=== PATIENT | male | born 1945 | race Caucasian/White ===

== ENCOUNTER → 2017-04-13 | Outpatient (CLI) | payer MEDICARE, OTHER ==
[~2017-04-13] MED LIST: ADVANCED IRON; ALBU17AE23 INH; ALBU8.5H2 IH; ASPI-875 PO; BECL8.7A5 IH; CARV12.53 PO; CEFU800T34 PO; CEPH500C PO; CLOP75TA28 PO; CLPD75T PO; CRV6.25T PO; DICL75TA2 PO; FOLI0.4T2 PO; FOLI1TAB24 PO; FOLIC ACID PO; FRS325T; FURO40TA4 PO; HYDR-3583 PO; HYDR-3812 PO; HYDR1TAB66 PO; INSASP10V SQ; INSU100I10 SQ; INSU100I14 SC; INSU100I14 SQ; INSU100I29 SC; INSU100V5 SQ; INSU100V6 SQ; KCL10CCR PO; KCL20TCR PO; METF-380 PO; METF1000 PO; METR500T PO; MTF500T; MTF500T PO; NORT50CA PO; NRT25C PO; OMEG-109 PO; OMG1KC PO; PANT40TA3 PO; PNT40TEC PO; POTA10TA14 PO; QVAR 40 MCG PO; RAMI5CAP PO; REGADENOSON 0.4 MG/5 ML SYR (LEXISCAN) IV ONE; RMP5C PO; SIMV40TA4 PO; SMV20T PO; VITAMIN B; VITAMIN C; WRF2T PO
[2017-04-13] MEDS: CATHETER FLUSH 10 ML SYR IV PRN ×2 (07:38→08:58)
[2017-04-13 08:56] VITALS: BP 181/76
--- NOTE | 2017-04-13 18:38 | STRESS TEST ---
DATE OF SERVICE: 04/13/2017 RESTING AND POST REGADENOSON TECHNETIUM 99M TETROFOSMIN SPECT CT IMAGING PRIMARY PHYSICIAN: Dr. Reddy CLINICAL DIAGNOSIS: Coronary artery disease, dilated cardiomyopathy, diabetes mellitus. Baseline images were carried out after injection of 10.64 mCi of technetium 9 Tetrofosmin. This was followed by 0.4 mg regadenoson and 30.2 mCi of technetium 9 Tetrofosmin for stress imaging. The electrocardiogram showed sinus rhythm at baseline and it did not change significantly with the regadenoson infusion. The electrocardiogram showed nonspecific ST abnormality throughout the study. The patient tolerated the procedure well and did not report symptoms. Review of images at rest and following stress does not indicate any distinct perfusion defects consistent with significant myocardial ischemia or infarction. Gated images show mild to moderate global hypokinesis with left ventricular ejection fraction of 42%. Left ventricular end diastolic volume is 135 mL. TID is absent (1.13). CONCLUSIONS: 1. Dilated cardiomyopathy with moderate cardiomegaly, global hypokinesis of the left ventricle, and left ventricular ejection fraction of 42%. 2. No evidence of significant myocardial ischemia or infarction on this study. Job ID: [id number] DocumentID: [id number] Dictated Date: 04/13/2017 11:38:59 Manager Publishing Date: 04/13/2017 13:33:18 Dictated By: KAMILLA QUESADA MD, MA, FACP, FACC,
== END ==
LOC: CARD 07:00
PROVIDERS: ATTEND Internal Medicine Cardiovascular Disease
DX: I25.10 Atherosclerotic heart disease of native coronary artery without angina pectoris (principal); I42.0 Dilated cardiomyopathy; N18.3 Chronic kidney disease, stage 3 (moderate); E88.1 Lipodystrophy, not elsewhere classified
CPT/HCPCS: 78452; 93017

== ENCOUNTER → 2017-04-19 | Outpatient (CLI) | payer MEDICARE, OTHER ==
[~2017-04-19] MED LIST changes: -REGADENOSON 0.4 MG/5 ML SYR (LEXISCAN) IV ONE
== END ==
LOC: CARD 12:51
PROVIDERS: ATTEND Internal Medicine Cardiovascular Disease
DX: I25.10 Atherosclerotic heart disease of native coronary artery without angina pectoris (principal); I42.0 Dilated cardiomyopathy; N18.3 Chronic kidney disease, stage 3 (moderate); E11.22 Type 2 diabetes mellitus with diabetic chronic kidney disease

== ENCOUNTER → 2018-01-11 | Outpatient (CLI) | payer MEDICARE, OTHER ==
[~2018-01-11] MED LIST changes: +ACHD5005 PO; -HYDR-3812 PO
--- NOTE | 2018-01-11 10:14 | Diagnostic Imaging Report ---
INDICATION: Chronic kidney disease, stage III. FINDINGS: The right kidney measures 10.3 x 4.1 x 5.9 cm. The left kidney measures 10.0 x 4.2 x 5.9 cm. The cortical thickness and echogenicity appear normal. No calculi or hydronephrosis is seen. The urinary bladder is unremarkable. Bilateral ureteral jets are visualized. IMPRESSION: Unremarkable renal ultrasound. Dictated by: Dictated on workstation # [id number]
== END ==
LOC: RAD 08:39
PROVIDERS: ATTEND Internal Medicine Nephrology
DX: N18.3 Chronic kidney disease, stage 3 (moderate) (principal); I12.9 Hypertensive chronic kidney disease with stage 1 through stage 4 chronic kidney disease, or unspecified chronic kidney disease; I50.9 Heart failure, unspecified; E11.65 Type 2 diabetes mellitus with hyperglycemia
CPT/HCPCS: 76770

== ENCOUNTER → 2019-07-02 | Outpatient (CLI) | payer MEDICARE, OTHER ==
[~2019-07-02] VITALS: Ht 175.3 cm; Wt 99.8 kg
[~2019-07-02] MED LIST changes: +CATHETER FLUSH 10 ML SYR IV PRN; +METF-399 PO; -METF1000 PO; -RAMI5CAP PO; +RAMI5CAP65 PO; +REGADENOSON 0.4 MG/5 ML SYR (LEXISCAN) IV ONE
[2019-07-02 12:57] VITALS: BP 137/74
[2019-07-02 13:00] VITALS: BP 168/74
--- NOTE | 2019-07-05 12:55 | STRESS TEST ---
DATE OF SERVICE: 07/02/2019 RESTING AND POST REGADENOSON TECHNETIUM-99M TETROFOSMIN SPECT CT IMAGING ORDERING PHYSICIAN: Dr. Perez. PRIMARY PHYSICIAN: . CLINICAL DIAGNOSES: Coronary artery disease, chronic systolic congestive heart failure, dilated cardiomyopathy. Baseline images were carried out after injection of 10.89 mCi of technetium-99m Tetrofosmin. This was followed by 0.4 mg of Regadenoson and 31 mCi of technetium-99m Tetrofosmin for stress imaging. The electrocardiogram showed sinus rhythm at baseline. There is nonspecific ST abnormality in the inferolateral leads. The electrocardiogram did not change significantly with Regadenoson infusion. The patient reported some shortness of breath and headache and flushing following Regadenoson infusion, which resolved in a few minutes after the cessation of Regadenoson injection. Review of images at rest and following stress does not indicate distinct perfusion defects consistent with significant myocardial ischemia or infarction. Gated images show mild to moderate global hypokinesis. Left ventricular ejection fraction is calculated to be 41%. Left ventricular end diastolic volume is 87 mL. TID is absent (0.99). CONCLUSIONS: 1. Mild to moderate global hypokinesis of left ventricle with an ejection fraction of 41%. 2. No evidence of significant myocardial ischemia or infarction on this study. Job ID: [id number] DocumentID: [id number] Dictated Date: 07/05/2019 10:01:25 Manager Ui Date: 07/05/2019 12:54:13 Dictated By: KAMILAL PEREZ MD, MA, FACP, FACC,
== END ==
LOC: CARD 10:02
PROVIDERS: ATTEND Internal Medicine Cardiovascular Disease
DX: I34.0 Nonrheumatic mitral (valve) insufficiency (principal); I25.10 Atherosclerotic heart disease of native coronary artery without angina pectoris; I50.22 Chronic systolic (congestive) heart failure; E11.22 Type 2 diabetes mellitus with diabetic chronic kidney disease; N18.3 Chronic kidney disease, stage 3 (moderate); I42.0 Dilated cardiomyopathy; I25.5 Ischemic cardiomyopathy; E78.5 Hyperlipidemia, unspecified; I73.9 Peripheral vascular disease, unspecified
CPT/HCPCS: 78452; 93017; 93306

== ENCOUNTER 2020-04-18 16:38 | Inpatient (IN) | payer MEDICARE, OTHER ==
[~2020-04-18] VITALS: Ht 179 cm; Wt 105.0 kg
[~2020-04-18 16:38] MED LIST changes: -CATHETER FLUSH 10 ML SYR IV PRN; -REGADENOSON 0.4 MG/5 ML SYR (LEXISCAN) IV ONE; +SIMV40TA25 PO
--- NOTE | 2020-04-18 16:53 | ED Back Pain ---
General Stated Complaint: FALL - BACK PAIN Source of Information: Patient Exam Limitations: No Limitations History of Present Illness Date Seen by Provider: Apr 18, 2020 Time Seen by Provider: 16:51 Initial Comments Left-sided thoracic back pain. He was working on his lawnmower when he fell backwards. No other injury. He only has one leg which is right leg. Location: T-Spine Timing/Duration: 1-2 Days Severity: Moderate Associated Symptoms: denies symptoms Allergies and Home Medications Allergies Coded Allergies: NKANo Known Allergies (Unverified Allergy, Mild, 07/25/07) Home Medications Amoxicillin/Potassium Clav 1 Each Tablet, 1 EACH PO BID Prescribed by: MARY STREETER on 04/18/201800 Aspirin 81 Mg Tablet.dr, 81 MG PO HS, (Reported) Carvedilol 12.5 Mg Tablet, 12.5 MG PO BID, (Reported) Clopidogrel Bisulfate 75 Mg Tablet, 75 MG PO DAILY, (Reported) Furosemide 40 Mg Tablet, 40 MG PO DAILY, (Reported) Insulin Aspart 300 Units/3 Ml Solution, 10 UNITS SC AC, (Reported) Insulin Detemir 100 Unit/1 Ml Insuln.pen, 20 UNITS SC HS, (Reported) Nortriptyline HCl 50 Mg Capsule, 50 MG PO HS, (Reported) [place]-3 Fatty Acids/Fish Oil 1 Each Capsule, 1,200 MG PO BID, (Reported) Pantoprazole Sodium 40 Mg Tablet.dr, 40 MG PO DAILY, (Reported) Prednisone 20 Mg Tab, 40 MG PO DAILY Prescribed by: MARY STREETER on 04/18/201800 Ramipril 5 Mg Capsule, 5 MG PO DAILY, (Reported) Simvastatin 40 Mg Tablet, 40 MG PO HS, (Reported) Patient Home Medication List Home Medication List Reviewed: Yes Review of Systems Constitutional: see HPI EENTM: see HPI Respiratory: no symptoms reported Cardiovascular: no symptoms reported Genitourinary: no symptoms reported Musculoskeletal: no symptoms reported Psychiatric/Neurological: No Symptoms Reported Past Stxxlqn-Gnjssj-Lrydza Hx Patient Social History Recent Foreign Travel: No Contact w/Someone Who Travel: No Immunizations Up To Date Tetanus Booster (TDap): Unknown PED Vaccines UTD: No Date of Pneumonia Vaccine: Jun 10, 2011 Date of Influenza Vaccine: Aug 07, 2015 Past Medical History Gallbladder COPD Currently Using CPAP: No Currently Using BIPAP: No Heart Attack, High Cholesterol, Hypertension Reproductive Disorders: No Sexually Transmitted Disease: No HIV/AIDS: No Abdominal Hernia, Gastroesophageal Reflux Amputee Diabetes, Insulin dep Loss of Vision: Denies Hearing Impairment: Hard of Hearing Adverse Reaction/Blood Tranf: No Family Medical History Cardiovascular disease 19 FATHER, Onset:60 years & older FH: breast cancer 19 MOTHER, Onset:Unknown G8 SISTER, Onset:Unknown FHx: mental retardation G8 SISTER, Onset:Pre- Myocardial infarction G8 BROTHER, Onset:Unknown G8 BROTHER, Onset:Unknown G8 BROTHER, Onset:Unknown G8 BROTHER, Onset:Unknown G8 BROTHER, Onset:Unknown G8 SISTER, Onset:40's - 50 Physical Exam Vital Signs Vital Signs - First Documented 04/18/20 04/18/20 16:54 16:56 Temp 36.9 Pulse 84 Resp 18 B/P (MAP) 158/67 (97) Pulse Ox 93 O2 Delivery Room Air O2 Flow Rate 2.00 FiO2 92 Capillary Refill : Height, Weight, BMI Height: 5'9.00" Weight: 220lbs. 0.0oz. 99.520350dh; 32.5 BMI Method:Stated General Appearance: WD/WN, Moderate Distress, Obese Neck: Full Range of Motion, Normal Inspection Respiratory: Normal Breath Sounds, No Accessory Muscle Use, No Respiratory Distress Gastrointestinal: Normal Bowel Sounds, Non Tender, Soft Neurologic/Psychiatric: Alert, Oriented x3 Skin: Normal Color Progress/Results/Core Measures Results/Orders Lab Results Laboratory Tests Test 04/18/20 16:54 04/18/20 18:20 Range/Units White Blood Count 14.9 H 4.3-11.0 10^3/uL Red Blood Count 4.66 4.35-5.85 10^6/uL Hemoglobin 14.1 13.3-17.7 G/DL Hematocrit 42 40-54 % Mean Corpuscular Volume 91 80-99 FL Mean Corpuscular Hemoglobin 30 25-34 PG Mean Corpuscular Hemoglobin Concent 33 32-36 G/DL Red Cell Distribution Width 14.4 10.0-14.5 % Platelet Count 257 130-400 10^3/uL Mean Platelet Volume 11.5 H 7.4-10.4 FL Neutrophils (%) (Auto) 64 42-75 % Lymphocytes (%) (Auto) 20 12-44 % Monocytes (%) (Auto) 11 0-12 % Eosinophils (%) (Auto) 4 0-10 % Basophils (%) (Auto) 0 0-10 % Neutrophils # (Auto) 9.6 H 1.8-7.8 X 10^3 Lymphocytes # (Auto) 3.0 1.0-4.0 X 10^3 Monocytes # (Auto) 1.7 H 0.0-1.0 X 10^3 Eosinophils # (Auto) 0.6 H 0.0-0.3 10^3/uL Basophils # (Auto) 0.0 0.0-0.1 10^3/uL Neutrophils % (Manual) 58 % Lymphocytes % (Manual) 20 % Monocytes % (Manual) 5 % Eosinophils % (Manual) 9 % Basophils % (Manual) 0 % Band Neutrophils 0 % Reactive Lymphocytes 8 % Anisocytosis SLIGHT Sodium Level 141 135-145 MMOL/L Potassium Level 4.6 3.6-5.0 MMOL/L Chloride Level 106 98-107 MMOL/L Carbon Dioxide Level 21 21-32 MMOL/L Anion Gap 14 5-14 MMOL/L Blood Urea Nitrogen 47 H 7-18 MG/DL Creatinine 2.35 H 0.60-1.30 MG/DL Estimat Glomerular Filtration Rate 27 BUN/Creatinine Ratio 20 Glucose Level 83 70-105 MG/DL Calcium Level 9.6 8.5-10.1 MG/DL Corrected Calcium 9.4 8.5-10.1 MG/DL Total Bilirubin 0.4 0.1-1.0 MG/DL Aspartate Amino Transf (AST/SGOT) 21 5-34 U/L Alanine Aminotransferase (ALT/SGPT) 20 0-55 U/L Alkaline Phosphatase 59 40-136 U/L B-Type Natriuretic Peptide 20.3 <100.0 PG/ML Total Protein 7.8 6.4-8.2 GM/DL Albumin 4.2 3.2-4.5 GM/DL My Orders Orders - MARY STREETER [facility] Ct Chest Wo (04/18/20 16:50) Ed Iv/Invasive Line Start (04/18/20 16:50) Fentanyl Injection (Sublimaze Injection (04/18/20 17:00) Cbc With Automated Diff (04/18/20 17:34) Comprehensive Metabolic Panel (04/18/20 17:34) BNP (04/18/20 17:34) Manual Differential (04/18/20 16:54) Coronavirus Sars-Cov-2 So 2018 (04/18/20 17:47) Methylprednisolone Sod Succ (Solu-Medrol (04/18/20 18:15) Ceftriaxone For Iv Use (Rocephin For I (04/18/20 18:15) Furosemide Injection (Lasix Injection) (04/18/20 18:15) Rx-Hydrocodone/Apap 5-325 Mg (Rx-Vicodin (04/18/20 18:45) Arterial Blood Gas (04/18/20 18:58) Procalcitonin (Pct) (04/18/20 18:58) Medications Given in ED Current Medications Medications Dose Ordered Sig/Amelia Route Start Time Stop Time Status Last Admin Dose Admin Ceftriaxone Sodium 1000 mg/ Sterile Water 10 ml @ 200 mls/hr ONCE ONCE IV 04/18/20 18:15 04/18/20 18:17 DC 04/18/20 18:16 200 MLS/HR Fentanyl Citrate 50 mcg ONCE ONCE IVP 04/18/20 17:00 04/18/20 17:01 DC 04/18/20 17:20 50 MCG Furosemide 40 mg ONCE ONCE IVP 04/18/20 18:15 04/18/20 18:16 DC 04/18/20 18:16 40 MG Methylprednisolone Sodium Succinate 80 mg ONCE ONCE IV 04/18/20 18:15 04/18/20 18:16 DC 04/18/20 18:28 80 MG Vital Signs/I&O 04/18/20 04/18/20 16:54 16:56 Temp 36.9 Pulse 84 Resp 18 B/P (MAP) 158/67 (97) Pulse Ox 93 94 O2 Delivery Room Air Nasal Cannula O2 Flow Rate 2.00 FiO2 92 Departure Communication (Admissions) Time/Spoke to Admitting Phy: 19:[address] Escobedo who agrees to admit, consult Dr. Hardy due to the chest wall pain from trauma, consult Dr. Petty for thepulmonary questions. 1751-given CT findings and hypoxia (88% on room air, 95% on 2 L) I did recommend he be swabbed for Covid and admitted to the hospital for supplemental oxygen as well as potentially Lasix and cardiology consult. He states he wants to go home. I discussed with him the risks of going home including worsening hypoxia, wo rsening of heart failure, or permanent disability. He agrees to sign out AGAINST MEDICAL ADVICE and go home. He would agree to using some Lasix. He denies any previous history of lung troubles. 1901-patient has now decided to stay and be admitted as he is unable to get into the wheelchair because of severe left-sided thoracic back pain. Impression Primary Impression: Hypoxia Additional Impressions: Contusion of back CHF (congestive heart failure) Disposition: ADMITTED INPATIENT Condition: Stable Admissions Decision to Admit Reason: Admit from ER (General) Decision to Admit/Date: Apr 18, 2020 Time/Decision to Admit Time: 19:03 Departure-Patient Inst. Decision time for Depature: 17:54 Referrals: JS CUNHA MD (PCP/Family) Primary Care Physician Patient Instructions: Bruised Rib Add. Discharge Instructions: 1. Your chest CAT scan has an abnormal appearance which could indicate heart failure or infectious process or structural lung disease like COPD. Admission to the hospital for further workup was recommended as well as for supplemental oxygen. He needs to follow-up with his regular doctor this week for recheck. Your Covid19 swab will be resulted within 24-48 hours. He needs to go home and self quarantine away from family and friends until that has been returned. Take antibiotics and steroids and diuretic as directed. Scripts Prednisone (Prednisone) 20 Mg Tab 40 MG PO DAILY, #6 TAB 0 Refills Prov: MARY STREETER APRN 04/18/20 Amoxicillin/Potassium Clav (Augmentin 875-125 Tablet) 1 Each Tablet 1 EACH PO BID, #14 TAB 0 Refills Prov: MARY STREETER APRN 04/18/20 Images Torso/Trunk 1 - Tenderness Copy Copies To 1: JS CUNHA MD, PETER J APRN Apr 18, 2020 16:53
[2020-04-18] MEDS ORDERED: fentaNYL INJECTION 100 MCG/2 ML AMP IVP ONE (17:00)
[2020-04-18 17:38] LABS: BASOPHILS % (AUTO) 0 % (0-10); EOSINOPHILS # (AUTO) 0.6 10^3/uL (0.0-0.3); EOSINOPHILS % (AUTO) 4 % (0-10); HEMATOCRIT 42 % (40-54); HEMOGLOBIN 14.1 G/DL (13.3-17.7); LYMPHOCYTES % (AUTO) 20 % (12-44); MEAN CORPUSCULAR HEMOGLOBIN 30 PG (25-34); MEAN CORPUSCULAR HGB CONC 33 G/DL (32-36); MEAN CORPUSCULAR VOLUME 91 FL (80-99); MEAN PLATELET VOLUME 11.5 FL (7.4-10.4); MONOCYTES # (AUTO) 1.7 X 10^3 (0.0-1.0); MONOCYTES % (AUTO) 11 % (0-12); NEUTROPHILS # (AUTO) 9.6 X 10^3 (1.8-7.8); NEUTROPHILS % (AUTO) 64 % (42-75); PLATELET COUNT 257 10^3/uL (130-400); RED CELL DISTRIBUTION WIDTH 14.4 % (10.0-14.5); WHITE BLOOD COUNT 14.9 10^3/uL (4.3-11.0)
[2020-04-18 17:43] LABS: ALBUMIN 4.2 GM/DL (3.2-4.5)
[2020-04-18 17:44] LABS: POTASSIUM 4.6 MMOL/L (3.6-5.0)
--- NOTE | 2020-04-18 17:44 | Diagnostic Imaging Report ---
PROCEDURE: CT chest without contrast. TECHNIQUE: Multiple contiguous axial images were obtained through the chest without the use of intravenous contrast. Auto Exposure Controls were utilized during the CT exam to meet ALARA standards for radiation dose reduction. INDICATION: Fall. Back pain. COMPARISON: None. FINDINGS: Cardiac and mediastinal structures show mild cardiomegaly. Indwelling AICD is noted. There is moderate to advanced calcified aortic and coronary atherosclerosis. Right coronary arterial stent is noted. There is no large pericardial effusion. No pathologically enlarged or morphologically abnormal adenopathy is seen within the mediastinum, marisol nor axilla. Evaluation of lung cobos demonstrates background moderate emphysematous disease within the bilateral mid and upper lung cobos. Note is made of a 1.4 x 1.0 cm nodular opacity within the posterior medial right upper lobe (image 39, series 3). Note is made, however, of mild scattered ground glass densities with septal thickening. No other focal consolidation is seen. There is no large effusion or pneumothorax on either side. Osseous structures show age-related degenerative changes. No acute bony abnormalities are seen. Included portions of the upper abdomen show no acute abnormality. IMPRESSION: 1. No acute cardiopulmonary process. 2. Mild cardiomegaly with probable interstitial pulmonary edema. 3. Moderate emphysematous disease within the bilateral mid and upper lung cboos. 4. Nodular density within the posterior medial margins of the right upper lobe. Findings could be on the basis of focal inflammatory or infectious process, although true soft tissue nodule cannot be excluded. Further characterization with CT PET versus CT-guided biopsy is advised. Dictated by: Dictated on workstation # [id number]
[2020-04-18 17:45] LABS: CALCIUM 9.6 MG/DL (8.5-10.1)
[2020-04-18 17:46] LABS: TOTAL PROTEIN 7.8 GM/DL (6.4-8.2)
[2020-04-18 17:48] LABS: BILIRUBIN,TOTAL 0.4 MG/DL (0.1-1.0)
[2020-04-18 17:50] LABS: CREATININE SERUM 2.35 MG/DL (0.60-1.30)
[2020-04-18 17:54] LABS: ANISOCYTOSIS SLIGHT; BAND NEUTROPHILS 0 %; BASOPHILS % (MANUAL) 0 %; EOSINOPHILS % (MANUAL) 9 %; LYMPHOCYTES % (MANUAL) 20 %; MONOCYTES % (MANUAL) 5 %; NEUTROPHILS % (MANUAL) 58 %; REACTIVE LYMPHOCYTES 8 %
[2020-04-18] MEDS ORDERED: PRD20T PO (18:01)
[2020-04-18] MEDS ORDERED: AMOX-358 PO (18:01)
[2020-04-18] MEDS ORDERED: methylPREDNISolone 40 MG/ML (Solu-MEDROL) VIAL IV ONE (18:15)
[2020-04-18] MEDS ORDERED: cefTRIAXone FOR IV USE 1,000 MG in WATER (STERILE) FOR INJECTION 10 ML IV ONE (18:15)
[2020-04-18] MEDS ORDERED: FUROSEMIDE 40 MG/4 ML INJ (LASIX) IVP ONE (18:15)
--- NOTE | 2020-04-18 18:15 | NUR ---
OXYGEN TURNED OFF.
--- NOTE | 2020-04-18 18:30 | NUR ---
PULSE OX 91%RA.
[2020-04-18] MEDS ORDERED: RX-HYDROCODONE/APAP 5/325 MG #4 TAB PK PO PRN (18:45)
--- NOTE | 2020-04-18 18:53 | NUR ---
AFTER ATTEMPTING TO GET PT UP TO CHAIR PT STATES HE CANT BECAUSE OF PAIN. DECIDED TO BE ADMITTED AFTER IV DC AND SIGNED AMA PAPER WORK. PT REFUSES TO PUT OXYGEN BACK ON. MARY NOTIFIED.
--- OUTSIDE RECORDS SUMMARY | 2020-04-18 19:31 | XMS REPORT ---
Author Author Carroll CUNHA Organization [facility] Address [address] [place] [address] Care Team Providers Care Tile Molder Name Role Phone JS CUNHA Unavailable PROBLEMS Type Condition ICD9-CM Code DFG22-GA Code Onset Dates Condition S tatus SNOMED Code Problem Coronary disease I25.10 Active 537 41495 Problem Arthritis M19.90 Active 6200814 Problem Gastroesophageal reflux disease, esophagitis pre sence not specified K21.9 Active 662737716 Problem Chronic kidney disease, stage IV (severe) N18.4 Active 947655183 Problem Secondary hyperparathyroidism of renal origin N25. 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 391325164 Problem Chronic systolic (congestive) heart failure I50.22 Active 261877823 Problem Essential hypertension I10 Active 04506425 Problem Anxiety F41.9 Active 95017279 Problem Amputated left leg Z89.612 Active 1 [id number] Problem Phantom limb pain G54.6 Active 57 02913443489 Problem Diabetes E11.9 Active 500815283 ALLERGIES No Information ENCOUNTERS Encounter Location Date Diagnosis [facility] [address] [facility] [id number] [address] [place] [id number] 18 Jan, [id number] [place] [phone] 17 Jan, 2020 Anxiety F41.9 [facility] [address] [facility] [id number] [address] [place] [phone] Jan, Nail hypertrophy L60.2 ; 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 ; Onychomycosis B35.1 and Self-care deficit for grooming and hygiene Z74.1 [place] [address] [place] [id number] [address] [place] [id number] 25 Dec, 2019 Type 2 diabetes mellitus wit h diabetic nephropathy E11.21 ; Phantom limb pain G54.6 ; Chronic kidney disease, stage IV (severe) N18.4 ; Secondary hyperparathyroidism of renal origin N25.81 ; Chronic systolic (congestive) heart failure I50.22 and Peripheral vascular disease, unspecified I73.9 [place] [address] [place] [id number] [place] [phone] 17 Dec, 2019 [place] [address] [place] [id number] [place] [phone] Dec, [place] [address] [place] [id number] [place] [phone] Oct, Nail hypertrophy L60.2 and O nychomycosis B35.1 [place] [address] [place] [id number] [place] [phone] Sep, Diabetes E11.9 ; Anxiety F41 .9 and Phantom limb pain G54.6 [place] [address] [place] [id number] [address] [place] [phone] Sep, [place] [address] [place] [id number] [place] [phone] Sep, [place] [address] [place] [id number] [address] [place] [phone] Aug, Diarrhea, unspecified type R 19.7 [facility] [address] [place] [id number] [address] [place] [phone] Aug, [facility] [address] [place] [id number] [address] [place] [phone] Aug, [place] [address] [place] [id number] [address] [place] [phone] Jul, Anxiety F41.9 [place] [address] [place] [id number] [address] [place] [phone] May, Phantom limb pain G54.6 and Amputated left leg Z89.612 [facility] [address] [id number] [address] [place] [phone] Apr, Phantom limb pain G54.6 [facility] [address] [id number] [address] [place] [id number] Apr, [facility] [address] [facility] [id number] [address] [place] [phone] Apr, [facility] [address] [facility] [id number] [address] [place] [phone] Apr, Nail hypertrophy L60.2 and S elf-care deficit for grooming and hygiene Z74.1 [place] [address] [facility] [id number] [address] [place] [phone] March, Type 2 diabetes mellitus wit h diabetic nephropathy E11.21 ; Chronic kidney disease, stage IV (severe) N18.4 ; Anxiety F41.9 and Amputated left leg Z89.612 [facility] [address] [facility] [id number] [address] [place] [phone] March, Anxiety F41.9 and Transient weakness of right lower extremity R29.898 [place] [address] [facility] [id number] [address] [place] [phone] March, [facility] [address] [facility] [id number] [address] [place] [phone] March, [facility] [address] [facility] [id number] [address] [place] [phone] Feb, [facility] [address] [facility] [id number] [address] [place] [id number] Aug, Anxiety F41.9 [facility] [address] [facility] [id number] [address] [place] [id number] Aug, Medicare annual wellness vis it, initial Z00.00 ; Encounter for immunization Z23 ; Coronary disease I25.10 ; Type 2 diabetes mellitus with diabetic nephropathy E11.21 ; Chronic kidney disease, stage IV (severe) N18.4 ; Secondary hyperparathyroidism of renal origin N25.81 ; Anxiety F41.9 and Gastroesophageal reflux disease, esophagitis presence not specified K21.9 [facility] [address] [place] [id number] [address] [place] [id number] Jul, Friction blister of right lo wer extremity, initial encounter S80.821A [place] [address] [address] Jul, Localized edema R60.0 ; Type 2 diabetes mellitus with diabetic nephropathy E11.21 ; Coronary disease I25.10 and Anxiety F41.9 [place] [address] [id number] Jun, [place] [address] [address] March, Type 2 diabetes mellitus wit h diabetic nephropathy E11.21 ; 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 ; Chronic kidney disease, stage IV (severe) N18.4 ; Secondary hyperparathyroidism of renal origin N25.81 ; Coronary disease I25.10 and Gastroesophageal reflux disease, esophagitis presence not specified K21.9 [place] [address] [address] Nov, Type 2 diabetes mellitus wit hout complications E11.9 ; Coronary disease I25.10 and Essential hypertension I10 [place] [id number] [place] [phone] May, Diabetes E11.9 [place] [address] [place] [id number] [address] [place] [phone] Apr, Type 2 diabetes mellitus wit hout complications E11.9 and Arthritis M19.90 [place] [address] [place] [id number] [address] [place] [phone] March, Diabetes E11.9 [place] [address] [place] [id number] [address] [place] [phone] March, Diabetes E11.9 [place] [address] [place] [id number] [address] [place] [phone] March, [facility] [address] [id number] [address] [place] [phone] Feb, Diabetes E11.9 [facility] [address] [id number] [address] [place] [phone] Feb, Diabetes E11.9 [facility] [address] [id number] [address] [place] [phone] Jan, [facility] [address] [id number] [address] [place] [phone] Jan, Diabetes E11.9 [facility] [address] [id number] [address] [place] [phone] Jan, Type 2 diabetes mellitus wit hout complications E11.9 [facility] [address] [id number] [address] [place] [phone] Oct, [facility] [address] [id number] [address] [place] [phone] Oct, Gastroesophageal reflux dise ase, esophagitis presence not specified K21.9 [facility] [address] [id number] [address] [place] [phone] Sep, [facility] [address] [facility] [id number] [address] [place] [phone] Sep, [facility] [address] [id number] [address] [place] [phone] Sep, [facility] [address] [id number] [address] [place] [phone] Aug, [facility] [address] [facility] [id number] [address] [place] [phone] Aug, Diabetes E11.9 and Encounter for immunization Z23 [facility] [address] [id number] [address] [place] [id number] Aug, [facility] [address] [id number] [address] [place] [address], [place] [id number] 08 Jul, 2016 [facility] [address] [id number] [address] [place] [address], [place] [id number] Jun, [facility] [address] [id number] [address] [place] [address], [place] [id number] May, Diabetes E11.9 [facility] [address] [id number] [address] [place] [address], [place] [id number] Apr, [facility] [address] [id number] [address] [place] [address], [place] [id number] Apr, [facility] [address] [id number] [address] [place] [address], [place] [id number] March, [facility] [address] [id number] [address] [place] [address], [place] [id number] March, [facility] [address] [id number] [address] [place] [address], [place] [id number] Feb, [facility] [address] [id number] [address] [place] [address], [place] [id number] Feb, [facility] [address] [id number] [address] [place] [address], [place] [id number] 18 Feb, 2016 [facility] [address] [id number] [address] [place] [phone] 14 Feb, 2016 [facility] [address] [id number] [address] [place] [address], [place] [id number] Feb, [facility] [address] [id number] [address] [place] [address], [place] [id number] Feb, Type 2 diabetes mellitus wit hout complications E11.9 [facility] [address] [id number] [address] [place] [address], [place] [id number] 08 Feb, 2016 [facility] [address] [id number] [address] [place] [address], [place] [id number] Jan, [facility] [address] [id number] [address] [place] [id number] Dec, Eustachian tube dysfunction H69.80 and Diabetes E11.9 [facility] [address] [facility] [id number] [address] [place] [phone] Dec, [facility] [address] [facility] [id number] [address] [place] [phone] Dec, [facility] [address] [id number] Dec, Type 2 diabetes mellitus wit hout complications E11.9 ; Atherosclerotic heart disease of [place] coronary artery without angina pectoris I25.10 and Diabetes E11.9 [facility] [address] [facility] [id number] [id number] Dec, [facility] [address] [id number] Dec, CHF (congestive heart failur e) I50.9 [facility] [address] [place] [id number] [address] [place] [phone] Nov, Diabetes E11.9 and Coronary disease I25.10 [facility] [address] [place] [id number] [address] [place] [phone] Oct, [facility] [address] [place] [id number] [address] [place] [phone] Aug, [facility] [address] [place] [id number] [address] [place] [id number] Jul, [facility] [address] [place] [id number] [address] [place] [id number] 08 Jul, 2015 DM w/o complication type II 250.00 and Spontaneous bleeding of digits 459.0 [facility] [address] [place] [id number] [address] [place] [id number] Apr, [facility] [address] [place] [id number] [address] [place] [phone] Apr, [facility] [address] [place] [id number] [address] [place] [id number] March, CHF (congestive heart failur e) 428.0 and Coronary atherosclerosis of unspecified type of vessel, [place] or graft 414.00 [facility] [address] [id number] [address] [place] [phone] March, [facility] [address] [id number] [address] [place] [phone] Feb, [facility] [address] [id number] [address] [place] [phone] Feb, [facility] [address] [id number] [address] [place] [phone] Jan, [facility] [address] [id number] [address] [place] [phone] Jan, [facility] [address] [id number] [address] [place] [phone] Dec, [facility] [address] [id number] [address] [place] [phone] Dec, [facility] [address] [id number] [address] [place] [phone] Dec, [facility] [address] [id number] [address] [place] [id number] Dec, [facility] [address] [id number] [address] [place] [id number] Dec, [facility] [address] [id number] [address] [place] [id number] Dec, [facility] [address] [id number] [address] [place] [id number] Nov, [facility] [address] [id number] [address] [place] [phone] Nov, [facility] [address] [id number] [address] [place] [id number] Oct, [facility] [address] [id number] [address] [place] [address], [place] [id number] Sep, [facility] [address] [id number] [address] [place] [address], [place] [id number] Sep, [facility] [address] [id number] [address] [place] [address], [place] [id number] Sep, [facility] [address] [id number] [address] [place] [address], [place] [id number] Sep, [facility] [address] [id number] [address] [place] [address], [place] [id number] Jul, [facility] [address] [id number] [address] [place] [address], [place] [id number] Jul, [facility] [address] [id number] [address] [place] [address], [place] [id number] Jul, [facility] [address] [id number] [address] [place] [address], [place] [id number] Jul, [facility] [address] [id number] [address] [place] [address], [place] [id number] Jun, [facility] [address] [id number] [address] [place] [address], [place] [id number] Jun, [facility] [address] [id number] [address] [place] [address], [place] [id number] Jun, [facility] [address] [id number] [address] [place] [address], [place] [id number] Jun, [facility] [address] [id number] [address] [place] [address], [place] [id number] Apr, [facility] [address] [id number] [address] [place] [address], [place] [id number] Apr, [facility] [address] [id number] [address] [place] [address], [place] [id number] Apr, [facility] [address] [id number] [address] [place] [address], [place] [id number] Apr, [facility] [address] [id number] [address] [place] [address], [place] [id number] Dec, [facility] [address] [id number] [address] [place] [address], [place] [id number] Dec, [facility] [address] [id number] [address] [place] [address], [place] [id number] Dec, [facility] [address] [id number] [address] [place] [address], [place] [id number] Dec, [facility] [address] [id number] [address] [place] [address], [place] [id number] Dec, [facility] [address] [id number] [address] [place] [address], [place] [id number] Dec, [facility] [address] [id number] [address] [place] [address], [place] [id number] Nov, [facility] [address] [id number] [address] [place] [address], [place] [id number] Nov, [facility] [address] [id number] [address] [place] [address], [place] [id number] Sep, [facility] [address] [id number] [address] [place] [address], [place] [id number] Sep, [facility] [address] [id number] [address] [place] [address], [place] [id number] Sep, [facility] [address] [id number] [address] [place] [address], [place] [id number] Sep, [facility] [address] [id number] [address] [place] [address], [place] [id number] Sep, [facility] [address] [id number] [address] [place] [address], [place] [id number] Aug, [facility] [address] [id number] [address] [place] [address], [place] [id number] Aug, [facility] [address] [id number] [address] [place] [address], [place] [id number] Aug, [facility] [address] [id number] [address] [place] [address], [place] [id number] Aug, [facility] [address] [id number] [address] [place] [address], [place] [id number] Jul, [facility] [address] [id number] [address] [place] [address], [place] [id number] Jun, [facility] [address] [id number] [address] [place] [address], [place] [id number] May, [facility] [address] [id number] [address] [place] [address], [place] [id number] May, [facility] [address] [id number] [address] [place] [address], [place] [id number] May, [facility] [address] [id number] [address] [place] [address], [place] [id number] Apr, [facility] [address] [id number] [address] [place] [address], [place] [id number] Apr, [facility] [address] [id number] [address] [place] [address], [place] [id number] March, [facility] [address] [id number] [address] [place] [address], [place] [id number] March, [facility] [address] [id number] [address] [place] [address], [place] [id number] 18 Feb, 2013 [facility] [address] [id number] [address] [place] [address], [place] [id number] 15 Feb, 2013 [facility] [address] [id number] [address] [place] [address], [place] [id number] Feb, [facility] [address] [id number] [address] [place] [address], [place] [id number] Jan, [facility] [address] [id number] [address] [place] [address], [place] [id number] Jan, [facility] [address] [id number] [address] [place] [address], [place] [id number] Jan, [facility] [address] [id number] [address] [place] [address], [place] [id number] Dec, [facility] [address] [id number] [address] [place] [address], [place] [id number] Dec, [facility] [address] [id number] [address] [place] [address], [place] [id number] Dec, [facility] [address] [id number] [address] [place] [address], [place] [id number] Nov, [facility] [address] [id number] [address] [place] [address], [place] [id number] Nov, [facility] [address] [id number] [address] [place] [address], [place] [id number] Nov, [facility] [address] [id number] [address] [place] [address], [place] [id number] Nov, [facility] [address] [id number] [address] [place] [address], [place] [id number] Nov, [facility] [address] [id number] [address] [place] [address], [place] [id number] Nov, [facility] [address] [id number] [address] [place] [address], [place] [id number] Oct, [facility] [address] [id number] [address] [place] [address], [place] [id number] Oct, [facility] [address] [id number] [address] [place] [address], [place] [id number] Oct, [facility] [address] [id number] [address] [place] [address], [place] [id number] Oct, [facility] [address] [id number] [address] [place] [address], [place] [id number] Sep, [facility] [address] [id number] [address] [place] [address], [place] [id number] Sep, [facility] [address] [id number] [address] [place] [address], [place] [id number] Sep, [facility] [address] [id number] [address] [place] [address], [place] [id number] Sep, [facility] [address] [id number] [address] [place] [address], [place] [id number] Aug, [facility] [address] [id number] [address] [place] [address], [place] [id number] 24 Jul, 2012 [facility] [address] [id number] [address] [place] [address], [place] [id number] Jul, [facility] [address] [id number] [address] [place] [address], [place] [id number] Jul, [facility] [address] [id number] [address] [place] [address], [place] [id number] Jun, [facility] [address] [id number] [address] [place] [address], [place] [id number] Jun, [facility] [address] [id number] [address] [place] [address], [place] [id number] Jun, [facility] [address] [id number] [address] [place] [address], [place] [id number] May, [facility] [address] [id number] [address] [place] [address], [place] [id number] May, [facility] [address] [id number] [address] [place] [address], [place] [id number] Apr, [facility] [address] [id number] [address] [place] [address], [place] [id number] Apr, [facility] [address] [id number] [address] [place] [address], [place] [id number] Apr, [facility] [address] [id number] [address] [place] [address], [place] [id number] Apr, [facility] [address] [id number] [address] [place] [address], [place] [id number] March, [facility] [address] [id number] [address] [place] [address], [place] [id number] March, [facility] [address] [id number] [address] [place] [address], [place] [id number] March, [facility] [address] [id number] [address] [place] [address], [place] [id number] Jan, [facility] [address] [id number] [address] [place] [address], [place] [id number] Jan, [facility] [address] [id number] [address] [place] [address], [place] [id number] Jan, [facility] [address] [id number] [address] [place] [address], [place] [id number] 16 Nov, 2011 [facility] [address] [id number] [address] [place] [address], [place] [id number] Nov, [facility] [address] [id number] [address] [place] [address], [place] [id number] Nov, [facility] [address] [id number] [address] [place] [address], [place] [id number] Nov, [facility] [address] [id number] [address] [place] [address], [place] [id number] Oct, [facility] [address] [id number] [address] [place] [address], [place] [id number] Oct, [facility] [address] [id number] [address] [place] [address], [place] [id number] Oct, [facility] [address] [id number] [address] [place] [address], [place] [id number] Oct, [facility] [address] [id number] [address] [place] [address], [place] [id number] Oct, [facility] [address] [id number] [address] [place] [id number] Oct, [facility] [address] [facility] [id number] [address] [place] [id number] Oct, IMMUNIZATIONS No Known Immunizations SOCIAL HISTORY Never Assessed REASON FOR VISIT PLAN OF CARE VITAL SIGNS MEDICATIONS Unknown Medications RESULTS No Results PROCEDURES No Known procedures INSTRUCTIONS MEDICATIONS ADMINISTERED No Known Medications MEDICAL (GENERAL) HISTORY Type Description Date Medical History chronic obstructive pulmonary disease (C OPD) Medical History diabetes mellitus Medical History Hypertension Medical History Hyperlipidemia Medical History Stroke syndrome 2006 Surgical History Left leg amputation 1998 Surgical History Cardiothoracic surgery Defibrillator 200 6 Hospitalization History surgeries
--- OUTSIDE RECORDS SUMMARY | 2020-04-18 19:31 | XMS REPORT ---
Author Author [email or web address] [facility] [employer] TechnologiesM[facility] [place] Address [address] [place] [address] Care Team Providers Care Manager Intel Name Role Phone JS CUNHA Unavailable Unavailable GUERLINE, JS Unavailable LOIDA VICTORIA Unavailable Unavailable JS CUNHA Unavailable HUERTER, JS F Unavailable NO, LOCAL PHYSICIAN Unavailable Unavailable JS CUNHA Unavailable HUERTER, JS Unavailable HUERTER, JS Unavailable HUERTER, JS Unavailable HUERTER, JS Unavailable HUERTER, JS Unavailable SANGITA ALVAREZ FACC, KAMILLA FACP CCDS Unavailable Unavailfabian e JS CUNHA Unavailable HUERTER, JS Unavailable ANDRIY HUTCHINSON Unavailable HUERTER, JS Unavailable Migration, Doctor Unavailable Unavailable Migration, Doctor Unavailable Unavailable Migration, Doctor Unavailable Unavailable Migration, Doctor Unavailable Unavailable JS CUNHA Unavailable Unavailable KELLYERTLEROY, JS Unavailable HUERTER, JS Unavailable HUERTER, JS Unavailable HUBRYANER, JS Unavailable HUERTER, JS Unavailable HUERTER, JS Unavailable HUERTER, JS Unavailable HUERTER, JS Unavailable HUERTER, JS Unavailable HUERTER, JS Unavailable HUERTER, JS Unavailable JONITZEL HAAS Unavailable HUERTER, JS Unavailable SANGITA ALVAREZ [facility], KAMILLA WHITMAN CCDS Unavailable Unavailfabian CUNHA MD, JS Smith Unavailable Unavailable NINI ALVAREZ, JOANIE Garcia Unavailable Unavailable PACHECO ALVAREZ, MARINA Unavailable Unavailable GUERLINE ALVAREZ, JS Smith Unavailable Unavailable HUERTER, JS Unavailable HUERTER, JS Unavailable BC ALVAREZ, CHRISTIAN Lara Unavailable Unavailable HUERTLEROY, JS Unavailable HUERTER, JS Unavailable HUERTER, JS Unavailable HUERTER, JS Unavailable HUERTER, JS Unavailable HUERTER, JS Unavailable HUERTER, JS Unavailable HUERTER, JS Unavailable HUERTER, JS Unavailable HUERTER, JS Unavailable HUERTER, JS Unavailable HUERTER, JS Unavailable HUERTER, JS Unavailable TERRI ALVAREZ, OCTAVIO Ya Unavailable Unavailable Unavailable Unavailable Unavailable Unavailable Unavailable Unavailable Unavailable Unavailable Unavailable Unavailable Allergies Normalized Allergy Reported Date of Reaction(s) Care Provider Facility Allergy Type classification allergen Allergy Onset MA (11 Unclassified NKANo Known 07-25-2007 - no information UNIQUE [facility] Via sources.) Allergies [facility] (19568) Medications Medication Ingredient Drug Dose Dates Status Sig Sig Care Class(es) (Normalized) (Original) Provid er busPIRone busPIRone no 10 mg 07-12-20 Active no BusPIRo ne no hydrochlori Translation information 18 information HCl 10 mg name de 10 mg s: [ Orally Twice oral tablet BusPIRone a day 1 (1 source.) HCl 10 mg] tablet 12h 06 Jul, 2018 Active no Levemir no 20 07-24-20 Active inject 20 Levemir no information Flexpen 100 information [IU] 14 [IU] by Flexpen 100 name (1 source.) unit/mL (3 subcutaneous unit/mL (3 mL) injection mL) 20 Units once daily by at bedtime, Subcutaneous then inject route 1 time 100 [IU] by per day at subcutaneous bedtime 18 injection Jul, 2014 Active predniSONE predniSONE no 20 mg 03-22-20 Active take 1 Predn iSONE no 20 mg oral Translation information 13 tablet by 20 mg 1 name tablet (1 s: [ mouth twice tablet by source.) PredniSONE daily Oral route 2 20 mg] times per day for 5 day(s) p c March, Active no ProAir HFA no 2 01-30-20 Active take 2 ProAir HF A no information 90 information puff(s 15 puff(s) by 90 n brandyn (1 source.) mcg/actuati ) inhalation mcg/actuatio on every four n 2 puffs by hours as Inhalation needed route every 4 hours PRN Jan, Active no Qvar 40 no 2 01-30-20 Active take 2 Qvar 40 no information mcg/actuati information puff(s 15 puff(s) by mcg/ actuatio name (1 source.) on ) inhalation n 2 Puffs by twice daily Inhalation route 2 times per day Jan, Active no Symbicort no 2 12-31-19 Active take 2 Symbicort no information 160-4.5 information puff(s 14 puff(s) by 160-4.5 name (1 source.) mcg/actuati ) inhalation mcg/actuatio on twice daily n inhale 2 in the puffs by morning inhalation route 2 times per day in the morning and evening Dec, Active Problems Active Problems Problem Normalized Date Last Normalized Normalized Provider Fa cility Classification Problem(s) Recorded Problem Problem Sta tus Duration Jyotsna-; endo-; Cardiomyopathy Chronic Active JS CUNHA [facility] Via and , unspecified , [facility] myocarditis; Translations: Hospital - cardiomyopathy [ DILATED [place] (except that CARDIOMYOPATHY (99730) caused by , PRIM tuberculosis CARDIOMYOPATHY or sexually NEC] transmitted disease) (19 sources.) Other Degenerative [facility] and disease of Rochelle YANCEY degenerative nervous [facility] conditions (2 unspecified (25162) sources.) Other Disorder of Chronic Active JS CUNHA [facility] Vi a circulatory arteries and , [facility] disease (2 arterioles, Hospital - sources.) unspecified [place] (70868) Other Lipodystrophy, Chronic Active ALI SANGITA , [facility] Via nutritional; not elsewhere MD ABRAHAM [facility] endocrine; and classified Hospital - metabolic [place] disorders (5 (79917) sources.) Other skin Nail dystrophy Episodic Active JS CADENER Co mmunity disorders (11 Translations: [facility] sources.) [ - [place] dystrophy [place] (30773) L60.3] Substance-rela Nicotine Chronic Active JS KELLYERTER [facility] Via topher disorders dependence, , [facility] (6 sources.) cigarettes, Hospital - uncomplicated [place] Translations: (58609) [ TOBACCO USE DISORDER] Heart valve Nonrheumatic Chronic Active ALI SANGITA , [facility] Via disorders (2 mitral (valve) MD ABRAHAM [facility] sources.) insufficiency [facility] (43031) Pulmonary Other chronic Chronic Active JS KELLYERTER [facility] Via heart disease pulmonary , [facility] (2 sources.) heart diseases [facility] (88251) 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) , [facility] disorders (2 Hospital - sources.) [place] (35760) Conduction Presence of Chronic Active JS NEGRETEER [facility] V ia disorders (8 automatic , [facility] sources.) (implantable) Hospital - cardiac [place] defibrillator (79058) Translations: [ PRESENCE OF CARDIAC PACEMAKER, AUTO IMPLANTABLE CARDIAC DEFIBRILLATOR I, FITTING AND ADJUSTMENT OF CARDIAC PACEMA] Disorders of Pure Chronic Active JS MENDOZAERTER [facility] Vi a lipid hypercholester , [facility] metabolism ([facility] - sources.) Translations: [place] [ (57912) HYPERLIPIDEMIA , UNSPECIFIED, PURE HYPERCHOLESTER OLEM, HYPERLIPIDEMIA , UNSPECIFIED] Past or Other Problems Problem Normalized Date Last Normalized Normalized Provider Fa cility Classification Problem(s) Recorded Problem Problem Sta tus Duration Respiratory Acute Episodic Completed JS CUNHA [facility] Via failure; respiratory [facility] insufficiency; failure Hospital - arrest (adult) [place] (2 sources.) (05418) Deficiency and Anemia, Episodic Completed JS MENDOZAERTER [facility] Via other anemia unspecified , MD [facility] (2 sources.) [facility] (80075) External Fall from no information no information CHRISTIAN No t Available Injury - Fall non-moving BC , (45334) (1 source.) MD nathalia initial encounter External cause Fall from Episodic Completed [facility]RI[facility]IAN [facility] Via codes: Fall (1 non-moving Rochelle YANCEY source.) MD nathalia Hospital - initial [place] encounter (05298) Fluid and Hypopotassemia Episodic Completed JS MENDOZAERTER [facility] Via electrolyte , MD [facility] disorders (2 Hospital - sources.) [place] (84989) Other Hypotension, Episodic Completed JS HUERTER [facility] V ia circulatory unspecified , [facility] disease (2 Hospital - sources.) [place] (45550) Other Long-term Episodic Completed JS HUERTER [facility] Via aftercare (2 (current) use , MD [facility] sources.) of insulin Hospital - [place] (61110) External Other external no information no information CHRISTIAN Not Available Injury - cause status BC , (32669) Unspecified (1 MD source.) External cause Other external Episodic Completed [facility]IAN [facility] Via codes: cause status Rochelle YANCEY Unspecified (1 Hospital - source.) [place] (71123) Residual Personal Episodic Completed JS HUERTER [facility] Via codes; history of , MD [facility] unclassified noncompliance Hospital - (6 sources.) with medical [place] treatment, (83524) presenting hazards to health Translations: [ - Localized edema R60.0, - Localized edema R60.0] Screening or Personal Episodic Completed HALEY ODGERS Not Av ailable history of history of , (74190) mental health tobacco use and substance abuse (1 source.) Pneumonia (1 Pneumonia, Episodic Completed LITZY BLACK , DO Not Available source.) organism (81103) unspecified NEGATED Shortness of Episodic Completed HALEY ODGERS Not A vailable no breath , (38672) information (2 sources.) Other diseases Unspecified Episodic Completed JS HUERTER [facility] Via of kidney and disorder of , [facility] ureters (2 kidney and Hospital - sources.) ureter [place] (52220) External Unspecified no information no information CHRISTIAN Not Available Injury - Place place in [facility] , (04305) of occurrence unspecified (1 source.) [facility] ([facility]) residence as the place of occurrence of the external cause External cause Unspecified Episodic Completed CHRISTIAN [facility] V ia codes: Place place in [facility] of occurrence unspecified [facility] - (1 source.) [facility] (99141) residence as the place of occurrence of the external cause Procedures Procedure Normalized Procedure Procedure Result Performer Facility Date 04-18-2012 Collection venous no information no name [facility] blood venipuncture [facility] ([id number]) 04-18-2012 Comprehensive no information no name [facility] metabolic panel [facility] ([id number]) 03-25-2014 CONTINUOUS INVASIVE no information no name [facility] Via [facility] CONTINUOUS INVASIVE no information no name Not Availa ble (69325) MECHANICAL VENTILATI 08-01-2018 [facility] visit, estab pt no information no name Co [facility] (38263) 07-12-2018 [facility] visit, estab pt no information no name Co [facility] (17870) 08-27-2018 [facility] visit, IPPE or no information no name [facility] AWV [facility] (60178) 07-12-2018 Hemoglobin no information no name [facility] glycosylated a1c [facility] (36306) 12-23-2013 Hemoglobin no information no name [facility] glycosylated a1c [facility] (15348) 04-18-2012 Hemoglobin no information no name [facility] glycosylated a1c [facility] (20034) 03-25-2014 Insertion of no information no name [facility] Via ris endotracheal tube [facility] (49024) Insertion of no information no name Not Available ( 46735) endotracheal tube 04-18-2012 Lipid panel no information no [facility] (46806[facility] Immunizations Normalized Immunization Date Notes Care Provider Facili ty Immunization influenza, 08-27-2018 no information JS CUNHA 99857 [facility] injectable, [place], [place] ([address]) preservative free influenza, seasonal, 09-18-2019 no information no name [facility] injectable [facility] (17349) influenza, seasonal, 08-27-2018 - no information JS CUNHA 41385 [facility] injectable 08-27-2018 [facility] Translations: [ ADMN [place] (45458) FLU VAC NO FEE SCHED SAME DAY, SINGLE IMMUNIZATION ADMIN, IMMUNIZATION ADMIN, EACH ADD (please include units)] pneumococcal 08-27-2018 - no information JS CUNHA 86388 [facility] conjugate vaccine, 08-27-2018 [facility] 13 valent [place] (90658) Translations: [ PCV 13] Results Test Name Value Interpretation Reference Range Date Time Fa cility (Normalized) (Normalized) (Medline Reference) a1c (in house) on null A1C (IN HOUSE) 0856 (no code) [facility] (15130) A1C (IN HOUSE) 01/2020 (no code) [facility] (04890) laboratory on 2020-04-18 Albumin 4.2 g/dL (NEG) 3.4 - 5.4 g/dL 04-18-2020 PENDING LOCATION [Mass/Vol] 12:54-0400 [facility] (72718) ALP [Catalytic 59 U/L (NEG) 44 - 147 U/L 04-18-2020 PEND ING LOCATION activity/Vol] 12:54-0400 [facility] (51758) ALT [Catalytic 20 U/L (NEG) 4 - 40 U/L 04-18-2020 PENDIN G LOCATION activity/Vol] 12:54-0400 [facility] (07986) Anion gap 14 mmol/L (NEG) 3 - 11 mmol/L 04-18-2020 PENDING LOCATION [Moles/Vol] 12:54-0400 [facility] (02061) Anisocytosis Ql SLIGHT (no code) 04-18-2020 PENDING LO CATION (Bld) 12:54-0400 [facility] (87570) AST [Catalytic 21 U/L (NEG) 10 - 34 U/L 04-18-2020 PENDI NG LOCATION activity/Vol] 12:54-0400 [facility] (58633) Band form 0 % (no code) 0 - 3 % 04-18-2020 PENDING LOCA TION neutrophils/100 12:54-0400 [facility] (87673) WBC (Bld) Basophils (Bld) 0.0 10*3/uL (NEG) 0 - 0.3 10*3/uL 04-18-2020 PENDING LOCATION [#/Vol] 12:54-0400 [facility] (12681) Basophils/100 0 % (no code) 0.5 - 1 % 04-18-2020 PENDING LOCATION WBC (Bld) 12:54-0400 [facility] (06724) Bilirubin 0.4 mg/dL (NEG) 0.1 - 1.2 mg/dL [facility]-18-2020 [facility]Vol[facility] 12:54-0400 [facility] (92737) Calcium 9.6 mg/dL (NEG) 8.5 - 10.2 mg/dL 04-18-2020 PENDI NG LOCATION [Mass/Vol] 12:54-0400 [facility] (83736) Calcium 9.4 mg/dL (NEG) 8.5 - 10.2 mg/dL 04-18-2020 PENDI NG LOCATION [Mass/Vol] 12:54-0400 [facility] (46644) Chloride 106 mmol/L (NEG) 95 - 106 mmol/L 04-18-2020 PENDI LOCATION [Moles/Vol] 12:54-0400 [facility] (69269) CO2 [Moles/Vol] 21 mmol/L (NEG) 23 - 29 mmol/L 04-18-2020 P ENDING LOCATION 12:54-0400 [facility] (39299) Creatinine 2.35 mg/dL (H) 04-18-2020 PENDING LOCATI ON [Mass/Vol] 12:54-0400 [facility] (61322) Creatinine and 27 (no code) 04-18-2020 PENDING LOC ATION Glomerular 12:54-0400 [facility] (22804) filtration rate.predicted panel - Serum, Plasma or Blood Eosinophils 0.6 10*3/uL (H) 0.05 - 0.5 04-18-2020 PENDING LOCATION (Bld) [#/Vol] 10*3/uL 12:54-0400 [facility] (25209) Eosinophils/100 4 % (NEG) 1 - 4 % 04-18-2020 [facility] LOCATION WBC (Bld) 12:54-0400 [facility] (94309) Eosinophils/100 9 % (no code) 04-18-2020 PENDING LO CATION WBC (Nose) 12:54-0400 [facility] (11278) Erythrocyte 14.4 % (NEG) 11.6 - 14.6 % 04-18-2020 PENDIN G LOCATION distribution 12:54-0400 [facility] (27482) width (RBC) [Ratio] Glucose 83 mg/dL (NEG) 60 - 125 mg/dL 04-18-2020 PENDING LOCATION [Mass/Vol] 12:54-0400 [facility] (46911) Hematocrit (Bld) 42 % (NEG) 36.1 - 50.3 % 04-18-2020 P ENDING LOCATION [Volume 12:54-0400 [facility] (79329) fraction] Hemoglobin (Bld) 14.1 g/dL (NEG) 12.1 - 17.2 g/dL 04-18-2020 PENDING LOCATION [Mass/Vol] 12:54-0400 [facility] (73665) Lymphocytes 3.0 10*3/uL (NEG) 0.9 - 2.9 04-18-2020 PENDING LOCATION (Bld) [#/Vol] 10*3/uL 12:54-0400 [facility] (74079) Lymphocytes/100 20 % (no code) 20 - 40 % 04-18-2020 PENDIN G LOCATION WBC (Bld) 12:54-0400 [facility] (85076) MCH (RBC) 30 pg (NEG) 27 - 31 pg 04-18-2020 PENDING LOC ATION [Entitic mass] 12:54-0400 [facility] (84761) MCHC (RBC) 33 g/dL (NEG) 32 - 36 g/dL 04-18-2020 PENDING LOCATION [Mass/Vol] 12:54-0400 [facility] (54903) MCV (RBC) 91 (NEG) 04-18-2020 PENDING LOCATI ON [Entitic vol] 12:54-0400 [facility] (68695) Monocytes (Bld) 1.7 10*3/uL (H) 0.3 - 0.9 04-18-2020 PEND ING LOCATION [#/Vol] 10*3/uL 12:54-0400 [facility] (31376) Monocytes/100 11 % (NEG) 2 - 8 % 04-18-2020 PENDING LOCATION WBC (Bld) 12:54-0400 [facility] (92255) Monocytes/100 5 % (no code) 2 - 8 % 04-18-2020 PENDING LOCATION WBC (Bld) 12:54-0400 [facility] (57909) Natriuretic 20.3 pg/mL (no code) 0 - 100 pg/mL 04-18-2020 PENDI NG LOCATION peptide B (Bld) 12:54-0400 [facility] (24612) [Mass/Vol] Neutrophils 9.6 10*3/uL (H) 1.7 - 7 10*3/uL 04-18-2020 [facility] LOCATION (Bld) [#/Vol] 12:54-0400 [facility] (75083) Neutrophils/100 64 % (NEG) 40 - 60 % 04-18-2020 PENDIN G LOCATION WBC (Bld) 12:54-0400 [facility] (30433) Platelet mean 11.5 (H) 04-18-2020 PENDING LOCA TION volume (Bld) 12:54-0400 [facility] (62736) [Entitic vol] Platelets (Bld) 257 10*3/uL (NEG) 150 - 450 04-18-2020 PEND ING LOCATION [#/Vol] 10*3/uL 12:54-0400 [facility] (69486) Potassium 4.6 mmol/L (NEG) 3.7 - 5.2 mmol/L 04-18-2020 PEND ING LOCATION [Moles/Vol] 12:54-0400 [facility] (52208) Protein 7.8 g/dL (NEG) 6.4 - 8.3 g/dL 04-18-2020 PENDING LOCATION [Mass/Vol] 12:54-0400 [facility] (60251) RBC (Bld) 4.66 10*6/uL (NEG) 4.2 - 6.1 04-18-2020 PENDING L OCATION [#/Vol] 10*6/uL 12:54-0400 [facility] (66238) Segmented 58 % (no code) 35 - 80 % 04-18-2020 PENDING LOCA TION neutrophils/100 12:54-0400 [facility] (85652) WBC (Bld) Sodium 141 mmol/L (NEG) 135 - 145 mmol/L 04-18-2020 PEND ING LOCATION [Moles/Vol] 12:54-0400 [facility] (61627) Urea nitrogen 47 mg/dL (H) 7 - 20 mg/dL 04-18-2020 PENDI NG LOCATION [Mass/Vol] 12:54-0400 [facility] (68440) Urea 20 mg/mg (no code) 6 - 22 mg/mg 06-13-2020 PENDING L OCATION nitrogen/Creatin 12:54-0400 [facility] (57521) ine [Mass ratio] Variant 8 % (no code) 0 - 1 % 04-18-2020 PENDING LOCA TION lymphocytes/100 12:54-0400 [facility] (27336) WBC (Bld) WBC (Bld) 14.9 10*3/uL (H) 3.5 - 10.5 04-18-2020 PENDING LOCATION [#/Vol] 10*3/uL 12:54-0400 [facility] (89758) not yet categorized on 2019 Exp date 06/2021 (no code) [facility] (10328) Lot 8.0~7.4~0552 (no code) [facility] (64505) other on 2019-03-21 Exp date 08/2020 (no code) [facility] (12525) Lot 7.4~7.6~0941 (no code) [facility] (53005) other on 2018-07-12 Exp date 01/2020 (no code) [facility] (34068) Lot 7.6~7.5~0856 (no code) [facility] (36752) other on 2017-11-30 Exp date 08/2019 (no code) [facility] (10689) Lot 7.4~7.6~0796 (no code) [facility] (91586) Vital Signs Vital Sign Value Interpretation Reference Date Time Care Prov ider Facility (Normalized) (Normalized) Range BMI (Body Mass 34.55 kg/m2 (no code) 15 - 25 kg/m2 08-27-2018 [facility]) 11:20-0400 15945 [facility] (67232) BMI (Body Mass 34.43 kg/m2 (no code) 15 - 25 kg/m2 08-01-2018 Tee HUTCHINSON [facility]) 14:40-0400 30559 [facility] (85798) BMI (Body Mass 34.42 kg/m2 (no code) 15 - 25 kg/m2 07-12-2018 Felton HILLIARD [facility] Index) 10:200400 36648 [facility] (61171) Body height 175.26 cm (no code) cm 12-23-2013 JS ZUNILDA [facility] 16:100500 36198 [facility] (51873) Body height 175.26 cm (no code) cm 03-22-2013 [facility] 15:070400 75085 [facility] (30102) Body 97.7 [degF] (no code) 97.8 - 99.0 08-27-2018 [facility] Temperature [degF] 11:20-0400 56905 [facility] (75850) Body 98.1 [degF] (no code) 97.8 - 99.0 08-01-2018 ANDRIY MOORE Replaced By [facility] Temperature [degF] 14:40-0400 10204 [facility] (40013) Body 98.4 [degF] (no code) 97.8 - 99.0 07-12-2018 [facility] Temperature [degF] 10:20-0400 97796 [facility] (15262) Body 97.3 [degF] (no code) 97.8 - 99.0 06-17-2014 JS [facility] Temperature [degF] 11:58-0400 77464 [facility] (21655) Body 98 [degF] (no code) 97.8 - 99.0 12-23-2013 [facility] [[facility] 16:100500 24826 [facility] (64073) Body 98.4 [degF] (no code) 97.8 - 99.0 03-22-2013 [facility] temperature [degF] 15:070400 89480 [facility] (42355) Body weight 90.22 kg (no code) kg 06-17-2014 [facility] 11:58-[address] [place] [address] (08735) Body weight 93.9 kg (no code) kg 12-23-2013 [facility] 16:100500 [address] [place] [address] (60599) Body weight 99.54 kg (no code) kg 03-22-2013 [facility] 15:070400 [address] [place] [address] (88376) Height 175.26 cm (no code) cm 08-27-2018 [facility] 11:200400 [address] [place] [address] (76711) Height 175.26 cm (no code) cm 08-01-2018 [facility] 14:400400 [address] [place] [address] (44920) Height 175.26 cm (no code) cm 07-12-2018 [facility] 10:200400 [address] [place] [address] (68572) Height 175.26 cm (no code) cm 06-17-2014 [facility] 11:580400 [address] [place] [address] (32710) Pulse Oximetry 0 % (no code) 95 - 100 % 08-01-2018 [facility] 14:400400 [address] [place] [address] (18869) Weight 106.14 kg (no code) kg 08-27-2018 [facility] 11:200400 [address] [place] [address] (43664) Weight 105.78 kg (no code) kg 08-01-2018 [facility] 14:400400 [address] [place] [address] (18490) Weight 105.73 kg (no code) kg 07-12-2018 [facility] 10:200400 [address] [place] [address] (53378) Interventions No Information Plan of Treatment The data below is from unstructured sources Discharge Date 03/30/16 6:35pm Disposition 01 HOME, SELF-CARE Condition at Discharge Improved Instructions/Education Provided Cont usions in Adults (ED) Prescriptions See Medication Section Referrals JS CUNHA MD - [facility] Physician Additional Instructions/Education Yo u may take Tylenol and/or ibuprofen for pain. Return to care if symptoms worsen. All discharge instructions reviewed with patient and/or family. Voiced understanding. Discharge Date 12/07/15 3:50pm Disposition 01 HOME, SELF-CARE Instructions/Education Provided CHF Basic Carbohydrate Counting (DC) Prescriptions See Medication Section Referrals KAMILLA PEREZ MD [facility] CC DS (Unspecified) - 12/16/15 Address: [address] [place] [address] & [place] [phone] Reason(s) for Referral: You are scheduled for a follow up appointment with Dr. Perez on Dec 16 at 220 pm (Unspecified) - Reason(s) for Referral: Acute hypoxemic respiratory failure JS CUNHA MD (Unspecified) - 12/11/15 Address: [address] [place] [id number] Reason(s) for Referral: You are scheduled for a follow up appointment with Dr. Cunha on Dec 11 at 330 pm Additional Instructions/Education Pl ease follow up with Tiffany Paul at [facility], there is a diabetes class on Dec 30 from 0 please attend. Care Plan and Goals See Discharge In structions Section Discharge Date 12/07/15 3:50pm Disposition 09 ADMITTED INPATIENT Instructions/Education Provided CHF Basic Carbohydrate Counting (DC) Prescriptions See Medication Section Referrals KAMILLA PEREZ MD [facility] CC DS (Unspecified) - 12/16/15 Address: [address] [place] [address] & [place] [address] Reason(s) for Referral: You are scheduled for a follow up appointment with Dr. Perez on Dec 16 at 220 pm (Unspecified) - Reason(s) for Referral: Acute hypoxemic respiratory failure JS CUNHA MD (Unspecified) - 12/11/15 Address: [address] [place] [id number] Reason(s) for Referral: You are scheduled for a follow up appointment with Dr. Cunha on Dec 11 at 330 pm Additional Instructions/Education Pl ease follow up with Tiffany Paul at [facility], there is a diabetes class on Dec 24 from 1230 please attend. Care Plan and Goals See Discharge In structions Section Activity Details Follow Up 3 Months Reason: Activity Details Follow Up 4 Months Reason: Activity Details Follow Up 4 Weeks Reason: Activity Details Follow Up prn Reason:redness, worsen ing pain, fever Activity Details Follow Up 1 Year Reason:Medicare AWV Subsequent Goals No Information Social History The data below is from unstructured sources History Response Recorde d Date/Time Hx Family Cancer N 10/25 11:43pm History Response Recorde d Date/Time Alcohol Use Past History 03/13/13 2:30am Recreational Drug Use N 03/13/13 2:30am History Response Recorde d Date/Time Hx Family Cancer N 10/25 11:43pm Hx Family Cardiac Disorders Y 10/25/11 11:43pm Hx Family Stroke Y 10/25 11:43pm Hx Family Hypertension N 10/25/11 11:43pm Hx Family Myocardial Infarction Y 10/25/11 11:43pm History Response Recorde d Date/Time Alcohol Use Past History 06/21/13 5:49am Recreational Drug Use N 06/21/13 5:49am Functional Status The data below is from unstructured sources Query Response Date Rodolfo rded Patient Orientation Person Place Time Situation Normal For Age December 07, 2015 4:25pm Comprehension Ability Understands Co ncepts December 05, 2015 8:00pm Query Response Date Rodolfo rded Comprehension Ability Understands Co ncepts February 17, 2015 4:00pm Mental Status No Information Encounters Encounter Normalized Encounter Encounter Diagnosis Care Provi ita Organization Date Type 08-27-2018 Annual wellness visit Encounter for general JS LOPES (no [facility] [place] adult medical phone) (no phone) examination without abnormal findings 01-14-2020 [facility] [place] Onychogryphosis FLORY YATES (no [facility] [place] phone) (no phone) 04-18-2020 Emergency department no information OCTAVIO ERAZO MD [facility] patient visit (no phone) [facility] (no phone) 03-30-2016 Emergency department no information no name no organization name - patient visit 03-30-2016 03-25-2014 Evaluation and no information no name no organ ization name - management of 03-29-2014 inpatient 03-25-2014 Evaluation and no information no name no organ ization name - management of 03-29-2014 inpatient 07-12-2018 Patient encounter no information no name no or ganization name 03-12-2018 Patient encounter no information no name no or ganization name 01-11-2018 Patient encounter no information no name no or ganization name 11-30-2017 Patient encounter no information no name no or ganization name 04-19-2017 Patient encounter no information no name no or ganization name 04-13-2017 Patient encounter no information no name no or ganization name 02-17-2015 Patient encounter no information no name no or ganization name - 02-17-2015 03-11-2013 Patient encounter no information no name no or ganization name Patient encounter no information no name no organizat ion name 11-05-2019 Patient encounter no information no name no or ganization name procedure 2019 Patient encounter no information no name no or ganization name procedure 07-02-2019 Patient encounter no information no name no or ganization name procedure 07-02-2019 Patient encounter no information no name no or ganization name procedure 05-27-2019 Patient encounter no information no name no or ganization name procedure 04-30-2019 Patient encounter no information no name no or ganization name procedure 04-09-2019 Patient encounter no information no name no or ganization name procedure 03-21-2019 Patient encounter no information no name no or ganization name procedure 03-19-2019 Patient encounter no information no name no or ganization name procedure 01-11-2018 Patient encounter no information no name no or ganization name procedure 08-27-2018 [facility], initial visit no information no name no organization name 01-22-2020 Telephone encounter no information JS CUNHA (n o [facility] [place] phone) (no phone) 01-21-2020 Telephone encounter Anxiety disorder, JS CUNHA (no [facility] unspecified phone) (no phone) no information Other specified no name no organizatio n name pre-operative examination no information Pre-procedural no name no organization name laboratory examination Medical Equipment Equipment Code (if Equipment Original Equipment Identifier P rocedure Code (if Dates provided) Text (if provided) (if provided) provided) no information 1 pen needle no information (no no information 02-27-2017 named assigning authority) no information 1 pen needle no information (no no information 02-27-2017 named assigning authority) Payers The data below is from unstructured sources Payer Name Policy Number Subscriber Name Relationship Enter Insurance Name [id number] Scales,Carroll 01 Self / Same As Patient Wps Medicare [id number] Scales,Carroll D 01 Self / Same As Patient Payer Name Policy Number Subscriber Name Relationship Enter Insurance Name [id number] Scales,Carroll D 01 Self / Same As Patient Wps Medicare [id number] Scales,Carroll D 01 Self / Same As Patient Summary Purpose eClinicalWorks SubmissioneClinicalWorks SubmissioneClinicalWorks SubmissioneClinicalWorks SubmissioneClinicalWorks SubmissioneClinicalWorks SubmissioneClinicalWorks SubmissioneClinicalWorks SubmissioneClinicalWorks SubmissioneClinicalWorks SubmissioneClinicalWorks SubmissioneClinicalWorks SubmissioneClinicalWorks SubmissioneClinicalWorks Submission Advance Directives Directive Response Recor ded Date/Time Advance Directives No 4:36pm Health Care [employer] Field Service Technician No 03/30/16 4:36pm Organ Donor No 03/30/16 4:36pm Resuscitation Status Full Code 03/30/16 4:36pm Directive Response Recor ded Date/Time Advance Directives No 1:11am Health Care [employer] Field Service Technician No 12/05/15 1:11am Organ Donor No 12/05/15 1:11am Resuscitation Status Full Code 12/05/15 1:11am Directive Response Recor ded Date/Time Advance Directives No 6:58am Health Care [employer] of [employer] Field Service Technician No 02/17/15 6:58am Organ Donor No 02/17/15 6:58am Resuscitation Status Full Code 02/17/15 6:58am Directive Response Recor ded Date Advance Directives N 06/18 12:31am Health Care [employer] Field Service Technician N 03/13/13 12:31am Organ Donor N 03/13/13 1 2:31am Directive Response Recor ded Date Advance Directives N 5:49am Health Care [employer] Field Service Technician N 06/21/13 5:49am Organ Donor N 06/21/13 5 :49am Discharge Instructions No hospital discharge instructions. Patient Instructions Physician Instructions Patient Instructions Stop Taking Metformin, potassium and Diclofenac. Goal/Follow Up Appt: Follow up with Dr. Cunha in 1 week. Follow up with Dr. Perez as directed Make appointment with Tiffany Paul with diabetic education about diabetic diet at [facility]. Patient Instructions: Weigh yourself daily in the morning. If you gain 2-3 pounds overnight you will most likely need to cut back on the fluid you drink that day. Discharge Diet: ADA Diet, Low Fat/Low Cholesterol, Other Diet (Fluid restriction to 1800ml of fluid daily) Activity as Tolerated: Yes Care Plan Patient Instructions:: Weigh yourself daily in the morning. If you gain 2-3 pounds overnight youwill most likely need to cut back on the fluid you drink that day. Goal:: Follow up with Dr. Cunha in 1 week. Follow up with Dr. Perez as directedMake appointment with Tiffany Paul with diabetic education about diabetic diet at [facility]. Patient Instructions Physician Instructions Patient Instructions Stop Taking Metformin, potassium and Diclofenac. Goal/Follow Up Appt: Follow up with Dr. Cunha in 1 week. Follow up with Dr. Perez as directed Make appointment with Tiffany Paul with diabetic education about diabetic diet at [facility]. Patient Instructions: Weigh yourself daily in the morning. If you gain 2-3 pounds overnight you will most likely need to cut back on the fluid you drink that day. Discharge Diet: ADA Diet, Low Fat/Low Cholesterol, Other Diet (Fluid restriction to 1800ml of fluid daily) Activity as Tolerated: Yes Care Plan Patient Instructions:: Weigh yourself daily in the morning. If you gain 2-3 pounds overnight youwill most likely need to cut back on the fluid you drink that day. Goal:: Follow up with Dr. Cunha in 1 week. Follow up with Dr. Perez as directedMake appointment with Tiffany Paul with diabetic education about diabetic diet at [facility]. No hospital discharge instructions. Additional Source Comments This clinical document has been generated using [employer] software that has been certified by the Office of the National Coordinator for Health Information Technology (ONC 15.99.04.3023.[id number].[id number]) and the National Committee for [employer] (NCQA, as an eMeasure certified technology). FOR RECORDS PERTAINING TO PATIENTS WHO ARE OR HAVE BEEN ENROLLED IN A CHEMICAL D EPENDENCY/SUBSTANCE ABUSE PROGRAM, SOME INFORMATION MAY BE OMITTED. This clinica l summary was aggregated from multiple sources. Caution should be exercised in using it in the provision of clinical care. This summary normalizes information from multiple sources, and as a consequence, information in this document may ma terially change the coding, format and clinical context of patient data. In ashly tion, data may be omitted in some cases. CLINICAL DECISIONS SHOULD BE BASED ON T HE PRIMARY CLINICAL RECORDS. [employer] provides no warranty or guara ntee of the accuracy or completeness of information in this document.The followi ng information is based on time limited clinical information UNRECOGNIZED CONTENT PROVIDED BELOW FOR UNRECOGNIZED SECTION MEDICAL (GENERAL) HISTORY Type Description Date Medical History chronic obstructive pulmonary disease (COPD) Medical History diabetes mellitus Medical History Hypertension Medical History Hyperlipidemia Medical History Stroke syndrome 2006 Surgical History Left leg amputation 1998 Surgical History Cardiothoracic surg km Defibrillator 2006 Hospitalization History surgeries UNRECOGNIZED CONTENT PROVIDED BELOW FOR UNRECOGNIZED SECTION REASON FOR VISIT Swelling to right foot, +1 pitting edema. CAROLINE Cheung, C/O anxiety in the afterno on until bedtime. Requests return callPain (acute) Leg-PATTI velasquez, patient comp lains of a spot on his right legMedicare [id number]
--- OUTSIDE RECORDS SUMMARY | 2020-04-18 19:32 | XMS REPORT ---
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 603619316 Problem Chronic systolic (congestive) heart failure I50.22 Active 987306441 Problem Essential hypertension I10 Active 45458865 Problem Anxiety F41.9 Active 38884880 Problem Amputated left leg Z89.612 Active 1 [id number] Problem Phantom limb pain G54.6 Active 57 [id number] Problem Diabetes E11.9 Active 585568012 ALLERGIES No Information ENCOUNTERS Encounter Location Date Diagnosis [facility] [address] [facility] [id number] [address] [place] [address] 18 Jan, [id number] [place] [address] 17 Jan, 2020 Anxiety F41.9 [facility] [address] [facility] [id number] [address] [place] [address] 10 Jan, 2020 Nail hypertrophy L60.2 ; 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 ; Onychomycosis B35.1 and Self-care deficit for grooming and hygiene Z74.1 [place] [address] [place] [id number] [address] [place] [address] 25 Dec, 2019 Type 2 diabetes mellitus wit h diabetic nephropathy E11.21 ; Phantom limb pain G54.6 ; Chronic kidney disease, stage IV (severe) N18.4 ; Secondary hyperparathyroidism of renal origin N25.81 ; Chronic systolic (congestive) heart failure I50.22 and Peripheral vascular disease, unspecified I73.9 [place] [address] [place] [id number] [place] [address] 17 Dec, 2019 [place] [address] [place] [id number] [place] [address] Dec, [place] [address] [place] [id number] [place] [address] Oct, Nail hypertrophy L60.2 and O nychomycosis B35.1 [place] [address] [place] [id number] [place] [address] Sep, Diabetes E11.9 ; Anxiety F41 .9 and Phantom limb pain G54.6 [place] [address] [place] [id number] [address] [place] [address] Sep, [place] [address] [place] [id number] [place] [address] Sep, [place] [address] [place] [id number] [address] [place] [address] Aug, Diarrhea, unspecified type R 19.7 [facility] [address] [place] [id number] [address] [place] [address] Aug, [facility] [address] [place] [id number] [address] [place] [address] Aug, [place] [address] [place] [id number] [address] [place] [address] Jul, Anxiety F41.9 [place] [address] [place] [id number] [address] [place] [address] May, Phantom limb pain G54.6 and Amputated left leg Z89.612 [facility] [address] [id number] [address] [place] [address] Apr, Phantom limb pain G54.6 [facility] [address] [id number] [address] [place] [address] Apr, [facility] [address] [facility] [id number] [address] [place] [address] Apr, [facility] [address] [facility] [id number] [address] [place] [address] Apr, Nail hypertrophy L60.2 and S elf-care deficit for grooming and hygiene Z74.1 [place] [address] [facility] [id number] [address] [place] [address] March, Type 2 diabetes mellitus wit h diabetic nephropathy E11.21 ; Chronic kidney disease, stage IV (severe) N18.4 ; Anxiety F41.9 and Amputated left leg Z89.612 [facility] [address] [facility] [id number] [address] [place] [address] March, Anxiety F41.9 and Transient weakness of right lower extremity R29.898 [place] [id number] [facility] [id number] [address] [place] [address] March, [facility] [address] [facility] [id number] [address] [place] [address] March, [facility] [address] [facility] [id number] [address] [place] [address] Feb, [facility] [address] [facility] [id number] [address] [place] [address] Aug, Anxiety F41.9 [facility] [address] [facility] [id number] [address] [place] [address] Aug, Medicare annual wellness vis it, initial Z00.00 ; Encounter for immunization Z23 ; Coronary disease I25.10 ; Type 2 diabetes mellitus with diabetic nephropathy E11.21 ; Chronic kidney disease, stage IV (severe) N18.4 ; Secondary hyperparathyroidism of renal origin N25.81 ; Anxiety F41.9 and Gastroesophageal reflux disease, esophagitis presence not specified K21.9 [facility] [address] [place] [id number] [address] [place] [address] Jul, Friction blister of right lo wer extremity, initial encounter S80.821A [place] [address] [address] Jul, Localized edema R60.0 ; Type 2 diabetes mellitus with diabetic nephropathy E11.21 ; Coronary disease I25.10 and Anxiety F41.9 [place] [address] [address] Jun, [place] [address] [address] March, Type 2 diabetes mellitus wit h diabetic nephropathy E11.21 ; 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 ; Chronic kidney disease, stage IV (severe) N18.4 ; Secondary hyperparathyroidism of renal origin N25.81 ; Coronary disease I25.10 and Gastroesophageal reflux disease, esophagitis presence not specified K21.9 [place] [address] [address] Nov, Type 2 diabetes mellitus wit hout complications E11.9 ; Coronary disease I25.10 and Essential hypertension I10 [place] [id number] [place] [address] May, Diabetes E11.9 [place] [address] [place] [id number] [address] [place] [address] Apr, Type 2 diabetes mellitus wit hout complications E11.9 and Arthritis M19.90 [place] [address] [place] [id number] [address] [place] [address] March, Diabetes E11.9 [place] [address] [place] [id number] [address] [place] [address] March, Diabetes E11.9 [place] [address] [place] [id number] [address] [place] [address] March, [facility] [address] [id number] [address] [place] [address] Feb, Diabetes E11.9 [facility] [address] [id number] [address] [place] [address] Feb, Diabetes E11.9 [facility] [address] [id number] [address] [place] [address] Jan, [facility] [address] [id number] [address] [place] [address] Jan, Diabetes E11.9 [facility] [address] [id number] [address] [place] [address] Jan, Type 2 diabetes mellitus wit hout complications E11.9 [facility] [address] [id number] [address] [place] [address] Oct, [facility] [address] [id number] [address] [place] [address] Oct, Gastroesophageal reflux dise ase, esophagitis presence not specified K21.9 [facility] [address] [id number] [address] [place] [address] Sep, [facility] [address] [facility] [id number] [address] [place] [address] Sep, [facility] [address] [id number] [address] [place] [address] Sep, [facility] [address] [id number] [address] [place] [address] Aug, [facility] [address] [facility] [id number] [address] [place] [address] Aug, Diabetes E11.9 and Encounter for immunization Z23 [facility] [address] [id number] [address] [place] [address] Aug, [facility] [address] [id number] [address] [place] [address], [place] [address] 08 Jul, 2016 [facility] [address] [id number] [address] [place] [address], [place] [address] Jun, [facility] [address] [id number] [address] [place] [address], [place] [address] May, Diabetes E11.9 [facility] [address] [id number] [address] [place] [address], [place] [address] Apr, [facility] [address] [id number] [address] [place] [address], [place] [address] Apr, [facility] [address] [id number] [address] [place] [address], [place] [address] March, [facility] [address] [id number] [address] [place] [address], [place] [address] March, [facility] [address] [id number] [address] [place] [address], [place] [address] Feb, [facility] [address] [id number] [address] [place] [address], [place] [address] Feb, [facility] [address] [id number] [address] [place] [address], [place] [address] 18 Feb, 2016 [facility] [address] [id number] [address] [place] [address] 14 Feb, 2016 [facility] [address] [id number] [address] [place] [address], [place] [address] Feb, [facility] [address] [id number] [address] [place] [address], [place] [address] Feb, Type 2 diabetes mellitus wit hout complications E11.9 [facility] [address] [id number] [address] [place] [address], [place] [address] 08 Feb, 2016 [facility] [address] [id number] [address] [place] [address], [place] [address] Jan, [facility] [address] [id number] [address] [place] [address] Dec, Eustachian tube dysfunction H69.80 and Diabetes E11.9 [facility] [address] [facility] [id number] [address] [place] [address] Dec, [facility] [address] [facility] [id number] [address] [place] [address] Dec, [facility] [address] [address] Dec, Type 2 diabetes mellitus wit hout complications E11.9 ; Atherosclerotic heart disease of [place] coronary artery without angina pectoris I25.10 and Diabetes E11.9 [facility] [address] [facility] [id number] [address] Dec, [facility] [address] [address] Dec, CHF (congestive heart failur e) I50.9 [facility] [address] [place] [id number] [address] [place] [address] Nov, Diabetes E11.9 and Coronary disease I25.10 [facility] [address] [place] [id number] [address] [place] [address] Oct, [facility] [address] [place] [id number] [address] [place] [address] Aug, [facility] [address] [place] [id number] [address] [place] [address] Jul, [facility] [address] [place] [id number] [address] [place] [address] 08 Jul, 2015 DM w/o complication type II 250.00 and Spontaneous bleeding of digits 459.0 [facility] [address] [place] [id number] [address] [place] [address] Apr, [facility] [address] [place] [id number] [address] [place] [address] Apr, [facility] [address] [place] [id number] [address] [place] [address] March, CHF (congestive heart failur e) 428.0 and Coronary atherosclerosis of unspecified type of vessel, [place] or graft 414.00 [facility] [address] [id number] [address] [place] [address] March, [facility] [address] [id number] [address] [place] [address] Feb, [facility] [address] [id number] [address] [place] [address] Feb, [facility] [address] [id number] [address] [place] [address] Jan, [facility] [address] [id number] [address] [place] [address] Jan, [facility] [address] [id number] [address] [place] [address] Dec, [facility] [address] [id number] [address] [place] [address] Dec, [facility] [address] [id number] [address] [place] [address] Dec, [facility] [address] [id number] [address] [place] [address] Dec, [facility] [address] [id number] [address] [place] [address] Dec, [facility] [address] [id number] [address] [place] [address] Dec, [facility] [address] [id number] [address] [place] [address] Nov, [facility] [address] [id number] [address] [place] [address] Nov, [facility] [address] [id number] [address] [place] [address] Oct, [facility] [place] [facility] [address] [id number] [address] [place] [address], [place] [address] Sep, [facility] [place] [address] [id number] [address] [place] [address], [place] [address] Sep, [facility] [place] [facility] [address] [id number] [address] [place] [address], [place] [address] Sep, [facility] [place] [facility] [address] [id number] [address] [place] [address], [place] [address] Sep, [facility] [place] [facility] [address] [id number] [address] [place] [address], [place] [address] Jul, [facility] [place] [facility] [address] [id number] [address] [place] [address], [place] [address] Jul, [facility] [place] [address] [id number] [address] [place] [address], [place] [address] Jul, [facility] [address] [id number] [address] [place] [address], [place] [address] Jul, [facility] [place] [address] [id number] [address] [place] [address], [place] [address] Jun, [facility] [address] [id number] [address] [place] [address], [place] [address] Jun, [facility] [place] [address] [id number] [address] [place] [address], [place] [address] Jun, [facility] [place] [address] [id number] [address] [place] [address], [place] [address] Jun, [facility] [address] [id number] [address] [place] [address], [place] [address] Apr, [facility] [address] [id number] [address] [place] [address], [place] [address] Apr, [facility] [address] [id number] [address] [place] [address], [place] [address] Apr, [facility] [address] [id number] [address] [place] [address], [place] [address] Apr, [facility] [address] [id number] [address] [place] [address], [place] [address] Dec, [facility] [address] [id number] [address] [place] [address], [place] [address] Dec, [facility] [address] [id number] [address] [place] [address], [place] [address] Dec, [facility] [address] [id number] [address] [place] [address], [place] [address] Dec, [facility] [address] [id number] [address] [place] [address], [place] [address] Dec, [facility] [address] [id number] [address] [place] [address], [place] [address] Dec, [facility] [address] [id number] [address] [place] [address], [place] [address] Nov, [facility] [address] [id number] [address] [place] [address], [place] [address] Nov, [facility] [address] [id number] [address] [place] [address], [place] [address] Sep, [facility] [address] [id number] [address] [place] [address], [place] [address] Sep, [facility] [address] [id number] [address] [place] [address], [place] [address] Sep, [facility] [address] [id number] [address] [place] [address], [place] [address] Sep, [facility] [address] [id number] [address] [place] [address], [place] [address] Sep, [facility] [address] [id number] [address] [place] [address], [place] [address] Aug, [facility] [address] [id number] [address] [place] [address], [place] [address] Aug, [facility] [address] [id number] [address] [place] [address], [place] [address] Aug, [facility] [address] [id number] [address] [place] [address], [place] [address] Aug, [facility] [address] [id number] [address] [place] [address], [place] [address] Jul, [facility] [address] [id number] [address] [place] [address], [place] [address] Jun, [facility] [address] [id number] [address] [place] [address], [place] [address] May, [facility] [address] [id number] [address] [place] [address], [place] [address] May, [facility] [address] [id number] [address] [place] [address], [place] [address] May, [facility] [address] [id number] [address] [place] [address], [place] [address] Apr, [facility] [address] [id number] [address] [place] [address], [place] [address] Apr, [facility] [address] [id number] [address] [place] [address], [place] [address] March, [facility] [address] [id number] [address] [place] [address], [place] [address] March, [facility] [address] [id number] [address] [place] [address], [place] [address] 18 Feb, 2013 [facility] [address] [id number] [address] [place] [address], [place] [address] 15 Feb, 2013 [facility] [address] [id number] [address] [place] [address], [place] [address] Feb, [facility] [address] [id number] [address] [place] [address], [place] [address] Jan, [facility] [address] [id number] [address] [place] [address], [place] [address] Jan, [facility] [address] [id number] [address] [place] [address], [place] [address] Jan, [facility] [address] [id number] [address] [place] [address], [place] [address] Dec, [facility] [address] [id number] [address] [place] [address], [place] [address] Dec, [facility] [address] [id number] [address] [place] [address], [place] [address] Dec, [facility] [address] [id number] [address] [place] [address], [place] [address] Nov, [facility] [address] [id number] [address] [place] [address], [place] [address] Nov, [facility] [address] [id number] [address] [place] [address], [place] [address] Nov, [facility] [address] [id number] [address] [place] [address], [place] [address] Nov, [facility] [address] [id number] [address] [place] [address], [place] [address] Nov, [facility] [address] [id number] [address] [place] [address], [place] [address] Nov, [facility] [address] [id number] [address] [place] [address], [place] [address] Oct, [facility] [address] [id number] [address] [place] [address], [place] [address] Oct, [facility] [address] [id number] [address] [place] [address], [place] [address] Oct, [facility] [address] [id number] [address] [place] [address], [place] [address] Oct, [facility] [address] [id number] [address] [place] [address], [place] [address] Sep, [facility] [address] [id number] [address] [place] [address], [place] [address] Sep, [facility] [address] [id number] [address] [place] [address], [place] [address] Sep, [facility] [address] [id number] [address] [place] [address], [place] [address] Sep, [facility] [address] [id number] [address] [place] [address], [place] [address] Aug, [facility] [address] [id number] [address] [place] [address], [place] [address] 24 Jul, 2012 [facility] [address] [id number] [address] [place] [address], [place] [address] Jul, [facility] [address] [id number] [address] [place] [address], [place] [address] Jul, [facility] [address] [id number] [address] [place] [address], [place] [address] Jun, [facility] [address] [id number] [address] [place] [address], [place] [address] Jun, [facility] [address] [id number] [address] [place] [address], [place] [address] Jun, [facility] [address] [id number] [address] [place] [address], [place] [address] May, [facility] [address] [id number] [address] [place] [address], [place] [address] May, [facility] [address] [id number] [address] [place] [address], [place] [address] Apr, [facility] [address] [id number] [address] [place] [address], [place] [address] Apr, [facility] [address] [id number] [address] [place] [address], [place] [address] Apr, [facility] [address] [id number] [address] [place] [address], [place] [address] Apr, [facility] [address] [id number] [address] [place] [address], [place] [address] March, [facility] [address] [id number] [address] [place] [address], [place] [address] March, [facility] [address] [id number] [address] [place] [address], [place] [address] March, [facility] [address] [id number] [address] [place] [address], [place] [address] Jan, [facility] [address] [id number] [address] [place] [address], [place] [address] Jan, [facility] [address] [id number] [address] [place] [address], [place] [address] Jan, [facility] [address] [id number] [address] [place] [address], [place] [address] 16 Nov, 2011 [facility] [address] [id number] [address] [place] [address], [place] [address] Nov, [facility] [address] [id number] [address] [place] [address], [place] [address] Nov, [facility] [address] [id number] [address] [place] [address], [place] [address] Nov, [facility] [address] [id number] [address] [place] [address], [place] [address] Oct, [facility] [address] [id number] [address] [place] [address], [place] [address] Oct, [facility] [address] [id number] [address] [place] [address], [place] [address] Oct, [facility] [facility] [address] [id number] [address] [place] [address], [place] [id number] Oct, [facility] [address] [id number] [address] [place] [address], [place] [id number] Oct, [facility] [address] [id number] [address] [place] [id number] Oct, [facility] [address] [facility] [id number] [address] [place] [id number] Oct, IMMUNIZATIONS No Known Immunizations SOCIAL HISTORY Never Assessed REASON FOR VISIT PLAN OF CARE VITAL SIGNS MEDICATIONS Unknown Medications RESULTS No Results PROCEDURES Procedure Date Ordered Result Body Site GLYCATED HEMOGLOBIN TEST April 18, 2012 LIPID PANEL April 18, 2012 COMPREHEN METABOLIC PANEL April 18, 2012 VENIPUNCT, ROUTINE* April 18, 2012 INSTRUCTIONS MEDICATIONS ADMINISTERED No Known Medications MEDICAL (GENERAL) HISTORY Type Description Date Medical History chronic obstructive pulmonary disease (C OPD) Medical History diabetes mellitus Medical History Hypertension Medical History Hyperlipidemia Medical History Stroke syndrome 2006 Surgical History Left leg amputation 1998 Surgical History Cardiothoracic surgery Defibrillator 200 6 Hospitalization History surgeries
--- OUTSIDE RECORDS SUMMARY | 2020-04-18 19:32 | XMS REPORT ---
Author Author Carroll CUNHA Organization [facility] Address [address] [place] [address] Care Team Providers Care Helicopter Specialist Name Role Phone JS CUNHA Unavailable PROBLEMS Type Condition ICD9-CM Code AIN44-RW Code Onset Dates Condition S tatus SNOMED Code Problem Coronary disease I25.10 Active 537 47051 Problem Arthritis M19.90 Active 8678358 Problem Gastroesophageal reflux disease, esophagitis pre sence not specified K21.9 Active 198215953 Problem Chronic kidney disease, stage IV (severe) N18.4 Active 778779641 Problem Secondary hyperparathyroidism of renal origin N25. 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 [id number] [address] [place] [address] 18 Jan, [id number] [place] [id number] 17 Jan, 2020 Anxiety F41.9 [facility] [address] 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 ; Onychomycosis B35.1 and Self-care deficit for grooming and hygiene Z74.1 [place] [address] [place] [id number] [address] [place] [address] 25 Dec, 2019 Type 2 diabetes mellitus wit h diabetic nephropathy E11.21 ; Phantom limb pain G54.6 ; Chronic kidney disease, stage IV (severe) N18.4 ; Secondary hyperparathyroidism of renal origin N25.81 ; Chronic systolic (congestive) heart failure I50.22 and Peripheral vascular disease, unspecified I73.9 [place] [address] [place] [id number] [place] [address] 17 Dec, 2019 [place] [address] [place] [id number] [place] [address] Dec, [place] [address] [place] [id number] [place] [address] Oct, Nail hypertrophy L60.2 and O nychomycosis B35.1 [place] [address] [place] [id number] [place] [address] Sep, Diabetes E11.9 ; Anxiety F41 .9 and Phantom limb pain G54.6 [place] [address] [place] [id number] [address] [place] [address] Sep, [place] [address] [place] [id number] [place] [address] Sep, [place] [address] [place] [id number] [address] [place] [address] Aug, Diarrhea, unspecified type R 19.7 [facility] [address] [place] [id number] [address] [place] [address] Aug, [facility] [address] [place] [id number] [address] [place] [address] Aug, [place] [address] [place] [id number] [address] [place] [address] Jul, Anxiety F41.9 [place] [address] [place] [id number] [address] [place] [address] May, Phantom limb pain G54.6 and Amputated left leg Z89.612 [facility] [address] [id number] [address] [place] [address] Apr, Phantom limb pain G54.6 [facility] [address] [id number] [address] [place] [address] Apr, [facility] [address] [facility] [id number] [address] [place] [address] Apr, [facility] [address] [facility] [id number] [address] [place] [address] Apr, Nail hypertrophy L60.2 and S elf-care deficit for grooming and hygiene Z74.1 [place] [address] [facility] [id number] [address] [place] [address] March, Type 2 diabetes mellitus wit h diabetic nephropathy E11.21 ; Chronic kidney disease, stage IV (severe) N18.4 ; Anxiety F41.9 and Amputated left leg Z89.612 [facility] [address] [facility] [id number] [address] [place] [address] March, Anxiety F41.9 and Transient weakness of right lower extremity R29.898 [place] [address] [facility] [id number] [address] [place] [address] March, [facility] [address] [facility] [id number] [address] [place] [address] March, [facility] [address] [facility] [id number] [address] [place] [address] Feb, [facility] [address] [facility] [id number] [address] [place] [address] Aug, Anxiety F41.9 [facility] [address] [facility] [id number] [address] [place] [address] Aug, Medicare annual wellness vis it, initial Z00.00 ; Encounter for immunization Z23 ; Coronary disease I25.10 ; Type 2 diabetes mellitus with diabetic nephropathy E11.21 ; Chronic kidney disease, stage IV (severe) N18.4 ; Secondary hyperparathyroidism of renal origin N25.81 ; Anxiety F41.9 and Gastroesophageal reflux disease, esophagitis presence not specified K21.9 [facility] [address] [place] [id number] [address] [place] [address] Jul, Friction blister of right lo wer extremity, initial encounter S80.821A [place] [address] [address] Jul, Localized edema R60.0 ; Type 2 diabetes mellitus with diabetic nephropathy E11.21 ; Coronary disease I25.10 and Anxiety F41.9 [place] [address] [address] Jun, [place] [address] [address] March, Type 2 diabetes mellitus wit h diabetic nephropathy E11.21 ; 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 insulin Z79.4 ; Chronic kidney disease, stage IV (severe) N18.4 ; Secondary hyperparathyroidism of renal origin N25.81 ; Coronary disease I25.10 and Gastroesophageal reflux disease, esophagitis presence not specified K21.9 [place] [address] [address] Nov, Type 2 diabetes mellitus wit hout complications E11.9 ; Coronary disease I25.10 and Essential hypertension I10 [place] [id number] [place] [address] May, Diabetes E11.9 [place] [address] [place] [id number] [address] [place] [address] Apr, Type 2 diabetes mellitus wit hout complications E11.9 and Arthritis M19.90 [place] [address] [place] [id number] [address] [place] [address] March, Diabetes E11.9 [place] [address] [place] [id number] [address] [place] [address] March, Diabetes E11.9 [place] [address] [place] [id number] [address] [place] [address] March, [facility] [address] [id number] [address] [place] [address] Feb, Diabetes E11.9 [facility] [address] [id number] [address] [place] [address] Feb, Diabetes E11.9 [facility] [address] [id number] [address] [place] [address] Jan, [facility] [address] [id number] [address] [place] [address] Jan, Diabetes E11.9 [facility] [address] [id number] [address] [place] [address] Jan, Type 2 diabetes mellitus wit hout complications E11.9 [facility] [address] [id number] [address] [place] [address] Oct, [facility] [address] [id number] [address] [place] [address] Oct, Gastroesophageal reflux dise ase, esophagitis presence not specified K21.9 [facility] [address] [id number] [address] [place] [address] Sep, [facility] [address] [facility] [id number] [address] [place] [address] Sep, [facility] [address] [id number] [address] [place] [address] Sep, [facility] [address] [id number] [address] [place] [address] Aug, [facility] [address] [facility] [id number] [address] [place] [address] Aug, Diabetes E11.9 and Encounter for immunization Z23 [facility] [address] [id number] [address] [place] [address] Aug, [facility] [address] [id number] [address] [place] [address], [place] [address] 08 Jul, 2016 [facility] [address] [id number] [address] [place] [address], [place] [address] Jun, [facility] [address] [id number] [address] [place] [address], [place] [address] May, Diabetes E11.9 [facility] [address] [id number] [address] [place] [address], [place] [address] Apr, [facility] [address] [id number] [address] [place] [address], [place] [address] Apr, [facility] [address] [id number] [address] [place] [address], [place] [address] March, [facility] [address] [id number] [address] [place] [address], [place] [address] March, [facility] [address] [id number] [address] [place] [address], [place] [address] Feb, [facility] [address] [id number] [address] [place] [address], [place] [address] Feb, [facility] [address] [id number] [address] [place] [address], [place] [address] 18 Feb, 2016 [facility] [address] [id number] [address] [place] [address] 14 Feb, 2016 [facility] [address] [id number] [address] [place] [address], [place] [address] Feb, [facility] [address] [id number] [address] [place] [address], [place] [address] Feb, Type 2 diabetes mellitus wit hout complications E11.9 [facility] [address] [id number] [address] [place] [address], [place] [address] 08 Feb, 2016 [facility] [address] [id number] [address] [place] [address], [place] [address] Jan, [facility] [address] [id number] [address] [place] [address] Dec, Eustachian tube dysfunction H69.80 and Diabetes E11.9 [facility] [address] [facility] [id number] [address] [place] [address] Dec, [facility] [address] [facility] [id number] [address] [place] [address] Dec, [facility] [address] [address] Dec, Type 2 diabetes mellitus wit hout complications E11.9 ; Atherosclerotic heart disease of [place] coronary artery without angina pectoris I25.10 and Diabetes E11.9 [facility] [address] [facility] [id number] [address] Dec, [facility] [address] [address] Dec, CHF (congestive heart failur e) I50.9 [facility] [address] [place] [id number] [address] [place] [address] Nov, Diabetes E11.9 and Coronary disease I25.10 [facility] [address] [place] [id number] [address] [place] [address] Oct, [facility] [address] [place] [id number] [address] [place] [address] Aug, [facility] [address] [place] [id number] [address] [place] [address] Jul, [facility] [address] [place] [id number] [address] [place] [address] 08 Jul, 2015 DM w/o complication type II 250.00 and Spontaneous bleeding of digits 459.0 [facility] [address] [place] [id number] [address] [place] [address] Apr, [facility] [address] [place] [id number] [address] [place] [address] Apr, [facility] [address] [place] [id number] [address] [place] [address] March, CHF (congestive heart failur e) 428.0 and Coronary atherosclerosis of unspecified type of vessel, [place] or graft 414.00 [facility] [address] [id number] [address] [place] [address] March, [facility] [address] [id number] [address] [place] [address] Feb, [facility] [address] [id number] [address] [place] [address] Feb, [facility] [address] [id number] [address] [place] [address] Jan, [facility] [address] [id number] [address] [place] [address] Jan, [facility] [address] [id number] [address] [place] [address] Dec, [facility] [address] [id number] [address] [place] [address] Dec, [facility] [address] [id number] [address] [place] [address] Dec, [facility] [address] [id number] [address] [place] [address] Dec, [facility] [address] [id number] [address] [place] [address] Dec, [facility] [address] [id number] [address] [place] [address] Dec, [facility] [address] [id number] [address] [place] [address] Nov, [facility] [address] [id number] [address] [place] [address] Nov, [facility] [address] [id number] [address] [place] [address] Oct, [facility] [address] [id number] [address] [place] [address], [place] [address] Sep, [facility] [address] [id number] [address] [place] [address], [place] [address] Sep, [facility] [address] [id number] [address] [place] [address], [place] [address] Sep, [facility] [address] [id number] [address] [place] [address], [place] [address] Sep, [facility] [address] [id number] [address] [place] [address], [place] [address] Jul, [facility] [address] [id number] [address] [place] [address], [place] [address] Jul, [facility] [address] [id number] [address] [place] [address], [place] [address] Jul, [facility] [address] [id number] [address] [place] [address], [place] [address] Jul, [facility] [address] [id number] [address] [place] [address], [place] [address] Jun, [facility] [address] [id number] [address] [place] [address], [place] [address] Jun, [facility] [address] [id number] [address] [place] [address], [place] [address] Jun, [facility] [address] [id number] [address] [place] [address], [place] [address] Jun, [facility] [address] [id number] [address] [place] [address], [place] [address] Apr, [facility] [address] [id number] [address] [place] [address], [place] [address] Apr, [facility] [address] [id number] [address] [place] [address], [place] [address] Apr, [facility] [address] [id number] [address] [place] [address], [place] [address] Apr, [facility] [address] [id number] [address] [place] [address], [place] [address] Dec, [facility] [address] [id number] [address] [place] [address], [place] [address] Dec, [facility] [address] [id number] [address] [place] [address], [place] [address] Dec, [facility] [address] [id number] [address] [place] [address], [place] [address] Dec, [facility] [address] [id number] [address] [place] [address], [place] [address] Dec, [facility] [address] [id number] [address] [place] [address], [place] [address] Dec, [facility] [address] [id number] [address] [place] [address], [place] [address] Nov, [facility] [address] [id number] [address] [place] [address], [place] [address] Nov, [facility] [address] [id number] [address] [place] [address], [place] [address] Sep, [facility] [address] [id number] [address] [place] [address], [place] [address] Sep, [facility] [address] [id number] [address] [place] [address], [place] [address] Sep, [facility] [address] [id number] [address] [place] [address], [place] [address] Sep, [facility] [address] [id number] [address] [place] [address], [place] [address] Sep, [facility] [address] [id number] [address] [place] [address], [place] [address] Aug, [facility] [address] [id number] [address] [place] [address], [place] [address] Aug, [facility] [address] [id number] [address] [place] [address], [place] [address] Aug, [facility] [address] [id number] [address] [place] [address], [place] [address] Aug, [facility] [address] [id number] [address] [place] [address], [place] [address] Jul, [facility] [address] [id number] [address] [place] [address], [place] [address] Jun, [facility] [address] [id number] [address] [place] [address], [place] [address] May, [facility] [address] [id number] [address] [place] [address], [place] [address] May, [facility] [address] [id number] [address] [place] [address], [place] [address] May, [facility] [address] [id number] [address] [place] [address], [place] [address] Apr, [facility] [address] [id number] [address] [place] [address], [place] [address] Apr, [facility] [address] [id number] [address] [place] [address], [place] [address] March, [facility] [address] [id number] [address] [place] [address], [place] [address] March, [facility] [address] [id number] [address] [place] [address], [place] [address] 18 Feb, 2013 [facility] [address] [id number] [address] [place] [address], [place] [address] 15 Feb, 2013 [facility] [address] [id number] [address] [place] [address], [place] [address] Feb, [facility] [address] [id number] [address] [place] [address], [place] [address] Jan, [facility] [address] [id number] [address] [place] [address], [place] [address] Jan, [facility] [address] [id number] [address] [place] [address], [place] [address] Jan, [facility] [address] [id number] [address] [place] [address], [place] [address] Dec, [facility] [address] [id number] [address] [place] [address], [place] [address] Dec, [facility] [address] [id number] [address] [place] [address], [place] [address] Dec, [facility] [address] [id number] [address] [place] [address], [place] [address] Nov, [facility] [address] [id number] [address] [place] [address], [place] [address] Nov, [facility] [address] [id number] [address] [place] [address], [place] [address] Nov, [facility] [address] [id number] [address] [place] [address], [place] [address] Nov, [facility] [address] [id number] [address] [place] [address], [place] [address] Nov, [facility] [address] [id number] [address] [place] [address], [place] [address] Nov, [facility] [address] [id number] [address] [place] [address], [place] [address] Oct, [facility] [address] [id number] [address] [place] [address], [place] [address] Oct, [facility] [address] [id number] [address] [place] [address], [place] [address] Oct, [facility] [address] [id number] [address] [place] [address], [place] [address] Oct, [facility] [address] [id number] [address] [place] [address], [place] [address] Sep, [facility] [address] [id number] [address] [place] [address], [place] [address] Sep, [facility] [address] [id number] [address] [place] [address], [place] [address] Sep, [facility] [address] [id number] [address] [place] [address], [place] [address] Sep, [facility] [address] [id number] [address] [place] [address], [place] [address] Aug, [facility] [address] [id number] [address] [place] [address], [place] [address] 24 Jul, 2012 [facility] [address] [id number] [address] [place] [address], [place] [address] Jul, [facility] [address] [id number] [address] [place] [address], [place] [address] Jul, [facility] [address] [id number] [address] [place] [address], [place] [address] Jun, [facility] [address] [id number] [address] [place] [address], [place] [address] Jun, [facility] [address] [id number] [address] [place] [address], [place] [address] Jun, [facility] [address] [id number] [address] [place] [address], [place] [address] May, [facility] [address] [id number] [address] [place] [address], [place] [address] May, [facility] [address] [id number] [address] [place] [address], [place] [address] Apr, [facility] [address] [id number] [address] [place] [address], [place] [address] Apr, [facility] [address] [id number] [address] [place] [address], [place] [address] Apr, [facility] [address] [id number] [address] [place] [address], [place] [address] Apr, [facility] [address] [id number] [address] [place] [address], [place] [address] March, [facility] [address] [id number] [address] [place] [address], [place] [address] March, [facility] [address] [id number] [address] [place] [address], [place] [address] March, [facility] [address] [id number] [address] [place] [address], [place] [address] Jan, [facility] [address] [id number] [address] [place] [address], [place] [address] Jan, [facility] [address] [id number] [address] [place] [address], [place] [address] Jan, [facility] [address] [id number] [address] [place] [address], [place] [address] 16 Nov, 2011 [facility] [address] [id number] [address] [place] [address], [place] [address] Nov, [facility] [facility] [address] [id number] [address] [place] [address], [place] [address] Nov, [facility] [address] [id number] [address] [place] [address], [place] [address] Nov, [facility] [address] [id number] [address] [place] [address], [place] [id number] Oct, [facility] [address] [id number] [address] [place] [address], [place] [id number] Oct, [facility] [address] [id number] [address] [place] [address], [place] [address] Oct, [facility] [address] [id number] [address] [place] [address], [place] [address] Oct, [facility] [address] [id number] [address] [place] [address], [place] [address] Oct, [facility] [address] [id number] [address] [place] [id number] Oct, [facility] [address] [facility] [id number] [address] [place] [id number] Oct, IMMUNIZATIONS No Known Immunizations SOCIAL HISTORY [...]
--- OUTSIDE RECORDS SUMMARY | 2020-04-18 19:32 | XMS REPORT ---
Author Author Carroll CUNHA Organization [facility] Address [address] [place] [address] Care Team Providers Care Guardian Ad Litem Name Role Phone JS CUNHA Unavailable PROBLEMS Type Condition ICD9-CM Code STZ00-EU Code Onset Dates Condition S tatus SNOMED Code Problem Coronary disease I25.10 Active 537 72037 Problem Arthritis M19.90 Active 9327062 Problem Gastroesophageal reflux disease, esophagitis pre sence not specified K21.9 Active 006957957 Problem Chronic kidney disease, stage IV (severe) N18.4 Active 546976332 Problem Secondary hyperparathyroidism of renal origin N25. 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 840406296 Problem Chronic systolic (congestive) heart failure I50.22 Active 889232681 Problem Essential hypertension I10 Active 35781215 Problem Anxiety F41.9 Active 41333547 Problem Amputated left leg Z89.612 Active 1 [id number] Problem Phantom limb pain G54.6 Active 57 17748836378 Problem Diabetes E11.9 Active 261234298 ALLERGIES No Information ENCOUNTERS Encounter Location Date Diagnosis [facility] [address] [facility] [id number] [address] [place] [address] 18 Jan, [id number] [place] [phone] 17 Jan, 2020 Anxiety F41.9 [facility] [address] [facility] [id number] [address] [place] [phone] 10 Jan, 2020 Nail hypertrophy L60.2 ; 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 ; Onychomycosis B35.1 and Self-care deficit for grooming and hygiene Z74.1 [place] [address] [place] [id number] [address] [place] [address] 25 Dec, 2019 Type 2 diabetes mellitus wit h diabetic nephropathy E11.21 ; Phantom limb pain G54.6 ; Chronic kidney disease, stage IV (severe) N18.4 ; Secondary hyperparathyroidism of renal origin N25.81 ; Chronic systolic (congestive) heart failure I50.22 and Peripheral vascular disease, unspecified I73.9 [place] [address] [place] [id number] [place] [address] 17 Dec, 2019 [place] [address] [place] [id number] [place] [address] Dec, [place] [address] [place] [id number] [place] [address] Oct, Nail hypertrophy L60.2 and O nychomycosis B35.1 [place] [address] [place] [id number] [place] [address] Sep, Diabetes E11.9 ; Anxiety F41 .9 and Phantom limb pain G54.6 [place] [address] [place] [id number] [address] [place] [address] Sep, [place] [address] [place] [id number] [place] [address] Sep, [place] [address] [place] [id number] [address] [place] [address] Aug, Diarrhea, unspecified type R 19.7 [facility] [address] [place] [id number] [address] [place] [address] Aug, [facility] [address] [place] [id number] [address] [place] [address] Aug, [place] [address] [place] [id number] [address] [place] [address] Jul, Anxiety F41.9 [place] [address] [place] [id number] [address] [place] [address] May, Phantom limb pain G54.6 and Amputated left leg Z89.612 [facility] [address] [id number] [address] [place] [address] Apr, Phantom limb pain G54.6 [facility] [address] [id number] [address] [place] [address] Apr, [facility] [address] [facility] [id number] [address] [place] [address] Apr, [facility] [address] [facility] [id number] [address] [place] [address] Apr, Nail hypertrophy L60.2 and S elf-care deficit for grooming and hygiene Z74.1 [place] [address] [facility] [id number] [address] [place] [address] March, Type 2 diabetes mellitus wit h diabetic nephropathy E11.21 ; Chronic kidney disease, stage IV (severe) N18.4 ; Anxiety F41.9 and Amputated left leg Z89.612 [facility] [address] [facility] [id number] [address] [place] [address] March, Anxiety F41.9 and Transient weakness of right lower extremity R29.898 [place] [id number] [facility] [id number] [address] [place] [address] March, [facility] [address] [facility] [id number] [address] [place] [address] March, [facility] [address] [facility] [id number] [address] [place] [phone] Feb, [facility] [address] [facility] [id number] [address] [place] [address] Aug, Anxiety F41.9 [facility] [address] [facility] [id number] [address] [place] [address] Aug, Medicare annual wellness vis it, initial Z00.00 ; Encounter for immunization Z23 ; Coronary disease I25.10 ; Type 2 diabetes mellitus with diabetic nephropathy E11.21 ; Chronic kidney disease, stage IV (severe) N18.4 ; Secondary hyperparathyroidism of renal origin N25.81 ; Anxiety F41.9 and Gastroesophageal reflux disease, esophagitis presence not specified K21.9 [facility] [address] [place] [id number] [address] [place] [address] Jul, Friction blister of right lo wer extremity, initial encounter S80.821A [place] [address] [address] Jul, Localized edema R60.0 ; Type 2 diabetes mellitus with diabetic nephropathy E11.21 ; Coronary disease I25.10 and Anxiety F41.9 [place] [address] [address] Jun, [place] [address] [address] March, Type 2 diabetes mellitus wit h diabetic nephropathy E11.21 ; 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.4 ; Chronic kidney disease, stage IV (severe) N18.4 ; Secondary hyperparathyroidism of renal origin N25.81 ; Coronary disease I25.10 and Gastroesophageal reflux disease, esophagitis presence not specified K21.9 [place] [address] [address] Nov, Type 2 diabetes mellitus wit hout complications E11.9 ; Coronary disease I25.10 and Essential hypertension I10 [place] [id number] [place] [address] May, Diabetes E11.9 [place] [address] [place] [id number] [address] [place] [address] Apr, Type 2 diabetes mellitus wit hout complications E11.9 and Arthritis M19.90 [place] [address] [place] [id number] [address] [place] [address] March, Diabetes E11.9 [place] [address] [place] [id number] [address] [place] [address] March, Diabetes E11.9 [place] [address] [place] [id number] [address] [place] [address] March, [facility] [address] [id number] [address] [place] [address] Feb, Diabetes E11.9 [facility] [address] [id number] [address] [place] [address] Feb, Diabetes E11.9 [facility] [address] [id number] [address] [place] [address] Jan, [facility] [address] [id number] [address] [place] [address] Jan, Diabetes E11.9 [facility] [address] [id number] [address] [place] [address] Jan, Type 2 diabetes mellitus wit hout complications E11.9 [facility] [address] [id number] [address] [place] [address] Oct, [facility] [address] [id number] [address] [place] [address] Oct, Gastroesophageal reflux dise ase, esophagitis presence not specified K21.9 [facility] [address] [id number] [address] [place] [address] Sep, [facility] [address] [facility] [id number] [address] [place] [address] Sep, [facility] [address] [id number] [address] [place] [address] Sep, [facility] [address] [id number] [address] [place] [address] Aug, [facility] [address] [facility] [id number] [address] [place] [address] Aug, Diabetes E11.9 and Encounter for immunization Z23 [facility] [address] [id number] [address] [place] [address] Aug, [facility] [address] [id number] [address] [place] [address], [place] [address] 08 Jul, 2016 [facility] [address] [id number] [address] [place] [address], [place] [address] Jun, [facility] [address] [id number] [address] [place] [address], [place] [address] May, Diabetes E11.9 [facility] [address] [id number] [address] [place] [address], [place] [address] Apr, [facility] [address] [id number] [address] [place] [address], [place] [address] Apr, [facility] [address] [id number] [address] [place] [address], [place] [address] March, [facility] [address] [id number] [address] [place] [address], [place] [address] March, [facility] [address] [id number] [address] [place] [address], [place] [address] Feb, [facility] [address] [id number] [address] [place] [address], [place] [address] Feb, [facility] [address] [id number] [address] [place] [address], [place] [address] 18 Feb, 2016 [facility] [address] [id number] [address] [place] [address] 14 Feb, 2016 [facility] [address] [id number] [address] [place] [address], [place] [address] Feb, [facility] [address] [id number] [address] [place] [address], [place] [address] Feb, Type 2 diabetes mellitus wit hout complications E11.9 [facility] [address] [id number] [address] [place] [address], [place] [address] 08 Feb, 2016 [facility] [address] [id number] [address] [place] [address], [place] [address] Jan, [facility] [address] [id number] [address] [place] [address] Dec, Eustachian tube dysfunction H69.80 and Diabetes E11.9 [facility] [address] [facility] [id number] [address] [place] [phone] Dec, [facility] [address] [facility] [id number] [address] [place] [address] Dec, [facility] [address] [address] Dec, Type 2 diabetes mellitus wit hout complications E11.9 ; 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 and Diabetes E11.9 [facility] [address] [facility] [id number] [address] Dec, [facility] [address] [address] Dec, CHF (congestive heart failur e) I50.9 [facility] [address] [place] [id number] [address] [place] [address] Nov, Diabetes E11.9 and Coronary disease I25.10 [facility] [address] [place] [id number] [address] [place] [address] Oct, [facility] [address] [place] [id number] [address] [place] [address] Aug, [facility] [address] [place] [id number] [address] [place] [address] Jul, [facility] [address] [place] [id number] [address] [place] [address] 08 Jul, 2015 DM w/o complication type II 250.00 and Spontaneous bleeding of digits 459.0 [facility] [address] [place] [id number] [address] [place] [id number] Apr, [facility] [address] [place] [id number] [address] [place] [address] Apr, [facility] [address] [place] [id number] [address] [place] [address] March, CHF (congestive heart failur e) 428.0 and Coronary atherosclerosis of unspecified type of vessel, barrow or graft 414.00 [facility] [address] [id number] [address] [place] [address] March, [facility] [address] [id number] [address] [place] [address] Feb, [facility] [address] [id number] [address] [place] [address] Feb, [facility] [address] [id number] [address] [place] [phone] Jan, [facility] [address] [id number] [address] [place] [address] Jan, [facility] [address] [id number] [address] [place] [phone] Dec, [facility] [address] [id number] [address] [place] [phone] Dec, [facility] [address] [id number] [address] [place] [phone] Dec, [facility] [address] [id number] [address] [place] [phone] Dec, [facility] [address] [id number] [address] [place] [address] Dec, [facility] [address] [id number] [address] [place] [phone] Dec, [facility] [address] [id number] [address] [place] [address] Nov, [facility] [address] [id number] [address] [place] [phone] Nov, [facility] [address] [id number] [address] [place] [phone] Oct, [facility] [address] [id number] [address] [place] [address], [place] [address] Sep, [facility] [address] [id number] [address] [place] [address], [place] [address] Sep, [facility] [address] [id number] [address] [place] [address], [place] [address] Sep, [facility] [address] [id number] [address] [place] [address], [place] [address] Sep, [facility] [address] [id number] [address] [place] [address], [place] [address] Jul, [facility] [address] [id number] [address] [place] [address], [place] [address] Jul, [facility] [address] [id number] [address] [place] [address], [place] [address] Jul, [facility] [address] [id number] [address] [place] [address], [place] [address] Jul, [facility] [address] [id number] [address] [place] [address], [place] [address] Jun, [facility] [address] [id number] [address] [place] [address], [place] [address] Jun, [facility] [address] [id number] [address] [place] [address], [place] [address] Jun, [facility] [address] [id number] [address] [place] [address], [place] [address] Jun, [facility] [address] [id number] [address] [place] [address], [place] [address] Apr, [facility] [address] [id number] [address] [place] [address], [place] [address] Apr, [facility] [address] [id number] [address] [place] [address], [place] [address] Apr, [facility] [address] [id number] [address] [place] [address], [place] [address] Apr, [facility] [address] [id number] [address] [place] [address], [place] [address] Dec, [facility] [address] [id number] [address] [place] [address], [place] [address] Dec, [facility] [address] [id number] [address] [place] [address], [place] [address] Dec, [facility] [address] [id number] [address] [place] [address], [place] [address] Dec, [facility] [address] [id number] [address] [place] [address], [place] [address] Dec, [facility] [address] [id number] [address] [place] [address], [place] [address] Dec, [facility] [address] [id number] [address] [place] [address], [place] [address] Nov, [facility] [address] [id number] [address] [place] [address], [place] [address] Nov, [facility] [address] [id number] [address] [place] [address], [place] [address] Sep, [facility] [address] [id number] [address] [place] [address], [place] [address] Sep, [facility] [address] [id number] [address] [place] [address], [place] [address] Sep, [facility] [address] [id number] [address] [place] [address], [place] [address] Sep, [facility] [address] [id number] [address] [place] [address], [place] [address] Sep, [facility] [address] [id number] [address] [place] [address], [place] [address] Aug, [facility] [address] [id number] [address] [place] [address], [place] [address] Aug, [facility] [address] [id number] [address] [place] [address], [place] [address] Aug, [facility] [address] [id number] [address] [place] [address], [place] [address] Aug, [facility] [address] [id number] [address] [place] [address], [place] [address] Jul, [facility] [address] [id number] [address] [place] [address], [place] [address] Jun, [facility] [address] [id number] [address] [place] [address], [place] [address] May, [facility] [address] [id number] [address] [place] [address], [place] [address] May, [facility] [address] [id number] [address] [place] [address], [place] [address] May, [facility] [address] [id number] [address] [place] [address], [place] [address] Apr, [facility] [address] [id number] [address] [place] [address], [place] [address] Apr, [facility] [address] [id number] [address] [place] [address], [place] [address] March, [facility] [address] [id number] [address] [place] [address], [place] [address] March, [facility] [address] [id number] [address] [place] [address], [place] [address] 18 Feb, 2013 [facility] [address] [id number] [address] [place] [address], [place] [address] 15 Feb, 2013 [facility] [address] [id number] [address] [place] [address], [place] [address] Feb, [facility] [address] [id number] [address] [place] [address], [place] [address] Jan, [facility] [address] [id number] [address] [place] [address], [place] [address] Jan, [facility] [address] [id number] [address] [place] [address], [place] [address] Jan, [facility] [address] [id number] [address] [place] [address], [place] [address] Dec, [facility] [address] [id number] [address] [place] [address], [place] [address] Dec, [facility] [address] [id number] [address] [place] [address], [place] [address] Dec, [facility] [address] [id number] [address] [place] [address], [place] [address] Nov, [facility] [address] [id number] [address] [place] [address], [place] [address] Nov, [facility] [address] [id number] [address] [place] [address], [place] [address] Nov, [facility] [address] [id number] [address] [place] [address], [place] [address] Nov, [facility] [address] [id number] [address] [place] [address], [place] [address] Nov, [facility] [address] [id number] [address] [place] [address], [place] [address] Nov, [facility] [address] [id number] [address] [place] [address], [place] [address] Oct, [facility] [address] [id number] [address] [place] [address], [place] [address] Oct, [facility] [address] [id number] [address] [place] [address], [place] [address] Oct, [facility] [address] [id number] [address] [place] [address], [place] [address] Oct, [facility] [address] [id number] [address] [place] [address], [place] [address] Sep, [facility] [address] [id number] [address] [place] [address], [place] [address] Sep, [facility] [address] [id number] [address] [place] [address], [place] [address] Sep, [facility] [address] [id number] [address] [place] [address], [place] [address] Sep, [facility] [address] [id number] [address] [place] [address], [place] [address] Aug, [facility] [address] [id number] [address] [place] [address], [place] [address] 24 Jul, 2012 [facility] [address] [id number] [address] [place] [address], [place] [address] Jul, [facility] [address] [id number] [address] [place] [address], [place] [address] Jul, [facility] [address] [id number] [address] [place] [address], [place] [address] Jun, [facility] [address] [id number] [address] [place] [address], [place] [address] Jun, [facility] [address] [id number] [address] [place] [address], [place] [address] Jun, [facility] [address] [id number] [address] [place] [address], [place] [address] May, [facility] [address] [id number] [address] [place] [address], [place] [address] May, [facility] [address] [id number] [address] [place] [address], [place] [address] Apr, [facility] [address] [id number] [address] [place] [address], [place] [address] Apr, [facility] [address] [id number] [address] [place] [address], [place] [address] Apr, [facility] [address] [id number] [address] [place] [address], [place] [address] Apr, [facility] [address] [id number] [address] [place] [address], [place] [address] March, [facility] [address] [id number] [address] [place] [address], [place] [address] March, [facility] [address] [id number] [address] [place] [place] [address], [place] [address] March, [facility] [address] [id number] [address] [place] [address], [place] [address] Jan, [facility] [address] [id number] [address] [place] [address], [place] [address] Jan, [facility] [address] [id number] [address] [place] [address], [place] [address] Jan, [facility] [address] [id number] [address] [place] [address], [place] [id number] 16 Nov, 2011 [facility] [address] [id number] [address] [place] [address], [place] [address] Nov, [facility] [address] [id number] [address] [place] [address], [place] [address] Nov, [facility] [address] [id number] [address] [place] [address], [place] [address] Nov, [facility] [address] [id number] [address] [place] [address], [place] [address] Oct, [facility] [address] [id number] [address] [place] [address], [place] [address] Oct, [facility] [address] [id number] [address] [place] [address], [place] [address] Oct, [facility] [address] [id number] [address] [place] [address], [place] [address] Oct, [facility] [address] [id number] [address] [place] [address], [place] [address] Oct, [facility] [address] [id number] [address] [place] [id number] Oct, [facility] [address] [facility] [id number] [address] [place] [id number] Oct, IMMUNIZATIONS No Known Immunizations SOCIAL HISTORY [...]
--- OUTSIDE RECORDS SUMMARY | 2020-04-18 19:32 | XMS REPORT ---
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 713433914 Problem Chronic systolic (congestive) heart failure I50.22 Active 172147192 Problem Essential hypertension I10 Active 72547134 Problem Anxiety F41.9 Active 18402312 Problem Amputated left leg Z89.612 Active 1 [id number] Problem Phantom limb pain G54.6 Active 57 75362532305 Problem Diabetes E11.9 Active 211459405 ALLERGIES No Information ENCOUNTERS Encounter Location Date Diagnosis [facility] [address] [facility] [id number] [address] [place] [address] 18 Jan, [id number] [place] [id number] 17 Jan, 2020 Anxiety F41.9 [facility] [address] [facility] [id number] [address] [place] [address] 10 Jan, 2020 Nail hypertrophy L60.2 ; 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 ; Onychomycosis B35.1 and Self-care deficit for grooming and hygiene Z74.1 [place] [address] [place] [id number] [address] [place] [address] 25 Dec, 2019 Type 2 diabetes mellitus wit h diabetic nephropathy E11.21 ; Phantom limb pain G54.6 ; Chronic kidney disease, stage IV (severe) N18.4 ; Secondary hyperparathyroidism of renal origin N25.81 ; Chronic systolic (congestive) heart failure I50.22 and Peripheral vascular disease, unspecified I73.9 [place] [address] [place] [id number] [place] [address] 17 Dec, 2019 [place] [address] [place] [id number] [place] [address] Dec, [place] [address] [place] [id number] [place] [address] Oct, Nail hypertrophy L60.2 and O nychomycosis B35.1 [place] [address] [place] [id number] [place] [address] Sep, Diabetes E11.9 ; Anxiety F41 .9 and Phantom limb pain G54.6 [place] [address] [place] [id number] [address] [place] [address] Sep, [place] [address] [place] [id number] [place] [address] Sep, [place] [address] [place] [id number] [address] [place] [address] Aug, Diarrhea, unspecified type R 19.7 [facility] [address] [place] [id number] [address] [place] [address] Aug, [facility] [address] [place] [id number] [address] [place] [address] Aug, [place] [address] [place] [id number] [address] [place] [address] Jul, Anxiety F41.9 [place] [address] [place] [id number] [address] [place] [address] May, Phantom limb pain G54.6 and Amputated left leg Z89.612 [facility] [address] [id number] [address] [place] [address] Apr, Phantom limb pain G54.6 [facility] [address] [id number] [address] [place] [address] Apr, [facility] [address] [facility] [id number] [address] [place] [address] Apr, [facility] [address] [facility] [id number] [address] [place] [address] Apr, Nail hypertrophy L60.2 and S elf-care deficit for grooming and hygiene Z74.1 [place] [address] [facility] [id number] [address] [place] [address] March, Type 2 diabetes mellitus wit h diabetic nephropathy E11.21 ; Chronic kidney disease, stage IV (severe) N18.4 ; Anxiety F41.9 and Amputated left leg Z89.612 [facility] [address] [facility] [id number] [address] [place] [address] March, Anxiety F41.9 and Transient weakness of right lower extremity R29.898 [place] [address] [facility] [id number] [address] [place] [address] March, [facility] [address] [facility] [id number] [address] [place] [address] March, [facility] [address] [facility] [id number] [address] [place] [address] Feb, [facility] [address] [facility] [id number] [address] [place] [address] Aug, Anxiety F41.9 [facility] [address] [facility] [id number] [address] [place] [address] Aug, Medicare annual wellness vis it, initial Z00.00 ; Encounter for immunization Z23 ; Coronary disease I25.10 ; Type 2 diabetes mellitus with diabetic nephropathy E11.21 ; Chronic kidney disease, stage IV (severe) N18.4 ; Secondary hyperparathyroidism of renal origin N25.81 ; Anxiety F41.9 and Gastroesophageal reflux disease, esophagitis presence not specified K21.9 [facility] [address] [place] [id number] [address] [place] [address] Jul, Friction blister of right lo wer extremity, initial encounter S80.821A [place] [address] [address] Jul, Localized edema R60.0 ; Type 2 diabetes mellitus with diabetic nephropathy E11.21 ; Coronary disease I25.10 and Anxiety F41.9 [place] [address] [address] Jun, [place] [address] [address] March, Type 2 diabetes mellitus wit h diabetic nephropathy E11.21 ; 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 ; Chronic kidney disease, stage IV (severe) N18.4 ; Secondary hyperparathyroidism of renal origin N25.81 ; Coronary disease I25.10 and Gastroesophageal reflux disease, esophagitis presence not specified K21.9 [place] [address] [address] Nov, Type 2 diabetes mellitus wit hout complications E11.9 ; Coronary disease I25.10 and Essential hypertension I10 [place] [id number] [place] [address] May, Diabetes E11.9 [place] [address] [place] [id number] [address] [place] [address] Apr, Type 2 diabetes mellitus wit hout complications E11.9 and Arthritis M19.90 [place] [address] [place] [id number] [address] [place] [address] March, Diabetes E11.9 [place] [address] [place] [id number] [address] [place] [address] March, Diabetes E11.9 [place] [address] [place] [id number] [address] [place] [address] March, [facility] [address] [id number] [address] [place] [address] Feb, Diabetes E11.9 [facility] [address] [id number] [address] [place] [address] Feb, Diabetes E11.9 [facility] [address] [id number] [address] [place] [address] Jan, [facility] [address] [id number] [address] [place] [address] Jan, Diabetes E11.9 [facility] [address] [id number] [address] [place] [address] Jan, Type 2 diabetes mellitus wit hout complications E11.9 [facility] [address] [id number] [address] [place] [address] Oct, [facility] [address] [id number] [address] [place] [address] Oct, Gastroesophageal reflux dise ase, esophagitis presence not specified K21.9 [facility] [address] [id number] [address] [place] [address] Sep, [facility] [address] [facility] [id number] [address] [place] [address] Sep, [facility] [address] [id number] [address] [place] [address] Sep, [facility] [address] [id number] [address] [place] [address] Aug, [facility] [address] [facility] [id number] [address] [place] [address] Aug, Diabetes E11.9 and Encounter for immunization Z23 [facility] [address] [id number] [address] [place] [address] Aug, [facility] [address] [id number] [address] [place] [address], [place] [address] 08 Jul, 2016 [facility] [address] [id number] [address] [place] [address], [place] [address] Jun, [facility] [address] [id number] [address] [place] [address], [place] [address] May, Diabetes E11.9 [facility] [address] [id number] [address] [place] [address], [place] [address] Apr, [facility] [address] [id number] [address] [place] [address], [place] [address] Apr, [facility] [address] [id number] [address] [place] [address], [place] [address] March, [facility] [address] [id number] [address] [place] [address], [place] [address] March, [facility] [address] [id number] [address] [place] [address], [place] [address] Feb, [facility] [address] [id number] [address] [place] [address], [place] [address] Feb, [facility] [address] [id number] [address] [place] [address], [place] [address] 18 Feb, 2016 [facility] [address] [id number] [address] [place] [address] 14 Feb, 2016 [facility] [address] [id number] [address] [place] [address], [place] [address] Feb, [facility] [address] [id number] [address] [place] [address], [place] [address] Feb, Type 2 diabetes mellitus wit hout complications E11.9 [facility] [address] [id number] [address] [place] [address], [place] [address] 08 Feb, 2016 [facility] [address] [id number] [address] [place] [address], [place] [address] Jan, [facility] [address] [id number] [address] [place] [address] Dec, Eustachian tube dysfunction H69.80 and Diabetes E11.9 [facility] [address] [facility] [id number] [address] [place] [address] Dec, [facility] [address] [facility] [id number] [address] [place] [address] Dec, [facility] [address] [address] Dec, Type 2 diabetes mellitus wit hout complications E11.9 ; Atherosclerotic heart disease of [place] coronary artery without angina pectoris I25.10 and Diabetes E11.9 [facility] [address] [facility] [id number] [address] Dec, [facility] [address] [address] Dec, CHF (congestive heart failur e) I50.9 [facility] [address] [place] [id number] [address] [place] [address] Nov, Diabetes E11.9 and Coronary disease I25.10 [facility] [address] [place] [id number] [address] [place] [address] Oct, [facility] [address] [place] [id number] [address] [place] [address] Aug, [facility] [address] [place] [id number] [address] [place] [address] Jul, [facility] [address] [place] [id number] [address] [place] [address] 08 Jul, 2015 DM w/o complication type II 250.00 and Spontaneous bleeding of digits 459.0 [facility] [address] [place] [id number] [address] [place] [address] Apr, [facility] [address] [place] [id number] [address] [place] [address] Apr, [facility] [address] [place] [id number] [address] [place] [address] March, CHF (congestive heart failur e) 428.0 and Coronary atherosclerosis of unspecified type of vessel, [place] or graft 414.00 [facility] [address] [id number] [address] [place] [address] March, [facility] [address] [id number] [address] [place] [address] Feb, [facility] [address] [id number] [address] [place] [address] Feb, [facility] [address] [id number] [address] [place] [address] Jan, [facility] [address] [id number] [address] [place] [address] Jan, [facility] [address] [id number] [address] [place] [address] Dec, [facility] [address] [id number] [address] [place] [address] Dec, [facility] [address] [id number] [address] [place] [address] Dec, [facility] [address] [id number] [address] [place] [address] Dec, [facility] [address] [id number] [address] [place] [address] Dec, [facility] [address] [id number] [address] [place] [address] Dec, [facility] [address] [id number] [address] [place] [address] Nov, [facility] [address] [id number] [address] [place] [address] Nov, [facility] [address] [id number] [address] [place] [address] Oct, [facility] [address] [id number] [address] [place] [address], [place] [address] Sep, [facility] [address] [id number] [address] [place] [address], [place] [address] Sep, [facility] [address] [id number] [address] [place] [address], [place] [address] Sep, [facility] [address] [id number] [address] [place] [address], [place] [address] Sep, [facility] [address] [id number] [address] [place] [address], [place] [address] Jul, [facility] [address] [id number] [address] [place] [address], [place] [address] Jul, [facility] [address] [id number] [address] [place] [address], [place] [address] Jul, [facility] [address] [id number] [address] [place] [address], [place] [address] Jul, [facility] [address] [id number] [address] [place] [address], [place] [address] Jun, [facility] [address] [id number] [address] [place] [address], [place] [address] Jun, [facility] [address] [id number] [address] [place] [address], [place] [address] Jun, [facility] [address] [id number] [address] [place] [address], [place] [address] Jun, [facility] [address] [id number] [address] [place] [address], [place] [address] Apr, [facility] [address] [id number] [address] [place] [address], [place] [address] Apr, [facility] [address] [id number] [address] [place] [address], [place] [address] Apr, [facility] [address] [id number] [address] [place] [address], [place] [address] Apr, [facility] [address] [id number] [address] [place] [address], [place] [address] Dec, [facility] [address] [id number] [address] [place] [address], [place] [address] Dec, [facility] [address] [id number] [address] [place] [address], [place] [address] Dec, [facility] [address] [id number] [address] [place] [address], [place] [address] Dec, [facility] [address] [id number] [address] [place] [address], [place] [address] Dec, [facility] [address] [id number] [address] [place] [address], [place] [address] Dec, [facility] [address] [id number] [address] [place] [address], [place] [address] Nov, [facility] [address] [id number] [address] [place] [address], [place] [address] Nov, [facility] [address] [id number] [address] [place] [address], [place] [address] Sep, [facility] [address] [id number] [address] [place] [address], [place] [address] Sep, [facility] [address] [id number] [address] [place] [address], [place] [address] Sep, [facility] [address] [id number] [address] [place] [address], [place] [address] Sep, [facility] [address] [id number] [address] [place] [address], [place] [address] Sep, [facility] [address] [id number] [address] [place] [address], [place] [address] Aug, [facility] [address] [id number] [address] [place] [address], [place] [address] Aug, [facility] [address] [id number] [address] [place] [address], [place] [address] Aug, [facility] [address] [id number] [address] [place] [address], [place] [address] Aug, [facility] [address] [id number] [address] [place] [address], [place] [address] Jul, [facility] [address] [id number] [address] [place] [address], [place] [address] Jun, [facility] [address] [id number] [address] [place] [address], [place] [address] May, [facility] [address] [id number] [address] [place] [address], [place] [address] May, [facility] [address] [id number] [address] [place] [address], [place] [address] May, [facility] [address] [id number] [address] [place] [address], [place] [address] Apr, [facility] [address] [id number] [address] [place] [address], [place] [address] Apr, [facility] [address] [id number] [address] [place] [address], [place] [address] March, [facility] [address] [id number] [address] [place] [address], [place] [address] March, [facility] [address] [id number] [address] [place] [address], [place] [address] 18 Feb, 2013 [facility] [address] [id number] [address] [place] [address], [place] [address] 15 Feb, 2013 [facility] [address] [id number] [address] [place] [address], [place] [address] Feb, [facility] [address] [id number] [address] [place] [address], [place] [address] Jan, [facility] [address] [id number] [address] [place] [address], [place] [address] Jan, [facility] [address] [id number] [address] [place] [address], [place] [address] Jan, [facility] [address] [id number] [address] [place] [address], [place] [address] Dec, [facility] [address] [id number] [address] [place] [address], [place] [address] Dec, [facility] [address] [id number] [address] [place] [address], [place] [address] Dec, [facility] [address] [id number] [address] [place] [address], [place] [address] Nov, [facility] [address] [id number] [address] [place] [address], [place] [address] Nov, [facility] [address] [id number] [address] [place] [address], [place] [address] Nov, [facility] [address] [id number] [address] [place] [address], [place] [address] Nov, [facility] [address] [id number] [address] [place] [address], [place] [address] Nov, [facility] [address] [id number] [address] [place] [address], [place] [address] Nov, [facility] [address] [id number] [address] [place] [address], [place] [address] Oct, [facility] [address] [id number] [address] [place] [address], [place] [address] Oct, [facility] [address] [id number] [address] [place] [address], [place] [address] Oct, [facility] [address] [id number] [address] [place] [address], [place] [address] Oct, [facility] [address] [id number] [address] [place] [address], [place] [address] Sep, [facility] [address] [id number] [address] [place] [address], [place] [address] Sep, [facility] [address] [id number] [address] [place] [address], [place] [address] Sep, [facility] [address] [id number] [address] [place] [address], [place] [address] Sep, [facility] [address] [id number] [address] [place] [address], [place] [address] Aug, [facility] [address] [id number] [address] [place] [address], [place] [address] 24 Jul, 2012 [facility] [address] [id number] [address] [place] [address], [place] [address] Jul, [facility] [address] [id number] [address] [place] [address], [place] [address] Jul, [facility] [address] [id number] [address] [place] [address], [place] [address] Jun, [facility] [address] [id number] [address] [place] [address], [place] [address] Jun, [facility] [address] [id number] [address] [place] [address], [place] [address] Jun, [facility] [address] [id number] [address] [place] [address], [place] [address] May, [facility] [address] [id number] [address] [place] [address], [place] [address] May, [facility] [address] [id number] [address] [place] [address], [place] [address] Apr, [facility] [address] [id number] [address] [place] [address], [place] [address] Apr, [facility] [address] [id number] [address] [place] [address], [place] [address] Apr, [facility] [address] [id number] [address] [place] [address], [place] [address] Apr, [facility] [address] [id number] [address] [place] [address], [place] [address] March, [facility] [address] [id number] [address] [place] [address], [place] [address] March, [facility] [address] [id number] [address] [place] [address], [place] [address] March, [facility] [address] [id number] [address] [place] [address], [place] [address] Jan, [facility] [address] [id number] [address] [place] [address], [place] [id number] Jan, [facility] [address] [id number] [address] [place] [address], [place] [id number] Jan, [facility] [address] [id number] [address] [place] [address], [place] [id number] 16 Nov, 2011 [facility] [address] [id number] [address] [place] [address], [place] [id number] Nov, [facility] [address] [id number] [address] [place] [address], [place] [id number] Nov, [facility] [address] [id number] [address] [place] [address], [place] [address] Nov, [facility] [address] [id number] [address] [place] [address], [place] [id number] Oct, [facility] [address] [id number] [address] [place] [address], [place] [address] Oct, [facility] [address] [id number] [address] [place] [address], [place] [address] Oct, [facility] [address] [id number] [address] [place] [address], [place] [id number] Oct, [facility] [address] [id number] [address] [place] [address], [place] [id number] Oct, [facility] [address] [id number] [address] [place] [id number] Oct, [facility] [address] [facility] [id number] [address] [place] [id number] Oct, IMMUNIZATIONS No Known Immunizations SOCIAL HISTORY [...]
--- OUTSIDE RECORDS SUMMARY | 2020-04-18 19:32 | XMS REPORT ---
Author Author Carroll CUNHA Organization [facility] Address [address] [place] [address] Care Team Providers Care Wireless Sales Manager Name Role Phone JS CUNHA Unavailable PROBLEMS Type Condition ICD9-CM Code KHB98-YO Code Onset Dates Condition S tatus SNOMED Code Problem Coronary disease I25.10 Active 537 10862 Problem Arthritis M19.90 Active 5102107 Problem Gastroesophageal reflux disease, esophagitis pre sence not specified K21.9 Active 205413074 Problem Chronic kidney disease, stage IV (severe) N18.4 Active 435991980 Problem Secondary hyperparathyroidism of renal origin N25. 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 665882214 Problem Chronic systolic (congestive) heart failure I50.22 Active 444281219 Problem Essential hypertension I10 Active 35536541 Problem Anxiety F41.9 Active 80588313 Problem Amputated left leg Z89.612 Active 1 [id number] Problem Phantom limb pain G54.6 Active 57 [id number] Problem Diabetes E11.9 Active 574386553 ALLERGIES No Information ENCOUNTERS Encounter Location Date Diagnosis [facility] [address] [facility] [id number] [address] [place] [address] Jan, [id number] [place] [address] Jan, Anxiety F41.9 [facility] [address] [facility] [id number] [address] [place] [address] Jan, Nail hypertrophy L60.2 ; 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 ; Onychomycosis B35.1 and Self-care deficit for grooming and hygiene Z74.1 [place] [address] [place] [id number] [address] [place] [address] 25 Dec, 2019 Type 2 diabetes mellitus wit h diabetic nephropathy E11.21 ; Phantom limb pain G54.6 ; Chronic kidney disease, stage IV (severe) N18.4 ; Secondary hyperparathyroidism of renal origin N25.81 ; Chronic systolic (congestive) heart failure I50.22 and Peripheral vascular disease, unspecified I73.9 [place] [address] [place] [id number] [place] [address] 17 Dec, 2019 [place] [address] [place] [id number] [place] [address] Dec, [place] [address] [place] [id number] [place] [address] Oct, Nail hypertrophy L60.2 and O nychomycosis B35.1 [place] [address] [place] [id number] [place] [address] Sep, Diabetes E11.9 ; Anxiety F41 .9 and Phantom limb pain G54.6 [place] [address] [place] [id number] [address] [place] [address] Sep, [place] [address] [place] [id number] [place] [address] Sep, [place] [address] [place] [id number] [address] [place] [address] Aug, Diarrhea, unspecified type R 19.7 [facility] [address] [place] [id number] [address] [place] [address] Aug, [facility] [address] [place] [id number] [address] [place] [address] Aug, [place] [address] [place] [id number] [address] [place] [address] Jul, Anxiety F41.9 [place] [address] [place] [id number] [address] [place] [address] May, Phantom limb pain G54.6 and Amputated left leg Z89.612 [facility] [address] [id number] [address] [place] [address] Apr, Phantom limb pain G54.6 [facility] [address] [id number] [address] [place] [address] Apr, [facility] [address] [facility] [id number] [address] [place] [address] Apr, [facility] [address] [facility] [id number] [address] [place] [address] Apr, Nail hypertrophy L60.2 and S elf-care deficit for grooming and hygiene Z74.1 [place] [address] [facility] [id number] [address] [place] [address] March, Type 2 diabetes mellitus wit h diabetic nephropathy E11.21 ; Chronic kidney disease, stage IV (severe) N18.4 ; Anxiety F41.9 and Amputated left leg Z89.612 [facility] [address] [facility] [id number] [address] [place] [address] March, Anxiety F41.9 and Transient weakness of right lower extremity R29.898 [place] [id number] [facility] [id number] [address] [place] [address] March, [facility] [address] [facility] [id number] [address] [place] [address] March, [facility] [address] [facility] [id number] [address] [place] [address] Feb, [facility] [address] [facility] [id number] [address] [place] [address] Aug, Anxiety F41.9 [facility] [address] [facility] [id number] [address] [place] [address] Aug, Medicare annual wellness vis it, initial Z00.00 ; Encounter for immunization Z23 ; Coronary disease I25.10 ; Type 2 diabetes mellitus with diabetic nephropathy E11.21 ; Chronic kidney disease, stage IV (severe) N18.4 ; Secondary hyperparathyroidism of renal origin N25.81 ; Anxiety F41.9 and Gastroesophageal reflux disease, esophagitis presence not specified K21.9 [facility] [address] [place] [id number] [address] [place] [address] Jul, Friction blister of right lo wer extremity, initial encounter S80.821A [place] [address] [address] Jul, Localized edema R60.0 ; Type 2 diabetes mellitus with diabetic nephropathy E11.21 ; Coronary disease I25.10 and Anxiety F41.9 [place] [address] [address] Jun, [place] [address] [address] March, Type 2 diabetes mellitus wit h diabetic nephropathy E11.21 ; intermediate designer current use of insulin Z79.4 ; Chronic kidney disease, stage IV (severe) N18.4 ; Secondary hyperparathyroidism of renal origin N25.81 ; Coronary disease I25.10 and Gastroesophageal reflux disease, esophagitis presence not specified K21.9 [place] [address] [address] Nov, Type 2 diabetes mellitus wit hout complications E11.9 ; Coronary disease I25.10 and Essential hypertension I10 [place] [id number] [place] [address] May, Diabetes E11.9 [place] [address] [place] [id number] [address] [place] [address] Apr, Type 2 diabetes mellitus wit hout complications E11.9 and Arthritis M19.90 [place] [address] [place] [id number] [address] [place] [address] March, Diabetes E11.9 [place] [address] [place] [id number] [address] [place] [address] March, Diabetes E11.9 [place] [address] [place] [id number] [address] [place] [address] March, [facility] [address] [id number] [address] [place] [address] Feb, Diabetes E11.9 [facility] [address] [id number] [address] [place] [address] Feb, Diabetes E11.9 [facility] [address] [id number] [address] [place] [address] Jan, [facility] [address] [id number] [address] [place] [address] Jan, Diabetes E11.9 [facility] [address] [id number] [address] [place] [address] Jan, Type 2 diabetes mellitus wit hout complications E11.9 [facility] [address] [id number] [address] [place] [address] Oct, [facility] [address] [id number] [address] [place] [address] Oct, Gastroesophageal reflux dise ase, esophagitis presence not specified K21.9 [facility] [address] [id number] [address] [place] [address] Sep, [facility] [address] [facility] [id number] [address] [place] [address] Sep, [facility] [address] [id number] [address] [place] [address] Sep, [facility] [address] [id number] [address] [place] [address] Aug, [facility] [address] [facility] [id number] [address] [place] [address] Aug, Diabetes E11.9 and Encounter for immunization Z23 [facility] [address] [id number] [address] [place] [address] Aug, [facility] [address] [id number] [address] [place] [address], [place] [address] 08 Jul, 2016 [facility] [address] [id number] [address] [place] [address], [place] [address] Jun, [facility] [address] [id number] [address] [place] [address], [place] [address] May, Diabetes E11.9 [facility] [address] [id number] [address] [place] [address], [place] [address] Apr, [facility] [address] [id number] [address] [place] [address], [place] [address] Apr, [facility] [address] [id number] [address] [place] [address], [place] [address] March, [facility] [address] [id number] [address] [place] [address], [place] [address] March, [facility] [address] [id number] [address] [place] [address], [place] [address] Feb, [facility] [address] [id number] [address] [place] [address], [place] [address] Feb, [facility] [address] [id number] [address] [place] [address], [place] [address] 18 Feb, 2016 [facility] [address] [id number] [address] [place] [address] 14 Feb, 2016 [facility] [address] [id number] [address] [place] [address], [place] [address] Feb, [facility] [address] [id number] [address] [place] [address], [place] [address] Feb, Type 2 diabetes mellitus wit hout complications E11.9 [facility] [address] [id number] [address] [place] [address], [place] [address] 08 Feb, 2016 [facility] [address] [id number] [address] [place] [address], [place] [address] Jan, [facility] [address] [id number] [address] [place] [address] Dec, Eustachian tube dysfunction H69.80 and Diabetes E11.9 [facility] [address] [facility] [id number] [address] [place] [address] Dec, [facility] [address] [facility] [id number] [address] [place] [address] Dec, [facility] [address] [address] Dec, Type 2 diabetes mellitus wit hout complications E11.9 ; 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 and Diabetes E11.9 [facility] [address] [facility] [id number] [address] Dec, [facility] [address] [address] Dec, CHF (congestive heart failur e) I50.9 [facility] [address] [place] [id number] [address] [place] [address] Nov, Diabetes E11.9 and Coronary disease I25.10 [facility] [address] [place] [id number] [address] [place] [address] Oct, [facility] [address] [place] [id number] [address] [place] [address] Aug, [facility] [address] [place] [id number] [address] [place] [address] Jul, [facility] [address] [place] [id number] [address] [place] [address] 08 Jul, 2015 DM w/o complication type II 250.00 and Spontaneous bleeding of digits 459.0 [facility] [address] [place] [id number] [address] [place] [address] Apr, [facility] [address] [place] [id number] [address] [place] [address] Apr, [facility] [address] [place] [id number] [address] [place] [address] March, CHF (congestive heart failur e) 428.0 and Coronary atherosclerosis of unspecified type of vessel, picayune or graft 414.00 [facility] [address] [id number] [address] [place] [address] March, [facility] [address] [id number] [address] [place] [address] Feb, [facility] [address] [id number] [address] [place] [address] Feb, [facility] [address] [id number] [address] [place] [address] Jan, [facility] [address] [id number] [address] [place] [address] Jan, [facility] [address] [id number] [address] [place] [address] Dec, [facility] [address] [id number] [address] [place] [address] Dec, [facility] [address] [id number] [address] [place] [address] Dec, [facility] [address] [id number] [address] [place] [address] Dec, [facility] [address] [id number] [address] [place] [address] Dec, [facility] [address] [id number] [address] [place] [address] Dec, [facility] [address] [id number] [address] [place] [address] Nov, [facility] [address] [id number] [address] [place] [address] Nov, [facility] [address] [id number] [address] [place] [address] Oct, [facility] [address] [id number] [address] [place] [address], [place] [address] Sep, [facility] [address] [id number] [address] [place] [address], [place] [address] Sep, [facility] [address] [id number] [address] [place] [address], [place] [address] Sep, [facility] [address] [id number] [address] [place] [address], [place] [address] Sep, [facility] [address] [id number] [address] [place] [address], [place] [address] Jul, [facility] [address] [id number] [address] [place] [address], [place] [address] Jul, [facility] [address] [id number] [address] [place] [address], [place] [address] Jul, [facility] [address] [id number] [address] [place] [address], [place] [address] Jul, [facility] [address] [id number] [address] [place] [address], [place] [address] Jun, [facility] [address] [id number] [address] [place] [address], [place] [address] Jun, [facility] [address] [id number] [address] [place] [address], [place] [address] Jun, [facility] [address] [id number] [address] [place] [address], [place] [address] Jun, [facility] [address] [id number] [address] [place] [address], [place] [address] Apr, [facility] [address] [id number] [address] [place] [address], [place] [address] Apr, [facility] [address] [id number] [address] [place] [address], [place] [address] Apr, [facility] [address] [id number] [address] [place] [address], [place] [address] Apr, [facility] [address] [id number] [address] [place] [address], [place] [address] Dec, [facility] [address] [id number] [address] [place] [address], [place] [address] Dec, [facility] [address] [id number] [address] [place] [address], [place] [address] Dec, [facility] [address] [id number] [address] [place] [address], [place] [address] Dec, [facility] [address] [id number] [address] [place] [address], [place] [address] Dec, [facility] [address] [id number] [address] [place] [address], [place] [address] Dec, [facility] [address] [id number] [address] [place] [address], [place] [address] Nov, [facility] [address] [id number] [address] [place] [address], [place] [address] Nov, [facility] [address] [id number] [address] [place] [address], [place] [address] Sep, [facility] [address] [id number] [address] [place] [address], [place] [address] Sep, [facility] [address] [id number] [address] [place] [address], [place] [address] Sep, [facility] [address] [id number] [address] [place] [address], [place] [address] Sep, [facility] [address] [id number] [address] [place] [address], [place] [address] Sep, [facility] [address] [id number] [address] [place] [address], [place] [address] Aug, [facility] [address] [id number] [address] [place] [address], [place] [address] Aug, [facility] [address] [id number] [address] [place] [address], [place] [address] Aug, [facility] [address] [id number] [address] [place] [address], [place] [address] Aug, [facility] [address] [id number] [address] [place] [address], [place] [address] Jul, [facility] [address] [id number] [address] [place] [address], [place] [address] Jun, [facility] [address] [id number] [address] [place] [address], [place] [address] May, [facility] [address] [id number] [address] [place] [address], [place] [address] May, [facility] [address] [id number] [address] [place] [address], [place] [address] May, [facility] [address] [id number] [address] [place] [address], [place] [address] Apr, [facility] [address] [id number] [address] [place] [address], [place] [address] Apr, [facility] [address] [id number] [address] [place] [address], [place] [address] March, [facility] [address] [id number] [address] [place] [address], [place] [address] March, [facility] [address] [id number] [address] [place] [address], [place] [address] 18 Feb, 2013 [facility] [address] [id number] [address] [place] [address], [place] [address] 15 Feb, 2013 [facility] [address] [id number] [address] [place] [address], [place] [address] Feb, [facility] [address] [id number] [address] [place] [address], [place] [address] Jan, [facility] [address] [id number] [address] [place] [address], [place] [address] Jan, [facility] [address] [id number] [address] [place] [address], [place] [address] Jan, [facility] [address] [id number] [address] [place] [address], [place] [address] Dec, [facility] [address] [id number] [address] [place] [address], [place] [address] Dec, [facility] [address] [id number] [address] [place] [address], [place] [address] Dec, [facility] [address] [id number] [address] [place] [address], [place] [address] Nov, [facility] [address] [id number] [address] [place] [address], [place] [address] Nov, [facility] [address] [id number] [address] [place] [address], [place] [address] Nov, [facility] [address] [id number] [address] [place] [address], [place] [address] Nov, [facility] [address] [id number] [address] [place] [address], [place] [address] Nov, [facility] [address] [id number] [address] [place] [address], [place] [address] Nov, [facility] [address] [id number] [address] [place] [address], [place] [address] Oct, [facility] [address] [id number] [address] [place] [address], [place] [address] Oct, [facility] [address] [id number] [address] [place] [address], [place] [address] Oct, [facility] [address] [id number] [address] [place] [address], [place] [address] Oct, [facility] [address] [id number] [address] [place] [address], [place] [address] Sep, [facility] [address] [id number] [address] [place] [address], [place] [address] Sep, [facility] [address] [id number] [address] [place] [address], [place] [address] Sep, [facility] [address] [id number] [address] [place] [address], [place] [address] Sep, [facility] [address] [id number] [address] [place] [address], [place] [address] Aug, [facility] [address] [id number] [address] [place] [address], [place] [address] 24 Jul, 2012 [facility] [address] [id number] [address] [place] [address], [place] [address] Jul, [facility] [address] [id number] [address] [place] [address], [place] [address] Jul, [facility] [address] [id number] [address] [place] [address], [place] [address] Jun, [facility] [address] [id number] [address] [place] [address], [place] [address] Jun, [facility] [address] [id number] [address] [place] [address], [place] [address] Jun, [facility] [address] [id number] [address] [place] [address], [place] [address] May, [facility] [address] [id number] [address] [place] [address], [place] [address] May, [facility] [address] [id number] [address] [place] [address], [place] [address] Apr, [facility] [address] [id number] [address] [place] [address], [place] [address] Apr, [facility] [address] [id number] [address] [place] [address], [place] [address] Apr, [facility] [address] [id number] [address] [place] [address], [place] [address] Apr, [facility] [address] [id number] [address] [place] [address], [place] [address] March, [facility] [address] [id number] [address] [place] [address], [place] [address] March, [facility] [address] [id number] [address] [place] [address], [place] [address] March, [facility] [address] [id number] [address] [place] [address], [place] [address] Jan, [facility] [address] [id number] [address] [place] [address], [place] [address] Jan, [facility] [address] [id number] [address] [place] [address], [place] [address] Jan, [facility] [address] [id number] [address] [place] [address], [place] [address] 16 Nov, 2011 [facility] [address] [id number] [address] [place] [address], [place] [address] Nov, [facility] [address] [id number] [address] [place] [address], [place] [address] Nov, [facility] [address] [id number] [address] [place] [address], [place] [address] Nov, [facility] [address] [id number] [address] [place] [address], [place] [address] Oct, [facility] [address] [id number] [address] [place] [address], [place] [address] Oct, [facility] [address] [id number] [address] [place] [address], [place] [address] Oct, [facility] [address] [id number] [address] [place] [address], [place] [address] Oct, [facility] [address] [id number] [address] [place] [address], [place] [address] Oct, [facility] [address] [id number] [address] [place] [address] Oct, [facility] [address] [facility] [id number] [address] [place] [address] Oct, IMMUNIZATIONS No Known Immunizations SOCIAL HISTORY [...]
--- OUTSIDE RECORDS SUMMARY | 2020-04-18 19:33 | XMS REPORT ---
Author Author Carroll CUNHA Organization [facility] Address [address] [place] [address] Care Team Providers Care [employer] Sh[employer] Repairer Name Role Phone JS CUNHA Unavailable PROBLEMS Type Condition ICD9-CM Code [id number] Code Onset Dates Condition S tatus SNOMED Code Problem Coronary disease I25.10 Active 537 12385 Problem Arthritis M19.90 Active 4977018 Problem Gastroesophageal reflux disease, esophagitis pre sence not specified K21.9 Active 662752520 Problem Chronic kidney disease, stage IV (severe) N18.4 Active 032669374 Problem Secondary hyperparathyroidism of renal origin N25. 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 676540239 Problem Chronic systolic (congestive) heart failure I50.22 Active 738817627 Problem Essential hypertension I10 Active 56648375 Problem Anxiety F41.9 Active 90706091 Problem Amputated left leg Z89.612 Active 1 [id number] Problem Phantom limb pain G54.6 Active 57 [id number] Problem Diabetes E11.9 Active 831648876 ALLERGIES No Information ENCOUNTERS Encounter Location Date Diagnosis [place] [id number] [place] [address] Jan, [place] [address] [place] [address] Jan, Anxiety F41.9 [place] [address] [id number] [place] [address] Jan, Nail hypertrophy L60.2 ; Nail dystrophy L60.3 ; Onychomycosis B35.1 and Self-care deficit for grooming and hygiene Z74.1 [place] [address] [address] 25 Dec, 2019 Type 2 diabetes mellitus with diabetic n ephropathy E11.21 ; Phantom limb pain G54.6 ; Chronic kidney disease, stage IV (severe) N18.4 ; Secondary hyperparathyroidism of renal origin N25.81 ; Chronic systolic (congestive) heart failure I50.22 and Peripheral vascular disease, unspecified I73.9 [place] [address] [address] 17 Dec, 2019 [place] [address] [address] Dec, [place] [address] [address] Oct, Nail hypertrophy L60.2 and Onychomycosis B35.1 [place] [address] [address] Sep, Diabetes E11.9 ; Anxiety F41.9 and Phant om limb pain G54.6 [place] [address] [address] Sep, [place] [address] [address] Sep, [place] [address] [address] Aug, Diarrhea, unspecified type R19.7 [place] [address] [address] Aug, [place] [address] [address] Aug, [place] [address] [address] Jul, Anxiety F41.9 [place] [address] [address] May, Phantom limb pain G54.6 and Amputated le ft leg Z89.612 [place] [address] [address] Apr, Phantom limb pain G54.6 [place] [address] [address] Apr, [place] [address] [address] Apr, [place] [address] [address] Apr, Nail hypertrophy L60.2 and Self-care def icit for grooming and hygiene Z74.1 [place] [address] [address] March, Type 2 diabetes mellitus with diabetic n ephropathy E11.21 ; Chronic kidney disease, stage IV (severe) N18.4 ; Anxiety F41.9 and Amputated left leg Z89.612 [place] [address] [address] March, Anxiety F41.9 and Transient weakness of right lower extremity R29.898 [place] [address] [address] March, [place] [address] [address] March, [place] [address] [address] Feb, [place] [address] [address] Aug, Anxiety F41.9 [place] [address] [address] Aug, Medicare annual wellness visit, initial Z00.00 ; Encounter for immunization Z23 ; Coronary disease I25.10 ; Type 2 diabetes mellitus with diabetic nephropathy E11.21 ; Chronic kidney disease, stage IV (severe) N18.4 ; Secondary hyperparathyroidism of renal origin N25.81 ; Anxiety F41.9 and Gastroesophageal reflux disease, esophagitis presence not specified K21.9 [place] [address] [address] Jul, Friction blister of right lower extremit y, initial encounter S80.821A [place] [address] [address] Jul, Localized edema R60.0 ; Type 2 diabetes mellitus with diabetic nephropathy E11.21 ; Coronary disease I25.10 and Anxiety F41.9 [place] [address] [address] Jun, [place] [address] [address] March, Type 2 diabetes mellitus with diabetic n ephropathy E11.21 ; USP current use of insulin Z79.4 ; Chronic kidney disease, stage IV (severe) N18.4 ; Secondary hyperparathyroidism of renal origin N25.81 ; Coronary disease I25.10 and Gastroesophageal reflux disease, esophagitis presence not specified K21.9 [place] [address] [address] Nov, Type 2 diabetes mellitus without complic ations E11.9 ; Coronary disease I25.10 and Essential hypertension I10 [place] [address] [address] May, Diabetes E11.9 [place] [address] [address] Apr, Type 2 diabetes mellitus without complic ations E11.9 and Arthritis M19.90 [place] [address] [address] March, Diabetes E11.9 [place] [address] [address] March, Diabetes E11.9 [place] [address] [address] March, [place] [address] [address] Feb, Diabetes E11.9 [place] [address] [place] [address] [place] [address] Feb, Diabetes E11.9 [facility] [id number] [place] [address] Jan, [facility] [id number] [place] [address] Jan, Diabetes E11.9 [facility] [id number] [place] [address] Jan, Type 2 diabetes mellitus without complic ations E11.9 [facility] [id number] [place] [address] Oct, [facility] [address] [address] Oct, Gastroesophageal reflux disease, esophag itis presence not specified K21.9 [facility] [address] [address] Sep, [facility] [id number] [place] [address] Sep, [facility] [address] [address] Sep, [facility] [address] [address] Aug, [facility] [address] [address] Aug, Diabetes E11.9 and Encounter for immuniz ation Z23 [facility] [id number] [place] [address] Aug, [facility] [id number] [place] [address] Jul, [facility] [address] [address] Jun, [facility] [address] [address] May, Diabetes E11.9 [facility] [id number] [place] [address] 27 Apr, 2016 [facility] [id number] [place] [address] 13 Apr, 2016 [facility] [id number] [place] [address] 24 Mar, 2016 [facility] [id number] [place] [address] March, [facility] [id number] [place] [address] Feb, [facility] [id number] [place] [address] Feb, [facility] [id number] [place] [address] Feb, [facility] [id number] [place] [address] 14 Feb, 2016 [facility] [id number] [place] [address] Feb, [facility] [id number] [place] [address] Feb, Type 2 diabetes mellitus without complic ations E11.9 [facility] [id number] [place] [address] Feb, [facility] [id number] [place] [address] Jan, [facility] [id number] [place] [address] Dec, Eustachian tube dysfunction H69.80 and D iabetes E11.9 [facility] [id number] [place] [address] Dec, [facility] [id number] [place] [address] Dec, [facility] [id number] [place] [address] Dec, Type 2 diabetes mellitus without complic ations E11.9 ; Atherosclerotic heart disease of [place] coronary artery without angina pectoris I25.10 and Diabetes E11.9 [place] [address] [address] 09 Dec, 2015 [facility] [address] [address] 05 Dec, 2015 CHF (congestive heart failure) I50.9 [place] [address] [address] Nov, Diabetes E11.9 and Coronary disease I25. 10 [place] [address] [address] Oct, [place] [address] [address] Aug, [place] [address] [address] Jul, [place] [address] [address] Jul, DM w/o complication type II 250.00 and S pontaneous bleeding of digits 459.0 [place] [address] [address] Apr, [place] [address] [address] Apr, [place] [address] [address] March, CHF (congestive heart failure) 428.0 and Coronary atherosclerosis of unspecified type of vessel, [place] or graft 414.00 [place] [address] [address] March, [place] [address] [address] Feb, [place] [address] [address] Feb, [facility] [address] [id number] [place] [address] Jan, [facility] [address] [id number] [place] [address] Jan, [facility] [address] [id number] [place] [address] Dec, [facility] [address] [id number] [place] [address] Dec, [facility] [address] [id number] [place] [address] Dec, [facility] [address] [id number] [place] [address] Dec, [facility] [address] [id number] [place] [address] Dec, [facility] [id number] [place] [address] Dec, [facility] [address] [id number] [place] [address] Nov, [facility] [id number] [place] [address] Nov, [facility] [address] [id number] [place] [address] Oct, [facility] [address] [id number] [place] [address] Sep, [facility] [address] [id number] [place] [address] Sep, [facility] [address] [id number] [place] [address] Sep, [facility] [address] [id number] [place] [address] Sep, [facility] [address] [id number] [place] [address] 18 Jul, 2014 [facility] [address] [id number] [place] [address] Jul, [facility] [address] [facility] [id number] [place] [address] Jul, [facility] [address] [facility] [id number] [place] [address] Jul, [facility] [address] [id number] [place] [address] Jun, [facility] [address] [id number] [place] [address] Jun, [facility] [address] [facility] [id number] [place] [address] Jun, [facility] [address] [id number] [place] [address] Jun, [facility] [address] [id number] [place] [address] Apr, [facility] [address] [id number] [place] [address] Apr, [facility] [address] [id number] [place] [address] Apr, [facility] [address] [id number] [place] [address] Apr, [facility] [address] [id number] [place] [address] Dec, [facility] [address] [id number] [place] [address] Dec, [facility] [address] [facility] [id number] [place] [address] Dec, [facility] [address] [id number] [place] [address] Dec, [facility] [address] [id number] [place] [address] Dec, [facility] [address] [id number] [place] [address] Dec, [facility] [address] [id number] [place] [address] Nov, [facility] [address] [id number] [place] [address] Nov, [facility] [address] [id number] [place] [address] Sep, [facility] [address] [id number] [place] [address] Sep, [facility] [address] [id number] [place] [address] Sep, [facility] [address] [id number] [place] [address] Sep, [facility] [address] [id number] [place] [address] Sep, [facility] [address] [id number] [place] [address] Aug, [facility] [address] [id number] [place] [address] Aug, [facility] [address] [id number] [place] [address] Aug, [facility] [address] [id number] [place] [address] Aug, [facility] [address] [id number] [place] [address] Jul, [facility] [address] [id number] [place] [address] Jun, [facility] [address] [id number] [place] [address] May, [facility] [address] [id number] [place] [address] May, [facility] [address] [id number] [place] [address] May, [facility] [address] [id number] [place] [address] Apr, [facility] [address] [id number] [place] [address] Apr, [facility] [address] [id number] [place] [address] March, [facility] [address] [id number] [place] [address] March, [facility] [address] [id number] [place] [address] Feb, [facility] [address] [id number] [place] [address] Feb, [facility] [address] [id number] [place] [address] Feb, [facility] [address] [id number] [place] [address] Jan, [facility] [address] [id number] [place] [address] Jan, [facility] [address] [id number] [place] [address] Jan, [facility] [address] [id number] [place] [address] Dec, [facility] [address] [id number] [place] [address] Dec, [facility] [address] [id number] [place] [address] Dec, [facility] [address] [id number] [place] [address] Nov, [facility] [address] [id number] [place] [address] Nov, [facility] [address] [id number] [place] [address] Nov, [facility] [address] [id number] [place] [address] Nov, [facility] [address] [id number] [place] [address] Nov, [facility] [address] [id number] [place] [address] Nov, [facility] [address] [id number] [place] [address] Oct, [facility] [address] [id number] [place] [address] Oct, [facility] [address] [id number] [place] [address] Oct, [facility] [address] [id number] [place] [address] Oct, [facility] [address] [id number] [place] [address] Sep, [facility] [address] [id number] [place] [address] Sep, [facility] [address] [id number] [place] [address] Sep, [facility] [address] [id number] [place] [address] Sep, [facility] [address] [id number] [place] [address] Aug, [facility] [address] [id number] [place] [address] 24 Jul, 2012 [facility] [address] [id number] [place] [address] Jul, [facility] [address] [id number] [place] [address] Jul, [facility] [address] [id number] [place] [address] Jun, [facility] [address] [id number] [place] [address] Jun, [facility] [address] [id number] [place] [address] Jun, [facility] [address] [id number] [place] [address] May, [facility] [address] [id number] [place] [address] May, [facility] [address] [id number] [place] [address] Apr, [facility] [address] [id number] [place] [address] Apr, [facility] [address] [id number] [place] [address] Apr, [facility] [address] [id number] [place] [address] Apr, [facility] [address] [id number] [place] [address] March, [facility] [address] [id number] [place] [address] March, [facility] [address] [id number] [place] [address] March, [facility] [address] [id number] [place] [address] Jan, [facility] [address] [id number] [place] [address] Jan, [facility] [address] [id number] [place] [address] Jan, [facility] [address] [id number] [place] [address] Nov, [facility] [address] [id number] [place] [address] Nov, [facility] [address] [id number] [place] [address] Nov, [facility] [address] [id number] [place] [address] Nov, [facility] [address] [id number] [place] [address] Oct, [facility] [address] [id number] [place] [address] Oct, [facility] [address] [id number] [place] [address] Oct, [facility] [address] [id number] [place] [address] Oct, [facility] [address] [id number] [place] [address] Oct, [facility] [address] [id number] [place] [address] Oct, [facility] [address] [id number] [place] [address] Oct, IMMUNIZATIONS No Known Immunizations SOCIAL HISTORY [...]
--- OUTSIDE RECORDS SUMMARY | 2020-04-18 19:33 | XMS REPORT ---
Author Author Carroll CUNHA Organization [facility] Address [address] [place] [address] Care Team Providers Care Mathematical Sciences Professor Name Role Phone JS CUNHA Unavailable PROBLEMS Type Condition ICD9-CM Code SVW13-ER Code Onset Dates Condition S tatus SNOMED Code Problem Coronary disease I25.10 Active 537 68686 Problem Arthritis M19.90 Active 7120365 Problem Gastroesophageal reflux disease, esophagitis pre sence not specified K21.9 Active 147696719 Problem Chronic kidney disease, stage IV (severe) N18.4 Active 507188807 Problem Secondary hyperparathyroidism of renal origin N25. 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 573573379 Problem Chronic systolic (congestive) heart failure I50.22 Active 432723152 Problem Essential hypertension I10 Active 80063665 Problem Anxiety F41.9 Active 74675468 Problem Amputated left leg Z89.612 Active 1 [id number] Problem Phantom limb pain G54.6 Active 57 82646079192 Problem Diabetes E11.9 Active 321580963 ALLERGIES No Information ENCOUNTERS Encounter Location Date Diagnosis [place] [id number] [place] [address] Jan, [place] [address] [place] [address] Jan, Anxiety F41.9 [place] [address] [id number] [place] [address] Jan, Nail hypertrophy L60.2 ; Nail dystrophy L60.3 ; Onychomycosis B35.1 and Self-care deficit for grooming and hygiene Z74.1 [place] [address] [address] 25 Dec, 2019 Type 2 diabetes mellitus with diabetic n ephropathy E11.21 ; Phantom limb pain G54.6 ; Chronic kidney disease, stage IV (severe) N18.4 ; Secondary hyperparathyroidism of renal origin N25.81 ; Chronic systolic (congestive) heart failure I50.22 and Peripheral vascular disease, unspecified I73.9 [place] [address] [address] 17 Dec, 2019 [place] [address] [address] Dec, [place] [address] [address] Oct, Nail hypertrophy L60.2 and Onychomycosis B35.1 [place] [address] [address] Sep, Diabetes E11.9 ; Anxiety F41.9 and Phant om limb pain G54.6 [place] [address] [address] Sep, [place] [address] [address] Sep, [place] [address] [address] Aug, Diarrhea, unspecified type R19.7 [place] [address] [address] Aug, [place] [address] [address] Aug, [place] [address] [address] Jul, Anxiety F41.9 [place] [address] [address] May, Phantom limb pain G54.6 and Amputated le ft leg Z89.612 [place] [address] [address] Apr, Phantom limb pain G54.6 [place] [address] [address] Apr, [place] [address] [address] Apr, [place] [address] [address] Apr, Nail hypertrophy L60.2 and Self-care def icit for grooming and hygiene Z74.1 [place] [address] [address] March, Type 2 diabetes mellitus with diabetic n ephropathy E11.21 ; Chronic kidney disease, stage IV (severe) N18.4 ; Anxiety F41.9 and Amputated left leg Z89.612 [place] [address] [address] March, Anxiety F41.9 and Transient weakness of right lower extremity R29.898 [place] [address] [address] March, [place] [address] [address] March, [place] [address] [address] Feb, [place] [address] [address] Aug, Anxiety F41.9 [place] [address] [address] Aug, Medicare annual wellness visit, initial Z00.00 ; Encounter for immunization Z23 ; Coronary disease I25.10 ; Type 2 diabetes mellitus with diabetic nephropathy E11.21 ; Chronic kidney disease, stage IV (severe) N18.4 ; Secondary hyperparathyroidism of renal origin N25.81 ; Anxiety F41.9 and Gastroesophageal reflux disease, esophagitis presence not specified K21.9 [place] [address] [address] Jul, Friction blister of right lower extremit y, initial encounter S80.821A [place] [address] [address] Jul, Localized edema R60.0 ; Type 2 diabetes mellitus with diabetic nephropathy E11.21 ; Coronary disease I25.10 and Anxiety F41.9 [place] [address] [address] Jun, [place] [address] [address] March, Type 2 diabetes mellitus with diabetic n ephropathy E11.21 ; FCI current use of insulin Z79.4 ; Chronic kidney disease, stage IV (severe) N18.4 ; Secondary hyperparathyroidism of renal origin N25.81 ; Coronary disease I25.10 and Gastroesophageal reflux disease, esophagitis presence not specified K21.9 [place] [address] [address] Nov, Type 2 diabetes mellitus without complic ations E11.9 ; Coronary disease I25.10 and Essential hypertension I10 [place] [address] [address] May, Diabetes E11.9 [place] [address] [address] Apr, Type 2 diabetes mellitus without complic ations E11.9 and Arthritis M19.90 [place] [address] [address] March, Diabetes E11.9 [place] [address] [address] March, Diabetes E11.9 [place] [address] [address] March, [place] [address] [address] Feb, Diabetes E11.9 [place] [address] [place] [address] [place] [address] Feb, Diabetes E11.9 [facility] [id number] [place] [address] Jan, [facility] [id number] [place] [address] Jan, Diabetes E11.9 [facility] [id number] [place] [address] Jan, Type 2 diabetes mellitus without complic ations E11.9 [facility] [id number] [place] [address] Oct, [facility] [address] [address] Oct, Gastroesophageal reflux disease, esophag itis presence not specified K21.9 [facility] [address] [address] Sep, [facility] [id number] [place] [address] Sep, [facility] [address] [address] Sep, [facility] [address] [address] Aug, [facility] [address] [address] Aug, Diabetes E11.9 and Encounter for immuniz ation Z23 [facility] [id number] [place] [address] Aug, [facility] [address] [place] [address] Jul, [facility] [address] [address] Jun, [facility] [address] [address] May, Diabetes E11.9 [facility] [id number] [place] [address] 27 Apr, 2016 [facility] [id number] [place] [address] 13 Apr, 2016 [facility] [id number] [place] [address] 24 Mar, 2016 [facility] [id number] [place] [address] March, [facility] [id number] [place] [address] Feb, [facility] [id number] [place] [address] Feb, [facility] [id number] [place] [address] Feb, [facility] [id number] [place] [address] 14 Feb, 2016 [facility] [id number] [place] [address] Feb, [facility] [id number] [place] [address] Feb, Type 2 diabetes mellitus without complic ations E11.9 [facility] [id number] [place] [address] Feb, [facility] [id number] [place] [address] Jan, [facility] [id number] [place] [address] Dec, Eustachian tube dysfunction H69.80 and D iabetes E11.9 [facility] [id number] [place] [address] Dec, [facility] [id number] [place] [address] Dec, [facility] [id number] [place] [address] Dec, Type 2 diabetes mellitus without complic ations E11.9 ; Atherosclerotic heart disease of [place] coronary artery without angina pectoris I25.10 and Diabetes E11.9 [place] [address] [address] 09 Dec, 2015 [facility] [address] [address] 05 Dec, 2015 CHF (congestive heart failure) I50.9 [place] [address] [address] Nov, Diabetes E11.9 and Coronary disease I25. 10 [place] [address] [address] Oct, [place] [address] [address] Aug, [place] [address] [address] Jul, [place] [address] [address] Jul, DM w/o complication type II 250.00 and S pontaneous bleeding of digits 459.0 [place] [address] [address] Apr, [place] [address] [address] Apr, [place] [address] [address] March, CHF (congestive heart failure) 428.0 and Coronary atherosclerosis of unspecified type of vessel, gamb[place] or graft 414.00 [place] [address] [address] March, [place] [address] [address] Feb, [place] [address] [address] Feb, [facility] [address] [id number] [place] [address] Jan, [facility] [address] [id number] [place] [address] Jan, [facility] [address] [id number] [place] [address] Dec, [facility] [address] [id number] [place] [address] Dec, [facility] [address] [id number] [place] [address] Dec, [facility] [address] [id number] [place] [address] Dec, [facility] [address] [id number] [place] [address] Dec, [facility] [id number] [place] [address] Dec, [facility] [address] [id number] [place] [address] Nov, [facility] [id number] [place] [address] Nov, [facility] [address] [id number] [place] [address] Oct, [facility] [address] [id number] [place] [address] Sep, [facility] [address] [id number] [place] [address] Sep, [facility] [address] [id number] [place] [address] Sep, [facility] [address] [id number] [place] [address] Sep, [facility] [address] [id number] [place] [address] 18 Jul, 2014 [facility] [address] [id number] [place] [address] Jul, [facility] [address] [facility] [id number] [place] [address] Jul, [facility] [address] [facility] [id number] [place] [address] Jul, [facility] [address] [id number] [place] [address] Jun, [facility] [address] [id number] [place] [address] Jun, [facility] [address] [facility] [id number] [place] [address] Jun, [facility] [address] [id number] [place] [address] Jun, [facility] [address] [id number] [place] [address] Apr, [facility] [address] [id number] [place] [address] Apr, [facility] [address] [id number] [place] [address] Apr, [facility] [address] [id number] [place] [address] Apr, [facility] [address] [id number] [place] [address] Dec, [facility] [address] [id number] [place] [address] Dec, [facility] [address] [facility] [id number] [place] [address] Dec, [facility] [address] [id number] [place] [address] Dec, [facility] [address] [id number] [place] [address] Dec, [facility] [address] [id number] [place] [address] Dec, [facility] [address] [id number] [place] [address] Nov, [facility] [address] [id number] [place] [address] Nov, [facility] [address] [id number] [place] [address] Sep, [facility] [address] [id number] [place] [address] Sep, [facility] [address] [id number] [place] [address] Sep, [facility] [address] [id number] [place] [address] Sep, [facility] [address] [id number] [place] [address] Sep, [facility] [address] [id number] [place] [address] Aug, [facility] [address] [id number] [place] [address] Aug, [facility] [address] [id number] [place] [address] Aug, [facility] [address] [id number] [place] [address] Aug, [facility] [address] [id number] [place] [address] Jul, [facility] [address] [id number] [place] [address] Jun, [facility] [address] [id number] [place] [address] May, [facility] [address] [id number] [place] [address] May, [facility] [address] [id number] [place] [address] May, [facility] [address] [id number] [place] [address] Apr, [facility] [address] [id number] [facility] [address] Apr, [facility] [address] [id number] [facility] [address] March, [facility] [address] [id number] [place] [address] March, [facility] [address] [id number] [place] [address] Feb, [facility] [address] [id number] [facility] [address] Feb, [facility] [address] [id number] [place] [address] Feb, [facility] [address] [id number] [place] [address] Jan, [facility] [address] [id number] [place] [address] Jan, [facility] [address] [id number] [place] [address] Jan, [facility] [address] [id number] [place] [address] Dec, [facility] [address] [id number] [place] [address] Dec, [facility] [address] [id number] [place] [address] Dec, [facility] [address] [id number] [place] [address] Nov, [facility] [address] [id number] [place] [address] Nov, [facility] [address] [id number] [place] [address] Nov, [facility] [address] [id number] [place] [address] Nov, [facility] [address] [id number] [place] [address] Nov, [facility] [address] [id number] [place] [address] Nov, [facility] [address] [id number] [place] [address] Oct, [facility] [address] [id number] [place] [address] Oct, [facility] [address] [id number] [place] [address] Oct, [facility] [address] [id number] [place] [address] Oct, [facility] [address] [id number] [place] [address] Sep, [facility] [address] [id number] [place] [address] Sep, [facility] [address] [id number] [place] [address] Sep, [facility] [address] [id number] [place] [address] Sep, [facility] [address] [id number] [place] [address] Aug, [facility] [address] [id number] [place] [address] 24 Jul, 2012 [facility] [address] [id number] [place] [address] Jul, [facility] [address] [id number] [place] [address] Jul, [facility] [address] [id number] [place] [address] Jun, [facility] [address] [id number] [place] [address] Jun, [facility] [address] [id number] [place] [address] Jun, [facility] [address] [id number] [place] [address] May, [facility] [address] [id number] [place] [address] May, [facility] [address] [id number] [place] [address] Apr, [facility] [address] [id number] [place] [address] Apr, [facility] [address] [id number] [place] [address] Apr, [facility] [address] [id number] [place] [address] Apr, [facility] [address] [id number] [place] [address] March, [facility] [address] [id number] [place] [address] March, [facility] [address] [id number] [place] [address] March, [facility] [address] [id number] [place] [address] Jan, [facility] [address] [id number] [place] [address] Jan, [facility] [address] [id number] [place] [address] Jan, [facility] [address] [id number] [place] [address] Nov, [facility] [address] [id number] [place] [address] Nov, [facility] [address] [id number] [place] [address] Nov, [facility] [address] [id number] [place] [address] Nov, [facility] [address] [id number] [place] [address] Oct, [facility] [address] [id number] [place] [address] Oct, [facility] [address] [id number] [place] [address] Oct, [facility] [address] [id number] [place] [address] Oct, [facility] [address] [id number] [place] [address] Oct, [facility] [address] [id number] [place] [address] Oct, [facility] [address] [id number] [place] [address] Oct, IMMUNIZATIONS No Known Immunizations SOCIAL HISTORY [...]
--- OUTSIDE RECORDS SUMMARY | 2020-04-18 19:33 | XMS REPORT ---
Author Author Carroll CUNHA Organization [facility] Address [address] [place] [address] Care Team Providers Care Transmission Engineer Name Role Phone JS CUNHA Unavailable PROBLEMS Type Condition ICD9-CM Code ZHS10-AM Code Onset Dates Condition S tatus SNOMED Code Problem Coronary disease I25.10 Active 537 05710 Problem Arthritis M19.90 Active 5852366 Problem Gastroesophageal reflux disease, esophagitis pre sence not specified K21.9 Active 020704080 Problem Chronic kidney disease, stage IV (severe) N18.4 Active 931405416 Problem Secondary hyperparathyroidism of renal origin N25. 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 [id number] [address] [place] [address] Jan, [id number] [place] [phone] 17 Jan, 2020 Anxiety F41.9 [facility] [address] 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 ; Onychomycosis B35.1 and Self-care deficit for grooming and hygiene Z74.1 [place] [address] [place] [id number] [address] [place] [address] 25 Dec, 2019 Type 2 diabetes mellitus wit h diabetic nephropathy E11.21 ; Phantom limb pain G54.6 ; Chronic kidney disease, stage IV (severe) N18.4 ; Secondary hyperparathyroidism of renal origin N25.81 ; Chronic systolic (congestive) heart failure I50.22 and Peripheral vascular disease, unspecified I73.9 [place] [address] [place] [id number] [place] [address] 17 Dec, 2019 [place] [address] [place] [id number] [place] [address] Dec, [place] [address] [place] [id number] [place] [address] Oct, Nail hypertrophy L60.2 and O nychomycosis B35.1 [place] [address] [place] [id number] [place] [address] Sep, Diabetes E11.9 ; Anxiety F41 .9 and Phantom limb pain G54.6 [place] [address] [place] [id number] [address] [place] [phone] Sep, [place] [address] [place] [id number] [place] [address] Sep, [place] [address] [place] [id number] [address] [place] [address] Aug, Diarrhea, unspecified type R 19.7 [facility] [address] [place] [id number] [address] [place] [address] Aug, [facility] [address] [place] [id number] [address] [place] [address] Aug, [place] [address] [place] [id number] [address] [place] [address] Jul, Anxiety F41.9 [place] [address] [place] [id number] [address] [place] [address] May, Phantom limb pain G54.6 and Amputated left leg Z89.612 [facility] [address] [id number] [address] [place] [address] Apr, Phantom limb pain G54.6 [facility] [address] [id number] [address] [place] [address] Apr, [facility] [address] [facility] [id number] [address] [place] [address] Apr, [facility] [address] [facility] [id number] [address] [place] [address] Apr, Nail hypertrophy L60.2 and S elf-care deficit for grooming and hygiene Z74.1 [place] [address] [facility] [id number] [address] [place] [address] March, Type 2 diabetes mellitus wit h diabetic nephropathy E11.21 ; Chronic kidney disease, stage IV (severe) N18.4 ; Anxiety F41.9 and Amputated left leg Z89.612 [facility] [address] [facility] [id number] [address] [place] [address] March, Anxiety F41.9 and Transient weakness of right lower extremity R29.898 [place] [id number] [facility] [id number] [address] [place] [address] March, [facility] [address] [facility] [id number] [address] [place] [phone] March, [facility] [address] [facility] [id number] [address] [place] [address] Feb, [facility] [address] [facility] [id number] [address] [place] [phone] Aug, Anxiety F41.9 [facility] [address] [facility] [id number] [address] [place] [address] Aug, Medicare annual wellness vis it, initial Z00.00 ; Encounter for immunization Z23 ; Coronary disease I25.10 ; Type 2 diabetes mellitus with diabetic nephropathy E11.21 ; Chronic kidney disease, stage IV (severe) N18.4 ; Secondary hyperparathyroidism of renal origin N25.81 ; Anxiety F41.9 and Gastroesophageal reflux disease, esophagitis presence not specified K21.9 [facility] [address] [place] [id number] [address] [place] [address] Jul, Friction blister of right lo wer extremity, initial encounter S80.821A [place] [address] [address] Jul, Localized edema R60.0 ; Type 2 diabetes mellitus with diabetic nephropathy E11.21 ; Coronary disease I25.10 and Anxiety F41.9 [place] [address] [address] Jun, [place] [address] [address] March, Type 2 diabetes mellitus wit h diabetic nephropathy E11.21 ; 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 Z79.4 ; Chronic kidney disease, stage IV (severe) N18.4 ; Secondary hyperparathyroidism of renal origin N25.81 ; Coronary disease I25.10 and Gastroesophageal reflux disease, esophagitis presence not specified K21.9 [place] [address] [address] Nov, Type 2 diabetes mellitus wit hout complications E11.9 ; Coronary disease I25.10 and Essential hypertension I10 [place] [id number] [place] [address] May, Diabetes E11.9 [place] [address] [place] [id number] [address] [place] [address] Apr, Type 2 diabetes mellitus wit hout complications E11.9 and Arthritis M19.90 [place] [address] [place] [id number] [address] [place] [address] March, Diabetes E11.9 [place] [address] [place] [id number] [address] [place] [address] March, Diabetes E11.9 [place] [address] [place] [id number] [address] [place] [address] March, [facility] [address] [id number] [address] [place] [address] Feb, Diabetes E11.9 [facility] [address] [id number] [address] [place] [address] Feb, Diabetes E11.9 [facility] [address] [id number] [address] [place] [address] Jan, [facility] [address] [id number] [address] [place] [address] Jan, Diabetes E11.9 [facility] [address] [id number] [address] [place] [phone] Jan, Type 2 diabetes mellitus wit hout complications E11.9 [facility] [address] [id number] [address] [place] [phone] Oct, [facility] [address] [id number] [address] [place] [id number] Oct, Gastroesophageal reflux dise ase, esophagitis presence not specified K21.9 [facility] [address] [id number] [address] [place] [id number] Sep, [facility] [address] [facility] [id number] [address] [place] [phone] Sep, [facility] [address] [id number] [address] [place] [phone] Sep, [facility] [address] [id number] [address] [place] [phone] Aug, [facility] [address] [facility] [id number] [address] [place] [phone] Aug, Diabetes E11.9 and Encounter for immunization Z23 [facility] [address] [id number] [address] [place] [phone] Aug, [facility] [address] [id number] [address] [place] [address], [place] [address] 08 Jul, 2016 [facility] [address] [id number] [address] [place] [address], [place] [address] Jun, [facility] [address] [id number] [address] [place] [address], [place] [address] May, Diabetes E11.9 [facility] [address] [id number] [address] [place] [address], [place] [address] Apr, [facility] [address] [id number] [address] [place] [address], [place] [address] Apr, [facility] [address] [id number] [address] [place] [address], [place] [address] March, [facility] [address] [id number] [address] [place] [address], [place] [address] March, [facility] [address] [id number] [address] [place] [address], [place] [address] Feb, [facility] [address] [id number] [address] [place] [address], [place] [address] Feb, [facility] [address] [id number] [address] [place] [address], [place] [address] 18 Feb, 2016 [facility] [address] [id number] [address] [place] [phone] 14 Feb, 2016 [facility] [address] [id number] [address] [place] [address], [place] [address] Feb, [facility] [address] [id number] [address] [place] [address], [place] [address] Feb, Type 2 diabetes mellitus wit hout complications E11.9 [facility] [address] [id number] [address] [place] [address], [place] [address] 08 Feb, 2016 [facility] [address] [id number] [address] [place] [address], [place] [address] Jan, [facility] [address] [id number] [address] [place] [address] Dec, Eustachian tube dysfunction H69.80 and Diabetes E11.9 [facility] [address] [facility] [id number] [address] [place] [phone] Dec, [facility] [address] [facility] [id number] [address] [place] [phone] Dec, [facility] [address] [address] Dec, Type 2 diabetes mellitus wit hout complications E11.9 ; Atherosclerotic heart disease of [place] coronary artery without angina pectoris I25.10 and Diabetes E11.9 [facility] [address] [facility] [id number] [address] [address] Dec, [facility] [address] [address] Dec, CHF (congestive heart failur e) I50.9 [facility] [address] [place] [id number] [address] [place] [address] Nov, Diabetes E11.9 and Coronary disease I25.10 [facility] [address] [place] [id number] [address] [place] [phone] Oct, [facility] [address] [place] [id number] [address] [place] [address] Aug, [facility] [address] [place] [id number] [address] [place] [address] Jul, [facility] [address] [place] [id number] [address] [place] [address] 08 Jul, 2015 DM w/o complication type II 250.00 and Spontaneous bleeding of digits 459.0 [facility] [address] [place] [id number] [address] [place] [address] Apr, [facility] [address] [place] [id number] [address] [place] [address] Apr, [facility] [address] [place] [id number] [address] [place] [address] March, CHF (congestive heart failur e) 428.0 and Coronary atherosclerosis of unspecified type of vessel, [place] or graft 414.00 [facility] [address] [id number] [address] [place] [address] March, [facility] [address] [id number] [address] [place] [id number] Feb, [facility] [address] [id number] [address] [place] [address] Feb, [facility] [address] [id number] [address] [place] [id number] Jan, [facility] [address] [id number] [address] [place] [phone] Jan, [facility] [address] [id number] [address] [place] [phone] Dec, [facility] [address] [id number] [address] [place] [address] Dec, [facility] [address] [id number] [address] [place] [phone] Dec, [facility] [address] [id number] [address] [place] [phone] Dec, [facility] [address] [id number] [address] [place] [address] Dec, [facility] [address] [id number] [address] [place] [phone] Dec, [facility] [address] [id number] [address] [place] [phone] Nov, [facility] [address] [id number] [address] [place] [phone] Nov, [facility] [address] [id number] [address] [place] [phone] Oct, [facility] [address] [id number] [address] [place] [address], [place] [address] Sep, [facility] [address] [id number] [address] [place] [address], [place] [address] Sep, [facility] [address] [id number] [address] [place] [address], [place] [address] Sep, [facility] [address] [id number] [address] [place] [address], [place] [address] Sep, [facility] [address] [id number] [address] [place] [address], [place] [address] Jul, [facility] [address] [id number] [address] [place] [address], [place] [address] Jul, [facility] [address] [id number] [address] [place] [address], [place] [address] Jul, [facility] [address] [id number] [address] [place] [address], [place] [address] Jul, [facility] [address] [id number] [address] [place] [address], [place] [address] Jun, [facility] [address] [id number] [address] [place] [address], [place] [address] Jun, [facility] [address] [id number] [address] [place] [address], [place] [address] Jun, [facility] [address] [id number] [address] [place] [address], [place] [address] Jun, [facility] [address] [id number] [address] [place] [address], [place] [address] Apr, [facility] [address] [id number] [address] [place] [address], [place] [address] Apr, [facility] [address] [id number] [address] [place] [address], [place] [address] Apr, [facility] [address] [id number] [address] [place] [address], [place] [address] Apr, [facility] [address] [id number] [address] [place] [address], [place] [address] Dec, [facility] [address] [id number] [address] [place] [address], [place] [address] Dec, [facility] [address] [id number] [address] [place] [address], [place] [address] Dec, [facility] [address] [id number] [address] [place] [address], [place] [address] Dec, [facility] [address] [id number] [address] [place] [address], [place] [address] Dec, [facility] [address] [id number] [address] [place] [address], [place] [address] Dec, [facility] [address] [id number] [address] [place] [address], [place] [address] Nov, [facility] [address] [id number] [address] [place] [address], [place] [address] Nov, [facility] [address] [id number] [address] [place] [address], [place] [address] Sep, [facility] [address] [id number] [address] [place] [address], [place] [address] Sep, [facility] [address] [id number] [address] [place] [address], [place] [address] Sep, [facility] [address] [id number] [address] [place] [address], [place] [address] Sep, [facility] [address] [id number] [address] [place] [address], [place] [address] Sep, [facility] [address] [id number] [address] [place] [address], [place] [address] Aug, [facility] [address] [id number] [address] [place] [address], [place] [address] Aug, [facility] [address] [id number] [address] [place] [address], [place] [address] Aug, [facility] [address] [id number] [address] [place] [address], [place] [address] Aug, [facility] [address] [id number] [address] [place] [address], [place] [address] Jul, [facility] [address] [id number] [address] [place] [address], [place] [address] Jun, [facility] [address] [id number] [address] [place] [address], [place] [address] May, [facility] [address] [id number] [address] [place] [address], [place] [address] May, [facility] [address] [id number] [address] [place] [address], [place] [address] May, [facility] [address] [id number] [address] [place] [address], [place] [address] Apr, [facility] [address] [id number] [address] [place] [address], [place] [address] Apr, [facility] [address] [id number] [address] [place] [address], [place] [address] March, [facility] [address] [id number] [address] [place] [address], [place] [address] March, [facility] [address] [id number] [address] [place] [address], [place] [address] 18 Feb, 2013 [facility] [address] [id number] [address] [place] [address], [place] [address] 15 Feb, 2013 [facility] [address] [id number] [address] [place] [address], [place] [address] Feb, [facility] [address] [id number] [address] [place] [address], [place] [address] Jan, [facility] [address] [id number] [address] [place] [address], [place] [address] Jan, [facility] [address] [id number] [address] [place] [address], [place] [address] Jan, [facility] [address] [id number] [address] [place] [address], [place] [address] Dec, [facility] [address] [id number] [address] [place] [address], [place] [address] Dec, [facility] [address] [id number] [address] [place] [address], [place] [address] Dec, [facility] [address] [id number] [address] [place] [address], [place] [address] Nov, [facility] [address] [id number] [address] [place] [address], [place] [address] Nov, [facility] [address] [id number] [address] [place] [address], [place] [address] Nov, [facility] [address] [id number] [address] [place] [address], [place] [address] Nov, [facility] [address] [id number] [address] [place] [address], [place] [address] Nov, [facility] [address] [id number] [address] [place] [address], [place] [address] Nov, [facility] [address] [id number] [address] [place] [address], [place] [address] Oct, [facility] [address] [id number] [address] [place] [address], [place] [address] Oct, [facility] [address] [id number] [address] [place] [address], [place] [address] Oct, [facility] [address] [id number] [address] [place] [address], [place] [address] Oct, [facility] [address] [id number] [address] [place] [address], [place] [address] Sep, [facility] [address] [id number] [address] [place] [address], [place] [address] Sep, [facility] [address] [id number] [address] [place] [address], [place] [address] Sep, [facility] [address] [id number] [address] [place] [address], [place] [address] Sep, [facility] [address] [id number] [address] [place] [address], [place] [address] Aug, [facility] [address] [id number] [address] [place] [address], [place] [address] 24 Jul, 2012 [facility] [address] [id number] [address] [place] [address], [place] [address] Jul, [facility] [address] [id number] [address] [place] [address], [place] [address] Jul, [facility] [address] [id number] [address] [place] [address], [place] [address] Jun, [facility] [address] [id number] [address] [place] [address], [place] [address] Jun, [facility] [address] [id number] [address] [place] [address], [place] [address] Jun, [facility] [address] [id number] [address] [place] [address], [place] [address] May, [facility] [address] [id number] [address] [place] [address], [place] [address] May, [facility] [address] [id number] [address] [place] [address], [place] [address] Apr, [facility] [address] [id number] [address] [place] [address], [place] [address] Apr, [facility] [address] [id number] [address] [place] [address], [place] [address] Apr, [facility] [address] [id number] [address] [place] [address], [place] [address] Apr, [facility] [address] [id number] [address] [place] [address], [place] [address] March, [facility] [address] [id number] [address] [place] [address], [place] [address] March, [facility] [address] [id number] [address] [place] [address], [place] [address] March, [facility] [address] [id number] [address] [place] [address], [place] [address] Jan, [facility] [address] [id number] [address] [place] [address], [place] [address] Jan, [facility] [address] [id number] [address] [place] [address], [place] [address] Jan, [facility] [address] [id number] [address] [place] [address], [place] [address] 16 Nov, 2011 [facility] [address] [id number] [address] [place] [address], [place] [address] Nov, [facility] [address] [id number] [address] [place] [address], [place] [address] Nov, [facility] [address] [id number] [address] [place] [address], [place] [address] Nov, [facility] [address] [id number] [address] [place] [address], [place] [address] Oct, [facility] [address] [id number] [address] [place] [address], [place] [address] Oct, [facility] [address] [id number] [address] [place] [address], [place] [address] Oct, [facility] [address] [id number] [address] [place] [address], [place] [address] Oct, [facility] [address] [id number] [address] [place] [address], [place] [address] Oct, [facility] [address] [id number] [address] [place] [address] Oct, [facility] [address] [facility] [id number] [address] [place] [address] Oct, IMMUNIZATIONS No Known Immunizations SOCIAL HISTORY Never Assessed REASON FOR VISIT PLAN OF CARE VITAL SIGNS Height 69 in 2013-03-22 Weight 219.44 lbs 2013-03-22 Temperature 98.4 degrees Fahrenheit 2013-03-22 Heart Rate 80 bpm 2013-03-22 Respiratory Rate 20 2013-03-22 Blood pressure systolic 120 mmHg 2013-03-22 Blood pressure diastolic 70 mmHg 2013-03-22 MEDICATIONS Unknown Medications RESULTS No Results PROCEDURES [...]
--- OUTSIDE RECORDS SUMMARY | 2020-04-18 19:33 | XMS REPORT ---
Author Author Carroll CUNHA Organization [facility] Address [address] [place] [address] Care Team Providers Care Release And Technical Records Clerk Name Role Phone JS CUNHA Unavailable PROBLEMS Type Condition ICD9-CM Code UFG92-GR Code Onset Dates Condition S tatus SNOMED Code Problem Coronary disease I25.10 Active 537 52997 Problem Arthritis M19.90 Active 6775105 Problem Gastroesophageal reflux disease, esophagitis pre sence not specified K21.9 Active 921047429 Problem Chronic kidney disease, stage IV (severe) N18.4 Active 418717198 Problem Secondary hyperparathyroidism of renal origin N25. 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 452584101 Problem Chronic systolic (congestive) heart failure I50.22 Active 465474101 Problem Essential hypertension I10 Active 84086793 Problem Anxiety F41.9 Active 61851510 Problem Amputated left leg Z89.612 Active 1 [id number] Problem Phantom limb pain G54.6 Active 57 [id number] Problem Diabetes E11.9 Active 949468617 ALLERGIES No Information ENCOUNTERS Encounter Location Date Diagnosis [place] [id number] [place] [address] Jan, [place] [place] [address] Jan, Anxiety F41.9 [place] [address] [id number] [place] [address] Jan, Nail hypertrophy L60.2 ; Nail dystrophy L60.3 ; Onychomycosis B35.1 and Self-care deficit for grooming and hygiene Z74.1 [place] [address] [address] 25 Dec, 2019 Type 2 diabetes mellitus with diabetic n ephropathy E11.21 ; Phantom limb pain G54.6 ; Chronic kidney disease, stage IV (severe) N18.4 ; Secondary hyperparathyroidism of renal origin N25.81 ; Chronic systolic (congestive) heart failure I50.22 and Peripheral vascular disease, unspecified I73.9 [place] [address] [address] 17 Dec, 2019 [place] [address] [address] Dec, [place] [address] [address] Oct, Nail hypertrophy L60.2 and Onychomycosis B35.1 [place] [address] [address] Sep, Diabetes E11.9 ; Anxiety F41.9 and Phant om limb pain G54.6 [place] [address] [address] Sep, [place] [address] [address] Sep, [place] [address] [address] Aug, Diarrhea, unspecified type R19.7 [place] [address] [address] Aug, [place] [address] [address] Aug, [place] [address] [address] Jul, Anxiety F41.9 [place] [address] [address] May, Phantom limb pain G54.6 and Amputated le ft leg Z89.612 [place] [address] [address] Apr, Phantom limb pain G54.6 [place] [address] [address] Apr, [place] [address] [address] Apr, [place] [address] [address] Apr, Nail hypertrophy L60.2 and Self-care def icit for grooming and hygiene Z74.1 [place] [address] [address] March, Type 2 diabetes mellitus with diabetic n ephropathy E11.21 ; Chronic kidney disease, stage IV (severe) N18.4 ; Anxiety F41.9 and Amputated left leg Z89.612 [place] [address] [address] March, Anxiety F41.9 and Transient weakness of right lower extremity R29.898 [place] [address] [address] March, [place] [address] [address] March, [place] [address] [address] Feb, [place] [address] [address] Aug, Anxiety F41.9 [place] [address] [address] Aug, Medicare annual wellness visit, initial Z00.00 ; Encounter for immunization Z23 ; Coronary disease I25.10 ; Type 2 diabetes mellitus with diabetic nephropathy E11.21 ; Chronic kidney disease, stage IV (severe) N18.4 ; Secondary hyperparathyroidism of renal origin N25.81 ; Anxiety F41.9 and Gastroesophageal reflux disease, esophagitis presence not specified K21.9 [place] [address] [address] Jul, Friction blister of right lower extremit y, initial encounter S80.821A [place] [address] [address] Jul, Localized edema R60.0 ; Type 2 diabetes mellitus with diabetic nephropathy E11.21 ; Coronary disease I25.10 and Anxiety F41.9 [place] [address] [address] Jun, [place] [address] [address] March, Type 2 diabetes mellitus with diabetic n ephropathy E11.21 ; group home current use of insulin Z79.4 ; Chronic kidney disease, stage IV (severe) N18.4 ; Secondary hyperparathyroidism of renal origin N25.81 ; Coronary disease I25.10 and Gastroesophageal reflux disease, esophagitis presence not specified K21.9 [place] [address] [address] Nov, Type 2 diabetes mellitus without complic ations E11.9 ; Coronary disease I25.10 and Essential hypertension I10 [place] [address] [address] May, Diabetes E11.9 [place] [address] [address] Apr, Type 2 diabetes mellitus without complic ations E11.9 and Arthritis M19.90 [place] [address] [address] March, Diabetes E11.9 [place] [address] [address] March, Diabetes E11.9 [place] [address] [address] March, [place] [address] [address] Feb, Diabetes E11.9 [place] [address] [place] [place] [address] Feb, Diabetes E11.9 [facility] [id number] [place] [address] Jan, [facility] [id number] [place] [address] Jan, Diabetes E11.9 [facility] [id number] [place] [address] Jan, Type 2 diabetes mellitus without complic ations E11.9 [facility] [id number] [place] [address] Oct, [facility] [address] [address] Oct, Gastroesophageal reflux disease, esophag itis presence not specified K21.9 [facility] [address] [address] Sep, [facility] [id number] [place] [address] Sep, [facility] [address] [address] Sep, [facility] [address] [address] Aug, [facility] [address] [address] Aug, Diabetes E11.9 and Encounter for immuniz ation Z23 [facility] [id number] [place] [address] Aug, [facility] [id number] [place] [address] Jul, [facility] [address] [address] Jun, [facility] [address] [address] May, Diabetes E11.9 [facility] [id number] [place] [address] 27 Apr, 2016 [facility] [id number] [place] [address] 13 Apr, 2016 [facility] [id number] [place] [address] 24 Mar, 2016 [facility] [id number] [place] [address] March, [facility] [id number] [place] [address] Feb, [facility] [id number] [place] [address] Feb, [facility] [id number] [place] [address] Feb, [facility] [id number] [place] [address] 14 Feb, 2016 [facility] [id number] [place] [address] Feb, [facility] [id number] [place] [address] Feb, Type 2 diabetes mellitus without complic ations E11.9 [facility] [id number] [place] [address] Feb, [facility] [id number] [place] [address] Jan, [facility] [id number] [place] [address] Dec, Eustachian tube dysfunction H69.80 and D iabetes E11.9 [facility] [id number] [place] [address] Dec, [facility] [id number] [place] [address] Dec, [facility] [id number] [place] [address] Dec, Type 2 diabetes mellitus without complic ations E11.9 ; 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 10 [place] [address] [address] Oct, [place] [address] [address] Aug, [place] [address] [address] Jul, [place] [address] [address] Jul, DM w/o complication type II 250.00 and S pontaneous bleeding of digits 459.0 [place] [address] [address] Apr, [place] [address] [address] Apr, [place] [address] [address] March, CHF (congestive heart failure) 428.0 and Coronary atherosclerosis of unspecified type of vessel, rosebud or graft 414.00 [place] [address] [address] March, [place] [address] [address] Feb, [place] [address] [address] Feb, [facility] [address] [id number] [place] [address] Jan, [facility] [address] [id number] [place] [address] Jan, [facility] [address] [id number] [place] [address] Dec, [facility] [address] [id number] [place] [address] Dec, [facility] [address] [id number] [place] [address] Dec, [facility] [address] [id number] [place] [address] Dec, [facility] [address] [id number] [place] [address] Dec, [facility] [id number] [place] [address] Dec, [facility] [address] [id number] [place] [address] Nov, [facility] [id number] [place] [address] Nov, [facility] [address] [id number] [place] [address] Oct, [facility] [address] [id number] [place] [address] Sep, [facility] [address] [id number] [place] [address] Sep, [facility] [address] [id number] [place] [address] Sep, [facility] [address] [id number] [place] [address] Sep, [facility] [address] [id number] [place] [address] 18 Jul, 2014 [facility] [address] [id number] [place] [address] Jul, [facility] [address] [facility] [id number] [place] [address] Jul, [facility] [address] [facility] [id number] [place] [address] Jul, [facility] [address] [id number] [place] [address] Jun, [facility] [address] [id number] [place] [address] Jun, [facility] [address] [facility] [id number] [place] [address] Jun, [facility] [address] [id number] [place] [address] Jun, [facility] [address] [id number] [place] [address] Apr, [facility] [address] [id number] [place] [address] Apr, [facility] [address] [id number] [place] [address] Apr, [facility] [address] [id number] [place] [address] Apr, [facility] [address] [id number] [place] [address] Dec, [facility] [address] [id number] [place] [address] Dec, [facility] [address] [facility] [id number] [place] [address] Dec, [facility] [address] [id number] [place] [address] Dec, [facility] [address] [id number] [place] [address] Dec, [facility] [address] [id number] [place] [address] Dec, [facility] [address] [id number] [place] [address] Nov, [facility] [address] [id number] [place] [address] Nov, [facility] [address] [id number] [place] [address] Sep, [facility] [address] [id number] [place] [address] Sep, [facility] [address] [id number] [place] [address] Sep, [facility] [address] [id number] [place] [address] Sep, [facility] [address] [id number] [place] [address] Sep, [facility] [address] [id number] [place] [address] Aug, [facility] [address] [id number] [place] [address] Aug, [facility] [address] [id number] [place] [address] Aug, [facility] [address] [id number] [place] [address] Aug, [facility] [address] [id number] [place] [address] Jul, [facility] [address] [id number] [place] [address] Jun, [facility] [address] [id number] [place] [address] May, [facility] [address] [id number] [place] [address] May, [facility] [address] [id number] [place] [address] May, [facility] [address] [id number] [place] [address] Apr, [facility] [address] [id number] [place] [address] Apr, [facility] [address] [id number] [place] [address] March, [facility] [address] [id number] [place] [address] March, [facility] [address] [id number] [place] [address] Feb, [facility] [address] [id number] [place] [address] Feb, [facility] [address] [id number] [place] [address] Feb, [facility] [address] [id number] [place] [address] Jan, [facility] [address] [id number] [place] [address] Jan, [facility] [address] [id number] [place] [address] Jan, [facility] [address] [id number] [place] [address] Dec, [facility] [address] [id number] [place] [address] Dec, [facility] [address] [id number] [place] [address] Dec, [facility] [address] [id number] [place] [address] Nov, [facility] [address] [id number] [place] [address] Nov, [facility] [address] [id number] [place] [address] Nov, [facility] [address] [id number] [place] [address] Nov, [facility] [address] [id number] [place] [address] Nov, [facility] [address] [id number] [place] [address] Nov, [facility] [address] [id number] [place] [address] Oct, [facility] [address] [id number] [place] [address] Oct, [facility] [address] [id number] [place] [address] Oct, [facility] [address] [id number] [place] [address] Oct, [facility] [address] [id number] [place] [address] Sep, [facility] [address] [id number] [place] [address] Sep, [facility] [address] [id number] [place] [address] Sep, [facility] [address] [id number] [place] [address] Sep, [facility] [address] [id number] [place] [address] Aug, [facility] [address] [id number] [place] [address] 24 Jul, 2012 [facility] [address] [id number] [place] [address] Jul, [facility] [address] [id number] [place] [address] Jul, [facility] [address] [id number] [place] [address] Jun, [facility] [address] [id number] [place] [address] Jun, [facility] [address] [id number] [place] [address] Jun, [facility] [address] [id number] [place] [address] May, [facility] [address] [id number] [place] [address] May, [facility] [address] [id number] [place] [address] Apr, [facility] [address] [id number] [place] [address] Apr, [facility] [address] [id number] [place] [address] Apr, [facility] [address] [id number] [place] [address] Apr, [facility] [address] [id number] [place] [address] March, [facility] [address] [id number] [place] [address] March, [facility] [address] [id number] [place] [address] March, [facility] [address] [id number] [place] [address] Jan, [facility] [address] [id number] [place] [address] Jan, [facility] [address] [id number] [place] [address] Jan, [facility] [address] [id number] [place] [address] Nov, [facility] [address] [id number] [place] [address] Nov, [facility] [address] [id number] [place] [address] Nov, [facility] [address] [id number] [place] [address] Nov, [facility] [address] [id number] [place] [address] Oct, [facility] [address] [id number] [place] [address] Oct, [facility] [address] [id number] [place] [address] Oct, [facility] [address] [id number] [place] [address] Oct, [facility] [address] [id number] [place] [address] Oct, [facility] [address] [id number] [place] [address] Oct, [facility] [address] [id number] [place] [address] Oct, IMMUNIZATIONS No Known Immunizations SOCIAL HISTORY [...]
--- OUTSIDE RECORDS SUMMARY | 2020-04-18 19:34 | XMS REPORT ---
Author Author Carroll CUNHA Organization [facility] Address [address] [place] [address] Care Team Providers Care Securities And Real [employer] Director Name Role Phone JS CUNHA Unavailable PROBLEMS Type Condition ICD9-CM Code BHZ49-PF Code Onset Dates Condition S tatus SNOMED Code Problem Coronary disease I25.10 Active 537 25681 Problem Arthritis M19.90 Active 3342585 Problem Gastroesophageal reflux disease, esophagitis pre sence not specified K21.9 Active 201238663 Problem Chronic kidney disease, stage IV (severe) N18.4 Active 265651991 Problem Secondary hyperparathyroidism of renal origin N25. 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 089258999 Problem Chronic systolic (congestive) heart failure I50.22 Active 379586850 Problem Essential hypertension I10 Active 40665229 Problem Anxiety F41.9 Active 63086717 Problem Amputated left leg Z89.612 Active 1 [id number] Problem Phantom limb pain G54.6 Active 57 28112925139 Problem Diabetes E11.9 Active [id number] ALLERGIES No Information ENCOUNTERS Encounter Location Date Diagnosis [place] [id number] [place] [address] Jan, Nail hypertrophy L60.2 ; Nail dystrophy L60.3 ; Onychomycosis B35.1 and Self-care deficit for grooming and hygiene Z74.[address] [address] Dec, Type 2 diabetes mellitus with diabetic n ephropathy E11.21 ; Phantom limb pain G54.6 ; Chronic kidney disease, stage IV (severe) N18.4 ; Secondary hyperparathyroidism of renal origin N25.81 ; Chronic systolic (congestive) heart failure I50.22 and Peripheral vascular disease, unspecified I73.9 [facility] [address] [address] Dec, [facility] [address] [address] Dec, [facility] [address] [address] Oct, Nail hypertrophy L60.2 and Onychomycosis B35.1 [place] [address] [address] Sep, Diabetes E11.9 ; Anxiety F41.9 and Phant om limb pain G54.6 [place] [address] [address] Sep, [place] [address] [address] Sep, [place] [address] [address] Aug, Diarrhea, unspecified type R19.7 [place] [address] [address] Aug, [place] [address] [address] Aug, [place] [address] [address] Jul, Anxiety F41.9 [facility] [address] [address] May, Phantom limb pain G54.6 and Amputated le ft leg Z89.612 [place] [address] [address] Apr, Phantom limb pain G54.6 [facility] [address] [address] Apr, [facility] [address] [address] 20 Apr, 2019 [place] [address] [address] 04 Apr, 2019 Nail hypertrophy L60.2 and Self-care def icit for grooming and hygiene Z74.1 [place] [address] [address] 16 Mar, 2019 Type 2 diabetes mellitus with diabetic n ephropathy E11.21 ; Chronic kidney disease, stage IV (severe) N18.4 ; Anxiety F41.9 and Amputated left leg Z89.612 [place] [address] [address] March, Anxiety F41.9 and Transient weakness of right lower extremity R29.898 [place] [address] [address] 14 Mar, 2019 [place] [address] [address] March, [place] [address] [address] Feb, [place] [address] [address] Aug, Anxiety F41.9 [place] [address] [address] Aug, Medicare annual wellness visit, initial Z00.00 ; Encounter for immunization Z23 ; Coronary disease I25.10 ; Type 2 diabetes mellitus with diabetic nephropathy E11.21 ; Chronic kidney disease, stage IV (severe) N18.4 ; Secondary hyperparathyroidism of renal origin N25.81 ; Anxiety F41.9 and Gastroesophageal reflux disease, esophagitis presence not specified K21.9 [place] [address] [address] Jul, Friction blister of right lower extremit y, initial encounter S80.821A [place] [address] [address] 06 Sep, 2018 Localized edema R60.0 ; Type 2 diabetes mellitus with diabetic nephropathy E11.21 ; Coronary disease I25.10 and Anxiety F41.9 [place] [address] [address] Jun, [place] [address] [address] March, Type 2 diabetes mellitus with diabetic n ephropathy E11.21 ; intermediate designer current use of insulin Z79.4 ; Chronic kidney disease, stage IV (severe) N18.4 ; Secondary hyperparathyroidism of renal origin N25.81 ; Coronary disease I25.10 and Gastroesophageal reflux disease, esophagitis presence not specified K21.9 [place] [address] [address] Nov, Type 2 diabetes mellitus without complic ations E11.9 ; Coronary disease I25.10 and Essential hypertension I10 [address] [address] May, Diabetes E11.9 [place] [address] [address] Apr, Type 2 diabetes mellitus without complic ations E11.9 and Arthritis M19.[address] [address] March, Diabetes E11.9 [place] [address] [address] March, Diabetes E11.9 [place] [address] [address] March, [place] [address] [address] Feb, Diabetes E11.9 [place] [address] [address] Feb, Diabetes E11.9 [place] [address] [address] Jan, [address] [place] [address] Jan, Diabetes E11.9 [facility] [address] [address] Jan, Type 2 diabetes mellitus without complic ations E11.9 [facility] [address] [address] Oct, [facility] [address] [address] Oct, Gastroesophageal reflux disease, esophag itis presence not specified K21.9 [facility] [address] [address] Sep, [facility] [address] [address] Sep, [facility] [address] [address] Sep, [facility] [address] [address] Aug, [facility] [address] [address] Aug, Diabetes E11.9 and Encounter for immuniz ation Z23 [facility] [address] [address] Aug, [facility] [address] [address] Jul, [facility] [address] [address] Jun, [facility] [address] [address] May, Diabetes E11.9 [facility] [address] [address] Apr, [facility] [address] [address] Apr, [facility] [address] [address] March, [facility] [id number] [place] [address] March, [facility] [id number] [place] [address] Feb, [facility] [id number] [place] [address] Feb, [facility] [address] [address] Feb, [facility] [address] [address] Feb, [facility] [address] [address] Feb, [facility] [address] [address] Feb, Type 2 diabetes mellitus without complic ations E11.9 [facility] [id number] [place] [address] Feb, [facility] [id number] [place] [address] Jan, [facility] [address] [address] Dec, Eustachian tube dysfunction H69.80 and D iabetes E11.9 [facility] [id number] [place] [address] Dec, [facility] [id number] [place] [address] Dec, [facility] [address] [address] Dec, Type 2 diabetes mellitus without complic ations E11.9 ; Atherosclerotic heart disease of [place] coronary artery without angina pectoris I25.10 and Diabetes E11.9 [facility] [address] [address] Dec, [facility] [address] [address] Dec, CHF (congestive heart failure) I50.9 [facility] [address] [address] Nov, Diabetes E11.9 and Coronary disease I25. 10 [facility] [address] [address] Oct, [facility] [address] [address] Aug, [facility] [address] [address] Jul, [facility] [address] [address] Jul, DM w/o complication type II 250.00 and S pontaneous bleeding of digits 459.0 [facility] [address] [address] Apr, [facility] [address] [address] Apr, [facility] [address] [address] March, CHF (congestive heart failure) 428.0 and Coronary atherosclerosis of unspecified type of vessel, [place] or graft 414.00 [facility] [address] [address] March, [facility] [address] [address] Feb, [facility] [address] [address] Feb, [facility] [address] [address] Jan, [facility] [address] [address] Jan, [facility] [address] [id number] [place] [address] Dec, 2014 [facility] [address] [id number] [place] [address] Dec, 2014 [facility] [address] [id number] [place] [address] Dec, 2014 [facility] [address] [id number] [place] [address] Dec, 2014 [facility] [address] [id number] [place] [address] Dec, [facility] [address] [id number] [place] [address] Dec, [facility] [address] [id number] [place] [address] Nov, [facility] [address] [id number] [place] [address] Nov, [facility] [address] [id number] [place] [address] Oct, [facility] [address] [id number] [place] [address] Sep, [facility] [address] [id number] [place] [address] Sep, [facility] [address] [id number] [place] [address] Sep, [facility] [address] [id number] [place] [address] Sep, [facility] [address] [id number] [place] [address] Jul, [facility] [address] [id number] [place] [address] 18 Jul, 2014 [facility] [address] [id number] [place] [address] Jul, [facility] [address] [id number] [place] [address] Jul, [facility] [address] [facility] [id number] [place] [address] Jun, [facility] [address] [facility] [id number] [facility] [place] [address] Jun, [facility] [address] [id number] [facility] [place] [address] Jun, [facility] [address] [id number] [place] [address] Jun, [facility] [address] [facility] [id number] [facility] [address] Apr, [facility] [address] [id number] [place] [address] Apr, [facility] [address] [id number] [place] [address] Apr, [facility] [address] [id number] [place] [address] Apr, [facility] [address] [id number] [place] [address] Dec, [facility] [address] [id number] [place] [address] Dec, [facility] [address] [id number] [place] [address] Dec, [facility] [address] [id number] [place] [address] Dec, [facility] [address] [id number] [place] [address] Dec, [facility] [address] [id number] [place] [address] Dec, [facility] [address] [id number] [place] [address] Nov, [facility] [address] [id number] [place] [address] Nov, [facility] [address] [id number] [place] [address] Sep, [facility] [address] [id number] [place] [address] Sep, [facility] [address] [id number] [place] [address] Sep, [facility] [address] [id number] [place] [address] Sep, [facility] [address] [id number] [place] [address] Sep, [facility] [address] [id number] [place] [address] Aug, [facility] [address] [id number] [place] [address] Aug, [facility] [address] [id number] [place] [address] Aug, [facility] [address] [id number] [place] [address] Aug, [facility] [address] [id number] [place] [address] Jul, [facility] [address] [id number] [place] [address] Jun, [facility] [address] [id number] [place] [address] May, [facility] [address] [id number] [place] [address] May, [facility] [address] [id number] [place] [address] May, [facility] [id number] [place] [address] Apr, [facility] [address] [id number] [place] [address] Apr, [facility] [address] [id number] [place] [address] March, [facility] [address] [id number] [place] [address] March, [facility] [address] [id number] [place] [address] Feb, [facility] [address] [id number] [place] [address] 15 Feb, 2013 [facility] [address] [id number] [place] [address] Feb, [facility] [address] [facility] [id number] [place] [address] Jan, [facility] [address] [id number] [place] [address] Jan, [facility] [address] [id number] [place] [address] Jan, [facility] [address] [id number] [place] [address] Dec, [facility] [address] [id number] [place] [address] Dec, [facility] [address] [id number] [place] [address] Dec, [facility] [address] [id number] [place] [address] Nov, [facility] [address] [id number] [place] [address] Nov, [facility] [address] [id number] [place] [address] Nov, [facility] [address] [id number] [place] [address] Nov, [facility] [address] [id number] [place] [address] Nov, [facility] [address] [id number] [place] [address] Nov, [facility] [address] [id number] [place] [address] Oct, [facility] [address] [id number] [place] [address] Oct, [facility] [address] [id number] [place] [address] Oct, [facility] [address] [id number] [place] [address] Oct, [facility] [address] [id number] [place] [address] Sep, [facility] [address] [id number] [place] [address] Sep, [facility] [address] [id number] [place] [address] Sep, [facility] [address] [id number] [place] [address] Sep, [facility] [address] [id number] [place] [address] Aug, [facility] [address] [id number] [place] [address] Jul, [facility] [address] [id number] [place] [address] Jul, [facility] [address] [id number] [place] [address] Jul, [facility] [address] [id number] [place] [address] Jun, [facility] [address] [id number] [place] [address] Jun, [facility] [address] [id number] [place] [address] Jun, [facility] [address] [id number] [place] [address] May, [facility] [address] [id number] [place] [address] May, [facility] [address] [id number] [place] [address] Apr, [facility] [address] [id number] [place] [address] 15 Apr, 2012 [facility] [address] [id number] [place] [address] 13 Apr, 2012 [facility] [address] [id number] [place] [address] Apr, [facility] [address] [id number] [place] [address] March, [facility] [address] [id number] [place] [address] March, [facility] [address] [id number] [place] [address] March, [facility] [address] [id number] [place] [address] Jan, [facility] [address] [id number] [place] [address] Jan, [facility] [address] [id number] [place] [address] Jan, [facility] [address] [id number] [place] [address] 16 Nov, 2011 [facility] [address] [id number] [place] [address] Nov, [facility] [address] [id number] [place] [address] Nov, [facility] [address] [id number] [place] [address] Nov, [facility] [address] [id number] [place] [address] 30 Oct, 2011 [facility] [address] [id number] [place] [address] Oct, [facility] [address] [id number] [place] [address] Oct, [facility] [address] [id number] [place] [address] Oct, [facility] [address] [id number] [place] [address] Oct, [facility] [address] [id number] [place] [address] Oct, [facility] [address] [id number] [place] [address] Oct, IMMUNIZATIONS No Known Immunizations SOCIAL HISTORY Never Assessed REASON FOR VISIT PLAN OF CARE VITAL SIGNS Height 69 in 2013-12-23 Weight 207 lbs 2013-12-23 Temperature 98 degrees Fahrenheit 2013-12-23 Heart Rate 80 bpm 2013-12-23 Respiratory Rate 20 2013-12-23 Blood pressure systolic 130 mmHg 2013-12-23 Blood pressure diastolic 72 mmHg 2013-12-23 MEDICATIONS Unknown Medications RESULTS No Results PROCEDURES Procedure Date Ordered Result Body Site GLYCATED HEMOGLOBIN TEST Dec 23, 2013 INSTRUCTIONS MEDICATIONS ADMINISTERED No Known Medications MEDICAL (GENERAL) HISTORY Type Description Date Medical History chronic obstructive pulmonary disease (C OPD) Medical History diabetes mellitus Medical History Hypertension Medical History Hyperlipidemia Medical History Stroke syndrome 2006 Surgical History Left leg amputation 1998 Surgical History Cardiothoracic surgery Defibrillator 200 6 Hospitalization History surgeries
--- OUTSIDE RECORDS SUMMARY | 2020-04-18 19:34 | XMS REPORT ---
Author Author Carroll CUNHA Organization [facility] Address [address] [place] [address] Care Team Providers Care Machine Room Operator Name Role Phone JS CUNHA Unavailable PROBLEMS Type Condition ICD9-CM Code LRL62-SI Code Onset Dates Condition S tatus SNOMED Code Problem Essential hypertension I10 Active 55338407 Problem Chronic kidney disease, stage IV (severe) N18.4 Active 779467530 Problem Secondary hyperparathyroidism of renal origin N25. 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 Z79.4 Active 972657658 Problem Anxiety F41.9 Active 03834931 Problem Amputated left leg Z89.612 Active 1 [id number] ALLERGIES No Information ENCOUNTERS Encounter Location Date Diagnosis [place] [address] [address] Dec, [address] [address] Oct, Nail hypertrophy L60.2 and Onychomycosis B35.[address] [address] Sep, Diabetes E11.9 ; Anxiety F41.9 and Phant om limb pain G54.6 [place] [address] [address] Sep, [place] [address] [address] Sep, [place] [address] [address] Aug, Diarrhea, unspecified type R19.7 [place] [address] [address] Aug, [place] [address] [address] Aug, [place] [address] [address] Jul, Anxiety F41.9 [place] [address] [address] May, Phantom limb pain G54.6 and Amputated le ft leg Z89.612 [place] [address] [address] Apr, Phantom limb pain G54.6 [place] [address] [address] Apr, [place] [address] [address] Apr, [place] [address] [address] Apr, Nail hypertrophy L60.2 and Self-care def icit for grooming and hygiene Z74.1 [place] [address] [address] March, Type 2 diabetes mellitus with diabetic n ephropathy E11.21 ; Chronic kidney disease, stage IV (severe) N18.4 ; Anxiety F41.9 and Amputated left leg Z89.612 [place] [address] [address] March, Anxiety F41.9 and Transient weakness of right lower extremity R29.898 [place] [address] [address] March, [place] [address] [address] March, [place] [address] [address] Feb, [place] [address] [address] Aug, Anxiety F41.9 [place] [address] [address] Aug, Medicare annual wellness visit, initial Z00.00 ; Encounter for immunization Z23 ; Coronary disease I25.10 ; Type 2 diabetes mellitus with diabetic nephropathy E11.21 ; Chronic kidney disease, stage IV (severe) N18.4 ; Secondary hyperparathyroidism of renal origin N25.81 ; Anxiety F41.9 and Gastroesophageal reflux disease, esophagitis presence not specified K21.9 [place] [address] [address] 26 Jul, 2018 Friction blister of right lower extremit y, initial encounter S80.821A [place] [address] [address] 06 Jul, 2018 Localized edema R60.0 ; Type 2 diabetes mellitus with diabetic nephropathy E11.21 ; Coronary disease I25.10 and Anxiety F41.9 [place] [address] [address] Jun, [address] [address] March, Type 2 diabetes mellitus with diabetic n ephropathy E11.21 ; intermediate manager current use of 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 Z79.4 ; Chronic kidney disease, stage IV (severe) N18.4 ; Secondary hyperparathyroidism of renal origin N25.81 ; Coronary disease I25.10 and Gastroesophageal reflux disease, esophagitis presence not specified K21.9 [place] [address] [address] Nov, Type 2 diabetes mellitus without complic ations E11.9 ; Coronary disease I25.10 and Essential hypertension I10 [place] [address] [address] May, Diabetes E11.9 [facility] [address] [id number] [place] [address] Apr, Type 2 diabetes mellitus without complic ations E11.9 and Arthritis M19.90 [facility] [address] [place] [id number] [place] [address] March, Diabetes E11.9 [facility] [address] [place] [id number] [place] [address] March, Diabetes E11.9 [facility] [address] [place] [id number] [place] [address] March, [facility] [address] [place] [id number] [place] [address] Feb, Diabetes E11.9 [facility] [address] [place] [id number] [place] [address] Feb, Diabetes E11.9 [facility] [address] [place] [id number] [place] [address] Jan, [facility] [address] [place] [id number] [place] [address] Jan, Diabetes E11.9 [facility] [address] [place] [id number] [place] [address] Jan, Type 2 diabetes mellitus without complic ations E11.9 [facility] [address] [place] [id number] [place] [address] Oct, [facility] [address] [place] [id number] [place] [address] Oct, Gastroesophageal reflux disease, esophag itis presence not specified K21.9 [facility] [address] [place] [id number] [place] [address] Sep, [facility] [address] [place] [id number] [place] [address] Sep, [facility] [address] [place] [id number] [place] [address] Sep, [facility] [address] [id number] [place] [address] Aug, [facility] [address] [place] [id number] [place] [address] Aug, Diabetes E11.9 and Encounter for immuniz ation Z23 [facility] [address] [place] [id number] [place] [address] Aug, [facility] [address] [place] [id number] [place] [address] Jul, [facility] [address] [place] [id number] [place] [address] Jun, [facility] [address] [place] [id number] [place] [address] May, Diabetes E11.9 [facility] [address] [place] [id number] [place] [address] Apr, [facility] [address] [place] [id number] [place] [address] Apr, [facility] [address] [place] [id number] [place] [address] March, [facility] [address] [place] [id number] [place] [address] March, [facility] [address] [place] [id number] [place] [address] Feb, [facility] [address] [place] [id number] [place] [address] Feb, [facility] [address] [id number] [place] [address] 18 Feb, 2016 [facility] [address] [place] [id number] [place] [address] 14 Feb, 2016 [facility] [address] [place] [id number] [place] [address] Feb, [facility] [address] [place] [id number] [place] [address] Feb, Type 2 diabetes mellitus without complic ations E11.9 [facility] [address] [address] Feb, [facility] [address] [address] Jan, [facility] [address] [address] Dec, Eustachian tube dysfunction H69.80 and D iabetes E11.9 [facility] [address] [address] Dec, [place] [address] [address] Dec, [facility] [address] [address] Dec, Type 2 diabetes mellitus without complic ations E11.9 ; Atherosclerotic heart disease of [place] coronary artery without angina pectoris I25.10 and Diabetes E11.9 [place] [address] [address] Dec, [facility] [address] [address] 05 Dec, 2015 CHF (congestive heart failure) I50.9 [place] [address] [address] Nov, Diabetes E11.9 and Coronary disease I25. 10 [facility] [address] [address] Oct, [facility] [address] [address] Aug, [facility] [address] [address] 23 Jul, 2015 [place] [address] [address] 08 Jul, 2015 DM w/o complication type II 250.00 and S pontaneous bleeding of digits 459.0 [facility] [address] [place] [id number] [place] [address] Apr, [facility] [address] [place] [id number] [place] [address] Apr, [facility] [address] [place] [id number] [place] [address] March, CHF (congestive heart failure) 428.0 and Coronary atherosclerosis of unspecified type of vessel, [place] or graft 414.00 [facility] [address] [place] [id number] [place] [address] March, [facility] [address] [address] Feb, [facility] [address] [place] [id number] [place] [address] Feb, [facility] [address] [place] [id number] [place] [address] Jan, [facility] [address] [place] [id number] [place] [address] Jan, [facility] [address] [place] [id number] [place] [address] Dec, [facility] [address] [place] [id number] [place] [address] Dec, [facility] [address] [place] [id number] [place] [address] Dec, [facility] [address] [place] [id number] [place] [address] Dec, [facility] [address] [place] [id number] [place] [address] Dec, [facility] [address] [place] [id number] [place] [address] Dec, [facility] [address] [place] [id number] [place] [address] Nov, [facility] [address] [place] [id number] [place] [address] Nov, [facility] [address] [facility] [id number] [place] [address] Oct, [facility] [address] [id number] [place] [address] Sep, [facility] [address] [id number] [place] [address] Sep, [facility] [address] [id number] [place] [address] Sep, [facility] [address] [id number] [facility] [place] [address] Sep, [facility] [address] [id number] [place] [address] Jul, [facility] [address] [id number] [place] [address] Jul, [facility] [address] [id number] [place] [address] Jul, [facility] [address] [id number] [place] [address] Jul, [facility] [address] [id number] [place] [address] Jun, [facility] [address] [id number] [place] [address] Jun, [facility] [address] [id number] [place] [address] Jun, [facility] [address] [id number] [place] [address] Jun, [facility] [address] [id number] [place] [address] Apr, [facility] [address] [id number] [place] [address] Apr, [facility] [address] [id number] [place] [address] Apr, [facility] [address] [id number] [place] [address] Apr, [facility] [address] [id number] [place] [address] Dec, [facility] [address] [id number] [place] [address] Dec, [facility] [address] [id number] [place] [address] Dec, [facility] [address] [id number] [place] [address] Dec, [facility] [address] [id number] [place] [address] Dec, [facility] [address] [id number] [place] [address] Dec, [facility] [address] [place] [id number] [place] [address] Nov, [facility] [address] [id number] [place] [address] Nov, [facility] [address] [id number] [place] [address] Sep, [facility] [address] [id number] [place] [address] Sep, [facility] [address] [id number] [place] [address] Sep, [facility] [address] [id number] [place] [address] Sep, [facility] [address] [id number] [place] [address] Sep, [facility] [address] [place] [id number] [place] [address] Aug, [facility] [address] [id number] [place] [address] Aug, [facility] [address] [id number] [place] [address] Aug, [facility] [address] [id number] [place] [address] Aug, [facility] [address] [id number] [place] [address] Jul, [facility] [address] [id number] [place] [address] Jun, [facility] [address] [id number] [place] [address] May, [facility] [address] [facility] [id number] [place] [address] May, [facility] [address] [id number] [place] [address] May, [facility] [address] [id number] [place] [address] Apr, [facility] [address] [id number] [place] [address] Apr, [facility] [address] [id number] [place] [address] March, [facility] [address] [id number] [place] [address] March, [facility] [address] [id number] [place] [address] Feb, [facility] [address] [id number] [place] [address] 15 Feb, 2013 [facility] [address] [id number] [place] [address] Feb, [facility] [address] [id number] [place] [address] Jan, [facility] [address] [id number] [place] [address] Jan, [facility] [address] [id number] [place] [address] Jan, [facility] [address] [id number] [place] [address] Dec, [facility] [address] [id number] [place] [address] Dec, [facility] [address] [id number] [place] [address] Dec, [facility] [address] [id number] [place] [address] Nov, [facility] [address] [id number] [place] [address] Nov, [facility] [address] [id number] [place] [address] Nov, [facility] [address] [id number] [place] [address] Nov, [facility] [address] [id number] [place] [address] Nov, [facility] [address] [id number] [place] [address] Nov, [facility] [address] [id number] [place] [address] Oct, [facility] [address] [id number] [place] [address] Oct, [facility] [address] [id number] [place] [address] Oct, [facility] [address] [id number] [place] [address] Oct, [facility] [address] [id number] [place] [address] Sep, [facility] [address] [place] [id number] [place] [address] Sep, [facility] [address] [id number] [place] [address] Sep, [facility] [address] [place] [id number] [place] [address] Sep, [facility] [address] [id number] [place] [address] Aug, [facility] [address] [id number] [place] [address] Jul, [facility] [address] [id number] [place] [address] Jul, [facility] [address] [id number] [place] [address] Jul, [facility] [address] [id number] [place] [address] Jun, [facility] [address] [id number] [place] [address] Jun, [facility] [address] [id number] [place] [address] Jun, [facility] [address] [place] [id number] [place] [address] May, [facility] [address] [id number] [place] [address] May, [facility] [address] [id number] [place] [address] Apr, [facility] [address] [id number] [place] [address] Apr, [facility] [address] [id number] [place] [address] Apr, [facility] [address] [id number] [place] [address] Apr, [facility] [address] [id number] [place] [address] March, [facility] [address] [id number] [place] [address] March, [facility] [address] [id number] [place] [address] March, [facility] [address] [id number] [place] [address] Jan, [facility] [address] [id number] [place] [address] Jan, [facility] [address] [id number] [place] [address] Jan, [facility] [address] [id number] [place] [address] Nov, [facility] [address] [id number] [place] [address] Nov, [facility] [address] [id number] [place] [address] Nov, [facility] [id number] [place] [address] Nov, [facility] [address] [id number] [place] [address] Oct, [facility] [id number] [place] [address] Oct, [facility] [address] [id number] [place] [address] Oct, [facility] [id number] [place] [address] Oct, [facility] [address] [id number] [place] [address] Oct, [facility] [address] [id number] [place] [address] Oct, [facility] [address] [id number] [place] [address] Oct, IMMUNIZATIONS No Known Immunizations SOCIAL HISTORY Never Assessed REASON FOR VISIT PLAN OF CARE VITAL SIGNS MEDICATIONS Unknown Medications RESULTS No Results PROCEDURES No Known procedures INSTRUCTIONS MEDICATIONS ADMINISTERED No Known Medications MEDICAL (GENERAL) HISTORY Type Description Date Medical History chronic obstructive pulmonary disease (C OPD) Medical History diabetes mellitus Medical History Hypertension Medical History Hyperlipidemia Medical History Stroke syndrome 2007 Surgical History Left leg amputation 1998 Surgical History Cardiothoracic surgery Defibrillator 200 6 Hospitalization History surgeries
--- OUTSIDE RECORDS SUMMARY | 2020-04-18 19:34 | XMS REPORT ---
Author Author Carroll CUNHA Organization [facility] Address [address] [place] [address] Care Team Providers Care Director Of Materials Management Name Role Phone JS CUNHA Unavailable PROBLEMS Type Condition ICD9-CM Code TYS03-YX Code Onset Dates Condition S tatus SNOMED Code Problem Coronary disease I25.10 Active 537 99343 Problem Arthritis M19.90 Active 8715025 Problem Gastroesophageal reflux disease, esophagitis pre sence not specified K21.9 Active 371884218 Problem Chronic kidney disease, stage IV (severe) N18.4 Active 001019490 Problem Secondary hyperparathyroidism of renal origin N25. 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 611869363 Problem Chronic systolic (congestive) heart failure I50.22 Active 111157962 Problem Essential hypertension I10 Active 74792419 Problem Anxiety F41.9 Active 56758432 Problem Amputated left leg Z89.612 Active 1 [id number] Problem Phantom limb pain G54.6 Active 57 99783986536 Problem Diabetes E11.9 Active 546726705 ALLERGIES No Information ENCOUNTERS Encounter Location Date Diagnosis [place] [address] [address] Jan, [facility] [address] [address] Dec, Type 2 diabetes mellitus with diabetic n ephropathy E11.21 ; Phantom limb pain G54.6 ; Chronic kidney disease, stage IV (severe) N18.4 ; Secondary hyperparathyroidism of renal origin N25.81 ; Chronic systolic (congestive) heart failure I50.22 and Peripheral vascular disease, unspecified I73.9 [place] [address] [address] Dec, [facility] [address] [address] Dec, [facility] [address] [address] Oct, Nail hypertrophy L60.2 and Onychomycosis B35.1 [facility] [address] [address] Sep, Diabetes E11.9 ; Anxiety F41.9 and Phant om limb pain G54.6 [facility] [address] [address] Sep, [facility] [address] [address] Sep, [facility] [address] [address] Aug, Diarrhea, unspecified type R19.7 [facility] [address] [address] Aug, [facility] [address] [address] Aug, [facility] [address] [address] Jul, Anxiety F41.9 [facility] [address] [address] May, Phantom limb pain G54.6 and Amputated le ft leg Z89.612 [facility] [address] [address] Apr, Phantom limb pain G54.6 [facility] [address] [address] Apr, [facility] [address] [address] Apr, [facility] [address] [address] 04 Apr, 2019 Nail hypertrophy L60.2 and Self-care def icit for grooming and hygiene Z74.[address] [address] 16 Mar, 2019 Type 2 diabetes mellitus with diabetic n ephropathy E11.21 ; Chronic kidney disease, stage IV (severe) N18.4 ; Anxiety F41.9 and Amputated left leg Z89.612 [place] [address] [address] March, Anxiety F41.9 and Transient weakness of right lower extremity R29.[address] [address] March, [address] [address] March, [address] [address] Feb, [address] [address] Aug, Anxiety F41.[address] [address] Aug, Medicare annual wellness visit, initial Z00.00 ; Encounter for immunization Z23 ; Coronary disease I25.10 ; Type 2 diabetes mellitus with diabetic nephropathy E11.21 ; Chronic kidney disease, stage IV (severe) N18.4 ; Secondary hyperparathyroidism of renal origin N25.81 ; Anxiety F41.9 and Gastroesophageal reflux disease, esophagitis presence not specified K21.[address] [address] 26 Jul, 2018 Friction blister of right lower extremit y, initial encounter S80.821A [address] [address] 06 Jul, 2018 Localized edema R60.0 ; Type 2 diabetes mellitus with diabetic nephropathy E11.21 ; Coronary disease I25.10 and Anxiety F41.[id number] [place] [address] Jun, [place] [address] [address] March, Type 2 diabetes mellitus with diabetic n ephropathy E11.21 ; 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 Z79.4 ; Chronic kidney disease, stage IV (severe) N18.4 ; Secondary hyperparathyroidism of renal origin N25.81 ; Coronary disease I25.10 and Gastroesophageal reflux disease, esophagitis presence not specified K21.9 [facility] [address] [address] Nov, Type 2 diabetes mellitus without complic ations E11.9 ; Coronary disease I25.10 and Essential hypertension I10 [place] [address] [address] May, Diabetes E11.9 [place] [address] [address] Apr, Type 2 diabetes mellitus without complic ations E11.9 and Arthritis M19.90 [place] [address] [address] March, Diabetes E11.9 [place] [address] [address] March, Diabetes E11.9 [place] [address] [address] March, [place] [address] [address] Feb, Diabetes E11.9 [place] [address] [address] Feb, Diabetes E11.9 [place] [address] [address] Jan, [place] [address] [address] Jan, Diabetes E11.9 [place] [address] [address] Jan, Type 2 diabetes mellitus without complic ations E11.9 [facility] [address] [address] Oct, [facility] [address] [address] Oct, Gastroesophageal reflux disease, esophag itis presence not specified K21.9 [facility] [address] [address] Sep, [facility] [address] [address] Sep, [facility] [address] [address] Sep, [facility] [address] [address] Aug, [facility] [address] [address] Aug, Diabetes E11.9 and Encounter for immuniz ation Z23 [facility] [address] [address] Aug, [facility] [address] [address] Jul, [facility] [address] [address] Jun, [facility] [address] [address] May, Diabetes E11.9 [facility] [address] [address] Apr, [facility] [address] [address] Apr, [facility] [address] [address] March, [facility] [address] [address] March, [facility] [address] [place] [id number] [place] [address] Feb, [facility] [address] [place] [id number] [place] [address] Feb, [facility] [address] [place] [id number] [place] [address] Feb, [facility] [address] [place] [id number] [place] [address] Feb, [facility] [address] [place] [id number] [place] [address] Feb, [facility] [address] [address] Feb, Type 2 diabetes mellitus without complic ations E11.9 [facility] [address] [place] [id number] [place] [address] Feb, [facility] [address] [place] [id number] [place] [address] Jan, [facility] [address] [place] [id number] [place] [address] Dec, Eustachian tube dysfunction H69.80 and D iabetes E11.9 [facility] [address] [place] [id number] [place] [address] Dec, [facility] [address] [place] [id number] [place] [address] Dec, [facility] [address] [place] [id number] [place] [address] Dec, Type 2 diabetes mellitus without complic ations E11.9 ; 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 10 [facility] [address] [address] Oct, [facility] [address] [address] Aug, [facility] [address] [address] Jul, [facility] [address] [address] Jul, DM w/o complication type II 250.00 and S pontaneous bleeding of digits 459.0 [facility] [address] [address] Apr, [facility] [address] [address] Apr, [facility] [address] [address] March, CHF (congestive heart failure) 428.0 and Coronary atherosclerosis of unspecified type of vessel, inupiat or graft 414.00 [facility] [address] [address] March, [facility] [address] [address] Feb, [facility] [address] [address] Feb, [facility] [address] [address] Jan, [facility] [address] [address] Jan, [facility] [address] [address] Dec, [facility] [address] [place] [address] Dec, 2014 [facility] [place] [facility] [address] [id number] [place] [address] Dec, 2014 [facility] [place] [facility] [address] [id number] [place] [address] Dec, 2014 [facility] [place] [facility] [address] [id number] [place] [address] Dec, 2014 [facility] [place] [facility] [address] [place] [id number] [place] [address] Dec, [facility] [place] [facility] [address] [id number] [place] [address] Nov, [facility] [place] [facility] [address] [place] [id number] [place] [address] Nov, [facility] [place] [facility] [address] [place] [id number] [place] [address] Oct, [facility] [place] [facility] [address] [place] [id number] [place] [address] Sep, [facility] [place] [facility] [address] [id number] [place] [address] Sep, [facility] [place] [facility] [address] [place] [id number] [place] [address] Sep, [facility] [place] [facility] [address] [place] [id number] [place] [address] Sep, [facility] [place] [facility] [address] [place] [id number] [place] [address] Jul, [facility] [place] [facility] [address] [id number] [place] [address] Jul, [facility] [place] [facility] [address] [place] [id number] [place] [address] Jul, [facility] [place] [facility] [address] [id number] [place] [address] Jul, [facility] [place] [facility] [address] [place] [id number] [place] [address] Jun, [facility] [place] [facility] [address] [facility] [id number] [place] [address] Jun, [facility] [place] [facility] [address] [id number] [place] [address] Jun, [facility] [place] [facility] [address] [id number] [place] [address] Jun, [facility] [place] [facility] [address] [id number] [place] [address] Apr, [facility] [place] [facility] [address] [facility] [id number] [place] [address] Apr, [facility] [place] [facility] [address] [id number] [place] [address] Apr, [facility] [place] [facility] [address] [id number] [place] [address] Apr, [facility] [place] [facility] [address] [id number] [place] [address] Dec, [facility] [place] [facility] [address] [id number] [place] [address] Dec, [facility] [place] [facility] [address] [id number] [place] [address] Dec, [facility] [place] [facility] [address] [id number] [place] [address] Dec, [facility] [place] [facility] [address] [id number] [place] [address] Dec, [facility] [place] [facility] [address] [id number] [place] [address] Dec, [facility] [place] [facility] [address] [id number] [place] [address] Nov, [facility] [place] [facility] [address] [id number] [place] [address] Nov, [facility] [place] [facility] [address] [id number] [place] [address] Sep, [facility] [place] [facility] [address] [id number] [place] [address] Sep, [facility] [place] [facility] [address] [id number] [place] [address] Sep, [facility] [place] [facility] [address] [id number] [place] [address] Sep, [facility] [place] [facility] [address] [id number] [place] [address] Sep, [facility] [place] [facility] [address] [id number] [place] [address] Aug, [facility] [place] [facility] [address] [id number] [place] [address] Aug, [facility] [place] [facility] [address] [id number] [place] [address] Aug, [facility] [place] [facility] [address] [id number] [place] [address] Aug, [facility] [place] [facility] [address] [id number] [place] [address] Jul, [facility] [place] [facility] [address] [id number] [place] [address] Jun, [facility] [place] [facility] [address] [id number] [place] [address] May, [facility] [place] [facility] [address] [id number] [place] [address] May, [facility] [place] [facility] [address] [id number] [place] [address] May, [facility] [place] [facility] [address] [id number] [place] [address] Apr, [facility] [place] [facility] [address] [place] [id number] [place] [address] Apr, [facility] [place] [facility] [address] [id number] [place] [address] March, [facility] [place] [facility] [address] [id number] [place] [address] March, [facility] [place] [facility] [address] [id number] [place] [address] 18 Feb, 2013 [facility] [address] [id number] [place] [address] 15 Feb, 2013 [facility] [place] [facility] [address] [id number] [place] [address] 10 Feb, 2013 [facility] [address] [id number] [place] [address] Jan, [facility] [place] [facility] [address] [id number] [place] [address] Jan, [facility] [place] [facility] [address] [id number] [place] [address] Jan, [facility] [place] [facility] [address] [id number] [place] [address] Dec, [facility] [address] [id number] [place] [address] Dec, [facility] [place] [facility] [address] [id number] [place] [address] Dec, [facility] [place] [facility] [address] [id number] [place] [address] Nov, [facility] [place] [facility] [address] [id number] [place] [address] Nov, [facility] [place] [facility] [address] [id number] [place] [address] Nov, [facility] [place] [facility] [address] [id number] [place] [address] Nov, [facility] [place] [facility] [address] [id number] [place] [address] Nov, [facility] [place] [facility] [address] [id number] [place] [address] Nov, [facility] [place] [facility] [address] [id number] [place] [address] Oct, [facility] [place] [facility] [address] [id number] [place] [address] Oct, [facility] [place] [facility] [address] [id number] [place] [address] Oct, [facility] [place] [facility] [address] [id number] [place] [address] Oct, [facility] [place] [facility] [address] [id number] [place] [address] Sep, [facility] [place] [facility] [address] [id number] [place] [address] Sep, [facility] [place] [facility] [address] [id number] [place] [address] Sep, [facility] [place] [facility] [address] [id number] [place] [address] Sep, [facility] [place] [facility] [address] [id number] [place] [address] Aug, [facility] [place] [facility] [address] [id number] [place] [address] Jul, [facility] [place] [facility] [address] [id number] [place] [address] Jul, [facility] [place] [facility] [address] [id number] [place] [address] Jul, [facility] [place] [facility] [address] [id number] [place] [address] Jun, [facility] [place] [facility] [address] [id number] [place] [address] Jun, [facility] [place] [facility] [address] [id number] [place] [address] Jun, [facility] [place] [facility] [address] [id number] [place] [address] May, [facility] [place] [facility] [address] [id number] [place] [address] May, [facility] [place] [facility] [address] [id number] [place] [address] Apr, [facility] [place] [facility] [address] [id number] [place] [address] 15 Apr, 2012 [facility] [place] [facility] [address] [facility] [id number] [place] [address] 13 Apr, 2012 [facility] [place] [facility] [address] [id number] [place] [address] Apr, [facility] [place] [facility] [address] [id number] [place] [address] March, [facility] [place] [facility] [address] [id number] [place] [address] March, [facility] [place] [facility] [address] [id number] [place] [address] March, [facility] [place] [facility] [address] [id number] [place] [address] Jan, [facility] [place] [facility] [address] [id number] [place] [address] Jan, [facility] [place] [facility] [address] [id number] [place] [address] Jan, [facility] [place] [facility] [address] [id number] [place] [address] Nov, [facility] [place] [facility] [address] [id number] [place] [address] Nov, [facility] [place] [facility] [address] [id number] [place] [address] Nov, [facility] [place] [facility] [address] [id number] [place] [address] Nov, [facility] [place] [facility] [address] [facility] [id number] [place] [address] Oct, [facility] [place] [facility] [address] [id number] [place] [address] Oct, [facility] [place] [facility] [address] [id number] [place] [address] Oct, [facility] [place] [facility] [address] [id number] [place] [address] Oct, [facility] [address] [id number] [place] [address] Oct, [facility] [address] [id number] [place] [address] Oct, [facility] [address] [id number] [place] [address] Oct, IMMUNIZATIONS No Known Immunizations SOCIAL HISTORY [...]
--- OUTSIDE RECORDS SUMMARY | 2020-04-18 19:34 | XMS REPORT ---
Author Author Carroll CUNHA Organization [facility] Address [address] [place] [address] Care Team Providers Care Assault Boat Coxswain Name Role Phone JS CUNHA Unavailable PROBLEMS Type Condition ICD9-CM Code YES47-UL Code Onset Dates Condition S tatus SNOMED Code Problem Essential hypertension I10 Active 31162632 Problem Chronic kidney disease, stage IV (severe) N18.4 Active 997236004 Problem Secondary hyperparathyroidism of renal origin N25. 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 615965848 Problem Anxiety F41.9 Active 69939795 Problem Amputated left leg Z89.612 Active 1 [id number] ALLERGIES No Information ENCOUNTERS Encounter Location Date Diagnosis [place] [address] [address] Dec, [place] [address] [address] Dec, [place] [address] [address] Dec, [place] [address] [address] Oct, Nail hypertrophy L60.2 and Onychomycosis B35.1 [place] [address] [address] Sep, Diabetes E11.9 ; Anxiety F41.9 and Phant om limb pain G54.6 [facility] [address] [address] Sep, [facility] [address] [address] Sep, [facility] [address] [address] Aug, Diarrhea, unspecified type R19.7 [facility] [address] [address] Aug, [facility] [address] [address] Aug, [place] [address] [address] Jul, Anxiety F41.9 [place] [address] [address] May, Phantom limb pain G54.6 and Amputated le ft leg Z89.612 [place] [address] [address] Apr, Phantom limb pain G54.6 [place] [address] [address] Apr, [place] [address] [address] Apr, [place] [address] [address] Apr, Nail hypertrophy L60.2 and Self-care def icit for grooming and hygiene Z74.1 [place] [address] [address] March, Type 2 diabetes mellitus with diabetic n ephropathy E11.21 ; Chronic kidney disease, stage IV (severe) N18.4 ; Anxiety F41.9 and Amputated left leg Z89.612 [place] [address] [address] March, Anxiety F41.9 and Transient weakness of right lower extremity R29.898 [place] [address] [address] March, [facility] [address] [address] March, [place] [address] [address] Feb, [place] [address] [address] Aug, Anxiety F41.9 [place] [address] [address] Aug, Medicare annual wellness visit, initial Z00.00 ; Encounter for immunization Z23 ; Coronary disease I25.10 ; Type 2 diabetes mellitus with diabetic nephropathy E11.21 ; Chronic kidney disease, stage IV (severe) N18.4 ; Secondary hyperparathyroidism of renal origin N25.81 ; Anxiety F41.9 and Gastroesophageal reflux disease, esophagitis presence not specified K21.9 [place] [address] [address] 26 Jul, 2018 Friction blister of right lower extremit y, initial encounter S80.821A [place] [address] [address] 06 Jul, 2018 Localized edema R60.0 ; Type 2 diabetes mellitus with diabetic nephropathy E11.21 ; Coronary disease I25.10 and Anxiety F41.9 [place] [address] [address] Jun, [place] [address] [address] March, Type 2 diabetes mellitus with diabetic n ephropathy E11.21 ; 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 ; Chronic kidney disease, stage IV (severe) N18.4 ; Secondary hyperparathyroidism of renal origin N25.81 ; Coronary disease I25.10 and Gastroesophageal reflux disease, esophagitis presence not specified K21.9 [place] [address] [place] [id number] [place] [address] Nov, Type 2 diabetes mellitus without complic ations E11.9 ; Coronary disease I25.10 and Essential hypertension I10 [facility] [address] [place] [address] [id number] [place] [address] May, Diabetes E11.9 [facility] [address] [address] Apr, Type 2 diabetes mellitus without complic ations E11.9 and Arthritis M19.90 [facility] [address] [address] March, Diabetes E11.9 [facility] [address] [address] March, Diabetes E11.9 [facility] [address] [address] March, [facility] [address] [address] Feb, Diabetes E11.9 [facility] [address] [address] Feb, Diabetes E11.9 [facility] [address] [address] Jan, [facility] [address] [address] Jan, Diabetes E11.9 [facility] [address] [address] Jan, Type 2 diabetes mellitus without complic ations E11.9 [facility] [address] [address] Oct, [facility] [address] [address] Oct, Gastroesophageal reflux disease, esophag itis presence not specified K21.9 [facility] [address] [address] Sep, [facility] [address] [place] [id number] [place] [address] Sep, [facility] [address] [place] [id number] [place] [address] Sep, [facility] [address] [place] [id number] [place] [address] Aug, [facility] [address] [place] [id number] [place] [address] Aug, Diabetes E11.9 and Encounter for immuniz ation Z23 [facility] [address] [place] [id number] [place] [address] Aug, [facility] [address] [place] [id number] [place] [address] Jul, [facility] [address] [place] [id number] [place] [address] Jun, [facility] [address] [place] [id number] [place] [address] May, Diabetes E11.9 [facility] [address] [place] [id number] [place] [address] Apr, [facility] [address] [place] [id number] [place] [address] Apr, [facility] [address] [place] [id number] [place] [address] March, [facility] [address] [place] [id number] [place] [address] March, [facility] [address] [place] [id number] [place] [address] Feb, [facility] [address] [place] [id number] [place] [address] 19 Feb, 2016 [facility] [address] [place] [id number] [place] [address] 18 Feb, 2016 [facility] [address] [place] [address] [id number] [place] [address] 14 Feb, 2016 [facility] [address] [address] [id number] [place] [address] Feb, [facility] [address] [address] Feb, Type 2 diabetes mellitus without complic ations E11.9 [facility] [address] [address] Feb, [facility] [address] [address] Jan, [facility] [address] [address] Dec, Eustachian tube dysfunction H69.80 and D iabetes E11.9 [facility] [address] [address] Dec, [facility] [address] [address] Dec, [facility] [address] [address] Dec, Type 2 diabetes mellitus without complic ations E11.9 ; 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 10 [facility] [address] [address] Oct, [facility] [address] [address] Aug, [facility] [address] [address] Jul, [facility] [address] [place] [id number] [place] [address] Jul, DM w/o complication type II 250.00 and S pontaneous bleeding of digits 459.0 [facility] [address] [place] [id number] [place] [address] Apr, [facility] [address] [address] Apr, [facility] [address] [address] March, CHF (congestive heart failure) 428.0 and Coronary atherosclerosis of unspecified type of vessel, three affiliated or graft 414.00 [facility] [address] [place] [id number] [place] [address] March, [facility] [address] [address] Feb, [facility] [address] [address] Feb, [facility] [address] [address] Jan, [facility] [address] [address] Jan, [facility] [address] [address] Dec, [facility] [address] [address] Dec, [facility] [address] [address] Dec, [facility] [address] [address] Dec, [facility] [address] [address] Dec, [facility] [address] [address] Dec, [facility] [address] [facility] [id number] [place] [address] Nov, [facility] [address] [facility] [id number] [place] [address] Nov, [facility] [address] [id number] [place] [address] Oct, [facility] [address] [id number] [place] [address] Sep, [facility] [address] [facility] [id number] [place] [address] Sep, [facility] [address] [id number] [place] [address] Sep, [facility] [address] [id number] [place] [address] Sep, [facility] [address] [id number] [place] [address] Jul, [facility] [address] [id number] [place] [address] Jul, [facility] [address] [id number] [place] [address] Jul, [facility] [address] [id number] [place] [address] Jul, [facility] [address] [id number] [place] [address] Jun, [facility] [address] [facility] [id number] [place] [address] Jun, [facility] [address] [id number] [place] [address] Jun, [facility] [address] [id number] [place] [address] Jun, [facility] [address] [id number] [place] [address] Apr, [facility] [address] [id number] [place] [address] Apr, [facility] [address] [id number] [place] [address] Apr, [facility] [address] [id number] [place] [address] Apr, [facility] [address] [id number] [place] [address] Dec, [facility] [address] [id number] [place] [address] Dec, [facility] [address] [id number] [place] [address] Dec, [facility] [address] [id number] [place] [address] Dec, [facility] [address] [id number] [place] [address] Dec, [facility] [address] [id number] [place] [address] Dec, [facility] [address] [id number] [place] [address] Nov, [facility] [address] [id number] [place] [address] Nov, [facility] [address] [id number] [place] [address] Sep, [facility] [address] [id number] [place] [address] Sep, [facility] [address] [id number] [place] [address] Sep, [facility] [address] [id number] [place] [address] Sep, [facility] [address] [id number] [place] [address] Sep, [facility] [address] [id number] [place] [address] Aug, [facility] [address] [facility] [id number] [place] [address] Aug, [facility] [address] [id number] [place] [address] Aug, [facility] [address] [id number] [place] [address] Aug, [facility] [address] [id number] [place] [address] Jul, [facility] [address] [id number] [place] [address] Jun, [facility] [address] [id number] [place] [address] May, [facility] [address] [id number] [place] [address] May, [facility] [address] [id number] [place] [address] May, [facility] [address] [id number] [place] [address] Apr, [facility] [address] [id number] [place] [address] Apr, [facility] [address] [id number] [place] [address] March, [facility] [address] [id number] [place] [address] March, [facility] [address] [id number] [place] [address] Feb, [facility] [address] [id number] [place] [address] 15 Feb, 2013 [facility] [address] [id number] [place] [address] 10 Feb, 2013 [facility] [address] [id number] [place] [address] Jan, [facility] [address] [id number] [place] [address] Jan, [facility] [address] [id number] [place] [address] Jan, [facility] [address] [id number] [place] [address] Dec, [facility] [address] [id number] [place] [address] Dec, [facility] [address] [id number] [place] [address] Dec, [facility] [address] [id number] [place] [address] Nov, [facility] [address] [id number] [place] [address] Nov, [facility] [address] [id number] [place] [address] Nov, [facility] [address] [id number] [place] [address] Nov, [facility] [address] [id number] [place] [address] Nov, [facility] [address] [id number] [place] [address] Nov, [facility] [address] [id number] [place] [address] Oct, [facility] [address] [id number] [place] [address] Oct, [facility] [address] [id number] [place] [address] Oct, [facility] [address] [id number] [place] [address] Oct, [facility] [address] [id number] [place] [address] Sep, [facility] [address] [id number] [place] [address] Sep, [facility] [address] [id number] [place] [address] Sep, [facility] [address] [id number] [place] [address] Sep, [facility] [address] [id number] [place] [address] Aug, [facility] [address] [id number] [place] [address] Jul, [facility] [address] [id number] [place] [address] Jul, [facility] [address] [id number] [place] [address] Jul, [facility] [address] [id number] [place] [address] Jun, [facility] [address] [id number] [place] [address] Jun, [facility] [address] [id number] [place] [address] Jun, [facility] [address] [id number] [place] [address] May, [facility] [address] [id number] [place] [address] May, [facility] [address] [id number] [place] [address] Apr, [facility] [address] [id number] [place] [address] Apr, [facility] [address] [id number] [place] [address] Apr, [facility] [address] [id number] [place] [address] Apr, [facility] [address] [id number] [place] [address] March, [facility] [address] [id number] [place] [address] March, [facility] [id number] [place] [address] March, [facility] [id number] [place] [address] Jan, [facility] [id number] [place] [address] Jan, [facility] [id number] [place] [address] Jan, [facility] [id number] [place] [address] Nov, [facility] [id number] [place] [address] Nov, [facility] [id number] [place] [address] Nov, [facility] [id number] [place] [address] Nov, [facility] [id number] [place] [address] Oct, [facility] [id number] [place] [address] Oct, [facility] [id number] [place] [address] Oct, [facility] [id number] [place] [address] Oct, [facility] [id number] [place] [address] Oct, [facility] [id number] [place] [address] Oct, [facility] [id number] [place] [address] Oct, IMMUNIZATIONS No Known Immunizations SOCIAL HISTORY [...]
--- OUTSIDE RECORDS SUMMARY | 2020-04-18 19:34 | XMS REPORT ---
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 Active 962859186 Problem Anxiety F41.9 Active 45210165 Problem Amputated left leg Z89.612 Active 1 [id number] ALLERGIES No Information ENCOUNTERS Encounter Location Date Diagnosis [place] [address] [address] Dec, [address] [address] Oct, Nail hypertrophy L60.2 and Onychomycosis B35.[address] [address] Sep, Diabetes E11.9 ; Anxiety F41.9 and Phant om limb pain G54.6 [place] [address] [address] Sep, [place] [address] [address] Sep, [place] [address] [address] Aug, Diarrhea, unspecified type R19.7 [place] [address] [address] Aug, [place] [address] [address] Aug, [place] [address] [address] Jul, Anxiety F41.9 [place] [address] [address] May, Phantom limb pain G54.6 and Amputated le ft leg Z89.612 [place] [address] [address] Apr, Phantom limb pain G54.6 [place] [address] [address] Apr, [place] [address] [address] Apr, [place] [address] [address] Apr, Nail hypertrophy L60.2 and Self-care def icit for grooming and hygiene Z74.1 [place] [address] [address] March, Type 2 diabetes mellitus with diabetic n ephropathy E11.21 ; Chronic kidney disease, stage IV (severe) N18.4 ; Anxiety F41.9 and Amputated left leg Z89.612 [place] [address] [address] March, Anxiety F41.9 and Transient weakness of right lower extremity R29.898 [place] [address] [address] March, [place] [address] [address] March, [place] [address] [address] Feb, [place] [address] [address] Aug, Anxiety F41.9 [place] [address] [address] Aug, Medicare annual wellness visit, initial Z00.00 ; Encounter for immunization Z23 ; Coronary disease I25.10 ; Type 2 diabetes mellitus with diabetic nephropathy E11.21 ; Chronic kidney disease, stage IV (severe) N18.4 ; Secondary hyperparathyroidism of renal origin N25.81 ; Anxiety F41.9 and Gastroesophageal reflux disease, esophagitis presence not specified K21.9 [place] [address] [address] 26 Jul, 2018 Friction blister of right lower extremit y, initial encounter S80.821A [place] [address] [address] 06 Jul, 2018 Localized edema R60.0 ; Type 2 diabetes mellitus with diabetic nephropathy E11.21 ; Coronary disease I25.10 and Anxiety F41.9 [place] [address] [address] Jun, [address] [address] March, Type 2 diabetes mellitus with diabetic n ephropathy E11.21 ; 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 ; Chronic kidney disease, stage IV (severe) N18.4 ; Secondary hyperparathyroidism of renal origin N25.81 ; Coronary disease I25.10 and Gastroesophageal reflux disease, esophagitis presence not specified K21.9 [place] [address] [address] Nov, Type 2 diabetes mellitus without complic ations E11.9 ; Coronary disease I25.10 and Essential hypertension I10 [place] [address] [address] May, Diabetes E11.9 [facility] [address] [id number] [place] [address] Apr, Type 2 diabetes mellitus without complic ations E11.9 and Arthritis M19.90 [facility] [address] [place] [id number] [place] [address] March, Diabetes E11.9 [facility] [address] [place] [id number] [place] [address] March, Diabetes E11.9 [facility] [address] [place] [id number] [place] [address] March, [facility] [address] [place] [id number] [place] [address] Feb, Diabetes E11.9 [facility] [address] [place] [id number] [place] [address] Feb, Diabetes E11.9 [facility] [address] [place] [id number] [place] [address] Jan, [facility] [address] [place] [id number] [place] [address] Jan, Diabetes E11.9 [facility] [address] [place] [id number] [place] [address] Jan, Type 2 diabetes mellitus without complic ations E11.9 [facility] [address] [place] [id number] [place] [address] Oct, [facility] [address] [place] [id number] [place] [address] Oct, Gastroesophageal reflux disease, esophag itis presence not specified K21.9 [facility] [address] [place] [id number] [place] [address] Sep, [facility] [address] [place] [id number] [place] [address] Sep, [facility] [address] [place] [id number] [place] [address] Sep, [facility] [address] [id number] [place] [address] Aug, [facility] [address] [place] [id number] [place] [address] Aug, Diabetes E11.9 and Encounter for immuniz ation Z23 [facility] [address] [place] [id number] [place] [address] Aug, [facility] [address] [place] [id number] [place] [address] Jul, [facility] [address] [place] [id number] [place] [address] Jun, [facility] [address] [place] [id number] [place] [address] May, Diabetes E11.9 [facility] [address] [place] [id number] [place] [address] Apr, [facility] [address] [place] [id number] [place] [address] Apr, [facility] [address] [place] [id number] [place] [address] March, [facility] [address] [place] [id number] [place] [address] March, [facility] [address] [place] [id number] [place] [address] Feb, [facility] [address] [place] [id number] [place] [address] Feb, [facility] [address] [id number] [place] [address] 18 Feb, 2016 [facility] [address] [place] [id number] [place] [address] 14 Feb, 2016 [facility] [address] [place] [id number] [place] [address] Feb, [facility] [address] [place] [id number] [place] [address] Feb, Type 2 diabetes mellitus without complic ations E11.9 [facility] [address] [address] Feb, [facility] [address] [address] Jan, [facility] [address] [address] Dec, Eustachian tube dysfunction H69.80 and D iabetes E11.9 [facility] [address] [address] Dec, [place] [address] [address] Dec, [facility] [address] [address] Dec, Type 2 diabetes mellitus without complic ations E11.9 ; Atherosclerotic heart disease of inupiat coronary artery without angina pectoris I25.10 and Diabetes E11.9 [place] [address] [address] Dec, [facility] [address] [address] 05 Dec, 2015 CHF (congestive heart failure) I50.9 [place] [address] [address] Nov, Diabetes E11.9 and Coronary disease I25. 10 [facility] [address] [address] Oct, [facility] [address] [address] Aug, [facility] [address] [address] 23 Jul, 2015 [place] [address] [address] 08 Jul, 2015 DM w/o complication type II 250.00 and S pontaneous bleeding of digits 459.0 [facility] [address] [place] [id number] [place] [address] Apr, [facility] [address] [place] [id number] [place] [address] Apr, [facility] [address] [place] [id number] [place] [address] March, CHF (congestive heart failure) 428.0 and Coronary atherosclerosis of unspecified type of vessel, inupiat or graft 414.00 [facility] [address] [place] [id number] [place] [address] March, [facility] [address] [address] Feb, [facility] [address] [place] [id number] [place] [address] Feb, [facility] [address] [place] [id number] [place] [address] Jan, [facility] [address] [place] [id number] [place] [address] Jan, [facility] [address] [place] [id number] [place] [address] Dec, [facility] [address] [place] [id number] [place] [address] Dec, [facility] [address] [place] [id number] [place] [address] Dec, [facility] [address] [place] [id number] [place] [address] Dec, [facility] [address] [place] [id number] [place] [address] Dec, [facility] [address] [place] [id number] [place] [address] Dec, [facility] [address] [place] [id number] [place] [address] Nov, [facility] [address] [place] [id number] [place] [address] Nov, [facility] [address] [facility] [id number] [place] [address] Oct, [facility] [address] [id number] [place] [address] Sep, [facility] [address] [id number] [place] [address] Sep, [facility] [address] [id number] [place] [address] Sep, [facility] [address] [id number] [place] [address] Sep, [facility] [address] [id number] [place] [address] Jul, [facility] [address] [id number] [place] [address] Jul, [facility] [address] [id number] [place] [address] Jul, [facility] [address] [id number] [place] [address] Jul, [facility] [address] [id number] [place] [address] Jun, [facility] [address] [id number] [place] [address] Jun, [facility] [address] [id number] [place] [address] Jun, [facility] [address] [id number] [place] [address] Jun, [facility] [address] [id number] [place] [address] Apr, [facility] [address] [id number] [place] [address] Apr, [facility] [address] [id number] [place] [address] Apr, [facility] [address] [id number] [place] [address] Apr, [facility] [address] [id number] [place] [address] Dec, [facility] [address] [id number] [place] [address] Dec, [facility] [address] [id number] [place] [address] Dec, [facility] [address] [id number] [place] [address] Dec, [facility] [address] [id number] [place] [address] Dec, [facility] [address] [id number] [place] [address] Dec, [facility] [address] [place] [id number] [place] [address] Nov, [facility] [address] [id number] [place] [address] Nov, [facility] [address] [id number] [place] [address] Sep, [facility] [address] [id number] [place] [address] Sep, [facility] [address] [id number] [place] [address] Sep, [facility] [address] [id number] [place] [address] Sep, [facility] [address] [id number] [place] [address] Sep, [facility] [address] [id number] [place] [address] Aug, [facility] [address] [id number] [place] [address] Aug, [facility] [address] [id number] [place] [address] Aug, [facility] [address] [id number] [place] [address] Aug, [facility] [address] [id number] [place] [address] Jul, [facility] [address] [id number] [place] [address] Jun, [facility] [address] [id number] [place] [address] May, [facility] [address] [facility] [id number] [place] [address] May, [facility] [address] [id number] [place] [address] May, [facility] [address] [id number] [place] [address] Apr, [facility] [address] [id number] [place] [address] Apr, [facility] [address] [id number] [place] [address] March, [facility] [address] [id number] [place] [address] March, [facility] [address] [id number] [place] [address] Feb, [facility] [address] [id number] [place] [address] 15 Feb, 2013 [facility] [address] [id number] [place] [address] Feb, [facility] [address] [id number] [place] [address] Jan, [facility] [address] [id number] [place] [address] Jan, [facility] [address] [id number] [place] [address] Jan, [facility] [address] [id number] [place] [address] Dec, [facility] [address] [id number] [place] [address] Dec, [facility] [address] [id number] [place] [address] Dec, [facility] [address] [id number] [place] [address] Nov, [facility] [address] [id number] [place] [address] Nov, [facility] [address] [id number] [place] [address] Nov, [facility] [address] [id number] [place] [address] Nov, [facility] [address] [id number] [place] [address] Nov, [facility] [address] [id number] [place] [address] Nov, [facility] [address] [id number] [place] [address] Oct, [facility] [address] [id number] [place] [address] Oct, [facility] [address] [id number] [place] [address] Oct, [facility] [address] [id number] [place] [address] Oct, [facility] [address] [id number] [place] [address] Sep, [facility] [address] [place] [id number] [place] [address] Sep, [facility] [address] [id number] [place] [address] Sep, [facility] [address] [place] [id number] [place] [address] Sep, [facility] [address] [id number] [place] [address] Aug, [facility] [address] [id number] [place] [address] Jul, [facility] [address] [id number] [place] [address] Jul, [facility] [address] [id number] [place] [address] Jul, [facility] [address] [id number] [place] [address] Jun, [facility] [address] [id number] [place] [address] Jun, [facility] [address] [id number] [place] [address] Jun, [facility] [id number] [place] [address] May, [facility] [address] [id number] [place] [address] May, [facility] [address] [id number] [place] [address] Apr, [facility] [address] [id number] [place] [address] Apr, [facility] [address] [id number] [place] [address] Apr, [facility] [address] [id number] [place] [address] Apr, [facility] [address] [id number] [place] [address] March, [facility] [address] [id number] [place] [address] March, [facility] [address] [id number] [place] [address] March, [facility] [address] [id number] [place] [address] Jan, [facility] [id number] [place] [address] Jan, [facility] [id number] [place] [address] Jan, [facility] [id number] [place] [address] Nov, [facility] [id number] [place] [address] Nov, [facility] [id number] [place] [address] Nov, [facility] [id number] [place] [address] Nov, [facility] [id number] [place] [address] Oct, [facility] [id number] [place] [address] Oct, [facility] [id number] [place] [address] Oct, [facility] [id number] [place] [address] Oct, [facility] [id number] [place] [address] Oct, [facility] [id number] [place] [address] Oct, [facility] [id number] [place] [address] Oct, IMMUNIZATIONS No Known Immunizations SOCIAL HISTORY Never Assessed REASON FOR VISIT PLAN OF CARE VITAL SIGNS Height 69 in 2014-04-22 Weight 204 lbs 2014-04-22 Temperature 98 degrees Fahrenheit 2014-04-22 Heart Rate 74 bpm 2014-04-22 Respiratory Rate 18 2014-04-22 Blood pressure systolic 132 mmHg 2014-04-22 Blood pressure diastolic 70 mmHg 2014-04-22 MEDICATIONS Unknown Medications RESULTS No Results PROCEDURES Procedure Date Ordered Result Body Site GLYCATED HEMOGLOBIN TEST April 22, 2014 INSTRUCTIONS MEDICATIONS ADMINISTERED No Known Medications MEDICAL (GENERAL) HISTORY Type Description Date Medical History chronic obstructive pulmonary disease (C OPD) Medical History diabetes mellitus Medical History Hypertension Medical History Hyperlipidemia Medical History Stroke syndrome 2006 Surgical History Left leg amputation 1998 Surgical History Cardiothoracic surgery Defibrillator 200 6 Hospitalization History surgeries
--- OUTSIDE RECORDS SUMMARY | 2020-04-18 19:35 | XMS REPORT ---
Author Author Carroll CUNHA Organization [facility] Address [address] [place] [address] Care Team Providers Care Management Engineer Name Role Phone JS CUNHA Unavailable PROBLEMS Type Condition ICD9-CM Code APG04-OV Code Onset Dates Condition S tatus SNOMED Code Problem Arthritis M19.90 Active 4250877 Problem Essential hypertension I10 Active 47996042 Problem Chronic kidney disease, stage IV (severe) N18.4 Active 721547628 Problem Amputated left leg Z89.612 Active 1 [id number] Problem Gastroesophageal reflux disease, esophagitis pre sence not specified K21.9 Active 841565445 Problem Phantom limb pain G54.6 Active 57 01985381712 Problem Coronary disease I25.10 Active 537 62319 Problem correction current use of insulin Z79.4 Active 642279027 Problem Secondary hyperparathyroidism of renal origin N25. 81 Active 52371369 Problem Type 2 diabetes mellitus with diabetic nephropathy E11.21 Active 014092461 Problem Anxiety F41.9 Active [id number] ALLERGIES No Information ENCOUNTERS Encounter Location Date Diagnosis [place] [id number] [facility] [id number] [address] [place] [address] May, Phantom limb pain G54.6 and Amputated left leg Z89.612 [facility] [address] [facility] [id number] [address] [place] [address] Apr, Phantom limb pain G54.6 [facility] [address] [facility] [id number] [address] [place] [address] Apr, [facility] [address] [facility] [id number] [address] [place] [address] Apr, [facility] [address] [facility] [id number] [address] [place] [address] Apr, Nail hypertrophy L60.2 and S [facility] deficit for grooming and hygiene Z74.1 [facility] [address] [place] [id number] [address] [place] [address] March, Type 2 diabetes mellitus wit h diabetic nephropathy E11.21 ; Chronic kidney disease, stage IV (severe) N18.4 ; Anxiety F41.9 and Amputated left leg Z89.612 [facility] [address] [place] [id number] [place] [address] March, Anxiety F41.9 and Transient weakness of right lower extremity R29.898 [place] [address] [place] [id number] [address] [place] [address] March, [place] [address] [place] [id number] [place] [address] March, [place] [address] [address] Feb, [facility] [address] [place] [id number] [address] [place] [address] Aug, Anxiety F41.9 [place] [address] [address] Aug, Medicare annual wellness vis it, initial Z00.00 ; Encounter for immunization Z23 ; Coronary disease I25.10 ; Type 2 diabetes mellitus with diabetic nephropathy E11.21 ; Chronic kidney disease, stage IV (severe) N18.4 ; Secondary hyperparathyroidism of renal origin N25.81 ; Anxiety F41.9 and Gastroesophageal reflux disease, esophagitis presence not specified K21.9 [facility] [address] [place] [id number] [address] [place] [address] 26 Jul, 2018 Friction blister of right lo wer extremity, initial encounter S80.821A [place] [address] [place] [id number] [address] [place] [address] 06 Jul, 2018 Localized edema R60.0 ; Type 2 diabetes mellitus with diabetic nephropathy E11.21 ; Coronary disease I25.10 and Anxiety F41.9 [place] [address] [facility] [id number] [address] [place] [address] Jun, [facility] [address] [facility] [id number] [address] [place] [address] March, Type 2 diabetes mellitus wit h diabetic nephropathy E11.21 ; correction current use of insulin Z79.4 ; Chronic kidney disease, stage IV (severe) N18.4 ; Secondary hyperparathyroidism of renal origin N25.81 ; Coronary disease I25.10 and Gastroesophageal reflux disease, esophagitis presence not specified K21.9 [facility] [address] [facility] [id number] [address] [place] [address] Nov, Type 2 diabetes mellitus wit hout complications E11.9 ; Coronary disease I25.10 and Essential hypertension I10 [facility] [address] [facility] [id number] [address] [place] [address] May, Diabetes E11.9 [facility] [address] [facility] [id number] [address] [place] [address] Apr, Type 2 diabetes mellitus wit hout complications E11.9 and Arthritis M19.90 [facility] [address] [facility] [id number] [address] [place] [address] March, Diabetes E11.9 [facility] [address] [facility] [id number] [address] [place] [address] March, Diabetes E11.9 [facility] [address] [facility] [id number] [address] [place] [address] March, [facility] [address] [facility] [id number] [address] [place] [address] Feb, Diabetes E11.9 [facility] [address] [facility] [id number] [address] [place] [address] Feb, Diabetes E11.9 [facility] [address] [facility] [id number] [address] [place] [address] Jan, [facility] [address] [facility] [id number] [address] [place] [address] Jan, Diabetes E11.9 [facility] [address] [id number] [address] [place] [address] Jan, Type 2 diabetes mellitus wit hout complications E11.9 [facility] [address] [id number] [address] [place] [address] Oct, [facility] [address] [id number] [address] [place] [address] Oct, Gastroesophageal reflux dise ase, esophagitis presence not specified K21.9 [facility] [address] [id number] [address] [place] [address] Sep, [facility] [address] [id number] [address] [place] [address] Sep, [facility] [address] [id number] [address] [place] [address] Sep, [facility] [address] [id number] [address] [place] [address] Aug, [facility] [address] [id number] [address] [place] [address] Aug, Diabetes E11.9 and Encounter for immunization Z23 [facility] [address] [id number] [address] [place] [address] Aug, [facility] [address] [id number] [address] [place] [address] Jul, [facility] [address] [id number] [address] [place] [address] Jun, [facility] [address] [id number] [address] [place] [address] May, Diabetes E11.9 [facility] [address] [id number] [address] [place] [address] Apr, [facility] [address] [id number] [address] [place] [address] Apr, [facility] [address] [id number] [address] [place] [address] March, [facility] [address] [id number] [address] [place] [address] March, [facility] [address] [id number] [address] [place] [address] Feb, [facility] [address] [id number] [address] [place] [address] Feb, [facility] [address] [id number] [address] [place] [address] Feb, [facility] [address] [id number] [address] [place] [address] Feb, [facility] [address] [id number] [address] [place] [address] Feb, [facility] [address] [id number] [address] [place] [address] Feb, Type 2 diabetes mellitus wit hout complications E11.9 [facility] [address] [id number] [address] [place] [address] Feb, [facility] [address] [id number] [address] [place] [address] Jan, [facility] [address] [id number] [address] [place] [address] Dec, Eustachian tube dysfunction H69.80 and Diabetes E11.9 [facility] [address] [id number] [address] [place] [address] Dec, [facility] [address] [id number] [address] [place] [address] Dec, [facility] [address] [id number] [address] [place] [address] Dec, Type 2 diabetes mellitus wit hout complications E11.9 ; Atherosclerotic heart disease of [place] coronary artery without angina pectoris I25.10 and Diabetes E11.9 [facility] [address] [facility] [id number] [address] [place] [address] Dec, [facility] [address] [facility] [id number] [address] [place] [address] Dec, CHF (congestive heart failur e) I50.9 [facility] [address] [facility] [id number] [address] [place] [address] Nov, Diabetes E11.9 and Coronary disease I25.10 [facility] [address] [id number] [address] [place] [address] Oct, [facility] [address] [facility] [id number] [address] [place] [address] Aug, [facility] [address] [place] [id number] [address] [place] [address] Jul, [facility] [address] [place] [id number] [place] [address] Jul, DM w/o complication type II 250.00 and Spontaneous bleeding of digits 459.0 [facility] [address] [place] [id number] [place] [address] Apr, [facility] [address] [place] [id number] [address] [place] [address] Apr, [facility] [address] [place] [id number] [address] [place] [address] March, CHF (congestive heart failur e) 428.0 and Coronary atherosclerosis of unspecified type of vessel, [place] or graft 414.00 [facility] [address] [facility] [id number] [address] [place] [address] March, [facility] [address] [place] [id number] [address] [place] [address] Feb, [facility] [address] [place] [id number] [address] [place] [address] Feb, [facility] [address] [id number] [address] [place] [address], [place] [address] Jan, [facility] [address] [id number] [address] [place] [address], [place] [address] Jan, [facility] [address] [id number] [address] [place] [address], [place] [address] Dec, 2014 [facility] [address] [id number] [address] [place] [address], [place] [address] Dec, 2014 [facility] [address] [id number] [address] [place] [address], [place] [address] Dec, [facility] [address] [id number] [address] [place] [address], [place] [address] Dec, 2014 [facility] [address] [id number] [address] [place] [address], [place] [address] Dec, [facility] [address] [id number] [address] [place] [address], [place] [address] Dec, [facility] [address] [id number] [address] [place] [address], [place] [address] Nov, [facility] [address] [id number] [address] [place] [address], [place] [address] Nov, [facility] [address] [id number] [address] [place] [address], [place] [address] Oct, [facility] [address] [id number] [address] [place] [address] Sep, [facility] [address] [id number] [address] [place] [address], [place] [address] Sep, [facility] [address] [id number] [address] [place] [address], [place] [address] Sep, [facility] [address] [id number] [address] [place] [address] Sep, [facility] [address] [id number] [address] [place] [address], [place] [address] Jul, [facility] [address] [id number] [address] [place] [address], [place] [address] Jul, [facility] [address] [id number] [address] [place] [address], [place] [address] Jul, [facility] [address] [id number] [address] [place] [address], [place] [address] Jul, [facility] [address] [id number] [address] [place] [address], [place] [address] Jun, [facility] [address] [id number] [address] [place] [address], [place] [address] Jun, [facility] [address] [id number] [address] [place] [address], [place] [address] Jun, [facility] [address] [id number] [address] [place] [address], [place] [address] Jun, [facility] [address] [id number] [address] [place] [address], [place] [address] Apr, [facility] [address] [id number] [address] [place] [address], [place] [address] Apr, [facility] [address] [id number] [address] [place] [address], [place] [address] Apr, [facility] [address] [id number] [address] [place] [address], [place] [address] Apr, [facility] [address] [id number] [address] [place] [address], [place] [address] Dec, [facility] [address] [id number] [address] [place] [address], [place] [address] Dec, [facility] [address] [id number] [address] [place] [address], [place] [address] Dec, [facility] [address] [id number] [address] [place] [address], [place] [address] Dec, [facility] [address] [id number] [address] [place] [address], [place] [address] Dec, [facility] [address] [id number] [address] [place] [address], [place] [address] Dec, [facility] [address] [id number] [address] [place] [address], [place] [address] Nov, [facility] [address] [id number] [address] [place] [address], [place] [address] Nov, [facility] [address] [id number] [address] [place] [address], [place] [address] Sep, [facility] [address] [id number] [address] [place] [address], [place] [address] Sep, [facility] [address] [id number] [address] [place] [address], [place] [address] Sep, [facility] [address] [id number] [address] [place] [address], [place] [address] Sep, [facility] [address] [id number] [address] [place] [address], [place] [address] Sep, [facility] [address] [id number] [address] [place] [address], [place] [address] Aug, [facility] [address] [id number] [address] [place] [address], [place] [address] Aug, [facility] [address] [id number] [address] [place] [address] Aug, [facility] [address] [id number] [address] [place] [address], [place] [address] Aug, [facility] [address] [id number] [address] [place] [address], [place] [address] Jul, [facility] [address] [id number] [address] [place] [address] Jun, [facility] [address] [id number] [address] [place] [address] May, [facility] [address] [id number] [address] [place] [address], [place] [address] May, [facility] [address] [id number] [address] [place] [address], [place] [address] May, [facility] [address] [id number] [address] [place] [address], [place] [address] Apr, [facility] [address] [id number] [address] [place] [address], [place] [address] Apr, [facility] [address] [id number] [address] [place] [address], [place] [address] March, [facility] [address] [id number] [address] [place] [address], [place] [address] March, [facility] [address] [id number] [address] [place] [address], [place] [address] Feb, [facility] [address] [id number] [address] [place] [address], [place] [address] Feb, [facility] [address] [id number] [address] [place] [address], [place] [address] Feb, [facility] [address] [id number] [address] [place] [address], [place] [address] Jan, [facility] [address] [id number] [address] [place] [address], [place] [address] Jan, [facility] [address] [id number] [address] [place] [address], [place] [address] Jan, [facility] [address] [id number] [address] [place] [address], [place] [address] Dec, [facility] [address] [id number] [address] [place] [address], [place] [address] Dec, [facility] [address] [id number] [address] [place] [address], [place] [address] Dec, [facility] [address] [id number] [address] [place] [address], [place] [address] Nov, [facility] [address] [id number] [address] [place] [address], [place] [address] Nov, [facility] [address] [id number] [address] [place] [address], [place] [address] Nov, [facility] [address] [id number] [address] [place] [address], [place] [address] Nov, [facility] [address] [id number] [address] [place] [address], [place] [address] Nov, [facility] [address] [id number] [address] [place] [address], [place] [address] Nov, [facility] [address] [id number] [address] [place] [address], [place] [address] Oct, [facility] [address] [id number] [address] [place] [address], [place] [address] Oct, [facility] [address] [id number] [address] [place] [address], [place] [address] Oct, [facility] [address] [id number] [address] [place] [address], [place] [address] Oct, [facility] [address] [id number] [address] [place] [address], [place] [address] Sep, [facility] [address] [id number] [address] [place] [address], [place] [address] Sep, [facility] [address] [id number] [address] [place] [address], [place] [address] Sep, [facility] [address] [id number] [address] [place] [address], [place] [address] Sep, [facility] [address] [id number] [address] [place] [address], [place] [address] Aug, [facility] [address] [id number] [address] [place] [address], [place] [address] Jul, [facility] [address] [id number] [address] [place] [address], [place] [address] Jul, [facility] [address] [id number] [address] [place] [address], [place] [address] Jul, [facility] [address] [id number] [address] [place] [address], [place] [address] Jun, [facility] [address] [id number] [address] [place] [address], [place] [address] Jun, [facility] [address] [id number] [address] [place] [address], [place] [address] Jun, [facility] [address] [id number] [address] [place] [address], [place] [address] May, [facility] [address] [id number] [address] [place] [address], [place] [address] May, [facility] [address] [id number] [address] [place] [address], [place] [address] Apr, [facility] [address] [id number] [address] [place] [address], [place] [address] Apr, [facility] [address] [id number] [address] [place] [address], [place] [address] Apr, [facility] [address] [id number] [address] [place] [address], [place] [address] Apr, [facility] [address] [id number] [address] [place] [address], [place] [address] March, [facility] [address] [id number] [address] [place] [address], [place] [address] March, [facility] [address] [id number] [address] [place] [address], [place] [address] March, [facility] [address] [id number] [address] [place] [address], [place] [address] Jan, [facility] [address] [id number] [address] [place] [address] Jan, [facility] [address] [id number] [address] [place] [address] Jan, [facility] [address] [id number] [address] [place] [address] Nov, [facility] [address] [id number] [address] [place] [address] Nov, [facility] [address] [id number] [address] [place] [id number] Nov, [facility] [address] [id number] [address] [place] [address] Nov, [facility] [address] [id number] [address] [place] [id number] Oct, [facility] [address] [id number] [address] [place] [address] Oct, [facility] [address] [id number] [address] [place] [id number] Oct, [facility] [address] [id number] [address] [place] [id number] Oct, [facility] [address] [id number] [address] [place] [id number] Oct, [facility] [address] [id number] [address] [place] [id number] Oct, [facility] [address] [id number] [address] [place] [id number] Oct, IMMUNIZATIONS No Known Immunizations SOCIAL HISTORY Never Assessed REASON FOR VISIT PLAN OF CARE VITAL SIGNS MEDICATIONS No Known Medications RESULTS No Results PROCEDURES No Known [...]
--- OUTSIDE RECORDS SUMMARY | 2020-04-18 19:35 | XMS REPORT ---
Author Author Carroll CUNHA Organization [facility] Address [address] [place] [address] Care Team Providers Care Refund Specialist Name Role Phone JS CUNHA Unavailable PROBLEMS Type Condition ICD9-CM Code [id number] Code Onset Dates Condition S tatus SNOMED Code Problem Arthritis M19.90 Active 6853985 Problem Essential hypertension I10 Active 26057483 Problem Chronic kidney disease, stage IV (severe) N18.4 Active 722766167 Problem Amputated left leg Z89.612 Active 1 [id number] Problem Gastroesophageal reflux disease, esophagitis pre sence not specified K21.9 Active 842305279 Problem Phantom limb pain G54.6 Active 57 [id number] Problem Coronary disease I25.10 Active 537 83036 Problem FPC current use of insulin Z79.4 Active 074412262 Problem Secondary hyperparathyroidism of renal origin N25. 81 Active 28226464 Problem Type 2 diabetes mellitus with diabetic nephropathy E11.21 Active 207412581 Problem Anxiety F41.9 Active 30273354 ALLERGIES No Information ENCOUNTERS Encounter Location Date Diagnosis [facility] [address] [facility] [id number] [address] [place] [id number] Jul, Anxiety F41.9 [facility] [address] [facility] [id number] [address] [place] [address] May, Phantom limb pain G54.6 and Amputated left leg Z89.612 [facility] [address] [facility] [id number] [address] [place] [address] Apr, Phantom limb pain G54.6 [facility] [address] [facility] [id number] [address] [place] [address] Apr, [facility] [address] [facility] [id number] [address] [place] [address] Apr, [facility] [address] [place] [id number] [address] [place] [address] 04 Apr, 2019 Nail hypertrophy L60.2 and S [facility] deficit for grooming and hygiene Z74.1 [facility] [address] [place] [id number] [address] [place] [address] 16 Mar, 2019 Type 2 diabetes mellitus wit h diabetic nephropathy E11.21 ; Chronic kidney disease, stage IV (severe) N18.4 ; Anxiety F41.9 and Amputated left leg Z89.612 [place] [address] [address] March, Anxiety F41.9 and Transient weakness of right lower extremity R29.898 [place] [address] [place] [id number] [place] [address] March, [place] [address] [address] March, [facility] [address] [address] Feb, [place] [address] [address] Aug, Anxiety F41.9 [place] [address] [address] Aug, Medicare annual wellness vis it, initial Z00.00 ; Encounter for immunization Z23 ; Coronary disease I25.10 ; Type 2 diabetes mellitus with diabetic nephropathy E11.21 ; Chronic kidney disease, stage IV (severe) N18.4 ; Secondary hyperparathyroidism of renal origin N25.81 ; Anxiety F41.9 and Gastroesophageal reflux disease, esophagitis presence not specified K21.9 [place] [address] [place] [id number] [address] [place] [address] 26 Jul, 2018 Friction blister of right lo wer extremity, initial encounter S80.821A [place] [address] [place] [id number] [place] [address] Jul, Localized edema R60.0 ; Type 2 diabetes mellitus with diabetic nephropathy E11.21 ; Coronary disease I25.[address] [facility] [address] [facility] [id number] [address] [place] [address] Jun, [facility] [address] [facility] [id number] [address] [place] [address] March, Type 2 diabetes mellitus wit h diabetic nephropathy E11.21 ; FPC current use of insulin Z79.4 ; Chronic kidney disease, stage IV (severe) N18.4 ; Secondary hyperparathyroidism of renal origin N25.81 ; Coronary disease I25.10 and Gastroesophageal reflux disease, esophagitis presence not specified K21.9 [facility] [address] [facility] [id number] [address] [place] [address] Nov, Type 2 diabetes mellitus wit hout complications E11.9 ; Coronary disease I25.10 and Essential hypertension I10 [place] [address] [facility] [id number] [address] [place] [address] May, Diabetes E11.9 [place] [address] [facility] [id number] [address] [place] [address] Apr, Type 2 diabetes mellitus wit hout complications E11.9 and Arthritis M19.90 [place] [address] [facility] [id number] [address] [place] [address] March, Diabetes E11.9 [place] [address] [facility] [id number] [address] [place] [address] March, Diabetes E11.9 [facility] [address] [facility] [id number] [address] [place] [address] March, [place] [address] [facility] [id number] [address] [place] [address] Feb, Diabetes E11.9 [place] [address] [facility] [id number] [address] [place] [address] Feb, Diabetes E11.9 [facility] [address] [facility] [id number] [address] [place] [address] Jan, [facility] [address] [id number] [address] [place] [address] Jan, Diabetes E11.9 [facility] [address] [id number] [address] [place] [address] Jan, Type 2 diabetes mellitus wit hout complications E11.9 [facility] [address] [id number] [address] [place] [address] Oct, [facility] [address] [id number] [address] [place] [address] Oct, Gastroesophageal reflux dise ase, esophagitis presence not specified K21.9 [facility] [address] [id number] [address] [place] [address] Sep, [facility] [address] [id number] [address] [place] [address] Sep, [facility] [address] [id number] [address] [place] [id number] Sep, [facility] [address] [id number] [address] [place] [address] Aug, [facility] [address] [id number] [address] [place] [address] Aug, Diabetes E11.9 and Encounter for immunization Z23 [facility] [address] [id number] [address] [place] [phone] Aug, [facility] [address] [id number] [address] [place] [address] Jul, [facility] [address] [id number] [address] [place] [address] Jun, [facility] [address] [facility] [id number] [address] [place] [address] May, Diabetes E11.9 [facility] [address] [id number] [address] [place] [id number] Apr, [facility] [address] [id number] [address] [place] [address] Apr, [facility] [address] [id number] [address] [place] [address] March, [facility] [address] [id number] [address] [place] [address] March, [facility] [address] [id number] [address] [place] [address] Feb, [facility] [address] [id number] [address] [place] [address] Feb, [facility] [address] [id number] [address] [place] [id number] [address], [address] [facility] [address] [id number] [address] [place] [address] Feb, [facility] [address] [id number] [address] [place] [address] Feb, [facility] [address] [id number] [address] [place] [address] Feb, Type 2 diabetes mellitus wit hout complications E11.9 [facility] [address] [id number] [address] [place] [address] Feb, [facility] [address] [id number] [place] [address] Jan, [facility] [address] [id number] [address] [place] [address] Dec, Eustachian tube dysfunction H69.[address] [facility] [address] [id number] [address] [place] [address] Dec, [facility] [address] [id number] [address] [place] [address] Dec, [facility] [address] [id number] [address] [place] [address] Dec, Type 2 diabetes mellitus wit hout complications E11.9 ; Atherosclerotic heart disease of [place] coronary artery without angina pectoris I25.[address] [facility] [address] [facility] [id number] [address] [place] [id number] Dec, [facility] [address] [facility] [id number] [address] [place] [address] Dec, CHF (congestive heart failur e) I50.9 [facility] [address] [facility] [id number] [address] [place] [address] Nov, Diabetes E11.9 and Coronary disease I25.10 [place] [address] [facility] [id number] [place] [address] Oct, [facility] [address] [place] [id number] [place] [address] Aug, [facility] [address] [place] [id number] [address] [place] [address] Jul, [facility] [address] [address] Jul, DM w/o complication type II 250.00 and Spontaneous bleeding of digits 459.0 [facility] [address] [place] [id number] [address] [place] [address] Apr, [facility] [address] [place] [id number] [address] [place] [address] Apr, [facility] [address] [place] [id number] [address] [place] [address] March, CHF (congestive heart failur e) 428.0 and Coronary atherosclerosis of unspecified type of vessel, [place] or graft 414.00 [facility] [address] [facility] [id number] [address] [place] [address] March, [facility] [address] [place] [id number] [place] [address] Feb, [facility] [address] [id number] [address] [place] [address], [place] [address] Feb, [facility] [address] [id number] [address] [place] [address], [place] [address] Jan, [facility] [address] [id number] [address] [place] [address], [place] [address] Jan, [facility] [address] [id number] [address] [place] [address], [place] [address] Dec, [facility] [address] [id number] [address] [place] [address], [place] [address] Dec, [facility] [address] [id number] [address] [place] [address], [place] [address] Dec, [facility] [address] [id number] [address] [place] [address], [place] [address] Dec, [facility] [address] [id number] [address] [place] [address], [place] [address] Dec, [facility] [address] [id number] [address] [place] [address], [place] [address] Dec, [facility] [address] [id number] [address] [place] [address], [place] [address] Nov, [facility] [address] [id number] [address] [place] [address], [place] [address] Nov, [facility] [address] [id number] [address] [place] [address], [place] [address] Oct, [facility] [address] [id number] [address] [place] [address], [place] [address] Sep, [facility] [address] [id number] [address] [place] [address], [place] [address] Sep, [facility] [address] [id number] [address] [place] [address], [place] [address] Sep, [facility] [address] [id number] [address] [place] [address], [place] [address] Sep, [facility] [address] [id number] [address] [place] [address], [place] [address] Jul, [facility] [address] [id number] [address] [place] [address], [place] [address] Jul, [facility] [address] [id number] [address] [place] [address], [place] [address] Jul, [facility] [address] [id number] [address] [place] [address], [place] [address] Jul, [facility] [address] [id number] [address] [place] [address], [place] [address] Jun, [facility] [address] [id number] [address] [place] [address], [place] [address] Jun, [facility] [address] [id number] [address] [place] [address], [place] [address] Jun, [facility] [address] [id number] [address] [place] [address], [place] [address] Jun, [facility] [address] [id number] [address] [place] [address], [place] [address] Apr, [facility] [address] [id number] [address] [place] [address], [place] [address] Apr, [facility] [address] [id number] [address] [place] [address], [place] [address] Apr, [facility] [address] [id number] [address] [place] [address], [place] [address] Apr, [facility] [address] [id number] [address] [place] [address], [place] [address] Dec, [facility] [address] [id number] [address] [place] [address], [place] [address] Dec, [facility] [address] [id number] [address] [place] [address], [place] [address] Dec, [facility] [address] [id number] [address] [place] [address], [place] [address] Dec, [facility] [address] [id number] [address] [place] [address], [place] [address] Dec, [facility] [address] [id number] [address] [place] [address], [place] [address] Dec, [facility] [address] [id number] [address] [place] [address], [place] [address] Nov, [facility] [address] [id number] [address] [place] [address], [place] [address] Nov, [facility] [address] [id number] [address] [place] [address], [place] [address] Sep, [facility] [address] [id number] [address] [place] [address], [place] [address] Sep, [facility] [address] [id number] [address] [place] [address], [place] [address] Sep, [facility] [address] [id number] [address] [place] [address], [place] [address] Sep, [facility] [address] [id number] [address] [place] [address] Sep, [facility] [address] [id number] [address] [place] [address], [place] [address] Aug, [facility] [address] [id number] [address] [place] [address] Aug, [facility] [address] [id number] [address] [place] [address], [place] [address] Aug, [facility] [address] [id number] [address] [place] [address] Aug, [facility] [address] [id number] [address] [place] [address], [place] [address] Jul, [facility] [address] [id number] [address] [place] [address], [place] [address] Jun, [facility] [address] [id number] [address] [place] [address], [place] [address] May, [facility] [address] [id number] [address] [place] [address], [place] [address] May, [facility] [address] [id number] [address] [place] [address], [place] [address] May, [facility] [address] [id number] [address] [place] [address], [place] [address] Apr, [facility] [address] [id number] [address] [place] [address], [place] [address] Apr, [facility] [address] [id number] [address] [place] [address], [place] [address] March, [facility] [address] [id number] [address] [place] [address], [place] [address] March, [facility] [address] [id number] [address] [place] [address], [place] [address] Feb, [facility] [address] [id number] [address] [place] [address], [place] [address] Feb, [facility] [address] [id number] [address] [place] [address], [place] [address] Feb, [facility] [address] [id number] [address] [place] [address], [place] [address] Jan, [facility] [address] [id number] [address] [place] [address], [place] [address] Jan, [facility] [address] [id number] [address] [place] [address], [place] [address] 07 Jan, 2013 [facility] [address] [id number] [address] [place] [address], [place] [address] 19 Dec, 2012 [facility] [address] [id number] [address] [place] [address], [place] [address] Dec, [facility] [address] [id number] [address] [place] [address], [place] [address] Dec, [facility] [address] [id number] [address] [place] [address], [place] [address] Nov, [facility] [address] [id number] [address] [place] [address], [place] [address] Nov, [facility] [address] [id number] [address] [place] [address], [place] [address] Nov, [facility] [address] [id number] [address] [place] [address], [place] [address] Nov, [facility] [address] [id number] [address] [place] [address], [place] [address] Nov, [facility] [address] [id number] [address] [place] [address], [place] [address] Nov, [facility] [address] [id number] [address] [place] [address], [place] [address] Oct, [facility] [address] [id number] [address] [place] [address], [place] [address] Oct, [facility] [address] [id number] [address] [place] [address], [place] [address] Oct, [facility] [address] [id number] [address] [place] [address], [place] [address] Oct, [facility] [address] [id number] [address] [place] [address], [place] [address] Sep, [facility] [address] [id number] [address] [place] [address], [place] [address] Sep, [facility] [address] [id number] [address] [place] [address], [place] [address] Sep, [facility] [address] [id number] [address] [place] [address], [place] [address] Sep, [facility] [address] [id number] [address] [place] [address], [place] [address] Aug, [facility] [address] [id number] [address] [place] [address], [place] [address] 24 Jul, 2012 [facility] [address] [id number] [address] [place] [address], [place] [address] Jul, [facility] [address] [id number] [address] [place] [address], [place] [address] Jul, [facility] [address] [id number] [address] [place] [address], [place] [address] Jun, [facility] [address] [id number] [address] [place] [address], [place] [address] Jun, [facility] [address] [id number] [address] [place] [address], [place] [id number] Jun, [facility] [address] [id number] [address] [place] [address], [place] [id number] May, [facility] [address] [id number] [address] [place] [address], [place] [id number] May, [facility] [address] [id number] [address] [place] [address], [place] [id number] Apr, [facility] [address] [id number] [address] [place] [address], [place] [id number] Apr, [facility] [address] [id number] [address] [place] [address], [place] [id number] Apr, [facility] [address] [id number] [address] [place] [address], [place] [id number] Apr, [facility] [address] [id number] [address] [place] [address], [place] [id number] March, [facility] [address] [id number] [address] [place] [address], [place] [id number] March, [facility] [address] [id number] [address] [place] [address], [place] [id number] March, [facility] [address] [id number] [address] [place] [id number] Jan, [facility] [address] [id number] [address] [place] [id number] Jan, [facility] [address] [id number] [address] [place] [id number] Jan, [facility] [address] [id number] [address] [place] [id number] Nov, [facility] [address] [id number] [address] [place] [id number] Nov, [facility] [address] [id number] [address] [place] [id number] Nov, [facility] [address] [id number] [address] [place] [id number] Nov, [facility] [address] [id number] [address] [place] [id number] Oct, [facility] [address] [id number] [address] [place] [id number] Oct, [facility] [address] [id number] [address] [place] [id number] Oct, [facility] [address] [id number] [address] [place] [id number] Oct, [facility] [address] [id number] [address] [place] [id number] Oct, [facility] [address] [id number] [address] [place] [id number] Oct, [facility] [address] [id number] [address] [place] [id number] Oct, IMMUNIZATIONS No Known Immunizations SOCIAL HISTORY [...]
--- OUTSIDE RECORDS SUMMARY | 2020-04-18 19:35 | XMS REPORT ---
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 Name Role Phone JS CUNHA Unavailable PROBLEMS Type Condition ICD9-CM Code IIE33-CY Code Onset Dates Condition S tatus SNOMED Code Problem Arthritis M19.90 Active 8635301 Problem Essential hypertension I10 Active 53640085 Problem Chronic kidney disease, stage IV (severe) N18.4 Active 853163065 Problem Amputated left leg Z89.612 Active 1 [id number] Problem Gastroesophageal reflux disease, esophagitis pre sence not specified K21.9 Active 714225680 Problem Phantom limb pain G54.6 Active 57 42385773480 Problem Coronary disease I25.10 Active 537 58500 Problem longterm current use of insulin Z79.4 Active 528488728 Problem Secondary hyperparathyroidism of renal origin N25. 81 Active 75188346 Problem Type 2 diabetes mellitus with diabetic nephropathy E11.21 Active 381697947 Problem Anxiety F41.9 Active 65130864 ALLERGIES No Information ENCOUNTERS Encounter Location Date Diagnosis [place] [id number] [facility] [id number] [address] [place] [address] May, Phantom limb pain G54.6 and Amputated left leg Z89.612 [facility] [address] [facility] [id number] [address] [place] [address] Apr, Phantom limb pain G54.6 [facility] [address] [facility] [id number] [address] [place] [address] Apr, [facility] [address] [facility] [id number] [address] [place] [address] Apr, [facility] [address] [facility] [id number] [address] [place] [address] Apr, Nail hypertrophy L60.2 and S [facility] deficit for grooming and hygiene Z74.1 [facility] [address] [place] [id number] [address] [place] [address] March, Type 2 diabetes mellitus wit h diabetic nephropathy E11.21 ; Chronic kidney disease, stage IV (severe) N18.4 ; Anxiety F41.9 and Amputated left leg Z89.612 [facility] [address] [place] [id number] [place] [address] March, Anxiety F41.9 and Transient weakness of right lower extremity R29.898 [place] [address] [place] [id number] [address] [place] [address] March, [place] [address] [place] [id number] [place] [address] March, [place] [address] [address] Feb, [facility] [address] [place] [id number] [address] [place] [address] Aug, Anxiety F41.9 [place] [address] [address] Aug, Medicare annual wellness vis it, initial Z00.00 ; Encounter for immunization Z23 ; Coronary disease I25.10 ; Type 2 diabetes mellitus with diabetic nephropathy E11.21 ; Chronic kidney disease, stage IV (severe) N18.4 ; Secondary hyperparathyroidism of renal origin N25.81 ; Anxiety F41.9 and Gastroesophageal reflux disease, esophagitis presence not specified K21.9 [facility] [address] [place] [id number] [address] [place] [address] 26 Jul, 2018 Friction blister of right lo wer extremity, initial encounter S80.821A [place] [address] [place] [id number] [address] [place] [address] 06 Jul, 2018 Localized edema R60.0 ; Type 2 diabetes mellitus with diabetic nephropathy E11.21 ; Coronary disease I25.10 and Anxiety F41.9 [place] [address] [facility] [id number] [address] [place] [address] Jun, [facility] [address] [facility] [id number] [address] [place] [address] March, Type 2 diabetes mellitus wit h diabetic nephropathy E11.21 ; longterm current use of insulin Z79.4 ; Chronic kidney disease, stage IV (severe) N18.4 ; Secondary hyperparathyroidism of renal origin N25.81 ; Coronary disease I25.10 and Gastroesophageal reflux disease, esophagitis presence not specified K21.9 [facility] [address] [facility] [id number] [address] [place] [address] Nov, Type 2 diabetes mellitus wit hout complications E11.9 ; Coronary disease I25.10 and Essential hypertension I10 [facility] [address] [facility] [id number] [address] [place] [address] May, Diabetes E11.9 [facility] [address] [facility] [id number] [address] [place] [address] Apr, Type 2 diabetes mellitus wit hout complications E11.9 and Arthritis M19.90 [facility] [address] [facility] [id number] [address] [place] [address] March, Diabetes E11.9 [facility] [address] [facility] [id number] [address] [place] [address] March, Diabetes E11.9 [facility] [address] [facility] [id number] [address] [place] [address] March, [facility] [address] [facility] [id number] [address] [place] [address] Feb, Diabetes E11.9 [facility] [address] [facility] [id number] [address] [place] [address] Feb, Diabetes E11.9 [facility] [address] [facility] [id number] [address] [place] [address] Jan, [facility] [address] [facility] [id number] [address] [place] [address] Jan, Diabetes E11.9 [facility] [address] [id number] [address] [place] [address] Jan, Type 2 diabetes mellitus wit hout complications E11.9 [facility] [address] [id number] [address] [place] [address] Oct, [facility] [address] [id number] [address] [place] [address] Oct, Gastroesophageal reflux dise ase, esophagitis presence not specified K21.9 [facility] [address] [id number] [address] [place] [address] Sep, [facility] [address] [id number] [address] [place] [address] Sep, [facility] [address] [id number] [address] [place] [address] Sep, [facility] [address] [id number] [address] [place] [address] Aug, [facility] [address] [id number] [address] [place] [address] Aug, Diabetes E11.9 and Encounter for immunization Z23 [facility] [address] [id number] [address] [place] [address] Aug, [facility] [address] [id number] [address] [place] [address] Jul, [facility] [address] [id number] [address] [place] [address] Jun, [facility] [address] [id number] [address] [place] [address] May, Diabetes E11.9 [facility] [address] [id number] [address] [place] [address] Apr, [facility] [address] [id number] [address] [place] [id number] Apr, [facility] [address] [id number] [address] [place] [address] March, [facility] [address] [id number] [address] [place] [address] March, [facility] [address] [id number] [address] [place] [address] Feb, [facility] [address] [id number] [address] [place] [address] Feb, [facility] [address] [id number] [address] [place] [address] Feb, [facility] [address] [id number] [address] [place] [address] Feb, [facility] [address] [id number] [address] [place] [address] Feb, [facility] [address] [id number] [address] [place] [address] Feb, Type 2 diabetes mellitus wit hout complications E11.9 [facility] [address] [id number] [address] [place] [address] Feb, [facility] [address] [id number] [address] [place] [address] Jan, [facility] [address] [id number] [address] [place] [address] Dec, Eustachian tube dysfunction H69.80 and Diabetes E11.9 [facility] [address] [id number] [address] [place] [address] Dec, [facility] [address] [id number] [address] [place] [phone] Dec, [facility] [address] [id number] [address] [place] [address] Dec, Type 2 diabetes mellitus wit hout complications E11.9 ; Atherosclerotic heart disease of ey[place] coronary artery without angina pectoris I25.10 and Diabetes E11.9 [facility] [address] [facility] [id number] [address] [place] [address] Dec, [facility] [address] [facility] [id number] [address] [place] [address] Dec, CHF (congestive heart failur e) I50.9 [facility] [address] [facility] [id number] [address] [place] [address] Nov, Diabetes E11.9 and Coronary disease I25.10 [facility] [address] [id number] [address] [place] [address] Oct, [facility] [address] [facility] [id number] [address] [place] [address] Aug, [facility] [address] [place] [id number] [address] [place] [address] Jul, [facility] [address] [place] [id number] [place] [address] Jul, DM w/o complication type II 250.00 and Spontaneous bleeding of digits 459.0 [facility] [address] [place] [id number] [place] [address] Apr, [facility] [address] [place] [id number] [address] [place] [address] Apr, [facility] [address] [place] [id number] [address] [place] [address] March, CHF (congestive heart failur e) 428.0 and Coronary atherosclerosis of unspecified type of vessel, eyak or graft 414.00 [facility] [address] [facility] [id number] [address] [place] [address] March, [facility] [address] [place] [id number] [address] [place] [address] Feb, [facility] [address] [place] [id number] [address] [place] [address] Feb, [facility] [address] [id number] [address] [place] [address], [place] [address] Jan, [facility] [address] [id number] [address] [place] [address], [place] [address] Jan, [facility] [address] [id number] [address] [place] [address], [place] [address] Dec, 2014 [facility] [address] [id number] [address] [place] [address], [place] [address] Dec, 2014 [facility] [address] [id number] [address] [place] [address], [place] [address] Dec, [facility] [address] [id number] [address] [place] [address], [place] [address] Dec, 2014 [facility] [address] [id number] [address] [place] [address], [place] [address] Dec, [facility] [address] [id number] [address] [place] [address], [place] [address] Dec, [facility] [address] [id number] [address] [place] [address], [place] [address] Nov, [facility] [address] [id number] [address] [place] [address], [place] [address] Nov, [facility] [address] [id number] [address] [place] [address], [place] [address] Oct, [facility] [address] [id number] [address] [place] [address] Sep, [facility] [address] [id number] [address] [place] [address], [place] [address] Sep, [facility] [address] [id number] [address] [place] [address], [place] [address] Sep, [facility] [address] [id number] [address] [place] [address] Sep, [facility] [address] [id number] [address] [place] [address], [place] [address] Jul, [facility] [address] [id number] [address] [place] [address], [place] [address] Jul, [facility] [address] [id number] [address] [place] [address], [place] [address] Jul, [facility] [address] [id number] [address] [place] [address], [place] [address] Jul, [facility] [address] [id number] [address] [place] [address], [place] [address] Jun, [facility] [address] [id number] [address] [place] [address], [place] [address] Jun, [facility] [address] [id number] [address] [place] [address], [place] [address] Jun, [facility] [address] [id number] [address] [place] [address], [place] [address] Jun, [facility] [address] [id number] [address] [place] [address], [place] [address] Apr, [facility] [address] [id number] [address] [place] [address], [place] [address] Apr, [facility] [address] [id number] [address] [place] [address], [place] [address] Apr, [facility] [address] [id number] [address] [place] [address], [place] [address] Apr, [facility] [address] [id number] [address] [place] [address], [place] [address] Dec, [facility] [address] [id number] [address] [place] [address], [place] [address] Dec, [facility] [address] [id number] [address] [place] [address], [place] [address] Dec, [facility] [address] [id number] [address] [place] [address], [place] [address] Dec, [facility] [address] [id number] [address] [place] [address], [place] [address] Dec, [facility] [address] [id number] [address] [place] [address], [place] [address] Dec, [facility] [address] [id number] [address] [place] [address], [place] [address] Nov, [facility] [address] [id number] [address] [place] [address], [place] [address] Nov, [facility] [address] [id number] [address] [place] [address], [place] [address] Sep, [facility] [address] [id number] [address] [place] [address], [place] [address] Sep, [facility] [address] [id number] [address] [place] [address], [place] [address] Sep, [facility] [address] [id number] [address] [place] [address], [place] [address] Sep, [facility] [address] [id number] [address] [place] [address], [place] [address] Sep, [facility] [address] [id number] [address] [place] [address], [place] [address] Aug, [facility] [address] [id number] [address] [place] [address], [place] [address] Aug, [facility] [address] [id number] [address] [place] [address] Aug, [facility] [address] [id number] [address] [place] [address], [place] [address] Aug, [facility] [address] [id number] [address] [place] [address], [place] [address] Jul, [facility] [address] [id number] [address] [place] [address] Jun, [facility] [address] [id number] [address] [place] [address] May, [facility] [address] [id number] [address] [place] [address], [place] [address] May, [facility] [address] [id number] [address] [place] [address], [place] [address] May, [facility] [address] [id number] [address] [place] [address], [place] [address] Apr, [facility] [address] [id number] [address] [place] [address], [place] [address] Apr, [facility] [address] [id number] [address] [place] [address], [place] [address] March, [facility] [address] [id number] [address] [place] [address], [place] [address] March, [facility] [address] [id number] [address] [place] [address], [place] [address] Feb, [facility] [address] [id number] [address] [place] [address], [place] [address] Feb, [facility] [address] [id number] [address] [place] [address], [place] [address] Feb, [facility] [address] [id number] [address] [place] [address], [place] [address] Jan, [facility] [address] [id number] [address] [place] [address], [place] [address] Jan, [facility] [address] [id number] [address] [place] [address], [place] [address] Jan, [facility] [address] [id number] [address] [place] [address], [place] [address] Dec, [facility] [address] [id number] [address] [place] [address], [place] [address] Dec, [facility] [address] [id number] [address] [place] [address], [place] [address] Dec, [facility] [address] [id number] [address] [place] [address], [place] [address] Nov, [facility] [address] [id number] [address] [place] [address], [place] [address] Nov, [facility] [address] [id number] [address] [place] [address], [place] [address] Nov, [facility] [address] [id number] [address] [place] [address], [place] [address] Nov, [facility] [address] [id number] [address] [place] [address], [place] [address] Nov, [facility] [address] [id number] [address] [place] [address], [place] [address] Nov, [facility] [address] [id number] [address] [place] [address], [place] [address] Oct, [facility] [address] [id number] [address] [place] [address], [place] [address] Oct, [facility] [address] [id number] [address] [place] [address], [place] [address] Oct, [facility] [address] [id number] [address] [place] [address], [place] [address] Oct, [facility] [address] [id number] [address] [place] [address], [place] [address] Sep, [facility] [address] [id number] [address] [place] [address], [place] [address] Sep, [facility] [address] [id number] [address] [place] [address], [place] [address] Sep, [facility] [address] [id number] [address] [place] [address], [place] [address] Sep, [facility] [address] [id number] [address] [place] [address], [place] [address] Aug, [facility] [address] [id number] [address] [place] [address], [place] [address] Jul, [facility] [address] [id number] [address] [place] [address], [place] [address] Jul, [facility] [address] [id number] [address] [place] [address], [place] [address] Jul, [facility] [address] [id number] [address] [place] [address], [place] [address] Jun, [facility] [address] [id number] [address] [place] [address], [place] [address] Jun, [facility] [address] [id number] [address] [place] [address], [place] [address] Jun, [facility] [address] [id number] [address] [place] [address], [place] [address] May, [facility] [address] [id number] [address] [place] [address], [place] [address] May, [facility] [address] [id number] [address] [place] [address], [place] [id number] Apr, [facility] [address] [id number] [address] [place] [address], [place] [id number] Apr, [facility] [address] [id number] [address] [place] [address], [place] [id number] Apr, [facility] [address] [id number] [address] [place] [address], [place] [id number] Apr, [facility] [address] [id number] [address] [place] [address], [place] [id number] March, [facility] [address] [id number] [address] [place] [address], [place] [id number] March, [facility] [address] [id number] [address] [place] [address], [place] [id number] March, [facility] [address] [id number] [address] [place] [address], [place] [id number] Jan, [facility] [address] [id number] [address] [place] [id number] 22 Jan, 2012 [facility] [address] [id number] [address] [place] [id number] Jan, [facility] [address] [id number] [address] [place] [id number] Nov, [facility] [address] [id number] [address] [place] [id number] Nov, [facility] [address] [id number] [address] [place] [id number] Nov, [facility] [address] [id number] [address] [place] [id number] Nov, [facility] [address] [id number] [address] [place] [id number] Oct, [facility] [address] [id number] [address] [place] [id number] Oct, [facility] [address] [id number] [address] [place] [id number] Oct, [facility] [address] [id number] [address] [place] [id number] Oct, [facility] [address] [id number] [address] [place] [id number] Oct, [facility] [address] [id number] [address] [place] [id number] Oct, [facility] [address] [id number] [address] [place] [id number] Oct, IMMUNIZATIONS No Known Immunizations SOCIAL HISTORY Never Assessed REASON FOR VISIT PLAN OF CARE VITAL SIGNS Height 69 in 2014-06-17 Weight 198.9 lbs 2014-06-17 Temperature 97.3 degrees Fahrenheit 2014-06-17 Heart Rate 76 bpm 2014-06-17 Respiratory Rate 18 2014-06-17 Blood pressure systolic 122 mmHg 2014-06-17 Blood pressure diastolic 60 mmHg 2014-06-17 MEDICATIONS No Known Medications RESULTS No Results [...]
--- OUTSIDE RECORDS SUMMARY | 2020-04-18 19:35 | XMS REPORT ---
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 Name Role Phone ITZEL WEBB Unavailable PROBLEMS Type Condition ICD9-CM Code ENL25-LD Code Onset Dates Condition S tatus SNOMED Code Problem Arthritis M19.90 Active 3715167 Problem Essential hypertension I10 Active 19333979 Problem Chronic kidney disease, stage IV (severe) N18.4 Active 675932132 Problem Amputated left leg Z89.612 Active 1 [id number] Problem Gastroesophageal reflux disease, esophagitis pre sence not specified K21.9 Active 538661489 Problem Phantom limb pain G54.6 Active 57 36629765555 Problem Coronary disease I25.10 Active 537 21251 Problem correction current use of insulin Z79.4 Active 666670673 Problem Secondary hyperparathyroidism of renal origin N25. 81 Active 48284543 Problem Type 2 diabetes mellitus with diabetic nephropathy E11.21 Active 464898476 Problem Anxiety F41.9 Active 41189901 ALLERGIES No Information ENCOUNTERS Encounter Location Date Diagnosis [place] [id number] [facility] [id number] [address] [place] [phone] Jul, Anxiety F41.9 [facility] [address] [facility] [id number] [address] [place] [address] May, Phantom limb pain G54.6 and Amputated left leg Z89.612 [facility] [address] [facility] [id number] [address] [place] [phone] Apr, Phantom limb pain G54.6 [facility] [address] [facility] [id number] [address] [place] [address] Apr, [facility] [address] [facility] [id number] [address] [place] [address] Apr, [facility] [address] [place] [phone] 04 Apr, 2019 Nail hypertrophy L60.2 and S [facility] deficit for grooming and hygiene Z74.1 [facility] [address] [facility] [id number] [address] [place] [phone] 16 Mar, 2019 Type 2 diabetes mellitus wit h diabetic nephropathy E11.21 ; Chronic kidney disease, stage IV (severe) N18.4 ; Anxiety F41.9 and Amputated left leg Z89.612 [place] [address] [place] [id number] [place] [address] March, Anxiety F41.9 and Transient weakness of right lower extremity R29.898 [place] [address] [place] [id number] [address] [place] [address] March, [place] [address] [address] March, [facility] [address] [place] [address] Feb, [place] [address] [address] Aug, Anxiety F41.9 [place] [address] [place] [id number] [place] [address] Aug, Medicare annual wellness vis it, initial Z00.00 ; Encounter for immunization Z23 ; Coronary disease I25.10 ; Type 2 diabetes mellitus with diabetic nephropathy E11.21 ; Chronic kidney disease, stage IV (severe) N18.4 ; Secondary hyperparathyroidism of renal origin N25.81 ; Anxiety F41.9 and Gastroesophageal reflux disease, esophagitis presence not specified K21.9 [facility] [address] [place] [id number] [address] [place] [id number] 26 Jul, 2018 Friction blister of right lo wer extremity, initial encounter S80.821A [place] [address] [place] [id number] [address] [place] [address] Jul, Localized edema R60.0 ; Type 2 diabetes mellitus with diabetic nephropathy E11.21 ; Coronary disease I25.10 and Anxiety F41.9 [facility] [address] [facility] [id number] [address] [place] [address] Jun, [facility] [address] [place] [id number] [address] [place] [address] March, Type 2 diabetes mellitus wit h diabetic nephropathy E11.21 ; [employer] current use of insulin Z79.4 ; Chronic kidney disease, stage IV (severe) N18.4 ; Secondary hyperparathyroidism of renal origin N25.81 ; Coronary disease I25.10 and Gastroesophageal reflux disease, esophagitis presence not specified K21.9 [facility] [address] [place] [id number] [address] [place] [address] Nov, Type 2 diabetes mellitus wit hout complications E11.9 ; Coronary disease I25.10 and Essential hypertension I10 [place] [address] [place] [id number] [address] [place] [address] May, Diabetes E11.9 [facility] [address] [place] [id number] [address] [place] [address] Apr, Type 2 diabetes mellitus wit hout complications E11.9 and Arthritis M19.90 [facility] [address] [place] [id number] [address] [place] [address] March, Diabetes E11.9 [facility] [address] [place] [id number] [address] [place] [address] March, Diabetes E11.9 [facility] [address] [place] [id number] [address] [place] [address] March, [facility] [address] [place] [id number] [address] [place] [phone] Feb, Diabetes E11.9 [facility] [address] [place] [id number] [address] [place] [phone] Feb, Diabetes E11.9 [facility] [address] [place] [id number] [address] [place] [phone] Jan, [facility] [address] [id number] [address] [place] [phone] Jan, Diabetes E11.9 [facility] [address] [id number] [address] [place] [address] Jan, Type 2 diabetes mellitus wit hout complications E11.9 [facility] [address] [id number] [address] [place] [address] Oct, [facility] [address] [id number] [address] [place] [address] Oct, Gastroesophageal reflux dise ase, esophagitis presence not specified K21.9 [facility] [address] [id number] [address] [place] [address] Sep, [facility] [address] [id number] [address] [place] [phone] Sep, [facility] [address] [id number] [address] [place] [phone] Sep, [facility] [address] [id number] [address] [place] [phone] Aug, [facility] [address] [facility] [id number] [address] [place] [phone] Aug, Diabetes E11.9 and Encounter for immunization Z23 [facility] [address] [id number] [address] [place] [phone] Aug, [facility] [address] [id number] [address] [place] [phone] Jul, [facility] [address] [facility] [id number] [address] [place] [phone] Jun, [facility] [address] [facility] [id number] [address] [place] [address] May, Diabetes E11.9 [facility] [address] [id number] [address] [place] [address] Apr, [facility] [address] [id number] [address] [place] [address] Apr, [facility] [address] [id number] [address] [place] [address] March, [facility] [address] [id number] [address] [place] [phone] March, [facility] [address] [id number] [address] [place] [phone] Feb, [facility] [address] [id number] [address] [place] [phone] Feb, [facility] [address] [id number] [address] [place] [phone] Feb, [facility] [address] [id number] [address] [place] [phone] Feb, [facility] [address] [id number] [address] [place] [phone] Feb, [facility] [address] [id number] [address] [place] [phone] Feb, Type 2 diabetes mellitus wit hout complications E11.9 [facility] [address] [id number] [address] [place] [phone] Feb, [facility] [address] [id number] [address] [place] [phone] Jan, [facility] [address] [id number] [address] [place] [address] Dec, Eustachian tube dysfunction H69.80 and Diabetes E11.9 [facility] [address] [id number] [address] [place] [address] Dec, [facility] [address] [id number] [address] [place] [address] Dec, [facility] [address] [id number] [address] [place] [phone] 10 Dec, 2015 Type 2 diabetes mellitus wit hout complications E11.9 ; Atherosclerotic heart disease of [place] coronary artery without angina pectoris I25.10 and Diabetes E11.9 [facility] [address] [facility] [id number] [address] [place] [phone] 09 Dec, 2015 [facility] [address] [facility] [id number] [address] [place] [phone] 05 Dec, 2015 CHF (congestive heart failur e) I50.9 [facility] [address] [facility] [id number] [address] [place] [address] Nov, Diabetes E11.9 and Coronary disease I25.10 [facility] [address] [place] [id number] [address] [place] [phone] Oct, [facility] [address] [place] [id number] [place] [phone] Aug, [facility] [address] [place] [id number] [address] [place] [phone] Jul, [facility] [address] [address] Jul, DM w/o complication type II 250.00 and Spontaneous bleeding of digits 459.0 [facility] [address] [place] [id number] [address] [place] [id number] Apr, [facility] [address] [place] [id number] [address] [place] [phone] Apr, [facility] [address] [place] [id number] [address] [place] [phone] March, CHF (congestive heart failur e) 428.0 and Coronary atherosclerosis of unspecified type of vessel, [place] or graft 414.00 [facility] [address] [facility] [id number] [address] [place] [phone] March, [facility] [address] [place] [id number] [place] [phone] Feb, [facility] [address] [id number] [address] [place] [address], [place] [address] Feb, [facility] [address] [id number] [address] [place] [address], [place] [address] Jan, [facility] [address] [id number] [address] [place] [address], [place] [address] Jan, [facility] [address] [id number] [address] [place] [address], [place] [address] Dec, [facility] [address] [id number] [address] [place] [address], [place] [address] Dec, [facility] [address] [id number] [address] [place] [address], [place] [address] Dec, [facility] [address] [id number] [address] [place] [address], [place] [address] Dec, [facility] [address] [id number] [address] [place] [address], [place] [address] Dec, [facility] [address] [id number] [address] [place] [address], [place] [address] Dec, [facility] [address] [id number] [address] [place] [address], [place] [address] Nov, [facility] [address] [id number] [address] [place] [address], [place] [address] Nov, [facility] [address] [id number] [address] [place] [address], [place] [address] Oct, [facility] [address] [id number] [address] [place] [address], [place] [address] Sep, [facility] [address] [id number] [address] [place] [address], [place] [address] Sep, [facility] [address] [id number] [address] [place] [address], [place] [address] Sep, [facility] [address] [id number] [address] [place] [address], [place] [address] Sep, [facility] [address] [id number] [address] [place] [address], [place] [address] Jul, [facility] [address] [id number] [address] [place] [address], [place] [address] Jul, [facility] [address] [id number] [address] [place] [address], [place] [address] Jul, [facility] [address] [id number] [address] [place] [address], [place] [address] Jul, [facility] [address] [id number] [address] [place] [address], [place] [address] Jun, [facility] [address] [id number] [address] [place] [address], [place] [address] Jun, [facility] [address] [id number] [address] [place] [address], [place] [address] Jun, [facility] [address] [id number] [address] [place] [address], [place] [address] Jun, [facility] [address] [id number] [address] [place] [address], [place] [address] Apr, [facility] [address] [id number] [address] [place] [address], [place] [address] Apr, [facility] [address] [id number] [address] [place] [address], [place] [address] Apr, [facility] [address] [id number] [address] [place] [address], [place] [address] Apr, [facility] [address] [id number] [address] [place] [address], [place] [address] Dec, [facility] [address] [id number] [address] [place] [address], [place] [address] Dec, [facility] [address] [id number] [address] [place] [address], [place] [address] Dec, [facility] [address] [id number] [address] [place] [address], [place] [address] Dec, [facility] [address] [id number] [address] [place] [address], [place] [address] Dec, [facility] [address] [id number] [address] [place] [address], [place] [address] Dec, [facility] [address] [id number] [address] [place] [address], [place] [address] Nov, [facility] [address] [id number] [address] [place] [address], [place] [address] Nov, [facility] [address] [id number] [address] [place] [address], [place] [address] Sep, [facility] [address] [id number] [address] [place] [address], [place] [address] Sep, [facility] [address] [id number] [address] [place] [address], [place] [address] Sep, [facility] [address] [id number] [address] [place] [address], [place] [address] Sep, [facility] [address] [id number] [address] [place] [address], [place] [address] Sep, [facility] [address] [id number] [address] [place] [address], [place] [address] Aug, [facility] [address] [id number] [address] [place] [address] Aug, [facility] [address] [id number] [address] [place] [address], [place] [address] Aug, [facility] [address] [id number] [address] [place] [address], [place] [address] Aug, [facility] [address] [id number] [address] [place] [address], [place] [address] Jul, [facility] [address] [id number] [address] [place] [address], [place] [address] Jun, [facility] [place] [address] [id number] [address] [place] [address], [place] [address] May, [facility] [place] [address] [id number] [address] [place] [address], [place] [address] May, [facility] [address] [id number] [address] [place] [address], [place] [address] May, [facility] [place] [address] [id number] [address] [place] [address], [place] [address] Apr, [facility] [place] [address] [id number] [address] [place] [address], [place] [address] Apr, [facility] [address] [id number] [address] [place] [address], [place] [address] March, [facility] [address] [id number] [address] [place] [address], [place] [address] March, [facility] [address] [id number] [address] [place] [address], [place] [address] Feb, [facility] [place] [address] [id number] [address] [place] [address], [place] [address] 15 Feb, 2013 [facility] [address] [id number] [address] [place] [address], [place] [address] Feb, [facility] [place] [address] [id number] [address] [place] [address], [place] [address] Jan, [facility] [address] [id number] [address] [place] [address], [place] [address] 18 Jan, 2013 [facility] [place] [address] [id number] [address] [place] [address], [place] [address] 07 Jan, 2013 [facility] [address] [id number] [address] [place] [address], [place] [address] 19 Dec, 2012 [facility] [address] [id number] [address] [place] [address], [place] [address] Dec, [facility] [address] [id number] [address] [place] [address], [place] [address] Dec, [facility] [address] [id number] [address] [place] [address], [place] [address] Nov, [facility] [address] [id number] [address] [place] [address], [place] [address] Nov, [facility] [address] [id number] [address] [place] [address], [place] [address] Nov, [facility] [address] [id number] [address] [place] [address], [place] [address] Nov, [facility] [address] [id number] [address] [place] [address], [place] [address] Nov, [facility] [address] [id number] [address] [place] [address], [place] [address] Nov, [facility] [address] [id number] [address] [place] [address], [place] [address] Oct, [facility] [address] [id number] [address] [place] [address], [place] [address] Oct, [facility] [address] [id number] [address] [place] [address], [place] [address] Oct, [facility] [address] [id number] [address] [place] [address], [place] [address] Oct, [facility] [address] [id number] [address] [place] [address], [place] [address] Sep, [facility] [address] [id number] [address] [place] [address], [place] [address] Sep, [facility] [address] [id number] [address] [place] [address], [place] [address] Sep, [facility] [address] [id number] [address] [place] [address], [place] [address] Sep, [facility] [address] [id number] [address] [place] [address], [place] [address] Aug, [facility] [address] [id number] [address] [place] [address], [place] [address] 24 Jul, 2012 [facility] [address] [id number] [address] [place] [address], [place] [address] Jul, [facility] [address] [id number] [address] [place] [address], [place] [address] Jul, [facility] [address] [id number] [address] [place] [address], [place] [address] Jun, [facility] [address] [id number] [address] [place] [address], [place] [address] Jun, [facility] [address] [id number] [address] [place] [address], [place] [address] Jun, [facility] [address] [id number] [address] [place] [address], [place] [address] May, [facility] [address] [id number] [address] [place] [address], [place] [address] May, [facility] [address] [id number] [address] [place] [address], [place] [address] Apr, [facility] [address] [id number] [address] [place] [address], [place] [address] Apr, [facility] [address] [id number] [address] [place] [address], [place] [address] Apr, [facility] [address] [id number] [address] [place] [address], [place] [address] Apr, [facility] [address] [id number] [address] [place] [address], [place] [address] March, [facility] [address] [id number] [address] [place] [address], [place] [address] March, [facility] [address] [id number] [address] [place] [address], [place] [address] March, [facility] [address] [id number] [address] [place] [address] Jan, [facility] [address] [id number] [address] [place] [address] Jan, [facility] [address] [id number] [address] [place] [id number] Jan, [facility] [address] [id number] [address] [place] [id number] Nov, [facility] [address] [id number] [address] [place] [id number] Nov, [facility] [address] [id number] [address] [place] [id number] Nov, [facility] [address] [id number] [address] [place] [address] Nov, [facility] [address] [id number] [address] [place] [id number] Oct, [facility] [address] [id number] [address] [place] [id number] Oct, [facility] [facility] [address] [id number] [address] [place] [id number] Oct, [facility] [address] [id number] [address] [place] [id number] Oct, [facility] [address] [id number] [address] [place] [phone] Oct, [facility] [address] [id number] [address] [place] [id number] Oct, [facility] [address] [id number] [address] [place] [id number] Oct, IMMUNIZATIONS No Known Immunizations SOCIAL HISTORY [...]
--- OUTSIDE RECORDS SUMMARY | 2020-04-18 19:35 | XMS REPORT ---
Author Author Carroll CUNHA Organization [facility] Address [address] [place] [address] Care Team Providers Care Photographer'S Model Name Role Phone JS CUNHA Unavailable PROBLEMS Type Condition ICD9-CM Code JAV43-NA Code Onset Dates Condition S tatus SNOMED Code Problem Arthritis M19.90 Active 6031931 Problem Essential hypertension I10 Active 40551794 Problem Chronic kidney disease, stage IV (severe) N18.4 Active 355529421 Problem Amputated left leg Z89.612 Active 1 [id number] Problem Gastroesophageal reflux disease, esophagitis pre sence not specified K21.9 Active 933709947 Problem Phantom limb pain G54.6 Active 57 31165209167 Problem Coronary disease I25.10 Active 537 59716 Problem FDC current use of insulin Z79.4 Active 161878844 Problem Secondary hyperparathyroidism of renal origin N25. 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 826301886 Problem Anxiety F41.9 Active 81540752 ALLERGIES No Information ENCOUNTERS Encounter Location Date Diagnosis [place] [address] [facility] [id number] [address] [place] [id number] May, Phantom limb pain G54.6 and Amputated left leg Z89.612 [facility] [address] [facility] [id number] [address] [place] [id number] Apr, Phantom limb pain G54.6 [facility] [address] [facility] [id number] [address] [place] [id number] Apr, [facility] [address] [facility] [id number] [address] [place] [id number] Apr, [facility] [address] [facility] [id number] [address] [place] [id number] Apr, Nail hypertrophy L60.2 and S [facility] deficit for grooming and hygiene Z74.1 [facility] [address] [place] [id number] [address] [place] [phone] March, Type 2 diabetes mellitus wit h diabetic nephropathy E11.21 ; Chronic kidney disease, stage IV (severe) N18.4 ; Anxiety F41.9 and Amputated left leg Z89.612 [facility] [address] [place] [id number] [place] [address] March, Anxiety F41.9 and Transient weakness of right lower extremity R29.898 [place] [address] [place] [id number] [address] [place] [id number] March, [place] [address] [place] [id number] [place] [address] March, [place] [address] [address] Feb, [facility] [address] [place] [id number] [address] [place] [id number] Aug, Anxiety F41.9 [place] [address] [address] Aug, Medicare annual wellness vis it, initial Z00.00 ; Encounter for immunization Z23 ; Coronary disease I25.10 ; Type 2 diabetes mellitus with diabetic nephropathy E11.21 ; Chronic kidney disease, stage IV (severe) N18.4 ; Secondary hyperparathyroidism of renal origin N25.81 ; Anxiety F41.9 and Gastroesophageal reflux disease, esophagitis presence not specified K21.9 [facility] [address] [place] [id number] [address] [place] [id number] 26 Jul, 2018 Friction blister of right lo wer extremity, initial encounter S80.821A [place] [address] [place] [id number] [address] [place] [id number] 06 Jul, 2018 Localized edema R60.0 ; Type 2 diabetes mellitus with diabetic nephropathy E11.21 ; Coronary disease I25.10 and Anxiety F41.9 [place] [address] [facility] [id number] [address] [place] [id number] Jun, [facility] [address] [facility] [id number] [address] [place] [id number] March, Type 2 diabetes mellitus wit h diabetic nephropathy E11.21 ; FDC current use of insulin Z79.4 ; Chronic kidney disease, stage IV (severe) N18.4 ; Secondary hyperparathyroidism of renal origin N25.81 ; Coronary disease I25.10 and Gastroesophageal reflux disease, esophagitis presence not specified K21.9 [facility] [address] [facility] [id number] [address] [place] [id number] Nov, Type 2 diabetes mellitus wit hout complications E11.9 ; Coronary disease I25.10 and Essential hypertension I10 [facility] [address] [facility] [id number] [address] [place] [address] May, Diabetes E11.9 [facility] [address] [facility] [id number] [address] [place] [id number] Apr, Type 2 diabetes mellitus wit hout complications E11.9 and Arthritis M19.90 [facility] [address] [facility] [id number] [address] [place] [id number] March, Diabetes E11.9 [facility] [address] [facility] [id number] [address] [place] [phone] March, Diabetes E11.9 [facility] [address] [facility] [id number] [address] [place] [id number] March, [facility] [address] [facility] [id number] [address] [place] [phone] Feb, Diabetes E11.9 [facility] [address] [facility] [id number] [address] [place] [phone] Feb, Diabetes E11.9 [facility] [address] [facility] [id number] [address] [place] [id number] Jan, [facility] [address] [facility] [id number] [address] [place] [phone] Jan, Diabetes E11.9 [facility] [address] [id number] [address] [place] [id number] Jan, Type 2 diabetes mellitus wit hout complications E11.9 [facility] [address] [id number] [address] [place] [id number] Oct, [facility] [address] [id number] [address] [place] [id number] Oct, Gastroesophageal reflux dise ase, esophagitis presence not specified K21.9 [facility] [address] [id number] [address] [place] [phone] Sep, [facility] [address] [id number] [address] [place] [phone] Sep, [facility] [address] [id number] [address] [place] [phone] Sep, [facility] [address] [id number] [address] [place] [phone] Aug, [facility] [address] [id number] [address] [place] [id number] Aug, Diabetes E11.9 and Encounter for immunization Z23 [facility] [address] [id number] [address] [place] [phone] Aug, [facility] [address] [id number] [address] [place] [phone] Jul, [facility] [address] [id number] [address] [place] [id number] Jun, [facility] [address] [id number] [address] [place] [phone] May, Diabetes E11.9 [facility] [address] [id number] [address] [place] [id number] Apr, [facility] [address] [id number] [address] [place] [id number] Apr, [facility] [address] [id number] [address] [place] [id number] March, [facility] [address] [id number] [address] [place] [id number] March, [facility] [address] [id number] [address] [place] [phone] Feb, [facility] [address] [id number] [address] [place] [id number] Feb, [facility] [address] [id number] [address] [place] [id number] Feb, [facility] [address] [id number] [address] [place] [id number] Feb, [facility] [address] [id number] [address] [place] [id number] Feb, [facility] [address] [id number] [address] [place] [id number] Feb, Type 2 diabetes mellitus wit hout complications E11.9 [facility] [address] [id number] [address] [place] [id number] Feb, [facility] [address] [id number] [address] [place] [id number] Jan, [facility] [address] [id number] [address] [place] [id number] Dec, Eustachian tube dysfunction H69.80 and Diabetes E11.9 [facility] [address] [id number] [address] [place] [id number] Dec, [facility] [address] [id number] [address] [place] [id number] Dec, [facility] [address] [id number] [address] [place] [id number] Dec, Type 2 diabetes mellitus wit hout complications E11.9 ; Atherosclerotic heart disease of [place] coronary artery without angina pectoris I25.10 and Diabetes E11.9 [facility] [address] [facility] [id number] [address] [place] [id number] Dec, [facility] [address] [facility] [id number] [address] [place] [phone] Dec, CHF (congestive heart failur e) I50.9 [facility] [address] [facility] [id number] [address] [place] [id number] Nov, Diabetes E11.9 and Coronary disease I25.10 [facility] [address] [id number] [address] [place] [id number] Oct, [facility] [address] [facility] [id number] [address] [place] [phone] Aug, [facility] [address] [place] [id number] [address] [place] [id number] Jul, [facility] [address] [place] [id number] [place] [address] Jul, DM w/o complication type II 250.00 and Spontaneous bleeding of digits 459.0 [facility] [address] [place] [id number] [place] [address] Apr, [facility] [address] [place] [id number] [address] [place] [id number] Apr, [facility] [address] [place] [id number] [address] [place] [id number] March, CHF (congestive heart failur e) 428.0 and Coronary atherosclerosis of unspecified type of vessel, [place] or graft 414.00 [facility] [address] [facility] [id number] [address] [place] [id number] March, [facility] [address] [place] [id number] [address] [place] [id number] Feb, [facility] [address] [place] [id number] [address] [place] [id number] Feb, [facility] [address] [id number] [address] [place] [address], [place] [address] Jan, [facility] [address] [id number] [address] [place] [address], [place] [address] Jan, [facility] [address] [id number] [address] [place] [address], [place] [id number] Dec, 2014 [facility] [address] [id number] [address] [place] [address], [place] [address] Dec, 2014 [facility] [address] [id number] [address] [place] [address], [place] [address] Dec, [facility] [address] [id number] [address] [place] [address], [place] [address] Dec, 2014 [facility] [address] [id number] [address] [place] [address], [place] [address] Dec, [facility] [address] [id number] [address] [place] [address], [place] [address] Dec, [facility] [address] [id number] [address] [place] [address], [place] [address] Nov, [facility] [address] [id number] [address] [place] [address], [place] [address] Nov, [facility] [address] [id number] [address] [place] [address], [place] [address] Oct, [facility] [address] [id number] [address] [place] [phone] Sep, [facility] [address] [id number] [address] [place] [address], [place] [address] Sep, [facility] [address] [id number] [address] [place] [address], [place] [address] Sep, [facility] [address] [id number] [address] [place] [id number] Sep, [facility] [address] [id number] [address] [place] [address], [place] [id number] Jul, [facility] [address] [id number] [address] [place] [address], [place] [address] Jul, [facility] [address] [id number] [address] [place] [address], [place] [address] Jul, [facility] [address] [id number] [address] [place] [address], [place] [address] Jul, [facility] [address] [id number] [address] [place] [address], [place] [address] Jun, [facility] [address] [id number] [address] [place] [address], [place] [address] Jun, [facility] [address] [id number] [address] [place] [address], [place] [address] Jun, [facility] [address] [id number] [address] [place] [address], [place] [address] Jun, [facility] [address] [id number] [address] [place] [address], [place] [address] Apr, [facility] [address] [id number] [address] [place] [address], [place] [address] Apr, [facility] [address] [id number] [address] [place] [address], [place] [address] Apr, [facility] [address] [id number] [address] [place] [address], [place] [address] Apr, [facility] [address] [id number] [address] [place] [address], [place] [address] Dec, [facility] [address] [id number] [address] [place] [address], [place] [address] Dec, [facility] [address] [id number] [address] [place] [address], [place] [address] Dec, [facility] [address] [id number] [address] [place] [address], [place] [address] Dec, [facility] [address] [id number] [address] [place] [address], [place] [address] Dec, [facility] [address] [id number] [address] [place] [address], [place] [address] Dec, [facility] [address] [id number] [address] [place] [address], [place] [address] Nov, [facility] [address] [id number] [address] [place] [address], [place] [address] Nov, [facility] [address] [id number] [address] [place] [address], [place] [address] Sep, [facility] [address] [id number] [address] [place] [address], [place] [address] Sep, [facility] [address] [id number] [address] [place] [address], [place] [address] Sep, [facility] [address] [id number] [address] [place] [address], [place] [address] Sep, [facility] [address] [id number] [address] [place] [address], [place] [address] Sep, [facility] [address] [id number] [address] [place] [address], [place] [address] Aug, [facility] [address] [id number] [address] [place] [address], [place] [address] Aug, [facility] [address] [id number] [address] [place] [phone] Aug, [facility] [address] [id number] [address] [place] [address], [place] [address] Aug, [facility] [address] [id number] [address] [place] [address], [place] [address] Jul, [facility] [address] [id number] [address] [place] [phone] Jun, [facility] [address] [id number] [address] [place] [id number] May, [facility] [address] [id number] [address] [place] [address], [place] [address] May, [facility] [address] [id number] [address] [place] [address], [place] [address] May, [facility] [address] [id number] [address] [place] [address], [place] [address] Apr, [facility] [address] [id number] [address] [place] [address], [place] [address] Apr, [facility] [address] [id number] [address] [place] [address], [place] [address] March, [facility] [address] [id number] [address] [place] [address], [place] [address] March, [facility] [address] [id number] [address] [place] [address], [place] [address] Feb, [facility] [address] [id number] [address] [place] [address], [place] [address] Feb, [facility] [address] [id number] [address] [place] [address], [place] [address] Feb, [facility] [address] [id number] [address] [place] [address], [place] [address] Jan, [facility] [address] [id number] [address] [place] [address], [place] [address] Jan, [facility] [address] [id number] [address] [place] [address], [place] [address] Jan, [facility] [address] [id number] [address] [place] [address], [place] [address] Dec, [facility] [address] [id number] [address] [place] [address], [place] [address] Dec, [facility] [address] [id number] [address] [place] [address], [place] [address] Dec, [facility] [address] [id number] [address] [place] [address], [place] [address] Nov, [facility] [address] [id number] [address] [place] [address], [place] [address] Nov, [facility] [address] [id number] [address] [place] [address], [place] [address] Nov, [facility] [address] [id number] [address] [place] [address], [place] [address] Nov, [facility] [address] [id number] [address] [place] [address], [place] [address] Nov, [facility] [address] [id number] [address] [place] [address], [place] [address] Nov, [facility] [address] [id number] [address] [place] [address], [place] [address] Oct, [facility] [address] [id number] [address] [place] [address], [place] [address] Oct, [facility] [address] [id number] [address] [place] [address], [place] [address] Oct, [facility] [address] [id number] [address] [place] [address], [place] [address] Oct, [facility] [address] [id number] [address] [place] [address], [place] [address] Sep, [facility] [address] [id number] [address] [place] [address], [place] [address] Sep, [facility] [address] [id number] [address] [place] [address], [place] [address] Sep, [facility] [address] [id number] [address] [place] [address], [place] [address] Sep, [facility] [address] [id number] [address] [place] [address], [place] [address] Aug, [facility] [address] [id number] [address] [place] [address], [place] [id number] Jul, [facility] [address] [id number] [address] [place] [address], [place] [id number] Jul, [facility] [address] [id number] [address] [place] [address], [place] [id number] Jul, [facility] [address] [id number] [address] [place] [address], [place] [id number] Jun, [facility] [address] [id number] [address] [place] [address], [place] [id number] Jun, [facility] [address] [id number] [address] [place] [address], [place] [address] Jun, [facility] [address] [id number] [address] [place] [address], [place] [id number] May, [facility] [address] [id number] [address] [place] [address], [place] [address] May, [facility] [address] [id number] [address] [place] [address], [place] [id number] Apr, [facility] [address] [id number] [address] [place] [address], [place] [id number] Apr, [facility] [address] [id number] [address] [place] [address], [place] [id number] Apr, [facility] [address] [id number] [address] [place] [address], [place] [id number] Apr, [facility] [address] [id number] [address] [place] [address], [place] [id number] March, [facility] [address] [id number] [address] [place] [address], [place] [id number] March, [facility] [address] [id number] [address] [place] [address], [place] [id number] March, [facility] [address] [id number] [address] [place] [address], [place] [address] Jan, [facility] [address] [id number] [address] [place] [id number] Jan, [facility] [address] [id number] [address] [place] [id number] Jan, [facility] [address] [id number] [address] [place] [id number] Nov, [facility] [address] [id number] [address] [place] [id number] Nov, [facility] [address] [id number] [address] [place] [id number] Nov, [facility] [address] [id number] [address] [place] [id number] Nov, [facility] [address] [id number] [address] [place] [id number] Oct, [facility] [address] [id number] [address] [place] [id number] Oct, [facility] [address] [id number] [address] [place] [id number] Oct, [facility] [address] [id number] [address] [place] [id number] Oct, [facility] [address] [id number] [address] [place] [id number] Oct, [facility] [address] [id number] [address] [place] [id number] Oct, [facility] [address] [id number] [address] [place] [address] [address] Oct, IMMUNIZATIONS No Known Immunizations SOCIAL HISTORY [...]
--- OUTSIDE RECORDS SUMMARY | 2020-04-18 19:36 | XMS REPORT ---
Author Author Carroll CUNHA Organization [facility] Address [address] [place] [address] Care Team Providers Care Tag Maker Name Role Phone JS CUNHA Unavailable PROBLEMS Type Condition ICD9-CM Code IFU74-PX Code Onset Dates Condition S tatus SNOMED Code Problem Arthritis M19.90 Active 0470532 Problem Essential hypertension I10 Active 87450054 Problem Chronic kidney disease, stage IV (severe) N18.4 Active 329740417 Problem Amputated left leg Z89.612 Active 1 [id number] Problem Gastroesophageal reflux disease, esophagitis pre sence not specified K21.9 Active 876635848 Problem Phantom limb pain G54.6 Active 57 [id number] Problem Coronary disease I25.10 Active 537 10698 Problem jail current use of insulin Z79.4 Active 891072940 Problem Secondary hyperparathyroidism of renal origin N25. 81 Active 97881834 Problem Type 2 diabetes mellitus with diabetic nephropathy E11.21 Active 660321608 Problem Anxiety F41.9 Active [id number] ALLERGIES No Information ENCOUNTERS Encounter Location Date Diagnosis [place] [address] [facility] [id number] [address] [place] [address] May, Phantom limb pain G54.6 and Amputated left leg Z89.612 [facility] [address] [facility] [id number] [address] [place] [address] Apr, Phantom limb pain G54.6 [facility] [address] [facility] [id number] [address] [place] [address] Apr, [facility] [address] [facility] [id number] [address] [place] [address] Apr, [facility] [address] [facility] [id number] [address] [place] [address] Apr, Nail hypertrophy L60.2 and S [facility] deficit for grooming and hygiene Z74.1 [facility] [address] [place] [id number] [address] [place] [address] March, Type 2 diabetes mellitus wit h diabetic nephropathy E11.21 ; Chronic kidney disease, stage IV (severe) N18.4 ; Anxiety F41.9 and Amputated left leg Z89.612 [facility] [address] [place] [id number] [place] [address] March, Anxiety F41.9 and Transient weakness of right lower extremity R29.898 [place] [address] [place] [id number] [address] [place] [address] March, [place] [address] [place] [id number] [place] [address] March, [place] [address] [address] Feb, [facility] [address] [place] [id number] [address] [place] [address] Aug, Anxiety F41.9 [place] [address] [address] Aug, Medicare annual wellness vis it, initial Z00.00 ; Encounter for immunization Z23 ; Coronary disease I25.10 ; Type 2 diabetes mellitus with diabetic nephropathy E11.21 ; Chronic kidney disease, stage IV (severe) N18.4 ; Secondary hyperparathyroidism of renal origin N25.81 ; Anxiety F41.9 and Gastroesophageal reflux disease, esophagitis presence not specified K21.9 [facility] [address] [place] [id number] [address] [place] [address] 26 Jul, 2018 Friction blister of right lo wer extremity, initial encounter S80.821A [place] [address] [place] [id number] [address] [place] [address] 06 Jul, 2018 Localized edema R60.0 ; Type 2 diabetes mellitus with diabetic nephropathy E11.21 ; Coronary disease I25.10 and Anxiety F41.9 [place] [address] [facility] [id number] [address] [place] [address] Jun, [facility] [address] [facility] [id number] [address] [place] [address] March, Type 2 diabetes mellitus wit h diabetic nephropathy E11.21 ; jail current use of insulin Z79.4 ; Chronic kidney disease, stage IV (severe) N18.4 ; Secondary hyperparathyroidism of renal origin N25.81 ; Coronary disease I25.10 and Gastroesophageal reflux disease, esophagitis presence not specified K21.9 [facility] [address] [facility] [id number] [address] [place] [address] Nov, Type 2 diabetes mellitus wit hout complications E11.9 ; Coronary disease I25.10 and Essential hypertension I10 [facility] [address] [facility] [id number] [address] [place] [address] May, Diabetes E11.9 [facility] [address] [facility] [id number] [address] [place] [address] Apr, Type 2 diabetes mellitus wit hout complications E11.9 and Arthritis M19.90 [facility] [address] [facility] [id number] [address] [place] [address] March, Diabetes E11.9 [facility] [address] [facility] [id number] [address] [place] [address] March, Diabetes E11.9 [facility] [address] [facility] [id number] [address] [place] [address] March, [facility] [address] [facility] [id number] [address] [place] [address] Feb, Diabetes E11.9 [facility] [address] [facility] [id number] [address] [place] [address] Feb, Diabetes E11.9 [facility] [address] [facility] [id number] [address] [place] [address] Jan, [facility] [address] [facility] [id number] [address] [place] [address] Jan, Diabetes E11.9 [facility] [address] [id number] [address] [place] [address] Jan, Type 2 diabetes mellitus wit hout complications E11.9 [facility] [address] [id number] [address] [place] [address] Oct, [facility] [address] [id number] [address] [place] [address] Oct, Gastroesophageal reflux dise ase, esophagitis presence not specified K21.9 [facility] [address] [id number] [address] [place] [address] Sep, [facility] [address] [id number] [address] [place] [address] Sep, [facility] [address] [id number] [address] [place] [address] Sep, [facility] [address] [id number] [address] [place] [address] Aug, [facility] [address] [id number] [address] [place] [address] Aug, Diabetes E11.9 and Encounter for immunization Z23 [facility] [address] [id number] [address] [place] [address] Aug, [facility] [address] [id number] [address] [place] [address] Jul, [facility] [address] [id number] [address] [place] [address] Jun, [facility] [address] [id number] [address] [place] [address] May, Diabetes E11.9 [facility] [address] [id number] [address] [place] [address] Apr, [facility] [address] [id number] [address] [place] [address] Apr, [facility] [address] [id number] [address] [place] [address] March, [facility] [address] [id number] [address] [place] [address] March, [facility] [address] [id number] [address] [place] [address] Feb, [facility] [address] [id number] [address] [place] [address] Feb, [facility] [address] [id number] [address] [place] [address] Feb, [facility] [address] [id number] [address] [place] [address] Feb, [facility] [address] [id number] [address] [place] [address] Feb, [facility] [address] [id number] [address] [place] [address] Feb, Type 2 diabetes mellitus wit hout complications E11.9 [facility] [address] [id number] [address] [place] [phone] Feb, [facility] [address] [id number] [address] [place] [address] Jan, [facility] [address] [id number] [address] [place] [address] Dec, Eustachian tube dysfunction H69.80 and Diabetes E11.9 [facility] [address] [id number] [address] [place] [address] Dec, [facility] [address] [id number] [address] [place] [address] Dec, [facility] [address] [id number] [address] [place] [address] Dec, Type 2 diabetes mellitus wit hout complications E11.9 ; Atherosclerotic heart disease of [place] coronary artery without angina pectoris I25.10 and Diabetes E11.9 [facility] [address] [facility] [id number] [address] [place] [address] Dec, [facility] [address] [facility] [id number] [address] [place] [address] Dec, CHF (congestive heart failur e) I50.9 [facility] [address] [facility] [id number] [address] [place] [address] Nov, Diabetes E11.9 and Coronary disease I25.10 [facility] [address] [id number] [address] [place] [address] Oct, [facility] [address] [facility] [id number] [address] [place] [address] Aug, [facility] [address] [place] [id number] [address] [place] [address] Jul, [facility] [address] [place] [id number] [place] [address] Jul, DM w/o complication type II 250.00 and Spontaneous bleeding of digits 459.0 [facility] [address] [place] [id number] [place] [address] Apr, [facility] [address] [place] [id number] [address] [place] [address] Apr, [facility] [address] [place] [id number] [address] [place] [address] March, CHF (congestive heart failur e) 428.0 and Coronary atherosclerosis of unspecified type of vessel, [place] or graft 414.00 [facility] [address] [facility] [id number] [address] [place] [phone] March, [facility] [address] [place] [id number] [address] [place] [phone] Feb, [facility] [address] [place] [id number] [address] [place] [phone] Feb, [facility] [address] [id number] [address] [place] [address], [place] [address] Jan, [facility] [address] [id number] [address] [place] [address], [place] [address] Jan, [facility] [address] [id number] [address] [place] [address], [place] [address] Dec, 2014 [facility] [address] [id number] [address] [place] [address], [place] [address] Dec, 2014 [facility] [address] [id number] [address] [place] [address], [place] [address] Dec, [facility] [address] [id number] [address] [place] [address], [place] [address] Dec, 2014 [facility] [address] [id number] [address] [place] [address], [place] [address] Dec, [facility] [address] [id number] [address] [place] [address], [place] [address] Dec, [facility] [address] [id number] [address] [place] [address], [place] [address] Nov, [facility] [address] [id number] [address] [place] [address], [place] [address] Nov, [facility] [address] [id number] [address] [place] [address], [place] [address] Oct, [facility] [address] [id number] [address] [place] [phone] Sep, [facility] [address] [id number] [address] [place] [address], [place] [address] Sep, [facility] [address] [id number] [address] [place] [address], [place] [address] Sep, [facility] [address] [id number] [address] [place] [phone] Sep, [facility] [address] [id number] [address] [place] [address], [place] [address] Jul, [facility] [address] [id number] [address] [place] [address], [place] [address] Jul, [facility] [address] [id number] [address] [place] [address], [place] [address] Jul, [facility] [address] [id number] [address] [place] [address], [place] [address] Jul, [facility] [address] [id number] [address] [place] [address], [place] [address] Jun, [facility] [address] [id number] [address] [place] [address], [place] [address] Jun, [facility] [address] [id number] [address] [place] [address], [place] [address] Jun, [facility] [address] [id number] [address] [place] [address], [place] [address] Jun, [facility] [address] [id number] [address] [place] [address], [place] [address] Apr, [facility] [address] [id number] [address] [place] [address], [place] [address] Apr, [facility] [address] [id number] [address] [place] [address], [place] [address] Apr, [facility] [address] [id number] [address] [place] [address], [place] [address] Apr, [facility] [address] [id number] [address] [place] [address], [place] [address] Dec, [facility] [address] [id number] [address] [place] [address], [place] [address] Dec, [facility] [address] [id number] [address] [place] [address], [place] [address] Dec, [facility] [address] [id number] [address] [place] [address], [place] [address] Dec, [facility] [address] [id number] [address] [place] [address], [place] [address] Dec, [facility] [address] [id number] [address] [place] [address], [place] [address] Dec, [facility] [address] [id number] [address] [place] [address], [place] [address] Nov, [facility] [address] [id number] [address] [place] [address], [place] [address] Nov, [facility] [address] [id number] [address] [place] [address], [place] [address] Sep, [facility] [address] [id number] [address] [place] [address], [place] [address] Sep, [facility] [address] [id number] [address] [place] [address], [place] [address] Sep, [facility] [address] [id number] [address] [place] [address], [place] [address] Sep, [facility] [address] [id number] [address] [place] [address], [place] [address] Sep, [facility] [address] [id number] [address] [place] [address], [place] [address] Aug, [facility] [address] [id number] [address] [place] [address], [place] [address] Aug, [facility] [address] [id number] [address] [place] [address] Aug, [facility] [address] [id number] [address] [place] [address], [place] [address] Aug, [facility] [address] [id number] [address] [place] [address], [place] [address] Jul, [facility] [address] [id number] [address] [place] [address] Jun, [facility] [address] [id number] [address] [place] [address] May, [facility] [address] [id number] [address] [place] [address], [place] [address] May, [facility] [address] [id number] [address] [place] [address], [place] [address] May, [facility] [address] [id number] [address] [place] [address], [place] [address] Apr, [facility] [address] [id number] [address] [place] [address], [place] [address] Apr, [facility] [address] [id number] [address] [place] [address], [place] [address] March, [facility] [address] [id number] [address] [place] [address], [place] [address] March, [facility] [address] [id number] [address] [place] [address], [place] [address] Feb, [facility] [address] [id number] [address] [place] [address], [place] [address] Feb, [facility] [address] [id number] [address] [place] [address], [place] [address] Feb, [facility] [address] [id number] [address] [place] [address], [place] [address] Jan, [facility] [address] [id number] [address] [place] [address], [place] [address] Jan, [facility] [address] [id number] [address] [place] [address], [place] [address] Jan, [facility] [address] [id number] [address] [place] [address], [place] [address] Dec, [facility] [address] [id number] [address] [place] [address], [place] [address] Dec, [facility] [address] [id number] [address] [place] [address], [place] [address] Dec, [facility] [address] [id number] [address] [place] [address], [place] [address] Nov, [facility] [address] [id number] [address] [place] [address], [place] [address] Nov, [facility] [address] [id number] [address] [place] [address], [place] [address] Nov, [facility] [address] [id number] [address] [place] [address], [place] [address] Nov, [facility] [address] [id number] [address] [place] [address], [place] [address] Nov, [facility] [address] [id number] [address] [place] [address], [place] [address] Nov, [facility] [address] [id number] [address] [place] [address], [place] [address] Oct, [facility] [address] [id number] [address] [place] [address], [place] [address] Oct, [facility] [address] [id number] [address] [place] [address], [place] [address] Oct, [facility] [address] [id number] [address] [place] [address], [place] [address] Oct, [facility] [address] [id number] [address] [place] [address], [place] [address] Sep, [facility] [address] [id number] [address] [place] [address], [place] [address] Sep, [facility] [address] [id number] [address] [place] [address], [place] [address] Sep, [facility] [address] [id number] [address] [place] [address], [place] [address] Sep, [facility] [address] [id number] [address] [place] [address], [place] [address] Aug, [facility] [address] [id number] [address] [place] [address], [place] [address] Jul, [facility] [address] [id number] [address] [place] [address], [place] [address] Jul, [facility] [address] [id number] [address] [place] [address], [place] [address] Jul, [facility] [address] [id number] [address] [place] [address], [place] [address] Jun, [facility] [address] [id number] [address] [place] [address], [place] [address] Jun, [facility] [address] [id number] [address] [place] [address], [place] [address] Jun, [facility] [address] [id number] [address] [place] [address], [place] [address] May, [facility] [address] [id number] [address] [place] [address], [place] [address] May, [facility] [address] [id number] [address] [place] [address], [place] [address] Apr, [facility] [address] [id number] [address] [place] [address], [place] [address] Apr, [facility] [address] [id number] [address] [place] [address], [place] [address] Apr, [facility] [address] [id number] [address] [place] [address], [place] [address] Apr, [facility] [address] [id number] [address] [place] [address], [place] [address] March, [facility] [address] [id number] [address] [place] [address], [place] [address] March, [facility] [address] [id number] [address] [place] [address], [place] [address] March, [facility] [address] [id number] [address] [place] [address], [place] [address] Jan, [facility] [address] [id number] [address] [place] [phone] Jan, [facility] [address] [id number] [address] [place] [phone] Jan, [facility] [address] [id number] [address] [place] [phone] Nov, [facility] [address] [id number] [address] [place] [phone] Nov, [facility] [address] [id number] [address] [place] [phone] Nov, [facility] [address] [id number] [address] [place] [phone] Nov, [facility] [address] [id number] [address] [place] [phone] Oct, [facility] [address] [id number] [address] [place] [phone] Oct, [facility] [address] [id number] [address] [place] [phone] Oct, [facility] [address] [id number] [address] [place] [id number] Oct, [facility] [address] [id number] [address] [place] [phone] Oct, [facility] [address] [id number] [address] [place] [phone] Oct, [facility] [address] [id number] [address] [place] [phone] Oct, IMMUNIZATIONS No Known Immunizations SOCIAL HISTORY [...]
--- OUTSIDE RECORDS SUMMARY | 2020-04-18 19:36 | XMS REPORT ---
Author Author Carroll CUNHA Organization [facility] Address [address] [place] [address] Care Team Providers Care [facility] Receptionist Name Role Phone JS CUNHA Unavailable PROBLEMS Type Condition ICD9-CM Code SVY88-DR Code Onset Dates Condition S tatus SNOMED Code Problem Arthritis M19.90 Active 1008263 Problem Essential hypertension I10 Active 24843105 Problem Chronic kidney disease, stage IV (severe) N18.4 Active 080741532 Problem Amputated left leg Z89.612 Active 1 [id number] Problem Gastroesophageal reflux disease, esophagitis pre sence not specified K21.9 Active 470973633 Problem Phantom limb pain G54.6 Active 57 15876702049 Problem Coronary disease I25.10 Active 537 95917 Problem long-term current use of insulin Z79.4 Active 647361738 Problem Secondary hyperparathyroidism of renal origin N25. 81 Active 40804600 Problem Type 2 diabetes mellitus with diabetic nephropathy E11.21 Active 877708535 Problem Anxiety F41.9 Active 59653429 ALLERGIES No Information ENCOUNTERS Encounter Location Date Diagnosis [place] [id number] [facility] [id number] [address] [place] [id number] May, Phantom limb pain G54.6 and Amputated left leg Z89.612 [facility] [address] [facility] [id number] [address] [place] [address] Apr, Phantom limb pain G54.6 [facility] [address] [facility] [id number] [address] [place] [address] Apr, [facility] [address] [facility] [id number] [address] [place] [address] Apr, [facility] [address] [facility] [id number] [address] [place] [address] Apr, Nail hypertrophy L60.2 and S [facility] deficit for grooming and hygiene Z74.1 [facility] [address] [place] [id number] [address] [place] [address] March, Type 2 diabetes mellitus wit h diabetic nephropathy E11.21 ; Chronic kidney disease, stage IV (severe) N18.4 ; Anxiety F41.9 and Amputated left leg Z89.612 [facility] [address] [place] [id number] [place] [address] March, Anxiety F41.9 and Transient weakness of right lower extremity R29.898 [place] [address] [place] [id number] [address] [place] [address] March, [place] [address] [place] [id number] [place] [address] March, [place] [address] [address] Feb, [facility] [address] [place] [id number] [address] [place] [address] Aug, Anxiety F41.9 [place] [address] [address] Aug, Medicare annual wellness vis it, initial Z00.00 ; Encounter for immunization Z23 ; Coronary disease I25.10 ; Type 2 diabetes mellitus with diabetic nephropathy E11.21 ; Chronic kidney disease, stage IV (severe) N18.4 ; Secondary hyperparathyroidism of renal origin N25.81 ; Anxiety F41.9 and Gastroesophageal reflux disease, esophagitis presence not specified K21.9 [facility] [address] [place] [id number] [address] [place] [id number] 26 Jul, 2018 Friction blister of right lo wer extremity, initial encounter S80.821A [place] [address] [place] [id number] [address] [place] [id number] 06 Jul, 2018 Localized edema R60.0 ; Type 2 diabetes mellitus with diabetic nephropathy E11.21 ; Coronary disease I25.10 and Anxiety F41.9 [place] [id number] [facility] [id number] [address] [place] [address] Jun, [facility] [address] [facility] [id number] [address] [place] [address] March, Type 2 diabetes mellitus wit h diabetic nephropathy E11.21 ; long-term current use of insulin Z79.4 ; Chronic kidney disease, stage IV (severe) N18.4 ; Secondary hyperparathyroidism of renal origin N25.81 ; Coronary disease I25.10 and Gastroesophageal reflux disease, esophagitis presence not specified K21.9 [facility] [address] [facility] [id number] [address] [place] [address] Nov, Type 2 diabetes mellitus wit hout complications E11.9 ; Coronary disease I25.10 and Essential hypertension I10 [facility] [address] [facility] [id number] [address] [place] [address] May, Diabetes E11.9 [facility] [address] [facility] [id number] [address] [place] [address] Apr, Type 2 diabetes mellitus wit hout complications E11.9 and Arthritis M19.90 [facility] [address] [facility] [id number] [address] [place] [address] March, Diabetes E11.9 [facility] [address] [facility] [id number] [address] [place] [address] March, Diabetes E11.9 [facility] [address] [facility] [id number] [address] [place] [address] March, [facility] [address] [facility] [id number] [address] [place] [address] Feb, Diabetes E11.9 [facility] [address] [facility] [id number] [address] [place] [address] Feb, Diabetes E11.9 [facility] [address] [facility] [id number] [address] [place] [address] Jan, [facility] [address] [facility] [id number] [address] [place] [address] Jan, Diabetes E11.9 [facility] [address] [id number] [address] [place] [address] Jan, Type 2 diabetes mellitus wit hout complications E11.9 [facility] [address] [id number] [address] [place] [address] Oct, [facility] [address] [id number] [address] [place] [address] Oct, Gastroesophageal reflux dise ase, esophagitis presence not specified K21.9 [facility] [address] [id number] [address] [place] [address] Sep, [facility] [address] [id number] [address] [place] [address] Sep, [facility] [address] [id number] [address] [place] [address] Sep, [facility] [address] [id number] [address] [place] [address] Aug, [facility] [address] [id number] [address] [place] [address] Aug, Diabetes E11.9 and Encounter for immunization Z23 [facility] [address] [id number] [address] [place] [address] Aug, [facility] [address] [id number] [address] [place] [address] Jul, [facility] [address] [id number] [address] [place] [address] Jun, [facility] [address] [id number] [address] [place] [address] May, Diabetes E11.9 [facility] [address] [id number] [address] [place] [address] Apr, [facility] [address] [id number] [address] [place] [address] Apr, [facility] [address] [id number] [address] [place] [address] March, [facility] [address] [id number] [address] [place] [address] March, [facility] [address] [id number] [address] [place] [address] Feb, [facility] [address] [id number] [address] [place] [address] Feb, [facility] [address] [id number] [address] [place] [address] Feb, [facility] [address] [id number] [address] [place] [address] Feb, [facility] [address] [id number] [address] [place] [phone] Feb, [facility] [address] [id number] [address] [place] [address] Feb, Type 2 diabetes mellitus wit hout complications E11.9 [facility] [address] [id number] [address] [place] [phone] Feb, [facility] [address] [id number] [address] [place] [address] Jan, [facility] [address] [id number] [address] [place] [id number] Dec, Eustachian tube dysfunction H69.80 and Diabetes E11.9 [facility] [address] [id number] [address] [place] [address] Dec, [facility] [address] [id number] [address] [place] [address] Dec, [facility] [address] [id number] [address] [place] [address] Dec, Type 2 diabetes mellitus wit hout complications E11.9 ; Atherosclerotic heart disease of [place] coronary artery without angina pectoris I25.10 and Diabetes E11.9 [facility] [address] [facility] [id number] [address] [place] [phone] Dec, [facility] [address] [facility] [id number] [address] [place] [phone] Dec, CHF (congestive heart failur e) I50.9 [facility] [address] [facility] [id number] [address] [place] [address] Nov, Diabetes E11.9 and Coronary disease I25.10 [facility] [address] [id number] [address] [place] [address] Oct, [facility] [address] [facility] [id number] [address] [place] [id number] Aug, [facility] [address] [place] [id number] [address] [place] [id number] Jul, [facility] [address] [place] [id number] [place] [address] Jul, DM w/o complication type II 250.00 and Spontaneous bleeding of digits 459.0 [facility] [address] [place] [id number] [place] [address] Apr, [facility] [address] [place] [id number] [address] [place] [address] Apr, [facility] [address] [place] [id number] [address] [place] [phone] March, CHF (congestive heart failur e) 428.0 and Coronary atherosclerosis of unspecified type of vessel, [place] or graft 414.00 [facility] [address] [facility] [id number] [address] [place] [id number] March, [facility] [address] [place] [id number] [address] [place] [phone] Feb, [facility] [address] [place] [id number] [address] [place] [phone] Feb, [facility] [address] [id number] [address] [place] [address], [place] [address] Jan, [facility] [address] [id number] [address] [place] [address], [place] [address] Jan, [facility] [address] [id number] [address] [place] [address], [place] [address] Dec, 2014 [facility] [address] [id number] [address] [place] [address], [place] [address] Dec, 2014 [facility] [address] [id number] [address] [place] [address], [place] [address] Dec, [facility] [address] [id number] [address] [place] [address], [place] [address] Dec, 2014 [facility] [address] [id number] [address] [place] [address], [place] [address] Dec, [facility] [address] [id number] [address] [place] [address], [place] [address] Dec, [facility] [address] [id number] [address] [place] [address], [place] [address] Nov, [facility] [address] [id number] [address] [place] [address], [place] [address] Nov, [facility] [address] [id number] [address] [place] [address], [place] [address] Oct, [facility] [address] [id number] [address] [place] [phone] Sep, [facility] [address] [id number] [address] [place] [address], [place] [address] Sep, [facility] [address] [id number] [address] [place] [address], [place] [address] Sep, [facility] [address] [id number] [address] [place] [phone] Sep, [facility] [address] [id number] [address] [place] [address], [place] [address] Jul, [facility] [address] [id number] [address] [place] [address], [place] [address] Jul, [facility] [address] [id number] [address] [place] [address], [place] [address] Jul, [facility] [address] [id number] [address] [place] [address], [place] [address] Jul, [facility] [address] [id number] [address] [place] [address], [place] [address] Jun, [facility] [address] [id number] [address] [place] [address], [place] [address] Jun, [facility] [address] [id number] [address] [place] [address], [place] [address] Jun, [facility] [address] [id number] [address] [place] [address], [place] [address] Jun, [facility] [address] [id number] [address] [place] [address], [place] [address] Apr, [facility] [address] [id number] [address] [place] [address], [place] [address] Apr, [facility] [address] [id number] [address] [place] [address], [place] [address] Apr, [facility] [address] [id number] [address] [place] [address], [place] [address] Apr, [facility] [address] [id number] [address] [place] [address], [place] [address] Dec, [facility] [address] [id number] [address] [place] [address], [place] [address] Dec, [facility] [address] [id number] [address] [place] [address], [place] [address] Dec, [facility] [address] [id number] [address] [place] [address], [place] [address] Dec, [facility] [address] [id number] [address] [place] [address], [place] [address] Dec, [facility] [address] [id number] [address] [place] [address], [place] [address] Dec, [facility] [address] [id number] [address] [place] [address], [place] [address] Nov, [facility] [address] [id number] [address] [place] [address], [place] [address] Nov, [facility] [address] [id number] [address] [place] [address], [place] [address] Sep, [facility] [address] [id number] [address] [place] [address], [place] [address] Sep, [facility] [address] [id number] [address] [place] [address], [place] [address] Sep, [facility] [address] [id number] [address] [place] [address], [place] [address] Sep, [facility] [address] [id number] [address] [place] [address], [place] [address] Sep, [facility] [address] [id number] [address] [place] [address], [place] [address] Aug, [facility] [address] [id number] [address] [place] [address], [place] [address] Aug, [facility] [address] [id number] [address] [place] [address] Aug, [facility] [address] [id number] [address] [place] [address], [place] [address] Aug, [facility] [address] [id number] [address] [place] [address], [place] [address] Jul, [facility] [address] [id number] [address] [place] [address] Jun, [facility] [address] [id number] [address] [place] [address] May, [facility] [address] [id number] [address] [place] [address], [place] [address] May, [facility] [address] [id number] [address] [place] [address], [place] [address] May, [facility] [address] [id number] [address] [place] [address], [place] [address] Apr, [facility] [address] [id number] [address] [place] [address], [place] [address] Apr, [facility] [address] [id number] [address] [place] [address], [place] [address] March, [facility] [address] [id number] [address] [place] [address], [place] [address] March, [facility] [address] [id number] [address] [place] [address], [place] [address] Feb, [facility] [address] [id number] [address] [place] [address], [place] [address] Feb, [facility] [address] [id number] [address] [place] [address], [place] [address] Feb, [facility] [address] [id number] [address] [place] [address], [place] [address] Jan, [facility] [address] [id number] [address] [place] [address], [place] [address] Jan, [facility] [address] [id number] [address] [place] [address], [place] [address] Jan, [facility] [address] [id number] [address] [place] [address], [place] [address] Dec, [facility] [address] [id number] [address] [place] [address], [place] [address] Dec, [facility] [address] [id number] [address] [place] [address], [place] [address] Dec, [facility] [address] [id number] [address] [place] [address], [place] [address] Nov, [facility] [address] [id number] [address] [place] [address], [place] [address] Nov, [facility] [address] [id number] [address] [place] [address], [place] [address] Nov, [facility] [address] [id number] [address] [place] [address], [place] [address] Nov, [facility] [address] [id number] [address] [place] [address], [place] [address] Nov, [facility] [address] [id number] [address] [place] [address], [place] [address] Nov, [facility] [address] [id number] [address] [place] [address], [place] [address] Oct, [facility] [address] [id number] [address] [place] [address], [place] [address] Oct, [facility] [address] [id number] [address] [place] [address], [place] [address] Oct, [facility] [address] [id number] [address] [place] [address], [place] [address] Oct, [facility] [address] [id number] [address] [place] [address], [place] [address] Sep, [facility] [address] [id number] [address] [place] [address], [place] [address] Sep, [facility] [address] [id number] [address] [place] [address], [place] [address] Sep, [facility] [address] [id number] [address] [place] [address], [place] [address] Sep, [facility] [address] [id number] [address] [place] [address], [place] [address] Aug, [facility] [address] [id number] [address] [place] [address], [place] [address] Jul, [facility] [address] [id number] [address] [place] [address], [place] [address] Jul, [facility] [address] [id number] [address] [place] [address], [place] [address] Jul, [facility] [address] [id number] [address] [place] [address], [place] [address] Jun, [facility] [address] [id number] [address] [place] [address], [place] [address] Jun, [facility] [address] [id number] [address] [place] [address], [place] [address] Jun, [facility] [address] [id number] [address] [place] [address], [place] [address] May, [facility] [address] [id number] [address] [place] [address], [place] [address] May, [facility] [address] [id number] [address] [place] [address], [place] [address] Apr, [facility] [address] [id number] [address] [place] [address], [place] [address] Apr, [facility] [address] [id number] [address] [place] [address], [place] [address] Apr, [facility] [address] [id number] [address] [place] [address], [place] [address] Apr, [facility] [address] [id number] [address] [place] [address], [place] [address] March, [facility] [address] [id number] [address] [place] [address], [place] [address] March, [facility] [address] [id number] [address] [place] [address], [place] [address] March, [facility] [address] [id number] [address] [place] [address], [place] [address] Jan, [facility] [address] [id number] [address] [place] [id number] Jan, [facility] [address] [id number] [address] [place] [id number] Jan, [facility] [address] [id number] [address] [place] [id number] Nov, [facility] [address] [id number] [address] [place] [id number] Nov, [facility] [address] [id number] [address] [place] [id number] Nov, [facility] [address] [id number] [address] [place] [id number] Nov, [facility] [address] [id number] [address] [place] [id number] Oct, [facility] [address] [id number] [address] [place] [id number] Oct, [facility] [address] [id number] [address] [place] [id number] Oct, [facility] [address] [id number] [address] [place] [id number] Oct, [facility] [address] [id number] [address] [place] [id number] Oct, [facility] [address] [id number] [address] [place] [id number] Oct, [facility] [address] [id number] [address] [place] [id number] Oct, IMMUNIZATIONS No Known Immunizations SOCIAL HISTORY [...]
--- OUTSIDE RECORDS SUMMARY | 2020-04-18 19:36 | XMS REPORT ---
Author Author Carroll CUNHA Organization [facility] Address [address] [place] [address] Care Team Providers Care Clerical Assigner Name Role Phone JS CUNHA Unavailable PROBLEMS Type Condition ICD9-CM Code [id number] Code Onset Dates Condition S tatus SNOMED Code Problem Arthritis M19.90 Active 5279155 Problem Essential hypertension I10 Active 04737332 Problem Chronic kidney disease, stage IV (severe) N18.4 Active 978743206 Problem Amputated left leg Z89.612 Active 1 [id number] Problem Gastroesophageal reflux disease, esophagitis pre sence not specified K21.9 Active 507181556 Problem Phantom limb pain G54.6 Active 57 [id number] Problem Coronary disease I25.10 Active 537 15014 Problem half-way current use of insulin Z79.4 Active 298694823 Problem Secondary hyperparathyroidism of renal origin N25. 81 Active 45321809 Problem Type 2 diabetes mellitus with diabetic nephropathy E11.21 Active 520203539 Problem Anxiety F41.9 Active 98472231 ALLERGIES No Information ENCOUNTERS Encounter Location Date Diagnosis [place] [address] [facility] [id number] [address] [place] [address] May, Phantom limb pain G54.6 and Amputated left leg Z89.612 [facility] [address] [facility] [id number] [address] [place] [address] Apr, Phantom limb pain G54.6 [facility] [address] [facility] [id number] [address] [place] [phone] Apr, [facility] [address] [facility] [id number] [address] [place] [phone] Apr, [facility] [address] [facility] [id number] [address] [place] [id number] Apr, Nail hypertrophy L60.2 and S [facility] deficit for grooming and hygiene Z74.1 [facility] [address] [place] [id number] [address] [place] [address] March, Type 2 diabetes mellitus wit h diabetic nephropathy E11.21 ; Chronic kidney disease, stage IV (severe) N18.4 ; Anxiety F41.9 and Amputated left leg Z89.612 [facility] [address] [place] [id number] [place] [address] March, Anxiety F41.9 and Transient weakness of right lower extremity R29.898 [place] [address] [place] [id number] [address] [place] [address] March, [place] [address] [place] [id number] [place] [address] March, [place] [address] [address] Feb, [facility] [address] [place] [id number] [address] [place] [address] Aug, Anxiety F41.9 [place] [address] [address] Aug, Medicare annual wellness vis it, initial Z00.00 ; Encounter for immunization Z23 ; Coronary disease I25.10 ; Type 2 diabetes mellitus with diabetic nephropathy E11.21 ; Chronic kidney disease, stage IV (severe) N18.4 ; Secondary hyperparathyroidism of renal origin N25.81 ; Anxiety F41.9 and Gastroesophageal reflux disease, esophagitis presence not specified K21.9 [facility] [address] [place] [id number] [address] [place] [phone] 26 Jul, 2018 Friction blister of right lo wer extremity, initial encounter S80.821A [place] [address] [place] [id number] [address] [place] [phone] 06 Jul, 2018 Localized edema R60.0 ; Type 2 diabetes mellitus with diabetic nephropathy E11.21 ; Coronary disease I25.10 and Anxiety F41.9 [place] [address] [facility] [id number] [address] [place] [phone] Jun, [facility] [address] [facility] [id number] [address] [place] [address] March, Type 2 diabetes mellitus wit h diabetic nephropathy E11.21 ; half-way current use of insulin Z79.4 ; Chronic kidney disease, stage IV (severe) N18.4 ; Secondary hyperparathyroidism of renal origin N25.81 ; Coronary disease I25.10 and Gastroesophageal reflux disease, esophagitis presence not specified K21.9 [facility] [address] [facility] [id number] [address] [place] [address] Nov, Type 2 diabetes mellitus wit hout complications E11.9 ; Coronary disease I25.10 and Essential hypertension I10 [facility] [address] [facility] [id number] [address] [place] [phone] May, Diabetes E11.9 [facility] [address] [facility] [id number] [address] [place] [address] Apr, Type 2 diabetes mellitus wit hout complications E11.9 and Arthritis M19.90 [facility] [address] [facility] [id number] [address] [place] [address] March, Diabetes E11.9 [facility] [address] [facility] [id number] [address] [place] [phone] March, Diabetes E11.9 [facility] [address] [facility] [id number] [address] [place] [id number] March, [facility] [address] [facility] [id number] [address] [place] [address] Feb, Diabetes E11.9 [facility] [address] [facility] [id number] [address] [place] [address] Feb, Diabetes E11.9 [facility] [address] [facility] [id number] [address] [place] [phone] Jan, [facility] [address] [facility] [id number] [address] [place] [address] Jan, Diabetes E11.9 [facility] [address] [id number] [address] [place] [address] Jan, Type 2 diabetes mellitus wit hout complications E11.9 [facility] [address] [id number] [address] [place] [phone] Oct, [facility] [address] [id number] [address] [place] [address] Oct, Gastroesophageal reflux dise ase, esophagitis presence not specified K21.9 [facility] [address] [id number] [address] [place] [phone] Sep, [facility] [address] [id number] [address] [place] [phone] Sep, [facility] [address] [id number] [address] [place] [phone] Sep, [facility] [address] [id number] [address] [place] [phone] Aug, [facility] [address] [id number] [address] [place] [phone] Aug, Diabetes E11.9 and Encounter for immunization Z23 [facility] [address] [id number] [address] [place] [phone] Aug, [facility] [address] [id number] [address] [place] [phone] Jul, [facility] [address] [id number] [address] [place] [phone] Jun, [facility] [address] [id number] [address] [place] [address] May, Diabetes E11.9 [facility] [address] [id number] [address] [place] [phone] Apr, [facility] [address] [id number] [address] [place] [phone] Apr, [facility] [address] [id number] [address] [place] [id number] March, [facility] [address] [id number] [address] [place] [phone] March, [facility] [address] [id number] [address] [place] [phone] Feb, [facility] [address] [id number] [address] [place] [address] Feb, [facility] [address] [id number] [address] [place] [address] Feb, [facility] [address] [id number] [address] [place] [id number] Feb, [facility] [address] [id number] [address] [place] [phone] Feb, [facility] [address] [id number] [address] [place] [address] Feb, Type 2 diabetes mellitus wit hout complications E11.9 [facility] [address] [id number] [address] [place] [phone] Feb, [facility] [address] [id number] [address] [place] [phone] Jan, [facility] [address] [id number] [address] [place] [address] Dec, Eustachian tube dysfunction H69.80 and Diabetes E11.9 [facility] [address] [id number] [address] [place] [id number] Dec, [facility] [address] [id number] [address] [place] [phone] Dec, [facility] [address] [id number] [address] [place] [id number] Dec, Type 2 diabetes mellitus wit hout complications E11.9 ; Atherosclerotic heart disease of [place]qu[place] coronary artery without angina pectoris I25.10 and Diabetes E11.9 [facility] [address] [facility] [id number] [address] [place] [phone] Dec, [facility] [address] [facility] [id number] [address] [place] [phone] Dec, CHF (congestive heart failur e) I50.9 [facility] [address] [facility] [id number] [address] [place] [address] Nov, Diabetes E11.9 and Coronary disease I25.10 [facility] [address] [id number] [address] [place] [address] Oct, [facility] [address] [facility] [id number] [address] [place] [phone] Aug, [facility] [address] [place] [id number] [address] [place] [id number] Jul, [facility] [address] [place] [id number] [place] [address] Jul, DM w/o complication type II 250.00 and Spontaneous bleeding of digits 459.0 [facility] [address] [place] [id number] [place] [address] Apr, [facility] [address] [place] [id number] [address] [place] [phone] Apr, [facility] [address] [place] [id number] [address] [place] [phone] March, CHF (congestive heart failur e) 428.0 and Coronary atherosclerosis of unspecified type of vessel, coqu[place] or graft 414.00 [facility] [address] [facility] [id number] [address] [place] [id number] March, [facility] [address] [place] [id number] [address] [place] [phone] Feb, [facility] [address] [place] [id number] [address] [place] [id number] Feb, [facility] [address] [id number] [address] [place] [address], [place] [address] Jan, [facility] [address] [id number] [address] [place] [address], [place] [address] Jan, [facility] [address] [id number] [address] [place] [address], [place] [address] Dec, 2014 [facility] [address] [id number] [address] [place] [address], [place] [address] Dec, 2014 [facility] [address] [id number] [address] [place] [address], [place] [address] Dec, [facility] [address] [id number] [address] [place] [address], [place] [address] Dec, 2014 [facility] [address] [id number] [address] [place] [address], [place] [address] Dec, [facility] [address] [id number] [address] [place] [address], [place] [address] Dec, [facility] [address] [id number] [address] [place] [address], [place] [address] Nov, [facility] [address] [id number] [address] [place] [address], [place] [address] Nov, [facility] [address] [id number] [address] [place] [address], [place] [address] Oct, [facility] [address] [id number] [address] [place] [phone] Sep, [facility] [address] [id number] [address] [place] [address], [place] [address] Sep, [facility] [address] [id number] [address] [place] [address], [place] [address] Sep, [facility] [address] [id number] [address] [place] [phone] Sep, [facility] [address] [id number] [address] [place] [address], [place] [address] Jul, [facility] [address] [id number] [address] [place] [address], [place] [address] Jul, [facility] [address] [id number] [address] [place] [address], [place] [address] Jul, [facility] [address] [id number] [address] [place] [address], [place] [address] Jul, [facility] [address] [id number] [address] [place] [address], [place] [address] Jun, [facility] [address] [id number] [address] [place] [address], [place] [address] Jun, [facility] [address] [id number] [address] [place] [address], [place] [address] Jun, [facility] [address] [id number] [address] [place] [address], [place] [address] Jun, [facility] [address] [id number] [address] [place] [address], [place] [address] Apr, [facility] [address] [id number] [address] [place] [address], [place] [address] Apr, [facility] [address] [id number] [address] [place] [address], [place] [address] Apr, [facility] [address] [id number] [address] [place] [address], [place] [address] Apr, [facility] [address] [id number] [address] [place] [address], [place] [address] Dec, [facility] [address] [id number] [address] [place] [address], [place] [address] Dec, [facility] [address] [id number] [address] [place] [address], [place] [address] Dec, [facility] [address] [id number] [address] [place] [address], [place] [address] Dec, [facility] [address] [id number] [address] [place] [address], [place] [address] Dec, [facility] [address] [id number] [address] [place] [address], [place] [address] Dec, [facility] [address] [id number] [address] [place] [address], [place] [address] Nov, [facility] [address] [id number] [address] [place] [address], [place] [address] Nov, [facility] [address] [id number] [address] [place] [address], [place] [address] Sep, [facility] [address] [id number] [address] [place] [address], [place] [address] Sep, [facility] [address] [id number] [address] [place] [address], [place] [address] Sep, [facility] [address] [id number] [address] [place] [address], [place] [address] Sep, [facility] [address] [id number] [address] [place] [address], [place] [address] Sep, [facility] [address] [id number] [address] [place] [address], [place] [address] Aug, [facility] [address] [id number] [address] [place] [address], [place] [address] Aug, [facility] [address] [id number] [address] [place] [address] Aug, [facility] [address] [id number] [address] [place] [address], [place] [address] Aug, [facility] [address] [id number] [address] [place] [address], [place] [address] Jul, [facility] [address] [id number] [address] [place] [address] Jun, [facility] [address] [id number] [address] [place] [address] May, [facility] [address] [id number] [address] [place] [address], [place] [address] May, [facility] [address] [id number] [address] [place] [address], [place] [address] May, [facility] [address] [id number] [address] [place] [address], [place] [address] Apr, [facility] [address] [id number] [address] [place] [address], [place] [address] Apr, [facility] [address] [id number] [address] [place] [address], [place] [address] March, [facility] [address] [id number] [address] [place] [address], [place] [address] March, [facility] [address] [id number] [address] [place] [address], [place] [address] Feb, [facility] [address] [id number] [address] [place] [address], [place] [address] Feb, [facility] [address] [id number] [address] [place] [address], [place] [address] Feb, [facility] [address] [id number] [address] [place] [address], [place] [address] Jan, [facility] [address] [id number] [address] [place] [address], [place] [address] Jan, [facility] [address] [id number] [address] [place] [address], [place] [address] Jan, [facility] [address] [id number] [address] [place] [address], [place] [address] Dec, [facility] [address] [id number] [address] [place] [address], [place] [address] Dec, [facility] [address] [id number] [address] [place] [address], [place] [address] Dec, [facility] [address] [id number] [address] [place] [address], [place] [address] Nov, [facility] [address] [id number] [address] [place] [address], [place] [address] Nov, [facility] [address] [id number] [address] [place] [address], [place] [address] Nov, [facility] [address] [id number] [address] [place] [address], [place] [address] Nov, [facility] [address] [id number] [address] [place] [address], [place] [address] Nov, [facility] [address] [id number] [address] [place] [address], [place] [address] Nov, [facility] [address] [id number] [address] [place] [address], [place] [address] Oct, [facility] [address] [id number] [address] [place] [address], [place] [address] Oct, [facility] [address] [id number] [address] [place] [address], [place] [address] Oct, [facility] [address] [id number] [address] [place] [address], [place] [address] Oct, [facility] [address] [id number] [address] [place] [address], [place] [address] Sep, [facility] [address] [id number] [address] [place] [address], [place] [address] Sep, [facility] [address] [id number] [address] [place] [address], [place] [address] Sep, [facility] [address] [id number] [address] [place] [address], [place] [address] Sep, [facility] [address] [id number] [address] [place] [address], [place] [address] Aug, [facility] [address] [id number] [address] [place] [address], [place] [address] Jul, [facility] [address] [id number] [address] [place] [address], [place] [address] Jul, [facility] [address] [id number] [address] [place] [address], [place] [address] Jul, [facility] [address] [id number] [address] [place] [address], [place] [address] Jun, [facility] [address] [id number] [address] [place] [address], [place] [address] Jun, [facility] [address] [id number] [address] [place] [address], [place] [address] Jun, [facility] [address] [id number] [address] [place] [address], [place] [address] May, [facility] [address] [id number] [address] [place] [address], [place] [address] May, [facility] [address] [id number] [address] [place] [address], [place] [address] Apr, [facility] [address] [id number] [address] [place] [address], [place] [address] Apr, [facility] [address] [id number] [address] [place] [address], [place] [address] Apr, [facility] [address] [id number] [address] [place] [address], [place] [address] Apr, [facility] [address] [id number] [address] [place] [address], [place] [address] March, [facility] [address] [id number] [address] [place] [address], [place] [address] March, [facility] [address] [id number] [address] [place] [address], [place] [address] March, [facility] [address] [id number] [address] [place] [address], [place] [address] Jan, [facility] [address] [id number] [address] [place] [id number] Jan, [facility] [address] [id number] [address] [place] [id number] Jan, [facility] [address] [id number] [address] [place] [id number] Nov, [facility] [address] [id number] [address] [place] [id number] Nov, [facility] [address] [id number] [address] [place] [id number] Nov, [facility] [address] [id number] [address] [place] [id number] Nov, [facility] [address] [id number] [address] [place] [id number] Oct, [facility] [address] [id number] [address] [place] [id number] Oct, [facility] [address] [id number] [address] [place] [id number] Oct, [facility] [address] [id number] [address] [place] [id number] Oct, [facility] [address] [id number] [address] [place] [id number] Oct, [facility] [address] [id number] [address] [place] [id number] Oct, [facility] [address] [id number] [address] [place] [id number] Oct, IMMUNIZATIONS No Known Immunizations SOCIAL HISTORY [...]
--- OUTSIDE RECORDS SUMMARY | 2020-04-18 19:36 | XMS REPORT ---
Author Author Carroll CUNHA Organization [facility] Address [address] [place] [address] Care Team Providers Care Mica Patcher Name Role Phone JS CUNHA Unavailable PROBLEMS Type Condition ICD9-CM Code RMD75-SI Code Onset Dates Condition S tatus SNOMED Code Problem Arthritis M19.90 Active 1241842 Problem Essential hypertension I10 Active 82421702 Problem Chronic kidney disease, stage IV (severe) N18.4 Active 273393701 Problem Amputated left leg Z89.612 Active 1 [id number] Problem Gastroesophageal reflux disease, esophagitis pre sence not specified K21.9 Active 288366819 Problem Phantom limb pain G54.6 Active 57 89289661124 Problem Coronary disease I25.10 Active 537 47265 Problem nursing home current use of insulin Z79.4 Active 972141002 Problem Secondary hyperparathyroidism of renal origin N25. 81 Active 80324513 Problem Type 2 diabetes mellitus with diabetic nephropathy E11.21 Active 058262363 Problem Anxiety F41.9 Active 04348335 ALLERGIES No Information ENCOUNTERS Encounter Location Date Diagnosis [place] [address] [address] [facility] [id number] [address] [place] [address] May, [facility] [address] [facility] [id number] [address] [place] [address] Apr, Phantom limb pain G54.6 [facility] [address] [facility] [id number] [address] [place] [address] Apr, [place] [address] [facility] [id number] [address] [place] [address] Apr, [place] [address] [address] [facility] [id number] [address] [place] [address] Apr, Nail hypertrophy L60.2 and S elf-care deficit for grooming and hygiene Z74.1 [facility] [address] [facility] [id number] [address] [place] [address] 16 Mar, 2019 Type 2 diabetes mellitus wit h diabetic nephropathy E11.21 ; Chronic kidney disease, stage IV (severe) N18.4 ; Anxiety F41.9 and Amputated left leg Z89.612 [facility] [address] [id number] [address] [place] [address] 14 Mar, 2019 Anxiety F41.9 and Transient weakness of right lower extremity R29.898 [place] [address] [id number] [address] [place] [address] 14 Mar, 2019 [place] [address] [facility] [id number] [address] [place] [address] March, [place] [address] [facility] [id number] [address] [place] [address] Feb, [place] [address] [facility] [id number] [address] [place] [address] Aug, Anxiety F41.9 [place] [address] [address] [facility] [id number] [address] [place] [address] Aug, Medicare annual wellness vis it, initial Z00.00 ; Encounter for immunization Z23 ; Coronary disease I25.10 ; Type 2 diabetes mellitus with diabetic nephropathy E11.21 ; Chronic kidney disease, stage IV (severe) N18.4 ; Secondary hyperparathyroidism of renal origin N25.81 ; Anxiety F41.9 and Gastroesophageal reflux disease, esophagitis presence not specified K21.9 [place] [address] [address] [facility] [id number] [address] [place] [address] 26 Jul, 2018 Friction blister of right lo wer extremity, initial encounter S80.821A [place] [address] [address] [facility] [id number] [address] [place] [address] 06 Jul, 2018 Localized edema R60.0 ; Type 2 diabetes mellitus with diabetic nephropathy E11.21 ; Coronary disease I25.10 and Anxiety F41.9 [place] [address] [address] [facility] [id number] [address] [place] [address] Jun, [facility] [address] 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 [id number] [address] [place] [address] Nov, Type 2 diabetes mellitus wit hout complications E11.9 ; Coronary disease I25.10 and Essential hypertension I10 [facility] [address] [facility] [id number] [address] [place] [address] May, Diabetes E11.9 [facility] [address] [place] [id number] [address] [place] [address] Apr, Type 2 diabetes mellitus wit hout complications E11.9 and Arthritis M19.90 [facility] [address] [facility] [id number] [address] [place] [address] March, Diabetes E11.9 [facility] [address] [facility] [id number] [address] [place] [address] March, Diabetes E11.9 [facility] [address] [facility] [id number] [address] [place] [address] March, [facility] [address] [facility] [id number] [address] [place] [address] Feb, Diabetes E11.9 [facility] [address] [facility] [id number] [address] [place] [address] Feb, Diabetes E11.9 [facility] [address] [facility] [id number] [address] [place] [address] Jan, [facility] [address] [place] [id number] [address] [place] [address] Jan, Diabetes E11.9 [facility] [address] [id number] [address] [place] [address] Jan, Type 2 diabetes mellitus wit hout complications E11.9 [facility] [address] [id number] [address] [place] [address] Oct, [facility] [address] [id number] [address] [place] [address] Oct, Gastroesophageal reflux dise ase, esophagitis presence not specified K21.9 [facility] [address] [id number] [address] [place] [address] Sep, [facility] [address] [id number] [address] [place] [address] Sep, [facility] [address] [id number] [address] [place] [address] Sep, [facility] [address] [id number] [address] [place] [address] Aug, [facility] [address] [id number] [address] [place] [address] Aug, Diabetes E11.9 and Encounter for immunization Z23 [facility] [address] [id number] [address] [place] [address] Aug, [facility] [address] [id number] [address] [place] [address] Jul, [facility] [address] [id number] [address] [place] [address] Jun, [facility] [address] [id number] [address] [place] [address] May, Diabetes E11.9 [facility] [address] [id number] [address] [place] [address] Apr, [facility] [address] [id number] [address] [place] [address] Apr, [facility] [address] [id number] [address] [place] [address] March, [facility] [address] [id number] [address] [place] [address] March, [facility] [address] [id number] [address] [place] [address] Feb, [facility] [address] [id number] [address] [place] [address] Feb, [facility] [address] [id number] [address] [place] [address] Feb, [facility] [address] [id number] [address] [place] [address] Feb, [facility] [address] [id number] [address] [place] [address] Feb, [facility] [address] [id number] [address] [place] [address] Feb, Type 2 diabetes mellitus wit hout complications E11.9 [facility] [address] [id number] [address] [place] [address] Feb, [facility] [address] [id number] [address] [place] [address] Jan, [facility] [address] [id number] [address] [place] [address] Dec, Eustachian tube dysfunction H69.80 and Diabetes E11.9 [facility] [address] [id number] [address] [place] [address] Dec, [facility] [address] [id number] [address] [place] [address] Dec, [facility] [address] [id number] [address] [place] [address] Dec, Type 2 diabetes mellitus wit hout complications E11.9 ; Atherosclerotic heart disease of [place] coronary artery without angina pectoris I25.10 and Diabetes E11.9 [facility] [address] [id number] [address] [place] [address] Dec, [facility] [address] [facility] [id number] [address] [place] [address] Dec, CHF (congestive heart failur e) I50.9 [facility] [address] [facility] [id number] [address] [place] [address] Nov, Diabetes E11.9 and Coronary disease I25.10 [facility] [address] [id number] [address] [place] [address] Oct, [facility] [address] [facility] [id number] [address] [place] [address] Aug, [facility] [address] [facility] [id number] [address] [place] [address] Jul, [facility] [address] [place] [id number] [place] [address] Jul, DM w/o complication type II 250.00 and Spontaneous bleeding of digits 459.0 [facility] [address] [facility] [id number] [address] [place] [address] Apr, [facility] [address] [facility] [id number] [address] [place] [address] Apr, [facility] [address] [facility] [id number] [address] [place] [address] March, CHF (congestive heart failur e) 428.0 and Coronary atherosclerosis of unspecified type of vessel, [place] or graft 414.00 [facility] [address] [facility] [id number] [address] [place] [address] March, [facility] [address] [facility] [id number] [address] [place] [address] Feb, [facility] [address] [facility] [id number] [address] [place] [address] Feb, [facility] [address] [place] [id number] [address] [place] [address] Jan, [facility] [address] [id number] [address] [place] [address], [place] [address] Jan, [facility] [address] [id number] [address] [place] [address], [place] [address] Dec, [address] [facility] [address] [id number] [address] [place] [address], [place] [address] Dec, [facility] [address] [id number] [address] [place] [address], [place] [address] Dec, [address] [facility] [address] [id number] [address] [place] [address], [place] [address] Dec, [address] [facility] [address] [id number] [address] [place] [address], [place] [address] Dec, [facility] [address] [id number] [address] [place] [address], [place] [address] Dec, [facility] [address] [id number] [address] [place] [address], [place] [address] Nov, [facility] [address] [id number] [address] [place] [address], [place] [address] Nov, [facility] [address] [id number] [address] [place] [address], [place] [address] Oct, [facility] [address] [id number] [address] [place] [address], [place] [address] Sep, [facility] [address] [id number] [address] [place] [address], [place] [address] Sep, [facility] [address] [id number] [address] [place] [address], [place] [address] Sep, [facility] [address] [id number] [address] [place] [address], [place] [address] Sep, [facility] [address] [id number] [address] [place] [address], [place] [address] Jul, [facility] [address] [id number] [address] [place] [address], [place] [address] 18 Jul, 2014 [facility] [address] [id number] [address] [place] [address], [place] [address] Jul, [facility] [address] [id number] [address] [place] [address], [place] [address] Jul, [facility] [address] [id number] [address] [place] [address], [place] [address] Jun, [facility] [address] [id number] [address] [place] [address], [place] [address] Jun, [facility] [address] [id number] [address] [place] [address], [place] [address] Jun, [facility] [address] [id number] [address] [place] [address], [place] [address] Jun, [facility] [address] [id number] [address] [place] [address], [place] [address] Apr, [facility] [address] [id number] [address] [place] [address], [place] [address] Apr, [facility] [address] [id number] [address] [place] [address], [place] [address] Apr, [facility] [address] [id number] [address] [place] [address], [place] [address] Apr, [facility] [address] [id number] [address] [place] [address], [place] [address] Dec, [facility] [address] [id number] [address] [place] [address], [place] [address] Dec, [facility] [address] [id number] [address] [place] [address], [place] [address] Dec, [facility] [address] [id number] [address] [place] [address], [place] [address] Dec, [facility] [address] [id number] [address] [place] [address], [place] [address] Dec, [facility] [address] [id number] [address] [place] [address], [place] [address] Dec, [facility] [address] [id number] [address] [place] [address], [place] [address] Nov, [facility] [address] [id number] [address] [place] [address], [place] [address] Nov, [facility] [address] [id number] [address] [place] [address], [place] [address] Sep, [facility] [address] [id number] [address] [place] [address], [place] [address] Sep, [facility] [address] [id number] [address] [place] [address], [place] [address] Sep, [facility] [address] [id number] [address] [place] [address], [place] [address] Sep, [facility] [address] [id number] [address] [place] [address], [place] [address] Sep, [facility] [address] [id number] [address] [place] [address], [place] [address] Aug, [facility] [address] [id number] [address] [place] [address], [place] [address] Aug, [facility] [address] [id number] [address] [place] [address], [place] [address] Aug, [facility] [address] [id number] [address] [place] [address], [place] [address] Aug, [facility] [address] [id number] [address] [place] [address], [place] [address] Jul, [facility] [address] [id number] [address] [place] [address], [place] [address] Jun, [facility] [address] [id number] [address] [place] [address], [place] [address] May, [facility] [address] [id number] [address] [place] [address], [place] [address] May, [facility] [address] [id number] [address] [place] [address], [place] [address] May, [facility] [address] [id number] [address] [place] [address], [place] [address] Apr, [facility] [address] [id number] [address] [place] [address], [place] [address] Apr, [facility] [address] [id number] [address] [place] [address], [place] [address] March, [facility] [address] [id number] [address] [place] [address], [place] [address] March, [facility] [address] [id number] [address] [place] [address], [place] [address] Feb, [facility] [address] [id number] [address] [place] [address], [place] [address] 15 Feb, 2013 [facility] [address] [id number] [address] [place] [address], [place] [address] Feb, [facility] [address] [id number] [address] [place] [address], [place] [address] Jan, [facility] [address] [id number] [address] [place] [address], [place] [address] Jan, [facility] [address] [id number] [address] [place] [address], [place] [address] Jan, [facility] [address] [id number] [address] [place] [address], [place] [address] Dec, [facility] [address] [id number] [address] [place] [address], [place] [address] Dec, [facility] [address] [id number] [address] [place] [address], [place] [address] Dec, [facility] [address] [id number] [address] [place] [address], [place] [address] Nov, [facility] [address] [id number] [address] [place] [address], [place] [address] Nov, [facility] [address] [id number] [address] [place] [address], [place] [address] Nov, [facility] [address] [id number] [address] [place] [address], [place] [address] Nov, [facility] [address] [id number] [address] [place] [address], [place] [address] Nov, [facility] [address] [id number] [address] [place] [address], [place] [address] Nov, [facility] [address] [id number] [address] [place] [address], [place] [address] Oct, [facility] [address] [id number] [address] [place] [address], [place] [address] Oct, [facility] [address] [id number] [address] [place] [address], [place] [address] Oct, [facility] [address] [id number] [address] [place] [address], [place] [address] Oct, [facility] [address] [id number] [address] [place] [address], [place] [address] Sep, [facility] [address] [id number] [address] [place] [address], [place] [address] Sep, [facility] [address] [id number] [address] [place] [address], [place] [address] Sep, [facility] [address] [id number] [address] [place] [address], [place] [address] Sep, [facility] [address] [id number] [address] [place] [address], [place] [address] Aug, [facility] [address] [id number] [address] [place] [address], [place] [address] 24 Jul, 2012 [facility] [address] [id number] [address] [place] [address], [place] [address] Jul, [facility] [address] [id number] [address] [place] [address], [place] [address] Jul, [facility] [address] [id number] [address] [place] [address], [place] [address] Jun, [facility] [address] [id number] [address] [place] [address], [place] [address] Jun, [facility] [address] [id number] [address] [place] [address], [place] [address] Jun, [facility] [address] [id number] [address] [place] [address], [place] [address] May, [facility] [address] [id number] [address] [place] [address], [place] [address] May, [facility] [address] [id number] [address] [place] [address], [place] [address] Apr, [facility] [address] [id number] [address] [place] [address], [place] [address] Apr, [facility] [address] [id number] [address] [place] [address], [place] [address] Apr, [facility] [address] [id number] [address] [place] [address], [place] [address] Apr, [facility] [address] [id number] [address] [place] [address], [place] [address] March, [facility] [address] [id number] [address] [place] [address], [place] [address] March, [facility] [address] [id number] [address] [place] [address], [place] [address] March, [facility] [address] [id number] [address] [place] [address], [place] [address] Jan, [facility] [address] [id number] [address] [place] [address], [place] [address] Jan, [facility] [address] [id number] [address] [place] [address] 13 Jan, 2012 [facility] [address] [id number] [address] [place] [address] Nov, [facility] [address] [id number] [address] [place] [address] Nov, [facility] [address] [id number] [address] [place] [address] Nov, [facility] [address] [id number] [address] [place] [address] Nov, [facility] [address] [id number] [address] [place] [address] Oct, [facility] [address] [id number] [address] [place] [address] Oct, [facility] [address] [id number] [address] [place] [address] Oct, [facility] [address] [id number] [address] [place] [id number] Oct, [facility] [address] [id number] [place] [id number] Oct, [facility] [address] [id number] [address] [place] [id number] Oct, [facility] [address] [id number] [address] [place] [id number] Oct, IMMUNIZATIONS No Known Immunizations SOCIAL HISTORY [...]
--- OUTSIDE RECORDS SUMMARY | 2020-04-18 19:36 | XMS REPORT ---
Author Author Carroll CUNHA Organization [facility] Address [address] [place] [address] Care Team Providers Care Roll Setter Name Role Phone JS CUNHA Unavailable PROBLEMS Type Condition ICD9-CM Code [id number] Code Onset Dates Condition S tatus SNOMED Code Problem Arthritis M19.90 Active 5812640 Problem Essential hypertension I10 Active 58773318 Problem Chronic kidney disease, stage IV (severe) N18.4 Active 494296579 Problem Amputated left leg Z89.612 Active 1 11359047993089 Problem Gastroesophageal reflux disease, esophagitis pre sence not specified K21.9 Active 673031440 Problem Phantom limb pain G54.6 Active 57 79016439331 Problem Coronary disease I25.10 Active 537 24500 Problem prison current use of insulin Z79.4 Active 979922758 Problem Secondary hyperparathyroidism of renal origin N25. 81 Active 26937021 Problem Type 2 diabetes mellitus with diabetic nephropathy E11.21 Active 698566188 Problem Anxiety F41.9 Active [id number] ALLERGIES No Information ENCOUNTERS Encounter Location Date Diagnosis [place] [id number] [facility] [id number] [address] [place] [address] May, Phantom limb pain G54.6 and Amputated left leg Z89.612 [facility] [address] [facility] [id number] [address] [place] [address] Apr, Phantom limb pain G54.6 [facility] [address] [facility] [id number] [address] [place] [address] Apr, [facility] [address] [facility] [id number] [address] [place] [address] Apr, [facility] [address] [facility] [id number] [address] [place] [address] Apr, Nail hypertrophy L60.2 and S [facility] deficit for grooming and hygiene Z74.1 [facility] [address] [place] [id number] [address] [place] [address] March, Type 2 diabetes mellitus wit h diabetic nephropathy E11.21 ; Chronic kidney disease, stage IV (severe) N18.4 ; Anxiety F41.9 and Amputated left leg Z89.612 [facility] [address] [place] [id number] [place] [address] March, Anxiety F41.9 and Transient weakness of right lower extremity R29.898 [place] [address] [place] [id number] [address] [place] [address] March, [place] [address] [place] [id number] [place] [address] March, [place] [address] [address] Feb, [facility] [address] [place] [id number] [address] [place] [address] Aug, Anxiety F41.9 [place] [address] [address] Aug, Medicare annual wellness vis it, initial Z00.00 ; Encounter for immunization Z23 ; Coronary disease I25.10 ; Type 2 diabetes mellitus with diabetic nephropathy E11.21 ; Chronic kidney disease, stage IV (severe) N18.4 ; Secondary hyperparathyroidism of renal origin N25.81 ; Anxiety F41.9 and Gastroesophageal reflux disease, esophagitis presence not specified K21.9 [facility] [address] [place] [id number] [address] [place] [address] 26 Jul, 2018 Friction blister of right lo wer extremity, initial encounter S80.821A [place] [address] [place] [id number] [address] [place] [id number] 06 Jul, 2018 Localized edema R60.0 ; Type 2 diabetes mellitus with diabetic nephropathy E11.21 ; Coronary disease I25.10 and Anxiety F41.9 [place] [address] [facility] [id number] [address] [place] [address] Jun, [facility] [address] [facility] [id number] [address] [place] [address] March, Type 2 diabetes mellitus wit h diabetic nephropathy E11.21 ; prison current use of insulin Z79.4 ; Chronic kidney disease, stage IV (severe) N18.4 ; Secondary hyperparathyroidism of renal origin N25.81 ; Coronary disease I25.10 and Gastroesophageal reflux disease, esophagitis presence not specified K21.9 [facility] [address] [facility] [id number] [address] [place] [address] Nov, Type 2 diabetes mellitus wit hout complications E11.9 ; Coronary disease I25.10 and Essential hypertension I10 [facility] [address] [facility] [id number] [address] [place] [address] May, Diabetes E11.9 [facility] [address] [facility] [id number] [address] [place] [address] Apr, Type 2 diabetes mellitus wit hout complications E11.9 and Arthritis M19.90 [facility] [address] [facility] [id number] [address] [place] [address] March, Diabetes E11.9 [facility] [address] [facility] [id number] [address] [place] [address] March, Diabetes E11.9 [facility] [address] [facility] [id number] [address] [place] [address] March, [facility] [address] [facility] [id number] [address] [place] [address] Feb, Diabetes E11.9 [facility] [address] [facility] [id number] [address] [place] [address] Feb, Diabetes E11.9 [facility] [address] [facility] [id number] [address] [place] [address] Jan, [facility] [address] [facility] [id number] [address] [place] [address] Jan, Diabetes E11.9 [facility] [address] [id number] [address] [place] [address] Jan, Type 2 diabetes mellitus wit hout complications E11.9 [facility] [address] [id number] [address] [place] [address] Oct, [facility] [address] [id number] [address] [place] [address] Oct, Gastroesophageal reflux dise ase, esophagitis presence not specified K21.9 [facility] [address] [id number] [address] [place] [address] Sep, [facility] [address] [id number] [address] [place] [address] Sep, [facility] [address] [id number] [address] [place] [address] Sep, [facility] [address] [id number] [address] [place] [address] Aug, [facility] [address] [id number] [address] [place] [address] Aug, Diabetes E11.9 and Encounter for immunization Z23 [facility] [address] [id number] [address] [place] [address] Aug, [facility] [address] [id number] [address] [place] [address] Jul, [facility] [address] [id number] [address] [place] [address] Jun, [facility] [address] [id number] [address] [place] [address] May, Diabetes E11.9 [facility] [address] [id number] [address] [place] [address] Apr, [facility] [address] [id number] [address] [place] [address] Apr, [facility] [address] [id number] [address] [place] [address] March, [facility] [address] [id number] [address] [place] [address] March, [facility] [address] [id number] [address] [place] [address] Feb, [facility] [address] [id number] [address] [place] [address] Feb, [facility] [address] [id number] [address] [place] [address] Feb, [facility] [address] [id number] [address] [place] [address] Feb, [facility] [address] [id number] [address] [place] [address] Feb, [facility] [address] [id number] [address] [place] [address] Feb, Type 2 diabetes mellitus wit hout complications E11.9 [facility] [address] [id number] [address] [place] [address] Feb, [facility] [address] [id number] [address] [place] [address] Jan, [facility] [address] [id number] [address] [place] [address] Dec, Eustachian tube dysfunction H69.80 and Diabetes E11.9 [facility] [address] [id number] [address] [place] [address] Dec, [facility] [address] [id number] [address] [place] [address] Dec, [facility] [address] [id number] [address] [place] [address] Dec, Type 2 diabetes mellitus wit hout complications E11.9 ; 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 and Diabetes E11.9 [facility] [address] [facility] [id number] [address] [place] [address] Dec, [facility] [address] [facility] [id number] [address] [place] [address] Dec, CHF (congestive heart failur e) I50.9 [facility] [address] [facility] [id number] [address] [place] [address] Nov, Diabetes E11.9 and Coronary disease I25.10 [facility] [address] [id number] [address] [place] [address] Oct, [facility] [address] [facility] [id number] [address] [place] [address] Aug, [facility] [address] [place] [id number] [address] [place] [address] Jul, [facility] [address] [place] [id number] [place] [address] Jul, DM w/o complication type II 250.00 and Spontaneous bleeding of digits 459.0 [facility] [address] [place] [id number] [place] [id number] Apr, [facility] [address] [place] [id number] [address] [place] [address] Apr, [facility] [address] [place] [id number] [address] [place] [phone] March, CHF (congestive heart failur e) 428.0 and Coronary atherosclerosis of unspecified type of vessel, holy cross or graft 414.00 [facility] [address] [facility] [id number] [address] [place] [address] March, [facility] [address] [place] [id number] [address] [place] [phone] Feb, [facility] [address] [place] [id number] [address] [place] [phone] Feb, [facility] [address] [id number] [address] [place] [address], [place] [address] Jan, [facility] [address] [id number] [address] [place] [address], [place] [id number] Jan, [facility] [address] [id number] [address] [place] [address], [place] [address] Dec, 2014 [facility] [address] [id number] [address] [place] [address], [place] [address] Dec, 2014 [facility] [address] [id number] [address] [place] [address], [place] [address] Dec, [facility] [address] [id number] [address] [place] [address], [place] [address] Dec, 2014 [facility] [address] [id number] [address] [place] [address], [place] [address] Dec, [facility] [address] [id number] [address] [place] [address], [place] [address] Dec, [facility] [address] [id number] [address] [place] [address], [place] [address] Nov, [facility] [address] [id number] [address] [place] [address], [place] [address] Nov, [facility] [address] [id number] [address] [place] [address], [place] [address] Oct, [facility] [address] [id number] [address] [place] [id number] Sep, [facility] [address] [id number] [address] [place] [address], [place] [address] Sep, [facility] [address] [id number] [address] [place] [address], [place] [address] Sep, [facility] [address] [id number] [address] [place] [id number] Sep, [facility] [address] [id number] [address] [place] [address], [place] [address] Jul, [facility] [address] [id number] [address] [place] [address], [place] [address] Jul, [facility] [address] [id number] [address] [place] [address], [place] [address] Jul, [facility] [address] [id number] [address] [place] [address], [place] [address] Jul, [facility] [address] [id number] [address] [place] [address], [place] [address] Jun, [facility] [address] [id number] [address] [place] [address], [place] [address] Jun, [facility] [address] [id number] [address] [place] [address], [place] [address] Jun, [facility] [address] [id number] [address] [place] [address], [place] [address] Jun, [facility] [address] [id number] [address] [place] [address], [place] [address] Apr, [facility] [address] [id number] [address] [place] [address], [place] [address] Apr, [facility] [address] [id number] [address] [place] [address], [place] [address] Apr, [facility] [address] [id number] [address] [place] [address], [place] [address] Apr, [facility] [address] [id number] [address] [place] [address], [place] [address] Dec, [facility] [address] [id number] [address] [place] [address], [place] [address] Dec, [facility] [address] [id number] [address] [place] [address], [place] [address] Dec, [facility] [address] [id number] [address] [place] [address], [place] [address] Dec, [facility] [address] [id number] [address] [place] [address], [place] [address] Dec, [facility] [address] [id number] [address] [place] [address], [place] [address] Dec, [facility] [address] [id number] [address] [place] [address], [place] [address] Nov, [facility] [address] [id number] [address] [place] [address], [place] [address] Nov, [facility] [address] [id number] [address] [place] [address], [place] [address] Sep, [facility] [address] [id number] [address] [place] [address], [place] [address] Sep, [facility] [address] [id number] [address] [place] [address], [place] [address] Sep, [facility] [address] [id number] [address] [place] [address], [place] [address] Sep, [facility] [address] [id number] [address] [place] [address], [place] [address] Sep, [facility] [address] [id number] [address] [place] [address], [place] [address] Aug, [facility] [address] [id number] [address] [place] [address], [place] [address] Aug, [facility] [address] [id number] [address] [place] [address] Aug, [facility] [address] [id number] [address] [place] [address], [place] [address] Aug, [facility] [address] [id number] [address] [place] [address], [place] [address] Jul, [facility] [address] [id number] [address] [place] [address] Jun, [facility] [address] [id number] [address] [place] [address] May, [facility] [address] [id number] [address] [place] [address], [place] [address] May, [facility] [address] [id number] [address] [place] [address], [place] [address] May, [facility] [address] [id number] [address] [place] [address], [place] [address] Apr, [facility] [address] [id number] [address] [place] [address], [place] [address] Apr, [facility] [address] [id number] [address] [place] [address], [place] [address] March, [facility] [address] [id number] [address] [place] [address], [place] [address] March, [facility] [address] [id number] [address] [place] [address], [place] [address] Feb, [facility] [address] [id number] [address] [place] [address], [place] [address] Feb, [facility] [address] [id number] [address] [place] [address], [place] [address] Feb, [facility] [address] [id number] [address] [place] [address], [place] [address] Jan, [facility] [address] [id number] [address] [place] [address], [place] [address] Jan, [facility] [address] [id number] [address] [place] [address], [place] [address] Jan, [facility] [address] [id number] [address] [place] [address], [place] [address] Dec, [facility] [address] [id number] [address] [place] [address], [place] [address] Dec, [facility] [address] [id number] [address] [place] [address], [place] [address] Dec, [facility] [address] [id number] [address] [place] [address], [place] [address] Nov, [facility] [address] [id number] [address] [place] [address], [place] [address] Nov, [facility] [address] [id number] [address] [place] [address], [place] [address] Nov, [facility] [address] [id number] [address] [place] [address], [place] [address] Nov, [facility] [address] [id number] [address] [place] [address], [place] [address] Nov, [facility] [address] [id number] [address] [place] [address], [place] [address] Nov, [facility] [address] [id number] [address] [place] [address], [place] [address] Oct, [facility] [address] [id number] [address] [place] [address], [place] [address] Oct, [facility] [address] [id number] [address] [place] [address], [place] [address] Oct, [facility] [address] [id number] [address] [place] [address], [place] [address] Oct, [facility] [address] [id number] [address] [place] [address], [place] [address] Sep, [facility] [address] [id number] [address] [place] [address], [place] [address] Sep, [facility] [address] [id number] [address] [place] [address], [place] [address] Sep, [facility] [address] [id number] [address] [place] [address], [place] [address] Sep, [facility] [address] [id number] [address] [place] [address], [place] [address] Aug, [facility] [address] [id number] [address] [place] [address], [place] [address] Jul, [facility] [address] [id number] [address] [place] [address], [place] [address] Jul, [facility] [address] [id number] [address] [place] [address], [place] [id number] Jul, [facility] [address] [id number] [address] [place] [address], [place] [id number] Jun, [facility] [address] [id number] [address] [place] [address], [place] [address] Jun, [facility] [address] [id number] [address] [place] [address], [place] [id number] Jun, [facility] [address] [id number] [address] [place] [address], [place] [id number] May, [facility] [address] [id number] [address] [place] [address], [place] [address] May, [facility] [address] [id number] [address] [place] [address], [place] [address] Apr, [facility] [address] [id number] [address] [place] [address], [place] [id number] Apr, [facility] [address] [id number] [address] [place] [address], [place] [id number] Apr, [facility] [address] [id number] [address] [place] [address], [place] [id number] Apr, [facility] [address] [id number] [address] [place] [address], [place] [address] March, [facility] [address] [id number] [address] [place] [address], [place] [id number] March, [facility] [address] [id number] [address] [place] [address], [place] [id number] March, [facility] [address] [id number] [address] [place] [address], [place] [id number] Jan, [facility] [address] [id number] [address] [place] [id number] Jan, [facility] [address] [id number] [address] [place] [id number] Jan, [facility] [address] [id number] [address] [place] [id number] Nov, [facility] [address] [id number] [address] [place] [id number] Nov, [facility] [address] [id number] [address] [place] [id number] Nov, [facility] [address] [id number] [address] [place] [id number] Nov, [facility] [address] [id number] [address] [place] [id number] Oct, [facility] [address] [id number] [address] [place] [id number] Oct, [facility] [address] [id number] [address] [place] [id number] Oct, [facility] [address] [id number] [address] [place] [id number] Oct, [facility] [address] [id number] [address] [place] [id number] Oct, [facility] [address] [id number] [address] [place] [id number] Oct, [facility] [address] [id number] [address] [place] [id number] Oct, IMMUNIZATIONS No Known Immunizations SOCIAL HISTORY [...]
--- OUTSIDE RECORDS SUMMARY | 2020-04-18 19:37 | XMS REPORT ---
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 81 Active 12184510 ALLERGIES No Information ENCOUNTERS Encounter Location Date Diagnosis [place] [id number] [place] [id number] [place] [phone] March, [place] [address] [phone] Feb, [place] [address] [place] [id number] [place] [address] Aug, Anxiety F41.9 [place] [address] [place] [id number] [place] [phone] Aug, Medicare annual wellness vis it, initial Z00.00 ; Encounter for immunization Z23 ; Coronary disease I25.10 ; Type 2 diabetes mellitus with diabetic nephropathy E11.21 ; Chronic kidney disease, stage IV (severe) N18.4 ; Secondary hyperparathyroidism of renal origin N25.81 ; Anxiety F41.9 and Gastroesophageal reflux disease, esophagitis presence not specified K21.9 [place] [address] [place] [id number] [place] [phone] Jul, Friction blister of right lo wer extremity, initial encounter S80.821A [facility] [address] [place] [id number] [address] [place] [address] Jul, Localized edema R60.0 ; Type 2 diabetes mellitus with diabetic nephropathy E11.21 ; Coronary disease I25.10 and Anxiety F41.9 [facility] [address] [address] Jun, [place] [address] [id number] March, Type 2 diabetes mellitus wit h diabetic nephropathy E11.21 ; [employer] current use of insulin Z79.4 ; Chronic kidney disease, stage IV (severe) N18.4 ; Secondary hyperparathyroidism of renal origin N25.81 ; Coronary disease I25.10 and Gastroesophageal reflux disease, esophagitis presence not specified K21.9 [place] [address] [id number] Nov, Type 2 diabetes mellitus wit hout complications E11.9 ; Coronary disease I25.10 and Essential hypertension I10 [place] [address] [address] May, Diabetes E11.9 [place] [address] [place] [id number] [place] [address] Apr, Type 2 diabetes mellitus wit hout complications E11.9 and Arthritis M19.90 [place] [address] [place] [id number] [address] [place] [phone] March, Diabetes E11.9 [place] [address] [place] [id number] [address] [place] [phone] March, Diabetes E11.9 [place] [address] [place] [id number] [address] [place] [phone] March, [place] [address] [place] [id number] [address] [place] [phone] Feb, Diabetes E11.9 [place] [address] [place] [id number] [place] [phone] Feb, Diabetes E11.9 [facility] [address] [id number] [address] [place] [phone] Jan, [facility] [address] [id number] [address] [place] [phone] Jan, Diabetes E11.9 [facility] [address] [id number] [address] [place] [phone] Jan, Type 2 diabetes mellitus wit hout complications E11.9 [facility] [address] [id number] [address] [place] [id number] Oct, [facility] [address] [id number] [address] [place] [phone] Oct, Gastroesophageal reflux dise ase, esophagitis presence not specified K21.9 [facility] [address] [id number] [address] [place] [id number] Sep, [facility] [address] [id number] [address] [place] [phone] Sep, [facility] [address] [id number] [address] [place] [phone] Sep, [facility] [address] [id number] [address] [place] [phone] Aug, [facility] [address] [id number] [address] [place] [address] Aug, Diabetes E11.9 and Encounter for immunization Z23 [facility] [address] [id number] [address] [place] [phone] Aug, [facility] [address] [id number] [address] [place] [phone] 08 Jul, 2016 [facility] [address] [id number] [address] [place] [phone] Jun, [facility] [address] [id number] [address] [place] [phone] May, Diabetes E11.9 [facility] [address] [id number] [address] [place] [address], [place] [id number] Apr, [facility] [address] [id number] [address] [place] [phone] Apr, [facility] [address] [id number] [address] [place] [id number] March, [facility] [address] [id number] [address] [place] [phone] March, [facility] [address] [id number] [address] [place] [phone] Feb, [facility] [address] [id number] [address] [place] [address] Feb, [facility] [address] [id number] [address] [place] [id number] Feb, [facility] [address] [id number] [address] [place] [phone] Feb, [facility] [address] [id number] [address] [place] [phone] Feb, [facility] [address] [id number] [address] [place] [phone] Feb, Type 2 diabetes mellitus wit hout complications E11.9 [facility] [address] [id number] [address] [place] [phone] Feb, [facility] [address] [id number] [address] [place] [phone] Jan, [facility] [address] [id number] [address] [place] [phone] Dec, Eustachian tube dysfunction H69.80 and Diabetes E11.9 [facility] [address] [id number] [address] [place] [phone] Dec, [facility] [address] [facility] [id number] [address] [place] [phone] Dec, [facility] [address] [place] [id number] [place] [address] Dec, Type 2 diabetes mellitus wit hout complications E11.9 ; Atherosclerotic heart disease of [place] coronary artery without angina pectoris I25.10 and Diabetes E11.9 [facility] [address] [place] [id number] [address] [place] [phone] Dec, [facility] [address] [place] [id number] [place] [address] Dec, CHF (congestive heart failur e) I50.9 [place] [address] [address] Nov, Diabetes E11.9 and Coronary disease I25.10 [place] [address] [address] Oct, [facility] [address] [address] Aug, [place] [address] [address] Jul, [facility] [address] [address] Jul, DM w/o complication type II 250.00 and Spontaneous bleeding of digits 459.0 [facility] [address] [place] [id number] [address] [place] [phone] Apr, [facility] [address] [place] [id number] [place] [address] Apr, [place] [address] [address] March, CHF (congestive heart failur e) 428.0 and Coronary atherosclerosis of unspecified type of vessel, [place] or graft 414.00 [place] [address] [phone] March, [facility] [address] [id number] [address] [place] [address], [place] [id number] 14 Feb, 2015 [facility] [address] [id number] [address] [place] [address], [place] [id number] Feb, [facility] [address] [id number] [address] [place] [address], [place] [id number] Jan, [facility] [address] [id number] [address] [place] [address], [place] [id number] Jan, [facility] [address] [id number] [address] [place] [address], [place] [id number] Dec, [facility] [address] [id number] [address] [place] [address], [place] [id number] Dec, [facility] [address] [id number] [address] [place] [address], [place] [id number] Dec, [facility] [address] [id number] [address] [place] [address], [place] [id number] 17 Dec, 2014 [facility] [address] [id number] [address] [place] [address], [place] [id number] 16 Dec, 2014 [facility] [address] [id number] [address] [place] [address], [place] [id number] 16 Dec, 2014 [facility] [address] [id number] [address] [place] [address], [place] [id number] Nov, [facility] [address] [id number] [address] [place] [address], [place] [id number] Nov, [facility] [address] [id number] [address] [place] [address], [place] [id number] Oct, [facility] [address] [id number] [address] [place] [address], [place] [id number] Sep, [facility] [address] [id number] [address] [place] [address], [place] [id number] Sep, [facility] [address] [id number] [address] [place] [address], [place] [id number] Sep, [facility] [address] [id number] [address] [place] [address], [place] [id number] Sep, [facility] [address] [id number] [address] [place] [address], [place] [id number] Jul, [facility] [address] [id number] [address] [place] [address], [place] [id number] Jul, [facility] [address] [id number] [address] [place] [address], [place] [id number] Jul, [facility] [address] [id number] [address] [place] [address], [place] [id number] Jul, [facility] [address] [id number] [address] [place] [address], [place] [id number] Jun, [facility] [address] [id number] [address] [place] [address], [place] [id number] Jun, [facility] [address] [id number] [address] [place] [address], [place] [id number] Jun, [facility] [address] [id number] [address] [place] [address], [place] [id number] Jun, [facility] [address] [id number] [address] [place] [address], [place] [id number] Apr, [facility] [address] [id number] [address] [place] [address], [place] [id number] Apr, [facility] [address] [id number] [address] [place] [address], [place] [id number] Apr, [facility] [address] [id number] [address] [place] [address], [place] [id number] Apr, [facility] [address] [id number] [address] [place] [address], [place] [id number] Dec, [facility] [address] [id number] [address] [place] [address], [place] [id number] Dec, [facility] [address] [id number] [address] [place] [address], [place] [id number] Dec, [facility] [address] [id number] [address] [place] [address], [place] [id number] Dec, [facility] [address] [id number] [address] [place] [address], [place] [id number] Dec, [facility] [address] [id number] [address] [place] [address], [place] [id number] Dec, [facility] [address] [id number] [address] [place] [address], [place] [id number] Nov, [facility] [address] [id number] [address] [place] [address], [place] [id number] Nov, [facility] [address] [id number] [address] [place] [address], [place] [id number] Sep, [facility] [address] [id number] [address] [place] [address], [place] [id number] Sep, [facility] [address] [id number] [address] [place] [address], [place] [id number] Sep, [facility] [address] [id number] [address] [place] [address], [place] [id number] Sep, [facility] [address] [id number] [address] [place] [address], [place] [id number] Sep, [facility] [address] [id number] [address] [place] [phone] Aug, [facility] [address] [id number] [address] [place] [address], [place] [id number] Aug, [facility] [address] [id number] [address] [place] [address], [place] [id number] Aug, [facility] [address] [id number] [address] [place] [phone] Aug, [facility] [address] [id number] [address] [place] [address], [place] [id number] Jul, [facility] [address] [id number] [address] [place] [address], [place] [id number] Jun, [facility] [address] [id number] [address] [place] [address], [place] [id number] May, [facility] [address] [id number] [address] [place] [address], [place] [id number] May, [facility] [address] [id number] [address] [place] [address], [place] [id number] May, [facility] [address] [id number] [address] [place] [address], [place] [id number] Apr, [facility] [address] [id number] [address] [place] [address], [place] [id number] Apr, [facility] [address] [id number] [address] [place] [address], [place] [id number] March, [facility] [address] [id number] [address] [place] [address], [place] [id number] March, [facility] [address] [id number] [address] [place] [address], [place] [id number] Feb, [facility] [address] [id number] [address] [place] [address], [place] [id number] 15 Feb, 2013 [facility] [address] [id number] [address] [place] [address], [place] [id number] 10 Feb, 2013 [facility] [address] [id number] [address] [place] [address], [place] [id number] 21 Jan, 2013 [facility] [address] [id number] [address] [place] [address], [place] [id number] 18 Jan, 2013 [facility] [address] [id number] [address] [place] [address], [place] [id number] 07 Jan, 2013 [facility] [address] [id number] [address] [place] [address], [place] [id number] Dec, [facility] [address] [id number] [address] [place] [address], [place] [id number] Dec, [facility] [address] [id number] [address] [place] [address], [place] [id number] Dec, [facility] [address] [id number] [address] [place] [address], [place] [id number] Nov, [facility] [address] [id number] [address] [place] [address], [place] [id number] Nov, [facility] [address] [id number] [address] [place] [address], [place] [id number] Nov, [facility] [address] [id number] [address] [place] [address], [place] [id number] Nov, [facility] [address] [id number] [address] [place] [address], [place] [id number] Nov, [facility] [address] [id number] [address] [place] [address], [place] [id number] Nov, [facility] [address] [id number] [address] [place] [address], [place] [id number] Oct, [facility] [address] [id number] [address] [place] [address], [place] [id number] Oct, [facility] [address] [id number] [address] [place] [address], [place] [id number] Oct, [facility] [address] [id number] [address] [place] [address], [place] [id number] Oct, [facility] [address] [id number] [address] [place] [address], [place] [id number] Sep, [facility] [address] [id number] [address] [place] [address], [place] [id number] Sep, [facility] [address] [id number] [address] [place] [address], [place] [id number] Sep, [facility] [address] [id number] [address] [place] [address], [place] [id number] Sep, [facility] [address] [id number] [address] [place] [address], [place] [id number] Aug, [facility] [address] [id number] [address] [place] [address], [place] [id number] Jul, [facility] [address] [id number] [address] [place] [address], [place] [id number] Jul, [facility] [address] [id number] [address] [place] [address], [place] [id number] Jul, [facility] [address] [id number] [address] [place] [address], [place] [id number] Jun, [facility] [address] [id number] [address] [place] [address], [place] [id number] Jun, [facility] [address] [id number] [address] [place] [address], [place] [id number] Jun, [facility] [address] [id number] [address] [place] [address], [place] [id number] May, [facility] [address] [id number] [address] [place] [address], [place] [id number] May, [facility] [address] [id number] [address] [place] [address], [place] [id number] Apr, [facility] [address] [id number] [address] [place] [address], [place] [id number] Apr, [facility] [address] [id number] [address] [place] [address], [place] [id number] Apr, [facility] [address] [id number] [address] [place] [address], [place] [id number] Apr, [facility] [address] [id number] [address] [place] [address], [place] [id number] March, [facility] [address] [id number] [address] [place] [address], [place] [id number] March, [facility] [address] [id number] [address] [place] [id number] March, [facility] [address] [id number] [address] [place] [id number] Jan, [facility] [address] [id number] [address] [place] [phone] Jan, [facility] [address] [id number] [address] [place] [phone] Jan, [facility] [address] [id number] [address] [place] [address], [place] [id number] Nov, [facility] [address] [id number] [address] [place] [id number] Nov, [facility] [address] [id number] [address] [place] [phone] Nov, [facility] [address] [id number] [address] [place] [phone] Nov, [facility] [address] [id number] [address] [place] [phone] Oct, [facility] [address] [id number] [address] [place] [phone] Oct, [facility] [address] [id number] [address] [place] [id number] Oct, [facility] [address] [id number] [address] [place] [id number] Oct, [facility] [address] [id number] [address] [place] [id number] Oct, [facility] [address] [id number] [address] [place] [id number] Oct, [facility] [address] [id number] [address] [place] [phone] Oct, IMMUNIZATIONS No Known Immunizations SOCIAL HISTORY Never Assessed REASON FOR VISIT EMR-[facility] PLAN OF CARE VITAL SIGNS MEDICATIONS Unknown [...]
--- OUTSIDE RECORDS SUMMARY | 2020-04-18 19:37 | XMS REPORT ---
Author Author Carroll CUNHA Organization [facility] Address [address] [place] [address] Care Team Providers Care General Activities Therapist Name Role Phone JS CUNHA Unavailable PROBLEMS Type Condition ICD9-CM Code [id number] Code Onset Dates Condition S tatus SNOMED Code Problem Arthritis M19.90 Active 7244795 Problem Essential hypertension I10 Active 15788463 Problem Chronic kidney disease, stage IV (severe) N18.4 Active 914896672 Problem Amputated left leg Z89.612 Active 1 [id number] Problem Gastroesophageal reflux disease, esophagitis pre sence not specified K21.9 Active 766915984 Problem Phantom limb pain G54.6 Active 57 95213924347 Problem Coronary disease I25.10 Active 537 11313 Problem penitentiary current use of insulin Z79.4 Active 540766496 Problem Secondary hyperparathyroidism of renal origin N25. 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 673803180 Problem Anxiety F41.9 Active [id number] ALLERGIES No Information ENCOUNTERS Encounter Location Date Diagnosis [place] [address] [facility] [id number] [address] [place] [phone] May, [facility] [address] [facility] [id number] [address] [place] [phone] Apr, Phantom limb pain G54.6 [facility] [address] [facility] [id number] [address] [place] [address] Apr, [facility] [address] [facility] [id number] [address] [place] [phone] Apr, [place] [address] [facility] [id number] [address] [place] [address] Apr, Nail hypertrophy L60.2 and S elf-care deficit for grooming and hygiene Z74.1 [facility] [address] [facility] [id number] [address] [place] [address] 16 Mar, 2019 Type 2 diabetes mellitus wit h diabetic nephropathy E11.21 ; Chronic kidney disease, stage IV (severe) N18.4 ; Anxiety F41.9 and Amputated left leg Z89.612 [facility] [address] [id number] [address] [place] [id number] 14 Mar, 2019 Anxiety F41.9 and Transient weakness of right lower extremity R29.898 [place] [address] [id number] [address] [place] [id number] 14 Mar, 2019 [place] [address] [facility] [id number] [address] [place] [phone] March, [place] [address] [facility] [id number] [address] [place] [phone] Feb, [place] [address] [facility] [id number] [address] [place] [phone] Aug, Anxiety F41.9 [place] [address] [facility] [id number] [address] [place] [address] Aug, Medicare annual wellness vis it, initial Z00.00 ; Encounter for immunization Z23 ; Coronary disease I25.10 ; Type 2 diabetes mellitus with diabetic nephropathy E11.21 ; Chronic kidney disease, stage IV (severe) N18.4 ; Secondary hyperparathyroidism of renal origin N25.81 ; Anxiety F41.9 and Gastroesophageal reflux disease, esophagitis presence not specified K21.9 [place] [address] [facility] [id number] [address] [place] [phone] 26 Jul, 2018 Friction blister of right lo wer extremity, initial encounter S80.821A [place] [address] [facility] [id number] [address] [place] [phone] 06 Jul, 2018 Localized edema R60.0 ; Type 2 diabetes mellitus with diabetic nephropathy E11.21 ; Coronary disease I25.10 and Anxiety F41.9 [place] [address] [facility] [id number] [address] [place] [phone] Jun, [facility] [address] [facility] [id number] [address] [place] [phone] March, Type 2 diabetes mellitus wit h diabetic nephropathy E11.21 ; 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.4 ; Chronic kidney disease, stage IV (severe) N18.4 ; Secondary hyperparathyroidism of renal origin N25.81 ; Coronary disease I25.10 and Gastroesophageal reflux disease, esophagitis presence not specified K21.9 [facility] [address] [facility] [id number] [address] [place] [address] Nov, Type 2 diabetes mellitus wit hout complications E11.9 ; Coronary disease I25.10 and Essential hypertension I10 [facility] [address] [facility] [id number] [address] [place] [address] May, Diabetes E11.9 [facility] [address] [place] [id number] [address] [place] [phone] Apr, Type 2 diabetes mellitus wit hout complications E11.9 and Arthritis M19.90 [facility] [address] [facility] [id number] [address] [place] [phone] March, Diabetes E11.9 [facility] [address] [facility] [id number] [address] [place] [phone] March, Diabetes E11.9 [facility] [address] [facility] [id number] [address] [place] [phone] March, [facility] [address] [facility] [id number] [address] [place] [phone] Feb, Diabetes E11.9 [facility] [address] [facility] [id number] [address] [place] [phone] Feb, Diabetes E11.9 [facility] [address] [facility] [id number] [address] [place] [phone] Jan, [facility] [address] [place] [id number] [address] [place] [address] Jan, Diabetes E11.9 [facility] [address] [id number] [address] [place] [phone] Jan, Type 2 diabetes mellitus wit hout complications E11.9 [facility] [address] [id number] [address] [place] [phone] Oct, [facility] [address] [id number] [address] [place] [phone] Oct, Gastroesophageal reflux dise ase, esophagitis presence not specified K21.9 [facility] [address] [id number] [address] [place] [phone] Sep, [facility] [address] [id number] [address] [place] [phone] Sep, [facility] [address] [id number] [address] [place] [phone] Sep, [facility] [address] [id number] [address] [place] [phone] Aug, [facility] [address] [id number] [address] [place] [phone] Aug, Diabetes E11.9 and Encounter for immunization Z23 [facility] [address] [id number] [address] [place] [phone] Aug, [facility] [address] [id number] [address] [place] [phone] Jul, [facility] [address] [id number] [address] [place] [phone] Jun, [facility] [address] [id number] [address] [place] [phone] May, Diabetes E11.9 [facility] [address] [id number] [address] [place] [phone] Apr, [facility] [address] [id number] [address] [place] [phone] Apr, [facility] [address] [id number] [address] [place] [phone] March, [facility] [address] [id number] [address] [place] [phone] March, [facility] [address] [id number] [address] [place] [phone] Feb, [facility] [address] [id number] [address] [place] [phone] Feb, [facility] [address] [id number] [address] [place] [phone] Feb, [facility] [address] [id number] [address] [place] [phone] Feb, [facility] [address] [id number] [address] [place] [phone] Feb, [facility] [address] [id number] [address] [place] [phone] Feb, Type 2 diabetes mellitus wit hout complications E11.9 [facility] [address] [id number] [address] [place] [phone] Feb, [facility] [address] [id number] [address] [place] [phone] Jan, [facility] [address] [id number] [address] [place] [phone] Dec, Eustachian tube dysfunction H69.80 and Diabetes E11.9 [facility] [address] [id number] [address] [place] [phone] Dec, [facility] [address] [id number] [address] [place] [phone] Dec, [facility] [address] [id number] [address] [place] [phone] Dec, Type 2 diabetes mellitus wit hout complications E11.9 ; Atherosclerotic heart disease of [place] coronary artery without angina pectoris I25.10 and Diabetes E11.9 [facility] [address] [id number] [address] [place] [phone] Dec, [facility] [address] [facility] [id number] [address] [place] [phone] Dec, CHF (congestive heart failur e) I50.9 [facility] [address] [facility] [id number] [address] [place] [phone] Nov, Diabetes E11.9 and Coronary disease I25.10 [facility] [address] [id number] [address] [place] [phone] Oct, [facility] [address] [facility] [id number] [address] [place] [phone] Aug, [facility] [address] [facility] [id number] [address] [place] [phone] Jul, [facility] [address] [place] [id number] [place] [phone] Jul, DM w/o complication type II 250.00 and Spontaneous bleeding of digits 459.0 [facility] [address] [facility] [id number] [address] [place] [phone] Apr, [facility] [address] [facility] [id number] [address] [place] [phone] Apr, [facility] [address] [facility] [id number] [address] [place] [phone] March, CHF (congestive heart failur e) 428.0 and Coronary atherosclerosis of unspecified type of vessel, [place] or graft 414.00 [facility] [address] [facility] [id number] [address] [place] [phone] March, [facility] [address] [facility] [id number] [address] [place] [phone] Feb, [facility] [address] [facility] [id number] [address] [place] [phone] Feb, [facility] [address] [place] [id number] [address] [place] [phone] Jan, [facility] [address] [id number] [address] [place] [address], [place] [address] Jan, [facility] [address] [id number] [address] [place] [address], [place] [address] Dec, 2014 [facility] [address] [id number] [address] [place] [address], [place] [address] Dec, [facility] [address] [id number] [address] [place] [address], [place] [address] Dec, 2014 [facility] [address] [id number] [address] [place] [address], [place] [address] Dec, 2014 [facility] [address] [id number] [address] [place] [address], [place] [address] Dec, [facility] [address] [id number] [address] [place] [address], [place] [address] Dec, [facility] [address] [id number] [address] [place] [address], [place] [address] Nov, [facility] [address] [id number] [address] [place] [address], [place] [address] Nov, [facility] [address] [id number] [address] [place] [address], [place] [address] Oct, [facility] [address] [id number] [address] [place] [address], [place] [address] Sep, [facility] [address] [id number] [address] [place] [address], [place] [address] Sep, [facility] [address] [id number] [address] [place] [address], [place] [address] Sep, [facility] [address] [id number] [address] [place] [address], [place] [address] Sep, [facility] [address] [id number] [address] [place] [address], [place] [address] Jul, [facility] [address] [id number] [address] [place] [address], [place] [address] 18 Jul, 2014 [facility] [address] [id number] [address] [place] [address], [place] [address] Jul, [facility] [address] [id number] [address] [place] [address], [place] [address] Jul, [facility] [address] [id number] [address] [place] [address], [place] [address] Jun, [facility] [address] [id number] [address] [place] [address], [place] [address] Jun, [facility] [address] [id number] [address] [place] [address], [place] [address] Jun, [facility] [address] [id number] [address] [place] [address], [place] [address] Jun, [facility] [address] [id number] [address] [place] [address], [place] [address] Apr, [facility] [address] [id number] [address] [place] [address], [place] [address] Apr, [facility] [address] [id number] [address] [place] [address], [place] [address] Apr, [facility] [address] [id number] [address] [place] [address], [place] [address] Apr, [facility] [address] [id number] [address] [place] [address], [place] [address] Dec, [facility] [address] [id number] [address] [place] [address], [place] [address] Dec, [facility] [address] [id number] [address] [place] [address], [place] [address] Dec, [facility] [address] [id number] [address] [place] [address], [place] [address] Dec, [facility] [address] [id number] [address] [place] [address], [place] [address] Dec, [facility] [address] [id number] [address] [place] [address], [place] [address] Dec, [facility] [address] [id number] [address] [place] [address], [place] [address] Nov, [facility] [address] [id number] [address] [place] [address], [place] [address] Nov, [facility] [address] [id number] [address] [place] [address], [place] [address] Sep, [facility] [address] [id number] [address] [place] [address], [place] [address] Sep, [facility] [address] [id number] [address] [place] [address], [place] [address] Sep, [facility] [address] [id number] [address] [place] [address], [place] [address] Sep, [facility] [address] [id number] [address] [place] [address], [place] [address] Sep, [facility] [address] [id number] [address] [place] [address], [place] [address] Aug, [facility] [address] [id number] [address] [place] [address], [place] [address] Aug, [facility] [address] [id number] [address] [place] [address], [place] [address] Aug, [facility] [address] [id number] [address] [place] [address], [place] [address] Aug, [facility] [address] [id number] [address] [place] [address], [place] [address] Jul, [facility] [address] [id number] [address] [place] [address], [place] [address] Jun, [facility] [address] [id number] [address] [place] [address], [place] [address] May, [facility] [address] [id number] [address] [place] [address], [place] [address] May, [facility] [address] [id number] [address] [place] [address], [place] [address] May, [facility] [address] [id number] [address] [place] [address], [place] [address] Apr, [facility] [address] [id number] [address] [place] [address], [place] [address] Apr, [facility] [address] [id number] [address] [place] [address], [place] [address] March, [facility] [address] [id number] [address] [place] [address], [place] [address] March, [facility] [address] [id number] [address] [place] [address], [place] [address] Feb, [facility] [address] [id number] [address] [place] [address], [place] [address] 15 Feb, 2013 [facility] [address] [id number] [address] [place] [address], [place] [address] Feb, [facility] [address] [id number] [address] [place] [address], [place] [address] Jan, [facility] [address] [id number] [address] [place] [address], [place] [address] Jan, [facility] [address] [id number] [address] [place] [address], [place] [address] Jan, [facility] [address] [id number] [address] [place] [address], [place] [address] Dec, [facility] [address] [id number] [address] [place] [address], [place] [address] Dec, [facility] [address] [id number] [address] [place] [address], [place] [address] Dec, [facility] [address] [id number] [address] [place] [address], [place] [address] Nov, [facility] [address] [id number] [address] [place] [address], [place] [address] Nov, [facility] [address] [id number] [address] [place] [address], [place] [address] Nov, [facility] [address] [id number] [address] [place] [address], [place] [address] Nov, [facility] [address] [id number] [address] [place] [address], [place] [address] Nov, [facility] [address] [id number] [address] [place] [address], [place] [address] Nov, [facility] [address] [id number] [address] [place] [address], [place] [address] Oct, [facility] [address] [id number] [address] [place] [address], [place] [address] Oct, [facility] [address] [id number] [address] [place] [address], [place] [address] Oct, [facility] [address] [id number] [address] [place] [address], [place] [address] Oct, [facility] [address] [id number] [address] [place] [address], [place] [address] Sep, [facility] [address] [id number] [address] [place] [address], [place] [address] Sep, [facility] [address] [id number] [address] [place] [address], [place] [address] Sep, [facility] [address] [id number] [address] [place] [address], [place] [address] Sep, [facility] [address] [id number] [address] [place] [address], [place] [address] Aug, [facility] [address] [id number] [address] [place] [address], [place] [address] 24 Jul, 2012 [facility] [address] [id number] [address] [place] [address], [place] [address] Jul, [facility] [address] [id number] [address] [place] [address], [place] [address] Jul, [facility] [address] [id number] [address] [place] [address], [place] [address] Jun, [facility] [address] [id number] [address] [place] [address], [place] [address] Jun, [facility] [address] [id number] [address] [place] [address], [place] [address] Jun, [facility] [address] [id number] [address] [place] [address], [place] [address] May, [facility] [address] [id number] [address] [place] [address], [place] [address] May, [facility] [address] [id number] [address] [place] [address], [place] [address] Apr, [facility] [address] [id number] [address] [place] [address], [place] [address] Apr, [facility] [address] [id number] [address] [place] [address], [place] [address] Apr, [facility] [address] [id number] [address] [place] [address], [place] [address] Apr, [facility] [address] [id number] [address] [place] [address], [place] [address] March, [facility] [address] [id number] [address] [place] [address], [place] [address] March, [facility] [address] [id number] [address] [place] [address], [place] [address] March, [facility] [address] [id number] [address] [place] [address], [place] [address] Jan, [facility] [address] [id number] [address] [place] [address], [place] [address] Jan, [facility] [address] [id number] [address] [place] [id number] 13 Jan, 2012 [facility] [address] [id number] [address] [place] [id number] Nov, [facility] [address] [id number] [address] [place] [phone] Nov, [facility] [address] [id number] [address] [place] [phone] Nov, [facility] [address] [id number] [address] [place] [phone] Nov, [facility] [address] [id number] [address] [place] [phone] Oct, [facility] [address] [id number] [address] [place] [phone] Oct, [facility] [address] [id number] [address] [place] [phone] Oct, [facility] [address] [id number] [address] [place] [phone] Oct, [facility] [address] [id number] [address] [place] [phone] Oct, [facility] [address] [id number] [address] [place] [phone] Oct, [facility] [address] [id number] [address] [place] [phone] Oct, IMMUNIZATIONS No Known Immunizations SOCIAL HISTORY Never Assessed REASON FOR VISIT PLAN OF CARE VITAL SIGNS Height 69 in 2014-12-22 Weight 204 lbs 2014-12-22 Temperature 98 degrees Fahrenheit 2014-12-22 Heart Rate 70 bpm 2014-12-22 Respiratory Rate 18 2014-12-22 Blood pressure systolic 130 mmHg 2014-12-22 Blood pressure diastolic 76 mmHg 2014-12-22 MEDICATIONS Unknown Medications RESULTS No Results PROCEDURES Procedure Date Ordered Result Body Site GLYCATED HEMOGLOBIN TEST Dec 22, 2014 INSTRUCTIONS MEDICATIONS ADMINISTERED No Known Medications MEDICAL (GENERAL) HISTORY Type Description Date Medical History chronic obstructive pulmonary disease (C OPD) Medical History diabetes mellitus Medical History Hypertension Medical History Hyperlipidemia Medical History Stroke syndrome 2006 Surgical History Left leg amputation 1998 Surgical History Cardiothoracic surgery Defibrillator 200 6 Hospitalization History surgeries
--- OUTSIDE RECORDS SUMMARY | 2020-04-18 19:37 | XMS REPORT ---
Author Author Carroll CUNHA Organization [facility] Address [address] [place] [address] Care Team Providers Care Inductor Tester Name Role Phone JS CUNHA Unavailable PROBLEMS Type Condition ICD9-CM Code NGY73-XA Code Onset Dates Condition S tatus SNOMED Code Problem Arthritis M19.90 Active 4013236 Problem Essential hypertension I10 Active 29932200 Problem Chronic kidney disease, stage IV (severe) N18.4 Active 608613701 Problem Amputated left leg Z89.612 Active 1 [id number] Problem Gastroesophageal reflux disease, esophagitis pre sence not specified K21.9 Active 159742377 Problem Phantom limb pain G54.6 Active 57 57220257759 Problem Coronary disease I25.10 Active 537 19888 Problem FCI current use of insulin Z79.4 Active 015936985 Problem Secondary hyperparathyroidism of renal origin N25. 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 027749031 Problem Anxiety F41.9 Active 68924823 ALLERGIES No Information ENCOUNTERS Encounter Location Date Diagnosis [place] [address] [address] [facility] [id number] [address] [place] [phone] May, [facility] [address] [facility] [id number] [address] [place] [phone] Apr, Phantom limb pain G54.6 [facility] [address] [facility] [id number] [address] [place] [phone] Apr, [place] [address] [facility] [id number] [address] [place] [phone] Apr, [place] [address] [address] [facility] [id number] [address] [place] [phone] Apr, Nail hypertrophy L60.2 and S elf-care deficit for grooming and hygiene Z74.1 [facility] [address] [facility] [id number] [address] [place] [phone] 16 Mar, 2019 Type 2 diabetes mellitus wit h diabetic nephropathy E11.21 ; Chronic kidney disease, stage IV (severe) N18.4 ; Anxiety F41.9 and Amputated left leg Z89.612 [facility] [address] [id number] [address] [place] [id number] 14 Mar, 2019 Anxiety F41.9 and Transient weakness of right lower extremity R29.898 [place] [address] [id number] [address] [place] [phone] 14 Mar, 2019 [place] [address] [address] [facility] [id number] [address] [place] [phone] March, [place] [address] [address] [facility] [id number] [address] [place] [phone] Feb, [place] [address] [address] [facility] [id number] [address] [place] [phone] Aug, Anxiety F41.9 [place] [address] [address] [facility] [id number] [address] [place] [phone] Aug, Medicare annual wellness vis it, initial Z00.00 ; Encounter for immunization Z23 ; Coronary disease I25.10 ; Type 2 diabetes mellitus with diabetic nephropathy E11.21 ; Chronic kidney disease, stage IV (severe) N18.4 ; Secondary hyperparathyroidism of renal origin N25.81 ; Anxiety F41.9 and Gastroesophageal reflux disease, esophagitis presence not specified K21.9 [place] [address] [address] [facility] [id number] [address] [place] [id number] 26 Jul, 2018 Friction blister of right lo wer extremity, initial encounter S80.821A [place] [address] [address] [facility] [id number] [address] [place] [phone] 06 Jul, 2018 Localized edema R60.0 ; Type 2 diabetes mellitus with diabetic nephropathy E11.21 ; Coronary disease I25.10 and Anxiety F41.9 [place] [address] [address] [facility] [id number] [address] [place] [phone] Jun, [facility] [address] [facility] [id number] [address] [place] [phone] March, Type 2 diabetes mellitus wit h diabetic nephropathy E11.21 ; 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.4 ; Chronic kidney disease, stage IV (severe) N18.4 ; Secondary hyperparathyroidism of renal origin N25.81 ; Coronary disease I25.10 and Gastroesophageal reflux disease, esophagitis presence not specified K21.9 [facility] [address] [facility] [id number] [address] [place] [phone] Nov, Type 2 diabetes mellitus wit hout complications E11.9 ; Coronary disease I25.10 and Essential hypertension I10 [facility] [address] [facility] [id number] [address] [place] [phone] May, Diabetes E11.9 [facility] [address] [place] [id number] [address] [place] [phone] Apr, Type 2 diabetes mellitus wit hout complications E11.9 and Arthritis M19.90 [facility] [address] [facility] [id number] [address] [place] [phone] March, Diabetes E11.9 [facility] [address] [facility] [id number] [address] [place] [phone] March, Diabetes E11.9 [facility] [address] [facility] [id number] [address] [place] [phone] March, [facility] [address] [facility] [id number] [address] [place] [phone] Feb, Diabetes E11.9 [facility] [address] [facility] [id number] [address] [place] [phone] Feb, Diabetes E11.9 [facility] [address] [facility] [id number] [address] [place] [phone] Jan, [facility] [address] [place] [id number] [address] [place] [phone] Jan, Diabetes E11.9 [facility] [address] [id number] [address] [place] [phone] Jan, Type 2 diabetes mellitus wit hout complications E11.9 [facility] [address] [id number] [address] [place] [phone] Oct, [facility] [address] [id number] [address] [place] [phone] Oct, Gastroesophageal reflux dise ase, esophagitis presence not specified K21.9 [facility] [address] [id number] [address] [place] [phone] Sep, [facility] [address] [id number] [address] [place] [phone] Sep, [facility] [address] [id number] [address] [place] [phone] Sep, [facility] [address] [id number] [address] [place] [phone] Aug, [facility] [address] [id number] [address] [place] [phone] Aug, Diabetes E11.9 and Encounter for immunization Z23 [facility] [address] [id number] [address] [place] [phone] Aug, [facility] [address] [id number] [address] [place] [phone] Jul, [facility] [address] [id number] [address] [place] [phone] Jun, [facility] [address] [id number] [address] [place] [phone] May, Diabetes E11.9 [facility] [address] [id number] [address] [place] [phone] Apr, [facility] [address] [id number] [address] [place] [phone] Apr, [facility] [address] [id number] [address] [place] [phone] March, [facility] [address] [id number] [address] [place] [phone] March, [facility] [address] [id number] [address] [place] [phone] Feb, [facility] [address] [id number] [address] [place] [id number] Feb, [facility] [address] [id number] [address] [place] [phone] Feb, [facility] [address] [id number] [address] [place] [phone] Feb, [facility] [address] [id number] [address] [place] [phone] Feb, [facility] [address] [id number] [address] [place] [phone] Feb, Type 2 diabetes mellitus wit hout complications E11.9 [facility] [address] [id number] [address] [place] [phone] Feb, [facility] [address] [id number] [address] [place] [phone] Jan, [facility] [address] [id number] [address] [place] [id number] Dec, Eustachian tube dysfunction H69.80 and Diabetes E11.9 [facility] [address] [id number] [address] [place] [phone] Dec, [facility] [address] [id number] [address] [place] [phone] Dec, [facility] [address] [id number] [address] [place] [phone] Dec, Type 2 diabetes mellitus wit hout complications E11.9 ; 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 and Diabetes E11.9 [facility] [address] [id number] [address] [place] [phone] Dec, [facility] [address] [facility] [id number] [address] [place] [phone] Dec, CHF (congestive heart failur e) I50.9 [facility] [address] [facility] [id number] [address] [place] [phone] Nov, Diabetes E11.9 and Coronary disease I25.10 [facility] [address] [id number] [address] [place] [phone] Oct, [facility] [address] [facility] [id number] [address] [place] [phone] Aug, [facility] [address] [facility] [id number] [address] [place] [phone] Jul, [facility] [address] [place] [id number] [place] [phone] Jul, DM w/o complication type II 250.00 and Spontaneous bleeding of digits 459.0 [facility] [address] [facility] [id number] [address] [place] [phone] Apr, [facility] [address] [facility] [id number] [address] [place] [phone] Apr, [facility] [address] [facility] [id number] [address] [place] [phone] March, CHF (congestive heart failur e) 428.0 and Coronary atherosclerosis of unspecified type of vessel, rosebud or graft 414.00 [facility] [address] [facility] [id number] [address] [place] [phone] March, [facility] [address] [facility] [id number] [address] [place] [phone] Feb, [facility] [address] [facility] [id number] [address] [place] [phone] Feb, [facility] [address] [place] [id number] [address] [place] [phone] Jan, [facility] [address] [id number] [address] [place] [address], [place] [phone] Jan, [facility] [address] [id number] [address] [place] [address], [place] [id number] Dec, 2014 [facility] [address] [id number] [address] [place] [address], [place] [phone] Dec, [facility] [address] [id number] [address] [place] [address], [place] [phone] Dec, 2014 [facility] [address] [id number] [address] [place] [address], [place] [phone] Dec, 2014 [facility] [address] [id number] [address] [place] [address], [place] [phone] Dec, [facility] [address] [id number] [address] [place] [address], [place] [id number] Dec, [facility] [address] [id number] [address] [place] [address], [place] [phone] Nov, [facility] [address] [id number] [address] [place] [address], [place] [id number] Nov, [facility] [address] [id number] [address] [place] [address], [place] [phone] Oct, [facility] [address] [id number] [address] [place] [address], [place] [phone] Sep, [facility] [address] [id number] [address] [place] [address], [place] [id number] Sep, [facility] [address] [id number] [address] [place] [address], [place] [phone] Sep, [facility] [address] [id number] [address] [place] [address], [place] [address] Sep, [facility] [address] [id number] [address] [place] [address], [place] [phone] Jul, [facility] [address] [id number] [address] [place] [address], [place] [phone] 18 Jul, 2014 [facility] [address] [id number] [address] [place] [address], [place] [phone] Jul, [facility] [address] [id number] [address] [place] [address], [place] [address] Jul, [facility] [address] [id number] [address] [place] [address], [place] [id number] Jun, [facility] [address] [id number] [address] [place] [address], [place] [address] Jun, [facility] [address] [id number] [address] [place] [address], [place] [address] Jun, [facility] [address] [id number] [address] [place] [address], [place] [phone] Jun, [facility] [address] [id number] [address] [place] [address], [place] [address] Apr, [facility] [address] [id number] [address] [place] [address], [place] [phone] Apr, [facility] [address] [id number] [address] [place] [address], [place] [address] Apr, [facility] [address] [id number] [address] [place] [address], [place] [address] Apr, [facility] [address] [id number] [address] [place] [address], [place] [address] Dec, [facility] [address] [id number] [address] [place] [address], [place] [address] Dec, [facility] [address] [id number] [address] [place] [address], [place] [address] Dec, [facility] [address] [id number] [address] [place] [address], [place] [address] Dec, [facility] [address] [id number] [address] [place] [address], [place] [phone] Dec, [facility] [address] [id number] [address] [place] [address], [place] [address] Dec, [facility] [address] [id number] [address] [place] [address], [place] [address] Nov, [facility] [address] [id number] [address] [place] [address], [place] [address] Nov, [facility] [address] [id number] [address] [place] [address], [place] [id number] Sep, [facility] [address] [id number] [address] [place] [address], [place] [address] Sep, [facility] [address] [id number] [address] [place] [address], [place] [address] Sep, [facility] [address] [id number] [address] [place] [address], [place] [address] Sep, [facility] [address] [id number] [address] [place] [address], [place] [id number] Sep, [facility] [address] [id number] [address] [place] [address], [place] [phone] Aug, [facility] [address] [id number] [address] [place] [address], [place] [address] Aug, [facility] [address] [id number] [address] [place] [address], [place] [address] Aug, [facility] [address] [id number] [address] [place] [address], [place] [address] Aug, [facility] [address] [id number] [address] [place] [address], [place] [phone] Jul, [facility] [address] [id number] [address] [place] [address], [place] [address] Jun, [facility] [address] [id number] [address] [place] [address], [place] [address] May, [facility] [address] [id number] [address] [place] [address], [place] [address] May, [facility] [address] [id number] [address] [place] [address], [place] [address] May, [facility] [address] [id number] [address] [place] [address], [place] [address] Apr, [facility] [address] [id number] [address] [place] [address], [place] [id number] Apr, [facility] [address] [id number] [address] [place] [address], [place] [address] March, [facility] [address] [id number] [address] [place] [address], [place] [address] March, [facility] [address] [id number] [address] [place] [address], [place] [id number] Feb, [facility] [address] [id number] [address] [place] [address], [place] [id number] 15 Feb, 2013 [facility] [address] [id number] [address] [place] [address], [place] [id number] Feb, [facility] [address] [id number] [address] [place] [address], [place] [id number] Jan, [facility] [address] [id number] [address] [place] [address], [place] [address] Jan, [facility] [address] [id number] [address] [place] [address], [place] [address] Jan, [facility] [address] [id number] [address] [place] [address], [place] [id number] Dec, [facility] [address] [id number] [address] [place] [address], [place] [address] Dec, [facility] [address] [id number] [address] [place] [address], [place] [address] Dec, [facility] [address] [id number] [address] [place] [address], [place] [address] Nov, [facility] [address] [id number] [address] [place] [address], [place] [address] Nov, [facility] [address] [id number] [address] [place] [address], [place] [address] Nov, [facility] [address] [id number] [address] [place] [address], [place] [address] Nov, [facility] [address] [id number] [address] [place] [address], [place] [address] Nov, [facility] [address] [id number] [address] [place] [address], [place] [address] Nov, [facility] [address] [id number] [address] [place] [address], [place] [id number] Oct, [facility] [address] [id number] [address] [place] [address], [place] [id number] Oct, [facility] [address] [id number] [address] [place] [address], [place] [id number] Oct, [facility] [address] [id number] [address] [place] [address], [place] [id number] Oct, [facility] [address] [id number] [address] [place] [address], [place] [id number] Sep, [facility] [address] [id number] [address] [place] [address], [place] [id number] Sep, [facility] [address] [id number] [address] [place] [address], [place] [id number] Sep, [facility] [address] [id number] [address] [place] [address], [place] [id number] Sep, [facility] [address] [id number] [address] [place] [address], [place] [phone] Aug, [facility] [address] [id number] [address] [place] [address], [place] [id number] 24 Jul, 2012 [facility] [address] [id number] [address] [place] [address], [place] [id number] Jul, [facility] [address] [id number] [address] [place] [address], [place] [id number] Jul, [facility] [address] [id number] [address] [place] [address], [place] [id number] Jun, [facility] [address] [id number] [address] [place] [address], [place] [id number] Jun, [facility] [address] [id number] [address] [place] [address], [place] [id number] Jun, [facility] [address] [id number] [address] [place] [address], [place] [id number] May, [facility] [address] [id number] [address] [place] [address], [place] [id number] May, [facility] [address] [id number] [address] [place] [address], [place] [id number] Apr, [facility] [address] [id number] [address] [place] [address], [place] [id number] Apr, [facility] [address] [id number] [address] [place] [address], [place] [id number] Apr, [facility] [address] [id number] [address] [place] [address], [place] [id number] Apr, [facility] [address] [id number] [address] [place] [address], [place] [id number] March, [facility] [address] [id number] [address] [place] [address], [place] [id number] March, [facility] [address] [id number] [address] [place] [address], [place] [id number] March, [facility] [address] [id number] [address] [place] [address], [place] [id number] Jan, [facility] [address] [id number] [address] [place] [address], [place] [id number] Jan, [facility] [address] [id number] [address] [place] [id number] 13 Jan, 2012 [facility] [address] [id number] [address] [place] [id number] Nov, [facility] [address] [id number] [address] [place] [id number] Nov, [facility] [address] [id number] [address] [place] [id number] Nov, [facility] [address] [id number] [address] [place] [id number] Nov, [facility] [address] [id number] [address] [place] [id number] Oct, [facility] [address] [id number] [address] [place] [id number] Oct, [facility] [address] [id number] [address] [place] [id number] Oct, [facility] [address] [id number] [address] [place] [phone] Oct, [facility] [facility] [address] [id number] [address] [place] [id number] Oct, [facility] [address] [id number] [address] [place] [id number] Oct, [facility] [address] [id number] [address] [place] [id number] Oct, IMMUNIZATIONS No Known Immunizations SOCIAL HISTORY [...]
--- OUTSIDE RECORDS SUMMARY | 2020-04-18 19:37 | XMS REPORT ---
Author Author Carroll CUNHA Organization [facility] Address [address] [place] [address] Care Team Providers Care Security Assistant Name Role Phone JS CUNHA Unavailable PROBLEMS Type Condition ICD9-CM Code RUK58-TX Code Onset Dates Condition S tatus SNOMED Code Problem Arthritis M19.90 Active 3535151 Problem Essential hypertension I10 Active 45846606 Problem Chronic kidney disease, stage IV (severe) N18.4 Active 900796900 Problem Amputated left leg Z89.612 Active 1 [id number] Problem Gastroesophageal reflux disease, esophagitis pre sence not specified K21.9 Active 800367422 Problem Phantom limb pain G54.6 Active 57 72816222054 Problem Coronary disease I25.10 Active 537 17960 Problem intermediate current use of insulin Z79.4 Active 540107386 Problem Secondary hyperparathyroidism of renal origin N25. 81 Active 28345093 Problem Type 2 diabetes mellitus with diabetic nephropathy E11.21 Active 520390628 Problem Anxiety F41.9 Active 46692917 ALLERGIES No Information ENCOUNTERS Encounter Location Date Diagnosis [place] [address] [address] [facility]NOTE [facility]] [id number] [address] [place] [id number] May, [facility] [address] [facility]NOTE [facility]] [id number] [address] [place] [id number] Apr, Phantom limb pain G54.6 [facility] [address] [facility]NOTE [facility]] [id number] [address] [place] [id number] Apr, [place] [address] [facility]NOTE 3] [id number] [address] [place] [id number] Apr, [place] [address] [address] [facility]NOTE [facility]] [id number] [address] [place] [id number] Apr, Nail hypertrophy L60.2 and S elf-care deficit for grooming and hygiene Z74.1 [facility] [address] [facility]NOTE 3] [id number] [address] [place] [id number] 16 Mar, 2019 Type 2 diabetes mellitus wit h diabetic nephropathy E11.21 ; Chronic kidney disease, stage IV (severe) N18.4 ; Anxiety F41.9 and Amputated left leg Z89.612 [facility] [address] [id number] [address] [place] [id number] 14 Mar, 2019 Anxiety F41.9 and Transient weakness of right lower extremity R29.898 [place] [address] [id number] [address] [place] [id number] 14 Mar, 2019 [place] [address] [address] [facility]NOTE 3] [id number] [address] [place] [id number] March, [place] [address] [address] [facility]NOTE 3] [id number] [address] [place] [id number] Feb, [place] [address] [address] [facility]NOTE 3] [id number] [address] [place] [id number] Aug, Anxiety F41.9 [place] [address] [address] [facility]NOTE 3] [id number] [address] [place] [id number] Aug, Medicare annual wellness vis it, initial Z00.00 ; Encounter for immunization Z23 ; Coronary disease I25.10 ; Type 2 diabetes mellitus with diabetic nephropathy E11.21 ; Chronic kidney disease, stage IV (severe) N18.4 ; Secondary hyperparathyroidism of renal origin N25.81 ; Anxiety F41.9 and Gastroesophageal reflux disease, esophagitis presence not specified K21.9 [place] [address] [address] [facility]NOTE 3] [id number] [address] [place] [id number] 26 Jul, 2018 Friction blister of right lo wer extremity, initial encounter S80.821A [place] [address] [address] [facility]] [id number] [address] [place] [id number] 06 Jul, 2018 Localized edema R60.0 ; Type 2 diabetes mellitus with diabetic nephropathy E11.21 ; Coronary disease I25.10 and Anxiety F41.9 [place] [address] [address] [facility] 3] [id number] [address] [place] [id number] Jun, [facility] [address] [facility]] [id number] [address] [place] [id number] March, Type 2 diabetes mellitus wit h diabetic nephropathy E11.21 ; emt intermediate current use of insulin Z79.4 ; Chronic kidney disease, stage IV (severe) N18.4 ; Secondary hyperparathyroidism of renal origin N25.81 ; Coronary disease I25.10 and Gastroesophageal reflux disease, esophagitis presence not specified K21.9 [facility] [address] [facility]NOTE 3] [id number] [address] [place] [id number] Nov, Type 2 diabetes mellitus wit hout complications E11.9 ; Coronary disease I25.10 and Essential hypertension I10 [facility] [address] [facility] 3] [id number] [address] [place] [id number] May, Diabetes E11.9 [facility] [address] [place] [id number] [address] [place] [id number] Apr, Type 2 diabetes mellitus wit hout complications E11.9 and Arthritis M19.90 [facility] [address] [facility]NOTE 3] [id number] [address] [place] [id number] March, Diabetes E11.9 [facility] [address] [facility] 3] [id number] [address] [place] [id number] March, Diabetes E11.9 [facility] [address] [facility] 3] [id number] [address] [place] [id number] March, [facility] [address] [facility]NOTE 3] [id number] [address] [place] [id number] Feb, Diabetes E11.9 [facility] [address] [facility]NOTE 3] [id number] [address] [place] [id number] Feb, Diabetes E11.9 [facility] [address] [facility] 3] [id number] [address] [place] [id number] Jan, [facility] [address] [place] [id number] [address] [place] [id number] Jan, Diabetes E11.9 [facility] [address] [id number] [address] [place] [id number] Jan, Type 2 diabetes mellitus wit hout complications E11.9 [facility] [address] [id number] [address] [place] [id number] Oct, [facility] [address] [id number] [address] [place] [id number] Oct, Gastroesophageal reflux dise ase, esophagitis presence not specified K21.9 [facility] [address] [id number] [address] [place] [id number] Sep, [facility] [address] [id number] [address] [place] [phone] Sep, [facility] [address] [id number] [address] [place] [phone] Sep, [facility] [address] [id number] [address] [place] [id number] Aug, [facility] [address] [id number] [address] [place] [id number] Aug, Diabetes E11.9 and Encounter for immunization Z23 [facility] [address] [id number] [address] [place] [id number] Aug, [facility] [address] [id number] [address] [place] [id number] Jul, [facility] [address] [id number] [address] [place] [id number] Jun, [facility] [address] [id number] [address] [place] [id number] May, Diabetes E11.9 [facility] [address] [id number] [address] [place] [id number] Apr, [facility] [address] [id number] [address] [place] [id number] Apr, [facility] [address] [id number] [address] [place] [id number] March, [facility] [address] [id number] [address] [place] [id number] March, [facility] [address] [id number] [address] [place] [id number] Feb, [facility] [address] [id number] [address] [place] [id number] Feb, [facility] [address] [id number] [address] [place] [id number] Feb, [facility] [address] [id number] [address] [place] [id number] Feb, [facility] [address] [id number] [address] [place] [id number] Feb, [facility] [address] [id number] [address] [place] [id number] Feb, Type 2 diabetes mellitus wit hout complications E11.9 [facility] [address] [id number] [address] [place] [id number] Feb, [facility] [address] [id number] [address] [place] [id number] Jan, [facility] [address] [id number] [address] [place] [id number] Dec, Eustachian tube dysfunction H69.80 and Diabetes E11.9 [facility] [address] [id number] [address] [place] [id number] Dec, [facility] [address] [id number] [address] [place] [id number] Dec, [facility] [address] [id number] [address] [place] [id number] Dec, Type 2 diabetes mellitus wit hout complications E11.9 ; Atherosclerotic heart disease of [place]ot[place] coronary artery without angina pectoris I25.10 and Diabetes E11.9 [facility] [address] [id number] [address] [place] [id number] Dec, [facility] [address] [facility]] [id number] [address] [place] [id number] Dec, CHF (congestive heart failur e) I50.9 [facility] [address] [facility] 3] [id number] [address] [place] [id number] Nov, Diabetes E11.9 and Coronary disease I25.10 [facility] [address] [id number] [address] [place] [id number] Oct, [facility] [address] [facility] 3] [id number] [address] [place] [id number] Aug, [facility] [address] [facility] 3] [id number] [address] [place] [id number] Jul, [facility] [address] [place] [id number] [place] [phone] Jul, DM w/o complication type II 250.00 and Spontaneous bleeding of digits 459.0 [facility] [address] [facility] 3] [id number] [address] [place] [id number] Apr, [facility] [address] [facility] 3] [id number] [address] [place] [id number] Apr, [facility] [address] [facility] 3] [id number] [address] [place] [phone] March, CHF (congestive heart failur e) 428.0 and Coronary atherosclerosis of unspecified type of vessel, kotlik or graft 414.00 [facility] [address] [facility] 3] [id number] [address] [place] [id number] March, [facility] [address] [facility] 3] [id number] [address] [place] [id number] Feb, [facility] [address] [facility] 3] [id number] [address] [place] [id number] Feb, [facility] [address] [place] [id number] [address] [place] [phone] Jan, [facility] [address] [id number] [address] [place] [address], [place] [address] Jan, [facility] [address] [id number] [address] [place] [address], [place] [address] Dec, 2014 [facility] [address] [id number] [address] [place] [address], [place] [address] Dec, [facility] [address] [id number] [address] [place] [address], [place] [address] Dec, 2014 [facility] [address] [id number] [address] [place] [address], [place] [address] Dec, 2014 [facility] [address] [id number] [address] [place] [address], [place] [address] Dec, [facility] [address] [id number] [address] [place] [address], [place] [address] Dec, [facility] [address] [id number] [address] [place] [address], [place] [address] Nov, [facility] [address] [id number] [address] [place] [address], [place] [address] Nov, [facility] [address] [id number] [address] [place] [address], [place] [address] Oct, [facility] [address] [id number] [address] [place] [address], [place] [address] Sep, [facility] [address] [id number] [address] [place] [address], [place] [address] Sep, [facility] [address] [id number] [address] [place] [address], [place] [address] Sep, [facility] [address] [id number] [address] [place] [address], [place] [address] Sep, [facility] [address] [id number] [address] [place] [address], [place] [address] Jul, [facility] [address] [id number] [address] [place] [address], [place] [address] 18 Jul, 2014 [facility] [address] [id number] [address] [place] [address], [place] [address] Jul, [facility] [address] [id number] [address] [place] [address], [place] [address] Jul, [facility] [address] [id number] [address] [place] [address], [place] [address] Jun, [facility] [address] [id number] [address] [place] [address], [place] [address] Jun, [facility] [address] [id number] [address] [place] [address], [place] [address] Jun, [facility] [address] [id number] [address] [place] [address], [place] [address] Jun, [facility] [address] [id number] [address] [place] [address], [place] [address] Apr, [facility] [address] [id number] [address] [place] [address], [place] [address] Apr, [facility] [address] [id number] [address] [place] [address], [place] [address] Apr, [facility] [address] [id number] [address] [place] [address], [place] [address] Apr, [facility] [address] [id number] [address] [place] [address], [place] [address] Dec, [facility] [address] [id number] [address] [place] [address], [place] [address] Dec, [facility] [address] [id number] [address] [place] [address], [place] [address] Dec, [facility] [address] [id number] [address] [place] [address], [place] [address] Dec, [facility] [address] [id number] [address] [place] [address], [place] [address] Dec, [facility] [address] [id number] [address] [place] [address], [place] [address] Dec, [facility] [address] [id number] [address] [place] [address], [place] [address] Nov, [facility] [address] [id number] [address] [place] [address], [place] [address] Nov, [facility] [address] [id number] [address] [place] [address], [place] [address] Sep, [facility] [address] [id number] [address] [place] [address], [place] [address] Sep, [facility] [address] [id number] [address] [place] [address], [place] [address] Sep, [facility] [address] [id number] [address] [place] [address], [place] [address] Sep, [facility] [address] [id number] [address] [place] [address], [place] [address] Sep, [facility] [address] [id number] [address] [place] [address], [place] [address] Aug, [facility] [address] [id number] [address] [place] [address], [place] [address] Aug, [facility] [address] [id number] [address] [place] [address], [place] [address] Aug, [facility] [address] [id number] [address] [place] [address], [place] [address] Aug, [facility] [address] [id number] [address] [place] [address], [place] [address] Jul, [facility] [address] [id number] [address] [place] [address], [place] [address] Jun, [facility] [address] [id number] [address] [place] [address], [place] [address] May, [facility] [address] [id number] [address] [place] [address], [place] [address] May, [facility] [address] [id number] [address] [place] [address], [place] [address] May, [facility] [address] [id number] [address] [place] [address], [place] [address] Apr, [facility] [address] [id number] [address] [place] [address], [place] [address] Apr, [facility] [address] [id number] [address] [place] [address], [place] [address] March, [facility] [address] [id number] [address] [place] [address], [place] [address] March, [facility] [address] [id number] [address] [place] [address], [place] [address] Feb, [facility] [address] [id number] [address] [place] [address], [place] [address] 15 Feb, 2013 [facility] [address] [id number] [address] [place] [address], [place] [address] Feb, [facility] [address] [id number] [address] [place] [address], [place] [address] Jan, [facility] [address] [id number] [address] [place] [address], [place] [address] Jan, [facility] [address] [id number] [address] [place] [address], [place] [address] Jan, [facility] [address] [id number] [address] [place] [address], [place] [address] Dec, [facility] [address] [id number] [address] [place] [address], [place] [address] Dec, [facility] [address] [id number] [address] [place] [address], [place] [address] Dec, [facility] [address] [id number] [address] [place] [address], [place] [address] Nov, [facility] [address] [id number] [address] [place] [address], [place] [address] Nov, [facility] [address] [id number] [address] [place] [address], [place] [address] Nov, [facility] [address] [id number] [address] [place] [address], [place] [address] Nov, [facility] [address] [id number] [address] [place] [address], [place] [address] Nov, [facility] [address] [id number] [address] [place] [address], [place] [address] Nov, [facility] [address] [id number] [address] [place] [address], [place] [address] Oct, [facility] [address] [id number] [address] [place] [address], [place] [address] Oct, [facility] [address] [id number] [address] [place] [address], [place] [id number] Oct, [facility] [address] [id number] [address] [place] [address], [place] [id number] Oct, [facility] [address] [id number] [address] [place] [address], [place] [id number] Sep, [facility] [address] [id number] [address] [place] [address], [place] [id number] Sep, [facility] [address] [id number] [address] [place] [address], [place] [id number] Sep, [facility] [address] [id number] [address] [place] [address], [place] [id number] Sep, [facility] [address] [id number] [address] [place] [address], [place] [id number] Aug, [facility] [address] [id number] [address] [place] [address], [place] [id number] 24 Jul, 2012 [facility] [address] [id number] [address] [place] [address], [place] [id number] Jul, [facility] [address] [id number] [address] [place] [address], [place] [id number] Jul, [facility] [address] [id number] [address] [place] [address], [place] [id number] Jun, [facility] [address] [id number] [address] [place] [address], [place] [id number] Jun, [facility] [address] [id number] [address] [place] [address], [place] [id number] Jun, [facility] [address] [id number] [address] [place] [address], [place] [id number] May, [facility] [address] [id number] [address] [place] [address], [place] [id number] May, [facility] [address] [id number] [address] [place] [address], [place] [id number] Apr, [facility] [address] [id number] [address] [place] [address], [place] [id number] Apr, [facility] [address] [id number] [address] [place] [address], [place] [id number] Apr, [facility] [address] [id number] [address] [place] [address], [place] [id number] Apr, [facility] [address] [id number] [address] [place] [address], [place] [id number] March, [facility] [address] [id number] [address] [place] [address], [place] [id number] March, [facility] [address] [id number] [address] [place] [address], [place] [id number] March, [facility] [address] [id number] [address] [place] [address], [place] [id number] Jan, [facility] [address] [id number] [address] [place] [address], [place] [id number] Jan, [facility] [address] [id number] [address] [place] [id number] 13 Jan, 2012 [facility] [address] [id number] [address] [place] [id number] Nov, [facility] [address] [id number] [address] [place] [id number] Nov, [facility] [address] [id number] [address] [place] [id number] Nov, [facility] [address] [id number] [address] [place] [id number] Nov, [facility] [address] [id number] [address] [place] [id number] Oct, [facility] [address] [id number] [address] [place] [id number] Oct, [facility] [address] [id number] [address] [place] [id number] Oct, [facility] [address] [id number] [address] [place] [id number] Oct, [facility] [address] [id number] [address] [place] [id number] Oct, [facility] [address] [id number] [address] [place] [id number] Oct, [facility] [address] [id number] [place] [id number] Oct, IMMUNIZATIONS No Known Immunizations SOCIAL HISTORY [...]
--- OUTSIDE RECORDS SUMMARY | 2020-04-18 19:37 | XMS REPORT ---
Author Author Carroll Cannon Doctor Organization [facility] Address Unknown Phone Unavailable Care Team Providers Care Manager Technical Name Role Phone Migration, Doctor Unavailable Unavailable PROBLEMS Type Condition ICD9-CM Code ISH64-TT Code Onset Dates Condition S tatus SNOMED Code Problem Gastroesophageal reflux disease, esophagitis pre sence not specified K21.9 Active 728291298 Problem Arthritis M19.90 Active 0829537 Problem Essential hypertension I10 Active 20151158 Problem Anxiety F41.9 Active 30076229 Problem Coronary disease I25.10 Active 537 46287 Problem Amputated left leg Z89.612 Active 1 [id number] Problem Chronic kidney disease, stage IV (severe) N18.4 Active 501832859 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 [id number] ALLERGIES No Information ENCOUNTERS Encounter Location Date Diagnosis [place] [id number] [place] [id number] [address] [place] [address] Apr, [place] [address] [place] [id number] [address] [place] [address] March, Type 2 diabetes mellitus wit h diabetic nephropathy E11.21 ; Chronic kidney disease, stage IV (severe) N18.4 ; Anxiety F41.9 and Amputated left leg Z89.612 [facility] [place] [address] [id number] [address] [place] [address] March, Anxiety F41.9 and Transient weakness of right lower extremity R29.898 [facility] [place] [address] [id number] [address] [place] [address] March, [facility] [place] [address] [place] [id number] [address] [place] [address] March, [facility] [place] [address] [address] Feb, [place] [address] [address] Aug, Anxiety F41.9 [place] [address] [address] Aug, Medicare annual wellness vis it, initial Z00.00 ; Encounter for immunization Z23 ; Coronary disease I25.10 ; Type 2 diabetes mellitus with diabetic nephropathy E11.21 ; Chronic kidney disease, stage IV (severe) N18.4 ; Secondary hyperparathyroidism of renal origin N25.81 ; Anxiety F41.9 and Gastroesophageal reflux disease, esophagitis presence not specified K21.9 [place] [address] [address] Jul, Friction blister of right lo wer extremity, initial encounter S80.821A [address] [address] Jul, Localized edema R60.0 ; Type 2 diabetes mellitus with diabetic nephropathy E11.21 ; Coronary disease I25.10 and Anxiety F41.9 [place] [address] [address] Jun, [place] [address] [address] March, Type 2 diabetes mellitus wit h diabetic nephropathy E11.21 ; 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.4 ; Chronic kidney disease, stage IV (severe) N18.4 ; Secondary hyperparathyroidism of renal origin N25.81 ; Coronary disease I25.10 and Gastroesophageal reflux disease, esophagitis presence not specified K21.9 [place] [address] [address] Nov, Type 2 diabetes mellitus wit hout complications E11.9 ; Coronary disease I25.10 and Essential hypertension I10 [address] [address] May, Diabetes E11.9 [facility] [place] [address] [id number] [address] [place] [address] Apr, Type 2 diabetes mellitus wit hout complications E11.9 and Arthritis M19.90 [facility] [place] [address] [id number] [address] [place] [address] March, Diabetes E11.9 [facility] [place] [address] [id number] [address] [place] [address] March, Diabetes E11.9 [facility] [place] [address] [id number] [address] [place] [address] March, [facility] [place] [address] [id number] [address] [place] [address] Feb, Diabetes E11.9 [facility] [place] [address] [id number] [address] [place] [address] Feb, Diabetes E11.9 [facility] [place] [address] [id number] [address] [place] [phone] Jan, [facility] [place] [address] [id number] [address] [place] [address] Jan, Diabetes E11.9 [facility] [place] [address] [id number] [address] [place] [address] Jan, Type 2 diabetes mellitus wit hout complications E11.9 [facility] [place] [address] [id number] [address] [place] [address] Oct, [facility] [place] [address] [id number] [address] [place] [address] Oct, Gastroesophageal reflux dise ase, esophagitis presence not specified K21.9 [facility] [place] [address] [id number] [address] [place] [address] Sep, [facility] [place] [address] [id number] [address] [place] [address] Sep, [facility] [place] [address] [id number] [address] [place] [address] Sep, [facility] [place] [address] [id number] [address] [place] [address], [place] [address] Aug, [facility] [address] [id number] [address] [place] [address], [place] [address] Aug, Diabetes E11.9 and Encounter for immunization Z23 [facility] [place] [address] [id number] [address] [place] [address], [place] [address] Aug, [facility] [place] [address] [id number] [address] [place] [address], [place] [address] Jul, [facility] [place] [address] [id number] [address] [place] [address], [place] [address] Jun, [facility] [place] [address] [id number] [address] [place] [address], [place] [address] May, Diabetes E11.9 [facility] [place] [address] [id number] [address] [place] [address], [place] [address] Apr, [facility] [place] [address] [id number] [address] [place] [address], [place] [address] Apr, [facility] [place] [address] [id number] [address] [place] [address], [place] [address] March, [facility] [place] [address] [id number] [address] [place] [address], [place] [address] March, [facility] [place] [address] [id number] [address] [place] [address], [place] [address] Feb, [facility] [place] [address] [id number] [address] [place] [address], [place] [address] Feb, [facility] [address] [id number] [address] [place] [address], [place] [address] 18 Feb, 2016 [facility] [place] [address] [id number] [address] [place] [address], [place] [address] 14 Feb, 2016 [facility] [place] [address] [id number] [address] [place] [address] Feb, [facility] [place] [address] [id number] [address] [place] [address] Feb, Type 2 diabetes mellitus wit hout complications E11.9 [facility] [place] [address] [id number] [address] [place] [address] Feb, [facility] [place] [address] [id number] [address] [place] [address] Jan, [facility] [place] [address] [id number] [address] [place] [address] Dec, Eustachian tube dysfunction H69.80 and Diabetes E11.9 [facility] [place] [address] [id number] [address] [place] [address] Dec, [facility] [place] [address] [id number] [address] [place] [address] Dec, [facility] [place] [address] [id number] [address] [place] [address] Dec, Type 2 diabetes mellitus wit hout complications E11.9 ; Atherosclerotic heart disease of [place] coronary artery without angina pectoris I25.10 and Diabetes E11.9 [facility] [place] [address] [id number] [address] [place] [address] Dec, [facility] [place] [address] [id number] [address] [place] [address] Dec, CHF (congestive heart failur e) I50.9 [facility] [place] [address] [id number] [address] [place] [address] Nov, Diabetes E11.9 and Coronary disease I25.10 [facility] [place] [address] [id number] [address] [place] [address] Oct, [facility] [place] [address] [id number] [address] [place] [address] Aug, [facility] [place] [address] [id number] [address] [place] [address] Jul, [facility] [place] [address] [id number] [address] [place] [address] Jul, DM w/o complication type II 250.00 and Spontaneous bleeding of digits 459.0 [facility] [place] [address] [id number] [address] [place] [address] Apr, [facility] [place] [address] [id number] [address] [place] [address] Apr, [facility] [place] [address] [id number] [address] [place] [address] March, CHF (congestive heart failur e) 428.0 and Coronary atherosclerosis of unspecified type of vessel, [place]ock or graft 414.00 [facility] [place] [address] [id number] [address] [place] [phone] March, [facility] [place] [address] [id number] [address] [place] [id number] Feb, [facility] [place] [address] [id number] [address] [place] [id number] Feb, [facility] [place] [address] [id number] [address] [place] [address] Jan, [facility] [place] [address] [id number] [address] [place] [id number] Jan, [facility] [place] [address] [id number] [address] [place] [id number] Dec, [facility] [place] [address] [id number] [address] [place] [address] Dec, [facility] [place] [address] [id number] [address] [place] [address] Dec, [facility] [place] [address] [id number] [address] [place] [id number] Dec, [facility] [place] [address] [id number] [address] [place] [address] Dec, [facility] [address] [id number] [address] [place] [address], [place] [address] Dec, [facility] [address] [id number] [address] [place] [address], [place] [address] Nov, [facility] [address] [id number] [address] [place] [address], [place] [address] Nov, [facility] [address] [id number] [address] [place] [address], [place] [address] Oct, [facility] [address] [id number] [address] [place] [address], [place] [address] Sep, [facility] [address] [id number] [address] [place] [address], [place] [address] Sep, [facility] [address] [id number] [address] [place] [address], [place] [address] Sep, [facility] [address] [id number] [address] [place] [address], [place] [address] Sep, [facility] [address] [id number] [address] [place] [address], [place] [address] Jul, [facility] [address] [id number] [address] [place] [address], [place] [address] Jul, [facility] [address] [id number] [address] [place] [address], [place] [address] Jul, [facility] [address] [id number] [address] [place] [address], [place] [address] Jul, [facility] [address] [id number] [address] [place] [address], [place] [address] Jun, [facility] [address] [id number] [address] [place] [address], [place] [address] Jun, [facility] [address] [id number] [address] [place] [address], [place] [address] Jun, [facility] [address] [id number] [address] [place] [address], [place] [address] Jun, [facility] [address] [id number] [address] [place] [address], [place] [address] Apr, [facility] [address] [id number] [address] [place] [address], [place] [address] Apr, [facility] [address] [id number] [address] [place] [address], [place] [address] Apr, [facility] [address] [id number] [address] [place] [address], [place] [address] Apr, [facility] [address] [id number] [address] [place] [address], [place] [address] Dec, [facility] [address] [id number] [address] [place] [address], [place] [address] Dec, [facility] [address] [id number] [address] [place] [address], [place] [address] Dec, [facility] [address] [id number] [address] [place] [address], [place] [address] Dec, [facility] [address] [id number] [address] [place] [address], [place] [address] Dec, [facility] [address] [id number] [address] [place] [address], [place] [address] Dec, [facility] [address] [id number] [address] [place] [address], [place] [address] Nov, [facility] [address] [id number] [address] [place] [address], [place] [address] Nov, [facility] [address] [id number] [address] [place] [address], [place] [address] Sep, [facility] [address] [id number] [address] [place] [address], [place] [address] Sep, [facility] [address] [id number] [address] [place] [address], [place] [address] Sep, [facility] [address] [id number] [address] [place] [address], [place] [address] Sep, [facility] [address] [id number] [address] [place] [address], [place] [address] Sep, [facility] [address] [id number] [address] [place] [address], [place] [address] Aug, [facility] [address] [id number] [address] [place] [address], [place] [address] Aug, [facility] [address] [id number] [address] [place] [address], [place] [address] Aug, [facility] [address] [id number] [address] [place] [address], [place] [address] Aug, [facility] [address] [id number] [address] [place] [address], [place] [address] Jul, [facility] [address] [id number] [address] [place] [address], [place] [address] Jun, [facility] [address] [id number] [address] [place] [address], [place] [address] May, [facility] [address] [id number] [address] [place] [address], [place] [address] May, [facility] [address] [id number] [address] [place] [address], [place] [address] May, [facility] [address] [id number] [address] [place] [address], [place] [address] Apr, [facility] [address] [id number] [address] [place] [address], [place] [address] Apr, [facility] [address] [id number] [address] [place] [address], [place] [address] March, [facility] [address] [id number] [address] [place] [address], [place] [address] March, [facility] [address] [id number] [address] [place] [address], [place] [address] 18 Feb, 2013 [facility] [address] [id number] [address] [place] [address], [place] [address] 15 Feb, 2013 [facility] [address] [id number] [address] [place] [address], [place] [address] 10 Feb, 2013 [facility] [address] [id number] [address] [place] [address], [place] [address] 21 Jan, 2013 [facility] [address] [id number] [address] [place] [address], [place] [address] 18 Jan, 2013 [facility] [address] [id number] [address] [place] [address], [place] [address] Jan, [facility] [address] [id number] [address] [place] [address], [place] [address] Dec, [facility] [address] [id number] [address] [place] [address], [place] [address] Dec, [facility] [address] [id number] [address] [place] [address], [place] [address] Dec, [facility] [address] [id number] [address] [place] [address], [place] [address] Nov, [facility] [address] [id number] [address] [place] [address], [place] [address] Nov, [facility] [address] [id number] [address] [place] [address], [place] [address] Nov, [facility] [address] [id number] [address] [place] [address], [place] [address] Nov, [facility] [address] [id number] [address] [place] [address], [place] [address] Nov, [facility] [address] [id number] [address] [place] [address], [place] [address] Nov, [facility] [address] [id number] [address] [place] [address], [place] [address] Oct, [facility] [address] [id number] [address] [place] [address], [place] [address] Oct, [facility] [address] [id number] [address] [place] [address], [place] [address] Oct, [facility] [address] [id number] [address] [place] [address], [place] [address] Oct, [facility] [address] [id number] [address] [place] [address], [place] [address] Sep, [facility] [address] [id number] [address] [place] [address], [place] [address] Sep, [facility] [address] [id number] [address] [place] [address], [place] [address] Sep, [facility] [address] [id number] [address] [place] [address], [place] [address] Sep, [facility] [address] [id number] [address] [place] [address], [place] [address] Aug, [facility] [address] [id number] [address] [place] [address], [place] [address] 24 Jul, 2012 [facility] [address] [id number] [address] [place] [address], [place] [address] Jul, [facility] [address] [id number] [address] [place] [address], [place] [address] Jul, [facility] [address] [id number] [address] [place] [address], [place] [address] Jun, [facility] [address] [id number] [address] [place] [address], [place] [address] Jun, [facility] [address] [id number] [address] [place] [address], [place] [address] Jun, [facility] [address] [id number] [address] [place] [address], [place] [address] May, [facility] [address] [id number] [address] [place] [address], [place] [address] 05 May, 2012 [facility] [address] [id number] [address] [place] [address], [place] [address] 19 Apr, 2012 [facility] [address] [id number] [address] [place] [address], [place] [address] 15 Apr, 2012 [facility] [address] [id number] [address] [place] [address], [place] [address] Apr, [facility] [address] [id number] [address] [place] [address], [place] [address] Apr, [facility] [address] [id number] [address] [place] [address], [place] [address] March, [facility] [address] [id number] [address] [place] [address], [place] [address] March, [facility] [address] [id number] [address] [place] [address], [place] [address] March, [facility] [address] [id number] [address] [place] [address], [place] [address] Jan, [facility] [address] [id number] [address] [place] [address], [place] [address] Jan, [facility] [address] [id number] [address] [place] [address], [place] [address] Jan, [facility] [address] [id number] [address] [place] [address], [place] [address] 16 Nov, 2011 [facility] [address] [id number] [address] [place] [address], [place] [address] Nov, [facility] [address] [id number] [address] [place] [address], [place] [address] 04 Nov, 2011 [facility] [address] [id number] [address] [place] [address], [place] [address] Nov, [facility] [address] [id number] [address] [place] [address], [place] [address] Oct, [facility] [address] [facility] [id number] [address] [place] [address] Oct, [facility] [facility] [address] [id number] [address] [place] [phone] Oct, [facility] [place] [address] [id number] [address] [place] [phone] Oct, [facility] [place] [address] [id number] [address] [place] [phone] Oct, [facility] [place] [address] [id number] [address] [place] [phone] Oct, [facility] [place] [address] [id number] [address] [place] [phone] Oct, IMMUNIZATIONS No Known Immunizations SOCIAL HISTORY Never Assessed REASON FOR VISIT EMR-[facility] PLAN OF CARE VITAL SIGNS MEDICATIONS Unknown [...]
--- OUTSIDE RECORDS SUMMARY | 2020-04-18 19:37 | XMS REPORT ---
Author Author Carroll Cannon Doctor Organization 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 81 Active [id number] ALLERGIES No Information ENCOUNTERS Encounter Location Date Diagnosis [place] [id number] [place] [id number] [place] [phone] March, [place] [address] [address] Feb, [place] [address] [place] [id number] [place] [phone] Aug, Anxiety F41.9 [place] [address] [place] [id number] [place] [address] Aug, Medicare annual wellness vis it, initial Z00.00 ; Encounter for immunization Z23 ; Coronary disease I25.10 ; Type 2 diabetes mellitus with diabetic nephropathy E11.21 ; Chronic kidney disease, stage IV (severe) N18.4 ; Secondary hyperparathyroidism of renal origin N25.81 ; Anxiety F41.9 and Gastroesophageal reflux disease, esophagitis presence not specified K21.9 [place] [address] [place] [id number] [place] [address] Jul, Friction blister of right lo wer extremity, initial encounter S80.821A [facility] [address] [place] [id number] [address] [place] [phone] Jul, Localized edema R60.0 ; Type 2 diabetes mellitus with diabetic nephropathy E11.21 ; Coronary disease I25.10 and Anxiety F41.9 [facility] [address] [address] Jun, [place] [address] [address] March, Type 2 diabetes mellitus wit h diabetic nephropathy E11.21 ; 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.4 ; Chronic kidney disease, stage IV (severe) N18.4 ; Secondary hyperparathyroidism of renal origin N25.81 ; Coronary disease I25.10 and Gastroesophageal reflux disease, esophagitis presence not specified K21.9 [place] [address] [address] Nov, Type 2 diabetes mellitus wit hout complications E11.9 ; Coronary disease I25.10 and Essential hypertension I10 [place] [address] [address] May, Diabetes E11.9 [place] [address] [place] [id number] [place] [address] Apr, Type 2 diabetes mellitus wit hout complications E11.9 and Arthritis M19.90 [place] [address] [place] [id number] [address] [place] [phone] March, Diabetes E11.9 [place] [address] [place] [id number] [address] [place] [address] March, Diabetes E11.9 [place] [address] [place] [id number] [address] [place] [phone] March, [place] [address] [place] [id number] [address] [place] [address] Feb, Diabetes E11.9 [place] [address] [place] [id number] [place] [phone] Feb, Diabetes E11.9 [facility] [address] [id number] [address] [place] [phone] Jan, [facility] [address] [id number] [address] [place] [phone] Jan, Diabetes E11.9 [facility] [address] [id number] [address] [place] [phone] Jan, Type 2 diabetes mellitus wit hout complications E11.9 [facility] [address] [id number] [address] [place] [phone] Oct, [facility] [address] [id number] [address] [place] [phone] Oct, Gastroesophageal reflux dise ase, esophagitis presence not specified K21.9 [facility] [address] [id number] [address] [place] [phone] Sep, [facility] [address] [id number] [address] [place] [phone] Sep, [facility] [address] [id number] [address] [place] [phone] Sep, [facility] [address] [id number] [address] [place] [phone] Aug, [facility] [address] [id number] [address] [place] [address] Aug, Diabetes E11.9 and Encounter for immunization Z23 [facility] [address] [id number] [address] [place] [phone] Aug, [facility] [address] [id number] [address] [place] [phone] 08 Jul, 2016 [facility] [address] [id number] [address] [place] [phone] Jun, [facility] [address] [id number] [address] [place] [address] May, Diabetes E11.9 [facility] [address] [id number] [address] [place] [address], [place] [address] Apr, [facility] [address] [id number] [address] [place] [phone] Apr, [facility] [address] [id number] [address] [place] [phone] March, [facility] [address] [id number] [address] [place] [phone] March, [facility] [address] [id number] [address] [place] [phone] Feb, [facility] [address] [id number] [address] [place] [phone] Feb, [facility] [address] [id number] [address] [place] [phone] Feb, [facility] [address] [id number] [address] [place] [phone] Feb, [facility] [address] [id number] [address] [place] [phone] Feb, [facility] [address] [id number] [address] [place] [phone] Feb, Type 2 diabetes mellitus wit hout complications E11.9 [facility] [address] [id number] [address] [place] [phone] Feb, [facility] [address] [id number] [address] [place] [phone] Jan, [facility] [address] [id number] [address] [place] [address] Dec, Eustachian tube dysfunction H69.80 and Diabetes E11.9 [facility] [address] [id number] [address] [place] [phone] Dec, [facility] [address] [facility] [id number] [address] [place] [phone] Dec, [facility] [address] [place] [id number] [place] [address] Dec, Type 2 diabetes mellitus wit hout complications E11.9 ; Atherosclerotic heart disease of [place] coronary artery without angina pectoris I25.10 and Diabetes E11.9 [facility] [address] [place] [id number] [address] [place] [address] Dec, [facility] [address] [place] [id number] [place] [address] Dec, CHF (congestive heart failur e) I50.9 [place] [address] [address] Nov, Diabetes E11.9 and Coronary disease I25.10 [place] [address] [address] Oct, [facility] [address] [address] Aug, [place] [address] [address] Jul, [facility] [address] [address] Jul, DM w/o complication type II 250.00 and Spontaneous bleeding of digits 459.0 [facility] [address] [place] [id number] [address] [place] [address] Apr, [facility] [address] [place] [id number] [place] [address] Apr, [place] [address] [address] March, CHF (congestive heart failur e) 428.0 and Coronary atherosclerosis of unspecified type of vessel, [place] or graft 414.00 [place] [address] [address] March, [facility] [address] [id number] [address] [place] [address], [place] [address] 14 Feb, 2015 [facility] [address] [id number] [address] [place] [address], [place] [address] Feb, [facility] [address] [id number] [address] [place] [address], [place] [address] Jan, [facility] [address] [id number] [address] [place] [address], [place] [address] Jan, [facility] [address] [id number] [address] [place] [address], [place] [address] Dec, [facility] [address] [id number] [address] [place] [address], [place] [address] Dec, [facility] [address] [id number] [address] [place] [address], [place] [address] Dec, [facility] [address] [id number] [address] [place] [address], [place] [id number] 17 Dec, 2014 [facility] [address] [id number] [address] [place] [address], [place] [address] 16 Dec, 2014 [facility] [address] [id number] [address] [place] [address], [place] [id number] 16 Dec, 2014 [facility] [address] [id number] [address] [place] [address], [place] [address] Nov, [facility] [address] [id number] [address] [place] [address], [place] [address] Nov, [facility] [address] [id number] [address] [place] [address], [place] [address] Oct, [facility] [address] [id number] [address] [place] [address], [place] [id number] Sep, [facility] [address] [id number] [address] [place] [address], [place] [address] Sep, [facility] [address] [id number] [address] [place] [address], [place] [address] Sep, [facility] [address] [id number] [address] [place] [address], [place] [address] Sep, [facility] [address] [id number] [address] [place] [address], [place] [address] Jul, [facility] [address] [id number] [address] [place] [address], [place] [address] Jul, [facility] [address] [id number] [address] [place] [address], [place] [address] Jul, [facility] [address] [id number] [address] [place] [address], [place] [address] Jul, [facility] [address] [id number] [address] [place] [address], [place] [address] Jun, [facility] [address] [id number] [address] [place] [address], [place] [address] Jun, [facility] [address] [id number] [address] [place] [address], [place] [address] Jun, [facility] [address] [id number] [address] [place] [address], [place] [address] Jun, [facility] [address] [id number] [address] [place] [address], [place] [address] Apr, [facility] [address] [id number] [address] [place] [address], [place] [address] Apr, [facility] [address] [id number] [address] [place] [address], [place] [address] Apr, [facility] [address] [id number] [address] [place] [address], [place] [address] Apr, [facility] [address] [id number] [address] [place] [address], [place] [address] Dec, [facility] [address] [id number] [address] [place] [address], [place] [address] Dec, [facility] [address] [id number] [address] [place] [address], [place] [address] Dec, [facility] [address] [id number] [address] [place] [address], [place] [address] Dec, [facility] [address] [id number] [address] [place] [address], [place] [address] Dec, [facility] [address] [id number] [address] [place] [address], [place] [address] Dec, [facility] [address] [id number] [address] [place] [address], [place] [address] Nov, [facility] [address] [id number] [address] [place] [address], [place] [address] Nov, [facility] [address] [id number] [address] [place] [address], [place] [address] Sep, [facility] [address] [id number] [address] [place] [address], [place] [address] Sep, [facility] [address] [id number] [address] [place] [address], [place] [id number] Sep, [facility] [address] [id number] [address] [place] [address], [place] [address] Sep, [facility] [address] [id number] [address] [place] [address], [place] [address] Sep, [facility] [address] [id number] [address] [place] [phone] Aug, [facility] [address] [id number] [address] [place] [address], [place] [address] Aug, [facility] [address] [id number] [address] [place] [address], [place] [address] Aug, [facility] [address] [id number] [address] [place] [phone] Aug, [facility] [address] [id number] [address] [place] [address], [place] [address] Jul, [facility] [address] [id number] [address] [place] [address], [place] [address] Jun, [facility] [address] [id number] [address] [place] [address], [place] [address] May, [facility] [address] [id number] [address] [place] [address], [place] [address] May, [facility] [address] [id number] [address] [place] [address], [place] [address] May, [facility] [address] [id number] [address] [place] [address], [place] [address] Apr, [facility] [address] [id number] [address] [place] [address], [place] [address] Apr, [facility] [address] [id number] [address] [place] [address], [place] [address] March, [facility] [address] [id number] [address] [place] [address], [place] [address] March, [facility] [address] [id number] [address] [place] [address], [place] [address] Feb, [facility] [address] [id number] [address] [place] [address], [place] [address] 15 Feb, 2013 [facility] [address] [id number] [address] [place] [address], [place] [address] 10 Feb, 2013 [facility] [address] [id number] [address] [place] [address], [place] [address] 21 Jan, 2013 [facility] [address] [id number] [address] [place] [address], [place] [address] 18 Jan, 2013 [facility] [address] [id number] [address] [place] [address], [place] [address] 07 Jan, 2013 [facility] [address] [id number] [address] [place] [address], [place] [address] Dec, [facility] [address] [id number] [address] [place] [address], [place] [address] Dec, [facility] [address] [id number] [address] [place] [address], [place] [address] Dec, [facility] [address] [id number] [address] [place] [address], [place] [address] Nov, [facility] [address] [id number] [address] [place] [address], [place] [address] Nov, [facility] [address] [id number] [address] [place] [address], [place] [address] Nov, [facility] [address] [id number] [address] [place] [address], [place] [address] Nov, [facility] [address] [id number] [address] [place] [address], [place] [address] Nov, [facility] [address] [id number] [address] [place] [address], [place] [address] Nov, [facility] [address] [id number] [address] [place] [address], [place] [address] Oct, [facility] [address] [id number] [address] [place] [address], [place] [address] Oct, [facility] [address] [id number] [address] [place] [address], [place] [address] Oct, [facility] [address] [id number] [address] [place] [address], [place] [address] Oct, [facility] [address] [id number] [address] [place] [address], [place] [address] Sep, [facility] [address] [id number] [address] [place] [address], [place] [address] Sep, [facility] [address] [id number] [address] [place] [address], [place] [address] Sep, [facility] [address] [id number] [address] [place] [address], [place] [address] Sep, [facility] [address] [id number] [address] [place] [address], [place] [address] Aug, [facility] [address] [id number] [address] [place] [address], [place] [address] Jul, [facility] [address] [id number] [address] [place] [address], [place] [address] Jul, [facility] [address] [id number] [address] [place] [address], [place] [address] Jul, [facility] [address] [id number] [address] [place] [address], [place] [address] Jun, [facility] [address] [id number] [address] [place] [address], [place] [address] Jun, [facility] [address] [id number] [address] [place] [address], [place] [address] Jun, [facility] [address] [id number] [address] [place] [address], [place] [address] May, [facility] [address] [id number] [address] [place] [address], [place] [address] May, [facility] [address] [id number] [address] [place] [address], [place] [address] Apr, [facility] [address] [id number] [address] [place] [address], [place] [id number] Apr, [facility] [address] [id number] [address] [place] [address], [place] [id number] Apr, [facility] [address] [id number] [address] [place] [address], [place] [address] Apr, [facility] [address] [id number] [address] [place] [address], [place] [address] March, [facility] [address] [id number] [address] [place] [address], [place] [address] March, [facility] [address] [id number] [address] [place] [phone] March, [facility] [address] [id number] [address] [place] [phone] Jan, [facility] [address] [id number] [address] [place] [phone] Jan, [facility] [address] [id number] [address] [place] [phone] Jan, [facility] [address] [id number] [address] [place] [address], [place] [id number] Nov, [facility] [address] [id number] [address] [place] [phone] Nov, [facility] [address] [id number] [address] [place] [phone] Nov, [facility] [address] [id number] [address] [place] [phone] Nov, [facility] [address] [id number] [address] [place] [phone] Oct, [facility] [address] [id number] [address] [place] [phone] Oct, [facility] [address] [id number] [address] [place] [phone] Oct, [facility] [address] [id number] [address] [place] [phone] Oct, [facility] [address] [id number] [address] [place] [phone] Oct, [facility] [address] [id number] [address] [place] [phone] Oct, [facility] [address] [id number] [address] [place] [id number] Oct, IMMUNIZATIONS No Known Immunizations SOCIAL HISTORY Never Assessed REASON FOR VISIT EMR-[facility] [place] PLAN OF CARE VITAL SIGNS MEDICATIONS Unknown [...]
--- OUTSIDE RECORDS SUMMARY | 2020-04-18 19:38 | XMS REPORT ---
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 81 Active 90621408 ALLERGIES No Information ENCOUNTERS Encounter Location Date Diagnosis [place] [address] [place] [id number] [place] [phone] Feb, [place] [address] [place] [id number] [address] [place] [address] Aug, Anxiety F41.9 [place] [address] [place] [id number] [address] [place] [phone] Aug, Medicare annual wellness vis it, initial Z00.00 ; Encounter for immunization Z23 ; Coronary disease I25.10 ; Type 2 diabetes mellitus with diabetic nephropathy E11.21 ; Chronic kidney disease, stage IV (severe) N18.4 ; Secondary hyperparathyroidism of renal origin N25.81 ; Anxiety F41.9 and Gastroesophageal reflux disease, esophagitis presence not specified K21.9 [facility] [address] [facility] [id number] [address] [place] [address] Jul, Friction blister of right lo wer extremity, initial encounter S80.821A [place] [address] [address] Jul, Localized edema R60.0 ; Type 2 diabetes mellitus with diabetic nephropathy E11.21 ; Coronary disease I25.10 and Anxiety F41.9 [facility] [address] [address] Jun, [facility] [address] [address] March, Type 2 diabetes mellitus wit h diabetic nephropathy E11.21 ; 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 ; Chronic kidney disease, stage IV (severe) N18.4 ; Secondary hyperparathyroidism of renal origin N25.81 ; Coronary disease I25.10 and Gastroesophageal reflux disease, esophagitis presence not specified K21.9 [facility] [address] [address] Nov, Type 2 diabetes mellitus wit hout complications E11.9 ; Coronary disease I25.10 and Essential hypertension I10 [place] [address] [address] May, Diabetes E11.9 [place] [address] [address] Apr, Type 2 diabetes mellitus wit hout complications E11.9 and Arthritis M19.90 [place] [address] [address] March, Diabetes E11.9 [place] [address] [address] March, Diabetes E11.9 [facility] [address] [place] [id number] [place] [id number] March, [place] [address] [address] Feb, Diabetes E11.9 [place] [address] [address] Feb, Diabetes E11.9 [place] [address] [id number] [address] [place] [phone] Jan, [facility] [address] [id number] [address] [place] [address] Jan, Diabetes E11.9 [facility] [address] [id number] [address] [place] [address] Jan, Type 2 diabetes mellitus wit hout complications E11.9 [facility] [address] [id number] [address] [place] [address] Oct, [facility] [address] [id number] [address] [place] [address] Oct, Gastroesophageal reflux dise ase, esophagitis presence not specified K21.9 [facility] [address] [id number] [address] [place] [address] Sep, [facility] [address] [id number] [address] [place] [address] Sep, [facility] [address] [id number] [address] [place] [address] Sep, [facility] [address] [id number] [address] [place] [id number] Aug, [facility] [address] [id number] [address] [place] [phone] Aug, Diabetes E11.9 and Encounter for immunization Z23 [facility] [address] [id number] [address] [place] [phone] Aug, [facility] [address] [id number] [address] [place] [address] Jul, [facility] [address] [id number] [address] [place] [id number] Jun, [facility] [address] [id number] [address] [place] [phone] May, Diabetes E11.9 [facility] [address] [id number] [address] [place] [address] Apr, [facility] [address] [id number] [address] [place] [id number] Apr, [facility] [address] [id number] [address] [place] [phone] March, [facility] [address] [id number] [address] [place] [id number] March, [facility] [address] [id number] [address] [place] [phone] Feb, [facility] [address] [id number] [address] [place] [id number] Feb, [facility] [address] [id number] [address] [place] [address] Feb, [facility] [address] [id number] [address] [place] [address] Feb, [facility] [address] [id number] [address] [place] [phone] Feb, [facility] [address] [id number] [address] [place] [address] Feb, Type 2 diabetes mellitus wit hout complications E11.9 [facility] [address] [id number] [address] [place] [id number] Feb, [facility] [address] [id number] [address] [place] [address] Jan, [facility] [address] [id number] [address] [place] [address] Dec, Eustachian tube dysfunction H69.80 and Diabetes E11.9 [facility] [address] [id number] [address] [place] [id number] Dec, [facility] [address] [id number] [address] [place] [phone] Dec, [facility] [address] [id number] [address] [place] [id number] 10 Dec, 2015 Type 2 diabetes mellitus wit hout complications E11.9 ; Atherosclerotic heart disease of bent[place] coronary artery without angina pectoris I25.10 and Diabetes E11.9 [facility] [address] [id number] [address] [place] [id number] 09 Dec, 2015 [facility] [address] [facility] [id number] [address] [place] [id number] 05 Dec, 2015 CHF (congestive heart failur e) I50.9 [facility] [address] [id number] [address] [place] [phone] Nov, Diabetes E11.9 and Coronary disease I25.10 [facility] [address] [facility] [id number] [address] [place] [id number] Oct, [facility] [address] [facility] [id number] [address] [place] [phone] Aug, [facility] [address] [id number] [address] [place] [id number] Jul, [facility] [address] [facility] [id number] [address] [place] [phone] Jul, DM w/o complication type II 250.00 and Spontaneous bleeding of digits 459.0 [facility] [address] [id number] [address] [place] [id number] Apr, [facility] [address] [facility] [id number] [address] [place] [id number] Apr, [facility] [address] [facility] [id number] [address] [place] [address] March, CHF (congestive heart failur e) 428.0 and Coronary atherosclerosis of unspecified type of vessel, benton or graft 414.00 [facility] [address] [facility] [id number] [address] [place] [id number] March, [facility] [address] [facility] [id number] [address] [place] [id number] 14 Feb, 2015 [facility] [address] [id number] [address] [place] [address], [place] [address] Feb, [facility] [address] [id number] [address] [place] [address], [place] [address] Jan, [facility] [address] [id number] [address] [place] [address], [place] [address] Jan, [facility] [address] [id number] [address] [place] [address], [place] [address] Dec, [facility] [address] [id number] [address] [place] [address], [place] [address] Dec, [facility] [address] [id number] [address] [place] [address], [place] [address] Dec, [facility] [address] [id number] [address] [place] [address], [place] [address] Dec, [facility] [address] [id number] [address] [place] [address], [place] [address] Dec, [facility] [address] [id number] [address] [place] [address], [place] [address] Dec, [facility] [address] [id number] [address] [place] [address], [place] [address] Nov, [facility] [address] [id number] [address] [place] [address], [place] [address] Nov, [facility] [address] [id number] [address] [place] [address], [place] [address] 18 Oct, 2014 [facility] [address] [id number] [address] [place] [address], [place] [address] Sep, [facility] [address] [id number] [address] [place] [address], [place] [address] Sep, [facility] [address] [id number] [address] [place] [address], [place] [address] Sep, [facility] [address] [id number] [address] [place] [address], [place] [address] Sep, [facility] [address] [id number] [address] [place] [address], [place] [address] Jul, [facility] [address] [id number] [address] [place] [address], [place] [address] Jul, [facility] [address] [id number] [address] [place] [address], [place] [address] Jul, [facility] [address] [id number] [address] [place] [address], [place] [address] Jul, [facility] [address] [id number] [address] [place] [address], [place] [address] Jun, [facility] [address] [id number] [address] [place] [address], [place] [address] Jun, [facility] [address] [id number] [address] [place] [address], [place] [address] Jun, [facility] [address] [id number] [address] [place] [address], [place] [address] Jun, [facility] [address] [id number] [address] [place] [address], [place] [address] Apr, [facility] [address] [id number] [address] [place] [address], [place] [address] Apr, [facility] [address] [id number] [address] [place] [address], [place] [address] Apr, [facility] [address] [id number] [address] [place] [address], [place] [address] Apr, [facility] [address] [id number] [address] [place] [address], [place] [address] Dec, [facility] [address] [id number] [address] [place] [address], [place] [address] Dec, [facility] [address] [id number] [address] [place] [address], [place] [address] Dec, [facility] [address] [id number] [address] [place] [address], [place] [address] Dec, [facility] [address] [id number] [address] [place] [address], [place] [address] Dec, [facility] [address] [id number] [address] [place] [address], [place] [address] Dec, [facility] [address] [id number] [address] [place] [address], [place] [address] Nov, [facility] [address] [id number] [address] [place] [address], [place] [address] Nov, [facility] [address] [id number] [address] [place] [address], [place] [address] Sep, [facility] [address] [id number] [address] [place] [address], [place] [address] Sep, [facility] [address] [id number] [address] [place] [address], [place] [address] Sep, [facility] [address] [id number] [address] [place] [address], [place] [address] Sep, [facility] [address] [id number] [address] [place] [address], [place] [address] Sep, [facility] [address] [id number] [address] [place] [address], [place] [address] Aug, [facility] [address] [id number] [address] [place] [address], [place] [address] Aug, [facility] [address] [id number] [address] [place] [address], [place] [address] Aug, [facility] [address] [id number] [address] [place] [address], [place] [address] Aug, [facility] [address] [id number] [address] [place] [address] Jul, [facility] [address] [id number] [address] [place] [address], [place] [address] Jun, [facility] [address] [id number] [address] [place] [address], [place] [address] May, [facility] [address] [id number] [address] [place] [address], [place] [address] May, [facility] [address] [id number] [address] [place] [address], [place] [address] May, [facility] [address] [id number] [address] [place] [address], [place] [address] Apr, [facility] [address] [id number] [address] [place] [address], [place] [address] Apr, [facility] [address] [id number] [address] [place] [address], [place] [address] March, [facility] [address] [id number] [address] [place] [address], [place] [address] March, [facility] [address] [id number] [address] [place] [address], [place] [address] Feb, [facility] [address] [id number] [address] [place] [address], [place] [address] Feb, [facility] [address] [id number] [address] [place] [address], [place] [address] Feb, [facility] [address] [id number] [address] [place] [address], [place] [address] Jan, [facility] [address] [id number] [address] [place] [address], [place] [address] Jan, [facility] [address] [id number] [address] [place] [address], [place] [address] Jan, [facility] [address] [id number] [address] [place] [address], [place] [address] Dec, [facility] [address] [id number] [address] [place] [address], [place] [address] Dec, [facility] [address] [id number] [address] [place] [address], [place] [address] Dec, [facility] [address] [id number] [address] [place] [address], [place] [address] Nov, [facility] [address] [id number] [address] [place] [address], [place] [address] Nov, [facility] [address] [id number] [address] [place] [address], [place] [address] Nov, [facility] [address] [id number] [address] [place] [address], [place] [address] Nov, [facility] [address] [id number] [address] [place] [address], [place] [address] Nov, [facility] [address] [id number] [address] [place] [address], [place] [address] Nov, [facility] [address] [id number] [address] [place] [address], [place] [address] Oct, [facility] [address] [id number] [address] [place] [address], [place] [address] Oct, [facility] [address] [id number] [address] [place] [address], [place] [address] Oct, [facility] [address] [id number] [address] [place] [address], [place] [address] Oct, [facility] [address] [id number] [address] [place] [address], [place] [address] Sep, [facility] [address] [id number] [address] [place] [address], [place] [address] Sep, [facility] [address] [id number] [address] [place] [address], [place] [address] Sep, [facility] [address] [id number] [address] [place] [address], [place] [address] Sep, [facility] [address] [id number] [address] [place] [address], [place] [address] Aug, [facility] [address] [id number] [address] [place] [address], [place] [address] 24 Jul, 2012 [facility] [address] [id number] [address] [place] [address], [place] [address] Jul, [facility] [address] [id number] [address] [place] [address], [place] [address] Jul, [facility] [address] [id number] [address] [place] [address], [place] [address] Jun, [facility] [address] [id number] [address] [place] [address], [place] [address] Jun, [facility] [address] [id number] [address] [place] [address], [place] [address] Jun, [facility] [address] [id number] [address] [place] [address], [place] [address] May, [facility] [address] [id number] [address] [place] [address], [place] [address] May, [facility] [address] [id number] [address] [place] [address], [place] [address] Apr, [facility] [address] [id number] [address] [place] [address], [place] [id number] Apr, [facility] [address] [id number] [address] [place] [address], [place] [address] Apr, [facility] [address] [id number] [address] [place] [address], [place] [address] Apr, [facility] [address] [id number] [address] [place] [address], [place] [address] March, [facility] [address] [id number] [address] [place] [address], [place] [address] March, [facility] [address] [id number] [address] [place] [address], [place] [address] March, [facility] [address] [id number] [address] [place] [phone] Jan, [facility] [address] [id number] [address] [place] [phone] 22 Jan, 2012 [facility] [address] [id number] [address] [place] [id number] 13 Jan, 2012 [facility] [address] [id number] [address] [place] [phone] 16 Nov, 2011 [facility] [address] [id number] [address] [place] [phone] Nov, [facility] [address] [id number] [address] [place] [id number] Nov, [facility] [address] [id number] [address] [place] [id number] Nov, [facility] [address] [id number] [address] [place] [id number] Oct, [facility] [address] [id number] [address] [place] [phone] Oct, [facility] [address] [id number] [address] [place] [phone] Oct, [facility] [address] [id number] [address] [place] [phone] Oct, [facility] [address] [id number] [address] [place] [phone] Oct, [facility] [address] [id number] [address] [place] [id number] Oct, [facility] [address] [id number] [address] [place] [id number] Oct, IMMUNIZATIONS No Known Immunizations SOCIAL HISTORY Never Assessed REASON FOR VISIT EMR-[facility] PLAN OF CARE VITAL SIGNS MEDICATIONS Medication Instructions Dosage Frequency Start Date End Date Duration S tatus Potassium Chloride 10 mEq 1 Tablet by Oral route 1 berna e per day Dec, Active Furosemide 40 mg take 1 tablet (40 mg) by oral route o nce daily Dec, Active ProAir HFA 90 mcg/actuation [address]halation rout e every 4 hours PRN Jan, Active Symbicort 160-4.5 mcg/actuation inhale 2 puffs by inhalation route 2 times per day in the morning and evening Dec, Active Diclofenac Sodium 75 mg take 1 tablet (7 5 mg) by oral route 2 times per day PRN Dec, Active Qvar 40 mcg/actuation 2 Puffs by Inhalation route 2 ti mes per day Jan, Active PredniSONE 20 mg 1 tablet by Oral route 2 times per da y for 5 day(s) p c March, Active Levemir Flexpen 100 unit/mL (3 mL) 20 Un its by Subcutaneous route 1 time per day at bedtime Jul, Active Ceftin 500 mg 1 tablet by Oral route 2 times per day f or 6 day(s) March, Active RESULTS No Results PROCEDURES No Known procedures [...]
--- OUTSIDE RECORDS SUMMARY | 2020-04-18 19:38 | XMS REPORT ---
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 81 Active [id number] ALLERGIES No Information ENCOUNTERS Encounter Location Date Diagnosis [id number] [id number] [address] [place] [id number] March, [place] [address] [address] Feb, [place] [address] [place] [id number] [address] [place] [address] Aug, Anxiety F41.9 [place] [address] [place] [id number] [address] [place] [phone] Aug, Medicare annual wellness vis it, initial Z00.00 ; Encounter for immunization Z23 ; Coronary disease I25.10 ; Type 2 diabetes mellitus with diabetic nephropathy E11.21 ; Chronic kidney disease, stage IV (severe) N18.4 ; Secondary hyperparathyroidism of renal origin N25.81 ; Anxiety F41.9 and Gastroesophageal reflux disease, esophagitis presence not specified K21.9 [place] [address] [place] [id number] [address] [place] [address] Jul, Friction blister of right lo wer extremity, initial encounter S80.821A [facility] [address] [place] [id number] [address] [place] [address] Jul, Localized edema R60.0 ; Type 2 diabetes mellitus with diabetic nephropathy E11.21 ; Coronary disease I25.10 and Anxiety F41.9 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.4 ; Chronic kidney disease, stage IV (severe) N18.4 ; Secondary hyperparathyroidism of renal origin N25.81 ; Coronary disease I25.10 and Gastroesophageal reflux disease, esophagitis presence not specified K21.9 [place] [address] [id number] Nov, Type 2 diabetes mellitus wit hout complications E11.9 ; Coronary disease I25.10 and Essential hypertension I10 [place] [address] [address] May, Diabetes E11.9 [place] [address] [place] [id number] [place] [id number] Apr, Type 2 diabetes mellitus wit hout complications E11.9 and Arthritis M19.90 [place] [address] [place] [id number] [address] [place] [address] March, Diabetes E11.9 [place] [address] [place] [id number] [address] [place] [address] March, Diabetes E11.9 [place] [address] [place] [id number] [address] [place] [address] March, [place] [address] [place] [id number] [address] [place] [address] Feb, Diabetes E11.9 [place] [address] [place] [id number] [address] [place] [address] Feb, Diabetes E11.9 [facility] [address] [id number] [address] [place] [phone] Jan, [facility] [address] [id number] [address] [place] [address] Jan, Diabetes E11.9 [facility] [address] [id number] [address] [place] [address] Jan, Type 2 diabetes mellitus wit hout complications E11.9 [facility] [address] [id number] [address] [place] [phone] Oct, [facility] [address] [id number] [address] [place] [phone] Oct, Gastroesophageal reflux dise ase, esophagitis presence not specified K21.9 [facility] [address] [id number] [address] [place] [phone] Sep, [facility] [address] [id number] [address] [place] [phone] Sep, [facility] [address] [id number] [address] [place] [address] Sep, [facility] [address] [id number] [address] [place] [phone] Aug, [facility] [address] [id number] [address] [place] [id number] Aug, Diabetes E11.9 and Encounter for immunization Z23 [facility] [address] [id number] [address] [place] [phone] Aug, [facility] [address] [id number] [address] [place] [id number] 08 Jul, 2016 [facility] [address] [id number] [address] [place] [address] Jun, [facility] [address] [id number] [address] [place] [address] May, Diabetes E11.9 [facility] [address] [id number] [address] [place] [address], [place] [address] Apr, [facility] [address] [id number] [address] [place] [phone] Apr, [facility] [address] [id number] [address] [place] [address] March, [facility] [address] [id number] [address] [place] [address] March, [facility] [address] [id number] [address] [place] [address] Feb, [facility] [address] [id number] [address] [place] [address] Feb, [facility] [address] [id number] [address] [place] [address] Feb, [facility] [address] [id number] [address] [place] [address] Feb, [facility] [address] [id number] [address] [place] [address] Feb, [facility] [address] [id number] [address] [place] [address] Feb, Type 2 diabetes mellitus wit hout complications E11.9 [facility] [address] [id number] [address] [place] [address] Feb, [facility] [address] [id number] [address] [place] [address] Jan, [facility] [address] [id number] [address] [place] [address] Dec, Eustachian tube dysfunction H69.80 and Diabetes E11.9 [facility] [address] [id number] [address] [place] [address] Dec, [facility] [address] [facility] [id number] [address] [place] [phone] Dec, [facility] [address] [place] [id number] [place] [address] Dec, Type 2 diabetes mellitus wit hout complications E11.9 ; Atherosclerotic heart disease of [place] coronary artery without angina pectoris I25.10 and Diabetes E11.9 [facility] [address] [place] [id number] [address] [place] [address] Dec, [facility] [address] [place] [id number] [place] [address] Dec, CHF (congestive heart failur e) I50.9 [place] [address] [address] Nov, Diabetes E11.9 and Coronary disease I25.10 [place] [address] [id number] Oct, [facility] [address] [address] Aug, [place] [address] [address] Jul, [facility] [address] [address] Jul, DM w/o complication type II 250.00 and Spontaneous bleeding of digits 459.0 [facility] [address] [place] [id number] [address] [place] [address] Apr, [facility] [address] [place] [id number] [place] [address] Apr, [place] [address] [address] March, CHF (congestive heart failur e) 428.0 and Coronary atherosclerosis of unspecified type of vessel, [place] or graft 414.00 [place] [address] [address] March, [facility] [address] [id number] [address] [place] [address], [place] [address] 14 Feb, 2015 [facility] [address] [id number] [address] [place] [address], [place] [address] Feb, [facility] [address] [id number] [address] [place] [address], [place] [address] Jan, [facility] [address] [id number] [address] [place] [address], [place] [address] Jan, [facility] [address] [id number] [address] [place] [address], [place] [address] Dec, [facility] [address] [id number] [address] [place] [address], [place] [address] Dec, [facility] [address] [id number] [address] [place] [address], [place] [address] Dec, [facility] [address] [id number] [address] [place] [address], [place] [address] 17 Dec, 2014 [facility] [address] [id number] [address] [place] [address], [place] [address] 16 Dec, 2014 [facility] [address] [id number] [address] [place] [address], [place] [address] 16 Dec, 2014 [facility] [address] [id number] [address] [place] [address], [place] [address] Nov, [facility] [address] [id number] [address] [place] [address], [place] [address] Nov, [facility] [address] [id number] [address] [place] [address], [place] [address] Oct, [facility] [address] [id number] [address] [place] [address], [place] [address] Sep, [facility] [address] [id number] [address] [place] [address], [place] [address] Sep, [facility] [address] [id number] [address] [place] [address], [place] [address] Sep, [facility] [address] [id number] [address] [place] [address], [place] [address] Sep, [facility] [address] [id number] [address] [place] [address], [place] [address] Jul, [facility] [address] [id number] [address] [place] [address], [place] [address] Jul, [facility] [address] [id number] [address] [place] [address], [place] [address] Jul, [facility] [address] [id number] [address] [place] [address], [place] [address] Jul, [facility] [address] [id number] [address] [place] [address], [place] [address] Jun, [facility] [address] [id number] [address] [place] [address], [place] [address] Jun, [facility] [address] [id number] [address] [place] [address], [place] [address] Jun, [facility] [address] [id number] [address] [place] [address], [place] [address] Jun, [facility] [address] [id number] [address] [place] [address], [place] [address] Apr, [facility] [address] [id number] [address] [place] [address], [place] [address] Apr, [facility] [address] [id number] [address] [place] [address], [place] [address] Apr, [facility] [address] [id number] [address] [place] [address], [place] [address] Apr, [facility] [address] [id number] [address] [place] [address], [place] [address] Dec, [facility] [address] [id number] [address] [place] [address], [place] [address] Dec, [facility] [address] [id number] [address] [place] [address], [place] [address] Dec, [facility] [address] [id number] [address] [place] [address], [place] [address] Dec, [facility] [address] [id number] [address] [place] [address], [place] [address] Dec, [facility] [address] [id number] [address] [place] [address], [place] [address] Dec, [facility] [address] [id number] [address] [place] [address], [place] [address] Nov, [facility] [address] [id number] [address] [place] [address], [place] [address] Nov, [facility] [address] [id number] [address] [place] [address], [place] [address] Sep, [facility] [address] [id number] [address] [place] [address], [place] [address] Sep, [facility] [address] [id number] [address] [place] [address], [place] [address] Sep, [facility] [address] [id number] [address] [place] [address], [place] [address] Sep, [facility] [address] [id number] [address] [place] [address], [place] [address] Sep, [facility] [address] [id number] [address] [place] [id number] Aug, [facility] [address] [id number] [address] [place] [address], [place] [address] Aug, [facility] [address] [id number] [address] [place] [address], [place] [address] Aug, [facility] [address] [id number] [address] [place] [address] Aug, [facility] [place] [address] [id number] [address] [place] [address], [place] [address] Jul, [facility] [address] [id number] [address] [place] [address], [place] [address] Jun, [facility] [address] [id number] [address] [place] [address], [place] [address] May, [facility] [address] [id number] [address] [place] [address], [place] [address] May, [facility] [address] [id number] [address] [place] [address], [place] [address] May, [facility] [address] [id number] [address] [place] [address], [place] [address] Apr, [facility] [address] [id number] [address] [place] [address], [place] [address] Apr, [facility] [place] [address] [id number] [address] [place] [address], [place] [address] March, [facility] [place] [address] [id number] [address] [place] [address], [place] [address] March, [facility] [place] [address] [id number] [address] [place] [address], [place] [address] Feb, [facility] [place] [address] [id number] [address] [place] [address], [place] [address] 15 Feb, 2013 [facility] [place] [address] [id number] [address] [place] [address], [place] [address] 10 Feb, 2013 [facility] [address] [id number] [address] [place] [address], [place] [address] 21 Jan, 2013 [facility] [address] [id number] [address] [place] [address], [place] [address] 18 Jan, 2013 [facility] [address] [id number] [address] [place] [address], [place] [address] 07 Jan, 2013 [facility] [address] [id number] [address] [place] [address], [place] [address] Dec, [facility] [address] [id number] [address] [place] [address], [place] [address] Dec, [facility] [address] [id number] [address] [place] [address], [place] [address] Dec, [facility] [address] [id number] [address] [place] [address], [place] [address] Nov, [facility] [address] [id number] [address] [place] [address], [place] [address] Nov, [facility] [address] [id number] [address] [place] [address], [place] [address] Nov, [facility] [address] [id number] [address] [place] [address], [place] [address] Nov, [facility] [place] [address] [id number] [address] [place] [address], [place] [address] Nov, [facility] [address] [id number] [address] [place] [address], [place] [address] Nov, [facility] [place] [address] [id number] [address] [place] [address], [place] [address] Oct, [facility] [place] [address] [id number] [address] [place] [address], [place] [address] Oct, [facility] [place] [address] [id number] [address] [place] [address], [place] [address] Oct, [facility] [address] [id number] [address] [place] [address], [place] [address] Oct, [facility] [address] [id number] [address] [place] [address], [place] [address] Sep, [facility] [address] [id number] [address] [place] [address], [place] [address] Sep, [facility] [address] [id number] [address] [place] [address], [place] [address] Sep, [facility] [address] [id number] [address] [place] [address], [place] [address] Sep, [facility] [address] [id number] [address] [place] [address], [place] [address] Aug, [facility] [address] [id number] [address] [place] [address], [place] [address] Jul, [facility] [address] [id number] [address] [place] [address], [place] [address] Jul, [facility] [address] [id number] [address] [place] [address], [place] [address] Jul, [facility] [address] [id number] [address] [place] [address], [place] [address] Jun, [facility] [address] [id number] [address] [place] [address], [place] [address] Jun, [facility] [address] [id number] [address] [place] [address], [place] [address] Jun, [facility] [address] [id number] [address] [place] [address], [place] [address] May, [facility] [address] [id number] [address] [place] [address], [place] [address] May, [facility] [address] [id number] [address] [place] [address], [place] [id number] Apr, [facility] [address] [id number] [address] [place] [address], [place] [address] Apr, [facility] [address] [id number] [address] [place] [address], [place] [id number] Apr, [facility] [address] [id number] [address] [place] [address], [place] [id number] Apr, [facility] [address] [id number] [address] [place] [address], [place] [id number] March, [facility] [address] [id number] [address] [place] [address], [place] [address] March, [facility] [address] [id number] [address] [place] [id number] March, [facility] [address] [id number] [address] [place] [id number] Jan, [facility] [address] [id number] [address] [place] [id number] Jan, [facility] [address] [id number] [address] [place] [id number] Jan, [facility] [address] [id number] [address] [place] [address], [place] [address] Nov, [facility] [address] [id number] [address] [place] [id number] Nov, [facility] [address] [id number] [address] [place] [phone] Nov, [facility] [address] [id number] [address] [place] [id number] Nov, [facility] [address] [id number] [address] [place] [id number] Oct, [facility] [address] [id number] [address] [place] [id number] Oct, [facility] [address] [id number] [address] [place] [id number] Oct, [facility] [address] [id number] [address] [place] [id number] Oct, [facility] [address] [id number] [address] [place] [id number] Oct, [facility] [address] [id number] [address] [place] [id number] Oct, [facility] [address] [id number] [address] [place] [id number] Oct, IMMUNIZATIONS No Known Immunizations SOCIAL HISTORY Never Assessed REASON FOR [place]ISIT [place] [place] VITAL SIGNS MEDICATIONS Unknown [...]
--- OUTSIDE RECORDS SUMMARY | 2020-04-18 19:38 | XMS REPORT ---
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 [id number] ALLERGIES No Known Allergies ENCOUNTERS Encounter Location Date Diagnosis [place] [address] [address] Aug, Anxiety F41.9 [place] [address] [address] Aug, Medicare annual wellness vis it, initial Z00.00 ; Encounter for immunization Z23 ; Coronary disease I25.10 ; Type 2 diabetes mellitus with diabetic nephropathy E11.21 ; Chronic kidney disease, stage IV (severe) N18.4 ; Secondary hyperparathyroidism of renal origin N25.81 ; Anxiety F41.9 and Gastroesophageal reflux disease, esophagitis presence not specified K21.9 [place] [address] [address] [place] [id number] [address] [place] [address] Jul, Friction blister of right lo wer extremity, initial encounter S80.821A [place] [address] [address] Jul, Localized edema R60.0 ; Type 2 diabetes mellitus with diabetic nephropathy E11.21 ; Coronary disease I25.10 and Anxiety F41.9 [facility] [address] [facility] [id number] [address] [place] [address] Jun, [facility] [address] [facility] [id number] [address] [place] [address] March, Type 2 diabetes mellitus wit h diabetic nephropathy E11.21 ; snf current use of insulin Z79.4 ; Chronic kidney disease, stage IV (severe) N18.4 ; Secondary hyperparathyroidism of renal origin N25.81 ; Coronary disease I25.10 and Gastroesophageal reflux disease, esophagitis presence not specified K21.9 [facility] [address] [facility] [id number] [address] [place] [address] Nov, Type 2 diabetes mellitus wit hout complications E11.9 ; Coronary disease I25.10 and Essential hypertension I10 [facility] [address] [facility] [id number] [address] [place] [address] May, Diabetes E11.9 [facility] [address] [facility] [id number] [address] [place] [address] Apr, Type 2 diabetes mellitus wit hout complications E11.9 and Arthritis M19.90 [facility] [address] [facility] [id number] [address] [place] [address] March, Diabetes E11.9 [facility] [address] [facility] [id number] [address] [place] [address] March, Diabetes E11.9 [facility] [address] [facility] [id number] [address] [place] [address] March, [facility] [address] [facility] [id number] [address] [place] [address] Feb, Diabetes E11.9 [facility] [address] [place] [id number] [address] [place] [address] Feb, Diabetes E11.9 [facility] [address] [place] [id number] [address] [place] [address] Jan, [facility] [address] [id number] [address] [place] [address] Jan, Diabetes E11.9 [facility] [address] [id number] [address] [place] [address] Jan, Type 2 diabetes mellitus wit hout complications E11.9 [facility] [address] [id number] [address] [place] [address] Oct, [facility] [address] [id number] [address] [place] [address] Oct, Gastroesophageal reflux dise ase, esophagitis presence not specified K21.9 [facility] [address] [id number] [address] [place] [address] Sep, [facility] [address] [id number] [address] [place] [address] Sep, [facility] [address] [id number] [address] [place] [address] Sep, [facility] [address] [id number] [address] [place] [address] Aug, [facility] [address] [id number] [address] [place] [address] Aug, Diabetes E11.9 and Encounter for immunization Z23 [facility] [address] [id number] [address] [place] [address] Aug, [facility] [address] [id number] [address] [place] [address] Jul, [facility] [address] [id number] [address] [place] [address] Jun, [facility] [address] [id number] [address] [place] [address] May, Diabetes E11.9 [facility] [address] [id number] [address] [place] [address] Apr, [facility] [address] [id number] [address] [place] [address] Apr, [facility] [address] [id number] [address] [place] [address] March, [facility] [address] [id number] [address] [place] [address] March, [facility] [address] [id number] [address] [place] [address] Feb, [facility] [address] [id number] [address] [place] [address] Feb, [facility] [address] [id number] [address] [place] [address] Feb, [facility] [address] [id number] [address] [place] [address] Feb, [facility] [address] [id number] [address] [place] [address] Feb, [facility] [address] [id number] [address] [place] [address] Feb, Type 2 diabetes mellitus wit hout complications E11.9 [facility] [address] [id number] [address] [place] [address] Feb, [facility] [address] [id number] [address] [place] [address] Jan, [facility] [address] [id number] [address] [place] [address] Dec, Eustachian tube dysfunction H69.80 and Diabetes E11.9 [facility] [address] [id number] [address] [place] [address] Dec, [facility] [address] [id number] [address] [place] [address] Dec, [facility] [address] [id number] [address] [place] [address] 10 Dec, 2015 Type 2 diabetes mellitus wit hout complications E11.9 ; Atherosclerotic heart disease of [place] coronary artery without angina pectoris I25.10 and Diabetes E11.9 [facility] [address] [facility] [id number] [address] [place] [address] Dec, [facility] [address] [place] [id number] [address] [place] [address] Dec, CHF (congestive heart failur e) I50.9 [facility] [address] [facility] [id number] [address] [place] [address] Nov, Diabetes E11.9 and Coronary disease I25.10 [facility] [address] [place] [id number] [address] [place] [address] Oct, [place] [address] [address] [place] [id number] [place] [address] Aug, [facility] [address] [facility] [id number] [address] [place] [address] Jul, [facility] [address] [address] Jul, DM w/o complication type II 250.00 and Spontaneous bleeding of digits 459.0 [facility] [address] [place] [id number] [address] [place] [address] Apr, [facility] [address] [place] [id number] [address] [place] [address] Apr, [facility] [address] [place] [id number] [address] [place] [address] March, CHF (congestive heart failur e) 428.0 and Coronary atherosclerosis of unspecified type of vessel, [place] or graft 414.00 [facility] [address] [place] [id number] [address] [place] [address] March, [facility] [address] [place] [id number] [address] [place] [address] Feb, [facility] [address] [id number] [address] [place] [address], [place] [address] Feb, [facility] [address] [id number] [address] [place] [address], [place] [address] Jan, [facility] [address] [id number] [address] [place] [address], [place] [address] Jan, [facility] [address] [id number] [address] [place] [address], [place] [address] Dec, [facility] [address] [id number] [address] [place] [address], [place] [address] Dec, [facility] [address] [id number] [address] [place] [address], [place] [address] Dec, [facility] [address] [id number] [address] [place] [address], [place] [address] Dec, [facility] [address] [id number] [address] [place] [address], [place] [address] Dec, [facility] [address] [id number] [address] [place] [address], [place] [address] Dec, [facility] [address] [id number] [address] [place] [address], [place] [address] Nov, [facility] [address] [id number] [address] [place] [address], [place] [address] Nov, [facility] [address] [id number] [address] [place] [address], [place] [address] Oct, [facility] [address] [id number] [address] [place] [address], [place] [address] Sep, [facility] [address] [id number] [address] [place] [address], [place] [address] Sep, [facility] [address] [id number] [address] [place] [address], [place] [address] Sep, [facility] [address] [id number] [address] [place] [address], [place] [address] Sep, [facility] [address] [id number] [address] [place] [address], [place] [address] Jul, [facility] [address] [id number] [address] [place] [address], [place] [address] Jul, [facility] [address] [id number] [address] [place] [address], [place] [address] Jul, [facility] [address] [id number] [address] [place] [address], [place] [address] Jul, [facility] [address] [id number] [address] [place] [address], [place] [address] Jun, [facility] [address] [id number] [address] [place] [address], [place] [address] Jun, [facility] [address] [id number] [address] [place] [address], [place] [address] Jun, [facility] [address] [id number] [address] [place] [address], [place] [address] Jun, [facility] [address] [id number] [address] [place] [address], [place] [address] Apr, [facility] [address] [id number] [address] [place] [address], [place] [address] Apr, [facility] [address] [id number] [address] [place] [address], [place] [address] Apr, [facility] [address] [id number] [address] [place] [address], [place] [address] Apr, [facility] [address] [id number] [address] [place] [address], [place] [address] Dec, [facility] [address] [id number] [address] [place] [address], [place] [address] Dec, [facility] [address] [id number] [address] [place] [address], [place] [address] Dec, [facility] [address] [id number] [address] [place] [address], [place] [address] Dec, [facility] [address] [id number] [address] [place] [address], [place] [address] Dec, [facility] [address] [id number] [address] [place] [address], [place] [address] Dec, [facility] [address] [id number] [address] [place] [address], [place] [address] Nov, [facility] [address] [id number] [address] [place] [address], [place] [address] Nov, [facility] [address] [id number] [address] [place] [address], [place] [address] Sep, [facility] [address] [id number] [address] [place] [address], [place] [address] Sep, [facility] [address] [id number] [address] [place] [address], [place] [address] Sep, [facility] [address] [id number] [address] [place] [address], [place] [address] Sep, [facility] [address] [id number] [address] [place] [address], [place] [address] Sep, [facility] [address] [id number] [address] [place] [address], [place] [address] Aug, [facility] [address] [id number] [address] [place] [address] Aug, [facility] [address] [id number] [address] [place] [address], [place] [address] Aug, [facility] [address] [id number] [address] [place] [address], [place] [address] Aug, [facility] [address] [id number] [address] [place] [address], [place] [address] Jul, [facility] [address] [id number] [address] [place] [address], [place] [address] Jun, [facility] [address] [id number] [address] [place] [address], [place] [address] May, [facility] [address] [id number] [address] [place] [address], [place] [address] May, [facility] [address] [id number] [address] [place] [address], [place] [address] May, [facility] [address] [id number] [address] [place] [address], [place] [address] Apr, [facility] [address] [id number] [address] [place] [address], [place] [address] Apr, [facility] [address] [id number] [address] [place] [address], [place] [address] March, [facility] [address] [id number] [address] [place] [address], [place] [address] March, [facility] [address] [id number] [address] [place] [address], [place] [address] Feb, [facility] [address] [id number] [address] [place] [address], [place] [address] Feb, [facility] [address] [id number] [address] [place] [address], [place] [address] Feb, [facility] [address] [id number] [address] [place] [address], [place] [address] Jan, [facility] [address] [id number] [address] [place] [address], [place] [address] Jan, [facility] [address] [id number] [address] [place] [address], [place] [address] 07 Jan, 2013 [facility] [address] [id number] [address] [place] [address], [place] [address] 19 Dec, 2012 [facility] [address] [id number] [address] [place] [address], [place] [address] Dec, [facility] [address] [id number] [address] [place] [address], [place] [address] Dec, [facility] [address] [id number] [address] [place] [address], [place] [address] Nov, [facility] [address] [id number] [address] [place] [address], [place] [address] Nov, [facility] [address] [id number] [address] [place] [address], [place] [address] Nov, [facility] [address] [id number] [address] [place] [address], [place] [address] Nov, [facility] [address] [id number] [address] [place] [address], [place] [address] Nov, [facility] [address] [id number] [address] [place] [address], [place] [address] Nov, [facility] [address] [id number] [address] [place] [address], [place] [address] Oct, [facility] [address] [id number] [address] [place] [address], [place] [address] Oct, [facility] [address] [id number] [address] [place] [address], [place] [address] Oct, [facility] [address] [id number] [address] [place] [address], [place] [address] Oct, [facility] [address] [id number] [address] [place] [address], [place] [address] Sep, [facility] [address] [id number] [address] [place] [address], [place] [address] Sep, [facility] [address] [id number] [address] [place] [address], [place] [address] Sep, [facility] [address] [id number] [address] [place] [address], [place] [address] Sep, [facility] [address] [id number] [address] [place] [address], [place] [address] Aug, [facility] [address] [id number] [address] [place] [address], [place] [address] 24 Jul, 2012 [facility] [address] [id number] [address] [place] [address], [place] [address] 19 Jul, 2012 [facility] [address] [id number] [address] [place] [address], [place] [address] Jul, [facility] [address] [id number] [address] [place] [address], [place] [address] Jun, [facility] [address] [id number] [address] [place] [address], [place] [address] Jun, [facility] [address] [id number] [address] [place] [address], [place] [address] Jun, [facility] [address] [id number] [address] [place] [address], [place] [address] May, [facility] [address] [id number] [address] [place] [address], [place] [address] May, [facility] [address] [id number] [address] [place] [address], [place] [address] Apr, [facility] [address] [id number] [address] [place] [address], [place] [address] Apr, [facility] [address] [id number] [address] [place] [address], [place] [address] Apr, [facility] [address] [id number] [address] [place] [address], [place] [address] Apr, [facility] [address] [id number] [address] [place] [address], [place] [address] March, [facility] [address] [id number] [address] [place] [address], [place] [address] March, [facility] [address] [id number] [address] [place] [address], [place] [phone] March, [facility] [address] [id number] [address] [place] [phone] Jan, [facility] [address] [id number] [address] [place] [phone] Jan, [facility] [address] [id number] [address] [place] [phone] Jan, [facility] [address] [id number] [address] [place] [phone] Nov, [facility] [address] [id number] [address] [place] [phone] Nov, [facility] [address] [id number] [address] [place] [phone] Nov, [facility] [address] [id number] [address] [place] [phone] Nov, [facility] [address] [id number] [address] [place] [phone] Oct, [facility] [address] [id number] [address] [place] [id number] Oct, [facility] [address] [id number] [address] [place] [phone] Oct, [facility] [address] [id number] [address] [place] [phone] Oct, [facility] [address] [id number] [address] [place] [phone] Oct, [facility] [address] [id number] [address] [place] [phone] Oct, [facility] [address] [id number] [address] [place] [phone] Oct, IMMUNIZATIONS Vaccine Route Administration Date Status FLULAVAL QUAD 0.5ML (6 MO & UP) 2018 IM Intramuscular Aug 27 18 Administered PCV 13 IM Intramuscular Aug 27, 2018 Administered SOCIAL HISTORY Never Assessed REASON FOR VISIT Medicare AWV PLAN OF CARE Activity Details Follow Up 1 Year Reason:Medicare AWV S ubsequent VITAL SIGNS Height 69 in 2018-08-27 Weight 234 lbs 2018-08-27 Temperature 97.7 degrees Fahrenheit 2018-08-27 Heart Rate 90 bpm 2018-08-27 Respiratory Rate 20 2018-08-27 BMI 34.55 kg/m2 2018-08-27 Blood pressure systolic 122 mmHg 2018-08-27 Blood pressure diastolic 68 mmHg 2018-08-27 MEDICATIONS Medication Instructions Dosage Frequency Start Date End Date Duration S tatus Ramipril 5MG Orally Once a day 1 capsule 24h Active Victoza 18 MG/3ML Subcutaneous Once a day 1.8 mg 24h Jan, Active Furosemide 20 MG Orally Once a day 24h Active Plavix 75MG Orally Once a day 1 tablet 24h A ctive Aspir-81 81 MG Orally Once a day 1 tablet 24h Active NovoLog Flexpen 100 UNIT/ML INJECT 40 UN ITS SUBCUTANEOUSLY THREE TIMES PER DAY 62 Active Simvastatin 40MG Orally Once a day 1 tablet in the evening 24h Active Fish Oil 1200 MG Orally twice a day 1 capsule 12h Active Nortriptyline HCl 50MG Orally Once a day 1-2 capsule at bedtime 24h Active NovoFine 32G X 6 MM subcutaneously Once a day 1 pen needle 24h 24 2016 Active Carvedilol 25 MG TAKE ONE TABLET BY MOUTH TWICE DAILY Active Levemir FlexTouch 100 UNIT/ML INJECT 65 UNITS SUBCUTANEOUSLY ONCE DAILY 115 Active Pantoprazole Sodium 40MG TAKE ONE TABLET BY MOUTH ONCE DAILY Active Tamsulosin HCl 0.4 MG Orally Once a day 1 capsule 24h Active RESULTS No Results PROCEDURES Procedure Date Ordered Result Body Site FLULAVAL QUAD 0.5ML (6 MO & UP) 2017Aug 27, 2018 ADMN FLU VAC NO FEE SCHED SAME DAY Aug 27, 2018 ANNUAL CELINA VST; PERSALBINA PPS INIT Aug 27, 2018 SINGLE IMMUNIZATION ADMIN Aug 27, 2018 PCV 13 Aug 27, 2018 [facility] VISIT IPPE/AWV Aug 27, 2018 IMMUNIZATION ADMIN, EACH ADD (please include units) Aug 27, 2018 INSTRUCTIONS MEDICATIONS ADMINISTERED No Known Medications MEDICAL (GENERAL) HISTORY Type Description Date Medical History chronic obstructive pulmonary disease (C OPD) Medical History diabetes mellitus Medical History Hypertension Medical History Hyperlipidemia Medical History Stroke syndrome 2006 Surgical History Left leg amputation 1998 Surgical History Cardiothoracic surgery Defibrillator 200 6 Hospitalization History surgeries
--- OUTSIDE RECORDS SUMMARY | 2020-04-18 19:38 | XMS REPORT ---
Author Author Carroll HUTCHINSON Organization [facility] Address [address] [place] [address] Care Team Providers Care Sales Correspondence Clerk Name Role Phone ANDRIY HUTCHINSON Unavailable PROBLEMS Type Condition ICD9-CM Code BGB62-DS Code Onset Dates Condition S tatus SNOMED Code Problem Arthritis M19.90 Active 8342495 Problem Diabetes E11.9 Active 959472889 Problem Type 2 diabetes mellitus without complications E11 .9 Active 590310085 Problem Coronary disease I25.10 Active 537 41830 Problem Gastroesophageal reflux disease, esophagitis pre sence not specified K21.9 Active 839293694 Problem Anxiety F41.9 Active 47665975 Problem 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.4 Active [id number] ALLERGIES No Known Allergies ENCOUNTERS Encounter Location Date Diagnosis [place] [address] [address] Jul, Friction blister of right lo wer extremity, initial encounter S80.821A [place] [id number] [address] [place] [address] Jul, Localized edema R60.0 ; Type 2 diabetes mellitus with diabetic nephropathy E11.21 ; Coronary disease I25.10 and Anxiety F41.9 [place] [address] [address] Jun, [place] [address] [address] March, Type 2 diabetes mellitus wit h diabetic nephropathy E11.21 ; FDC current use of insulin Z79.4 ; Chronic kidney disease, stage IV (severe) N18.4 ; Secondary hyperparathyroidism of renal origin N25.81 ; Coronary disease I25.10 and Gastroesophageal reflux disease, esophagitis presence not specified K21.9 [facility] [address] [facility] [id number] [address] [place] [address] Nov, Type 2 diabetes mellitus wit hout complications E11.9 ; Coronary disease I25.10 and Essential hypertension I10 [facility] [address] [id number] [address] [place] [address] May, Diabetes E11.9 [facility] [address] [facility] [id number] [address] [place] [address] Apr, Type 2 diabetes mellitus wit hout complications E11.9 and Arthritis M19.90 [facility] [address] [facility] [id number] [address] [place] [address] March, Diabetes E11.9 [facility] [address] [facility] [id number] [address] [place] [address] March, Diabetes E11.9 [facility] [address] [facility] [id number] [address] [place] [address] March, [facility] [address] [facility] [id number] [address] [place] [address] Feb, Diabetes E11.9 [facility] [address] [facility] [id number] [address] [place] [address] Feb, Diabetes E11.9 [facility] [address] [id number] [address] [place] [address] Jan, [facility] [address] [id number] [address] [place] [address] Jan, Diabetes E11.9 [facility] [address] [facility] [id number] [address] [place] [address] Jan, Type 2 diabetes mellitus wit hout complications E11.9 [facility] [address] [facility] [id number] [address] [place] [address] Oct, [facility] [address] [id number] [address] [place] [address] Oct, Gastroesophageal reflux dise ase, esophagitis presence not specified K21.9 [facility] [address] [id number] [address] [place] [address] Sep, [facility] [address] [id number] [address] [place] [address] Sep, [facility] [address] [id number] [address] [place] [address] Sep, [facility] [address] [id number] [address] [place] [address] Aug, [facility] [address] [id number] [address] [place] [address] Aug, Diabetes E11.9 and Encounter for immunization Z23 [facility] [address] [id number] [address] [place] [address] Aug, [facility] [address] [id number] [address] [place] [address] Jul, [facility] [address] [id number] [address] [place] [address] Jun, [facility] [address] [id number] [address] [place] [address] May, Diabetes E11.9 [facility] [address] [id number] [address] [place] [address] Apr, [facility] [address] [id number] [address] [place] [address] Apr, [facility] [address] [id number] [address] [place] [address] March, [facility] [address] [id number] [address] [place] [address] March, [facility] [address] [id number] [address] [place] [address] Feb, [facility] [address] [id number] [address] [place] [address] Feb, [facility] [address] [id number] [address] [place] [address] Feb, [facility] [address] [id number] [address] [place] [address] Feb, [facility] [address] [id number] [address] [place] [address] Feb, [facility] [address] [id number] [address] [place] [address] Feb, Type 2 diabetes mellitus wit hout complications E11.9 [facility] [address] [facility] [id number] [address] [place] [address] Feb, [facility] [address] [id number] [address] [place] [address] Jan, [facility] [address] [id number] [address] [place] [address] Dec, Eustachian tube dysfunction H69.80 and Diabetes E11.9 [facility] [address] [id number] [address] [place] [address] Dec, [facility] [address] [id number] [address] [place] [address] Dec, [facility] [address] [id number] [address] [place] [address] Dec, Type 2 diabetes mellitus wit hout complications E11.9 ; Atherosclerotic heart disease of [place] coronary artery without angina pectoris I25.10 and Diabetes E11.9 [facility] [address] [id number] [address] [place] [address] Dec, [facility] [address] [facility] [id number] [address] [place] [address] 05 Dec, 2015 CHF (congestive heart failur e) I50.9 [facility] [address] [facility] [id number] [address] [place] [address] Nov, Diabetes E11.9 and Coronary disease I25.10 [facility] [address] [id number] [address] [place] [address] Oct, [facility] [address] [id number] [address] [place] [address] Aug, [facility] [address] [id number] [address] [place] [address] Jul, [facility] [address] [id number] [address] [place] [address] Jul, DM w/o complication type II 250.00 and Spontaneous bleeding of digits 459.0 [facility] [address] [facility] [id number] [address] [place] [address] Apr, [facility] [address] [id number] [address] [place] [address] Apr, [facility] [address] [facility] [id number] [address] [place] [address] March, CHF (congestive heart failur e) 428.0 and Coronary atherosclerosis of unspecified type of vessel, [place] or graft 414.00 [facility] [address] [facility] [id number] [address] [place] [address] March, [facility] [address] [id number] [address] [place] [address] Feb, [facility] [address] [id number] [address] [place] [address] Feb, [facility] [address] [facility] [id number] [address] [place] [address] Jan, [facility] [address] [facility] [id number] [address] [place] [address] Jan, [facility] [address] [facility] [id number] [address] [place] [address] Dec, 2014 [facility] [address] [id number] [address] [place] [address], [place] [address] Dec, 2014 [facility] [address] [id number] [address] [place] [address], [place] [address] Dec, 2014 [facility] [address] [id number] [address] [place] [address], [place] [address] Dec, 2014 [facility] [address] [id number] [address] [place] [address], [place] [address] Dec, [facility] [address] [id number] [address] [place] [address], [place] [address] Dec, [facility] [address] [id number] [address] [place] [address], [place] [address] Nov, [facility] [address] [id number] [address] [place] [address], [place] [address] Nov, [facility] [address] [id number] [address] [place] [address], [place] [address] Oct, [facility] [address] [id number] [address] [place] [address], [place] [address] Sep, [facility] [address] [id number] [address] [place] [address], [place] [address] Sep, [facility] [address] [id number] [address] [place] [address], [place] [address] Sep, [facility] [address] [id number] [address] [place] [address], [place] [address] Sep, [facility] [address] [id number] [address] [place] [address], [place] [address] 18 Jul, 2014 [facility] [address] [id number] [address] [place] [address], [place] [address] 18 Jul, 2014 [facility] [address] [id number] [address] [place] [address], [place] [address] Jul, [facility] [address] [id number] [address] [place] [address], [place] [address] Jul, [facility] [address] [id number] [address] [place] [address], [place] [address] Jun, [facility] [address] [id number] [address] [place] [address], [place] [address] Jun, [facility] [address] [id number] [address] [place] [address], [place] [address] Jun, [facility] [address] [id number] [address] [place] [address], [place] [address] Jun, [facility] [address] [id number] [address] [place] [address], [place] [address] Apr, [facility] [address] [id number] [address] [place] [address], [place] [address] Apr, [facility] [address] [id number] [address] [place] [address], [place] [address] Apr, [facility] [address] [id number] [address] [place] [address], [place] [address] Apr, [facility] [address] [id number] [address] [place] [address], [place] [address] Dec, [facility] [address] [id number] [address] [place] [address], [place] [address] Dec, [facility] [address] [id number] [address] [place] [address], [place] [address] Dec, [facility] [address] [id number] [address] [place] [address], [place] [address] Dec, [facility] [address] [id number] [address] [place] [address], [place] [address] Dec, [facility] [address] [id number] [address] [place] [address], [place] [address] Dec, [facility] [address] [id number] [address] [place] [address], [place] [address] Nov, [facility] [address] [id number] [address] [place] [address], [place] [address] Nov, [facility] [address] [id number] [address] [place] [address], [place] [address] Sep, [facility] [address] [id number] [address] [place] [address], [place] [address] Sep, [facility] [address] [id number] [address] [place] [address], [place] [address] Sep, [facility] [address] [id number] [address] [place] [address], [place] [address] Sep, [facility] [address] [id number] [address] [place] [address], [place] [address] Sep, [facility] [address] [id number] [address] [place] [address], [place] [address] Aug, [facility] [address] [id number] [address] [place] [address], [place] [address] Aug, [facility] [address] [id number] [address] [place] [address], [place] [address] Aug, [facility] [address] [id number] [address] [place] [address], [place] [address] Aug, [facility] [address] [id number] [address] [place] [address], [place] [address] Jul, [facility] [address] [id number] [address] [place] [address], [place] [address] Jun, [facility] [address] [id number] [address] [place] [address], [place] [address] May, [facility] [address] [id number] [address] [place] [address], [place] [address] May, [facility] [address] [id number] [address] [place] [address], [place] [address] May, [facility] [address] [id number] [address] [place] [address], [place] [address] Apr, [facility] [address] [id number] [address] [place] [address], [place] [address] Apr, [facility] [address] [id number] [address] [place] [address], [place] [address] March, [facility] [address] [id number] [address] [place] [address], [place] [address] March, [facility] [address] [id number] [address] [place] [address], [place] [address] Feb, [facility] [address] [id number] [address] [place] [address], [place] [address] Feb, [facility] [address] [id number] [address] [place] [address], [place] [address] Feb, [facility] [address] [id number] [address] [place] [address], [place] [address] Jan, [facility] [address] [id number] [address] [place] [address], [place] [address] Jan, [facility] [address] [id number] [address] [place] [address], [place] [address] Jan, [facility] [address] [id number] [address] [place] [address], [place] [address] Dec, [facility] [address] [id number] [address] [place] [address], [place] [address] Dec, [facility] [address] [id number] [address] [place] [address], [place] [address] Dec, [facility] [address] [id number] [address] [place] [address], [place] [address] Nov, [facility] [address] [id number] [address] [place] [address], [place] [address] Nov, [facility] [address] [id number] [address] [place] [address], [place] [address] 14 Nov, 2012 [facility] [address] [id number] [address] [place] [address], [place] [address] Nov, [facility] [address] [id number] [address] [place] [address], [place] [address] Nov, [facility] [address] [id number] [address] [place] [address], [place] [address] Nov, [facility] [address] [id number] [address] [place] [address], [place] [address] Oct, [facility] [address] [id number] [address] [place] [address], [place] [address] Oct, [facility] [address] [id number] [address] [place] [address], [place] [address] Oct, [facility] [address] [id number] [address] [place] [address], [place] [address] Oct, [facility] [address] [id number] [address] [place] [address], [place] [address] Sep, [facility] [address] [id number] [address] [place] [address], [place] [address] Sep, [facility] [address] [id number] [address] [place] [address], [place] [address] Sep, [facility] [address] [id number] [address] [place] [address], [place] [address] Sep, [facility] [address] [id number] [address] [place] [address], [place] [address] Aug, [facility] [address] [id number] [address] [place] [address], [place] [address] 24 Jul, 2012 [facility] [address] [id number] [address] [place] [address], [place] [address] 19 Jul, 2012 [facility] [address] [id number] [address] [place] [address], [place] [address] 11 Jul, 2012 [facility] [address] [id number] [address] [place] [address], [place] [address] Jun, [facility] [address] [id number] [address] [place] [address], [place] [address] Jun, [facility] [address] [id number] [address] [place] [address], [place] [address] Jun, [facility] [address] [id number] [address] [place] [address], [place] [address] May, [facility] [address] [id number] [address] [place] [address], [place] [address] May, [facility] [address] [id number] [address] [place] [address], [place] [address] Apr, [facility] [address] [id number] [address] [place] [address], [place] [address] Apr, [facility] [address] [id number] [address] [place] [address], [place] [address] Apr, [facility] [address] [id number] [address] [place] [address], [place] [address] Apr, [facility] [address] [id number] [address] [place] [address], [place] [address] March, [facility] [address] [id number] [address] [place] [address], [place] [address] March, [facility] [address] [id number] [address] [place] [address], [place] [id number] March, [facility] [address] [id number] [address] [place] [address], [place] [address] Jan, [facility] [address] [id number] [address] [place] [address], [place] [address] Jan, [facility] [address] [id number] [address] [place] [address], [place] [address] Jan, [facility] [address] [id number] [address] [place] [address], [place] [address] Nov, [facility] [address] [id number] [address] [place] [phone] Nov, [facility] [address] [id number] [address] [place] [phone] Nov, [facility] [address] [id number] [address] [place] [phone] Nov, [facility] [address] [id number] [address] [place] [phone] Oct, [facility] [address] [id number] [address] [place] [phone] Oct, [facility] [address] [id number] [address] [place] [phone] Oct, [facility] [address] [id number] [address] [place] [phone] Oct, [facility] [address] [id number] [address] [place] [phone] Oct, [facility] [address] [id number] [address] [place] [id number] Oct, [facility] [address] [id number] [address] [place] [phone] Oct, IMMUNIZATIONS No Known Immunizations SOCIAL HISTORY Never Assessed REASON FOR VISIT Pain (acute) Leg-PATTI velasquez, patient complains of a spot on his right leg PLAN OF CARE Activity Details Follow Up prn Reason:redness, worsenin g pain, fever VITAL SIGNS Height 69 in 2018-08-01 Weight 233.2 lbs 2018-08-01 Temperature 98.1 degrees Fahrenheit 2018-08-01 Heart Rate 94 bpm 2018-08-01 Respiratory Rate 20 2018-08-01 Oximetry on room air:96 % 2018-08-01 BMI 34.43 kg/m2 2018-08-01 Blood pressure systolic 140 mmHg 2018-08-01 Blood pressure diastolic 60 mmHg 2018-08-01 MEDICATIONS Medication Instructions Dosage Frequency Start Date End Date Duration S tatus Fish Oil 1200 MG Orally twice a day 1 capsule 12h Active NovoLog Flexpen 100 UNIT/ML INJECT 40 UN ITS SUBCUTANEOUSLY THREE TIMES PER DAY 62 Active Victoza 18 MG/3ML Subcutaneous Once a day 1.8 mg 24h Jan, Active Pantoprazole Sodium 40MG TAKE ONE TABLET BY MOUTH ONCE DAILY Active Aspir-81 81 MG Orally Once a day 1 tablet 24h Active Carvedilol 25 MG TAKE ONE TABLET BY MOUTH TWICE DAILY Active Ramipril 5MG Orally Once a day 1 capsule 24h Active Nortriptyline HCl 50 MG Orally Once a day 1-2 capsule at bedtime 24h Active Tamsulosin HCl 0.4 MG Orally Once a day 1 capsule 24h Active Levemir FlexTouch 100 UNIT/ML INJECT 65 UNITS SUBCUTANEOUSLY ONCE DAILY 115 Active Furosemide 20 MG Orally Once a day 24h Active NovoFine 32G X 6 MM subcutaneously Once a day 1 pen needle 24h 2016 Active Simvastatin 40MG Orally Once a day 1 tablet in the evening 24h Active Plavix 75MG Orally Once a day 1 tablet 24h A ctive RESULTS No Results PROCEDURES Procedure Date Ordered Result Body Site [facility] VISIT ESTABLISHED PATIENT Aug 01, 2018 INSTRUCTIONS MEDICATIONS ADMINISTERED No Known Medications MEDICAL (GENERAL) HISTORY Type Description Date Medical History chronic obstructive pulmonary disease (C OPD) Medical History diabetes mellitus Medical History Hypertension Medical History Hyperlipidemia Medical History Stroke syndrome 2006 Surgical History Left leg amputation 1998 Surgical History Cardiothoracic surgery Defibrillator 200 6 Hospitalization History surgeries
--- OUTSIDE RECORDS SUMMARY | 2020-04-18 19:39 | XMS REPORT ---
Author Author Carroll CUNHA [facility] eClinicalWorks Address Unknown Phone Unavailable Care Team Providers Care Optical Glass Inspector Name Role Phone JS CUNHA Unavailable Allergies No Known Allergies Problems Problem Type Condition Code Onset Dates Condition Statu s Problem Diabetes E11.9 Active Problem Coronary disease I25.10 Active Problem Type 2 diabetes mellitus without complications E11.9 Active Problem Lower limb amputation, above knee V49.76 Active Problem Coronary atherosclerosis of unspecified type of vessel, [place] or graft 414.00 Active Medications No Known Medications Results No Known Results Summary Purpose eClinicalWorks Submission
--- OUTSIDE RECORDS SUMMARY | 2020-04-18 19:39 | XMS REPORT ---
Author Author Carroll CUNHA [facility] eClinicalWorks Address Unknown Phone Unavailable Care Team Providers Care Enrobing Machine Corder Name Role Phone JS CUNHA Unavailable Allergies No Known Allergies Problems Problem Type Condition Code Onset Dates Condition Statu s Problem Unspecified arthropathy, site unspecified 716.90 Active Problem Lower limb amputation, above knee V49.76 Active Problem Contact dermatitis and other eczema, due to unspecifie d cause 692.9 Active Problem DM w/o complication type II 250.00 Active Problem Coronary atherosclerosis of unspecified type of vessel, [place] or graft 414.00 Active Problem Unspecified ventral hernia without menti on of obstruction or gangrene 553.20 Active Problem Chronic airway obstruction, not elsewhere classified 4 96 Active Problem Acute bronchitis 466.0 Active Medications Medication Code System Code Instructions Start Date End Date Status Dosage NovoLog Flexpen [facility] [address]-46 100 UNIT/ML Subcutaneous 3 times a day Nov 21, 2011 15 units by Subcutan eous route 3 times per daybefore eating Results No Known Results Summary Purpose eClinicalWorks Submission
--- OUTSIDE RECORDS SUMMARY | 2020-04-18 19:39 | XMS REPORT ---
Author Author Carroll CUNHA [facility] eClinicalWorks Address Unknown Phone Unavailable Care Team Providers Care Outside Machinist Helper Name Role Phone JS CUNHA Unavailable Allergies No Known Allergies Problems Problem Type Condition Code Onset Dates Condition Statu s Problem Diabetes E11.9 Active Problem Coronary disease I25.10 Active Problem Type 2 diabetes mellitus without complications E11.9 Active Problem Lower limb amputation, above knee V49.76 Active Problem Coronary atherosclerosis of unspecified type of vessel, [place] or graft 414.00 Active Medications Medication Code System Code Instructions Start Date End Date Status Dosage Levemir Flexpen [facility] [address]-91 100 unit/mL (3 mL) ICD10 - E11.9- Once a day Jul 24, 2014 35 Units Results No Known Results Summary Purpose eClinicalWorks Submission
--- OUTSIDE RECORDS SUMMARY | 2020-04-18 19:39 | XMS REPORT ---
Author Author Carroll CUNHA Organization [facility] Address [address] [place] [address] Care Team Providers Care Lung Splitter Name Role Phone JS CUNHA Unavailable PROBLEMS Type Condition ICD9-CM Code [id number] Code Onset Dates Condition S tatus SNOMED Code Problem Diabetes E11.9 Active 093157727 Problem Arthritis M19.90 Active 4062078 Problem Coronary disease I25.10 Active 537 88228 Problem Type 2 diabetes mellitus without complications E11 .9 Active 744396118 Problem Gastroesophageal reflux disease, esophagitis pre sence not specified K21.9 Active 542112494 ALLERGIES No Information SOCIAL HISTORY Never Assessed PLAN OF CARE VITAL SIGNS MEDICATIONS Unknown Medications RESULTS No Results PROCEDURES No Known procedures IMMUNIZATIONS No Known Immunizations MEDICAL (GENERAL) HISTORY Type Description Date Medical History chronic obstructive pulmonary disease (C OPD) Medical History diabetes mellitus Medical History Hypertension Medical History Hyperlipidemia Medical History Stroke syndrome 2007 Surgical History Left leg amputation 1998 Surgical History Cardiothoracic surgery Defibrillator 200 6 Hospitalization History surgeries
--- OUTSIDE RECORDS SUMMARY | 2020-04-18 19:39 | XMS REPORT ---
Author Author Carroll CUNHA eClinicalWorks Address Unknown Phone Unavailable Care Team Providers Care Medical Dermatologist Name Role Phone JS CUNHA CP Unavailable Allergies, Adverse Reactions, Alerts Substance Reaction Event Type N.K.D.A. Info Not Available Non Drug Allergy Problems Problem Type Condition Code Onset Dates Condition Statu s Problem Coronary disease I25.10 Active Problem Lower limb amputation, above knee V49.76 Active Problem Diabetes E11.9 Active Assessment Coronary disease I25.10 Active Problem Coronary atherosclerosis of unspecified type of vessel, [place] or graft 414.00 Active Assessment Diabetes E11.9 Active Medications Medication Code System Code Instructions Start Date End Date Status Dosage Furosemide [facility] 10592997121 40MG TAKE ONE TABLET BY MOUTH ONCE DAILY Qvar [facility] [address]-93 40 mcg/actuation January 29, 2015 2 Puffs by Inhalation route 2 times per day ProAir HFA [facility] [address]-79 90 mcg/actuation January 29, 2015 2 puffs by Inhalation route every 4 hours PRN Diclofenac Sodium [facility] 08301980111 75MG TA KE ONE TABLET BY MOUTH TWICE DAILY NEEDED Klor-Con M10 [facility] 56363691494 10MEQ TAKE ON E TABLET BY MOUTH ONCE DAILY Symbicort [facility] [address]-23 160-4.5 mcg/actuation Dec 31, 2013 inhale 2 puffs by inhalation route 2 times per day in the morning and evening NovoLog Flexpen [facility] [address]-07 100 UNIT/ML Subcutaneous 3 times a day INJECT 10 UNITS Aspir-81 [facility] [address]-85 81 MG Orally Once a day 1 tablet Levemir Flexpen [facility] [address]-14 100 unit/mL (3 mL) Jul 24, 2014 20 Units by Subcutaneous route 1 time per day at bedtime Procedures Procedure Coding System Code Date [facility] VISIT ESTABLISHED PATIENT CPT-4 G0467 J an 2015 Office Visit, Est Pt., Level 2 CPT-4 82395 J an 2015 GLYCATED HEMOGLOBIN TEST CPT-4 19611 Nov 09, 2015 Vital Signs Date/Time: Nov 09, 2015 Temperature 97.5 F Weight 203.1 lbs Height 69 in BMI 29.99 Index Blood Pressure Diastolic 52 mmHg Blood Pressure Systolic 114 mmHg Cardiac Monitoring Heart Rate 88 bpm Results Name Result Date Reference Range Unit Abnormali ty Flag A1C (IN HOUSE) ----A1C IN HOUSE 5.2 20151109 4.30 - 5.6 % ----Previous A1c 5.5 [id number] ----Lot # [id number] ----Exp date [id number] Summary Purpose eClinicalWorks Submission
--- OUTSIDE RECORDS SUMMARY | 2020-04-18 19:39 | XMS REPORT ---
Author Author Carroll CUNHA Organization [facility] Address [address] [place] [address] Care Team Providers Care Stock Pitcher Name Role Phone JS CUNHA Unavailable PROBLEMS Type Condition ICD9-CM Code [id number] Code Onset Dates Condition S tatus SNOMED Code Problem Diabetes E11.9 Active 928984832 Problem Type 2 diabetes mellitus without complications E11 .9 Active 193546065 Problem Coronary disease I25.10 Active 537 50647 Problem Arthritis M19.90 Active 9729823 Problem Gastroesophageal reflux disease, esophagitis pre sence not specified K21.9 Active 493095286 ALLERGIES Unknown Allergies SOCIAL HISTORY No smoking Hx information available PLAN OF CARE VITAL SIGNS MEDICATIONS Medication Instructions Dosage Frequency Start Date End Date Duration S tatus Pantoprazole Sodium 40MG TAKE ONE TABLET BY MOUTH ONCE DAILY 90 Active RESULTS No Results PROCEDURES No Known procedures IMMUNIZATIONS No Known Immunizations
--- OUTSIDE RECORDS SUMMARY | 2020-04-18 19:39 | XMS REPORT ---
Author Author Carroll CUNHA Organization [facility] Address [address] [place] [address] Care Team Providers Care Director Blood Bank Name Role Phone JS CUNHA Unavailable PROBLEMS Type Condition ICD9-CM Code RJA07-LT Code Onset Dates Condition S tatus SNOMED Code Problem Arthritis M19.90 Active 8279966 Problem Diabetes E11.9 Active 560971022 Problem Type 2 diabetes mellitus without complications E11 .9 Active 426059715 Problem Coronary disease I25.10 Active 537 20441 Problem Gastroesophageal reflux disease, esophagitis pre sence not specified K21.9 Active 725750307 Problem Anxiety F41.9 Active 15317783 Problem 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 81 Active 70253348 Problem skilled nursing current use of insulin Z79.4 Active 473440657 ALLERGIES No Known Allergies ENCOUNTERS Encounter Location Date Diagnosis [place] [address] [place] [id number] [place] [address] Jul, Friction blister of right lo wer extremity, initial encounter S80.821A [place] [address] [place] [id number] [address] [place] [address] Jul, Localized edema R60.0 ; Type 2 diabetes mellitus with diabetic nephropathy E11.21 ; Coronary disease I25.10 and Anxiety F41.9 [place] [id number] [address] [place] [address] Jun, [place] [address] [place] [id number] [address] [place] [address] March, Type 2 diabetes mellitus wit h diabetic nephropathy E11.21 ; 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.4 ; Chronic kidney disease, stage IV (severe) N18.4 ; Secondary hyperparathyroidism of renal origin N25.81 ; Coronary disease I25.10 and Gastroesophageal reflux disease, esophagitis presence not specified K21.9 [facility] [address] [facility] [id number] [address] [place] [address] Nov, Type 2 diabetes mellitus wit hout complications E11.9 ; Coronary disease I25.10 and Essential hypertension I10 [facility] [address] [id number] [address] [place] [address] May, Diabetes E11.9 [facility] [address] [facility] [id number] [address] [place] [address] Apr, Type 2 diabetes mellitus wit hout complications E11.9 and Arthritis M19.90 [facility] [address] [facility] [id number] [address] [place] [address] March, Diabetes E11.9 [facility] [address] [facility] [id number] [address] [place] [address] March, Diabetes E11.9 [facility] [address] [facility] [id number] [address] [place] [address] March, [facility] [address] [facility] [id number] [address] [place] [address] Feb, Diabetes E11.9 [facility] [address] [facility] [id number] [address] [place] [address] Feb, Diabetes E11.9 [facility] [address] [facility] [id number] [address] [place] [phone] Jan, [facility] [address] [facility] [id number] [address] [place] [address] Jan, Diabetes E11.9 [facility] [address] [facility] [id number] [address] [place] [address] Jan, Type 2 diabetes mellitus wit hout complications E11.9 [facility] [address] [facility] [id number] [address] [place] [address] Oct, [facility] [address] [id number] [address] [place] [address] Oct, Gastroesophageal reflux dise ase, esophagitis presence not specified K21.9 [facility] [address] [id number] [address] [place] [phone] Sep, [facility] [address] [id number] [address] [place] [phone] Sep, [facility] [address] [id number] [address] [place] [address] Sep, [facility] [address] [id number] [address] [place] [phone] Aug, [facility] [address] [id number] [address] [place] [address] Aug, Diabetes E11.9 and Encounter for immunization Z23 [facility] [address] [id number] [address] [place] [address] Aug, [facility] [address] [id number] [address] [place] [address] Jul, [facility] [address] [id number] [address] [place] [phone] Jun, [facility] [address] [id number] [address] [place] [phone] May, Diabetes E11.9 [facility] [address] [id number] [address] [place] [address] Apr, [facility] [address] [id number] [address] [place] [phone] Apr, [facility] [address] [id number] [address] [place] [phone] March, [facility] [address] [id number] [address] [place] [address] March, [facility] [address] [id number] [address] [place] [address] Feb, [facility] [address] [id number] [address] [place] [phone] Feb, [facility] [address] [id number] [address] [place] [phone] Feb, [facility] [address] [id number] [address] [place] [phone] Feb, [facility] [address] [id number] [address] [place] [address] Feb, [facility] [address] [id number] [address] [place] [address] Feb, Type 2 diabetes mellitus wit hout complications E11.9 [facility] [address] [facility] [id number] [address] [place] [address] Feb, [facility] [address] [id number] [address] [place] [address] Jan, [facility] [address] [id number] [address] [place] [address] Dec, Eustachian tube dysfunction H69.80 and Diabetes E11.9 [facility] [address] [id number] [address] [place] [address] Dec, [facility] [address] [facility] [id number] [address] [place] [phone] Dec, [facility] [address] [id number] [address] [place] [address] Dec, Type 2 diabetes mellitus wit hout complications E11.9 ; Atherosclerotic heart disease of [place] coronary artery without angina pectoris I25.10 and Diabetes E11.9 [facility] [address] [facility] [id number] [address] [place] [address] Dec, [facility] [address] [facility] [id number] [address] [place] [phone] 05 Dec, 2015 CHF (congestive heart failur e) I50.9 [facility] [address] [facility] [id number] [address] [place] [address] Nov, Diabetes E11.9 and Coronary disease I25.10 [facility] [address] [id number] [address] [place] [phone] Oct, [facility] [address] [id number] [address] [place] [address] Aug, [facility] [address] [id number] [address] [place] [address] Jul, [facility] [address] [id number] [address] [place] [address] Jul, DM w/o complication type II 250.00 and Spontaneous bleeding of digits 459.0 [facility] [address] [facility] [id number] [address] [place] [phone] Apr, [facility] [address] [id number] [address] [place] [address] Apr, [facility] [address] [facility] [id number] [address] [place] [address] March, CHF (congestive heart failur e) 428.0 and Coronary atherosclerosis of unspecified type of vessel, [place] or graft 414.00 [facility] [address] [facility] [id number] [address] [place] [phone] March, [facility] [address] [id number] [address] [place] [phone] Feb, [facility] [address] [id number] [address] [place] [phone] Feb, [facility] [address] [facility] [id number] [address] [place] [id number] Jan, [facility] [address] [facility] [id number] [address] [place] [phone] Jan, [facility] [address] [facility] [id number] [address] [place] [phone] Dec, 2014 [facility] [address] [id number] [address] [place] [address], [place] [address] Dec, 2014 [facility] [address] [id number] [address] [place] [address], [place] [address] Dec, 2014 [facility] [address] [id number] [address] [place] [address], [place] [address] Dec, 2014 [facility] [address] [id number] [address] [place] [address], [place] [address] Dec, [facility] [address] [id number] [address] [place] [address], [place] [address] Dec, [facility] [address] [id number] [address] [place] [address], [place] [address] Nov, [facility] [address] [id number] [address] [place] [address], [place] [address] Nov, [facility] [address] [id number] [address] [place] [address], [place] [address] Oct, [facility] [address] [id number] [address] [place] [address], [place] [address] Sep, [facility] [address] [id number] [address] [place] [address], [place] [address] 14 Sep, 2014 [facility] [address] [id number] [address] [place] [address], [place] [address] Sep, [facility] [address] [id number] [address] [place] [address], [place] [address] Sep, [facility] [address] [id number] [address] [place] [address], [place] [address] 18 Jul, 2014 [facility] [address] [id number] [address] [place] [address], [place] [address] 18 Jul, 2014 [facility] [address] [id number] [address] [place] [address], [place] [address] Jul, [facility] [address] [id number] [address] [place] [address], [place] [address] Jul, [facility] [address] [id number] [address] [place] [address], [place] [address] Jun, [facility] [address] [id number] [address] [place] [address], [place] [address] Jun, [facility] [address] [id number] [address] [place] [address], [place] [address] Jun, [facility] [address] [id number] [address] [place] [address], [place] [address] Jun, [facility] [address] [id number] [address] [place] [address], [place] [address] Apr, [facility] [address] [id number] [address] [place] [address], [place] [address] Apr, [facility] [address] [id number] [address] [place] [address], [place] [address] Apr, [facility] [address] [id number] [address] [place] [address], [place] [address] Apr, [facility] [address] [id number] [address] [place] [address], [place] [address] Dec, [facility] [address] [id number] [address] [place] [address], [place] [address] Dec, [facility] [address] [id number] [address] [place] [address], [place] [address] Dec, [facility] [address] [id number] [address] [place] [address], [place] [address] Dec, [facility] [address] [id number] [address] [place] [address], [place] [address] Dec, [facility] [address] [id number] [address] [place] [address], [place] [address] Dec, [facility] [address] [id number] [address] [place] [address], [place] [address] Nov, [facility] [address] [id number] [address] [place] [address], [place] [address] Nov, [facility] [address] [id number] [address] [place] [address], [place] [address] Sep, [facility] [address] [id number] [address] [place] [address], [place] [address] Sep, [facility] [address] [id number] [address] [place] [address], [place] [address] Sep, [facility] [address] [id number] [address] [place] [address], [place] [address] Sep, [facility] [address] [id number] [address] [place] [address], [place] [address] Sep, [facility] [address] [id number] [address] [place] [address], [place] [address] Aug, [facility] [address] [id number] [address] [place] [address], [place] [address] Aug, [facility] [address] [id number] [address] [place] [address], [place] [address] Aug, [facility] [address] [id number] [address] [place] [address], [place] [address] Aug, [facility] [address] [id number] [address] [place] [address], [place] [address] Jul, [facility] [address] [id number] [address] [place] [address], [place] [address] Jun, [facility] [address] [id number] [address] [place] [address], [place] [address] May, [facility] [address] [id number] [address] [place] [address], [place] [address] May, [facility] [address] [id number] [address] [place] [address], [place] [address] May, [facility] [address] [id number] [address] [place] [address], [place] [address] Apr, [facility] [address] [id number] [address] [place] [address], [place] [address] Apr, [facility] [address] [id number] [address] [place] [address], [place] [address] March, [facility] [address] [id number] [address] [place] [address], [place] [address] March, [facility] [address] [id number] [address] [place] [address], [place] [address] Feb, [facility] [address] [id number] [address] [place] [address], [place] [address] Feb, [facility] [address] [id number] [address] [place] [address], [place] [address] Feb, [facility] [address] [id number] [address] [place] [address], [place] [address] Jan, [facility] [address] [id number] [address] [place] [address], [place] [address] Jan, [facility] [address] [id number] [address] [place] [address], [place] [address] Jan, [facility] [address] [id number] [address] [place] [address], [place] [address] Dec, [facility] [address] [id number] [address] [place] [address], [place] [address] Dec, [facility] [address] [id number] [address] [place] [address], [place] [address] Dec, [facility] [address] [id number] [address] [place] [address], [place] [address] Nov, [facility] [address] [id number] [address] [place] [address], [place] [address] Nov, [facility] [address] [id number] [address] [place] [address], [place] [address] 14 Nov, 2012 [facility] [address] [id number] [address] [place] [address], [place] [address] Nov, [facility] [address] [id number] [address] [place] [address], [place] [address] Nov, [facility] [address] [id number] [address] [place] [address], [place] [address] Nov, [facility] [address] [id number] [address] [place] [address], [place] [address] Oct, [facility] [address] [id number] [address] [place] [address], [place] [address] Oct, [facility] [address] [id number] [address] [place] [address], [place] [address] Oct, [facility] [address] [id number] [address] [place] [address], [place] [address] Oct, [facility] [address] [id number] [address] [place] [address], [place] [address] Sep, [facility] [address] [id number] [address] [place] [address], [place] [address] Sep, [facility] [address] [id number] [address] [place] [address], [place] [address] Sep, [facility] [address] [id number] [address] [place] [address], [place] [address] Sep, [facility] [address] [id number] [address] [place] [address], [place] [address] Aug, [facility] [address] [id number] [address] [place] [address], [place] [address] 24 Jul, 2012 [facility] [address] [id number] [address] [place] [address], [place] [address] 19 Jul, 2012 [facility] [address] [id number] [address] [place] [address], [place] [address] 11 Jul, 2012 [facility] [address] [id number] [address] [place] [address], [place] [address] Jun, [facility] [address] [id number] [address] [place] [address], [place] [address] Jun, [facility] [address] [id number] [address] [place] [address], [place] [address] Jun, [facility] [address] [id number] [address] [place] [address], [place] [address] May, [facility] [address] [id number] [address] [place] [address], [place] [address] May, [facility] [address] [id number] [address] [place] [address], [place] [address] Apr, [facility] [address] [id number] [address] [place] [address], [place] [address] Apr, [facility] [address] [id number] [address] [place] [address], [place] [address] Apr, [facility] [address] [id number] [address] [place] [address], [place] [address] Apr, [facility] [address] [id number] [address] [place] [address], [place] [address] March, [facility] [address] [id number] [address] [place] [address], [place] [address] March, [facility] [address] [id number] [address] [place] [address], [place] [address] March, [facility] [address] [id number] [address] [place] [address], [place] [address] Jan, [facility] [address] [id number] [address] [place] [address], [place] [address] Jan, [facility] [address] [id number] [address] [place] [address], [place] [address] Jan, [facility] [address] [id number] [address] [place] [address], [place] [address] Nov, [facility] [address] [id number] [address] [place] [address] Nov, [facility] [address] [id number] [address] [place] [address] Nov, [facility] [address] [id number] [address] [place] [phone] Nov, [facility] [address] [id number] [address] [place] [phone] Oct, [facility] [address] [id number] [address] [place] [phone] Oct, [facility] [address] [id number] [address] [place] [phone] Oct, [facility] [address] [id number] [address] [place] [phone] Oct, [facility] [address] [id number] [address] [place] [phone] Oct, [facility] [address] [id number] [address] [place] [phone] Oct, [facility] [address] [id number] [address] [place] [phone] Oct, IMMUNIZATIONS No Known Immunizations SOCIAL HISTORY Never Assessed REASON FOR VISIT Swelling to right foot, +1 pitting edema. CAROLINE Cheung, C/O anxiety in the afterno on until bedtime. PLAN OF CARE Activity Details Follow Up 4 Weeks Reason: VITAL SIGNS Height 69 in 2018-07-12 Weight 233.1 lbs 2018-07-12 Temperature 98.4 degrees Fahrenheit 2018-07-12 Heart Rate 71 bpm 2018-07-12 Respiratory Rate 22 2018-07-12 BMI 34.42 kg/m2 2018-07-12 Blood pressure systolic 116 mmHg 2018-07-12 Blood pressure diastolic 58 mmHg 2018-07-12 MEDICATIONS Medication Instructions Dosage Frequency Start Date End Date Duration S ana maria BusPIRone HCl 10 mg Orally Twice a day 1 tablet 12h Jul, Active Victoza 18 MG/3ML Subcutaneous Once a day 1.8 mg 24h 27 Jan, 2017 Active Furosemide 20 MG Orally Once a day 24h Active Levemir FlexTouch 100 UNIT/ML INJECT 65 UNITS SUBCUTANEOUSLY ONCE DAILY 115 Active Nortriptyline HCl 50 MG Orally Once a day 1-2 capsule at bedtime 24h Active Allopurinol 100 MG Orally Once a day 1 tablet 24h Active Simvastatin 40MG Orally Once a day 1 tablet in the evening 24h Active NovoFine 32G X 6 MM subcutaneously Once a day 1 pen needle 24h 24 2016 Active Fish Oil 1200 MG Orally twice a day 1 capsule 12h Active Aspir-81 81 MG Orally Once a day 1 tablet 24h Active Tamsulosin HCl 0.4 MG Orally Once a day 1 capsule 24h Active Plavix 75MG Orally Once a day 1 tablet 24h A ctive Ramipril 5MG Orally Once a day 1 capsule 24h Active Pantoprazole Sodium 40MG TAKE ONE TABLET BY MOUTH ONCE DAILY Active NovoLog Flexpen 100 UNIT/ML INJECT 40 UN ITS SUBCUTANEOUSLY THREE TIMES PER DAY 62 Active Carvedilol 25 MG TAKE ONE TABLET BY MOUTH TWICE DAILY Active RESULTS Name Result Date Reference Range A1C (IN HOUSE) 2018-07-12 A1C IN HOUSE 7.6 4.3 - 5.6 % Previous A1c 7.5 Lot [id number] Exp date 01/2020 PROCEDURES Procedure Date Ordered Result Body Site [facility] VISIT ESTABLISHED PATIENT Jul 12, 2018 GLYCATED HEMOGLOBIN TEST Jul 12, 2018 INSTRUCTIONS MEDICATIONS ADMINISTERED No Known Medications MEDICAL (GENERAL) HISTORY Type Description Date Medical History chronic obstructive pulmonary disease (C OPD) Medical History diabetes mellitus Medical History Hypertension Medical History Hyperlipidemia Medical History Stroke syndrome 2006 Surgical History Left leg amputation 1998 Surgical History Cardiothoracic surgery Defibrillator 200 6 Hospitalization History surgeries
--- OUTSIDE RECORDS SUMMARY | 2020-04-18 19:39 | XMS REPORT ---
Author Author Carroll CUNHA [facility] [place] eClinicalWorks Address Unknown Phone Unavailable Care Team Providers Care Embossing Calender Operator Name Role Phone JS CUNHA Unavailable Allergies No Known Allergies Problems Problem Type Condition Code Onset Dates Condition Statu s Problem Diabetes E11.9 Active Problem Coronary disease I25.10 Active Problem Type 2 diabetes mellitus without complications E11.9 Active Problem Lower limb amputation, above knee V49.76 Active Problem Coronary atherosclerosis of unspecified type of vessel, [place] or graft 414.00 Active Medications Medication Code System Code Instructions Start Date End Date Status Dosage Trulicity [facility] [address]-20 0.75 MG/0.5ML Subcutaneous once weekly February 16, 2016 0.5 ml Results No Known Results Summary Purpose eClinicalWorks Submission
--- OUTSIDE RECORDS SUMMARY | 2020-04-18 19:39 | XMS REPORT ---
Author Author Carroll CUNHA [facility] eClinicalWorks Address Unknown Phone Unavailable Care Team Providers Care [place] Mason Name Role Phone JS CUNHA Unavailable Allergies No Known Allergies Problems Problem Type Condition Code Onset Dates Condition Statu s Problem Diabetes E11.9 Active Problem Coronary disease I25.10 Active Problem Type 2 diabetes mellitus without complications E11.9 Active Problem Lower limb amputation, above knee V49.76 Active Problem Coronary atherosclerosis of unspecified type of vessel, [place] or graft 414.00 Active Medications Medication Code System Code Instructions Start Date End Date Status Dosage Levemir Flexpen [facility] [address]-29 100 unit/mL (3 m L) Subcutaneous- ICD10-E 11.9 Once a day Jul 24, 2014 30 Units NovoLog Flexpen [facility] [address]-11 100 UNIT/ML Subc utaneous 3 times a day before meals INJECT 15 UNITS Results No Known Results Summary Purpose eClinicalWorks Submission
--- OUTSIDE RECORDS SUMMARY | 2020-04-18 19:39 | XMS REPORT ---
Author Author Carroll CUNHA [facility] eClinicalWorks Address Unknown Phone Unavailable Care Team Providers Care Graduate Studies Dean Name Role Phone JS CUNHA Unavailable Allergies No Known Allergies Problems Problem Type Condition Code Onset Dates Condition Statu s Problem Diabetes E11.9 Active Problem Coronary disease I25.10 Active Problem Type 2 diabetes mellitus without complications E11.9 Active Problem Lower limb amputation, above knee V49.76 Active Problem Coronary atherosclerosis of unspecified type of vessel, [place] or graft 414.00 Active Medications No Known Medications Results No Known Results Summary Purpose eClinicalWorks Submission
--- OUTSIDE RECORDS SUMMARY | 2020-04-18 19:39 | XMS REPORT ---
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 733840682 Problem Chronic kidney disease, stage IV (severe) N18.4 Active [id number] ALLERGIES No Known Allergies ENCOUNTERS Encounter Location Date Diagnosis [place] [id number] [place] [id number] [place] [phone] March, Type 2 diabetes mellitus wit h diabetic nephropathy E11.21 ; custodial current use of insulin Z79.4 ; Chronic kidney disease, stage IV (severe) N18.4 ; Secondary hyperparathyroidism of renal origin N25.81 ; Coronary disease I25.10 and Gastroesophageal reflux disease, esophagitis presence not specified K21.9 [facility] [address] [place] [id number] [address] [place] [id number] Nov, Type 2 diabetes mellitus wit hout complications E11.9 ; Coronary disease I25.10 and Essential hypertension I10 [facility] [address] [place] [id number] [address] [place] [phone] May, Diabetes E11.9 [facility] [address] [place] [id number] [address] [place] [address] 30 Apr, 2017 Type 2 diabetes mellitus wit hout complications E11.9 and Arthritis M19.90 [facility] [address] [id number] [address] [place] [address] March, Diabetes E11.9 [facility] [address] [id number] [address] [place] [address] March, Diabetes E11.9 [facility] [address] [id number] [address] [place] [id number] March, [facility] [address] [id number] [address] [place] [phone] Feb, Diabetes E11.9 [facility] [address] [id number] [address] [place] [address] Feb, Diabetes E11.9 [facility] [address] [id number] [address] [place] [address] Jan, [facility] [address] [id number] [address] [place] [id number] Jan, Diabetes E11.9 [facility] [address] [id number] [address] [place] [phone] Jan, Type 2 diabetes mellitus wit hout complications E11.9 [facility] [address] [id number] [address] [place] [id number] Oct, [facility] [address] [id number] [address] [place] [phone] Oct, Gastroesophageal reflux dise ase, esophagitis presence not specified K21.9 [facility] [address] [id number] [address] [place] [phone] Sep, [facility] [address] [facility] [id number] [address] [place] [phone] Sep, [facility] [address] [id number] [address] [place] [id number] Sep, [facility] [address] [id number] [address] [place] [address], [place] [address] Aug, [facility] [address] [id number] [address] [place] [address], [place] [address] Aug, Diabetes E11.9 and Encounter for immunization Z23 [facility] [address] [id number] [address] [place] [address], [place] [address] Aug, [facility] [address] [id number] [address] [place] [address], [place] [address] Jul, [facility] [address] [id number] [address] [place] [address], [place] [address] Jun, [facility] [address] [id number] [address] [place] [address], [place] [address] May, Diabetes E11.9 [facility] [address] [id number] [address] [place] [address], [place] [address] Apr, [facility] [address] [id number] [address] [place] [address], [place] [address] Apr, [facility] [address] [id number] [address] [place] [address], [place] [address] March, [facility] [address] [id number] [address] [place] [address], [place] [address] March, [facility] [address] [id number] [address] [place] [address], [place] [address] Feb, [facility] [address] [id number] [address] [place] [address], [place] [address] Feb, [facility] [address] [id number] [address] [place] [address], [place] [address] 18 Feb, 2016 [facility] [address] [id number] [address] [place] [address], [place] [address] 14 Feb, 2016 [facility] [address] [id number] [address] [place] [address], [place] [address] 12 Feb, 2016 [facility] [address] [id number] [address] [place] [address] Feb, Type 2 diabetes mellitus wit hout complications E11.9 [facility] [address] [id number] [address] [place] [address] Feb, [facility] [address] [id number] [address] [place] [address] Jan, [facility] [address] [id number] [address] [place] [address] Dec, Eustachian tube dysfunction H69.80 and Diabetes E11.9 [facility] [address] [id number] [address] [place] [phone] Dec, [facility] [address] [facility] [id number] [address] [place] [phone] Dec, [facility] [address] [facility] [id number] [address] [place] [id number] Dec, Type 2 diabetes mellitus wit hout complications E11.9 ; Atherosclerotic heart disease of [place] coronary artery without angina pectoris I25.10 and Diabetes E11.9 [facility] [address] [facility] [id number] [address] [place] [phone] Dec, [facility] [address] [facility] [id number] [address] [place] [id number] Dec, CHF (congestive heart failur e) I50.9 [facility] [address] [facility] [id number] [address] [place] [address] Nov, Diabetes E11.9 and Coronary disease I25.10 [facility] [address] [id number] [address] [place] [address] Oct, [facility] [address] [facility] [id number] [address] [place] [address] Aug, [facility] [address] [facility] [id number] [address] [place] [address] Jul, [facility] [address] [id number] [address] [place] [address] Jul, DM w/o complication type II 250.00 and Spontaneous bleeding of digits 459.0 [facility] [address] [id number] [address] [place] [address] Apr, [facility] [address] [facility] [id number] [address] [place] [address] Apr, [facility] [address] [id number] [address] [place] [phone] March, CHF (congestive heart failur e) 428.0 and Coronary atherosclerosis of unspecified type of vessel, [place] or graft 414.00 [facility] [address] [id number] [address] [place] [id number] March, [facility] [address] [facility] [id number] [address] [place] [address] Feb, [facility] [address] [facility] [id number] [address] [place] [phone] Feb, [facility] [address] [id number] [address] [place] [phone] Jan, [facility] [address] [facility] [id number] [address] [place] [phone] Jan, [facility] [address] [facility] [id number] [address] [place] [address] Dec, [facility] [address] [facility] [id number] [address] [place] [address] Dec, [facility] [address] [id number] [address] [place] [phone] Dec, [facility] [address] [facility] [id number] [address] [place] [id number] Dec, [facility] [address] [facility] [id number] [address] [place] [phone] Dec, [facility] [address] [id number] [address] [place] [address], [place] [address] Dec, [facility] [address] [id number] [address] [place] [address], [place] [address] Nov, [facility] [address] [id number] [address] [place] [address], [place] [address] Nov, [facility] [address] [id number] [address] [place] [address], [place] [address] Oct, [facility] [address] [id number] [address] [place] [address], [place] [address] Sep, [facility] [address] [id number] [address] [place] [address], [place] [address] Sep, [facility] [address] [id number] [address] [place] [address], [place] [address] Sep, [facility] [address] [id number] [address] [place] [address], [place] [address] Sep, [facility] [address] [id number] [address] [place] [address], [place] [address] Jul, [facility] [address] [id number] [address] [place] [address], [place] [address] Jul, [facility] [address] [id number] [address] [place] [address], [place] [address] Jul, [facility] [address] [id number] [address] [place] [address], [place] [address] Jul, [facility] [address] [id number] [address] [place] [address], [place] [address] Jun, [facility] [address] [id number] [address] [place] [address], [place] [address] Jun, [facility] [address] [id number] [address] [place] [address], [place] [address] Jun, [facility] [address] [id number] [address] [place] [address], [place] [address] Jun, [facility] [address] [id number] [address] [place] [address], [place] [address] Apr, [facility] [address] [id number] [address] [place] [address], [place] [address] Apr, [facility] [address] [id number] [address] [place] [address], [place] [address] Apr, [facility] [address] [id number] [address] [place] [address], [place] [address] Apr, [facility] [address] [id number] [address] [place] [address], [place] [address] Dec, [facility] [address] [id number] [address] [place] [address], [place] [address] Dec, [facility] [address] [id number] [address] [place] [address], [place] [address] Dec, [facility] [address] [id number] [address] [place] [address], [place] [address] Dec, [facility] [address] [id number] [address] [place] [address], [place] [address] Dec, [facility] [address] [id number] [address] [place] [address], [place] [address] Dec, [facility] [address] [id number] [address] [place] [address], [place] [address] Nov, [facility] [address] [id number] [address] [place] [address], [place] [address] Nov, [facility] [address] [id number] [address] [place] [address], [place] [address] Sep, [facility] [address] [id number] [address] [place] [address], [place] [address] Sep, [facility] [address] [id number] [address] [place] [address], [place] [address] Sep, [facility] [address] [id number] [address] [place] [address], [place] [address] Sep, [facility] [address] [id number] [address] [place] [address], [place] [address] Sep, [facility] [address] [id number] [address] [place] [address], [place] [address] Aug, [facility] [address] [id number] [address] [place] [address], [place] [address] Aug, [facility] [address] [id number] [address] [place] [address], [place] [address] Aug, [facility] [address] [id number] [address] [place] [address], [place] [address] Aug, [facility] [address] [id number] [address] [place] [address], [place] [address] Jul, [facility] [address] [id number] [address] [place] [address], [place] [address] Jun, [facility] [address] [id number] [address] [place] [address], [place] [address] May, [facility] [address] [id number] [address] [place] [address], [place] [address] May, [facility] [address] [id number] [address] [place] [address], [place] [address] May, [facility] [address] [id number] [address] [place] [address], [place] [address] Apr, [facility] [address] [id number] [address] [place] [address], [place] [address] Apr, [facility] [address] [id number] [address] [place] [address], [place] [address] March, [facility] [address] [id number] [address] [place] [address], [place] [address] March, [facility] [address] [id number] [address] [place] [address], [place] [address] 18 Feb, 2013 [facility] [address] [id number] [address] [place] [address], [place] [address] 15 Feb, 2013 [facility] [address] [id number] [address] [place] [address], [place] [address] 10 Feb, 2013 [facility] [address] [id number] [address] [place] [address], [place] [address] Jan, [facility] [address] [id number] [address] [place] [address], [place] [address] Jan, [facility] [address] [id number] [address] [place] [address], [place] [address] Jan, [facility] [address] [id number] [address] [place] [address], [place] [address] Dec, [facility] [address] [id number] [address] [place] [address], [place] [address] Dec, [facility] [address] [id number] [address] [place] [address], [place] [address] Dec, [facility] [address] [id number] [address] [place] [address], [place] [address] Nov, [facility] [address] [id number] [address] [place] [address], [place] [address] Nov, [facility] [address] [id number] [address] [place] [address], [place] [address] Nov, [facility] [address] [id number] [address] [place] [address], [place] [address] Nov, [facility] [address] [id number] [address] [place] [address], [place] [address] Nov, [facility] [address] [id number] [address] [place] [address], [place] [address] Nov, [facility] [address] [id number] [address] [place] [address], [place] [address] Oct, [facility] [address] [id number] [address] [place] [address], [place] [address] Oct, [facility] [address] [id number] [address] [place] [address], [place] [address] Oct, [facility] [address] [id number] [address] [place] [address], [place] [address] Oct, [facility] [address] [id number] [address] [place] [address], [place] [address] Sep, [facility] [address] [id number] [address] [place] [address], [place] [address] Sep, [facility] [address] [id number] [address] [place] [address], [place] [address] Sep, [facility] [address] [id number] [address] [place] [address], [place] [address] Sep, [facility] [address] [id number] [address] [place] [address], [place] [address] Aug, [facility] [address] [id number] [address] [place] [address], [place] [address] Jul, [facility] [address] [id number] [address] [place] [address], [place] [address] Jul, [facility] [address] [id number] [address] [place] [address], [place] [address] Jul, [facility] [address] [id number] [address] [place] [address], [place] [address] Jun, [facility] [address] [id number] [address] [place] [address], [place] [address] Jun, [facility] [address] [id number] [address] [place] [address], [place] [address] Jun, [facility] [address] [id number] [address] [place] [address], [place] [address] May, [facility] [address] [id number] [address] [place] [address], [place] [address] May, [facility] [address] [id number] [address] [place] [address], [place] [address] 19 Apr, 2012 [facility] [address] [id number] [address] [place] [address], [place] [address] 15 Apr, 2012 [facility] [address] [id number] [address] [place] [address], [place] [address] 13 Apr, 2012 [facility] [address] [id number] [address] [place] [address], [place] [address] Apr, [facility] [address] [id number] [address] [place] [address], [place] [address] March, [facility] [address] [id number] [address] [place] [address], [place] [id number] March, [facility] [address] [id number] [address] [place] [address], [place] [id number] March, [facility] [address] [id number] [address] [place] [address], [place] [address] Jan, [facility] [address] [id number] [address] [place] [address], [place] [address] Jan, [facility] [address] [id number] [address] [place] [address], [place] [address] Jan, [facility] [address] [id number] [address] [place] [address], [place] [id number] 16 Nov, 2011 [facility] [address] [id number] [address] [place] [address], [place] [address] Nov, [facility] [address] [id number] [address] [place] [address], [place] [address] Nov, [facility] [address] [id number] [address] [place] [address], [place] [address] Nov, [facility] [address] [id number] [address] [place] [address], [place] [address] Oct, [facility] [address] [id number] [address] [place] [id number] Oct, [facility] [address] [id number] [address] [place] [id number] Oct, [facility] [address] [id number] [address] [place] [phone] Oct, [facility] [address] [id number] [address] [place] [phone] Oct, [facility] [address] [id number] [address] [place] [phone] Oct, [facility] [address] [id number] [address] [place] [phone] Oct, IMMUNIZATIONS No Known Immunizations SOCIAL HISTORY Never Assessed REASON FOR VISIT Diabetes WB-MA PLAN OF CARE Activity Details Follow Up 4 Months Reason: VITAL SIGNS Height 69 in 2018-03-12 Weight 220 lbs 2018-03-12 Temperature 97.8 degrees Fahrenheit 2018-03-12 Heart Rate 72 bpm 2018-03-12 Respiratory Rate 18 2018-03-12 BMI 32.48 kg/m2 2018-03-12 Blood pressure systolic 118 mmHg 2018-03-12 Blood pressure diastolic 74 mmHg 2018-03-12 MEDICATIONS Medication Instructions Dosage Frequency Start Date End Date Duration S tatus Plavix 75 MG Orally Once a day 1 tablet 24h Active Levemir FlexTouch 100 UNIT/ML Subcutaneous Once a day 65 units 24h Active Victoza 18 MG/3ML Subcutaneous Once a day 1.8 mg 24h Jan, Active Ramipril 5 MG Orally Once a day 1 capsule 24h Active NovoLog Flexpen 100 UNIT/ML Subcutaneous 3 times a day 40 units 8h Active Pantoprazole Sodium 40MG TAKE ONE TABLET BY MOUTH ONCE DAILY Active Simvastatin 40 MG Orally Once a day 1 tablet in the evening 24h Active Nortriptyline HCl 50 MG Orally Once a day 1-2 capsule at bedtime 24h Active Tamsulosin HCl 0.4 MG Orally Once a day 1 capsule 24h Active Allopurinol 100 MG Orally Once a day 1 tablet 24h Active Fish Oil 1200 MG Orally twice a day 1 capsule 12h Active NovoFine 32G X 6 MM subcutaneously Once a day 1 pen needle 24h 24 2016 Active Carvedilol 25 MG TAKE ONE TABLET BY MOUTH TWICE DAILY Active Aspir-81 81 MG Orally Once a day 1 tablet 24h Active RESULTS Name Result Date Reference Range A1C (IN HOUSE) 2018-03-12 A1C IN HOUSE 7.5 4.3 - 5.6 % Previous A1c 7.4 Lot [id number] Exp date 12/2019 PROCEDURES Procedure Date Ordered Result Body Site GLYCATED HEMOGLOBIN TEST March 12, 2018 [facility] VISIT ESTABLISHED PATIENT March 12, 2018 INSTRUCTIONS MEDICATIONS ADMINISTERED No Known Medications MEDICAL (GENERAL) HISTORY Type Description Date Medical History chronic obstructive pulmonary disease (C OPD) Medical History diabetes mellitus Medical History Hypertension Medical History Hyperlipidemia Medical History Stroke syndrome 2006 Surgical History Left leg amputation 1998 Surgical History Cardiothoracic surgery Defibrillator 200 6 Hospitalization History surgeries
--- OUTSIDE RECORDS SUMMARY | 2020-04-18 19:39 | XMS REPORT ---
Author Author Carroll CUNHA Organization [facility] Address [address] [place] [address] Care Team Providers Care Telescope Maintenance Name Role Phone JS CUNHA Unavailable PROBLEMS Type Condition ICD9-CM Code GCT68-RA Code Onset Dates Condition S tatus SNOMED Code Problem Arthritis M19.90 Active 6093453 Problem Diabetes E11.9 Active 606068759 Problem Type 2 diabetes mellitus without complications E11 .9 Active 678409209 Problem Coronary disease I25.10 Active 537 65557 Problem Gastroesophageal reflux disease, esophagitis pre sence not specified K21.9 Active 957498374 Problem Anxiety F41.9 Active 51257278 Problem 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 81 Active 62074210 Problem half-way current use of insulin Z79.4 Active 289167980 ALLERGIES No Information ENCOUNTERS Encounter Location Date Diagnosis [place] [address] [place] [id number] [place] [id number] Jul, Friction blister of right lo wer extremity, initial encounter S80.821A [place] [address] [place] [id number] [address] [place] [address] Jul, Localized edema R60.0 ; Type 2 diabetes mellitus with diabetic nephropathy E11.21 ; Coronary disease I25.10 and Anxiety F41.9 [place] [address] [place] [id number] [place] [address] Jun, [place] [address] [place] [id number] [place] [phone] March, Type 2 diabetes mellitus wit h diabetic nephropathy E11.21 ; 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.4 ; Chronic kidney disease, stage IV (severe) N18.4 ; Secondary hyperparathyroidism of renal origin N25.81 ; Coronary disease I25.10 and Gastroesophageal reflux disease, esophagitis presence not specified K21.9 [facility] [address] [facility] [id number] [address] [place] [phone] Nov, Type 2 diabetes mellitus wit hout complications E11.9 ; Coronary disease I25.10 and Essential hypertension I10 [facility] [address] [id number] [address] [place] [id number] May, Diabetes E11.9 [facility] [address] [facility] [id number] [address] [place] [id number] Apr, Type 2 diabetes mellitus wit hout complications E11.9 and Arthritis M19.90 [facility] [address] [facility] [id number] [address] [place] [phone] March, Diabetes E11.9 [facility] [address] [facility] [id number] [address] [place] [phone] March, Diabetes E11.9 [facility] [address] [facility] [id number] [address] [place] [phone] March, [facility] [address] [facility] [id number] [address] [place] [id number] Feb, Diabetes E11.9 [facility] [address] [facility] [id number] [address] [place] [phone] Feb, Diabetes E11.9 [facility] [address] [id number] [address] [place] [address] Jan, [facility] [address] [id number] [address] [place] [id number] Jan, Diabetes E11.9 [facility] [address] [facility] [id number] [address] [place] [address] Jan, Type 2 diabetes mellitus wit hout complications E11.9 [facility] [address] [facility] [id number] [address] [place] [phone] Oct, [facility] [address] [id number] [address] [place] [phone] Oct, Gastroesophageal reflux dise ase, esophagitis presence not specified K21.9 [facility] [address] [id number] [address] [place] [phone] Sep, [facility] [address] [id number] [address] [place] [phone] Sep, [facility] [address] [id number] [address] [place] [id number] Sep, [facility] [address] [id number] [address] [place] [id number] Aug, [facility] [address] [id number] [address] [place] [address] Aug, Diabetes E11.9 and Encounter for immunization Z23 [facility] [address] [id number] [address] [place] [address] Aug, [facility] [address] [id number] [address] [place] [id number] Jul, [facility] [address] [id number] [address] [place] [phone] Jun, [facility] [address] [id number] [address] [place] [phone] May, Diabetes E11.9 [facility] [address] [id number] [address] [place] [phone] Apr, [facility] [address] [id number] [address] [place] [phone] Apr, [facility] [address] [id number] [address] [place] [phone] March, [facility] [address] [id number] [address] [place] [phone] March, [facility] [address] [id number] [address] [place] [phone] Feb, [facility] [address] [id number] [address] [place] [phone] Feb, [facility] [address] [id number] [address] [place] [id number] Feb, [facility] [address] [id number] [address] [place] [phone] Feb, [facility] [address] [id number] [address] [place] [phone] Feb, [facility] [address] [id number] [address] [place] [id number] Feb, Type 2 diabetes mellitus wit hout complications E11.9 [facility] [address] [facility] [id number] [address] [place] [phone] Feb, [facility] [address] [id number] [address] [place] [phone] Jan, [facility] [address] [id number] [address] [place] [address] Dec, Eustachian tube dysfunction H69.80 and Diabetes E11.9 [facility] [address] [id number] [address] [place] [phone] Dec, [facility] [address] [id number] [address] [place] [phone] Dec, [facility] [address] [id number] [address] [place] [address] Dec, Type 2 diabetes mellitus wit hout complications E11.9 ; Atherosclerotic heart disease of [place] coronary artery without angina pectoris I25.10 and Diabetes E11.9 [facility] [address] [id number] [address] [place] [address] Dec, [facility] [address] [facility] [id number] [address] [place] [phone] 05 Dec, 2015 CHF (congestive heart failur e) I50.9 [facility] [address] [facility] [id number] [address] [place] [address] Nov, Diabetes E11.9 and Coronary disease I25.10 [facility] [address] [id number] [address] [place] [id number] Oct, [facility] [address] [id number] [address] [place] [phone] Aug, [facility] [address] [id number] [address] [place] [address] Jul, [facility] [address] [id number] [address] [place] [address] Jul, DM w/o complication type II 250.00 and Spontaneous bleeding of digits 459.0 [facility] [address] [facility] [id number] [address] [place] [address] Apr, [facility] [address] [id number] [address] [place] [phone] Apr, [facility] [address] [facility] [id number] [address] [place] [phone] March, CHF (congestive heart failur e) 428.0 and Coronary atherosclerosis of unspecified type of vessel, [place] or graft 414.00 [facility] [address] [facility] [id number] [address] [place] [phone] March, [facility] [address] [id number] [address] [place] [address] Feb, [facility] [address] [id number] [address] [place] [phone] Feb, [facility] [address] [facility] [id number] [address] [place] [phone] Jan, [facility] [address] [facility] [id number] [address] [place] [phone] Jan, [facility] [address] [facility] [id number] [address] [place] [phone] Dec, 2014 [facility] [address] [id number] [address] [place] [address], [place] [address] Dec, 2014 [facility] [address] [id number] [address] [place] [address], [place] [address] Dec, 2014 [facility] [address] [id number] [address] [place] [address], [place] [address] Dec, 2014 [facility] [address] [id number] [address] [place] [address], [place] [address] Dec, [facility] [address] [id number] [address] [place] [address], [place] [address] Dec, [facility] [address] [id number] [address] [place] [address], [place] [address] Nov, [facility] [address] [id number] [address] [place] [address], [place] [address] Nov, [facility] [address] [id number] [address] [place] [address], [place] [address] Oct, [facility] [address] [id number] [address] [place] [address], [place] [address] Sep, [facility] [address] [id number] [address] [place] [address], [place] [address] Sep, [facility] [address] [id number] [address] [place] [address], [place] [address] Sep, [facility] [address] [id number] [address] [place] [address], [place] [address] Sep, [facility] [address] [id number] [address] [place] [address], [place] [address] 18 Jul, 2014 [facility] [address] [id number] [address] [place] [address], [place] [address] 18 Jul, 2014 [facility] [address] [id number] [address] [place] [address], [place] [address] Jul, [facility] [address] [id number] [address] [place] [address], [place] [address] Jul, [facility] [address] [id number] [address] [place] [address], [place] [address] Jun, [facility] [address] [id number] [address] [place] [address], [place] [address] Jun, [facility] [address] [id number] [address] [place] [address], [place] [address] Jun, [facility] [address] [id number] [address] [place] [address], [place] [address] Jun, [facility] [address] [id number] [address] [place] [address], [place] [address] Apr, [facility] [address] [id number] [address] [place] [address], [place] [address] Apr, [facility] [address] [id number] [address] [place] [address], [place] [address] Apr, [facility] [address] [id number] [address] [place] [address], [place] [address] Apr, [facility] [address] [id number] [address] [place] [address], [place] [address] Dec, [facility] [address] [id number] [address] [place] [address], [place] [address] Dec, [facility] [address] [id number] [address] [place] [address], [place] [address] Dec, [facility] [address] [id number] [address] [place] [address], [place] [address] Dec, [facility] [address] [id number] [address] [place] [address], [place] [address] Dec, [facility] [address] [id number] [address] [place] [address], [place] [address] Dec, [facility] [address] [id number] [address] [place] [address], [place] [address] Nov, [facility] [address] [id number] [address] [place] [address], [place] [address] Nov, [facility] [address] [id number] [address] [place] [address], [place] [address] Sep, [facility] [address] [id number] [address] [place] [address], [place] [address] Sep, [facility] [address] [id number] [address] [place] [address], [place] [address] Sep, [facility] [address] [id number] [address] [place] [address], [place] [address] Sep, [facility] [address] [id number] [address] [place] [address], [place] [address] Sep, [facility] [address] [id number] [address] [place] [address], [place] [address] Aug, [facility] [address] [id number] [address] [place] [address], [place] [address] Aug, [facility] [address] [id number] [address] [place] [address], [place] [address] Aug, [facility] [address] [id number] [address] [place] [address], [place] [address] Aug, [facility] [address] [id number] [address] [place] [address], [place] [address] Jul, [facility] [address] [id number] [address] [place] [address], [place] [address] Jun, [facility] [address] [id number] [address] [place] [address], [place] [address] May, [facility] [address] [id number] [address] [place] [address], [place] [address] May, [facility] [address] [id number] [address] [place] [address], [place] [address] May, [facility] [address] [id number] [address] [place] [address], [place] [address] Apr, [facility] [address] [id number] [address] [place] [address], [place] [address] Apr, [facility] [address] [id number] [address] [place] [address], [place] [address] March, [facility] [address] [id number] [address] [place] [address], [place] [address] March, [facility] [address] [id number] [address] [place] [address], [place] [address] Feb, [facility] [address] [id number] [address] [place] [address], [place] [address] Feb, [facility] [address] [id number] [address] [place] [address], [place] [address] Feb, [facility] [address] [id number] [address] [place] [address], [place] [address] Jan, [facility] [address] [id number] [address] [place] [address], [place] [address] Jan, [facility] [address] [id number] [address] [place] [address], [place] [address] Jan, [facility] [address] [id number] [address] [place] [address], [place] [address] Dec, [facility] [address] [id number] [address] [place] [address], [place] [address] Dec, [facility] [address] [id number] [address] [place] [address], [place] [address] Dec, [facility] [address] [id number] [address] [place] [address], [place] [address] Nov, [facility] [address] [id number] [address] [place] [address], [place] [address] Nov, [facility] [address] [id number] [address] [place] [address], [place] [address] 14 Nov, 2012 [facility] [address] [id number] [address] [place] [address], [place] [address] Nov, [facility] [address] [id number] [address] [place] [address], [place] [address] Nov, [facility] [address] [id number] [address] [place] [address], [place] [address] Nov, [facility] [address] [id number] [address] [place] [address], [place] [address] Oct, [facility] [address] [id number] [address] [place] [address], [place] [address] Oct, [facility] [address] [id number] [address] [place] [address], [place] [address] Oct, [facility] [address] [id number] [address] [place] [address], [place] [address] Oct, [facility] [address] [id number] [address] [place] [address], [place] [address] Sep, [facility] [address] [id number] [address] [place] [address], [place] [address] Sep, [facility] [address] [id number] [address] [place] [address], [place] [address] Sep, [facility] [address] [id number] [address] [place] [address], [place] [address] Sep, [facility] [address] [id number] [address] [place] [address], [place] [address] Aug, [facility] [address] [id number] [address] [place] [address], [place] [address] 24 Jul, 2012 [facility] [address] [id number] [address] [place] [address], [place] [address] 19 Jul, 2012 [facility] [address] [id number] [address] [place] [address], [place] [address] 11 Jul, 2012 [facility] [address] [id number] [address] [place] [address], [place] [address] Jun, [facility] [address] [id number] [address] [place] [address], [place] [address] Jun, [facility] [address] [id number] [address] [place] [address], [place] [address] Jun, [facility] [address] [id number] [address] [place] [address], [place] [address] May, [facility] [address] [id number] [address] [place] [address], [place] [address] May, [facility] [address] [id number] [address] [place] [address], [place] [address] Apr, [facility] [address] [id number] [address] [place] [address], [place] [address] Apr, [facility] [address] [id number] [address] [place] [address], [place] [address] Apr, [facility] [address] [id number] [address] [place] [address], [place] [address] Apr, [facility] [address] [id number] [address] [place] [address], [place] [address] March, [facility] [address] [id number] [address] [place] [address], [place] [address] March, [facility] [address] [id number] [address] [place] [address], [place] [address] March, [facility] [address] [id number] [address] [place] [address], [place] [address] Jan, [facility] [address] [id number] [address] [place] [address], [place] [address] Jan, [facility] [address] [id number] [address] [place] [address], [place] [address] Jan, [facility] [address] [id number] [address] [place] [address], [place] [address] Nov, [facility] [address] [id number] [address] [place] [phone] Nov, [facility] [address] [id number] [address] [place] [phone] Nov, [facility] [address] [id number] [address] [place] [phone] Nov, [facility] [address] [id number] [address] [place] [phone] Oct, [facility] [address] [id number] [address] [place] [phone] Oct, [facility] [address] [id number] [address] [place] [phone] Oct, [facility] [address] [id number] [address] [place] [phone] Oct, [facility] [address] [id number] [address] [place] [id number] Oct, [facility] [address] [id number] [address] [place] [address] Oct, [facility] [address] [id number] [address] [place] [phone] Oct, IMMUNIZATIONS No Known Immunizations SOCIAL HISTORY Never Assessed REASON FOR VISIT Requests return call PLAN OF CARE VITAL SIGNS MEDICATIONS No [...]
--- OUTSIDE RECORDS SUMMARY | 2020-04-18 19:39 | XMS REPORT ---
Author Author Carroll CUNHA [facility] eClinicalWorks Address Unknown Phone Unavailable Care Team Providers Care Securities Compliance Examiner Name Role Phone JS CUNHA Unavailable Allergies No Known Allergies Problems Problem Type Condition Code Onset Dates Condition Statu s Problem Diabetes E11.9 Active Problem Coronary disease I25.10 Active Problem Type 2 diabetes mellitus without complications E11.9 Active Problem Lower limb amputation, above knee V49.76 Active Problem Coronary atherosclerosis of unspecified type of vessel, [place] or graft 414.00 Active Medications No Known Medications Results No Known Results Summary Purpose eClinicalWorks Submission
--- OUTSIDE RECORDS SUMMARY | 2020-04-18 19:40 | XMS REPORT ---
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 Name Role Phone JS CUNHA Unavailable Allergies No Known Allergies Problems Problem Type Condition Code Onset Dates Condition Statu s Problem Diabetes E11.9 Active Problem Coronary disease I25.10 Active Problem Type 2 diabetes mellitus without complications E11.9 Active Problem Lower limb amputation, above knee V49.76 Active Problem Coronary atherosclerosis of unspecified type of vessel, [place] or graft 414.00 Active Medications Medication Code System Code Instructions Start Date End Date Status Dosage NovoLog Flexpen [facility] [id number] 100 UNIT/ML Subc utaneous 3 times a day before meals INJECT 25 UNITS Levemir Flexpen [facility] [address]-11 100 unit/mL (3 mL) ICD10 - E11.9- twice a day Jul 24, 2014 27 Units Results No Known Results Summary Purpose eClinicalWorks Submission
--- OUTSIDE RECORDS SUMMARY | 2020-04-18 19:40 | XMS REPORT ---
Author Author Carroll CUNHA [facility] eClinicalWorks Address Unknown Phone Unavailable Care Team Providers Care Clinical Systems Educator Name Role Phone JS CUNHA Unavailable Allergies No Known Allergies Problems Problem Type Condition Code Onset Dates Condition Statu s Problem Diabetes E11.9 Active Problem Coronary disease I25.10 Active Problem Type 2 diabetes mellitus without complications E11.9 Active Problem Lower limb amputation, above knee V49.76 Active Problem Coronary atherosclerosis of unspecified type of vessel, [place] or graft 414.00 Active Medications No Known Medications Results No Known Results Summary Purpose eClinicalWorks Submission
--- OUTSIDE RECORDS SUMMARY | 2020-04-18 19:40 | XMS REPORT ---
Author Author Carroll CUNHA [facility] eClinicalWorks Address Unknown Phone Unavailable Care Team Providers Care Pharmacy Picking Tech Name Role Phone JS CUNHA Unavailable Allergies No Known Allergies Problems Problem Type Condition Code Onset Dates Condition Statu s Problem Diabetes E11.9 Active Problem Coronary disease I25.10 Active Problem Type 2 diabetes mellitus without complications E11.9 Active Problem Lower limb amputation, above knee V49.76 Active Problem Coronary atherosclerosis of unspecified type of vessel, [place] or graft 414.00 Active Medications Medication Code System Code Instructions Start Date End Date Status Dosage Levemir Flexpen [facility] [address]-06 100 unit/mL (3 m L) Subcutaneous- ICD10-E 11.9 Once a day Jul 24, 2014 25 Units Results No Known Results Summary Purpose eClinicalWorks Submission
--- OUTSIDE RECORDS SUMMARY | 2020-04-18 19:40 | XMS REPORT ---
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 Active 599739565 Problem Chronic kidney disease, stage IV (severe) N18.4 Active [id number] ALLERGIES No Known Allergies ENCOUNTERS Encounter Location Date Diagnosis [place] [id number] [place] [id number] [address] [place] [address] March, Type 2 diabetes mellitus wit h diabetic nephropathy E11.21 ; FDC current use of insulin Z79.4 ; Chronic kidney disease, stage IV (severe) N18.4 ; Secondary hyperparathyroidism of renal origin N25.81 ; Coronary disease I25.10 and Gastroesophageal reflux disease, esophagitis presence not specified K21.9 [facility] [address] [place] [id number] [address] [place] [id number] Nov, Type 2 diabetes mellitus wit hout complications E11.9 ; Coronary disease I25.10 and Essential hypertension I10 [facility] [address] [place] [id number] [address] [place] [id number] May, Diabetes E11.9 [facility] [address] [place] [id number] [address] [place] [id number] 30 Apr, 2017 Type 2 diabetes mellitus wit hout complications E11.9 and Arthritis M19.90 [facility] [address] [id number] [address] [place] [phone] March, Diabetes E11.9 [facility] [address] [id number] [address] [place] [id number] March, Diabetes E11.9 [facility] [address] [id number] [address] [place] [id number] March, [facility] [address] [id number] [address] [place] [phone] Feb, Diabetes E11.9 [facility] [address] [id number] [address] [place] [id number] Feb, Diabetes E11.9 [facility] [address] [id number] [address] [place] [phone] Jan, [facility] [address] [id number] [address] [place] [phone] Jan, Diabetes E11.9 [facility] [address] [id number] [address] [place] [phone] Jan, Type 2 diabetes mellitus wit hout complications E11.9 [facility] [address] [id number] [address] [place] [phone] Oct, [facility] [address] [id number] [address] [place] [phone] Oct, Gastroesophageal reflux dise ase, esophagitis presence not specified K21.9 [facility] [address] [id number] [address] [place] [phone] Sep, [facility] [address] [facility] [id number] [address] [place] [phone] Sep, [facility] [address] [id number] [address] [place] [phone] Sep, [facility] [address] [id number] [address] [place] [address], [place] [address] Aug, [facility] [address] [id number] [address] [place] [address], [place] [address] Aug, Diabetes E11.9 and Encounter for immunization Z23 [facility] [address] [id number] [address] [place] [address], [place] [address] Aug, [facility] [address] [id number] [address] [place] [address], [place] [address] Jul, [facility] [address] [id number] [address] [place] [address], [place] [address] Jun, [facility] [address] [id number] [address] [place] [address], [place] [address] May, Diabetes E11.9 [facility] [address] [id number] [address] [place] [address], [place] [address] Apr, [facility] [address] [id number] [address] [place] [address], [place] [address] Apr, [facility] [address] [id number] [address] [place] [address], [place] [address] March, [facility] [address] [id number] [address] [place] [address], [place] [address] March, [facility] [address] [id number] [address] [place] [address], [place] [address] Feb, [facility] [address] [id number] [address] [place] [address], [place] [address] Feb, [facility] [address] [id number] [address] [place] [address], [place] [address] 18 Feb, 2016 [facility] [address] [id number] [address] [place] [address], [place] [address] 14 Feb, 2016 [facility] [address] [id number] [address] [place] [address], [place] [address] 12 Feb, 2016 [facility] [address] [id number] [address] [place] [id number] Feb, Type 2 diabetes mellitus wit hout complications E11.9 [facility] [address] [id number] [address] [place] [id number] Feb, [facility] [address] [id number] [address] [place] [id number] Jan, [facility] [address] [id number] [address] [place] [address] Dec, Eustachian tube dysfunction H69.80 and Diabetes E11.9 [facility] [address] [id number] [address] [place] [phone] Dec, [facility] [address] [facility] [id number] [address] [place] [phone] Dec, [facility] [address] [facility] [id number] [address] [place] [address] Dec, Type 2 diabetes mellitus wit hout complications E11.9 ; 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 and Diabetes E11.9 [facility] [address] [facility] [id number] [address] [place] [id number] Dec, [facility] [address] [facility] [id number] [address] [place] [id number] Dec, CHF (congestive heart failur e) I50.9 [facility] [address] [facility] [id number] [address] [place] [id number] Nov, Diabetes E11.9 and Coronary disease I25.10 [facility] [address] [id number] [address] [place] [id number] Oct, [facility] [address] [facility] [id number] [address] [place] [id number] Aug, [facility] [address] [facility] [id number] [address] [place] [id number] Jul, [facility] [address] [id number] [address] [place] [id number] Jul, DM w/o complication type II 250.00 and Spontaneous bleeding of digits 459.0 [facility] [address] [id number] [address] [place] [phone] Apr, [facility] [address] [facility] [id number] [address] [place] [id number] Apr, [facility] [address] [id number] [address] [place] [address] March, CHF (congestive heart failur e) 428.0 and Coronary atherosclerosis of unspecified type of vessel, rosebud or graft 414.00 [facility] [address] [id number] [address] [place] [id number] March, [facility] [address] [facility] [id number] [address] [place] [phone] Feb, [facility] [address] [facility] [id number] [address] [place] [id number] Feb, [facility] [address] [id number] [address] [place] [id number] Jan, [facility] [address] [facility] [id number] [address] [place] [phone] Jan, [facility] [address] [facility] [id number] [address] [place] [phone] Dec, [facility] [address] [facility] [id number] [address] [place] [id number] Dec, [facility] [address] [id number] [address] [place] [phone] Dec, [facility] [address] [facility] [id number] [address] [place] [phone] Dec, [facility] [address] [facility] [id number] [address] [place] [id number] Dec, [facility] [address] [id number] [address] [place] [address], [place] [address] Dec, [facility] [address] [id number] [address] [place] [address], [place] [address] Nov, [facility] [address] [id number] [address] [place] [address], [place] [address] Nov, [facility] [address] [id number] [address] [place] [address], [place] [address] Oct, [facility] [address] [id number] [address] [place] [address], [place] [address] Sep, [facility] [address] [id number] [address] [place] [address], [place] [address] Sep, [facility] [address] [id number] [address] [place] [address], [place] [address] Sep, [facility] [address] [id number] [address] [place] [address], [place] [address] Sep, [facility] [address] [id number] [address] [place] [address], [place] [address] Jul, [facility] [address] [id number] [address] [place] [address], [place] [address] Jul, [facility] [address] [id number] [address] [place] [address], [place] [address] Jul, [facility] [address] [id number] [address] [place] [address], [place] [address] Jul, [facility] [address] [id number] [address] [place] [address], [place] [address] Jun, [facility] [address] [id number] [address] [place] [address], [place] [address] Jun, [facility] [address] [id number] [address] [place] [address], [place] [address] Jun, [facility] [address] [id number] [address] [place] [address], [place] [address] Jun, [facility] [address] [id number] [address] [place] [address], [place] [address] Apr, [facility] [address] [id number] [address] [place] [address], [place] [address] Apr, [facility] [address] [id number] [address] [place] [address], [place] [address] Apr, [facility] [address] [id number] [address] [place] [address], [place] [address] Apr, [facility] [address] [id number] [address] [place] [address], [place] [address] Dec, [facility] [address] [id number] [address] [place] [address], [place] [address] Dec, [facility] [address] [id number] [address] [place] [address], [place] [address] Dec, [facility] [address] [id number] [address] [place] [address], [place] [address] Dec, [facility] [address] [id number] [address] [place] [address], [place] [address] Dec, [facility] [address] [id number] [address] [place] [address], [place] [address] Dec, [facility] [address] [id number] [address] [place] [address], [place] [address] Nov, [facility] [address] [id number] [address] [place] [address], [place] [address] Nov, [facility] [address] [id number] [address] [place] [address], [place] [address] Sep, [facility] [address] [id number] [address] [place] [address], [place] [address] Sep, [facility] [address] [id number] [address] [place] [address], [place] [address] Sep, [facility] [address] [id number] [address] [place] [address], [place] [address] Sep, [facility] [address] [id number] [address] [place] [address], [place] [address] Sep, [facility] [address] [id number] [address] [place] [address], [place] [address] Aug, [facility] [address] [id number] [address] [place] [address], [place] [address] Aug, [facility] [address] [id number] [address] [place] [address], [place] [address] Aug, [facility] [address] [id number] [address] [place] [address], [place] [address] Aug, [facility] [address] [id number] [address] [place] [address], [place] [address] Jul, [facility] [address] [id number] [address] [place] [address], [place] [address] Jun, [facility] [address] [id number] [address] [place] [address], [place] [address] May, [facility] [address] [id number] [address] [place] [address], [place] [address] May, [facility] [address] [id number] [address] [place] [address], [place] [address] May, [facility] [address] [id number] [address] [place] [address], [place] [address] Apr, [facility] [address] [id number] [address] [place] [address], [place] [address] Apr, [facility] [address] [id number] [address] [place] [address], [place] [address] March, [facility] [address] [id number] [address] [place] [address], [place] [address] March, [facility] [address] [id number] [address] [place] [address], [place] [address] 18 Feb, 2013 [facility] [address] [id number] [address] [place] [address], [place] [address] 15 Feb, 2013 [facility] [address] [id number] [address] [place] [address], [place] [address] 10 Feb, 2013 [facility] [address] [id number] [address] [place] [address], [place] [address] Jan, [facility] [address] [id number] [address] [place] [address], [place] [address] Jan, [facility] [address] [id number] [address] [place] [address], [place] [address] Jan, [facility] [address] [id number] [address] [place] [address], [place] [address] Dec, [facility] [address] [id number] [address] [place] [address], [place] [address] Dec, [facility] [address] [id number] [address] [place] [address], [place] [address] Dec, [facility] [address] [id number] [address] [place] [address], [place] [address] Nov, [facility] [address] [id number] [address] [place] [address], [place] [address] Nov, [facility] [address] [id number] [address] [place] [address], [place] [address] Nov, [facility] [address] [id number] [address] [place] [address], [place] [address] Nov, [facility] [address] [id number] [address] [place] [address], [place] [address] Nov, [facility] [address] [id number] [address] [place] [address], [place] [address] Nov, [facility] [address] [id number] [address] [place] [address], [place] [address] Oct, [facility] [address] [id number] [address] [place] [address], [place] [address] Oct, [facility] [address] [id number] [address] [place] [address], [place] [address] Oct, [facility] [address] [id number] [address] [place] [address], [place] [address] Oct, [facility] [address] [id number] [address] [place] [address], [place] [address] Sep, [facility] [address] [id number] [address] [place] [address], [place] [address] Sep, [facility] [address] [id number] [address] [place] [address], [place] [address] Sep, [facility] [address] [id number] [address] [place] [address], [place] [address] Sep, [facility] [address] [id number] [address] [place] [address], [place] [address] Aug, [facility] [address] [id number] [address] [place] [address], [place] [address] Jul, [facility] [address] [id number] [address] [place] [address], [place] [address] Jul, [facility] [address] [id number] [address] [place] [address], [place] [address] Jul, [facility] [address] [id number] [address] [place] [address], [place] [address] Jun, [facility] [address] [id number] [address] [place] [address], [place] [address] Jun, [facility] [address] [id number] [address] [place] [address], [place] [address] Jun, [facility] [address] [id number] [address] [place] [address], [place] [address] May, [facility] [address] [id number] [address] [place] [address], [place] [address] May, [facility] [address] [id number] [address] [place] [address], [place] [address] 19 Apr, 2012 [facility] [address] [id number] [address] [place] [address], [place] [address] 15 Apr, 2012 [facility] [address] [id number] [address] [place] [address], [place] [address] 13 Apr, 2012 [facility] [address] [id number] [address] [place] [address], [place] [address] Apr, [facility] [address] [id number] [address] [place] [address], [place] [address] March, [facility] [address] [id number] [address] [place] [address], [place] [address] March, [facility] [address] [id number] [address] [place] [address], [place] [address] March, [facility] [address] [id number] [address] [place] [address], [place] [address] Jan, [facility] [address] [id number] [address] [place] [address], [place] [address] Jan, [facility] [address] [id number] [address] [place] [address], [place] [address] Jan, [facility] [address] [id number] [address] [place] [address], [place] [address] 16 Nov, 2011 [facility] [address] [id number] [address] [place] [address], [place] [address] Nov, [facility] [address] [id number] [address] [place] [address], [place] [address] Nov, [facility] [address] [id number] [address] [place] [address], [place] [address] Nov, [facility] [address] [id number] [address] [place] [address], [place] [address] Oct, [facility] [address] [id number] [address] [place] [id number] Oct, [facility] [address] [id number] [address] [place] [id number] Oct, [facility] [address] [id number] [address] [place] [id number] Oct, [facility] [address] [id number] [address] [place] [id number] Oct, [facility] [address] [id number] [address] [place] [id number] Oct, [facility] [address] [facility] [id number] [address] [place] [id number] Oct, IMMUNIZATIONS No Known Immunizations SOCIAL HISTORY Never Assessed REASON FOR VISIT Diabetes- Sita Lundberg RN, PHQ2,DAST, A1C, Seeing Judy Fiore in [facility] for kid neys PLAN OF CARE Activity Details Follow Up 3 Months Reason: VITAL SIGNS Height 69 in 2017-11-30 Weight 222 lbs 2017-11-30 Temperature 97.8 degrees Fahrenheit 2017-11-30 Heart Rate 78 bpm 2017-11-30 Respiratory Rate 18 2017-11-30 BMI 32.78 kg/m2 2017-11-30 Blood pressure systolic 108 mmHg 2017-11-30 Blood pressure diastolic 72 mmHg 2017-11-30 MEDICATIONS Medication Instructions Dosage Frequency Start Date End Date Duration S tatus Simvastatin 40 MG Orally Once a day 1 tablet in the evening 24h Active Nortriptyline HCl 50 MG Orally Once a day 1-2 capsule at bedtime 24h Active Pantoprazole Sodium 40MG TAKE ONE TABLET BY MOUTH ONCE DAILY Active Aspir-81 81 MG Orally Once a day 1 tablet 24h Active Victoza 18 MG/3ML Subcutaneous Once a day 1.8 mg 24h Jan, Active Gabapentin 100 MG Orally Once a day 1 tablet 24h Active Furosemide 40 MG Orally every other day 1 tablet Active Carvedilol 12.5 MG Orally 2 times a day 1 tablet 12h 90 Active Plavix 75 MG Orally Once a day 1 tablet 24h Active NovoFine 32G X 6 MM subcutaneously Once a day 1 pen needle 24h , 2016 Active Levemir FlexTouch 100 UNIT/ML Subcutaneous Once a day 65 units 24h Active Ramipril 5 MG Orally Once a day 1 capsule 24h Active Fish Oil 1200 MG Orally twice a day 1 capsule 12h Active Vitamin D 1000 UNIT Orally Once a day 1 tablet 24h Active NovoLog Flexpen 100 UNIT/ML Subcutaneous 3 times a day 40 units 8h Active RESULTS Name Result Date Reference Range A1C (IN HOUSE) 2017-11-30 A1C IN HOUSE 7.4 4.3 - 5.6 % Previous A1c 7.6 Lot [id number] Exp date 08/2019 PROCEDURES Procedure Date Ordered Result Body Site GLYCATED HEMOGLOBIN TEST Nov 30, 2017 [facility] VISIT ESTABLISHED PATIENT Nov 30, 2017 INSTRUCTIONS MEDICATIONS ADMINISTERED No Known Medications MEDICAL (GENERAL) HISTORY Type Description Date Medical History chronic obstructive pulmonary disease (C OPD) Medical History diabetes mellitus Medical History Hypertension Medical History Hyperlipidemia Medical History Stroke syndrome 2006 Surgical History Left leg amputation 1998 Surgical History Cardiothoracic surgery Defibrillator 200 6 Hospitalization History surgeries
--- OUTSIDE RECORDS SUMMARY | 2020-04-18 19:40 | XMS REPORT ---
Author Author Carroll CUNHA Organization [facility] Address [address] [place] [address] Care Team Providers Care Insurance Customer Service Specialist Name Role Phone JS CUNHA Unavailable PROBLEMS Type Condition ICD9-CM Code [id number] Code Onset Dates Condition S tatus SNOMED Code Problem Essential hypertension I10 Active 56660261 Problem Diabetes E11.9 Active 524295315 Problem Gastroesophageal reflux disease, esophagitis pre sence not specified K21.9 Active 651463252 Problem Coronary disease I25.10 Active 537 01913 Problem Type 2 diabetes mellitus without complications E11 .9 Active 634120696 Problem Arthritis M19.90 Active [id number] ALLERGIES No Information ENCOUNTERS Encounter Location Date Diagnosis [facility] [address] [facility] [id number] [address] [place] [address] Nov, Type 2 diabetes mellitus wit hout complications E11.9 ; Coronary disease I25.10 and Essential hypertension I10 [facility] [address] [facility] [id number] [address] [place] [address] May, Diabetes E11.9 [facility] [address] [facility] [id number] [address] [place] [address] Apr, Type 2 diabetes mellitus wit hout complications E11.9 and Arthritis M19.90 [facility] [address] [id number] [address] [place] [address] March, Diabetes E11.9 [facility] [address] [facility] [id number] [address] [place] [address] March, Diabetes E11.9 [facility] [address] [facility] [id number] [address] [place] [address] March, [facility] [address] [facility] [id number] [address] [place] [address] Feb, Diabetes E11.9 [facility] [address] [id number] [address] [place] [address] Feb, Diabetes E11.9 [facility] [address] [id number] [address] [place] [address] Jan, [facility] [address] [id number] [address] [place] [address] Jan, Diabetes E11.9 [facility] [address] [id number] [address] [place] [address] Jan, Type 2 diabetes mellitus wit hout complications E11.9 [facility] [address] [id number] [address] [place] [address] Oct, [facility] [address] [id number] [address] [place] [address] Oct, Gastroesophageal reflux dise ase, esophagitis presence not specified K21.9 [facility] [address] [id number] [address] [place] [address] Sep, [facility] [address] [id number] [address] [place] [address] Sep, [facility] [address] [facility] [id number] [address] [place] [address] Sep, [facility] [address] [id number] [address] [place] [address] Aug, [facility] [address] [id number] [address] [place] [address] Aug, Diabetes E11.9 and Encounter for immunization Z23 [facility] [address] [id number] [address] [place] [address] Aug, [facility] [address] [facility] [id number] [address] [place] [address] 08 Jul, 2016 [facility] [address] [facility] [id number] [address] [place] [address] Jun, [facility] [address] [id number] [address] [place] [address] May, Diabetes E11.9 [facility] [address] [id number] [address] [place] [address], [place] [address] Apr, [facility] [address] [id number] [address] [place] [address] Apr, [facility] [address] [id number] [address] [place] [address] March, [facility] [address] [id number] [address] [place] [address], [place] [address] March, [facility] [address] [id number] [address] [place] [address] Feb, [facility] [address] [id number] [address] [place] [address], [place] [address] Feb, [facility] [address] [id number] [address] [place] [address] Feb, [facility] [address] [id number] [address] [place] [address] 14 Feb, 2016 [facility] [address] [id number] [address] [place] [address] Feb, [facility] [address] [id number] [address] [place] [address] Feb, Type 2 diabetes mellitus wit hout complications E11.9 [facility] [address] [id number] [address] [place] [address], [place] [address] Feb, [facility] [address] [id number] [address] [place] [address] Jan, [facility] [address] [id number] [address] [place] [address] Dec, Eustachian tube dysfunction H69.80 and Diabetes E11.9 [facility] [address] [id number] [address] [place] [address] Dec, [facility] [address] [facility] [id number] [address] [place] [address] Dec, [facility] [address] [facility] [id number] [address] [place] [address] Dec, Type 2 diabetes mellitus wit hout complications E11.9 ; Atherosclerotic heart disease of [place] coronary artery without angina pectoris I25.10 and Diabetes E11.9 [facility] [address] [facility] [id number] [address] [place] [address] Dec, [facility] [address] [facility] [id number] [address] [place] [address] Dec, CHF (congestive heart failur e) I50.9 [facility] [address] [facility] [id number] [place] [address] Nov, Diabetes E11.9 and Coronary disease I25.10 [facility] [address] [facility] [id number] [address] [place] [address] Oct, [facility] [address] [facility] [id number] [address] [place] [address] Aug, [facility] [address] [facility] [id number] [address] [place] [address] Jul, [facility] [address] [place] [id number] [address] [place] [address] Jul, DM w/o complication type II 250.00 and Spontaneous bleeding of digits 459.0 [facility] [address] [facility] [id number] [address] [place] [address] Apr, [facility] [address] [place] [id number] [place] [address] Apr, [facility] [address] [facility] [id number] [address] [place] [address] March, CHF (congestive heart failur e) 428.0 and Coronary atherosclerosis of unspecified type of vessel, [place] or graft 414.00 [facility] [address] [id number] [address] [place] [address], [place] [address] March, [facility] [address] [id number] [address] [place] [address], [place] [address] Feb, [facility] [address] [id number] [address] [place] [address], [place] [address] Feb, [facility] [address] [id number] [address] [place] [address], [place] [address] Jan, [facility] [address] [id number] [address] [place] [address], [place] [address] Jan, [facility] [address] [id number] [address] [place] [address], [place] [address] Dec, [facility] [address] [id number] [address] [place] [address], [place] [address] Dec, [facility] [address] [id number] [address] [place] [address], [place] [address] Dec, [facility] [address] [id number] [address] [place] [address], [place] [address] Dec, [facility] [address] [id number] [address] [place] [address], [place] [address] Dec, [facility] [address] [id number] [address] [place] [address], [place] [address] Dec, [facility] [address] [id number] [address] [place] [address], [place] [address] Nov, [facility] [address] [id number] [address] [place] [address], [place] [address] Nov, [facility] [address] [id number] [address] [place] [address], [place] [address] Oct, [facility] [address] [id number] [address] [place] [address], [place] [address] Sep, [facility] [address] [id number] [address] [place] [address], [place] [address] 14 Sep, 2014 [facility] [address] [id number] [address] [place] [address], [place] [address] Sep, [facility] [address] [id number] [address] [place] [address], [place] [address] Sep, [facility] [address] [id number] [address] [place] [address], [place] [address] Jul, [facility] [address] [id number] [address] [place] [address], [place] [address] Jul, [facility] [address] [id number] [address] [place] [address], [place] [address] Jul, [facility] [address] [id number] [address] [place] [address], [place] [address] Jul, [facility] [address] [id number] [address] [place] [address], [place] [address] Jun, [facility] [address] [id number] [address] [place] [address], [place] [address] Jun, [facility] [address] [id number] [address] [place] [address], [place] [address] Jun, [facility] [address] [id number] [address] [place] [address], [place] [address] Jun, [facility] [address] [id number] [address] [place] [address], [place] [address] Apr, [facility] [address] [id number] [address] [place] [address], [place] [address] Apr, [facility] [address] [id number] [address] [place] [address], [place] [address] Apr, [facility] [address] [id number] [address] [place] [address], [place] [address] Apr, [facility] [address] [id number] [address] [place] [address], [place] [address] Dec, [facility] [address] [id number] [address] [place] [address], [place] [address] Dec, [facility] [address] [id number] [address] [place] [address], [place] [address] Dec, [facility] [address] [id number] [address] [place] [address], [place] [address] Dec, [facility] [address] [id number] [address] [place] [address], [place] [address] Dec, [facility] [address] [id number] [address] [place] [address], [place] [address] Dec, [facility] [address] [id number] [address] [place] [address], [place] [address] Nov, [facility] [address] [id number] [address] [place] [address], [place] [address] Nov, [facility] [address] [id number] [address] [place] [address], [place] [address] Sep, [facility] [address] [id number] [address] [place] [address], [place] [address] Sep, [facility] [address] [id number] [address] [place] [address], [place] [address] Sep, [facility] [address] [id number] [address] [place] [address], [place] [address] Sep, [facility] [address] [id number] [address] [place] [address], [place] [address] Sep, [facility] [address] [id number] [address] [place] [address], [place] [address] Aug, [facility] [address] [id number] [address] [place] [address], [place] [address] Aug, [facility] [address] [id number] [address] [place] [address], [place] [address] Aug, [facility] [address] [id number] [address] [place] [address], [place] [address] Aug, [facility] [address] [id number] [address] [place] [address], [place] [address] Jul, [facility] [address] [id number] [address] [place] [address], [place] [address] Jun, [facility] [address] [id number] [address] [place] [address], [place] [address] May, [facility] [address] [id number] [address] [place] [address], [place] [address] May, [facility] [address] [id number] [address] [place] [address], [place] [address] May, [facility] [address] [id number] [address] [place] [address], [place] [address] Apr, [facility] [address] [id number] [address] [place] [address], [place] [address] Apr, [facility] [address] [id number] [address] [place] [address], [place] [address] March, [facility] [address] [id number] [address] [place] [address], [place] [address] March, [facility] [address] [id number] [address] [place] [address], [place] [address] Feb, [facility] [address] [id number] [address] [place] [address], [place] [address] [address], [address] [facility] [address] [id number] [address] [place] [address], [place] [address] 10 Feb, 2013 [facility] [address] [id number] [address] [place] [address], [place] [address] [address], [address] [facility] [address] [id number] [address] [place] [address], [place] [address] [address], [address] [facility] [address] [id number] [address] [place] [address], [place] [address] Jan, [facility] [address] [id number] [address] [place] [address], [place] [address] Dec, [facility] [address] [id number] [address] [place] [address], [place] [address] Dec, [facility] [address] [id number] [address] [place] [address], [place] [address] Dec, [facility] [address] [id number] [address] [place] [address], [place] [address] Nov, [facility] [address] [id number] [address] [place] [address], [place] [address] Nov, [facility] [address] [id number] [address] [place] [address], [place] [address] Nov, [facility] [address] [id number] [address] [place] [address], [place] [address] Nov, [facility] [address] [id number] [address] [place] [address], [place] [address] Nov, [facility] [address] [id number] [address] [place] [address], [place] [address] Nov, [facility] [address] [id number] [address] [place] [address], [place] [address] Oct, [facility] [address] [id number] [address] [place] [address], [place] [address] Oct, [facility] [address] [id number] [address] [place] [address], [place] [address] Oct, [facility] [address] [id number] [address] [place] [address], [place] [address] Oct, [facility] [address] [id number] [address] [place] [address], [place] [address] Sep, [facility] [address] [id number] [address] [place] [address], [place] [address] Sep, [facility] [address] [id number] [address] [place] [address], [place] [address] Sep, [facility] [address] [id number] [address] [place] [address], [place] [address] Sep, [facility] [address] [id number] [address] [place] [address], [place] [address] Aug, [facility] [address] [id number] [address] [place] [address], [place] [address] Jul, [facility] [address] [id number] [address] [place] [address], [place] [address] Jul, [facility] [address] [id number] [address] [place] [address], [place] [address] Jul, [facility] [address] [id number] [address] [place] [address], [place] [address] Jun, [facility] [address] [id number] [address] [place] [address], [place] [address] Jun, [facility] [address] [id number] [address] [place] [address], [place] [address] Jun, [facility] [address] [id number] [address] [place] [address], [place] [address] May, [facility] [address] [id number] [address] [place] [address], [place] [address] May, [facility] [address] [id number] [address] [place] [address], [place] [address] Apr, [facility] [address] [id number] [address] [place] [address], [place] [address] Apr, [facility] [address] [id number] [address] [place] [address], [place] [address] Apr, [facility] [address] [id number] [address] [place] [address], [place] [address] Apr, [facility] [address] [id number] [address] [place] [address], [place] [address] March, [facility] [address] [id number] [address] [place] [address], [place] [address] March, [facility] [address] [id number] [address] [place] [address], [place] [address] March, [facility] [address] [id number] [address] [place] [address], [place] [address] Jan, [facility] [address] [id number] [address] [place] [address], [place] [address] Jan, [facility] [address] [id number] [address] [place] [address], [place] [address] Jan, [facility] [address] [id number] [address] [place] [address], [place] [address] 16 Nov, 2011 [facility] [address] [id number] [address] [place] [address], [place] [address] Nov, [facility] [address] [id number] [address] [place] [address], [place] [address] Nov, [facility] [address] [id number] [address] [place] [address], [place] [address] Nov, [facility] [address] [id number] [address] [place] [address], [place] [address] Oct, [facility] [address] [id number] [address] [place] [address], [place] [address] Oct, [facility] [address] [id number] [address] [place] [address], [place] [address] Oct, [facility] [address] [id number] [address] [place] [address], [place] [address] Oct, [facility] [address] [id number] [address] [place] [address], [place] [address] Oct, [facility] [address] [id number] [address] [place] [address], [place] [address] Oct, [facility] [address] [id number] [address] [place] [address], [place] [address] Oct, IMMUNIZATIONS No Known Immunizations SOCIAL HISTORY Never Assessed REASON FOR VISIT PLAN OF CARE VITAL SIGNS MEDICATIONS Medication Instructions Dosage Frequency Start Date End Date Duration S tatus NovoLog Flexpen 100 UNIT/ML Subcutaneous 3 times a day 40 units 8h Active Levemir FlexTouch 100 UNIT/ML Subcutaneous Once a day 65 units 24h Active RESULTS No Results PROCEDURES No Known [...]
--- OUTSIDE RECORDS SUMMARY | 2020-04-18 19:40 | XMS REPORT ---
Author Author Carroll CUNHA e[employer] Address Unknown Phone Unavailable Care Team Providers Care Environmental Health Officer Name Role Phone JS CUNHA CP Unavailable Allergies, Adverse Reactions, Alerts Substance Reaction Event Type N.K.D.A. Info Not Available Non Drug Allergy Problems Problem Type Condition ICD-9 Code Onset Dates Condition Statu s Assessment Spontaneous bleeding of digits 459.0 Active Problem Unspecified arthropathy, site unspecified 716.90 Active Assessment DM w/o complication type II 250.00 Active Problem Lower limb amputation, above knee V49.76 Active Problem Contact dermatitis and other eczema, due to unspecifie d cause 692.9 Active Problem DM w/o complication type II 250.00 Active Problem Coronary atherosclerosis of unspecified type of vessel, algaaciq or graft 414.00 Active Problem Unspecified ventral hernia without menti on of obstruction or gangrene 553.20 Active Problem Chronic airway obstruction, not elsewhere classified 4 96 Active Problem Acute bronchitis 466.0 Active Medications Medication Code System Code Instructions Start Date End Date Status Dosage Qvar [facility] [address]-46 40 mcg/actuation January 29, 2015 2 Puffs by Inhalation route 2 times per day Furosemide ND [id number] 40MG TAKE ONE TABLET BY MOUTH ONCE DAILY Levemir Flexpen ND 0 100 unit/mL (3 mL) Jul 24, 2014 20 Units by Subcutaneous route 1 time per day at bedtime Symbicort [facility] [address]-80 160-4.5 mcg/actuation Dec 31, 2013 inhale 2 puffs by inhalation route 2 times per day in the morning and evening ProAir HFA [facility] [address]-99 90 mcg/actuation January 29, 2015 2 puffs by Inhalation route every 4 hours PRN Diclofenac Sodium ND [id number] 75MG TA KE ONE TABLET BY MOUTH TWICE DAILY NEEDED Klor-Con M10 [facility] [id number] 10MEQ TAKE ON E TABLET BY MOUTH ONCE DAILY Procedures Procedure Coding System Code Date [facility] VISIT ESTABLISHED PATIENT CPT-4 G0467 S ept 2014 Office Visit, Est Pt., Level 3 CPT-4 04372 S ept 2014 GLYCATED HEMOGLOBIN TEST CPT-4 30533 Jul Vital Signs Date/Time: Jul 14, 2015 Temperature 97.8 F Weight 203.8 lbs Height 69 in BMI 30.09 Index Blood Pressure Diastolic 56 mmHg Blood Pressure Systolic 118 mmHg Cardiac Monitoring Heart Rate 88 bpm Results No Known Results Summary Purpose eClinicalWorks Submission
--- OUTSIDE RECORDS SUMMARY | 2020-04-18 19:40 | XMS REPORT ---
Author Author Carroll CUNHA [facility] eClinicalWorks Address Unknown Phone Unavailable Care Team Providers Care Senior Technical Project Manager Name Role Phone JS CUNHA Unavailable Allergies [...] Coronary atherosclerosis of unspecified type of vessel, port lions or graft 414.00 Active Problem Unspecified ventral hernia without menti on of obstruction or gangrene 553.20 Active Problem Chronic airway obstruction, not elsewhere classified 4 96 Active Problem Acute bronchitis 466.0 Active Medications Medication Code System Code Instructions Start Date End Date Status Dosage NovoLog Flexpen [facility] [address]-52 100 UNIT/ML Subcutaneous 3 times a day INJECT 15 UNITS Results No Known Results Summary Purpose eClinicalWorks Submission
--- OUTSIDE RECORDS SUMMARY | 2020-04-18 19:40 | XMS REPORT ---
Author Author Carroll CUNHA [facility] [employer] Address Unknown Phone Unavailable Care Team Providers Care Broach Trouble Shooter Name Role Phone JS CUNHA Unavailable Allergies No Known Allergies Problems Problem Type Condition Code Onset Dates Condition Statu s Problem Diabetes E11.9 Active Problem Coronary disease I25.10 Active Problem Type 2 diabetes mellitus without complications E11.9 Active Problem Lower limb amputation, above knee V49.76 Active Problem Coronary atherosclerosis of unspecified type of vessel, minto or graft 414.00 Active Medications No Known Medications Results No Known Results Summary Purpose eClinical[employer] Submission
--- OUTSIDE RECORDS SUMMARY | 2020-04-18 19:40 | XMS REPORT ---
Author Author Carroll CUNHA Organization [facility] Address [address] [place] [address] Care Team Providers Care Delivery Room Supervisor Name Role Phone JS CUNHA Unavailable PROBLEMS Type Condition ICD9-CM Code [id number] Code Onset Dates Condition S tatus SNOMED Code Problem Diabetes E11.9 Active 996589234 Problem Arthritis M19.90 Active 3648456 Problem Coronary disease I25.10 Active 537 49283 Problem Type 2 diabetes mellitus without complications E11 .9 Active 477140407 Problem Gastroesophageal reflux disease, esophagitis pre sence not specified K21.9 Active 580665972 ALLERGIES No Information SOCIAL HISTORY Never Assessed PLAN OF CARE VITAL SIGNS MEDICATIONS Medication Instructions Dosage Frequency Start Date End Date Duration S tatus Victoza 18 MG/3ML Subcutaneous Once a day 0.6 mg for 1 wee k, 1.2 mg 2nd week, 1.8 mg 3rd week and there after 24h Jan, Aug, 30 day(s) Active RESULTS No Results PROCEDURES No Known [...]
--- OUTSIDE RECORDS SUMMARY | 2020-04-18 19:40 | XMS REPORT ---
Author Author Carroll CUNHA Organization [facility] Address [address] [place] [address] Care Team Providers Care General Engineer Name Role Phone JS CUNHA Unavailable PROBLEMS Type Condition ICD9-CM Code [id number] Code Onset Dates Condition S tatus SNOMED Code Problem Diabetes E11.9 Active 581168476 Problem Type 2 diabetes mellitus without complications E11 .9 Active 013405253 Problem Coronary disease I25.10 Active 537 84319 Problem Arthritis M19.90 Active 4636620 Problem Gastroesophageal reflux disease, esophagitis pre sence not specified K21.9 Active 648872370 ALLERGIES Unknown Allergies SOCIAL HISTORY No smoking Hx information available PLAN OF CARE VITAL SIGNS MEDICATIONS Unknown Medications RESULTS No Results PROCEDURES No Known procedures IMMUNIZATIONS No Known Immunizations
--- OUTSIDE RECORDS SUMMARY | 2020-04-18 19:40 | XMS REPORT ---
Author Author Carroll CUNHA Organization [facility] Address [address] [place] [address] Care Team Providers Care Content Producer Name Role Phone JS CUNHA Unavailable PROBLEMS Type Condition ICD9-CM Code [id number] Code Onset Dates Condition S tatus SNOMED Code Problem Type 2 diabetes mellitus without complications E11 .9 Active 35499581 Problem Diabetes E11.9 Active 66039533 Problem Coronary atherosclerosis of unspecified type of vessel, gambell or graft 414.00 Active 02687338 Problem Coronary disease I25.10 Active 537 05450 Problem Lower limb amputation, above knee V49.76 Active 772989015 ALLERGIES Unknown Allergies SOCIAL HISTORY No smoking Hx information available PLAN OF CARE VITAL SIGNS MEDICATIONS Unknown Medications RESULTS No Results PROCEDURES No Known procedures IMMUNIZATIONS No Known Immunizations
--- OUTSIDE RECORDS SUMMARY | 2020-04-18 19:41 | XMS REPORT | Continuity of Care Document ---
Author Organization Unknown Address Unknown Phone Unavailable Allergies Active Description Code Type Severity Reaction Onset Reported/Identified Relationship to Patient Clinical Status Yes NKANo Known Allergies NKA Miscellaneous Allergy Mild N/A 07/25/2007 Medications There is no data. Problems Date Dx Coded Attending Type Code Diagnosis Diagnosed By 10/17/2011 JS CUNHA MD 250.0 0 DIABETES MELLITUS 10/17/2011 JS CUNHA MD 272.4 HYPERLIPIDEMIA 10/17/2011 JS CUNHA MD 401.9 HYPERTENSION (SYSTEMIC) 10/17/2011 JS CUNHA MD 250.0 0 DIABETES MELLITUS 10/17/2011 JS CUNHA MD 272.4 HYPERLIPIDEMIA 10/17/2011 JS CUNHA MD 401.9 HYPERTENSION (SYSTEMIC) 10/17/2011 JS CUNHA MD 250.0 0 DIABETES MELLITUS 10/17/2011 JS CUNHA MD 272.4 HYPERLIPIDEMIA 10/17/2011 JS CUNHA MD 401.9 HYPERTENSION (SYSTEMIC) 10/17/2011 250.00 BROOKE BETES MELLITUS 10/17/2011 272.4 HYPE RLIPIDEMIA 10/17/2011 401.9 HYPE RTENSION (SYSTEMIC) 10/17/2011 250.00 BROOKE BETES MELLITUS 10/17/2011 272.4 HYPE RLIPIDEMIA 10/17/2011 401.9 HYPE RTENSION (SYSTEMIC) 10/17/2011 250.00 BROOKE BETES MELLITUS 10/17/2011 272.4 HYPE RLIPIDEMIA 10/17/2011 401.9 HYPE RTENSION (SYSTEMIC) 10/17/2011 250.00 BROOKE BETES MELLITUS 10/17/2011 272.4 HYPE RLIPIDEMIA 10/17/2011 401.9 HYPE RTENSION (SYSTEMIC) 10/17/2011 JS CUNHA MD 250.0 0 DIABETES MELLITUS 10/17/2011 JS CUNHA MD 272.4 HYPERLIPIDEMIA 10/17/2011 JS CUNHA MD 401.9 HYPERTENSION (SYSTEMIC) 10/17/2011 JS CUNHA MD 250.0 0 DIABETES MELLITUS 10/17/2011 JS CUNHA MD 272.4 HYPERLIPIDEMIA 10/17/2011 JS CUNHA MD 401.9 HYPERTENSION (SYSTEMIC) 10/17/2011 JS CUNHA MD 250.0 0 DIABETES MELLITUS 10/17/2011 JS CUNHA MD 272.4 HYPERLIPIDEMIA 10/17/2011 JS CUNHA MD 401.9 HYPERTENSION (SYSTEMIC) 10/17/2011 JS CUNHA MD 250.0 0 DIABETES MELLITUS 10/17/2011 JS CUNHA MD 272.4 HYPERLIPIDEMIA 10/17/2011 JS CUNHA MD 401.9 HYPERTENSION (SYSTEMIC) 10/17/2011 JS CUNHA MD 250.0 0 DIABETES MELLITUS 10/17/2011 JS CUNHA MD 272.4 HYPERLIPIDEMIA 10/17/2011 JS CUNHA MD 401.9 HYPERTENSION (SYSTEMIC) 10/17/2011 JS CUNHA MD 250.0 0 DIABETES MELLITUS 10/17/2011 JS CUNHA MD 272.4 HYPERLIPIDEMIA 10/17/2011 JS CUNHA MD 401.9 HYPERTENSION (SYSTEMIC) 10/28/2011 Ot 250.00 BROOKE B VENKATESH WO COMPL, TYPE II OR UNSPEC TY 10/28/2011 Ot 272.4 HYPE RLIPIDEMIA NEC/NOS 10/28/2011 Ot 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) 10/28/2011 Ot 401.9 HYPE RTENSION NOS 10/28/2011 Ot 414.01 COR ONARY ATHEROSCLEROSIS OF [place] CORON 10/28/2011 Ot 414.8 CHR ISCHEMIC HRT DIS NEC 10/28/2011 Ot 416.8 CHR PULMON HEART DIS NEC 10/28/2011 Ot 443.9 SILVERIO PH VASCULAR DIS NOS 10/28/2011 Ot 568.0 SILVERIO TONEAL [id number] 10/28/2011 Ot 575.0 ACUT E CHOLECYSTITIS 10/28/2011 Ot V45.02 AUT O IMPLANTABLE CARDIAC DEFIBRILLATOR I 10/28/2011 Ot V49.76 ABO VE KNEE AMPUTATION STATUS 10/28/2011 Ot V64.41 LAP AROSCOPIC SURGICAL PROC CONVERTED TO 11/04/2011 JS CUNHA MD 443.9 PERIPHERAL VASCULAR DISEASE UNSPECIFIED 11/04/2011 JS CUNHA MD 443.9 PERIPHERAL VASCULAR DISEASE UNSPECIFIED 11/04/2011 JS CUNHA MD 443.9 PERIPHERAL VASCULAR DISEASE UNSPECIFIED 11/04/2011 443.9 SILVERIO PHERAL VASCULAR DISEASE UNSPECIFIED 11/04/2011 443.9 SILVERIO PHERAL VASCULAR DISEASE UNSPECIFIED 11/04/2011 443.9 SILVERIO PHERAL VASCULAR DISEASE UNSPECIFIED 11/04/2011 443.9 SILVERIO PHERAL VASCULAR DISEASE UNSPECIFIED 11/04/2011 JS CUNHA MD 443.9 PERIPHERAL VASCULAR DISEASE UNSPECIFIED 11/04/2011 JS CUNHA MD 443.9 PERIPHERAL VASCULAR DISEASE UNSPECIFIED 11/04/2011 JS CUNHA MD 443.9 PERIPHERAL VASCULAR DISEASE UNSPECIFIED 11/04/2011 JS CUNHA MD 443.9 PERIPHERAL VASCULAR DISEASE UNSPECIFIED 11/04/2011 JS CUNHA MD 443.9 PERIPHERAL VASCULAR DISEASE UNSPECIFIED 11/04/2011 JS CUNHA MD 443.9 PERIPHERAL VASCULAR DISEASE UNSPECIFIED 11/18/2011 JS CUNHA MD 692.9 CONTACT DERMATITIS AND OTHER ECZEMA UNSPECIFIED CAUSE 11/18/2011 JS CUNHA MD 692.9 CONTACT DERMATITIS AND OTHER ECZEMA UNSPECIFIED CAUSE 11/18/2011 JS CUNHA MD 692.9 CONTACT DERMATITIS AND OTHER ECZEMA UNSPECIFIED CAUSE 11/18/2011 692.9 CONT ACT DERMATITIS AND OTHER ECZEMA UNSPECIFIED CAUSE 11/18/2011 692.9 CONT ACT DERMATITIS AND OTHER ECZEMA UNSPECIFIED CAUSE 11/18/2011 692.9 CONT ACT DERMATITIS AND OTHER ECZEMA UNSPECIFIED CAUSE 11/18/2011 692.9 CONT ACT DERMATITIS AND OTHER ECZEMA UNSPECIFIED CAUSE 11/18/2011 JS CUNHA MD 692.9 CONTACT DERMATITIS AND OTHER ECZEMA UNSPECIFIED CAUSE 11/18/2011 JS CUNHA MD 692.9 CONTACT DERMATITIS AND OTHER ECZEMA UNSPECIFIED CAUSE 11/18/2011 JS CUNHA MD 692.9 CONTACT DERMATITIS AND OTHER ECZEMA UNSPECIFIED CAUSE 11/18/2011 JS CUNHA MD 692.9 CONTACT DERMATITIS AND OTHER ECZEMA UNSPECIFIED CAUSE 11/18/2011 JS CUNHA MD 692.9 CONTACT DERMATITIS AND OTHER ECZEMA UNSPECIFIED CAUSE 11/18/2011 JS CUNHA MD 692.9 CONTACT DERMATITIS AND OTHER ECZEMA UNSPECIFIED CAUSE 07/02/2012 JS CUNHA MD 716.9 0 ARTHRITIS/ ARTHROPATHY, UNSPECIFIED 07/02/2012 JS CUNHA MD 716.9 0 ARTHRITIS/ ARTHROPATHY, UNSPECIFIED 07/02/2012 JS CUNHA MD 716.9 0 ARTHRITIS/ ARTHROPATHY, UNSPECIFIED 07/02/2012 716.90 ART HRITIS/ ARTHROPATHY, UNSPECIFIED 07/02/2012 716.90 ART HRITIS/ ARTHROPATHY, UNSPECIFIED 07/02/2012 716.90 ART HRITIS/ ARTHROPATHY, UNSPECIFIED 07/02/2012 716.90 ART HRITIS/ ARTHROPATHY, UNSPECIFIED 07/02/2012 JS CUNHA MD 716.9 0 ARTHRITIS/ ARTHROPATHY, UNSPECIFIED 07/02/2012 JS CUNHA MD 716.9 0 ARTHRITIS/ ARTHROPATHY, UNSPECIFIED 07/02/2012 JS CUNHA MD 716.9 0 ARTHRITIS/ ARTHROPATHY, UNSPECIFIED 07/02/2012 JS CUNHA MD 716.9 0 ARTHRITIS/ ARTHROPATHY, UNSPECIFIED 07/02/2012 JS CUNHA MD 716.9 0 ARTHRITIS/ ARTHROPATHY, UNSPECIFIED 07/02/2012 JS CUNHA MD 716.9 0 ARTHRITIS/ ARTHROPATHY, UNSPECIFIED 01/24/2013 414.00 COR ONARY ATHEROSCLEROSIS OF UNSPECIFIED TYPE OF VESSEL [place] OR GRAFT 01/24/2013 553.20 UNS PECIFIED VENTRAL HERNIA WITHOUT OBSTRUCTION OR GANGRENE 01/24/2013 414.00 COR ONARY ATHEROSCLEROSIS OF UNSPECIFIED TYPE OF VESSEL [place] OR GRAFT 01/24/2013 553.20 UNS PECIFIED VENTRAL HERNIA WITHOUT OBSTRUCTION OR GANGRENE 01/24/2013 414.00 COR ONARY ATHEROSCLEROSIS OF UNSPECIFIED TYPE OF VESSEL [place] OR GRAFT 01/24/2013 553.20 UNS PECIFIED VENTRAL HERNIA WITHOUT OBSTRUCTION OR GANGRENE 01/24/2013 414.00 COR ONARY ATHEROSCLEROSIS OF UNSPECIFIED TYPE OF VESSEL [place] OR GRAFT 01/24/2013 553.20 UNS PECIFIED VENTRAL HERNIA WITHOUT OBSTRUCTION OR GANGRENE 01/24/2013 JS CUNHA MD 414.0 0 CORONARY ATHEROSCLEROSIS OF UNSPECIFIED TYPE OF VESSEL [place] OR GRAFT 01/24/2013 JS CUNHA MD 553.2 0 UNSPECIFIED VENTRAL HERNIA WITHOUT OBSTRUCTION OR GANGRENE 01/24/2013 JS CUNHA MD 414.0 0 CORONARY ATHEROSCLEROSIS OF UNSPECIFIED TYPE OF VESSEL [place] OR GRAFT 01/24/2013 JS CUNHA MD 553.2 0 UNSPECIFIED VENTRAL HERNIA WITHOUT OBSTRUCTION OR GANGRENE 01/24/2013 JS CUNHA MD 414.0 0 CORONARY ATHEROSCLEROSIS OF UNSPECIFIED TYPE OF VESSEL [place] OR GRAFT 01/24/2013 JS CUNHA MD 553.2 0 UNSPECIFIED VENTRAL HERNIA WITHOUT OBSTRUCTION OR GANGRENE 01/24/2013 JS CUNHA MD 414.0 0 CORONARY ATHEROSCLEROSIS OF UNSPECIFIED TYPE OF VESSEL [place] OR GRAFT 01/24/2013 JS CUNHA MD 553.2 0 UNSPECIFIED VENTRAL HERNIA WITHOUT OBSTRUCTION OR GANGRENE 01/24/2013 JS CUNHA MD 414.0 0 CORONARY ATHEROSCLEROSIS OF UNSPECIFIED TYPE OF VESSEL [place] OR GRAFT 01/24/2013 JS CUNHA MD 553.2 0 UNSPECIFIED VENTRAL HERNIA WITHOUT OBSTRUCTION OR GANGRENE 02/18/2013 496 CHRONI C AIRWAY OBSTRUCTION NOT ELSEWHERE CLASSIFIED 02/18/2013 496 CHRONI C AIRWAY OBSTRUCTION NOT ELSEWHERE CLASSIFIED 02/18/2013 496 CHRONI C AIRWAY OBSTRUCTION NOT ELSEWHERE CLASSIFIED 02/18/2013 JS CUNHA MD 496 CHRONIC AIRWAY OBSTRUCTION NOT ELSEWHERE CLASSIFIED 02/18/2013 JS CUNHA MD 496 CHRONIC AIRWAY OBSTRUCTION NOT ELSEWHERE CLASSIFIED 02/18/2013 JS CUNHA MD 496 CHRONIC AIRWAY OBSTRUCTION NOT ELSEWHERE CLASSIFIED 02/18/2013 JS CUNHA MD 496 CHRONIC AIRWAY OBSTRUCTION NOT ELSEWHERE CLASSIFIED 02/18/2013 JS CUNHA MD 496 CHRONIC AIRWAY OBSTRUCTION NOT ELSEWHERE CLASSIFIED 03/13/2013 LITZY CLEANING DO Ot 428.0 CONGESTIVE HEART FAILURE NOS 03/13/2013 LITZY CLEANING DO Ot 486 PNEUMONIA, ORGANISM NOS 03/13/2013 SHERRY CLEAN[employer] Ot 496 CHR AIRWAY OBSTRUCT NEC 03/13/2013 LITZY CLEANING DO Ot 786.05 SHORTNESS OF BREATH 03/22/2013 466.0 ACUT E BRONCHITIS 03/22/2013 JS CUNHA MD 466.0 ACUTE BRONCHITIS 03/22/2013 JS CUNHA MD 466.0 ACUTE BRONCHITIS 03/22/2013 JS CUNHA MD 466.0 ACUTE BRONCHITIS 03/22/2013 JS CUNHA MD 466.0 ACUTE BRONCHITIS 03/22/2013 JS CUNHA MD 466.0 ACUTE BRONCHITIS 06/21/2013 HALEY MOROCHO MD Ot 272 .0 PURE HYPERCHOLESTEROLEM 06/21/2013 HALEY MOROCHO MD Ot 414.01 CORONARY ATHEROSCLEROSIS OF [place] CORON 06/21/2013 HALEY MOROCHO MD Ot 414 .8 CHR ISCHEMIC HRT DIS NEC 06/21/2013 HALEY MOROCHO MD Ot 428 .0 CONGESTIVE HEART FAILURE NOS 06/21/2013 HALEY MOROCHO MD Ot 443 .9 PERIPH VASCULAR DIS NOS 06/21/2013 HALEY MOROCHO MD Ot 496 CHR AIRWAY OBSTRUCT NEC 06/21/2013 HALEY MOROCHO MD Ot 786.05 SHORTNESS OF BREATH 06/21/2013 HALEY MOROCHO MD Ot V15.82 HISTORY OF TOBACCO USE 03/29/2014 JS CUNHA MD Ot 250.00 DIAB VENKATESH WO COMPL, TYPE II OR UNSPEC TY 03/29/2014 JS CUNHA MD Ot 272 .0 PURE HYPERCHOLESTEROLEM 03/29/2014 JS CUNHA MD Ot 276 .8 HYPOPOTASSEMIA 03/29/2014 JS CUNHA MD Ot 285 .9 ANEMIA NOS 03/29/2014 JS CUNHA MD Ot 300.00 ANXIETY STATE NOS 03/29/2014 JS CUNHA MD Ot 305 .1 TOBACCO USE DISORDER 03/29/2014 JS CUNHA MD Ot 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) 03/29/2014 JS CUNHA MD Ot 401 .9 HYPERTENSION NOS 03/29/2014 JS CUNHA MD Ot 414.01 CORONARY ATHEROSCLEROSIS OF [place] CORON 03/29/2014 JS CUNHA MD Ot 416 .8 CHR PULMON HEART DIS NEC 03/29/2014 JS CUNHA MD Ot 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 03/29/2014 JS CUNHA MD Ot 428 .0 CONGESTIVE HEART FAILURE NOS 03/29/2014 JS CUNHA MD Ot 428.43 ACUTE CHRONIC SYSTOLIC/DIALSTOLIC HRT FA 03/29/2014 JS CUNHA MD Ot 440.20 ATHEROSCLEROSIS [place] ARTERIES EXTREMIT 03/29/2014 JS CUNHA MD Ot 458 .9 HYPOTENSION NOS 03/29/2014 JS CUNHA MD Ot 496 CHR AIRWAY OBSTRUCT NEC 03/29/2014 JS CUNHA MD Ot 518.81 ACUTE RESPIRATORY FAILURE 03/29/2014 JS CUNHA MD Ot 530.81 ESOPHAGEAL REFLUX 03/29/2014 JS CUNHA MD Ot 593 .9 RENAL URETERAL DIS NOS 03/29/2014 JS CUNHA MD Ot V15.81 HX OF PAST NONCOMPLIANCE 03/29/2014 JS CUNHA MD Ot V45.02 AUTO IMPLANTABLE CARDIAC DEFIBRILLATOR I 03/29/2014 JS CUNHA MD, Ot V49.76 ABOVE KNEE AMPUTATION STATUS 03/29/2014 JS CUNHA MD Ot V58.67 LONG-TERM (CURRENT) USE OF INSULIN 06/17/2014 JS CUNHA MD V49.7 6 ABOVE KNEE AMPUTATION STATUS 06/17/2014 JS CUNHA MD V49.7 6 ABOVE KNEE AMPUTATION STATUS 02/17/2015 SANGITA ALVAREZ FACC, ALI FACP CCDS Ot 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 NEC 02/17/2015 SANGITA ALVAREZ FACC, ALI FACP CCDS Ot V53.31 FITTING AND ADJUSTMENT OF CARDIAC PACEMA 02/19/2015 Ot 414.01 02/19/2015 Ot 425.4 02/19/2015 Ot 786.09 02/19/2015 Ot 414.00 02/19/2015 Ot 425.4 02/19/2015 Ot 429.3 02/19/2015 Ot 786.09 02/19/2015 GERARDO ALVAREZ, JOSE DAVID Ot 553.21 02/19/2015 GERARDO ALVAREZ, JOSE DAVID Ot V72.63 02/19/2015 GERARDO ALVAREZ, JOSE DAVID Ot V72.83 02/19/2015 JSOE DAVID SHARIF MD Ot V74.8 12/07/2015 JS CUNHA MD Ot E11.21 TYPE 2 DIABETES MELLITUS WITH DIABETIC N 12/07/2015 JS CUNHA MD Ot E78 .0 PURE HYPERCHOLESTEROLEMIA 12/07/2015 JS CUNHA MD Ot E78 .5 HYPERLIPIDEMIA, UNSPECIFIED 12/07/2015 JS CUNHA MD Ot F17.210 NICOTINE DEPENDENCE, CIGARETTES, UNCOMPL 12/07/2015 JS CUNHA MD Ot I25.10 ATHSCL HEART DISEASE OF [place] CORONARY 12/07/2015 JS CUNHA MD Ot I25 .2 OLD MYOCARDIAL INFARCTION 12/07/2015 JS CUNHA MD Ot I42 .9 CARDIOMYOPATHY, UNSPECIFIED 12/07/2015 JS CUNHA MD Ot I50.23 ACUTE ON CHRONIC SYSTOLIC (CONGESTIVE) H 12/07/2015 JS CUNHA MD Ot I77 .9 DISORDER OF ARTERIES AND ARTERIOLES, UNS 12/07/2015 JS CUNHA MD Ot J44 .9 CHRONIC OBSTRUCTIVE PULMONARY DISEASE, U 12/07/2015 JS CUNHA MD Ot K21 .9 GASTRO-ESOPHAGEAL REFLUX DISEASE WITHOUT 12/07/2015 JS CUNHA MD Ot N17 .9 ACUTE KIDNEY FAILURE, UNSPECIFIED 12/07/2015 JS CUNHA MD Ot Z79 .4 DEVELOPMENT TECHNICAL LEAD (CURRENT) USE OF INSULIN 12/07/2015 JS CUNHA MD Ot Z89.612 ACQUIRED ABSENCE OF LEFT LEG ABOVE KNEE 12/07/2015 JS CUNHA MD Ot Z95.810 PRESENCE OF AUTOMATIC (IMPLANTABLE) CARD 03/22/2016 Ot 414.01 COR ONARY ATHEROSCLEROSIS OF [place] CORON 03/22/2016 Ot 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 NEC 03/22/2016 Ot 786.09 RES PIRATORY ABNORM NEC 03/22/2016 Ot 414.00 COR ON ATHEROSCLER NOS TYPE VESSEL, NATIV 03/22/2016 Ot 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 NEC 03/22/2016 Ot 429.3 CARD IOMEGALY 03/22/2016 Ot 786.09 RES PIRATORY ABNORM NEC 03/22/2016 JOSE DAVID SHARIF MD Ot 553.21 INCISIONAL HERNIA 03/22/2016 JOSE DAVID SHARIF MD Ot V72.63 PRE-PROCEDURAL LABORATORY EXAMINATION 03/22/2016 JOSE DAVID SHARIF MD Ot V72.83 EXAM PRE-OPERATIVE NEC 03/22/2016 JOSE DAVID SHARIF MD Ot V74.8 SCREEN-BACTERIAL DIS NEC 03/23/2016 Ot 414.01 COR ONARY ATHEROSCLEROSIS OF [place] CORON 03/23/2016 Ot 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 NEC 03/23/2016 Ot 786.09 RES PIRATORY ABNORM NEC 03/23/2016 Ot 414.00 COR ON ATHEROSCLER NOS TYPE VESSEL, NATIV 03/23/2016 Ot 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 NEC 03/23/2016 Ot 429.3 CARD IOMEGALY 03/23/2016 Ot 786.09 RES PIRATORY ABNORM NEC 03/23/2016 JOSE DAVID SHARIF MD Ot 553.21 INCISIONAL HERNIA 03/23/2016 GERARDO ALVAREZ, JOSE DAVID Ot V72.63 PRE-PROCEDURAL LABORATORY EXAMINATION 03/23/2016 GERARDO ALVAREZ, JOSE DAVID Ot V72.83 EXAM PRE-OPERATIVE NEC 03/23/2016 JOSE DAVID SHARIF MD Ot V74.8 SCREEN-BACTERIAL DIS NEC 03/30/2016 CHRISTIAN YANCEY MD Ot F17.210 NICOTINE DEPENDENCE, CIGARETTES, UNCOMPL 03/30/2016 CHRSITIAN YANCEY MD Ot G31.9 DEGENERATIVE DISEASE OF NERVOUS SYSTEM, 03/30/2016 CHRISTIAN YANCEY MD Ot S00.03XA CONTUSION OF SCALP, INITIAL ENCOUNTER 03/30/2016 CHRISTIAN YANCEY MD Ot W05.0XXA FALL FROM NON-MOVING WHEELCHAIR, INITIAL 03/30/2016 CHRISTIAN YANCEY MD Ot Y92.[address] IN [facility] NON-INSTITUT (PRIVATE 03/30/2016 CHRISTIAN YANCEY MD Ot Y99.8 OTHER EXTERNAL CAUSE STATUS 03/30/2016 CHRISTIAN YANCEY MD Ot Z95.0 PRESENCE OF CARDIAC PACEMAKER 03/31/2016 CHRISTIAN YANCEY MD Ot F17.210 NICOTINE DEPENDENCE, CIGARETTES, UNCOMPL 03/31/2016 CHRISTIAN YANCEY MD Ot G31.9 DEGENERATIVE DISEASE OF NERVOUS SYSTEM, 03/31/2016 CHRISTIAN YANCEY MD Ot S00.03XA CONTUSION OF SCALP, INITIAL ENCOUNTER 03/31/2016 CHRISTIAN YANCEY MD Ot W05.0XXA FALL FROM NON-MOVING WHEELCHAIR, INITIAL 03/31/2016 CHRISTIAN YANCEY MD Ot Y92.[address] IN [facility] NON-INSTIT[facility] (PRIVATE 03/31/2016 CHRISTIAN YANCEY MD Ot Y99.8 OTHER EXTERNAL CAUSE STATUS 03/31/2016 CHRISTIAN YANCEY MD Ot Z95.0 PRESENCE OF CARDIAC PACEMAKER 04/14/2017 SANGITA ALVAREZ FACMakayla, JONAH FACP CCDS Ot E88.1 LIPODYSTROPHY, NOT ELSEWHERE CLASSIFIED 04/14/2017 SANGITA ALVAREZ FACMakayla, ALI FACP CCDS Ot I25.10 ATHSCL HEART DISEASE OF [place] CORONARY 04/14/2017 SANGITA ALVAREZ FACC, ALI FACP CCDS Ot I42.0 DILATED CARDIOMYOPATHY 04/14/2017 SANGITA ALVAREZ FACC, ALI FACP CCDS Ot N18.3 CHRONIC KIDNEY DISEASE, STAGE 3 (MODERAT 04/20/2017 SANGITA ALVAREZ FACC, ALI FACP CCDS Ot 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 04/20/2017 SANGITA ALVAREZ FACC, ALI FACP CCDS Ot I25.10 ATHSCL HEART DISEASE OF [place] CORONARY 04/20/2017 SANGITA ALVAREZ FACC, ALI FACP CCDS Ot I42.0 DILATED CARDIOMYOPATHY 04/20/2017 SANGITA ALVAREZ FACC, ALI FACP CCDS Ot N18.3 CHRONIC KIDNEY DISEASE, STAGE 3 (MODERAT 05/04/2017 SANGITA ALVAREZ FACC, ALI FACP CCDS Ot E88.1 LIPODYSTROPHY, NOT ELSEWHERE CLASSIFIED 05/04/2017 SANGITA RIGGSC, ALI FACP CCDS Ot I25.10 ATHSCL HEART DISEASE OF [place] CORONARY 05/04/2017 SANGITA RIGGSC, ALI FACP CCDS Ot I42.0 DILATED CARDIOMYOPATHY 05/04/2017 SANGITA ALVAREZ FACC, ALI FACP CCDS Ot N18.3 CHRONIC KIDNEY DISEASE, STAGE 3 (MODERAT 05/22/2017 SANGITA RIGGSC, ALI FACP CCDS Ot 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 05/22/2017 SANGITA ALVAREZ FACC, ALI FACP CCDS Ot I25.10 ATHSCL HEART DISEASE OF [place] CORONARY 05/22/2017 SANGITA RIGGSC, ALI FACP CCDS Ot I42.0 DILATED CARDIOMYOPATHY 05/22/2017 SANGITA RIGGSC, ALI FACP CCDS Ot N18.3 CHRONIC KIDNEY DISEASE, STAGE 3 (MODERAT 05/29/2017 SANGITA RIGGSC, ALI FACP CCDS Ot 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 05/29/2017 SANGITA ALVAREZ FACC, ALI FACP CCDS Ot I25.10 ATHSCL HEART DISEASE OF [place] CORONARY 05/29/2017 SANGITA ALVAREZ FACC, ALI FACP CCDS Ot I42.0 DILATED CARDIOMYOPATHY 05/29/2017 SANGITA RIGGSC, ALI FACP CCDS Ot N18.3 CHRONIC KIDNEY DISEASE, STAGE 3 (MODERAT 05/31/2017 SANGITA ALVAREZ FACC, ALI FACP CCDS Ot 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 05/31/2017 SANGITA ALVAREZ FACC, ALI FACP CCDS Ot I25.10 ATHSCL HEART DISEASE OF [place] CORONARY 05/31/2017 SANGITA RIGGSC, ALI FACP CCDS Ot I42.0 DILATED CARDIOMYOPATHY 05/31/2017 SANGITA ALVAREZ FACC, ALI FACP CCDS Ot N18.3 CHRONIC KIDNEY DISEASE, STAGE 3 (MODERAT 01/09/2018 GERARDO ALVAREZ, JOSE DAVID Ot 553.21 INCISIONAL HERNIA 01/09/2018 JOSE DAVID SHARIF MD Ot V72.63 PRE-PROCEDURAL LABORATORY EXAMINATION 01/09/2018 JOSE DAVID SHARIF MD Ot V72.83 EXAM PRE-OPERATIVE NEC 01/09/2018 JOSE DAVID SHARIF MD Ot V74.8 SCREEN-BACTERIAL DIS NEC 01/09/2018 SANGITA ALVAREZ FACC, ALI FACP CCDS Ot 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 01/09/2018 SANGITA ALVAREZ FACC, ALI FACP CCDS Ot I25.10 ATHSCL HEART DISEASE OF [place] CORONARY 01/09/2018 SANGITA RIGGSC, ALI FACP CCDS Ot I42.0 DILATED CARDIOMYOPATHY 01/09/2018 SANGITA ALVAREZ FACC, ALI FACP CCDS Ot N18.3 CHRONIC KIDNEY DISEASE, STAGE 3 (MODERAT 01/09/2018 SANGITA RIGGSC, ALI FACP CCDS Ot E88.1 LIPODYSTROPHY, NOT ELSEWHERE CLASSIFIED 01/09/2018 SANGITA ALVAREZ FACC, ALI FACP CCDS Ot I25.10 ATHSCL HEART DISEASE OF [place] CORONARY 01/09/2018 SANGITA ALVAREZ FACC, ALI FACP CCDS Ot I42.0 DILATED CARDIOMYOPATHY 01/09/2018 SANGITA ALVAREZ FACC, ALI FACP CCDS Ot N18.3 CHRONIC KIDNEY DISEASE, STAGE 3 (MODERAT 01/12/2018 PACHECO ALVAREZ, MARINA Ot E11.65 TYPE 2 DIABETES MELLITUS WITH HYPERGLYCE 01/12/2018 MARINA BERGMAN MD Ot I12 .9 HYPERTENSIVE CHRONIC KIDNEY DISEASE W ST 01/12/2018 MARINA BERGMAN MD Ot I50 .9 HEART FAILURE, UNSPECIFIED 01/12/2018 PACHECO ALVAREZ, GRAY Ot N18 .3 CHRONIC KIDNEY DISEASE, STAGE 3 (MODERAT 01/12/2018 PACHECO ALVAREZ, MARINA Ot E11.65 TYPE 2 DIABETES MELLITUS WITH HYPERGLYCE 01/12/2018 PACHECO ALVAREZ, GRAY Ot I12 .9 HYPERTENSIVE CHRONIC KIDNEY DISEASE W ST 01/12/2018 PACHECO ALVAREZ, GRAY Ot I50 .9 HEART FAILURE, UNSPECIFIED 01/12/2018 PACHECO ALVAREZ, GRAY Ot N18 .3 CHRONIC KIDNEY DISEASE, STAGE 3 (MODERAT 02/12/2018 PACHECO ALVAREZ, MARINA Ot E11.65 TYPE 2 DIABETES MELLITUS WITH HYPERGLYCE 02/12/2018 PACHECO ALVAREZ, GRAY Ot I12 .9 HYPERTENSIVE CHRONIC KIDNEY DISEASE W ST 02/12/2018 PACHECO ALVAREZ, GRAY Ot I50 .9 HEART FAILURE, UNSPECIFIED 02/12/2018 PACHECO ALVAREZ, GRAY Ot N18 .3 CHRONIC KIDNEY DISEASE, STAGE 3 (MODERAT 07/02/2019 SANGITA ALVAREZ FACC, ALI FACP CCDS Ot 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 07/02/2019 SANGITA ALVAREZ FACC, ALI FACP CCDS Ot I25.10 ATHSCL HEART DISEASE OF [place] CORONARY 07/02/2019 SANGITA ALVAREZ FACC, ALI FACP CCDS Ot I42.0 DILATED CARDIOMYOPATHY 07/02/2019 SANGITA ALVAREZ FACC, ALI FACP CCDS Ot N18.3 CHRONIC KIDNEY DISEASE, STAGE 3 (MODERAT 07/02/2019 SANGITA ALVAREZ FACC, ALI FACP CCDS Ot E88.1 LIPODYSTROPHY, NOT ELSEWHERE CLASSIFIED 07/02/2019 SANGITA ALVAREZ FACC, ALI FACP CCDS Ot I25.10 ATHSCL HEART DISEASE OF [place] CORONARY 07/02/2019 SANGITA ALVAREZ FACC, ALI FACP CCDS Ot I42.0 DILATED CARDIOMYOPATHY 07/02/2019 SANGITA ALVAREZ FACC, ALI FACP CCDS Ot N18.3 CHRONIC KIDNEY DISEASE, STAGE 3 (MODERAT 07/02/2019 PACHECO ALVAREZ, MARINA Ot E11.65 TYPE 2 DIABETES MELLITUS WITH HYPERGLYCE 07/02/2019 PACHECO ALVAREZ, GRAY Ot I12 .9 HYPERTENSIVE CHRONIC KIDNEY DISEASE W ST 07/02/2019 MARINA BERGMAN MD Ot I50 .9 HEART FAILURE, UNSPECIFIED 07/02/2019 MARINA BERGMAN MD Ot N18 .3 CHRONIC KIDNEY DISEASE, STAGE 3 (MODERAT 07/25/2019 SANGITA ALVAREZ FACMakayla, ALI FACP CCDS Ot 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 07/25/2019 SANGITA ALVAREZ FACC, ALI FACP CCDS Ot E78.5 HYPERLIPIDEMIA, UNSPECIFIED 07/25/2019 SANGITA ALVAREZ FACMakayla, ALI FACP CCDS Ot I25.10 ATHSCL HEART DISEASE OF [place] CORONARY 07/25/2019 SANGITA RIGGSC, ALI FACP CCDS Ot I25.5 ISCHEMIC CARDIOMYOPATHY 07/25/2019 SANGITA ALVAREZ FACC, ALI FACP CCDS Ot I34.0 NONRHEUMATIC MITRAL (VALVE) INSUFFICIENC 07/25/2019 SANGITA ALVAREZ FACC, ALI FACP CCDS Ot I42.0 DILATED CARDIOMYOPATHY 07/25/2019 SANGITA ALVAREZ FACC, ALI FACP CCDS Ot I50.22 CHRONIC SYSTOLIC (CONGESTIVE) HEART FAIL 07/25/2019 SANGITA ALVAREZ FACC, ALI FACP CCDS Ot I73.9 PERIPHERAL VASCULAR DISEASE, UNSPECIFIED 07/25/2019 SANGITA ALVAREZ FACC, ALI FACP CCDS Ot N18.3 CHRONIC KIDNEY DISEASE, STAGE 3 (MODERAT Procedures Code Description Performed By Per formed On 51.22 10/26/2011 53999 A1C (IN-HOUSE) 11/12/2012 53768 MICR O ALBUMIN-IN HOUSE 11/12/2012 53706 MICR OALBUMIN 11/13/2012 48104 ROUT INE VENIPUNCTURE 11/14/2012 27118 CMP 11/14/2012 60449 LIPI D PANEL 11/14/2012 [id number] GF R CALC (RESULT ONLY) 11/14/2012 Cardiolog Jonah Perez 01/30/2013 95053 A1C (IN-HOUSE) 02/18/2013 General S Aashish Sharif 02/19/2013 07890 A1C (IN-HOUSE) 12/23/2013 96.04 INSE RT ENDOTRACHEAL TUBE 03/25/2014 96.71 CONT INUOUS INVASIVE MECHANICAL VENTILATI 03/25/2014 43298 A1C (IN-HOUSE) 04/22/2014 Results Test Result Range Complete blood count (CBC) with automate d white blood cell (WBC) differential - 04/18/20 16:54 Blood leukocytes automated count (number/volume) 14.9 10*3/uL 4.3-11.0 Blood erythrocytes automated count (number/volume) 4.66 10*6/uL 4.35-5.85 Venous blood hemoglobin measurement (mass/volume) 14.1 g/dL 13.3-17.7 Blood hematocrit (volume fraction) 42 % 40-54 Automated erythrocyte mean corpuscular volume 91 [ foz_us] 80-99 Automated erythrocyte mean corpuscular h emoglobin (mass per erythrocyte) 30 pg 25-34 Automated erythrocyte mean corpuscular h emoglobin concentration measurement (mass/volume) 33 g/dL 32-36 Automated erythrocyte distribution width ratio 14. 4 % 10.0- 14.5 Automated blood platelet count (count/volume) 257 10*3/uL 130-400 Automated blood platelet mean volume measurement 11.5 [foz_us] 7.4-10.4 Automated blood neutrophils/100 leukocytes 64 % 42-75 Automated blood lymphocytes/100 leukocytes 20 % 12-44 Blood monocytes/100 leukocytes 11 % 0-12 Automated blood eosinophils/100 leukocytes 4 % 0-10 Automated blood basophils/100 leukocytes 0 % 0-10 Blood neutrophils automated count (number/volume) 9.6 10*3 1.8-7.8 Blood lymphocytes automated count (number/volume) 3.0 10*3 1.0-4.0 Blood monocytes automated count (number/volume) 1. 7 10*3 0.0-1.0 Automated eosinophil count 0.6 10*3/uL 0 .0-0.3 Automated blood basophil count (count/volume) 0.0 10*3/uL 0.0-0.1 Comprehensive metabolic panel - 04/18/20 16:54 Serum or plasma sodium measurement (moles/volume) 141 mmol/L 135-145 Serum or plasma potassium measurement (moles/volume) 4.6 mmol/L 3.6-5.0 Serum or plasma chloride measurement (moles/volume) 106 mmol/L 98-107 Carbon dioxide 21 mmol/L 21-32 Serum or plasma anion gap determination (moles/volume) 14 mmol/L 5-14 Serum or plasma urea nitrogen measurement (mass/volume ) 47 mg/dL 7-18 Serum or plasma creatinine measurement (mass/volume) 2.35 mg/dL 0.60-1.30 Serum or plasma urea nitrogen/creatinine mass ratio 20 NRG Serum or plasma creatinine measurement w ith calculation of estimated glomerular filtration rate 27 NRG Serum or plasma glucose measurement (mass/volume) 83 mg/dL 70-105 Serum or plasma calcium measurement (mass/volume) 9.6 mg/dL 8.5-10.1 Serum or plasma total bilirubin measurement (mass/volu me) 0.4 mg/dL 0.1-1.0 Serum or plasma alkaline phosphatase jolly surement (enzymatic activity/volume) 59 U/L 40-136 Serum or plasma aspartate aminotransfera se measurement (enzymatic activity/volume) 21 U/L 5-34 Serum or plasma alanine aminotransferase measurement (enzymatic activity/volume) 20 U/L 0-55 Serum or plasma protein measurement (mass/volume) 7.8 g/dL 6.4-8.2 Serum or plasma albumin measurement (mass/volume) 4.2 g/dL 3.2-4.5 CALCIUM CORRECTED 9.4 mg/dL 8.5-10.1 Manual absolute plasma cell count - 04/06 01/23 16:54 Blood monocytes/100 leukocytes 5 % NRG Manual blood segmented neutrophils/100 leukocytes 58 % NRG Blood band neutrophils/100 leukocytes 0 % NRG Manual blood lymphocytes/100 leukocytes 20 % NRG Manual eosinophils/100 leukocytes in nose 9 % NRG Manual blood basophils/100 leukocytes 0 % NRG Blood lymphocytes variant/100 leukocytes 8 % NRG Blood anisocytosis detection by light microscopy S LIGHT NRG Serum or plasma lithium measurement (mol es/volume) - 04/18/20 16:54 BNP PT 20.3 pg/mL <100.0 Encounters ACCT No. Visit Date/Time Discharge Status Pt. Type Provider Facility Loc./Unit Complaint [id number] 11/05/2019 14:00:00 11/05/2019 23:59: 59 CLS Outpatient JS CUNHA MD [facility] [id number] 12/22/2014 14:02:00 12/22/2014 23:59: 59 CLS Outpatient JS CUNHA MD [id number] 06/17/2014 10:58:00 06/17/2014 23:59: 59 CLS Outpatient JS CUNHA MD [id number] 04/22/2014 15:40:00 04/22/2014 23:59: 59 CLS Outpatient JS CUNHA MD [id number] 12/23/2013 16:10:00 12/23/2013 23:59: 59 CLS Outpatient JS CUNHA MD [id number] 07/29/2013 15:24:00 07/29/2013 23:59: 59 CLS Outpatient JS CUNHA MD [id number] 01/24/2013 11:09:00 01/24/2013 23:59: 59 CLS Outpatient [id number] 11/14/2012 09:14:00 11/14/2012 23:59: 59 CLS Outpatient JS CUNHA MD [id number] 11/12/2012 13:55:00 11/12/2012 23:59: 59 [place] [id number] 07/25/2012 13:52:00 07/25/2012 23:59:5 9 CLS Outpatient JS CNUHA MD [id number] 07/25/2012 13:52:00 07/25/2012 23:59: 59 CLS Outpatient JS CUNHA MD [id number] 03/22/2013 14:07:00 Document Registration [id number] 02/18/2013 14:18:00 Document Registration [id number] 02/18/2013 14:18:00 Document Registration [id number] 07/02/2019 10:02:00 019 23:59:59 CLS Outpatient JONAH PEREZ MD, FACC, FACP DS [facility] CARD CAD, CHRONI C SYSTOLIC CHF [id number] 01/11/2018 08:39:00 018 23:59:59 CLS Outpatient MARINA BERGMAN MD [facility] RAD CHRONIC KIDNEY DISEASE [id number] 04/19/2017 12:51:00 017 23:59:59 CLS Outpatient JONAH PEREZ MD, FACC, FACP DS [facility] CARD CAD, [id number] 04/13/2017 07:00:00 017 23:59:59 CLS Outpatient JONAH PEREZ MD, FACC, FACP DS [facility] CARD CAD [id number] 03/30/2016 16:25:00 016 18:35:00 DIS Emergency BC ALVAREZ, CHRISTIAN Lara [facility] ER PAIN FROM FALL [id number] 12/05/2015 00:04:00 016 15:50:00 DIS Inpatient JS CUNHA MD [facility] CSD HEART FAILURE,RENAL KAYLEN LURE [id number] 02/17/2015 06:40:00 015 17:20:00 DIS Outpatient SANGITA ALVAREZ FACC, JONAH WHITMAN CC DS [facility] CATH END OF LIFE ICD, CAD,CARDIOMYOPATHY [id number] 03/25/2014 22:20:00 014 11:10:00 DIS Inpatient JS CUNHA MD [facility] CSD RESPIRATORY FAILURE,CHF,HYPERTENSIVE EMERGENCY [id number] 06/21/2013 05:44:00 013 10:03:00 DIS Emergency HALEY MOROCHO MD [facility] ER SOB [id number] 03/13/2013 00:31:00 013 02:32:00 DIS Emergency BLACK LITZY RODRIGUEZ [facility] ER SOA [id number] 03/11/2013 11:59:00 013 23:59:59 CLS Outpatient JOSE DAVID SHARIF MD [facility] PREOP INCISIONAL HERNIA [id number] 04/18/2020 17:39:00 Document Registration [id number] 02/19/2015 14:09:00 Document Registration [id number] 02/16/2012 08:19:00 Document Registration [id number] 02/13/2012 09:56:00 Document Registration [id number] 10/25/2011 23:47:00 Document Registration
--- NOTE | 2020-04-18 19:49 | NUR ---
RECEIVED REPORT FROM ZA BEARD.
[2020-04-18] MEDS ORDERED: PIPERACILLIN/TAZOBACTAM 4.5 GM in NS (IVPB) 100 ML IV ONE (21:15)
[2020-04-18] MEDS ORDERED: fentaNYL INJECTION 100 MCG/2 ML AMP IV PRN (21:15)
[2020-04-18 21:21] VITALS: BP 171/77
[2020-04-18] MEDS ORDERED: ONDANSETRON 4 MG (ZOFRAN) ORAL DISSOLVE TAB PO PRN (21:30)
[2020-04-18] MEDS ORDERED: ACETAMINOPHEN 500 MG TAB (TYLENOL) PO PRN (21:30)
[2020-04-18] MEDS ORDERED: BISACODYL 10 MG SUPP (DULCOLAX) PR PRN (21:30)
[2020-04-18] MEDS ORDERED: ALPRAZolam 0.25 MG (XANAX) TAB PO PRN (21:30)
[2020-04-18] MEDS ORDERED: MELATONIN 3 MG TABLET PO PRN (21:30)
[2020-04-18] MEDS ORDERED: diphenhydrAMINE 25 MG TAB (BENADRYL) PO PRN (21:30)
[2020-04-18] MEDS ORDERED: LOPERAMIDE 2 MG (IMODIUM) TABLET PO PRN (21:30)
[2020-04-18] MEDS ORDERED: ONDANSETRON 4 MG/2 ML (SDV) Z0FRAN IVP PRN (21:30)
[2020-04-18] MEDS ORDERED: DOCUSATE SODIUM 100 MG (COLACE) CAP PO PRN (21:30)
[2020-04-18] MEDS ORDERED: CALCIUM CARBONATE 500 MG (TUMS) TAB.CHEW PO PRN (21:30)
[2020-04-18] MEDS ORDERED: guaiFENesin/CODEINE (ROBITUSSIN AC) 10ML UDC PO PRN (21:30)
[2020-04-18] MEDS ORDERED: PIPERACILLIN/TAZO 4.5 GM VIAL (ZOSYN) IV ONE (21:36)
[2020-04-18] MEDS ORDERED: NS (IVPB) 100 ML ONE (21:37)
[2020-04-18 21:44] VITALS: BP 148/71
[2020-04-18 22:39] VITALS: BP 158/67
[2020-04-18] MEDS ORDERED: RT-ALBUTEROL/IPRATROPIUM 3 ML (DUONEB) VIAL INH PRN (23:00)
[2020-04-18 23:14] LABS: ABG BASE EXCESS -0.2 MMOL/L (-2.5-2.5); ABG OXYGEN SATURATION 94 % (94-100); ABG PCO2 40 MMHG (35-45); ABG PH 7.39 (7.37-7.43); ABG PO2 71 MMHG (79-93); ABG TCO2 25.4 MMOL/L (21.0-31.0)
[2020-04-18 23:15] LABS: ALLENS TEST YES-POS; INSPIRED O2 3L; PATIENT TEMP 36.6; VENTILATOR NO
--- NOTE | 2020-04-18 23:28 | NUR ---
DR. PETERS AT PT BEDSIDE AT THIS TIME.
[2020-04-18 23:29] VITALS: BP 152/76
--- NOTE | 2020-04-18 23:39 | Consultation - Surgery ---
History of Present Illness History of Present Illness Patient Consulted On(elida/time) 04/18/20 23:34 Time Seen by Provider: 23:24 History of Present Illness Surgery asked to consult regarding fall and chest wall trauma. HPI per ED: Left-sided thoracic back pain. He was working on his lawnmower when he fell backwards. No other injury. He only has one leg which is right leg. Location: T-Spine Timing/Duration: 1-2 Days Severity: Moderate Associated Symptoms: denies symptoms Pt denies any SOB or trouble breathing; also denies any hx of previous lung problems. He does have some back pain, but no other complaints at this time. Allergies and Home Medications Allergies Coded Allergies: NKANo Known Allergies (Unverified Allergy, Mild, 07/25/07) Home Medications Amoxicillin/Potassium Clav 1 Each Tablet, 1 EACH PO BID Prescribed by: MARY STREETER on 04/18/201800 Aspirin 81 Mg Tablet.dr, 81 MG PO HS, (Reported) Carvedilol 12.5 Mg Tablet, 12.5 MG PO BID, (Reported) Clopidogrel Bisulfate 75 Mg Tablet, 75 MG PO DAILY, (Reported) Furosemide 40 Mg Tablet, 40 MG PO DAILY, (Reported) Insulin Aspart 300 Units/3 Ml Solution, 10 UNITS SC AC, (Reported) Insulin Detemir 100 Unit/1 Ml Insuln.pen, 20 UNITS SC HS, (Reported) Nortriptyline HCl 50 Mg Capsule, 50 MG PO HS, (Reported) Benjamin-3 Fatty Acids/Fish Oil 1 Each Capsule, 1,200 MG PO BID, (Reported) Pantoprazole Sodium 40 Mg Tablet.dr, 40 MG PO DAILY, (Reported) Prednisone 20 Mg Tab, 40 MG PO DAILY Prescribed by: MARY STREETER on 04/18/201800 Ramipril 5 Mg Capsule, 5 MG PO DAILY, (Reported) Simvastatin 40 Mg Tablet, 40 MG PO HS, (Reported) Patient Home Medication List Home Medication List Reviewed: Yes Past Oclmgrb-Mnuxce-Kvvezu Hx Patient Social History Alcohol Use: Denies Use Recreational Drug Use: No (SMOKES 2-3 CIGS PER DAY) Smoking Status: Former Smoker 2nd Hand Smoke Exposure: No Recent Foreign Travel: No Contact w/Someone Who Travel: No Recent Infectious Disease Expo: No Recent Hopitalizations: Yes Immunizations Up To Date Tetanus Booster (TDap): Unknown PED Vaccines UTD: No Date of Pneumonia Vaccine: Aug 21, 2019 Date of Influenza Vaccine: Aug 07, 2019 Surgeries History of Surgeries: Yes (STENT , PACEMAKER/DEFIBRILLATOR) Surgeries: Gallbladder Respiratory History of Respiratory Disorde: Yes Respiratory Disorders: COPD Cardiovascular History of Cardiac Disorders: Yes Cardiac Disorders: Heart Attack, High Cholesterol, Hypertension Neurological History of Neurological Disord: No Reproductive System Hx Reproductive Disorders: No Sexually Transmitted Disease: No HIV/AIDS: No Gastrointestinal History of Gastrointestinal Di: Yes Gastrointestinal Disorders: Abdominal Hernia, Gastroesophageal Reflux Musculoskeletal History of Musculoskeletal Dis: Yes ( PHANTOM PAIN LEFT LEG) Musculoskeletal Disorders: Amputee Endocrine History of Endocrine Disorders: Yes Endocrine Disorders: Diabetes, Insulin dep HEENT Loss of Vision: Denies Hearing Impairment: Hard of Hearing Cancer History of Cancer: No Psychosocial History of Psychiatric Problem: No Integumentary History of Skin or Integumenta: No Blood Transfusions History of Blood Disorders: No Adverse Reaction to a Blood Tr: No Family Medical History Significant Family History: Heart Disease, Cancer, Diabetes Family Medial History: Cardiovascular disease 19 FATHER, Onset:60 years & older FH: breast cancer 19 MOTHER, Onset:Unknown G8 SISTER, Onset:Unknown FHx: mental retardation G8 SISTER, Onset:Pre- Myocardial infarction G8 BROTHER, Onset:Unknown G8 BROTHER, Onset:Unknown G8 BROTHER, Onset:Unknown G8 BROTHER, Onset:Unknown G8 BROTHER, Onset:Unknown G8 SISTER, Onset:40's - 50 Review of Systems-General Constitutional: No chills, No diaphoresis, No malaise, No weakness EENTM: No blurred vision, No double vision, No mouth pain, No mouth swelling, No epistaxis Respiratory: No cough, No dyspnea on exertion, No short of breath Cardiovascular: No chest pain; Hx of Intervention Gastrointestinal: No abdominal pain, No nausea, No vomiting Genitourinary: No dysuria, No frequency, No hematuria Musculoskeletal: joint pain, joint swelling, muscle pain, muscle stiffness Skin: No change in color, No change in hair/nails Psychiatric/Neurological: Denies Anxiety, Denies Depressed, Denies Seizure, Denies Tremors Other pt does take blood thinner and states he bruises easily Physical Exam-General Problems Physical Exam Vital Signs Vital Signs - First Documented 04/18/20 04/18/20 16:54 16:56 Temp 36.9 Pulse 84 Resp 18 B/P (MAP) 158/67 (97) Pulse Ox 93 O2 Delivery Room Air O2 Flow Rate 2.00 FiO2 92 Capillary Refill : Less Than 3 Seconds General Appearance: no apparent distress, obese Eyes: Bilateral Eye PERRL, Bilateral Eye EOMI HEENT: pharynx normal; No scleral icterus (R), No scleral icterus (L) Neck: non-tender, supple Respiratory: lungs clear, no respiratory distress, no accessory muscle use, decreased breath sounds (distant) Cardiovascular: regular rate, rhythm, no murmur Gastrointestinal: normal bowel sounds, soft, no organomegaly, no pulsatile mass Back: CVA tenderness (L), vertebral tenderness (at site of fall) Extremities: no pedal edema, no calf tenderness, normal capillary refill 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, alert, normal mood/affect, oriented x 3 Skin: normal color, warm/dry Lymphatic: no adenopathy (neck axilla or groin) Data Review Labs Laboratory Tests 04/18/20 16:54: White Blood Count 14.9H, Red Blood Count 4.66, Hemoglobin 14.1, Hematocrit 42, Mean Corpuscular Volume 91, Mean Corpuscular Hemoglobin 30, Mean Corpuscular Hemoglobin Concent 33, Red Cell Distribution Width 14.4, Platelet Count 257, Mean Platelet Volume 11.5H, Neutrophils (%) (Auto) 64, Lymphocytes (%) (Auto) 20, Monocytes (%) (Auto) 11, Eosinophils (%) (Auto) 4, Basophils (%) (Auto) 0, Neutrophils # (Auto) 9.6H, Lymphocytes # (Auto) 3.0, Monocytes # (Auto) 1.7H, Eosinophils # (Auto) 0.6H, Basophils # (Auto) 0.0, Neutrophils % (Manual) 58, Lymphocytes % (Manual) 20, Monocytes % (Manual) 5, Eosinophils % (Manual) 9, Basophils % (Manual) 0, Band Neutrophils 0, Reactive Lymphocytes 8, Anisocytosis SLIGHT, Sodium Level 141, Potassium Level 4.6, Chloride Level 106, Carbon Dioxide Level 21, Anion Gap 14, Blood Urea Nitrogen 47H, Creatinine 2.35H, Estimat Glomerular Filtration Rate 27, BUN/Creatinine Ratio 20, Glucose Level 83, Calcium Level 9.6, Corrected Calcium 9.4, Total Bilirubin 0.4, Aspartate Amino Transf (AST/SGOT) 21, Alanine Aminotransferase (ALT/SGPT) 20, Alkaline Phosphatase 59, B-Type Natriuretic Peptide 20.3, Total Protein 7.8, Albumin 4.2, Procalcitonin 0.13H 04/18/20 18:20: 04/18/20 19:29: Lactic Acid Level 1.41 04/18/20 22:25: Blood Gas Puncture Site LEFT RADIAL, Blood Gas Patient Temperature 36.6, Arterial Blood pH 7.39, Arterial Blood Partial Pressure CO2 40, Arterial Blood Partial Pressure O2 71L, Arterial Blood HCO3 24, Arterial Blood Total CO2 25.4, Arterial Blood Oxygen Saturation 94, Arterial Blood Base Excess -0.2, Lul Test YES-POS, Blood Gas Ventilator Setting NO, Blood Gas Inspired Oxygen 3L Radiology PROCEDURE: CT chest without contrast. TECHNIQUE: Multiple contiguous axial images were obtained through the chest without the use of intravenous contrast. Auto Exposure Controls were utilized during the CT exam to meet ALARA standards for radiation dose reduction. INDICATION: Fall. Back pain. COMPARISON: None. FINDINGS: Cardiac and mediastinal structures show mild cardiomegaly. Indwelling AICD is noted. There is moderate to advanced calcified aortic and coronary atherosclerosis. Right coronary arterial stent is noted. There is no large pericardial effusion. No pathologically enlarged or morphologically abnormal adenopathy is seen within the mediastinum, marisol nor axilla. Evaluation of lung cobos demonstrates background moderate emphysematous disease within the bilateral mid and upper lung cobos. Note is made of a 1.4 x 1.0 cm nodular opacity within the posterior medial right upper lobe (image 39, series 3). Note is made, however, of mild scattered ground glass densities with septal thickening. No other focal consolidation is seen. There is no large effusion or pneumothorax on either side. Osseous structures show age-related degenerative changes. No acute bony abnormalities are seen. Included portions of the upper abdomen show no acute abnormality. IMPRESSION: 1. No acute cardiopulmonary process. 2. Mild cardiomegaly with probable interstitial pulmonary edema. 3. Moderate emphysematous disease within the bilateral mid and upper lung cobos. 4. Nodular density within the posterior medial margins of the right upper lobe. Findings could be on the basis of focal inflammatory or infectious process, although true soft tissue nodule cannot be excluded. Further characterization with CT PET versus CT-guided biopsy is advised. Assessment/Plan Assessment/Plan Assessment/Plan Trauma - fall w/o LOC Chest wall contusion - no rib fx or pulmonary contusion seen Plan is to monitor overnight and get CXR in am. Fluids should be held to under 1L overnight to try and avoid worsening any pulmonary contusion (although none seen on CT). Pain control. I will follow along. Clinical Quality Measures DVT/VTE Risk/Contraindication: Risk Factor Score Per Nursin RFS Level Per Nursing on Admit: 4+=Very High WES PETERS DO Apr 18, 2020 23:39
--- NOTE | 2020-04-18 23:58 | NUR ---
THIS RN CONTACTED PT'S TO PROVIDE UPDATE.
[2020-04-19] MEDS ORDERED: PIPERACILLIN/TAZO 4.5 GM VIAL (ZOSYN) IV ONE (01:09)
[2020-04-19] MEDS ORDERED: NS (IVPB) 100 ML ONE (01:09)
[2020-04-19 03:31] VITALS: BP 166/72
[2020-04-19] MEDS: PIPERACILLIN/TAZOBACTAM (BULK) 4.5 GM in NS (IVPB) 100 ML IV SCH ×3 (03:35→20:03)
[2020-04-19 03:43] LABS: BASOPHILS % (AUTO) 0 % (0-10); EOSINOPHILS % (AUTO) 0 % (0-10); HEMATOCRIT 42 % (40-54); HEMOGLOBIN 13.7 G/DL (13.3-17.7); LYMPHOCYTES # (AUTO) 1.2 X 10^3 (1.0-4.0); LYMPHOCYTES % (AUTO) 12 % (12-44); MEAN CORPUSCULAR HEMOGLOBIN 30 PG (25-34); MEAN CORPUSCULAR HGB CONC 33 G/DL (32-36); MEAN CORPUSCULAR VOLUME 91 FL (80-99); MEAN PLATELET VOLUME 11.3 FL (7.4-10.4); MONOCYTES # (AUTO) 0.1 X 10^3 (0.0-1.0); MONOCYTES % (AUTO) 1 % (0-12); NEUTROPHILS # (AUTO) 8.5 X 10^3 (1.8-7.8); NEUTROPHILS % (AUTO) 87 % (42-75); PLATELET COUNT 199 10^3/uL (130-400); RED CELL DISTRIBUTION WIDTH 14.4 % (10.0-14.5); WHITE BLOOD COUNT 9.7 10^3/uL (4.3-11.0)
[2020-04-19 04:02] LABS: ALBUMIN 4.1 GM/DL (3.2-4.5); BILIRUBIN,TOTAL 0.6 MG/DL (0.1-1.0); CALCIUM 9.5 MG/DL (8.5-10.1); CREATININE SERUM 2.65 MG/DL (0.60-1.30); MAGNESIUM 1.9 MG/DL (1.6-2.4); PHOSPHORUS 3.7 MG/DL (2.3-4.7); POTASSIUM 5.4 MMOL/L (3.6-5.0); TOTAL PROTEIN 7.6 GM/DL (6.4-8.2)
[2020-04-19] MEDS: inSUlin ASPART (NovoLOG) 1 UNIT/0.01 ML (CHARGE PER UNIT) SC SCH ×5 (05:37→20:22)
--- NOTE | 2020-04-19 06:10 | History & Physical-Hospitalist ---
History of Present Illness HPI/Chief Complaint CC: Hypoxia following fall out of wheelchair HPI: This is a 74yoWM clinic patient of [facility] who has a h/o CRI, PVD, CAD and COPD who is known to me from prior clinic establishment years ago who presents to the [facility] ER with left sided chest pain and rib pain following a fall out of wheelchair at home. He refused to go to ER originally but then could not stand the pain so he came in and then he refused admit but he could not move and function at home so he reluctantly allowed admit and PNA was dx with hypoxia and Pulmonology has provided expertise. Currently the patient is tolerable but refuses to get OOB due to pain increases. Source: patient Exam Limitations: no limitations Date Seen 04/19/20 Time Seen by a Provider: 09:00 Attending Physician Caroline Escobedo DO PCP Harris Barba MD Referring Physician Date of Admission Apr 18, 2020 at 19:00 Home Medications & Allergies Home Medications Reviewed patient Home Medication Reconciliation performed by pharmacy medication reconciliations transportation refrigeration technician and/or nursing. Patients Allergies have been reviewed. Allergies Allergies Coded Allergies NKANo Known Allergies (Unverified Allergy, Mild, 07/25/07) Past Pkarwkn-Zaexif-Rvcqjk Hx Past Med/Social Hx: Reviewed Nursing Past Med/Soc Hx, Reviewed and Corrections made Patient Social History Marrital Status: Employed/Student: retired Alcohol Use: Denies Use Recreational Drug Use: No (SMOKES 2-3 CIGS PER DAY) Smoking Status: Former Smoker 2nd Hand Smoke Exposure: No Recent Foreign Travel: No Contact w/other who traveled: No Recent Hopitalizations: Yes Recent Infectious Disease Expo: No Immunizations Up To Date Tetanus Booster (TDap): Unknown Pediatric: No Date of Pneumonia Vaccine: Aug 21, 2019 Date of Influenza Vaccine: Aug 07, 2019 Past Medical History Surgeries: Gallbladder Respiratory: COPD, Sleep Apnea Currently Using CPAP: No Currently Using BIPAP: No Cardiac: Coronary Artery Disease, Heart Attack, High Cholesterol, Hypertension, Peripheral Vascular Neurological: Neuropathy Reproductive: No Sexually Transmitted Disease: No HIV/AIDS: No Gastrointestinal: Abdominal Hernia, Gastroesophageal Reflux Musculoskeletal: Amputee Endocrine: Diabetes, Insulin dep Loss of Vision: Denies Hearing Impairment: Hard of Hearing History of Blood Disorders: No Adverse Reaction to Blood Ivory: No Family History Cardiovascular disease 19 FATHER, Onset:60 years & older FH: breast cancer 19 MOTHER, Onset:Unknown G8 SISTER, Onset:Unknown FHx: mental retardation G8 SISTER, Onset:Pre- Myocardial infarction G8 BROTHER, Onset:Unknown G8 BROTHER, Onset:Unknown G8 BROTHER, Onset:Unknown G8 BROTHER, Onset:Unknown G8 BROTHER, Onset:Unknown G8 SISTER, Onset:40's - 50 Heart Disease, Cancer, Diabetes Review of Systems Constitutional: see HPI, weakness Respiratory: dyspnea on exertion Musculoskeletal: back pain Psychiatric/Neurological: Anxiety Physical Exam Physical Exam Vital Signs Vital Signs - First Documented 04/18/20 04/18/20 16:54 16:56 Temp 36.9 Pulse 84 Resp 18 B/P (MAP) 158/67 (97) Pulse Ox 93 O2 Delivery Room Air O2 Flow Rate 2.00 FiO2 92 Capillary Refill : Less Than 3 Seconds Height, Weight, BMI Height: 5'9.00" Weight: 220lbs. 0.0oz. 99.174494os; 32.64 BMI Method:Stated General Appearance: No Apparent Distress, Chronically ill, Obese Eyes: Right Eye Normal Inspection, Right Eye PERRL HEENT: PERRL/EOMI, Normal ENT Inspection, Pharynx Normal, Moist Mucous Membranes Neck: Full Range of Motion, Normal Inspection, Non Tender Respiratory: Chest Non Tender, No Accessory Muscle Use, No Respiratory Distress, Decreased Breath Sounds Cardiovascular: Regular Rate, Rhythm, No Edema, No Gallop, No JVD, No Murmur, Normal Peripheral Pulses Gastrointestinal: Normal Bowel Sounds, No Organomegaly, No Pulsatile Mass, Non Tender, Soft Back: Normal Inspection, No CVA Tenderness, No Vertebral Tenderness Extremity: Normal Capillary Refill, Normal Inspection, Normal Range of Motion, Non Tender, No Calf Tenderness, No Pedal Edema, Other (left AKA) Neurologic/Psychiatric: Alert, Oriented x3, No Motor/Sensory Deficits, Normal Mood/Affect Skin: Normal Color, Warm/Dry Lymphatic: No Adenopathy Results Results/Procedures Labs Laboratory Tests 04/18/20 16:54 04/19/20 03:34 Patient resulted labs reviewed. Assessment/Plan Admission Diagnosis Assessment: Pneumonia with hypoxia Zosyn maintained while COVID-19 swab returns Metabolic acidosis likely due to CRI Hyperkalemia due to CRI and acute illness CHFAE EF 30-35% Anemia of kidney disease DM PVD Left AKA remote hx COPD Defibrillator in place CAD Plan: Abx COVID-19 swab Home meds O2 Pain control Pulmo Cards Trauma Admission Status: Inpatient Order (span 2 midnights) Reason for Inpatient Admission: PNA with hypoxia Diagnosis/Problems Diagnosis/Problems (1) Hypoxia Status: Acute (2) Contusion of back Status: Acute (3) Fall from wheelchair Status: Acute Clinical Quality Measures DVT/VTE Risk/Contraindication: Risk Factor Score Per Nursin RFS Level Per Nursing on Admit: 4+=Very High CAROLINE ESCOBEDO DO Apr 19, 2020 06:10
[2020-04-19] MEDS ORDERED: NS IV 1000 ML 1,000 ML IV SCH (06:30)
--- NOTE | 2020-04-19 06:35 | Pulmonary Consultation ---
History of Present Illness History of Present Illness Date Seen by Provider: Apr 19, 2020 Time Seen by Provider: 06:31 Date of Admission Allergies and Home Medications Allergies Coded Allergies: NKANo Known Allergies (Unverified Allergy, Mild, 07/25/07) Home Medications Amoxicillin/Potassium Clav 1 Each Tablet, 1 EACH PO BID Prescribed by: AMRY STREETER on 04/18/20 180 Aspirin 81 Mg Tablet.dr, 81 MG PO HS, (Reported) Carvedilol 12.5 Mg Tablet, 12.5 MG PO BID, (Reported) Clopidogrel Bisulfate 75 Mg Tablet, 75 MG PO DAILY, (Reported) Furosemide 40 Mg Tablet, 40 MG PO DAILY, (Reported) Insulin Aspart 300 Units/3 Ml Solution, 10 UNITS SC AC, (Reported) Insulin Detemir 100 Unit/1 Ml Insuln.pen, 20 UNITS SC HS, (Reported) Nortriptyline HCl 50 Mg Capsule, 50 MG PO HS, (Reported) Kenvir-3 Fatty Acids/Fish Oil 1 Each Capsule, 1,200 MG PO BID, (Reported) Pantoprazole Sodium 40 Mg Tablet.dr, 40 MG PO DAILY, (Reported) Prednisone 20 Mg Tab, 40 MG PO DAILY Prescribed by: MARY STREETER on 04/18/20 180 Ramipril 5 Mg Capsule, 5 MG PO DAILY, (Reported) Simvastatin 40 Mg Tablet, 40 MG PO HS, (Reported) Past Nuhnigx-Owiito-Hercwr Hx Patient Social History Alcohol Use: Denies Use Recreational Drug Use: No (SMOKES 2-3 CIGS PER DAY) Smoking Status: Former Smoker 2nd Hand Smoke Exposure: No Recent Foreign Travel: No Contact w/Someone Who Travel: No Recent Infectious Disease Expo: No Recent Hopitalizations: Yes Physical Abuse: No Sexual Abuse: No Mistreated: No Immunizations Up To Date Tetanus Booster (TDap): Unknown PED Vaccines UTD: No Date of Pneumonia Vaccine: Aug 21, 2019 Date of Influenza Vaccine: Aug 07, 2019 Past Medical History Surgeries: Yes (STENT , PACEMAKER/DEFIBRILLATOR) Gallbladder Respiratory: Yes COPD Currently Using CPAP: No Currently Using BIPAP: No Cardiac: Yes Heart Attack, High Cholesterol, Hypertension Neurological: No Reproductive Disorders: No Sexually Transmitted Disease: No HIV/AIDS: No Gastrointestinal: Yes Abdominal Hernia, Gastroesophageal Reflux Musculoskeletal: Yes ( PHANTOM PAIN LEFT LEG) Amputee Endocrine: Yes Diabetes, Insulin dep Loss of Vision: Denies Hearing Impairment: Hard of Hearing Cancer: No Psychosocial: No Integumentary: No Blood Disorders: No Adverse Reaction/Blood Tranf: No Family Medical History Cardiovascular disease 19 FATHER, Onset:60 years & older FH: breast cancer 19 MOTHER, Onset:Unknown G8 SISTER, Onset:Unknown FHx: mental retardation G8 SISTER, Onset:Pre- Myocardial infarction G8 BROTHER, Onset:Unknown G8 BROTHER, Onset:Unknown G8 BROTHER, Onset:Unknown G8 BROTHER, Onset:Unknown G8 BROTHER, Onset:Unknown G8 SISTER, Onset:40's - 50 Heart Disease, Cancer, Diabetes Review of Systems Time Seen by Provider: 06:31 Sepsis Event Evaluation Height, Weight, BMI Height: 5'9.00" Weight: 220lbs. 0.0oz. 99.547988ob; 32.64 BMI Method:Stated Exam Exam Vital Signs Date Time Temp Pulse Resp B/P (MAP) Pulse Ox O2 Delivery O2 Flow Rate FiO2 04/19/20 03:38 96 Nasal Cannula 3.00 92 04/19/20 03:31 36.6 81 18 166/72 (103) 93 Nasal Cannula 3.00 04/19/20 01:00 80 04/19/20 00:00 96 Nasal Cannula 3.00 92 04/18/20 23:29 36.1 81 18 152/76 (101) 96 Nasal Cannula 3.00 04/18/20 22:39 36.9 84 95 04/18/20 21:44 82 18 148/71 (96) 92 Nasal Cannula 2.00 04/18/20 21:21 36.6 82 20 171/77 93 Nasal Cannula 2.00 04/18/20 21:14 81 04/18/20 21:00 Nasal Cannula 2.00 04/18/20 20:04 36.9 78 18 153/71 (97) 97 Nasal Cannula 2.00 04/18/20 16:56 94 Nasal Cannula 2.00 92 04/18/20 16:54 36.9 84 18 158/67 (97) 93 Room Air I & O 04/19/20 07:00 Intake Total 205 ml Output Total 925 ml Balance -720 ml Height & Weight Height: 5'9.00" Weight: 220lbs. 0.0oz. 99.348708eh; 32.64 BMI Method:Stated General Appearance: WD/WN, Moderate Distress, Obese Neck: Full Range of Motion, Normal Inspection Respiratory: Normal Breath Sounds, No Accessory Muscle Use, No Respiratory Distress Capillary Refill: Less Than 3 Seconds Gastrointestinal: normal bowel sounds, soft, no organomegaly, no pulsatile mass Neurologic/Psychiatric: Alert, Oriented x3 Skin: Normal Color Results Lab Laboratory Tests 04/18/20 16:54 04/19/20 03:34 Assessment/Plan Assessment/Plan Pneumonia with hypoxia -Continue Zosyn -COVID is pending -oxygen -Amaya cultures penidng Metabolic acidosis -Check LA -Start IVF -Monitor Hyperkalemia -Repeat Labs at 1500 CHFAE EF 30-35% Acute renal failure vs chronic -monitor anemia- monitor DM LAUREN MURRELL DO Apr 19, 2020 06:35
[2020-04-19 08:00] VITALS: BP 168/78
--- NOTE | 2020-04-19 08:00 | NUR ---
DENIES PAIN AT REST, BUT REFUSES TO GET IN CHAIR BECAUSE AFRAID "BACK WILL HURT TOO MUCH". IV BOLUS CONTINUES. O2 ON AT 1L WITH SAT IN LOW 90'S.
--- NOTE | 2020-04-19 08:07 | Diagnostic Imaging Report ---
INDICATION: Pulmonary infiltrates. Time of exam: 3:59 AM Correlation is made with prior chest from 12/04/2015. The cardiac defibrillator is in place. There are some interstitial changes throughout both lungs, acuity indeterminate. No parenchymal consolidation is seen. There is no effusion or pneumothorax. IMPRESSION: Interstitial lung disease, acuity indeterminate. Dictated by: Dictated on workstation # [id number]
[2020-04-19] MEDS: NS IV 1000 ML 1,000 ML IV SCH ×3 (08:29→18:01)
[2020-04-19] MEDS: ENOXAPARIN 30 MG/0.3 ML (LOVENOX) SYR SC SCH (08:39)
[2020-04-19] MEDS: SENNA W/DOCUSATE (SENOKOT S) TABLET PO SCH ×2 (08:40→20:24)
[2020-04-19] MEDS: DOCUSATE SODIUM 100 MG (COLACE) CAP PO SCH ×2 (08:40→20:24)
[2020-04-19] MEDS: HYDROcodone/APAP 5 MG/325 MG (LORTAB) TAB PO PRN (08:41)
--- NOTE | 2020-04-19 09:30 | NUR ---
DR. SANTIAGO HERE TO SEE PATIENT.
[2020-04-19 11:39] VITALS: BP 149/73
--- NOTE | 2020-04-19 13:09 | Progress Note - Surgery ---
Subjective Time Seen by a Provider: 11:29 Subjective/Events-last exam Pt seen and examined, denies any new problems. Thinks his side/back pain is better. Review of Systems General: No Chills, No Night Sweats Pulmonary: No Dyspnea, No Cough; Pleuritic Chest Pain Cardiovascular: No: Palpitations, Edema Gastrointestinal: No: Nausea, Vomiting, Abdominal Pain Focused Exam Lactate Level 04/18/20 19:29: Lactic Acid Level 1.41 04/19/20 06:56: Lactic Acid Level 1.95 Objective Exam Vital Signs Date Time Temp Pulse Resp B/P (MAP) Pulse Ox O2 Delivery O2 Flow Rate FiO2 04/19/20 12:20 87 04/19/20 11:39 86 18 149/73 (98) 93 Nasal Cannula 1.00 04/19/20 11:32 94 Nasal Cannula 1.00 04/19/20 09:00 94 Nasal Cannula 1.00 92 04/19/20 08:00 37.0 79 18 168/78 (108) 94 Nasal Cannula 1.00 04/19/20 08:00 96 Nasal Cannula 1.00 04/19/20 07:00 84 04/19/20 03:38 96 Nasal Cannula 3.00 92 04/19/20 03:31 36.6 81 18 166/72 (103) 93 Nasal Cannula 3.00 04/19/20 01:00 80 04/19/20 00:00 96 Nasal Cannula 3.00 92 04/18/20 23:29 36.1 81 18 152/76 (101) 96 Nasal Cannula 3.00 04/18/20 22:39 36.9 84 95 04/18/20 21:44 82 18 148/71 (96) 92 Nasal Cannula 2.00 04/18/20 21:21 36.6 82 20 171/77 93 Nasal Cannula 2.00 04/18/20 21:14 81 04/18/20 21:00 Nasal Cannula 2.00 04/18/20 20:04 36.9 78 18 153/71 (97) 97 Nasal Cannula 2.00 04/18/20 16:56 94 Nasal Cannula 2.00 92 04/18/20 16:54 36.9 84 18 158/67 (97) 93 Room Air I & O 04/19/20 07:00 Intake Total 205 ml Output Total 925 ml Balance -720 ml Capillary Refill : Less Than 3 SecondsLess Than 3 Seconds General Appearance: No Apparent Distress, WD/WN, Obese Respiratory: Normal Breath Sounds, No Accessory Muscle Use, No Respiratory Distress Cardiovascular: Regular Rate, Rhythm, No Murmur Gastrointestinal: normal bowel sounds, soft, no organomegaly, no pulsatile mass Neurologic/Psychiatric: Alert, Oriented x3 Results Lab Laboratory Tests 04/18/20 16:54: White Blood Count 14.9H, Red Blood Count 4.66, Hemoglobin 14.1, Hematocrit 42, Mean Corpuscular Volume 91, Mean Corpuscular Hemoglobin 30, Mean Corpuscular Hemoglobin Concent 33, Red Cell Distribution Width 14.4, Platelet Count 257, Mean Platelet Volume 11.5H, Neutrophils (%) (Auto) 64, Lymphocytes (%) (Auto) 20, Monocytes (%) (Auto) 11, Eosinophils (%) (Auto) 4, Basophils (%) (Auto) 0, Neutrophils # (Auto) 9.6H, Lymphocytes # (Auto) 3.0, Monocytes # (Auto) 1.7H, Eosinophils # (Auto) 0.6H, Basophils # (Auto) 0.0, Neutrophils % (Manual) 58, Lymphocytes % (Manual) 20, Monocytes % (Manual) 5, Eosinophils % (Manual) 9, Basophils % (Manual) 0, Band Neutrophils 0, Reactive Lymphocytes 8, Anisocytosis SLIGHT, Sodium Level 141, Potassium Level 4.6, Chloride Level 106, Carbon Dioxide Level 21, Anion Gap 14, Blood Urea Nitrogen 47H, Creatinine 2.35H, Estimat Glomerular Filtration Rate 27, BUN/Creatinine Ratio 20, Glucose Level 83, Calcium Level 9.6, Corrected Calcium 9.4, Total Bilirubin 0.4, Aspartate Amino Transf (AST/SGOT) 21, Alanine Aminotransferase (ALT/SGPT) 20, Alkaline Phosphatase 59, B-Type Natriuretic Peptide 20.3, Total Protein 7.8, Albumin 4.2, Procalcitonin 0.13H 04/18/20 18:20: 04/18/20 19:29: Lactic Acid Level 1.41 04/18/20 22:25: Blood Gas Puncture Site LEFT RADIAL, Blood Gas Patient Temperature 36.6, Arterial Blood pH 7.39, Arterial Blood Partial Pressure CO2 40, Arterial Blood Partial Pressure O2 71L, Arterial Blood HCO3 24, Arterial Blood Total CO2 25.4, Arterial Blood Oxygen Saturation 94, Arterial Blood Base Excess -0.2, Lul Test YES-POS, Blood Gas Ventilator Setting NO, Blood Gas Inspired Oxygen 3L 04/19/20 03:34: White Blood Count 9.7, Red Blood Count 4.54, Hemoglobin 13.7, Hematocrit 42, Mean Corpuscular Volume 91, Mean Corpuscular Hemoglobin 30, Mean Corpuscular Hemoglobin Concent 33, Red Cell Distribution Width 14.4, Platelet Count 199, Mean Platelet Volume 11.3H, Neutrophils (%) (Auto) 87H, Lymphocytes (%) (Auto) 12, Monocytes (%) (Auto) 1, Eosinophils (%) (Auto) 0, Basophils (%) (Auto) 0, Neutrophils # (Auto) 8.5H, Lymphocytes # (Auto) 1.2, Monocytes # (Auto) 0.1, Eosinophils # (Auto) 0.0, Basophils # (Auto) 0.0, Sodium Level 139, Potassium Level 5.4H, Chloride Level 102, Carbon Dioxide Level 18L, Anion Gap 19H, Blood Urea Nitrogen 54H, Creatinine 2.65H, Estimat Glomerular Filtration Rate 24, BUN/Creatinine Ratio 20, Glucose Level 316H, Calcium Level 9.5, Corrected Calcium 9.4, Phosphorus Level 3.7, Magnesium Level 1.9, Total Bilirubin 0.6, Aspartate Amino Transf (AST/SGOT) 21, Alanine Aminotransferase (ALT/SGPT) 24, Alkaline Phosphatase 63, Total Protein 7.6, Albumin 4.1 04/19/20 06:56: Lactic Acid Level 1.95 04/19/20 10:52: Glucometer 387H Assessment/Plan Assessment/Plan Assessment/Plan Trauma - fall w/o LOC Chest wall contusion - no rib fx or pulmonary contusion seen Recheck CXR, can increase fluids now and continue pain control. I will follow along. Clinical Quality Measures DVT/VTE Risk/Contraindication: Risk Factor Score Per Nursin RFS Level Per Nursing on Admit: 4+=Very High WES PETERS DO Apr 19, 2020 13:09
[2020-04-19] MEDS ORDERED: CLOPIDOGREL 75 MG (PLAVIX) TABLET PO ONE (15:00)
--- NOTE | 2020-04-19 15:00 | NUR ---
CONTINUES TO REFUSE TO GET OUT OF BED. HAS BEEN USING THE URINAL. AND DAUGHTER UPDATED WITH CONDITION SEVERAL TIMES TODAY.
[2020-04-19] MEDS ORDERED: ALPRAZolam 0.5 MG (XANAX) TAB PO PRN (15:15)
[2020-04-19] MEDS ORDERED: HYDROcodone/APAP 5 MG/325 MG (LORTAB) TAB PO PRN (15:15)
[2020-04-19 15:41] VITALS: BP 132/66
[2020-04-19] MEDS: PANTOPRAZOLE 40 MG (PROTONIX) TAB PO SCH (16:09)
[2020-04-19 16:15] LABS: POTASSIUM 5.1 MMOL/L (3.6-5.0)
[2020-04-19 16:20] LABS: CREATININE SERUM 2.72 MG/DL (0.60-1.30)
--- NOTE | 2020-04-19 17:00 | NUR ---
DR. SANTIAGO NOTIFIED OF BLOOD SUGARS OVER 300 TODAY. WILL START BACK ON HOME INSULIN.
--- NOTE | 2020-04-19 17:40 | NUR ---
DR. BEATTY WAS TEXTED THAT OUTPUT TODAY WAS 550 CC AND TOTAL PO/IV INTAKE WAS 2300 CC. 1500 LABS IMPROVED. QUESTION WHETHER TO CONTINUE IV FLUIDS AT 150 CC/HR.
[2020-04-19 20:06] VITALS: BP 152/61
[2020-04-19] MEDS: RT-ALBUTEROL INHALER HFA (VENTOLIN HFA) 8 GM IH SCH (20:22)
[2020-04-19] MEDS ORDERED: RT-ALBUTEROL/IPRATROPIUM 3 ML (DUONEB) VIAL INH SCH (21:00)
[2020-04-19 23:35] VITALS: BP 135/69
[2020-04-20] MEDS: NS IV 1000 ML 1,000 ML IV SCH ×3 (00:19→12:36)
[2020-04-20] MEDS: HYDROcodone/APAP 5 MG/325 MG (LORTAB) TAB PO PRN ×2 (02:09→09:43)
[2020-04-20] MEDS: PIPERACILLIN/TAZOBACTAM (BULK) 4.5 GM in NS (IVPB) 100 ML IV SCH ×3 (05:02→21:36)
[2020-04-20] MEDS: inSUlin ASPART (NovoLOG) 1 UNIT/0.01 ML (CHARGE PER UNIT) SC SCH ×7 (06:20→21:37)
--- NOTE | 2020-04-20 06:35 | Pulmonary Progress Note ---
Subjective Time Seen by a Provider: 06:34 Subjective/Events-last exam Pt appears improved. Sepsis Event Evaluation Height, Weight, BMI Height: 5'9.00" Weight: 220lbs. 0.0oz. 99.520408xg; 32.64 BMI Method:Stated Focused Exam Lactate Level 04/18/20 19:29: Lactic Acid Level 1.41 04/19/20 06:56: Lactic Acid Level 1.95 Exam Exam Vital Signs Date Time Temp Pulse Resp B/P (MAP) Pulse Ox O2 Delivery O2 Flow Rate FiO2 04/20/20 04:00 36.5 96 04/20/20 04:00 Nasal Cannula 1.00 04/20/20 01:00 80 04/20/20 00:00 Nasal Cannula 1.00 04/19/20 23:35 36.5 68 16 135/69 (91) 94 Nasal Cannula 1.00 04/19/20 21:00 Nasal Cannula 1.00 04/19/20 21:00 Nasal Cannula 1.00 04/19/20 20:30 Nasal Cannula 1.00 04/19/20 20:06 36.7 77 16 152/61 (91) 93 Nasal Cannula 1.00 04/19/20 20:00 Nasal Cannula 1.00 04/19/20 19:00 85 04/19/20 15:54 Nasal Cannula 1.00 04/19/20 15:41 36.4 83 18 132/66 (88) 94 Nasal Cannula 1.00 04/19/20 12:20 87 04/19/20 11:39 36.8 86 18 149/73 (98) 93 Nasal Cannula 1.00 04/19/20 11:32 94 Nasal Cannula 1.00 04/19/20 09:00 94 Nasal Cannula 1.00 92 04/19/20 08:00 37.0 79 18 168/78 (108) 94 Nasal Cannula 1.00 04/19/20 08:00 96 Nasal Cannula 1.00 04/19/20 07:00 84 I & O 04/20/20 07:00 Intake Total 4950 ml Output Total 800 ml Balance 4150 ml Height & Weight Height: 5'9.00" Weight: 220lbs. 0.0oz. 99.546374ua; 32.64 BMI Method:Stated General Appearance: No Apparent Distress, Chronically ill, Obese HEENT: PERRL/EOMI, Normal ENT Inspection, Pharynx Normal, Moist Mucous Membranes Neck: Full Range of Motion, Normal Inspection, Non Tender Respiratory: Chest Non Tender, No Accessory Muscle Use, No Respiratory Distress, Decreased Breath Sounds Cardiovascular: Regular Rate, Rhythm, No Edema, No Gallop, No JVD, No Murmur, Normal Peripheral Pulses Capillary Refill: Less Than 3 Seconds Gastrointestinal: normal bowel sounds, soft, no organomegaly, no pulsatile mass Extremity: Normal Capillary Refill, Normal Inspection, Normal Range of Motion, Non Tender, No Calf Tenderness, No Pedal Edema, Other (left AKA) Neurologic/Psychiatric: Alert, Oriented x3, No Motor/Sensory Deficits, Normal Mood/Affect Skin: Normal Color, Warm/Dry Lymphatic: No Adenopathy Results Lab Laboratory Tests 04/18/20 16:54 04/19/20 03:34 04/19/20 15:55 Assessment/Plan Assessment/Plan Pneumonia with hypoxia -Continue Zosyn -COVID is pending -Repeat labs -oxygen -Amaya cultures penidng Metabolic acidosis -Check LA -Start IVF -Monitor Hyperkalemia -Repeat Labs at 1500 CHFAE EF 30-35% Acute renal failure vs chronic -monitor anemia- monitor DM LAUREN MURRELL DO Apr 20, 2020 06:35
[2020-04-20 06:57] LABS: BASOPHILS % (AUTO) 0 % (0-10); EOSINOPHILS # (AUTO) 0.1 10^3/uL (0.0-0.3); EOSINOPHILS % (AUTO) 1 % (0-10); HEMATOCRIT 37 % (40-54); HEMOGLOBIN 12.5 G/DL (13.3-17.7); LYMPHOCYTES # (AUTO) 2.3 X 10^3 (1.0-4.0); LYMPHOCYTES % (AUTO) 22 % (12-44); MEAN CORPUSCULAR HEMOGLOBIN 31 PG (25-34); MEAN CORPUSCULAR HGB CONC 34 G/DL (32-36); MEAN CORPUSCULAR VOLUME 93 FL (80-99); MONOCYTES # (AUTO) 0.9 X 10^3 (0.0-1.0); MONOCYTES % (AUTO) 9 % (0-12); NEUTROPHILS # (AUTO) 7.2 X 10^3 (1.8-7.8); NEUTROPHILS % (AUTO) 68 % (42-75); PLATELET COUNT 158 10^3/uL (130-400); RED CELL DISTRIBUTION WIDTH 14.2 % (10.0-14.5); WHITE BLOOD COUNT 10.6 10^3/uL (4.3-11.0)
[2020-04-20 07:19] LABS: ALBUMIN 3.5 GM/DL (3.2-4.5); BILIRUBIN,TOTAL 0.4 MG/DL (0.1-1.0); CALCIUM 8.4 MG/DL (8.5-10.1); CREATININE SERUM 2.46 MG/DL (0.60-1.30); POTASSIUM 4.6 MMOL/L (3.6-5.0); TOTAL PROTEIN 6.4 GM/DL (6.4-8.2)
[2020-04-20 07:56] VITALS: BP 147/70
[2020-04-20] MEDS: RT-ALBUTEROL INHALER HFA (VENTOLIN HFA) 8 GM IH SCH ×2 (08:56→18:27)
[2020-04-20] MEDS: PANTOPRAZOLE 40 MG (PROTONIX) TAB PO SCH (09:43)
[2020-04-20] MEDS: DOCUSATE SODIUM 100 MG (COLACE) CAP PO SCH ×2 (09:43→21:37)
[2020-04-20] MEDS: CLOPIDOGREL 75 MG (PLAVIX) TABLET PO SCH (09:43)
[2020-04-20] MEDS: ENOXAPARIN 30 MG/0.3 ML (LOVENOX) SYR SC SCH (09:43)
[2020-04-20] MEDS: SENNA W/DOCUSATE (SENOKOT S) TABLET PO SCH ×2 (09:43→21:37)
--- NOTE | 2020-04-20 09:43 | Physical Therapy Evaluation ---
PT Evaluation-General Medical Diagnosis Admission Date Apr 18, 2020 at 19:00 Medical Diagnosis: left chest wall pain/hypoxia Onset Date: Apr 18, 2020 Therapy Diagnosis Therapy Diagnosis: debility Height/Weight Height (Feet): 5 Height (Inches): 9.00 Weight (Pounds): 220 Weight (Ounces): 0.0 Precautions Precautions/Isolations: Fall Prevention, Standard Precautions Referral Physician: Gregg Reason for Referral: Evaluation/Treatment Medical History Pertinent Medical History: CAD, COPD, DM, HTN, [place], PVD Additional Medical History left AKA Current History ER secondary to fall out of w/c Reviewed History: Yes Social History Home: Single Level Current Living Status: Spouse Entry Into Home: Ramp Prior Prior Level of Function SCALE: Activities may be completed with or without assistive devices. 8-Wdeizijrjh-pcodhqz completes the activity by him/herself with no assistance from a helper. 5-Set-up or Clean-up Assistance-helper sets up or cleans up; patient completes activity. [place] assists only prior to or following the activity. 4-Supervision or Touching Assistance-helper provides verbal cues and/or touching/steadying and/or contact guard assistance as patient completes activity. Assistance may be provided throughout the activity or intermittently. 3-Partial/Moderate Assistance-helper does LESS THAN HALF the effort. [place] lifts, holds or supports trunk or limbs, but provides less than half the effort. 2-Substantial/Maximal Assistance-helper does MORE THAN HALF the effort. [place] lifts or holds trunk or limbs and provides more than half the effort. 9-Royxcgskc-tdcnsy does ALL the effort. Patient does none of the effort to complete the activity. Or, the assistance of 2 or more helpers is required for the patient to complete the activity. If activity was not attempted, code reason: 7-Patient Refused. 9-Not Applicable-not attempted and the patient did not perform the activity before the current illness, exacerbation or injury. 10-Not Attempted due to Environmental Limitations-(lack of equipment, weather restraints, etc.). 88-Not Attempted due to Medical Conditions or Safety Concerns. Bed Mobility: 6 Transfers (B,C,W/C): 6 Gait: 9 Stairs: 9 Wheelchair Mobility: 6 Indoor Mobility (Ambulation): Not [place] Stairs: Not [place] Prior Devices Use: Manual wheelchair patient does not have prosthesis for left AKA and is non ambulatory PLOF PT Evaluation-Current Subjective Patient c/o 10/10 left side pain with meds issued. Pain Numeric Pain Scale: 10-Worst Possible Pain Location: Left Location Body Site: Side Pain Description: Acute Objective Patient Orientation: Normal For Age Attachments: Oxygen, IV ROM/Strength ROM Lower Extremities right LE WFL Strength Lower Extremities right LE 4-/5 grossly Integumentary/Posture Integumentary refer to nursing notes Bowel Incontinence: No Bladder Incontinence: No Posture WFL Neuromuscular (Tone, Coordination, Reflexes) grossly intact Sensory Vision: Functional Hearing: Functional Sensation Right Lower Extremit: Impaired Transfers Roll Left to Right (QC): 1 Sit to Lying (QC): 1 Lying to Sitting/Side of Bed(Q: 2 Sit to Stand (QC): 88 Chair/Nxo-rh-Minhm Xfer(QC): 88 patient has difficulty with committing to movement due to left side pain. Patient spends several minutes yelling in pain with minimal effort of movement. Patient did sit EOB x 10 min independently Gait Does the Patient Walk?: No and Walking Goal NOT indicated Wheelchair Training Does the Pt Use a Wheelchair?: Yes Balance Sitting Static: Normal Sitting Dynamic: Normal Assessment/Needs 74 y.o. male, with 10/10 left side pain limiting all mobility, will benefit from skilled PT to address functional mobility to ensure safe return to home. Patient educated on importance of OOB activity to prevent possible negative side effects (pneumonia) by remaining still in bed. Patient voices understanding, however, continued to decline OOB activity. Rehab Potential: Fair Post Rehab Potential-Barriers: compliance PT Short Term Goals Short Term Goals Time Frame: Apr 25, 2020 Roll Left & Right: 3 Sit to lyin Lying to sitting on side of be: 3 Sit to stand: 3 Chair/sss-xs-ictfc transfer: 3 PT Long-Term Goals Lining Folder Goals PT Lining Folder Goals Time Frame: May 02, 2020 Roll Left & Right (QC): 5 Sit to Lying (QC): 5 Lying-Sitting on Side/Bed(QC): 5 Sit to Stand (QC): 5 Chair/Hbt-ro-Phrle Xfer(QC): 5 Does the Patient Walk: No and Walking Goal NOT indicated PT Plan Problem List Problem List: Activity Tolerance, Functional Strength, Transfer, Bed Mobility Treatment/Plan Treatment Plan: Continue Plan of Care Treatment Plan: Bed Mobility, Education, Functional Activity Margot, Functional Strength, Safety, Therapeutic Exercise, Transfers Treatment Duration: May 02, 2020 Frequency: 6 times per week Estimated Hrs Per Day: .5 hour per day Patient and/or Family Agrees t: Yes Time/GCodes Time In: 805 Time Out: 834 Total Billed Treatment Time: 29 Total Billed Treatment 1 visit EVModC 15 min FA 14 min TYRONE GARCIA PT Apr 20, 2020 09:43
--- NOTE | 2020-04-20 10:18 | Progress Note - Hospitalist ---
Subjective HPI/CC On Admission Date Seen by Provider: Apr 20, 2020 Time Seen by Provider: 10:00 CC: Hypoxia following fall out of wheelchair HPI: This is a 74yoWM clinic patient of [facility] who has a h/o CRI, PVD, CAD and COPD who is known to me from prior clinic establishment years ago who presents to the [facility] ER with left sided chest pain and rib pain following a fall out of wheelchair at home. He refused to go to ER originally but then could not stand the pain so he came in and then he refused admit but he could not move and function at home so he reluctantly allowed admit and PNA was dx with hypoxia and Pulmonology has provided expertise. Currently the patient is tolerable but refuses to get OOB due to pain increases. Subjective/Events-last exam Social work will look at custodial but will do PT and OT and maybe a rehab candidate Starting on Oxycodone 10mg twice daily Pt having difficulty even rolling because of the pain Nothing fractured so soft tissue injury will take a long time to recover from Will restart home meds when available Review of Systems General: Fatigue Musculoskeletal: back pain Focused Exam Lactate Level 04/18/20 19:29: Lactic Acid Level 1.41 04/19/20 06:56: Lactic Acid Level 1.95 Objective Exam Vital Signs Vital Signs Date Time Temp Pulse Resp B/P (MAP) Pulse Ox O2 Delivery O2 Flow Rate FiO2 04/21/20 04:45 37.2 76 21 157/72 (100) 92 Nasal Cannula 2.00 04/19/20 09:00 92 Capillary Refill : Less Than 3 SecondsLess Than 3 Seconds General Appearance: No Apparent Distress, WD/WN, Chronically ill Respiratory: Chest Non Tender, Lungs Clear, Normal Breath Sounds, No Accessory Muscle Use, No Respiratory Distress Cardiovascular: Regular Rate, Rhythm, No Edema, No Gallop, No JVD, No Murmur, Normal Peripheral Pulses Back: Decreased Range of Motion Neurologic/Psychiatric: Alert, Oriented x3, No Motor/Sensory Deficits, Normal Mood/Affect Results/Procedures Lab Laboratory Tests 04/21/20 05:00 Patient resulted labs reviewed. Assessment/Plan Assessment and Plan Assess & Plan/Chief Complaint Assessment: Pneumonia with hypoxia Zosyn maintained COVID-19 swab negative Metabolic acidosis likely due to CRI Hyperkalemia due to CRI and acute illness CHFAE EF 30-35% Anemia of kidney disease DM PVD Left AKA remote hx COPD Defibrillator in place CAD Plan: Abx COVID-19 swab Home meds O2 Pain control Pulmo Cards Trauma Admission Status: Inpatient Order (span 2 midnights) Reason for Inpatient Admission: PNA with hypoxia Diagnosis/Problems Diagnosis/Problems (1) Hypoxia Status: Acute (2) Contusion of back Status: Acute (3) Fall from wheelchair Status: Acute Diagnosis/Problems Diagnosis/Problems (1) Hypoxia Status: Acute (2) Contusion of back Status: Acute (3) Fall from wheelchair Status: Acute Clinical Quality Measures DVT/VTE Risk/Contraindication: Risk Factor Score Per Nursin RFS Level Per Nursing on Admit: 4+=Very High BILL SANTIAGO DO Apr 20, 2020 10:18
[2020-04-20] MEDS ORDERED: oxyCODONE ER 10 MG (OxyCONTIN CR) TAB PO NR (10:30)
[2020-04-20 11:25] VITALS: BP 157/75
[2020-04-20 13:10] VITALS: BP 146/76
--- NOTE | 2020-04-20 13:10 | NUR ---
Report received from CAROLINE Espinoza. I agree with previous RN's assessment. Patient lying in bed with no complaints at this time, at bedside, and call light within reach.
--- NOTE | 2020-04-20 13:15 | NUR ---
PT TRANSFERRED TO ROOM 410 VIA BED ACCOMPANIED BY THIS RN. PT ALSO WITH PT. PT PERSONAL BELONGINGS SENT TO ROM 410 WITH PT. REPORT GIVEN TO HERMES VELAZQUEZ FOR CONTINUING CARE.
--- NOTE | 2020-04-20 13:59 | Progress Note - Surgery ---
Subjective Time Seen by a Provider: 10:58 Subjective/Events-last exam Pt seen and examined, states he still has moderate back pain. Tolerating diet. Review of Systems General: No Chills, No Night Sweats Cardiovascular: No: Palpitations Gastrointestinal: No: Nausea, Vomiting, Abdominal Pain Musculoskeletal: back pain (from fall) Focused Exam Lactate Level 04/18/20 19:29: Lactic Acid Level 1.41 04/19/20 06:56: Lactic Acid Level 1.95 Objective Exam Vital Signs Date Time Temp Pulse Resp B/P (MAP) Pulse Ox O2 Delivery O2 Flow Rate FiO2 04/20/20 12:48 68 04/20/20 12:00 Nasal Cannula 1.00 04/20/20 11:25 37.0 69 16 157/75 (102) 95 Nasal Cannula 1.00 04/20/20 08:00 Nasal Cannula 1.00 04/20/20 08:00 Nasal Cannula 1.00 04/20/20 07:56 36.6 70 16 147/70 (95) 96 Nasal Cannula 1.00 04/20/20 07:00 71 04/20/20 04:00 36.5 96 04/20/20 04:00 Nasal Cannula 1.00 04/20/20 01:00 80 04/20/20 00:00 Nasal Cannula 1.00 04/19/20 23:35 36.5 68 16 135/69 (91) 94 Nasal Cannula 1.00 04/19/20 21:00 Nasal Cannula 1.00 04/19/20 21:00 Nasal Cannula 1.00 04/19/20 20:30 Nasal Cannula 1.00 04/19/20 20:06 36.7 77 16 152/61 (91) 93 Nasal Cannula 1.00 04/19/20 20:00 Nasal Cannula 1.00 04/19/20 19:00 85 04/19/20 15:54 Nasal Cannula 1.00 04/19/20 15:41 36.4 83 18 132/66 (88) 94 Nasal Cannula 1.00 I & O 04/20/20 07:00 Intake Total 4950 ml Output Total 800 ml Balance 4150 ml Capillary Refill : Less Than 3 SecondsLess Than 3 Seconds General Appearance: No Apparent Distress, Obese HEENT: PERRL/EOMI, Moist Mucous Membranes Respiratory: Chest Non Tender, No Accessory Muscle Use, No Respiratory Distress, Decreased Breath Sounds Cardiovascular: Regular Rate, Rhythm, No Murmur Gastrointestinal: normal bowel sounds, soft, no organomegaly, no pulsatile mass Extremity: Other (left AKA) Results Lab Laboratory Tests 04/19/20 15:38: Glucometer 326H 04/19/20 15:55: Sodium Level 136, Potassium Level 5.1H, Chloride Level 102, Carbon Dioxide Level 20L, Anion Gap 14, Blood Urea Nitrogen 49H, Creatinine 2.72H, Estimat Glomerular Filtration Rate 23, BUN/Creatinine Ratio 18, Glucose Level 318H, Calcium Level 9.0 04/19/20 20:01: Glucometer 236H 04/20/20 06:18: Glucometer 154H 04/20/20 06:30: Troponin I 0.057H 04/20/20 06:50: White Blood Count 10.6, Red Blood Count 4.02L, Hemoglobin 12.5L, Hematocrit 37L, Mean Corpuscular Volume 93, Mean Corpuscular Hemoglobin 31, Mean Corpuscular Hemoglobin Concent 34, Red Cell Distribution Width 14.2, Platelet Count 158, Mean Platelet Volume 11.0H, Neutrophils (%) (Auto) 68, Lymphocytes (%) (Auto) 22, Monocytes (%) (Auto) 9, Eosinophils (%) (Auto) 1, Basophils (%) (Auto) 0, Neutrophils # (Auto) 7.2, Lymphocytes # (Auto) 2.3, Monocytes # (Auto) 0.9, Eosinophils # (Auto) 0.1, Basophils # (Auto) 0.0, Sodium Level 140, Potassium Level 4.6, Chloride Level 108H, Carbon Dioxide Level 18L, Anion Gap 14, Blood Urea Nitrogen 50H, Creatinine 2.46H, Estimat Glomerular Filtration Rate 26, BUN/Creatinine Ratio 20, Glucose Level 155H, Calcium Level 8.4L, Corrected Calcium 8.8, Total Bilirubin 0.4, Aspartate Amino Transf (AST/SGOT) 19, Alanine Aminotransferase (ALT/SGPT) 22, Alkaline Phosphatase 45, Total Protein 6.4, Albumin 3.5 04/20/20 11:23: Glucometer 221H Microbiology 04/18/20 Blood Culture - Preliminary, Resulted No growth Assessment/Plan Assessment/Plan Assessment/Plan Trauma - fall w/o LOC Chest wall contusion - no rib fx or pulmonary contusion seen Pt still has pain, but nothing surgical. Recommend NSAIDS, PT/OT, and IS use; will be very important to take deep breaths. I will sign off. Clinical Quality Measures DVT/VTE Risk/Contraindication: Risk Factor Score Per Nursin RFS Level Per Nursing on Admit: 4+=Very High WES PETERS DO Apr 20, 2020 13:59
--- NOTE | 2020-04-20 14:25 | Occupational Therapy Eval ---
OT Evaluation-General/PLF Medical Diagnosis Admission Date Apr 18, 2020 at 19:00 Medical Diagnosis: left chest wall pain/hypoxia Onset Date: Apr 18, 2020 Therapy Diagnosis Therapy Diagnosis: Weakness Height/Weight Height (Feet): 5 Height (Inches): 9.00 Weight (Pounds): 220 Weight (Ounces): 0.0 Precautions Precautions/Isolations: Fall Prevention Weight Bear Status Weight Bearing Restriction: Weight Bearing/Tolerated Referral Physician: Gregg Referral Reason: Activity Tolerance, Self Care, Evaluation/Treatment, Strengthening/ROM Medical History Pertinent Medical History: CAD, COPD, DM, HTN, DC, PVD Additional Medical History Right BKA Current History Pt. states that he does not wear his prosthetic LE. Uses wheelchair for mobility but can stand out of wheelchair. Pt. reports that he fell onto pitchfork after he had stood from chair. Pt. reports that he is having back pain due to this fall. Reviewed History: Yes Social History Home: Single Level Current Living Status: Spouse Entry Into Home: Ramp ADL-Prior Level of Function SCALE: Activities may be completed with or without assistive devices. 4-Painxomrqh-sjpgnml completes the activity by him/herself with no assistance from a helper. 5-Set-up or Clean-up Assistance-helper sets up or cleans up; patient completes activity. [place] assists only prior to or following the activity. 4-Supervision or Touching Assistance-helper provides verbal cues and/or touching/steadying and/or contact guard assistance as patient completes activity. Assistance may be provided throughout the activity or intermittently. 3-Partial/Moderate Assistance-helper does LESS THAN HALF the effort. [place] lifts, holds or supports trunk or limbs, but provides less than half the effort. 2-Substantial/Maximal Assistance-helper does MORE THAN HALF the effort. [place] lifts or holds trunk or limbs and provides more than half the effort. 7-Pnfcomnif-niobkt does ALL the effort. Patient does none of the effort to complete the activity. Or, the assistance of 2 or more helpers is required for the patient to complete the activity. If activity was not attempted, code reason: 7-Patient Refused. 9-Not Applicable-not attempted and the patient did not perform the activity before the current illness, exacerbation or injury. 10-Not Attempted due to Environmental Limitations-(lack of equipment, weather restraints, etc.). 88-Not Attempted due to Medical Conditions or Safety Concerns. ADL PLOF Comments Pt. states that he is able to bathe/dress himself at home. Reports that he still drives. Self Care: Independent Functional Cognition: Independent DME/Equipment: Bath Chair, Shower DME/Equipment Comments Pt. has wheelchair and walker. Drive Self: Yes OT Current Status Subjective Pt. reports 10/10 pain in back with movement. Pt. has asked for pain pill. Appearance Pt. in bed on bedpan when OT entered room. Mental Status/Objective Patient Orientation: Person, Place Current Upper Extremity ROM WFL ADL-Treatment Eating (QC): 5 (per pt.) Toileting Hygiene (QC): 1 Pt. on bedpan. Reports that he attempted to get to BS, but is unable to move in bed. Pt. allows OT to get him off bedpan, but does not assist. Max assist to roll pt. in bed and assess bottom. Pt. grimaces and reports pain in back. Pt. declines OOB activity with OT, and declines attempting to cleanse self. Pt. is encouraged that movement will assist him to feel better. Pt. states that he might try tomorrow. All needs are met. Education OT Patient Education: Correct positioning, Modified ADL techniques, Reviewed precautions, Rehab process Teaching Recipient: Patient Teaching Methods: Demonstration, Discussion Response to Teaching: Verbalize Understanding, Unable to Return Demonstration, Reinforcement Needed OT Short Term Goals Short Term Goals Time Frame: Apr 27, 2020 Eatin Oral hygiene: 6 Toileting hygiene: 3 Upper body dressin OT Buckler And Lacer Goals Fdc Goals Time Frame: May 04, 2020 Eating (QC): 6 Oral Hygiene (QC): 6 Toileting Hygiene (QC): 4 Shower/Bathe Self (QC): 4 Upper Body Dressing (QC): 5 Lower Body Dressing (QC): 4 On/Off Footwear (QC): 4 Additional Goals: 1-Demonstrate ADL Tasks, 2-Verbalize Understanding, 3-Imp roveStrength/Margot 1=Demonstrate adherence to instructed precautions during ADL tasks. 2=Patient will verbalize/demonstrate understanding of assistive devices/modifications for ADL. 3=Patient will improve strength/tolerance for activity to enable patient to perform ADL's. OT Education/Plan Problem List/Assessment Assessment: Decreased Activ Tolerance, Dependent Transfers, Impaired Bed Mobility, Impaired I ADL's, Impaired Self-Care Skills Discharge Recommendations Plan/Recommendations: Continue POC Therapy Discharge Recommendati: Post Acute OT Treatment Plan/Plan of Care Treatment,Training & Education: Yes Patient would benefit from OT for education, treatment and training to promote independence in ADL's, mobility, safety and/or upper extremity function for ADL's. Plan of Care: ADL Retraining, Functional Mobility, UE Funct Exercise/Act Treatment Duration: May 04, 2020 Frequency: 5 times per week Estimated Hrs Per Day: .25 hour per day Agreement: Yes Rehab Potential: Fair Time/GCodes Start Time: 09:25 Stop Time: 09:40 Total Time Billed (hr/min): 15 Billed Treatment Time 1, BRITNEY BARCENAS OT Apr 20, 2020 14:25
[2020-04-20] MEDS ORDERED: REGADENOSON 0.4 MG/5 ML SYR (LEXISCAN) IV ONE (14:30)
--- NOTE | 2020-04-20 15:52 | Consultation-Cardiology ---
HPI-Cardiology Cardiology Consultation: Date of Consultation 04/20/20 Date of Admission Attending Physician Caroline Escobedo DO Admitting Physician Harris Barba MD Consulting Physician Tee GANDHI MD HPI: Time Seen by a Provider: 11:00 Chief Complaint: Chest wall pain This is a 74-year-old gentleman who has history of chronic kidney disease, peripheral vascular disease, status post left leg amputation, CAD and COPD. He presented due to a fall and has pain in his back and left-sided chest. In the ER he was found to be hypoxic and 88 percent on room air. Therefore he was admitted for COVID-19 testing and pain control. The patient has seen Dr. Perez before. Review of Systems-Cardiology Review of Systems Constitutional: As described under HPI; No As described under HPI, No no symptoms reported, No chills, No fever, No lightheadedness Eyes: No As described under HPI, No no symptoms reported, No blindness, No blurred vision, No contact lenses, No drainage, No decreased acuity, No foreign body sensation, No pain, No vision change Ears/Nose/Throat: No As described under HPI, No no symptoms reported, No chronic hearing loss, No ear discharge, No ear pain, No nasal drainage, No ulcerations Respiratory: No no symptoms reported; As described under HPI; No As described under HPI, No cough, No orthopnea, No shortness of breath, No SOB with excertion Cardiovascular: No no symptoms reported; As described under HPI; No As described under HPI; chest pain; No edema, No irregular heart rate, No lightheadedness, No palpitations Gastrointestinal: No no symptoms reported, No As described under HPI, No abdomen distended, No abdominal pain, No blood streaked bowels, No constipation, No diarrhea, No nausea, No vomiting, No stool coloration changes Genitourinary: No As described under HPI, No burning, No dysuria, No discharge, No frequency, No flank pain, No hematuria, No urgency Skin: No rash, No skin related problems, No ulcerations Psychiatric/Neurological: No anxiety, No depression, No seizure, No focal weakness, No syncope Hematologic: No bleeding abnormalities SJT-Jztuuv-Igpwvs Hx Patient Social History Marrital Status: Employed/Student: retired Alcohol Use: Denies Use Recreational Drug Use: No (SMOKES 2-3 CIGS PER DAY) Smoking Status: Former Smoker Former smoker/When Quit: May 30, 2013 2nd Hand Smoke Exposure: No Recent Foreign Travel: No Recent Infectious Disease Expo: No Hospitalization with Isolation: Denies Immunizations Up To Date Tetanus Booster (TDap): Unknown Date of Pneumonia Vaccine: Aug 21, 2019 Date of Influenza Vaccine: Aug 07, 2019 Past Medical History PMH As described under Assessment. Family Medical History Family Medical History: He has a documented history of CAD in a father and brother. There is no documented h/o CAD before age 50. Family History: Cardiovascular disease 19 FATHER, Onset:60 years & older FH: breast cancer 19 MOTHER, Onset:Unknown G8 SISTER, Onset:Unknown FHx: mental retardation G8 SISTER, Onset:Pre- Myocardial infarction G8 BROTHER, Onset:Unknown G8 BROTHER, Onset:Unknown G8 BROTHER, Onset:Unknown G8 BROTHER, Onset:Unknown G8 BROTHER, Onset:Unknown G8 SISTER, Onset:40's - 50 Allergies and Home Medications Allergies Coded Allergies: NKANo Known Allergies (Unverified Allergy, Mild, 07/25/07) Home Medications Amoxicillin/Potassium Clav 1 Each Tablet, 1 EACH PO BID Prescribed by: MARY STREETER on 04/18/201800 Aspirin 81 Mg Tablet.dr, 81 MG PO HS, (Reported) Carvedilol 12.5 Mg Tablet, 12.5 MG PO BID, (Reported) Clopidogrel Bisulfate 75 Mg Tablet, 75 MG PO DAILY, (Reported) Furosemide 40 Mg Tablet, 40 MG PO DAILY, (Reported) Insulin Aspart 300 Units/3 Ml Solution, 40 UNITS SC AC, (Reported) Insulin Detemir 100 Unit/1 Ml Insuln.pen, 65 UNITS SC HS, (Reported) Nortriptyline HCl 50 Mg Capsule, 50 MG PO HS, (Reported) [place]-3 Fatty Acids/Fish Oil 1 Each Capsule, 1,200 MG PO BID, (Reported) Pantoprazole Sodium 40 Mg Tablet.dr, 40 MG PO DAILY, (Reported) Prednisone 20 Mg Tab, 40 MG PO DAILY Prescribed by: MARY STREETER on 04/18/201800 Ramipril 5 Mg Capsule, 5 MG PO DAILY, (Reported) Simvastatin 40 Mg Tablet, 40 MG PO HS, (Reported) Patient Home Medication List Home Medication List Reviewed: Yes Physical Exam-Cardiology Physical Exam Vital Signs/I&O 04/20/20 04/20/20 04/20/20 04/20/20 04:00 04:00 07:00 07:56 Temp 36.5 36.6 Pulse 71 70 Resp 16 B/P (MAP) 147/70 (95) Pulse Ox 96 96 O2 Delivery Nasal Cannula Nasal Cannula O2 Flow Rate 1.00 1.00 04/20/20 04/20/20 04/20/20 04/20/20 08:00 08:00 11:25 12:00 Temp 37.0 Pulse 69 Resp 16 B/P (MAP) 157/75 (102) Pulse Ox 95 O2 Delivery Nasal Cannula Nasal Cannula Nasal Cannula Nasal Cannula O2 Flow Rate 1.00 1.00 1.00 1.00 04/20/20 04/20/20 12:48 13:10 Temp 36.9 Pulse 68 61 Resp 18 B/P (MAP) 146/76 (99) Pulse Ox 98 O2 Delivery Nasal Cannula O2 Flow Rate 1.00 04/20/20 00:00 Intake Total 1830 ml Output Total 550 ml Balance 1280 ml Capillary Refill : Less Than 3 SecondsLess Than 3 Seconds Constitutional: appears stated age, AAO x 3; No apparent distress; well- developed, well-nourished HEENT: PERRL; No discharge; hearing is well preserved, oral hygience is good; No ulceration, No xanthelasmas are seen Neck: No carotid bruit; carotid pulses are 2 + bilaterally Respiratory: chest is bilaterally symmetric, lungs clear to auscultation Cardiovascular: regular rate-rhythm, S1 and S2; No diastolic murmur, No systolic murmur Gastrointestinal: soft, audible bowel sounds; No spleenomegaly Rectal: deferred Extremities: normal range of motion, non-tender, normal inspection; No clubbing, No cyanosis; no lower extremity edema bilateral; No significant edema Neurologic/Psychiatric: no motor/sensory deficits, alert, normal mood/affect, oriented x 3, power is 5/5 both on sides Skin: normal color, warm/dry; No rash, No ulcerations Lymphatic: no adenopathy (neck axilla or groin) Data Review Labs Laboratory Tests 04/19/20 20:01: Glucometer 236H 04/20/20 06:18: Glucometer 154H 04/20/20 06:30: Troponin I 0.057H 04/20/20 06:50: White Blood Count 10.6, Red Blood Count 4.02L, Hemoglobin 12.5L, Hematocrit 37L, Mean Corpuscular Volume 93, Mean Corpuscular Hemoglobin 31, Mean Corpuscular Hemoglobin Concent 34, Red Cell Distribution Width 14.2, Platelet Count 158, Mean Platelet Volume 11.0H, Neutrophils (%) (Auto) 68, Lymphocytes (%) (Auto) 22, Monocytes (%) (Auto) 9, Eosinophils (%) (Auto) 1, Basophils (%) (Auto) 0, Neutrophils # (Auto) 7.2, Lymphocytes # (Auto) 2.3, Monocytes # (Auto) 0.9, Eosinophils # (Auto) 0.1, Basophils # (Auto) 0.0, Sodium Level 140, Potassium Level 4.6, Chloride Level 108H, Carbon Dioxide Level 18L, Anion Gap 14, Blood Urea Nitrogen 50H, Creatinine 2.46H, Estimat Glomerular Filtration Rate 26, BUN/Creatinine Ratio 20, Glucose Level 155H, Calcium Level 8.4L, Corrected Calcium 8.8, Total Bilirubin 0.4, Aspartate Amino Transf (AST/SGOT) 19, Alanine Aminotransferase (ALT/SGPT) 22, Alkaline Phosphatase 45, Total Protein 6.4, Albumin 3.5 04/20/20 11:23: Glucometer 221H Microbiology 04/18/20 Blood Culture - Preliminary, Resulted No growth ECG Impression ECG Initial ECG Rhythm: Normal Sinus A/P-Cardiology Assessment/Admission Diagnosis Recent fall, chest trauma, back trauma, Acute respiratory failure, pneumonia, History of nonischemic cardiomyopathy, No evidence of acute congestive heart failure, PVD, ICD in place, Anemia, Chronic kidney disease stage IV, History of TIA, Left lower extremity amputation. Plan Recent fall, chest trauma, back trauma, defer to the primary team and trauma service. Acute respiratory failure, pneumonia, on broad-spectrum antibiotics. History of nonischemic cardiomyopathy, request echocardiogram. Echocardiogram done 04/20/2020 shows an EF of 30-35 percent with global hypokinesis. No evidence of acute congestive heart failure, no significant evidence of congestive heart failure. BNP is normal. Peripheral arterial disease for which he has undergone multiple percutaneous interventions in [place], [place]. Following failed revascularization of the left lower extremity in early 1999s, he underwent left above-knee amputation with Dr. Rhodes. ICD in place, Status post single-chamber pacemaker defibrillator implantation, device has reached SHAW per interrogation carried out on 02-11-2015 and he underwent generator change out 02-17-2015. Device is functioning normally per interrogation on September 2015 Anemia, likely due to severe chronic kidney disease. Chronic kidney disease stage IV, likely due to diabetes. History of TIA, Left lower extremity amputation. Maturity onset diabetes mellitus Hyperlipidemia. History of Tobaccoism. Elevated body mass index of 32. Mild carotid arterial disease on carotid ultrasonography of November 2015 Complicated patient as above. Dr. Perez to take over cardiology care from tomorrow. Thank you for your consultation. Please call me if you have any questions. Marylin Gandhi MD, FACP, FACC, FSCAI, FHRS, CCDS Interventional Cardiology Cardiac Electrophysiology Vascular Medicine and Endovascular Interventions Clinical Quality Measures DVT/VTE Risk/Contraindication: Risk Factor Score Per Nursin RFS Level Per Nursing on Admit: 4+=Very High Tee GANDHI MD Apr 20, 2020 15:52
[2020-04-20 16:00] VITALS: BP 142/67
--- NOTE | 2020-04-20 16:16 | NUR ---
SPOKE WITH THE PT- HE DOES NOT KNOW THE NAMES OF HIS MEDICATIONS OR EVEN RECOGNIZE WHEN I LIST MEDS FROM THE EXT MED HISTORY. HE SUGGESTED I CALL HIS GIRLFRIEND NALINI SINCE SHE TAKES CARE OF HIS MEDS. I CALLED NALINI 3X AND NEVER GOT AN ANSWER AND THERE WAS NO VOICE MAIL TO LEAVE A MESSAGE [facility] AND HAD A MED LIST FAXED OVER. I LEFT A MESSAGE FOR [facility] TO FAX OVER A CURRENT MED LIST BUT I HAVE NOT RECEIVED IT YET. Addendum: 04/21/20 at 1044 by GISELLE MOYA [facility] PATIENT NALINI WAS HERE AND I WAS ABLE TO SPEAK WITH HER, UNFORTUNATELY SHE DID NOT KNOW THE PATIENTS PRESCRIPTIONS EITHER. SHE HAD A LIST BUT DID MAKE THE COMMENT THAT IT WAS "PRETTY OLD". DUE TO THE ABOVE REASONS I HAVE ENTERED THE MED REC USING PROVIDER INFORMATION ( MED LIST FROM [facility], [facility] AND THE EXT MED HISTORY) TO THE BEST OF MY ABILITY. NALINI DID INDICATE THAT SHE USED TO TAKE CARE OF DEAN'S MEDS BUT DUE TO AN ILLNESS SHE COULDNT FOR 18 MONTHS AND HE WAS STILL TAKING MEDS ON HIS OWN. I LET HER KNOW HE MAY BE BEHIND ON REFILLS AND SHE AGREED THAT SHE MAY NEED TO TAKE THEM BACK OVER. FUROSEMIDE 80MG LAST FILLED 01-20-2020 #60 WITH DIRECTIONS OF 1 TAB BID HOWEVER NALINI WAS ABLE TO TELL ME HE ONLY TAKE EVERY OTHER DAY DUE TO FREQUENT URINATION. THIS IS STILL PAST DUE AND I DID DOCUMENT THIS ON THE MED REC COREG 25MG: LAST FILLED 12-30-2019 #90 W/ DIRECTIONS OF 1 TAB DAILY- I DID DOCUMENT THE PAST DUE REFILL ON THE MED REC ZOLOFT 50MG LAST FILLED 01-29-2020 #30- I DID DOCUMENT THE PAST DUE FILL ON THE MED REC 03-16-2020 NOVOLOG FLEXPEN #25 PENS/62DS (THIS DOES NOT SHOW ON THE EXT MED HISTORY) 12-10-2019 LEVEMIR #15 PENS/62 DS (THIS DOES NOT SHOW ON THE EXT MED HISTORY AND I DID DOCUMENT THE PAST DUE FILL ON THE MED REC) PT HAD NORTRIPTYLINE 50MG ON HIS MED LIST AND [facility] HAD IT LISTED HOWEVER PT HAS NOT FILLED THIS SINCE 2018- FOR THIS REASON I DID NOT INCLUDE THIS ON THE MED REC OTC MED: FISH OIL ASPIRIN
[2020-04-20 20:45] VITALS: BP 156/69
--- NOTE | 2020-04-20 21:15 | NUR ---
pt blood sugar 89, dr kim contacted regarding pt's scheduled 65 units of levemir. ordered to give 10 units of levemir tonight with a snack.
[2020-04-20] MEDS: oxyCODONE ER 10 MG (OxyCONTIN CR) TAB PO SCH (21:36)
[2020-04-21] VITALS: BP 149/64
[2020-04-21] MEDS: NS IV 1000 ML 1,000 ML IV SCH ×2 (02:46→21:26)
[2020-04-21] MEDS: PIPERACILLIN/TAZOBACTAM (BULK) 4.5 GM in NS (IVPB) 100 ML IV SCH (04:04)
[2020-04-21 04:45] VITALS: BP 157/72
[2020-04-21 05:24] LABS: BASOPHILS % (AUTO) 0 % (0-10); EOSINOPHILS # (AUTO) 0.3 10^3/uL (0.0-0.3); EOSINOPHILS % (AUTO) 3 % (0-10); HEMATOCRIT 38 % (40-54); HEMOGLOBIN 12.4 G/DL (13.3-17.7); LYMPHOCYTES # (AUTO) 2.1 X 10^3 (1.0-4.0); LYMPHOCYTES % (AUTO) 21 % (12-44); MEAN CORPUSCULAR HEMOGLOBIN 30 PG (25-34); MEAN CORPUSCULAR HGB CONC 32 G/DL (32-36); MEAN CORPUSCULAR VOLUME 93 FL (80-99); MEAN PLATELET VOLUME 10.9 FL (7.4-10.4); MONOCYTES % (AUTO) 10 % (0-12); NEUTROPHILS # (AUTO) 6.6 X 10^3 (1.8-7.8); NEUTROPHILS % (AUTO) 66 % (42-75); PLATELET COUNT 168 10^3/uL (130-400); RED CELL DISTRIBUTION WIDTH 14.4 % (10.0-14.5); WHITE BLOOD COUNT 10.1 10^3/uL (4.3-11.0)
[2020-04-21 05:42] LABS: CALCIUM 8.6 MG/DL (8.5-10.1); CREATININE SERUM 2.22 MG/DL (0.60-1.30); POTASSIUM 4.4 MMOL/L (3.6-5.0)
[2020-04-21] MEDS: inSUlin ASPART (NovoLOG) 1 UNIT/0.01 ML (CHARGE PER UNIT) SC SCH ×4 (06:16→17:50)
--- NOTE | 2020-04-21 07:05 | Pulmonary Progress Note ---
Subjective Time Seen by a Provider: 06:59 Subjective/Events-last exam PT appears to be doing much better. Sepsis Event Evaluation Height, Weight, BMI Height: 5'9.00" Weight: 220lbs. 0.0oz. 99.714427sq; 32.64 BMI Method:Stated Focused Exam Lactate Level 04/18/20 19:29: Lactic Acid Level 1.41 04/19/20 06:56: Lactic Acid Level 1.95 Exam Exam Vital Signs Date Time Temp Pulse Resp B/P (MAP) Pulse Ox O2 Delivery O2 Flow Rate FiO2 04/21/20 04:45 37.2 76 21 157/72 (100) 92 Nasal Cannula 2.00 04/21/20 00:00 37.1 72 20 149/64 (92) 94 Nasal Cannula 2.00 04/20/20 21:30 95 Nasal Cannula 1.00 04/20/20 20:45 37.0 76 16 156/69 (98) 95 Nasal Cannula 2.00 04/20/20 18:27 89 Nasal Cannula 1.00 04/20/20 16:00 36.7 66 16 142/67 (92) 93 Nasal Cannula 1.00 04/20/20 13:10 36.9 61 18 146/76 (99) 98 Nasal Cannula 1.00 04/20/20 12:48 68 04/20/20 12:00 Nasal Cannula 1.00 04/20/20 11:25 37.0 69 16 157/75 (102) 95 Nasal Cannula 1.00 04/20/20 08:00 Nasal Cannula 1.00 04/20/20 08:00 Nasal Cannula 1.00 04/20/20 07:56 36.6 70 16 147/70 (95) 96 Nasal Cannula 1.00 04/20/20 07:00 71 I & O 04/21/20 07:00 Intake Total 2880 ml Output Total 1500 ml Balance 1380 ml Height & Weight Height: 5'9.00" Weight: 220lbs. 0.0oz. 99.273880fa; 32.64 BMI Method:Stated General Appearance: No Apparent Distress, WD/WN, Chronically ill HEENT: PERRL/EOMI, Moist Mucous Membranes Respiratory: Chest Non Tender, Lungs Clear, Normal Breath Sounds, No Accessory Muscle Use, No Respiratory Distress Cardiovascular: Regular Rate, Rhythm, No Edema, No Gallop, No JVD, No Murmur, Normal Peripheral Pulses Capillary Refill: Less Than 3 Seconds Gastrointestinal: normal bowel sounds, soft, no organomegaly, no pulsatile mass Extremity: Other (left AKA) Neurologic/Psychiatric: Alert, Oriented x3, No Motor/Sensory Deficits, Normal Mood/Affect Results Lab Laboratory Tests 04/19/20 15:55 04/20/20 06:50 04/21/20 05:00 Assessment/Plan Assessment/Plan Pneumonia with hypoxia -Change Zosyn to Augmentin for total Abx of 5-7days -oxygen -Amaya cultures negative Metabolic acidosis- improving -decrease IVF to 50cc/hr [facility] EF 30-35% Acute renal failure vs chronic -monitor anemia- monitor DM PVLAUREN SAINZ DO Apr 21, 2020 07:05
[2020-04-21 08:00] VITALS: BP 169/82
[2020-04-21] MEDS: AUGMENTIN 875 MG TAB (AMOXICILLIN/CLAVULANATE) PO SCH ×2 (08:00→17:50)
--- NOTE | 2020-04-21 08:38 | Physical Therapy Daily Note ---
PT Daily Note-Current Subjective Patient in bed pre tx, agrees to PT, has 10/10 back pain. Nuclear medicine comes in not long after PT starts and states patient is going down for a stress test. PT can assist getting patient into WC. Appearance Patient in WC post tx with nuclear addiction medicine physician. Mental Status Patient Orientation: Person, Place, Situation Attachments: Oxygen, IV Transfers SCALE: Activities may be completed with or without assistive devices. 7-Cnsrapkxun-somadqe completes the activity by him/herself with no assistance from a helper. 5-Set-up or Clean-up Assistance-helper sets up or cleans up; patient completes activity. [place] assists only prior to or following the activity. 4-Supervision or Touching Assistance-helper provides verbal cues and/or touching/steadying and/or contact guard assistance as patient completes activity. Assistance may be provided throughout the activity or intermittently. 3-Partial/Moderate Assistance-helper does LESS THAN HALF the effort. [place] lifts, holds or supports trunk or limbs, but provides less than half the effort. 2-Substantial/Maximal Assistance-helper does MORE THAN HALF the effort. [place] lifts or holds trunk or limbs and provides more than half the effort. 0-Jsvmgipuc-wxmwcf does ALL the effort. Patient does none of the effort to complete the activity. Or, the assistance of 2 or more helpers is required for the patient to complete the activity. If activity was not attempted, code reason: 7-Patient Refused. 9-Not Applicable-not attempted and the patient did not perform the activity before the current illness, exacerbation or injury. 10-Not Attempted due to Environmental Limitations-(lack of equipment, weather restraints, etc.). 88-Not Attempted due to Medical Conditions or Safety Concerns. Roll Left & Right (QC): 1 Lying to Sitting/Side of Bed(Q: 1 Sit to Stand (QC): 3 Chair/Jkn-kv-Ivdzo Xfer(QC): 3 Nuclear addiction medicine physician assists with transfers. Patient is dependent for supine to sit and to scoot to the edge of the bed. He is able to perform a stand pivot transfer with min assist over to the WC. Treatments bed mobility and transfers Assessment Current Status: Poor Progress Patient states he is able to get out of bed and perform his own transfers but he was totally dependent to just sit at the side of the bed from laying down. PT Short Term Goals Short Term Goals Time Frame: Apr 25, 2020 Roll Left & Right: 3 Sit to lyin Lying to sitting on side of be: 3 Sit to stand: 3 Chair/stm-ul-ndgdp transfer: 3 PT Mcc Goals Mcc Goals PT Union Representative Goals Time Frame: May 02, 2020 Roll Left & Right (QC): 5 Sit to Lying (QC): 5 Lying-Sitting on Side/Bed(QC): 5 Sit to Stand (QC): 5 Chair/Hkb-jj-Wkpad Xfer(QC): 5 Does the Patient Walk: No and Walking Goal NOT indicated PT Plan Problem List Problem List: Activity Tolerance, Functional Strength, Safety, Balance, Transfer, Bed Mobility, ROM Treatment/Plan Treatment Plan: Continue Plan of Care Treatment Plan: Bed Mobility, Education, Functional Activity Margot, Functional Strength, Safety, Therapeutic Exercise, Transfers Treatment Duration: May 02, 2020 Frequency: 6 times per week Estimated Hrs Per Day: .5 hour per day Patient and/or Family Agrees t: Yes Safety Risks/Education Patient Education: Transfer Techniques, Correct Positioning, Safety Issues Teaching Recipient: Patient Teaching Methods: Demonstration, Discussion Response to Teaching: Reinforcement Needed Time/GCodes Time In: 08 Time Out: 08 Total Billed Treatment Time: 13 Total Billed Treatment 1 visit FA ARON HDEZ PT Apr 21, 2020 08:38
[2020-04-21] MEDS ORDERED: CATHETER FLUSH 10 ML SYR IV PRN (08:45)
--- NOTE | 2020-04-21 08:49 | Progress Note - Cardiology ---
Cardiology SOAP Progress Note Subjective: Sitting up in w/c this morning. States continues to feel SOB with freq lose cough. C/O localized, left anterior chest wall pain which has been present since admission, but somewhat worse today. Discomfort is constant ache. No radiation. No other assoc symptoms. No relieving factors. Worse with coughin g. Objective: I&O/Vital Signs 04/22/20 04/22/20 04/22/20 04/22/20 00:00 04:00 05:24 07:55 Temp 36.2 36.8 36.8 Pulse 67 69 69 Resp 23 22 22 B/P (MAP) 150/70 (96) 189/76 (113) 189/76 (113) Pulse Ox 95 92 92 90 O2 Delivery Nasal Cannula Nasal Cannula Nasal Cannula Nasal Cannula O2 Flow Rate 2.00 2.00 2.00 2.00 04/22/20 00:00 Intake Total 540 ml Output Total 1100 ml Balance -560 ml Weight (Pounds): 220 Weight (Ounces): 0.0 Weight (Calculated Kilograms): 99.540416 Constitutional: appears stated age, AAO x 3; No apparent distress; well- developed, well-nourished Respiratory: chest is bilaterally symmetric, lungs clear to auscultation, rhonchi (scattered) Cardiovascular: regular rate-rhythm, S1 and S2; No diastolic murmur, No systolic murmur Gastrointestional: soft, audible bowel sounds Extremities: other (L AKA), no lower extremity edema bilateral Neurologic/Psychiatric: grossly intact (moves extremities) Skin: No rash on exposed areas, No ulcerations on exposed areas Results/Procedures: Labs Laboratory Tests 04/21/20 11:23: Glucometer 220H 04/21/20 15:35: Glucometer 139H 04/21/20 20:37: Glucometer 47*L 04/21/20 21:26: Glucometer 72 04/22/20 05:20: White Blood Count 8.8, Red Blood Count 3.98L, Hemoglobin 12.2L, Hematocrit 37L, Mean Corpuscular Volume 93, Mean Corpuscular Hemoglobin 31, Mean Corpuscular Hemoglobin Concent 33, Red Cell Distribution Width 14.0, Platelet Count 152, Mean Platelet Volume 10.9H, Neutrophils (%) (Auto) 62, Lymphocytes (%) (Auto) 24, Monocytes (%) (Auto) 11, Eosinophils (%) (Auto) 4, Basophils (%) (Auto) 0, Neutrophils # (Auto) 5.5, Lymphocytes # (Auto) 2.1, Monocytes # (Auto) 0.9, Eosinophils # (Auto) 0.3, Basophils # (Auto) 0.0, Sodium Level 138, Potassium Level 4.3, Chloride Level 107, Carbon Dioxide Level 22, Anion Gap 9, Blood Urea Nitrogen 31H, Creatinine 1.68H, Estimat Glomerular Filtration Rate 40, BUN/Creatinine Ratio 18, Glucose Level 149H, Calcium Level 8.4L 04/22/20 06:35: Glucometer 148H Microbiology 04/18/20 Blood Culture - Preliminary, Resulted No growth A/P: Assessment: Chest pain of undetermined etiology - no evidence of ACS Recent fall, chest trauma, back trauma, defer to the primary team and trauma service. Acute respiratory failure, pneumonia, on broad-spectrum antibiotics. History of nonischemic cardiomyopathy, request echocardiogram. Echocardiogram done 04/20/2020 shows an EF of 30-35% with global hypokinesis. MPI of Jun 2019 showed mild to mod global hypokinesis with no evidence of ischemia or infarction. LVEF 41% No evidence of acute congestive heart failure, no significant evidence of congestive heart failure. BNP is normal. Peripheral arterial disease for which he has undergone multiple percutaneous interventions in [place], [place]. Following failed revascularization of the left lower extremity in early , he underwent left above-knee amputation with Dr. Rhodes. ICD in place, Status post single-chamber pacemaker defibrillator implantation, device has reached SHAW per interrogation carried out on 02-11-2015 and he underwent generator change out 02-17-2015. Device is functioning normally per interrogation on January 2020 Anemia, likely due to severe chronic kidney disease. Chronic kidney disease stage IV, likely secondary to diabetes - follows with [facility] History of TIA, Left lower extremity amputation. Maturity onset diabetes mellitus Hyperlipidemia. History of Tobaccoism. Elevated body mass index of 32. Mild bilat carotid arterial disease on carotid ultrasonography of March 2020 Plan: Management of pneumonia per medical/pulmonary services Chest pain of undetermined etiology - MPI today to eval perfusion Records per Dr. Gandhi have been reviewed Monitor lab closely - Cr improved CKD stage 4 Replace electrolytes as indicated HTN - BP not well controlled resume Coreg at home dose IRINEO BADILLO Apr 21, 2020 08:49
--- NOTE | 2020-04-21 09:58 | NUR ---
REASSESSING AND FOUND PT OFF FLOOR -- PT NPO FOR [facility]ISCAN --
[2020-04-21] MEDS ORDERED: REGADENOSON 0.4 MG/5 ML SYR (LEXISCAN) IV ONE (10:06)
[2020-04-21] MEDS: RT-ALBUTEROL INHALER HFA (VENTOLIN HFA) 8 GM IH SCH ×2 (10:09→19:01)
[2020-04-21] MEDS ORDERED: FURO80TA3 PO (10:29)
[2020-04-21] MEDS ORDERED: CARV25TA PO (10:29)
[2020-04-21] MEDS ORDERED: SERT50TA9 PO (10:29)
[2020-04-21] MEDS ORDERED: ALLO100T PO (10:29)
[2020-04-21] MEDS ORDERED: ASPI-983 PO (10:29)
[2020-04-21] MEDS ORDERED: LORA-404 PO (10:29)
[2020-04-21] MEDS ORDERED: CALC0.253 PO (10:29)
[2020-04-21] MEDS ORDERED: GABA300C PO (10:31)
--- NOTE | 2020-04-21 10:59 | NUR ---
CM/SS attempted to visit with the patient; however he was getting a scan. CM/SS visited with patients . The patients Jennifer ([phone]) reports that the patient gets around in a wheelchair due to an above the knee amputation. Jennifer states that he is able to complete his daily activities without assistance such as bathing, toileting, dressing, and eating. The patients reports she is in the home with him due to both being retired; therefore, if he would need assistance she would be able to help. Their daughter also works for [employer]. The patient has never been to a residential facility in the past and Jennifer stated "I don't want him to go to one". CM/SS asked Jennifer if patient had DPOA paperwork, she stated no. CM/SS gave education on the importance of this. She verbalized understanding. Per CAROLINE Pugh she visited with patient and who reports they would like to have some home health upon discharge. They would like [facility] care. Will continue to follow. Addendum: 04/21/20 at 1529 by KEVIN DE LA GARZA [facility] CM/SS discussed with the patient different discharge options such as residential facility, IRF, and swing bed in [place]. The patient adamantly denied any of those options and states he will only accept home health with [facility].
--- NOTE | 2020-04-21 11:05 | NUR ---
back to floor
[2020-04-21] MEDS: ENOXAPARIN 30 MG/0.3 ML (LOVENOX) SYR SC SCH (11:27)
[2020-04-21] MEDS: CLOPIDOGREL 75 MG (PLAVIX) TABLET PO SCH (11:27)
[2020-04-21] MEDS: CARVEDILOL 12.5 MG (COREG) TABLET PO SCH ×2 (11:27→20:36)
[2020-04-21] MEDS: oxyCODONE ER 10 MG (OxyCONTIN CR) TAB PO SCH ×2 (11:28→20:36)
[2020-04-21] MEDS: PANTOPRAZOLE 40 MG (PROTONIX) TAB PO SCH (11:28)
[2020-04-21] MEDS: SENNA W/DOCUSATE (SENOKOT S) TABLET PO SCH ×2 (11:36→20:37)
[2020-04-21] MEDS: DOCUSATE SODIUM 100 MG (COLACE) CAP PO SCH ×2 (11:36→20:36)
[2020-04-21 12:00] VITALS: BP 158/74
--- NOTE | 2020-04-21 12:07 | Occupational Ther Daily Note ---
OT Current Status-Daily Note Subjective Pt. reports 10/10 pain in back with movement. Pt. has had a pain pill. Appearance Pt. in bed. Alert and oriented. No discomfort noted until movement. Mental Status/Objective Patient Orientation: Person, Place Attachments: IV, Oxygen ADL-Treatment Therapy Code Descriptions/Definitions Functional [place] Measure: 0=Not Assessed/NA 4=Minimal Assistance 1=Total Assistance 5=Supervision or Setup 2=Maximal Assistance 6=Modified [place] 3=Moderate Assistance 7=Complete IndependenceSCALE: Activities may be completed with or without assistive devices. 9-Fclcpgbjmg-acvzzvw completes the activity by him/herself with no assistance from a helper. 5-Set-up or Clean-up Assistance-helper sets up or cleans up; patient completes activity. [place] assists only prior to or following the activity. 4-Supervision or Touching Assistance-helper provides verbal cues and/or touching/steadying and/or contact guard assistance as patient completes activity. Assistance may be provided throughout the activity or intermittently. 3-Partial/Moderate Assistance-helper does LESS THAN HALF the effort. [place] lifts, holds or supports trunk or limbs, but provides less than half the effort. 2-Substantial/Maximal Assistance-helper does MORE THAN HALF the effort. [place] lifts or holds trunk or limbs and provides more than half the effort. 8-Pcizpcuop-qczarc does ALL the effort. Patient does none of the effort to complete the activity. Or, the assistance of 2 or more helpers is required for the patient to complete the activity. If activity was not attempted, code reason: 7-Patient Refused. 9-Not Applicable-not attempted and the patient did not perform the activity before the current illness, exacerbation or injury. 10-Not Attempted due to Environmental Limitations-(lack of equipment, weather restraints, etc.). 88-Not Attempted due to Medical Conditions or Safety Concerns. Other Treatment Pt. in bed. Pt. and nursing report that pt. has been up this a.m. for procedure, and has also transferred to [facility]. Spouse in room. Pt. is agreeable to sit on side of bed. OT is able to walk pt. through steps to make transfer easier. Pt. is able to bend right leg to assist with pushing toward left side. OT educates pt. on log roll. Pt. is able to reach with right UE, and roll as one unit to side. At this time, pt. is encouraged to bring right LE off over side of bed. In preparation for supine-sit movement, pt. states, "stop, this hurts my back." Pt. adamant that he has had enough today and does not want to s it on side of bed. Pt. able to bring right LE back onto bed, and roll onto back, positioning hips correctly. Pt. is encouraged how important it is to sit up, and be in upright position throughout day for lungs and pneumonia prevention. Spouse reports that this is her concern as well. Pt. and spouse also educated that pt. unable to take care of self if he isn't able to move even to side of bed. Both verbalize understanding. Pt. verbalizes again that he doesn't want to participate at this time. All needs are met. Education OT Patient Education: Correct positioning, Purpose of tx/functional activities, Reviewed precautions, Rehab process, Transfer techniques Teaching Recipient: Patient Teaching Methods: Demonstration, Discussion Response to Teaching: Verbalize Understanding, Return Demonstration OT Short Term Goals Short Term Goals Time Frame: Apr 27, 2020 Eatin Oral hygiene: 6 Toileting hygiene: 3 Upper body dressin OT Retirement Goals Retirement Goals Time Frame: May 04, 2020 Eating (QC): 6 Oral Hygiene (QC): 6 Toileting Hygiene (QC): 4 Shower/Bathe Self (QC): 4 Upper Body Dressing (QC): 5 Lower Body Dressing (QC): 4 On/Off Footwear (QC): 4 Additional Goals: 1-Demonstrate ADL Tasks, 2-Verbalize Understanding, 3- ImproveStrength/Margot 1=Demonstrate adherence to instructed precautions during ADL tasks. 2=Patient will verbalize/demonstrate understanding of assistive devices/modifications for ADL. 3=Patient will improve strength/tolerance for activity to enable patient to perform ADL's. OT Education/Plan Problem List/Assessment Assessment: Decreased Activ Tolerance, Dependent Transfers, Impaired I ADL's, Impaired Self-Care Skills Discharge Recommendations Plan/Recommendations: Continue POC Therapy Discharge Recommendati: Post Acute OT Treatment Plan/Plan of Care Treatment,Training & Education: Yes Patient would benefit from OT for education, treatment and training to promote independence in ADL's, mobility, safety and/or upper extremity function for ADL's. Plan of Care: ADL Retraining, Functional Mobility, UE Funct Exercise/Act Treatment Duration: May 04, 2020 Frequency: 5 times per week Estimated Hrs Per Day: .25 hour per day Agreement: Yes Rehab Potential: Fair Time/GCodes Start Time: 11:30 Stop Time: 11:40 Total Time Billed (hr/min): 10 Billed Treatment Time 1, BRITNEY CHUNG OT Apr 21, 2020 12:07
--- NOTE | 2020-04-21 13:17 | NUR ---
DR SANTIAGO WAS CALLED ABOUT THE SSI AND THE SCHEDULED INSULIN -- DR SANTIAGO ORDERED TO DC THE SSIB --- AND CONTINUE FSBAS AC AND HS AND TO USE SCHEDULED INSULIN
--- NOTE | 2020-04-21 13:20 | NUR ---
IRF Evaluation Order received to evaluate patient for the ARU. Chart review complete and it appears patient is dependent with bed mobility and requires minimum assistance with bed/chair/wc transfers. Additionally, according to OT progress note, patient verbalizes to therapist that he doesn't want to participate. Patient denied admission: 1) He cannot be expected to actively participate in, and benefit significant from, the intensive rehabilitation therapy program. 2) Inability to tolerate intensive therapies. Thank you for this referral.
[2020-04-21 15:33] VITALS: BP 148/74
--- NOTE | 2020-04-21 15:56 | STRESS TEST ---
DATE OF SERVICE: 04/21/2020 RESTING AND POST REGADENOSON TECHNETIUM-99M TETROFOSMIN SPECT CT IMAGING ORDERING PHYSICIAN: Dr. Gandhi. PRIMARY PHYSICIAN: Dr. Barba. OTHER PHYSICIAN: Dr. Perez, Dr. Escobedo. CLINICAL DIAGNOSIS: Chest discomfort. Baseline images were carried out after injection of 10.31 mCi of technetium-99m Tetrofosmin. This was followed by 0.4 mg regadenoson and 32.5 mCi of technetium-99m Tetrofosmin for stress imaging. The electrocardiogram showed sinus rhythm with incomplete, atypical left bundle branch block. Frequent premature atrial contractions and wandering atrial pacemaker were seen. A few isolated premature ventricular contractions were seen. The patient noted mild shortness of breath following regadenoson which resolved in a few minutes. Images at rest and following stress does not indicate any significant perfusion defects consistent with significant myocardial ischemia or infarction. Gated images show moderate impairment of the left ventricular systolic function with moderate global hypokinesis and a calculated left ventricular ejection fraction of 38%. CONCLUSIONS: 1. No evidence of significant myocardial ischemia or infarction on this study. 2. Moderate global hypokinesis, left ventricle. 3. Moderate impairment of global left ventricular systolic function with a calculated ejection fraction of 38%. Job ID: [id number] DocumentID: [id number] Dictated Date: 04/21/2020 15:44:14 Loan Documentation Specialist Date: 04/21/2020 15:54:50 Dictated By: KAMILLA PEREZ MD, MA, FACP, FACC,
--- NOTE | 2020-04-21 16:04 | Progress Note - Cardiology ---
Cardiology SOAP Progress Note Subjective: Does not currently report chest discomfort States the discomfort that he presented with was upper back and upper chest discomfort following fall. That has been improving No palp or syncope No shortness of breath No n/v/d Objective: I&O/Vital Signs 04/21/20 04/21/20 04/21/20 04/21/20 04:45 08:00 09:00 12:00 Temp 37.2 37.2 37.0 Pulse 76 80 Resp 21 24 B/P (MAP) 157/72 (100) 169/82 (111) Pulse Ox 92 94 95 O2 Delivery Nasal Cannula Nasal Cannula Nasal Cannula O2 Flow Rate 2.00 2.00 1.00 04/21/20 04/21/20 12:00 15:33 Temp 37.0 37.0 Pulse 84 76 Resp 24 20 B/P (MAP) 158/74 (102) 148/74 (98) Pulse Ox 93 97 O2 Delivery Nasal Cannula Nasal Cannula O2 Flow Rate 2.00 2.00 04/21/20 00:00 Intake Total 1640 ml Output Total 750 ml Balance 890 ml Weight (Pounds): 220 Weight (Ounces): 0.0 Weight (Calculated Kilograms): 99.646451 Constitutional: appears stated age, AAO x 3; No apparent distress; well- developed, well-nourished Respiratory: chest is bilaterally symmetric, lungs clear to auscultation, rhonchi (scattered) Cardiovascular: regular rate-rhythm, S1 and S2; No diastolic murmur, No s ystolic murmur Gastrointestional: soft, audible bowel sounds Extremities: other (L AKA), no lower extremity edema bilateral Neurologic/Psychiatric: grossly intact (moves extremities) Skin: No rash on exposed areas, No ulcerations on exposed areas Results/Procedures: Labs Laboratory Tests 04/20/20 17:47: Glucometer 65L 04/20/20 21:05: Glucometer 89 04/21/20 05:00: White Blood Count 10.1, Red Blood Count 4.12L, Hemoglobin 12.4L, Hematocrit 38L, Mean Corpuscular Volume 93, Mean Corpuscular Hemoglobin 30, Mean Corpuscular Hemoglobin Concent 32, Red Cell Distribution Width 14.4, Platelet Count 168, Mean Platelet Volume 10.9H, Neutrophils (%) (Auto) 66, Lymphocytes (%) (Auto) 21, Monocytes (%) (Auto) 10, Eosinophils (%) (Auto) 3, Basophils (%) (Auto) 0, Neutrophils # (Auto) 6.6, Lymphocytes # (Auto) 2.1, Monocytes # (Auto) 1.0, Eosinophils # (Auto) 0.3, Basophils # (Auto) 0.0, Sodium Level 140, Potassium Level 4.4, Chloride Level 109H, Carbon Dioxide Level 19L, Anion Gap 12, Blood Urea Nitrogen 37H, Creatinine 2.22H, Estimat Glomerular Filtration Rate 29, BUN/Creatinine Ratio 17, Glucose Level 123H, Calcium Level 8.6 04/21/20 05:44: Glucometer 122H 04/21/20 11:23: Glucometer 220H 04/21/20 15:35: Glucometer 139H Microbiology 04/18/20 Blood Culture - Preliminary, Resulted No growth A/P: Assessment: Chest pain of undetermined etiology - no evidence of ACS MPI of 04/21/20 showed mod global hypokinesis with no evidence of ischemia or infarction. LVEF38% Recent fall, chest trauma, back trauma, defer to the primary team and trauma service. Acute respiratory failure, pneumonia, on broad-spectrum antibiotics. History of nonischemic cardiomyopathy, request echocardiogram. Echocardiogram done 04/20/2020 shows an EF of 30-35% with global hypokinesis. No evidence of acute congestive heart failure, no significant evidence of congestive heart failure. BNP is normal. Peripheral arterial disease for which he has undergone multiple percutaneous interventions in [place], [place]. Following failed revascularization of the left lower extremity in early , he underwent left above-knee amputation with Dr. Rhodes. ICD in place, Status post single-chamber pacemaker defibrillator implantation, device has reached SHAW per interrogation carried out on 02-11-2015 and he underwent generator change out 02-17-2015. Device is functioning normally per interrogation on January 2020 Anemia, likely due to severe chronic kidney disease. Chronic kidney disease stage IV, likely secondary to diabetes - follows with [facility] services History of TIA, Left lower extremity amputation. Maturity onset diabetes mellitus Hyperlipidemia. History of Tobaccoism. Elevated body mass index of 32. Mild bilat carotid arterial disease on carotid ultrasonography of March 2020 Plan: Management of pneumonia per Medical/Pulmonary services We reviewed his hosp course, including Dr Gandhi's eval Monitor lab closely Replace electrolytes as indicated HTN - BP not well controlled resume Coreg at home dose I spoke with him and his and answered CV-related questions KAMILLA QUESADA MD FACP FACC CCDS Apr 21, 2020 16:04
--- NOTE | 2020-04-21 17:55 | NUR ---
NOTE THAT PT REQUESTED ONLY 20 UNITS OF NOVOLOG -- DR SANTIAGO MADE AWARE -- OK WITH
--- NOTE | 2020-04-21 18:42 | Progress Note - Hospitalist ---
Subjective HPI/CC On Admission Date Seen by Provider: Apr 21, 2020 Time Seen by Provider: 10:00 CC: Hypoxia following fall out of wheelchair HPI: This is a 74yoWM clinic patient of [facility] who has a h/o CRI, PVD, CAD and COPD who is known to me from prior clinic establishment years ago who presents to the [facility] ER with left sided chest pain and rib pain following a fall out of wheelchair at home. He refused to go to ER originally but then could not stand the pain so he came in and then he refused admit but he could not move and function at home so he reluctantly allowed admit and PNA was dx with hypoxia and Pulmonology has provided expertise. Currently the patient is tolerable but refuses to get OOB due to pain increases. Subjective/Events-last exam Pt down for Natasha-scan Creatinine 2.2 May need inpatient rehab or swing bed May also need a snf but apparently does not think that will be required Pain is still an issue, I did start him on long-acting Oxycontin yesterday Review of Systems General: Fatigue Musculoskeletal: back pain Focused Exam Lactate Level 04/18/20 19:29: Lactic Acid Level 1.41 04/19/20 06:56: Lactic Acid Level 1.95 Objective Exam Vital Signs Vital Signs Date Time Temp Pulse Resp B/P (MAP) Pulse Ox O2 Delivery O2 Flow Rate FiO2 04/21/20 15:33 37.0 76 20 148/74 (98) 97 Nasal Cannula 2.00 04/19/20 09:00 92 Capillary Refill : Less Than 3 SecondsLess Than 3 Seconds General Appearance: No Apparent Distress, WD/WN, Chronically ill Respiratory: Chest Non Tender, Lungs Clear, Normal Breath Sounds, No Accessory Muscle Use, No Respiratory Distress Cardiovascular: Regular Rate, Rhythm, No Edema, No Gallop, No JVD, No Murmur, Normal Peripheral Pulses Neurologic/Psychiatric: Alert, Oriented x3, No Motor/Sensory Deficits, Normal Mood/Affect Results/Procedures Lab Laboratory Tests 04/21/20 05:00 Patient resulted labs reviewed. Assessment/Plan Assessment and Plan Assess & Plan/Chief Complaint Assessment: Pneumonia with hypoxia Zosyn maintained COVID-19 swab negative Metabolic acidosis likely due to CRI Hyperkalemia due to CRI and acute illness CHFAE EF 30-35% Anemia of kidney disease DM PVD Left AKA remote hx COPD Defibrillator in place CAD Plan: Abx COVID-19 swab negative Home meds O2 Pain control Pulmo Cards Trauma EST today Admission Status: Inpatient Order (span 2 midnights) Reason for Inpatient Admission: PNA with hypoxia Diagnosis/Problems Diagnosis/Problems (1) Hypoxia Status: Acute (2) Contusion of back Status: Acute (3) Fall from wheelchair Status: Acute Diagnosis/Problems Diagnosis/Problems (1) Hypoxia Status: Acute (2) Contusion of back Status: Acute (3) Fall from wheelchair Status: Acute Clinical Quality Measures DVT/VTE Risk/Contraindication: Risk Factor Score Per Nursin RFS Level Per Nursing on Admit: 4+=Very High BILL SANTIAGO DO Apr 21, 2020 18:42
[2020-04-21 20:23] VITALS: BP 174/68
[2020-04-22] VITALS: BP 150/70
[2020-04-22 04:00] VITALS: BP 189/76
[2020-04-22] MEDS: NS IV 1000 ML 1,000 ML IV SCH (04:06)
[2020-04-22 05:24] VITALS: BP 189/76
[2020-04-22 05:37] LABS: BASOPHILS % (AUTO) 0 % (0-10); EOSINOPHILS # (AUTO) 0.3 10^3/uL (0.0-0.3); EOSINOPHILS % (AUTO) 4 % (0-10); HEMATOCRIT 37 % (40-54); HEMOGLOBIN 12.2 G/DL (13.3-17.7); LYMPHOCYTES # (AUTO) 2.1 X 10^3 (1.0-4.0); LYMPHOCYTES % (AUTO) 24 % (12-44); MEAN CORPUSCULAR HEMOGLOBIN 31 PG (25-34); MEAN CORPUSCULAR HGB CONC 33 G/DL (32-36); MEAN CORPUSCULAR VOLUME 93 FL (80-99); MEAN PLATELET VOLUME 10.9 FL (7.4-10.4); MONOCYTES # (AUTO) 0.9 X 10^3 (0.0-1.0); MONOCYTES % (AUTO) 11 % (0-12); NEUTROPHILS # (AUTO) 5.5 X 10^3 (1.8-7.8); NEUTROPHILS % (AUTO) 62 % (42-75); PLATELET COUNT 152 10^3/uL (130-400); WHITE BLOOD COUNT 8.8 10^3/uL (4.3-11.0)
[2020-04-22 05:58] LABS: POTASSIUM 4.3 MMOL/L (3.6-5.0)
[2020-04-22 05:59] LABS: CALCIUM 8.4 MG/DL (8.5-10.1)
[2020-04-22 06:03] LABS: CREATININE SERUM 1.68 MG/DL (0.60-1.30)
[2020-04-22] MEDS: HYDROcodone/APAP 5 MG/325 MG (LORTAB) TAB PO PRN ×2 (06:31→13:52)
[2020-04-22] MEDS ORDERED: inSUlin ASPART (NovoLOG) 1 UNIT/0.01 ML (CHARGE PER UNIT) SC SCH (07:00)
[2020-04-22] MEDS: RT-ALBUTEROL INHALER HFA (VENTOLIN HFA) 8 GM IH SCH (07:55)
[2020-04-22 08:34] VITALS: BP 169/72
--- NOTE | 2020-04-22 08:34 | Progress Note - Cardiology ---
Cardiology SOAP Progress Note Subjective: Sitting up in bed. Wants to go home. States he feels better today than yesterday. Feels SOB has improved. Objective: I&O/Vital Signs 04/21/20 04/22/20 04/22/20 04/22/20 20:35 00:00 04:00 05:24 Temp 36.2 36.8 36.8 Pulse 67 69 69 Resp 23 22 22 B/P (MAP) 150/70 (96) 189/76 (113) 189/76 (113) Pulse Ox 95 92 92 O2 Delivery Nasal Cannula Nasal Cannula Nasal Cannula Nasal Cannula O2 Flow Rate 2.00 2.00 2.00 2.00 04/22/20 07:55 Pulse Ox 90 O2 Delivery Nasal Cannula O2 Flow Rate 2.00 04/22/20 00:00 Intake Total 540 ml Output Total 1100 ml Balance -560 ml Weight (Pounds): 220 Weight (Ounces): 0.0 Weight (Calculated Kilograms): [id number] Constitutional: appears stated age, AAO x 3; No apparent distress; well- developed, well-nourished Respiratory: No accessory muscle use, No respiratory distress; chest expansion is symmetric, chest is bilaterally symmetric, other (good air entry) Cardiovascular: regular rate-rhythm, S1 and S2; No diastolic murmur, No systolic murmur Gastrointestional: soft, audible bowel sounds Extremities: other (L AKA; no swelling of extremites bilat) Neurologic/Psychiatric: grossly intact (moves extremities) Skin: No rash on exposed areas, No ulcerations on exposed areas Results/Procedures: Labs Laboratory Tests 04/21/20 11:23: Glucometer 220H 04/21/20 15:35: Glucometer 139H 04/21/20 20:37: Glucometer 47*L 04/21/20 21:26: Glucometer 72 04/22/20 05:20: White Blood Count 8.8, Red Blood Count 3.98L, Hemoglobin 12.2L, Hematocrit 37L, Mean Corpuscular Volume 93, Mean Corpuscular Hemoglobin 31, Mean Corpuscular Hemoglobin Concent 33, Red Cell Distribution Width 14.0, Platelet Count 152, Mean Platelet Volume 10.9H, Neutrophils (%) (Auto) 62, Lymphocytes (%) (Auto) 24, Monocytes (%) (Auto) 11, Eosinophils (%) (Auto) 4, Basophils (%) (Auto) 0, Neutrophils # (Auto) 5.5, Lymphocytes # (Auto) 2.1, Monocytes # (Auto) 0.9, Eosinophils # (Auto) 0.3, Basophils # (Auto) 0.0, Sodium Level 138, Potassium Level 4.3, Chloride Level 107, Carbon Dioxide Level 22, Anion Gap 9, Blood Urea Nitrogen 31H, Creatinine 1.68H, Estimat Glomerular Filtration Rate 40, BUN/Creatinine Ratio 18, Glucose Level 149H, Calcium Level 8.4L 04/22/20 06:35: Glucometer 148H Microbiology 04/18/20 Blood Culture - Preliminary, Resulted No growth Laboratory Tests 04/21/20 05:00 04/22/20 05:20 A/P: Assessment: Chest pain of undetermined etiology - no evidence of ACS MPI of 04/21/20 showed mod global hypokinesis with no evidence of ischemia or infarction. [id number]% Recent fall, chest trauma, back trauma, defer to the primary team and trauma service. Acute respiratory failure, pneumonia, on broad-spectrum antibiotics - improved History of nonischemic cardiomyopathy, request echocardiogram. Echocardiogram done 04/20/2020 shows an EF of 30-35% with global hypokinesis. No evidence of acute congestive heart failure, no significant evidence of congestive heart failure. BNP is normal. Peripheral arterial disease for which he has undergone multiple percutaneous interventions in [place], [place]. Following failed revascularization of the left lower extremity in early , he underwent left above-knee amputation with Dr. Rhodes. ICD in place, Status post single-chamber pacemaker defibrillator implantation, device has reached SHAW per interrogation carried out on 02-11-2015 and he underwent generator change out 02-17-2015. Device is functioning normally per interrogation on January 2020 Anemia, likely due to severe chronic kidney disease. Chronic kidney disease stage IV, likely secondary to diabetes - follows with [facility] History of TIA, Left lower extremity amputation. Maturity onset diabetes mellitus Hyperlipidemia. History of Tobaccoism. Elevated body mass index of 32. Mild bilat carotid arterial disease on carotid ultrasonography of March 2020 Plan: Management of pneumonia per Medical/Pulmonary services Monitor lab closely Replace electrolytes as indicated BP not well controlled - increase BB Resume low dose TEDDY d/t CM I spoke with him and his and answered CV-related questions IRINEO BADILLO Apr 22, 2020 08:34
[2020-04-22] MEDS ORDERED: RAMIPRIL 2.5 MG (ALTACE) CAP PO SCH (09:00)
[2020-04-22] MEDS ORDERED: CARVEDILOL 12.5 MG (COREG) TABLET PO SCH (09:00)
--- NOTE | 2020-04-22 09:10 | Physical Therapy Daily Note ---
PT Daily Note-Current Subjective Patient already sitting EOB pre tx,agrees to PT, has 8/10 pain in back, doesn't want to transfer to recliner at this time. Appearance Patient wants to continue to sit EOB post tx, has nurse call, phone, tray, all needs met, in room. Mental Status Patient Orientation: Person, Place, Situation Attachments: Oxygen, IV Transfers SCALE: Activities may be completed with or without assistive devices. 1-Ieikzucodo-paecejp completes the activity by him/herself with no assistance from a helper. 5-Set-up or Clean-up Assistance-helper sets up or cleans up; patient completes activity. [place] assists only prior to or following the activity. 4-Supervision or Touching Assistance-helper provides verbal cues and/or touching/steadying and/or contact guard assistance as patient completes activity. Assistance may be provided throughout the activity or intermittently. 3-Partial/Moderate Assistance-helper does LESS THAN HALF the effort. [place] lifts, holds or supports trunk or limbs, but provides less than half the effort. 2-Substantial/Maximal Assistance-helper does MORE THAN HALF the effort. [place] lifts or holds trunk or limbs and provides more than half the effort. 2-Dlnlbqjif-syvnav does ALL the effort. Patient does none of the effort to complete the activity. Or, the assistance of 2 or more helpers is required for the patient to complete the activity. If activity was not attempted, code reason: 7-Patient Refused. 9-Not Applicable-not attempted and the patient did not perform the activity before the current illness, exacerbation or injury. 10-Not Attempted due to Environmental Limitations-(lack of equipment, weather restraints, etc.). 88-Not Attempted due to Medical Conditions or Safety Concerns. Sit to Stand (QC): 4 Patient stands twice with CGA but from an elevated bed, stands for about 1 min each time and scoots on his right foot toward the head of the bed each time, he cannot hop yet. Exercises Seated Therapy Exercises: Ankle pumps, Long arc quads Seated Reps: 20 (RLE) Treatments standing, LE exercise Assessment Current Status: Fair Progress improved sit to stand, no SOB with activity PT Short Term Goals Short Term Goals Time Frame: Apr 25, 2020 Roll Left & Right: 3 Sit to lyin Lying to sitting on side of be: 3 Sit to stand: 3 Chair/tsa-gp-kocmi transfer: 3 PT Senior Care Goals Senior Care Goals PT Senior Care Goals Time Frame: May 02, 2020 Roll Left & Right (QC): 5 Sit to Lying (QC): 5 Lying-Sitting on Side/Bed(QC): 5 Sit to Stand (QC): 5 Chair/Urm-bg-Wjkrt Xfer(QC): 5 Does the Patient Walk: No and Walking Goal NOT indicated PT Plan Problem List Problem List: Activity Tolerance, Functional Strength, Safety, Balance, Gait, Transfer, Bed Mobility, ROM Treatment/Plan Treatment Plan: Continue Plan of Care Treatment Plan: Bed Mobility, Education, Functional Activity Margot, Functional Strength, Safety, Therapeutic Exercise, Transfers Treatment Duration: May 02, 2020 Frequency: 6 times per week Estimated Hrs Per Day: .5 hour per day Patient and/or Family Agrees t: Yes Safety Risks/Education Patient Education: Transfer Techniques, Correct Positioning, Safety Issues Teaching Recipient: Patient Teaching Methods: Demonstration, Discussion Response to Teaching: Reinforcement Needed Time/GCodes Time In: 0849 Time Out: 0903 Total Billed Treatment Time: 14 Total Billed Treatment 1 visit FA ARON MORRIS PT Apr 22, 2020 09:10
[2020-04-22] MEDS: PANTOPRAZOLE 40 MG (PROTONIX) TAB PO SCH (10:09)
[2020-04-22] MEDS: ENOXAPARIN 30 MG/0.3 ML (LOVENOX) SYR SC SCH (10:09)
[2020-04-22] MEDS: AUGMENTIN 875 MG TAB (AMOXICILLIN/CLAVULANATE) PO SCH (10:09)
[2020-04-22] MEDS: CLOPIDOGREL 75 MG (PLAVIX) TABLET PO SCH (10:10)
[2020-04-22] MEDS: oxyCODONE ER 10 MG (OxyCONTIN CR) TAB PO SCH (10:10)
--- NOTE | 2020-04-22 11:29 | Occupational Ther Daily Note ---
OT Current Status-Daily Note Subjective No pain reported. Pt. states that he is feeling better. Appearance Pt. in bed. Alert and oriented. Agrees to work with OT. Mental Status/Objective Patient Orientation: Person, Place, Time, Situation ADL-Treatment Therapy Code Descriptions/Definitions Functional [place] Measure: 0=Not Assessed/NA 4=Minimal Assistance 1=Total Assistance 5=Supervision or Setup 2=Maximal Assistance 6=Modified [place] 3=Moderate Assistance 7=Complete IndependenceSCALE: Activities may be completed with or without assistive devices. 1-Nhfprnhgwl-cxtqrvd completes the activity by him/herself with no assistance from a helper. 5-Set-up or Clean-up Assistance-helper sets up or cleans up; patient completes activity. [place] assists only prior to or following the activity. 4-Supervision or Touching Assistance-helper provides verbal cues and/or touching/steadying and/or contact guard assistance as patient completes activity. Assistance may be provided throughout the activity or intermittently. 3-Partial/Moderate Assistance-helper does LESS THAN HALF the effort. [place] lifts, holds or supports trunk or limbs, but provides less than half the effort. 2-Substantial/Maximal Assistance-helper does MORE THAN HALF the effort. [place] lifts or holds trunk or limbs and provides more than half the effort. 6-Lebcbcbku-jgfctg does ALL the effort. Patient does none of the effort to complete the activity. Or, the assistance of 2 or more helpers is required for the patient to complete the activity. If activity was not attempted, code reason: 7-Patient Refused. 9-Not Applicable-not attempted and the patient did not perform the activity before the current illness, exacerbation or injury. 10-Not Attempted due to Environmental Limitations-(lack of equipment, weather restraints, etc.). 88-Not Attempted due to Medical Conditions or Safety Concerns. Oral Hygiene (QC): 7 Pt. began treatment with OT. Pt. able to roll to left side with increased time needed, with SBA. OT assisted pt. supine-sit with mod assist. Pt. sitting on side of bed and PT came in to assist with standing, as pt.unsure if he can. PT facilitates transfer while OT assists with hand placement and posture. Pt. does stand x 2, with min assist x 2 and increased time. Pt. is able to pivot foot to left toward HOB. Pt. is able to maintain standing each time with min assist and approximately 30-60 seconds. Pt. sitting on side of bed with PT when OT left room. Pt. declines brushing teeth or hair on side of bed. Education OT Patient Education: Correct positioning, Progress toward Goal/Update tx plan, Purpose of tx/functional activities, Reviewed precautions, Rehab process, Transfer techniques Teaching Recipient: Patient, Family Teaching Methods: Demonstration, Discussion Response to Teaching: Verbalize Understanding, Return Demonstration OT Short Term Goals Short Term Goals Time Frame: Apr 27, 2020 Eatin Oral hygiene: 6 Toileting hygiene: 3 Upper body dressin OT Field Rep Goals Field Rep Goals Time Frame: May 04, 2020 Eating (QC): 6 Oral Hygiene (QC): 6 Toileting Hygiene (QC): 4 Shower/Bathe Self (QC): 4 Upper Body Dressing (QC): 5 Lower Body Dressing (QC): 4 On/Off Footwear (QC): 4 Additional Goals: 1-Demonstrate ADL Tasks, 2-Verbalize Understanding, 3- ImproveStrength/Margot 1=Demonstrate adherence to instructed precautions during ADL tasks. 2=Patient will verbalize/demonstrate understanding of assistive devices/modifications for ADL. 3=Patient will improve strength/tolerance for activity to enable patient to perform ADL's. OT Education/Plan Problem List/Assessment Assessment: Decreased Activ Tolerance Discharge Recommendations Plan/Recommendations: Continue POC Therapy Discharge Recommendati: Home & Family Treatment Plan/Plan of Care Treatment,Training & Education: Yes Patient would benefit from OT for education, treatment and training to promote independence in ADL's, mobility, safety and/or upper extremity function for ADL's. Plan of Care: ADL Retraining, Functional Mobility, UE Funct Exercise/Act Treatment Duration: May 04, 2020 Frequency: 5 times per week Estimated Hrs Per Day: .25 hour per day Agreement: Yes Rehab Potential: Fair Time/GCodes Start Time: 08:45 Stop Time: 09:00 Total Time Billed (hr/min): 15 Billed Treatment Time 5769-1770 OT assist [phone] co-treatment with PT. Please see above note for designated roles. 1, FA x 15 (10minute co-treatment) BRITNEY RASHID OT Apr 22, 2020 11:28
--- NOTE | 2020-04-22 11:52 | NUR ---
pt was unable to walk because his left leg is amputated. when RT entered the room pt was on RA with an SpO2 of 85%. pt was placed on 2 liters of O2 and SpO2 stayed above 95%. Addendum: 04/22/20 at 1153 by KOMAL ROBB RT Amended: Links added.
[2020-04-22] MEDS ORDERED: AMOX1TAB12 PO (12:09)
[2020-04-22] MEDS ORDERED: RMP2.5C PO (12:09)
[2020-04-22] MEDS ORDERED: OXYC10TA55 PO (12:09)
[2020-04-22] MEDS ORDERED: HYDR-83 PO (12:09)
[2020-04-22] MEDS ORDERED: CARV12.53 PO (12:09)
--- NOTE | 2020-04-22 12:10 | Physician Query Clarification ---
PQ-Conflicting Diagnosis Admission/Discharge Admission Date: Apr 18, 2020 at 19:00 Discharge Date: The medical record reflects the following clinical scenario: History/Risk Factors: Pneumonia Hypoxia COPD Clinical Findings: Ilan Sellers APRN documented at 1752 in ED-Given CT findings and hypoxia (88% on room air, 95%on 2L) I did recommend he be swabbed for Covid and admitted to the hospital for supplemental oxygen as well as potentially Lasix and cardiology consult. Vitals on admit: T 36.9, P 84, Resp 18, Pulse Ox 93%. Blood gases: pH 7.39, pC02 40, p02 71, HC03 24, Total C02 25.4, 02 sats 94, Base excess -0.2. Treatment: Nasal cannula 02 at 2L/3L Question: Do you agree with the impression of the Acute respiratory failure per Dr. Gandhi's consult. Please document a response in Progress Note or Discharge Summary. 1. Yes 2. No 3. Other, with explanation of clinical findings 4. Clinically undetermined, no explanation for clinical findings. PHYSICIAN RESPONSE Do you agree w/Consulting Dx?: Yes Please remember a lack of response to the above will prompt a phone page by CDI/Coding staff. In responding to this query, please exercise your independent professional judgment. The purpose of this communication is to more accurately reflect the complexity of your patients condition. The fact that a question is asked does not imply that any particular answer is desired or expected. Thank you for your timely response to this clarification. Requestors name: Kelly Barnard [facility] Phone # ext [phone] or [phone] THIS PHYSICIAN QUERY FORM IS A PERMANENT PART OF THE MEDICAL RECORD KELLY BARNARD Apr 22, 2020 12:10 BILL SANTIAGO DO Apr 22, 2020 12:23
--- NOTE | 2020-04-22 12:11 | D/C HH Face to Face Order ---
D/C Face to Face Orders Reconcile Patient Problems Problems Reviewed?: Yes Instructions for Patient [facility] Patient Instructions/FollowUp: [facility] 1 week Physician to follow Patient: [facility] Discharge Diet for Home: ADA Diet Patient Problems: Fall Left back pain CRI DM Goals for Patient: [place] Patient Data-Allergies,Ht & Wt Patient Allergies: Coded Allergies: NKANo Known Allergies (Unverified Allergy, Mild, 07/25/07) Height (Feet): 5 Height (Inches): 9.00 Weight (Pounds): 220 Weight (Ounces): 0.0 Home Health Need/Face to Face Date of Face to Face: Apr 22, 2020 Clinical Findings: Generalized weakness and fatigue, Non or partial weight bearing I have seen Pt hxqh-an-lgop: Yes Discharged To: Home Diagnosis/Conditions: Fall Left back pain CRI DM Patient is Homebound due to: [place] fall risk due to instabilty, Muscle weakness, Non-weight bearing, Pain w/ambulation, Shortness of breath/distress Homebound Status Due to the above stated illness, injury or surgical procedure (medical condition or diagnosis) and associated clinical findings, the patient is homebound because of his/her inability to leave home except with aid of a supportive device and/or person AND leaving the home requires a considerable and taxing effort or is medically contraindicated. Pt req the following assistanc: Walker, Wheelchair Home Health Nursing Orders Home Health Services Order: Nursing Services, Pocket Maker-Evaluate & Treat, Physical Therapy-Evaluate & Treat Home Health Infusion Therapy Line Start Date: Apr 18, 2020 Certify Stmt I certify that this patient is under my care and that I, a nurse practitioner or a physician; a certified anesthesiologist assistant working with me, had a face to face encounter that - meets the physician face to face encounter requirements with this patient as dated. BILL SANTIAGO DO Apr 22, 2020 12:11
--- NOTE | 2020-04-22 12:13 | Discharge Summary ---
Discharge Summary Hospital Course Was the Problem List Reviewed?: Yes Problems/Dx: (1) Hypoxia Status: Acute (2) Contusion of back Status: Acute (3) Fall from wheelchair Status: Acute Hospital Course Date of Admission: Apr 18, 2020 at 19:00 Admission Diagnosis : Family Physician/Provider: Harris Barba MD Date of Discharge: 04/22/20 Discharge Diagnosis: fall, left back pain without fracture, DM, CAD, PVD Hospital Course: Hospital Course: Pt had an uneventful hospital course for five days after he was admitted for hypoxia and left chest wall pain after falling out of his wheelchair. He was tested for Covid-19 and that was negative. Antibiotics indicated for acute bacterial bronchitis. Pt did require home medication and insulin regimen. He did get good relief from the pain with Oxycontin 10mg twice daily along with Lortab. Cardiology evaluated him, performed the Lexiscan, no significant abnormality so he was tested for home O2 that was arranged for 2 liters continuously, home health with [facility] was arranged. I sent his medication and pain medication antibiotic into [facility] and he was deemed stable for DC since he is chronically ill and he refused to go to inpatient rehab, swing bed, or correction. Labs and Pending Lab Test: Laboratory Tests 04/21/20 15:35: Glucometer 139H 04/21/20 20:37: Glucometer 47*L 04/21/20 21:26: Glucometer 72 04/22/20 05:20: White Blood Count 8.8, Red Blood Count 3.98L, Hemoglobin 12.2L, Hematocrit 37L, Mean Corpuscular Volume 93, Mean Corpuscular Hemoglobin 31, Mean Corpuscular Hemoglobin Concent 33, Red Cell Distribution Width 14.0, Platelet Count 152, Mean Platelet Volume 10.9H, Neutrophils (%) (Auto) 62, Lymphocytes (%) (Auto) 24, Monocytes (%) (Auto) 11, Eosinophils (%) (Auto) 4, Basophils (%) (Auto) 0, Neutrophils # (Auto) 5.5, Lymphocytes # (Auto) 2.1, Monocytes # (Auto) 0.9, Eosinophils # (Auto) 0.3, Basophils # (Auto) 0.0, Sodium Level 138, Potassium Level 4.3, Chloride Level 107, Carbon Dioxide Level 22, Anion Gap 9, Blood Urea Nitrogen 31H, Creatinine 1.68H, Estimat Glomerular Filtration Rate 40, BUN/Creatinine Ratio 18, Glucose Level 149H, Calcium Level 8.4L 04/22/20 06:35: Glucometer 148H 04/22/20 11:06: Glucometer 208H Microbiology 04/18/20 Blood Culture - Preliminary, Resulted No growth Home Meds Active Oxycontin (Oxycodone HCl) 10 Mg Tab.er.12h 10 Mg PO BID Hydrocodone-Acetamin 5-325 mg (Hydrocodone/Acetaminophen) 1 Each Tablet 1 Tab PO Q4H PRN Altace (Ramipril) 2.5 Mg Cap 2.5 Mg PO DAILY Carvedilol 12.5 Mg Tablet 25 Mg PO BID Amox Tr-K Clv 875-125 mg Tab (Amoxicillin/Potassium Clav) 1 Each Tablet 875 Mg PO BID WITH MEALS Reported Neurontin (Gabapentin) 300 Mg Capsule 300 Mg PO TID PRN Carvedilol 25 Mg Tablet 25 Mg PO DAILY LAST FILLED 12-30-2019 #90/90 DAY SUPPLY Ativan (Lorazepam) 0.5 Mg Tablet 0.5 Mg PO BID PRN Sertraline HCl 50 Mg Tablet 50 Mg PO DAILY LAST FILLED 01-29-2020 #30/30 DAY SUPPLY Furosemide 80 Mg Tablet 80 Mg PO Q48H Calcitriol 0.25 Mcg Capsule 0.25 Mg PO DAILY Allopurinol 100 Mg Tablet 100 Mg PO DAILY Aspirin EC (Aspirin) 81 Mg Tablet.dr 81 Mg PO DAILY Simvastatin 40 Mg Tablet 40 Mg PO HS Clopidogrel (Clopidogrel Bisulfate) 75 Mg Tablet 75 Mg PO DAILY Pantoprazole Sodium 40 Mg Tablet.dr 40 Mg PO DAILY Ramipril 5 Mg Capsule 5 Mg PO DAILY Levemir Flextouch (Insulin Detemir) 100 Unit/1 Ml Insuln.pen 65 Units SC HS LAST FILLED 12-10-2019 #15 PENS/ 62 DAY SUPPLY Novolog Flexpen (Insulin Aspart) 300 Units/3 Ml Solution 40 Units SC AC Fish Oil 1,200 mg Softgel ([place]-3 Fatty Acids/Fish Oil) 1 Each Capsule 1,200 Mg PO BID Assessment/Pt Instructions [facility] 1 week Discharge Planning: <30 minutes discharge planning Discharge Instructions Discharge Diet: ADA Diet Discharge Physical Examination Vital Signs Vital Signs Date Time Temp Pulse Resp B/P (MAP) Pulse Ox O2 Delivery O2 Flow Rate FiO2 04/22/20 08:34 36.6 68 19 169/72 (104) 94 Nasal Cannula 2.00 04/19/20 09:00 92 General Appearance: No Apparent Distress, WD/WN, Chronically ill Allergies: Coded Allergies: NKANo Known Allergies (Unverified Allergy, Mild, 07/25/07) Discharge Summary Date of Admission Apr 18, 2020 at 19:00 Date of Discharge Discharge Date: Apr 22, 2020 Admission Diagnosis Assessment: Pneumonia with hypoxia Zosyn maintained while COVID-19 swab returns Metabolic acidosis likely due to CRI Hyperkalemia due to CRI and acute illness CHFAE EF 30-35% Anemia of kidney disease DM PVD Left AKA remote hx COPD Defibrillator in place CAD Plan: Abx COVID-19 swab Home meds O2 Pain control Pulmo Cards Trauma Discharge Diagnosis Assessment: Pneumonia with hypoxia Zosyn maintained COVID-19 swab negative Metabolic acidosis likely due to CRI Hyperkalemia due to CRI and acute illness CHFAE EF 30-35% Anemia of kidney disease DM PVD Left AKA remote hx COPD Defibrillator in place CAD Plan: Abx COVID-19 swab negative Home meds O2 Pain control Pulmo Cards Trauma EST today Admission Status: Inpatient Order (span 2 midnights) Reason for Inpatient Admission: PNA with hypoxia Diagnosis/Problems Diagnosis/Problems (1) Hypoxia Status: Acute (2) Contusion of back Status: Acute (3) Fall from wheelchair Status: Acute (1) Hypoxia Status: Acute (2) Contusion of back Status: Acute (3) Fall from wheelchair Status: Acute Clinical Quality Measures DVT/VTE Risk/Contraindication: Risk Factor Score Per Nursin RFS Level Per Nursing on Admit: 4+=Very High BILL SANTIAGO DO Apr 22, 2020 12:13
[2020-04-22 12:32] VITALS: BP 148/69
--- NOTE | 2020-04-22 13:08 | NUR ---
CM/SS finalized discharge. Plan: Patient will return home with home health and new oxygen. Home Health: The patient reports that he would like [facility] due to his daughter working there. CM/SS contacted [facility] and spoke with Hortensia. A referral packet was faxed with discharge orders and face to face. DME: The patient reports he was on Oxygen many years ago and used [facility]. He would like to use them again. CM/SS faxed oxygen qualifiers, script, face sheet, and H&P. They verbalized that they received the fax and the portable will be delivered to hospital within an hour or so. CM/SS informed the patients nurse and the patient. They verbalized understanding. No further needs at this time.
--- NOTE | 2020-04-22 14:22 | NUR ---
RD ASSESSMENT PMHx: PVD; CAD; COPD; hypercholesterolemia; HTN; DM; GERD; amputation (L AKA); CHF PT INTERACTION: Pt was awake and pleasant during nutrition assessment. Pt states current appetite is great. Note avg PO intake 81% x2d, per chart review. Pt states following a regular diet at home, and has no issues with chewing/swallowing food. Pt states no recent issues with nausea or vomiting. Pt states some frequent issues with constipation and diarrhea. Note last BM was 04/20, and pt currently on bowel regimen of colace BID; and senna BID, per chart review. Pt states no recent wt changes. Note unable to determine recent wt hx, per chart review. Pt states current DM management is "pretty good." Pt states avg blood glucose levels are around 150-180. Note unable to determine recent HbA1c, per chart review. ABNORMAL NUTRITION-RELATED LAB VALUES LOW: Ca 8.4 HIGH: BUN 31; cr 1.68; glu 149 Est. kcal needs: 2109-6191 kcal | 15-18 kcal/kg Est. Pro needs: 84-105 g Pro | 0.8-1.0 g Pro/kg PES STATEMENT: Given current PO intake, no nutrition diagnosis at this time (NO-1.1) INTERVENTION: Continue with current diet order of Heart Healthy diet. Pt may benefit from consistent CHO restriction if blood glucose levels become elevated. Offered diet education on DM management and CHO counting, but pt declined at this time, stating not interested. May attempt to offer again prior to discharge. Will continue to follow and reassess as pt needs, intake, and status change. MONITOR/EVALUATE: PO Intake; Plan of Care; Hydration Status; Weight Status; Lab Values Fanny Spring, MS, RD, LD
--- NOTE | 2020-04-22 14:25 | NUR ---
SIN PINEDA demonstrates understanding of discharge instructions and accurately returns instructions upon questioning. Copy of Post-Discharge Instructions given to PT. SIN PINEDA is able to manage continuing needs after discharge WITH HOME HEALTH CARE AND O2 PER N/C. Patients belongings returned to PT. Patient discharged from [facility]- on 04/22/20 at 1425. SIN PINEDA left floor via W/C, accompanied by STAFF AND PER AUTO.
--- NOTE | 2020-04-22 15:38 | Progress Note - Cardiology ---
Cardiology SOAP Progress Note Subjective: No cp or palp or syncope No shortness of breath at rest Feels better than at time of admission Objective: I&O/Vital Signs 04/22/20 04/22/20 04/22/20 04/22/20 04:00 05:24 07:55 08:34 Temp 36.8 36.8 36.6 Pulse 69 69 68 Resp 22 22 19 B/P (MAP) 189/76 (113) 189/76 (113) 169/72 (104) Pulse Ox 92 92 90 94 O2 Delivery Nasal Cannula Nasal Cannula Nasal Cannula Nasal Cannula O2 Flow Rate 2.00 2.00 2.00 2.00 04/22/20 04/22/20 09:00 12:32 Temp 36.1 Pulse 74 Resp 19 B/P (MAP) 148/69 (95) Pulse Ox 95 90 O2 Delivery Nasal Cannula Nasal Cannula O2 Flow Rate 2.00 2.00 04/22/20 00:00 Intake Total 540 ml Output Total 1100 ml Balance -560 ml Weight (Pounds): 220 Weight (Ounces): 0.0 Weight (Calculated Kilograms): 99.340532 Constitutional: appears stated age, AAO x 3; No apparent distress; well- developed, well-nourished Respiratory: No accessory muscle use, No respiratory distress; chest expansion is symmetric, chest is bilaterally symmetric, other (good air entry) Cardiovascular: regular rate-rhythm, S1 and S2; No diastolic murmur, No systolic murmur Gastrointestional: soft, audible bowel sounds Extremities: other (L AKA; no swelling of extremites bilat) Neurologic/Psychiatric: grossly intact (moves extremities) Skin: No rash on exposed areas, No ulcerations on exposed areas Results/Procedures: Labs Laboratory Tests 04/21/20 20:37: Glucometer 47*L 04/21/20 21:26: Glucometer 72 04/22/20 05:20: White Blood Count 8.8, Red Blood Count 3.98L, Hemoglobin 12.2L, Hematocrit 37L, Mean Corpuscular Volume 93, Mean Corpuscular Hemoglobin 31, Mean Corpuscular Hemoglobin Concent 33, Red Cell Distribution Width 14.0, Platelet Count 152, Mean Platelet Volume 10.9H, Neutrophils (%) (Auto) 62, Lymphocytes (%) (Auto) 24, Monocytes (%) (Auto) 11, Eosinophils (%) (Auto) 4, Basophils (%) (Auto) 0, Neutrophils # (Auto) 5.5, Lymphocytes # (Auto) 2.1, Monocytes # (Auto) 0.9, Eosinophils # (Auto) 0.3, Basophils # (Auto) 0.0, Sodium Level 138, Potassium Level 4.3, Chloride Level 107, Carbon Dioxide Level 22, Anion Gap 9, Blood Urea Nitrogen 31H, Creatinine 1.68H, Estimat Glomerular Filtration Rate 40, BUN/Creatinine Ratio 18, Glucose Level 149H, Calcium Level 8.4L 04/22/20 06:35: Glucometer 148H 04/22/20 11:06: Glucometer 208H Microbiology 04/18/20 Blood Culture - Preliminary, Resulted No growth Laboratory Tests 04/21/20 05:00 04/22/20 05:20 A/P: Assessment: Chest pain of undetermined etiology - no evidence of ACS MPI of 04/21/20 showed mod global hypokinesis with no evidence of ischemia or infarction. [id number]% Recent fall, chest trauma, back trauma, defer to the primary team and trauma service. Acute respiratory failure, pneumonia, on broad-spectrum antibiotics - improved History of nonischemic cardiomyopathy, request echocardiogram. Echocardiogram done 04/20/2020 shows an EF of 30-35% with global hypokinesis. No evidence of acute congestive heart failure, no significant evidence of congestive heart failure. BNP is normal. Peripheral arterial disease for which he has undergone multiple percutaneous interventions in [place], [place]. Following failed revascularization of the left lower extremity in early , he underwent left above-knee amputation with Dr. Rhodes. ICD in place, Status post single-chamber pacemaker defibrillator implantation, device has reached SHAW per interrogation carried out on 02-11-2015 and he underwent generator change out 02-17-2015. Device is functioning normally per interrogation on January 2020 Anemia, likely due to severe chronic kidney disease. Chronic kidney disease stage IV, likely secondary to diabetes - follows with [place] [facility] services History of TIA, Left lower extremity amputation. Maturity onset diabetes mellitus Hyperlipidemia. History of Tobaccoism. Elevated body mass index of 32. Mild bilat carotid arterial disease on carotid ultrasonography of March 2020 Plan: Management of pneumonia per Medical/Pulmonary services Replace electrolytes as indicated BP not well controlled - increase BB Resume low dose TEDDY d/t CM. Monitor labs closely I spoke with him and his and answered CV-related questions Outpt f/u advised, if d/c'd KAMILLA QUESADA MD FACP FAC CCDS Apr 22, 2020 15:38
== END 2020-04-22 14:25 | disposition home health service (06) | DRG 193 ==
LOC: EDUNIT# 16:38 → ER 16:39 → CSD 19:00 → 4TH 04-20 13:27
PROVIDERS: ADMIT Internal Medicine; ATTEND Internal Medicine
DX: J18.9 Pneumonia, unspecified organism (principal); J96.01 Acute respiratory failure with hypoxia; E87.2 Acidosis; N18.4 Chronic kidney disease, stage 4 (severe); J44.0 Chronic obstructive pulmonary disease with (acute) lower respiratory infection; I42.8 Other cardiomyopathies; N17.9 Acute kidney failure, unspecified; S20.222A Contusion of left back wall of thorax, initial encounter; I12.9 Hypertensive chronic kidney disease with stage 1 through stage 4 chronic kidney disease, or unspecified chronic kidney disease; D63.1 Anemia in chronic kidney disease; I25.10 Atherosclerotic heart disease of native coronary artery without angina pectoris; I25.2 Old myocardial infarction; E78.00 Pure hypercholesterolemia, unspecified; E11.40 Type 2 diabetes mellitus with diabetic neuropathy, unspecified; G47.30 Sleep apnea, unspecified; F41.9 Anxiety disorder, unspecified; F17.210 Nicotine dependence, cigarettes, uncomplicated; E66.9 Obesity, unspecified; G54.6 Phantom limb syndrome with pain; J20.9 Acute bronchitis, unspecified; K21.9 Gastro-esophageal reflux disease without esophagitis; Z20.828 Contact with and (suspected) exposure to other viral communicable diseases; E87.5 Hyperkalemia; E11.51 Type 2 diabetes mellitus with diabetic peripheral angiopathy without gangrene; E11.22 Type 2 diabetes mellitus with diabetic chronic kidney disease; W05.0XXA Fall from non-moving wheelchair, initial encounter; Y93.H9 Activity, other involving exterior property and land maintenance, building and construction; Z86.73 Personal history of transient ischemic attack (TIA), and cerebral infarction without residual deficits; Z89.612 Acquired absence of left leg above knee; Z95.810 Presence of automatic (implantable) cardiac defibrillator; Z79.4 Long term (current) use of insulin; Z68.32 Body mass index [BMI] 32.0-32.9, adult
CPT/HCPCS: 36415; 36600; 71045; 71250; 78452; 80048; 80053; 82805; 82962; 83605; 83735; 83880; 84100; 84145; 84484; 85007; 85025; 85027; 87040; 87635; 93017; 93306; 94640; 94760; 94761

== ENCOUNTER 2020-12-26 10:41 | Emergency (ER) | payer MEDICARE, OTHER ==
[~2020-12-26] VITALS: Ht 175 cm; Wt 102.0 kg
[~2020-12-26 10:41] MED LIST changes: +ALLO100T PO; +AMOX-358 PO; +AMOX1TAB12 PO; +ASPI-1238 PO; +CALC0.253 PO; +CARV25TA PO; -FOLI1TAB24 PO; +FOLI1TAB33 PO; +FURO80TA3 PO; +GABA300C PO; +LORA-404 PO; +OXYC10TA55 PO; -PANT40TA3 PO; +PANT40TA52 PO; +PRD20T PO; +RMP2.5C PO; +SERT-413 PO
[2020-12-26 11:11] LABS: BASOPHILS # (AUTO) 0.1 10^3/uL (0.0-0.1); BASOPHILS % (AUTO) 1 % (0-10); EOSINOPHILS # (AUTO) 0.4 10^3/uL (0.0-0.3); EOSINOPHILS % (AUTO) 4 % (0-10); HEMATOCRIT 40 % (40-54); HEMOGLOBIN 12.9 g/dL (13.3-17.7); LYMPHOCYTES # (AUTO) 1.3 10^3/uL (1.0-4.0); LYMPHOCYTES % (AUTO) 14 % (12-44); MEAN CORPUSCULAR HEMOGLOBIN 30 pg (25-34); MEAN CORPUSCULAR HGB CONC 33 g/dL (32-36); MEAN CORPUSCULAR VOLUME 91 fL (80-99); MONOCYTES # (AUTO) 0.5 10^3/uL (0.0-1.0); MONOCYTES % (AUTO) 5 % (0-12); NEUTROPHILS # (AUTO) 6.8 10^3/uL (1.8-7.8); NEUTROPHILS % (AUTO) 76 % (42-75); PLATELET COUNT 192 10^3/uL (130-400)
[2020-12-26 11:18] LABS: ALBUMIN 3.8 GM/DL (3.2-4.5); POTASSIUM 4.4 MMOL/L (3.6-5.0)
[2020-12-26 11:19] LABS: CALCIUM 9.1 MG/DL (8.5-10.1)
[2020-12-26 11:22] LABS: BILIRUBIN,TOTAL 0.6 MG/DL (0.1-1.0)
[2020-12-26 11:24] LABS: CREATININE SERUM 1.74 MG/DL (0.60-1.30)
[2020-12-26 11:27] LABS: BILIRUBIN,URINE NEGATIVE (NEGATIVE); CLARITY,URINE CLEAR; COLOR,URINE YELLOW; GLUCOSE, URINE (UA) NEGATIVE (NEGATIVE); KETONES,URINE NEGATIVE (NEGATIVE); LEUKOCYTE ESTERASE ,URINE NEGATIVE (NEGATIVE); NITRITE,URINE NEGATIVE (NEGATIVE); PROTEIN,URINE 1+ (NEGATIVE)
[2020-12-26 11:36] LABS: AMORPHOUS SEDIMENT,UR RARE AMOR URATES /LPF; BACTERIA,URINE TRACE /HPF; WBC,URINE RARE /HPF
--- NOTE | 2020-12-26 12:30 | Diagnostic Imaging Report ---
PROCEDURE: CT abdomen and pelvis without contrast. TECHNIQUE: Multiple contiguous axial images were obtained through the abdomen and pelvis without the use of intravenous contrast. Auto Exposure Controls were utilized during the CT exam to meet ALARA standards for radiation dose reduction. INDICATION: Low abdominal pain, right-sided. History of hernia. EXAMINATION: CT abdomen and pelvis without contrast 12/26/2020 FINDINGS: There are small bilateral pleural effusions. Diffuse bilateral patchy infiltrates are noted. Clinical exclusion of Covid recommended. The liver and spleen unremarkable. Adrenal glands and pancreas unremarkable. There is evidence of previous cholecystectomy. The kidneys appear atrophied with bilateral nonobstructive stones and vascular calcifications present. There is diffuse atherosclerotic disease along the aorta and its branches. Postoperative change is seen in the distal aorta with bifemoral bypass grafts noted. There is no ascites or free air. Urinary bladder wall is thickened and could be due to incomplete distention versus cystitis. The appendix normal. There is a nonobstructive bowel gas pattern. There is diffuse osteopenia and degenerative disease throughout the osseous structures with a heterogeneous moth-eaten type appearance to the proximal visualized left femur suspicious for a metastatic process. An impending fracture not excluded. Correlate for any tenderness in the region. IMPRESSION: 1. Bilateral pleural effusions with scattered bilateral infiltrates, see above description. 2. Incidental findings throughout the abdomen and the pelvis with no acute intra-abdominal process appreciated. 3. Abnormal appearance to the proximal left femoral diaphysis suspicious for a metastatic process as discussed above. Dictated by: Dictated on workstation # [id number]
--- NOTE | 2020-12-26 13:08 | ED Abdominal Pain ---
General Chief Complaint: Abdominal/GI Problems Stated Complaint: HERNIA PAIN Nursing Triage Note: ARRIVED VIA WC TO ROOM 05 WITH COMPLAINTS OF ABD PAIN X2 MONTHS DUE TO A HERNIA. PT WEARS OXYGEN AT HOME BUT DID NOT ARRIVE WITH ANY ON ET PULSE OX 77% RA. Sepsis Screen: No Definite Risk Source of Information: Patient Exam Limitations: No Limitations History of Present Illness Date Seen by Provider: Dec 26, 2020 Time Seen by Provider: 10:45 Initial Comments This is 75-year-old gentleman presents to the emergency room with complaints of lower abdominal pain for the past 2 months that became more severe last night to today. He denies any vomiting or diarrhea but does admit to some mild nausea. He has no fever. He denies any urinary changes. He has received his first dose of the Covid vaccine about 3 weeks ago. He has had multiple abdominal surgeries including aortic stenting and an open gallbladder resection. Allergies and Home Medications Allergies Coded Allergies: Lisandra Known Allergies (Unverified Allergy, Mild, 07/25/07) Home Medications Allopurinol 100 Mg Tablet, 100 MG PO DAILY, (Reported) Amoxicillin/Potassium Clav 1 Each Tablet, 875 MG PO BID WITH MEALS Prescribed by: BILL SANTIAGO on 04/22/20 1209 Aspirin 81 Mg Tablet.dr, 81 MG PO DAILY, (Reported) Azithromycin 250 Mg Tablet, 250 MG PO UD TAKE 2 TABLETS ON DAY ONE THEN TAKE 1 TABLET DAILY FOR FOUR MORE DAYS Prescribed by: CHRISTIAN SWEENEY on 12/26/20 1432 Calcitriol 0.25 Mcg Capsule, 0.25 MG PO DAILY, (Reported) Carvedilol 12.5 Mg Tablet, 25 MG PO BID Prescribed by: BILL SANTIAGO on 04/22/20 1209 Clopidogrel Bisulfate 75 Mg Tablet, 75 MG PO DAILY, (Reported) Furosemide 80 Mg Tablet, 80 MG PO Q48H, (Reported) Gabapentin 300 Mg Capsule, 300 MG PO TID PRN for PAIN-BREAKTHROUGH, (Reported) Hydrocodone/Acetaminophen 1 Each Tablet, 1 TAB PO Q4H PRN for PAIN-MODERATE (5- 7) Prescribed by: BILL SANTIAGO on 04/22/20 1210 Insulin Aspart 300 Units/3 Ml Solution, 40 UNITS SC AC, (Reported) Insulin Detemir 100 Unit/1 Ml Insuln.pen, 65 UNITS SC HS, (Reported) LAST FILLED 12-10-2019 #15 PENS/ 62 DAY SUPPLY Lorazepam 0.5 Mg Tablet, 0.5 MG PO BID PRN for ANXIETY, (Reported) Wells-3 Fatty Acids/Fish Oil 1 Each Capsule, 1,200 MG PO BID, (Reported) Oxycodone HCl 10 Mg Tab.er.12h, 10 MG PO BID Prescribed by: BILL SANTIAGO on 04/22/20 1210 Pantoprazole Sodium 40 Mg Tablet.dr, 40 MG PO DAILY, (Reported) Ramipril 2.5 Mg Cap, 2.5 MG PO DAILY Prescribed by: BILL SANTIAGO on 04/22/20 1209 Sertraline HCl 50 Mg Tablet, 50 MG PO DAILY, (Reported) LAST FILLED 01-29-2020 #30/30 DAY SUPPLY Simvastatin 40 Mg Tablet, 40 MG PO HS, (Reported) Patient Home Medication List Home Medication List Reviewed: Yes Review of Systems Review of Systems Constitutional: no symptoms reported EENTM: No Symptoms Reported Respiratory: No Symptoms Reported Cardiovascular: No Symptoms Reported Gastrointestinal: See HPI Genitourinary: No Symptoms Reported Musculoskeletal: no symptoms reported Skin: no symptoms reported Psychiatric/Neurological: No Symptoms Reported Endocrine: No Symptoms Reported Hematologic/Lymphatic: No Symptoms Reported Past Bobiajl-Wzabyg-Izcseq Hx Past Med/Social Hx: Reviewed Nursing Past Med/Soc Hx Patient Social History Alcohol Use: Denies Use 2nd Hand Smoke Exposure: No Recent Infectious Disease Expo: No Recent Hopitalizations: Yes Immunizations Up To Date Tetanus Booster (TDap): Unknown PED Vaccines UTD: No Date of Pneumonia Vaccine: Aug 21, 2019 Date of Influenza Vaccine: Aug 07, 2019 Past Medical History Surgeries: Yes (Aortic and iliac STENT , PACEMAKER/DEFIBRILLATOR) Amputation (Left AKA), Gallbladder Respiratory: Yes COPD Currently Using CPAP: No Currently Using BIPAP: No Cardiac: Yes Coronary Artery Disease, Heart Attack, High Cholesterol, Hypertension, Peripheral Vascular Neurological: Yes Neuropathy Reproductive Disorders: No Sexually Transmitted Disease: No HIV/AIDS: No Genitourinary: No Gastrointestinal: Yes Abdominal Hernia, Gastroesophageal Reflux Musculoskeletal: Yes ( PHANTOM PAIN LEFT LEG) Amputee Endocrine: Yes Diabetes, Insulin dep Loss of Vision: Denies Hearing Impairment: Hard of Hearing Cancer: No Psychosocial: No Integumentary: No Blood Disorders: No Adverse Reaction/Blood Tranf: No Family Medical History Cardiovascular disease 19 FATHER, Onset:60 years & older FH: breast cancer 19 MOTHER, Onset:Unknown G8 SISTER, Onset:Unknown FHx: mental retardation G8 SISTER, Onset:Pre- Myocardial infarction G8 BROTHER, Onset:Unknown G8 BROTHER, Onset:Unknown G8 BROTHER, Onset:Unknown G8 BROTHER, Onset:Unknown G8 BROTHER, Onset:Unknown G8 SISTER, Onset:40's - 50 Heart Disease, Cancer, Diabetes Physical Exam Vital Signs Vital Signs - First Documented 12/26/20 12/26/20 10:45 14:50 Temp 36.1 Pulse 112 Resp 22 B/P (MAP) 148/88 (108) Pulse Ox 77 O2 Delivery Room Air O2 Flow Rate 2.00 Capillary Refill : Less Than 3 Seconds Height/Weight/BMI Height: 5'9.00" Weight: 220lbs. 0.0oz. 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, no motor/sensory deficits, alert, normal mood/affect, oriented x 3 Skin: normal color, warm/dry Progress/Results/Core Measures Results/Orders Lab Results Laboratory Tests Test 12/26/20 10:55 12/26/20 11:22 12/26/20 12:58 Range/Units White Blood Count 9.0 4.3-11.0 10^3/uL Red Blood Count 4.32 4.30-5.52 10^6/uL Hemoglobin 12.9 L 13.3-17.7 g/dL Hematocrit 40 40-54 % Mean Corpuscular Volume 91 80-99 fL Mean Corpuscular Hemoglobin 30 25-34 pg Mean Corpuscular Hemoglobin Concent 33 32-36 g/dL Red Cell Distribution Width 14.0 10.0-14.5 % Platelet Count 192 130-400 10^3/uL Mean Platelet Volume 11.0 9.0-12.2 fL Immature Granulocyte % (Auto) 0 % Neutrophils (%) (Auto) 76 H 42-75 % Lymphocytes (%) (Auto) 14 12-44 % Monocytes (%) (Auto) 5 0-12 % Eosinophils (%) (Auto) 4 0-10 % Basophils (%) (Auto) 1 0-10 % Neutrophils # (Auto) 6.8 1.8-7.8 10^3/uL Lymphocytes # (Auto) 1.3 1.0-4.0 10^3/uL Monocytes # (Auto) 0.5 0.0-1.0 10^3/uL Eosinophils # (Auto) 0.4 H 0.0-0.3 10^3/uL Basophils # (Auto) 0.1 0.0-0.1 10^3/uL Immature Granulocyte # (Auto) 0.0 0.0-0.1 10^3/uL Sodium Level 139 135-145 MMOL/L Potassium Level 4.4 3.6-5.0 MMOL/L Chloride Level 106 98-107 MMOL/L Carbon Dioxide Level 21 21-32 MMOL/L Anion Gap 12 5-14 MMOL/L Blood Urea Nitrogen 21 H 7-18 MG/DL Creatinine 1.74 H 0.60-1.30 MG/DL Estimat Glomerular Filtration Rate 39 BUN/Creatinine Ratio 12 Glucose Level 122 H 70-105 MG/DL Calcium Level 9.1 8.5-10.1 MG/DL Corrected Calcium 9.3 8.5-10.1 MG/DL Total Bilirubin 0.6 0.1-1.0 MG/DL Aspartate Amino Transf (AST/SGOT) 15 5-34 U/L Alanine Aminotransferase (ALT/SGPT) 17 0-55 U/L Alkaline Phosphatase 61 40-136 U/L Lactate Dehydrogenase 314 H 125-220 U/L C-Reactive Protein High Sensitivity 2.08 H 0.00-0.50 MG/DL B-Type Natriuretic Peptide 265.9 H <100.0 PG/ML Total Protein 7.0 6.4-8.2 GM/DL Albumin 3.8 3.2-4.5 GM/DL Lipase 11 8-78 U/L Procalcitonin 0.11 H <0.10 NG/ML Urine Color YELLOW Urine Clarity CLEAR Urine pH 7.0 5-9 Urine Specific Allen 1.020 1.016-1.022 Urine Protein 1+ H NEGATIVE Urine Glucose (UA) NEGATIVE NEGATIVE Urine Ketones NEGATIVE NEGATIVE Urine Nitrite NEGATIVE NEGATIVE Urine Bilirubin NEGATIVE NEGATIVE Urine Urobilinogen 1.0 < = 1.0 MG/DL Urine Leukocyte Esterase NEGATIVE NEGATIVE Urine RBC (Auto) NEGATIVE NEGATIVE Urine RBC NONE /HPF Urine WBC RARE /HPF Urine Crystals PRESENT H /LPF Urine Amorphous Sediment RARE TABBY URATES H /LPF Urine Bacteria TRACE /HPF Urine Casts NONE /LPF Urine Mucus NEGATIVE /LPF Urine Culture Indicated NO Coronavirus 2019 (KATY) Negative Negative My Orders Orders - CHRISTIAN YANCEY MD Cbc With Automated Diff (12/26/20 10:56) Comprehensive Metabolic Panel (12/26/20 10:56) Hs C Reactive Protein (12/26/20 10:56) Lipase (12/26/20 10:56) Ua Culture If Indicated (12/26/20 10:56) Ed Iv/Invasive Line Start (12/26/20 10:56) Ct Abdomen/Pelvis Wo (12/26/20 11:45) Chest 1 View, Ap/Pa Only (12/26/20 12:51) Covid 19 Inhouse Test (12/26/20 12:51) Procalcitonin (Pct) (12/26/20 12:51) Hs C Reactive Protein (12/26/20 12:51) LDH (12/26/20 12:51) BNP (12/26/20 13:43) Vital Signs/I&O 12/26/20 12/26/20 10:45 14:50 Temp 36.1 Pulse 112 100 Resp 22 16 B/P (MAP) 148/88 (108) 136/82 Pulse Ox 77 95 O2 Delivery Room Air Nasal Cannula O2 Flow Rate 2.00 Blood Pressure Mean: 108 Progress Progress Note #1: Time: 13:08 Progress Note Lab work was relatively unremarkable except for chronic kidney disease. CT was obtained as there was concern for bowel obstruction given patient's numerous surgical procedures. CT revealed basilar infiltrates suspicious for COVID-19. Covid swab is being obtained. Covid swab and additional lab work are pending. Patient states his pain has now subsided without treatment. There are also lytic lesions of the bone noted in the hips. These were concerning for metastatic disease. Patient gives no history of cancer. Progress Note #2: Time: 14:06 Progress Note I discussed this patient's case with Dr. Sexton and Dr. Josue. Patient's pain is much improved and it seems to be primarily associated with palpation. Although he is at risk for ischemic bowel disease with his numerous vascular pathologies, he does not appear to be having an acute ischemic bowel at this time. Pain has subsided and he has no evidence of edema or fat stranding on the noncontrast CT. I have discussed the lytic lesions with Dr. Josue. He r ecommends an outpatient oncology referral. Rapid Covid test is negative and a BNP is pending to evaluate the appearance of his chest x-ray. Progress Note #3: Time: 14:19 Progress Note Patient was offered CT of the chest for evaluation of possible neoplastic disease. He declined. It was also recommended that he obtain the Covid PCR test after the rapid test was negative. He also declined. I inquired further about his abdominal pain in relation to eating. He states his abdominal pain is not at all related to eating. Because pain has improved without treatment and does not appear to be associated with eating, angina of the bowel seems less likely. Patient desires to be discharged home. I have advised him to take his Lasix today and again tomorrow due to the appearance of pulmonary edema and effusions. He reports he normally only takes his Lasix every other day. He cannot recall the last time he took it. He was advised to have the COVID 19 PCR but declined. I reviewed discharge instructions with him. Diagnostic Imaging Diagonstic Imaging: CT Plain Films/CT/US/NM/MRI: abdomen, pelvis Comments CT abdomen and pelvis viewed by me and report reviewed. See report below: NAME: SIN PINEDA [facility] REC#: [id number] PT STATUS: REG ER : 1945 PHYSICIAN: CHRISTIAN YANCEY MD ADMIT DATE: 12/26/20/ER Signed Date of Exam:12/26/20 CT ABDOMEN/PELVIS WO PROCEDURE: CT abdomen and pelvis without contrast. TECHNIQUE: Multiple contiguous axial images were obtained through the abdomen and pelvis without the use of intravenous contrast. Auto Exposure Controls were utilized during the CT exam to meet ALARA standards for radiation dose reduction. INDICATION: Low abdominal pain, right-sided. History of hernia. EXAMINATION: CT abdomen and pelvis without contrast 12/26/2020 FINDINGS: There are small bilateral pleural effusions. Diffuse bilateral patchy infiltrates are noted. Clinical exclusion of Covid recommended. The liver and spleen unremarkable. Adrenal glands and pancreas unremarkable. There is evidence of previous cholecystectomy. The kidneys appear atrophied with bilateral nonobstructive stones and vascular calcifications present. There is diffuse atherosclerotic disease along the aorta and its branches. Postoperative change is seen in the distal aorta with bifemoral bypass grafts noted. There is no ascites or free air. Urinary bladder wall is thickened and could be due to incomplete distention versus cystitis. The appendix normal. There is a nonobstructive bowel gas pattern. There is diffuse osteopenia and degenerative disease throughout the osseous structures with a heterogeneous moth-eaten type appearance to the proximal visualized left femur suspicious for a metastatic process. An impending fracture not excluded. Correlate for any tenderness in the region. IMPRESSION: 1. Bilateral pleural effusions with scattered bilateral infiltrates, see above description. 2. Incidental findings throughout the abdomen and the pelvis with no acute intra-abdominal process appreciated. 3. Abnormal appearance to the proximal left femoral diaphysis suspicious for a metastatic process as discussed above. Dictated by: Dictated on workstation # [id number] Dict: 12/26/20 1203 Trans: 12/26/20 1313 [facility] [id number] Interpreted by: DEL SEXTON MD Electronically signed by: DEL SEXTON MD 12/26/20 1313 Diagonstic Imaging: Xray Plain Films/CT/US/NM/MRI: chest Comments Chest x-ray viewed by me and report reviewed. See report below: NAME: SIN PINEDA [facility] REC#: [id number] PT STATUS: REG ER : 1945 PHYSICIAN: CHRISTIAN YANCEY MD ADMIT DATE: 12/26/20/ER Signed Date of Exam:12/26/20 CHEST 1 VIEW, AP/PA ONLY INDICATION: Questioned infiltrates. Chest pain. EXAMINATION: Chest 12/26/2020 COMPARISON: 04/19/2020 FINDINGS: The heart is unremarkable. There are bilateral infiltrates throughout both lungs with increased interstitial markings likely due to superimposed edema as well. There is pulmonary vascular congestion. No pneumothorax or effusions. There is a left-sided pacemaker unremarkable in appearance. IMPRESSION: 1. Findings of pulmonary edema as well as likely bilateral infiltrates. Dictated by: Dictated on workstation # [id number] Dict: 12/26/20 1307 Trans: 12/26/20 1313 [facility] [id number] Interpreted by: DEL SEXTON MD Electronically signed by: DEL SEXTON MD 12/26/20 1313 Departure Impression Primary Impression: Lower abdominal pain Additional Impressions: Pulmonary edema Qualified Codes: J81.0 - Acute pulmonary edema Pleural effusion Pulmonary infiltrate Lesion of left femur Disposition: HOME, SELF-CARE Condition: Improved Departure-Patient Inst. Decision time for Depature: 14:19 Referrals: JS CUNHA MD (PCP/Family) Primary Care Physician Patient Instructions: COVID19, Severe Abdominal Pain, Adult (DC) Add. Discharge Instructions: Take a dose of your Lasix today and again tomorrow. Follow-up with your primary care provider soon as possible. At that appointment you need to discuss the appearance of the hip the bone and consider a referral to the Cancer Center for further evaluation. Complete antibiotics as prescribed. You should also quarantine for an additional 3 days to ensure you do not develop symptoms of COVID-19 since your chest x-ray is suggestive. Consider obtaining a repeat COVID-19 test on Monday. Call your primary care provider to discuss. Call with questions or concerns. You may take Tylenol (acetaminophen) up to 1000 mg every 6 hours as needed for your abdominal pain. Return to the emergency room if it becomes severe. Return to the emergency room if you have worsening symptoms. All discharge instructions reviewed with patient and/or family. Voiced understanding. Scripts Azithromycin (Azithromycin) 250 Mg Tablet 250 MG PO UD, #6 TAB TAKE 2 TABLETS ON DAY ONE THEN TAKE 1 TABLET DAILY FOR FOUR MORE DAYS Prov: CHRISTIAN YANCEY MD 12/26/20 Copy Copies To 1: JS CUNHA MD Copies To 2: KAMILLA QUESADA MD [facility] CHRISTIAN YANCEY MD Dec 26, 2020 13:08
[2020-12-26] MEDS ORDERED: AZIT250T12 PO (14:32)
[2020-12-26 14:50] VITALS: BP 136/82
== END 2020-12-26 14:50 | disposition home or self-care (01) ==
LOC: EDUNIT# 10:41 → ER 10:43
DX: R10.30 Lower abdominal pain, unspecified (principal); J81.1 Chronic pulmonary edema; J90 Pleural effusion, not elsewhere classified; R91.8 Other nonspecific abnormal finding of lung field; M89.8X5 Other specified disorders of bone, thigh; I25.2 Old myocardial infarction; E66.9 Obesity, unspecified; E78.00 Pure hypercholesterolemia, unspecified; E11.9 Type 2 diabetes mellitus without complications; I10 Essential (primary) hypertension; K21.9 Gastro-esophageal reflux disease without esophagitis; Z68.33 Body mass index [BMI] 33.0-33.9, adult; Z82.49 Family history of ischemic heart disease and other diseases of the circulatory system; Z80.3 Family history of malignant neoplasm of breast; Z83.3 Family history of diabetes mellitus; Z95.810 Presence of automatic (implantable) cardiac defibrillator; Z20.822 Contact with and (suspected) exposure to COVID-19; Z79.82 Long term (current) use of aspirin; Z79.4 Long term (current) use of insulin
CPT/HCPCS: 71045; 74176; 80053; 81000; 83615; 83690; 83880; 84145; 85025; 86141; 99284; U0002; 36415; 87635

== ENCOUNTER → 2021-01-14 | Outpatient (CLI) | payer MEDICARE, OTHER ==
[~2021-01-14] MED LIST changes: +AZIT250T12 PO; +HOLD METFORMIN - RECEIVED CONTRAST 20 ML VIAL IV SCH; +IOHEXOL 350 MG/ML 100 ML (OMNIPAQUE 350) VIAL IV ONE; +NS 100 ML (IVPB) BAG IV ONE
[2021-01-14] MEDS: CATHETER FLUSH 10 ML SYR IV PRN ×2 (11:21→11:43)
--- NOTE | 2021-01-14 13:38 | Diagnostic Imaging Report ---
EXAMINATION: CT Chest with intravenous contrast. TECHNIQUE: Multiple contiguous axial images were obtained through the chest after the uneventful administration of intravenous contrast. All CT scans use one or more of the following dose optimizing techniques: automated exposure control, MA and/or KvP adjustment based on a patient size and exam type, or iterative reconstruction. HISTORY: Pleural effusion. COMPARISON: 04/18/2020 FINDINGS: There is mild pulmonary edema. No pleural effusion. No pneumothorax. The 13 x 9 mm nodule in the right apex is unchanged. There is no axillary or supraclavicular lymphadenopathy. There is no mediastinal lymphadenopathy. A pacemaker is present. Left ventricle is dilated. There are moderate coronary artery calcifications. No pericardial effusion. Aorta is normal in caliber. Limited views of the upper abdomen show changes of cholecystectomy. There are no suspicious osseous lesions. IMPRESSION: 1. Mild edema with dilated left ventricle. 2. Unchanged right apical nodule, one-year follow-up is recommended. Dictated by: Dictated on workstation # [id number]
--- NOTE | 2021-01-14 18:00 | Diagnostic Imaging Report ---
INDICATION: Pleural effusion. TECHNIQUE: Patient was administered 25.7 mCi technetium 99m MDP intravenously and whole-body imaging was performed after a 3-hour delay. COMPARISON: No prior bone scan is available for comparison. FINDINGS: There is normal uptake of activity by the axial and appendicular skeleton. There is uptake by both kidneys with excretion into the urinary bladder. There is a vertically oriented foci of increased uptake involving left-sided posterior ribs. The pattern would be suggestive of a posttraumatic cause. Patient does have partial amputation of the left leg. No other suspicious foci are seen. IMPRESSION: 1. No scintigraphic evidence of osseous metastatic disease. 2. Probable rib fractures involving left-sided posterior ribs. Dictated by: Dictated on workstation # [id number]
== END ==
LOC: CARD 10:55
PROVIDERS: ATTEND Internal Medicine Hematology & Oncology
DX: R91.1 Solitary pulmonary nodule (principal); I51.7 Cardiomegaly; R93.7 Abnormal findings on diagnostic imaging of other parts of musculoskeletal system
CPT/HCPCS: 71260; 78306; A9503

== ENCOUNTER 2021-01-15 13:02 | Outpatient (RCR) | payer MEDICARE, OTHER ==
[~2021-01-15 13:02] MED LIST changes: -HOLD METFORMIN - RECEIVED CONTRAST 20 ML VIAL IV SCH; -IOHEXOL 350 MG/ML 100 ML (OMNIPAQUE 350) VIAL IV ONE; -NS 100 ML (IVPB) BAG IV ONE; +NS IV 500 ML (CANCER CENTER) 500 ML ONE
== END 2021-04-13 | disposition home or self-care (01) ==
LOC: ONC 13:02
PROVIDERS: ATTEND Internal Medicine Hematology & Oncology
DX: J81.1 Chronic pulmonary edema (principal); I25.10 Atherosclerotic heart disease of native coronary artery without angina pectoris; E11.22 Type 2 diabetes mellitus with diabetic chronic kidney disease; N18.30 Chronic kidney disease, stage 3 unspecified; E78.5 Hyperlipidemia, unspecified; I50.23 Acute on chronic systolic (congestive) heart failure; R91.1 Solitary pulmonary nodule
CPT/HCPCS: 96360; 99213; 99214

== ENCOUNTER → 2021-07-27 | Outpatient (CLI) | payer MEDICARE, OTHER ==
[~2021-07-27] MED LIST changes: -NS IV 500 ML (CANCER CENTER) 500 ML ONE
--- NOTE | 2021-07-27 15:04 | Diagnostic Imaging Report ---
EXAMINATION: CT chest without contrast. TECHNIQUE: Multiple contiguous axial images were obtained through the chest without the use of intravenous contrast. All CT scans use one or more of the following dose optimizing techniques: automated exposure control, MA and/or KvP adjustment based on patient size and exam type or iterative reconstruction. HISTORY: Pulmonary nodule. COMPARISON: 01/14/2021. FINDINGS: There is mild edema. No pleural effusion. No pneumothorax. There is a 12 x 9 mm right apical nodule, previously 13 x 9 mm. There is no axillary or supraclavicular lymphadenopathy. There is no mediastinal lymphadenopathy. Pacemaker is present. Heart size is normal. There are severe coronary artery calcifications. No pericardial effusion. Aorta is normal in caliber. Limited views of the upper abdomen show hepatic steatosis. Gallbladder is absent. There are no suspicious osseous lesions. IMPRESSION: 1. Stable right apical nodule. 2. Mild edema. Dictated by: Dictated on workstation # [id number]
== END ==
LOC: RAD 14:15
PROVIDERS: ATTEND Internal Medicine Hematology & Oncology
DX: J81.1 Chronic pulmonary edema (principal); R91.1 Solitary pulmonary nodule
CPT/HCPCS: 71250

== ENCOUNTER 2021-08-09 09:06 | Day surgery (SDC) | payer MEDICARE, OTHER ==
[~2021-08-09] VITALS: Ht 175.3 cm; Wt 102.1 kg
[2021-08-09] MEDS ORDERED: LACTATED RINGERS 1,000 ML IV STA (09:09)
[2021-08-09] MEDS ORDERED: LACTATED RINGERS 1,000 ML IV ONE (09:10)
[2021-08-09 09:36] VITALS: BP 136/61
[2021-08-09] MEDS ORDERED: proPOfol 200 MG/20 ML (DIPRIVAN) VIAL IV ONE ×2 (09:40→10:16)
[2021-08-09 10:35] VITALS: BP 119/54
--- NOTE | 2021-08-09 10:39 | Progress Note-Post Operative ---
Post-Operative Progess Note Surgeon (s)/Collar Stitcher (s) Surgeon WES PETERS DO Collar Stitcher: VANDANA ChauII Pre-Operative Diagnosis screening Post-Operative Diagnosis Polyp int hemorrrhoids Procedure & Operative Findings Date of Procedure 08/09/21 Procedure Performed/Findings Colon with snare Colon with hot bx PROCEDURE NOTE: After informed consent was obtained, the patient was brought to the endoscopy suite, placed in bed in left lateral decubitus position. He was administered IV sedation by the SPACE PLANNER who then monitored his vitals the entire time, heart rate, blood pressure and pulse ox and the scope was inserted, pushed all the way to about 130 cm and pushed into the cecum, took a picture of appendiceal orifice and noted the ileo-cecal valve. Then slowly withdrew the scope insufflating to look circumferentially at the moore starting in the cecum. Then just outside the cecum saw a flat polyp and elected to do a hot biopsy of it. Continued up the ascending colon to the hepatic flexure, then down the transverse colon to the splenic flexure. Into the descending colon and found a larger polyp on a stalk and elected to do a snare polypectomy to remove the entire polyp. Down into the sigmoid where I found another small polyp and removed it with the snare. Finally into the rectal vault and retroflexed the scope. Took picture of the internal hemorrhoids. The patient tolerated the procedure. He was recovered in endoscopy suite. Anesthesia Type IV sedation by SPACE PLANNER Estimated Blood Loss Estimated blood loss (mL): scant Specimens/Packing Specimens Removed Asc colon polyp desc colon polyp sigmoid polyp WES PETERS DO Aug 09, 2021 10:39
[2021-08-09 10:40] VITALS: BP_SYST 135; BP_SYST 136; BP_DIAS 60; BP_DIAS 76
--- NOTE | 2021-08-09 10:40 | Endoscopy Discharge Instruct ---
Endo Procedure/Findings Findings 1.: Polyp 2.: Internal Hemorrhoids Discharge Instructions - Activity: You might feel a little sleepy until tomorrow. This is due to the medicine you received to relax you. Until tomorrow, you should: NOT drive a car, operate machinery or power tools. NOT drink any alcoholic beverages. NOT make any important decisions or sign importortant papers. Do not return to work until tomorrow, unless otherwise instructed. Resume previous activities tomorrow. Diet: Start by taking liquids. If you tolerate liquids, advance to solid food. 1.: Colonscopy in 5 years Notify Physician - If you experience excessive bleeding, unusual abdominal pain, fever, or chest pain, contact your doctor immediately. WES PETERS DO Aug 09, 2021 10:40
--- NOTE | 2021-08-09 10:50 | Anesthesia-General Post-Op ---
MAC Patient Condition Mental Status/LOC: Same as Preop Cardiovascular: Satisfactory Nausea/Vomiting: Absent Respiratory: Satisfactory Pain: Controlled Complications: Absent Post Op Complications Complications None Follow Up Care/Instructions Patient Instructions None needed. Anesthesiology Discharge Order Discharge Order Patient is doing well, no complaints, stable vital signs, no apparent adverse anesthesia problems. No complications reported per nursing. REYNALDO GERMAIN CRNA Aug 09, 2021 10:50
[2021-08-09 11:05] VITALS: BP 156/88
[2021-08-09 11:06] VITALS: BP 156/88
== END 2021-08-09 11:14 | disposition home or self-care (01) ==
LOC: ENDO 09:06
PROVIDERS: ATTEND Surgery
DX: Z12.11 Encounter for screening for malignant neoplasm of colon (principal); D12.4 Benign neoplasm of descending colon; D12.5 Benign neoplasm of sigmoid colon; K63.5 Polyp of colon; K64.8 Other hemorrhoids; I10 Essential (primary) hypertension; I25.10 Atherosclerotic heart disease of native coronary artery without angina pectoris; I73.9 Peripheral vascular disease, unspecified; E11.42 Type 2 diabetes mellitus with diabetic polyneuropathy; K21.9 Gastro-esophageal reflux disease without esophagitis; J44.9 Chronic obstructive pulmonary disease, unspecified; Z99.81 Dependence on supplemental oxygen; Z95.810 Presence of automatic (implantable) cardiac defibrillator; Z79.899 Other long term (current) drug therapy; Z79.82 Long term (current) use of aspirin; Z79.4 Long term (current) use of insulin
CPT/HCPCS: 82947

== ENCOUNTER 2021-09-10 13:53 | Outpatient (RCR) | payer MEDICARE, OTHER ==
[~2021-09-10 13:53] MED LIST changes: +POTA-164 PO; -POTA10TA14 PO
== END 2021-10-20 | disposition home or self-care (01) ==
LOC: ONC 13:53
PROVIDERS: ATTEND Internal Medicine Hematology & Oncology
DX: J81.1 Chronic pulmonary edema (principal); I25.10 Atherosclerotic heart disease of native coronary artery without angina pectoris; E11.22 Type 2 diabetes mellitus with diabetic chronic kidney disease; N18.30 Chronic kidney disease, stage 3 unspecified; E78.5 Hyperlipidemia, unspecified; I50.23 Acute on chronic systolic (congestive) heart failure; R91.1 Solitary pulmonary nodule
CPT/HCPCS: 99213

== ENCOUNTER 2022-02-28 02:24 | Emergency (ER) | payer MEDICARE, OTHER | END 2022-02-28 03:18 | disposition left against medical advice (07) | LOC: EDUNIT# 02:24 → ER 02:27 | DX: R31.9 Hematuria, unspecified (principal) ==

== ENCOUNTER → 2022-03-03 | Outpatient (CLI) | payer MEDICARE, OTHER ==
--- NOTE | 2022-03-03 15:14 | Diagnostic Imaging Report ---
PROCEDURE: CT chest without contrast. TECHNIQUE: Multiple contiguous axial images were obtained through the chest without the use of intravenous contrast. Auto Exposure Controls were utilized during the CT exam to meet ALARA standards for radiation dose reduction. INDICATION: Oxygen dependency with COPD and pulmonary nodule. COMPARISON with study 07/27/2021. Also compared to 04/18/2020. FINDINGS: Posterior medial right apical pulmonary nodule measures 1.1 cm, unchanged, showing no substantial change from multiple priors. No new lung mass. Coronary artery atherosclerotic vascular calcifications persist. Five-lobed interstitial lung disease unchanged. No acute consolidation. There is no axillary, hilar or mediastinal lymphadenopathy. Cardiomegaly unchanged. No effusion or pneumothorax. The visualized upper abdomen nonacute. IMPRESSION: 1. Continued stable right apical lung nodule with chronic interstitial disease. 2. Cardiomegaly and atherosclerotic vascular calcifications. Dictated by: Dictated on workstation # [id number]
== END ==
LOC: RAD 11:46
PROVIDERS: ATTEND Internal Medicine Hematology & Oncology
DX: J84.9 Interstitial pulmonary disease, unspecified (principal); R91.1 Solitary pulmonary nodule; I51.7 Cardiomegaly; I25.10 Atherosclerotic heart disease of native coronary artery without angina pectoris
CPT/HCPCS: 71250

== ENCOUNTER 2022-04-12 12:03 | Emergency (ER) | payer MEDICARE, OTHER ==
[~2022-04-12] VITALS: Ht 175 cm; Wt 99.0 kg
--- NOTE | 2022-04-12 13:36 | ED Abdominal Pain ---
General Chief Complaint: Abdominal/GI Problems Stated Complaint: ABD PAIN Nursing Triage Note: ARRIVED VIA WC ON HOME OXYGEN WITH COMPLAINTS OF RIGHT SIDED ABD PAIN X3-4 MONTHS. DAUGHTER CONCERENED WITH INCREASE WEAKNESS ET HE IS UNABLE TO GET HIMSELF OUT OF BED OR BATH AND HAS HAS BEEN HAVING DIARRHEA SINCE THE START OF ABD PAIN. Source of Information: Patient, Spouse Exam Limitations: No Limitations History of Present Illness Date Seen by Provider: Apr 12, 2022 Time Seen by Provider: 13:15 Initial Comments Patient to the ER by private conveyance from home with his spouse and chief complaint of right lower quadrant abdominal discomfort swelling for the past 5 months. It comes and goes. The swelling is worse than usual he is also having swelling in his right lower leg. He is little below the knee amputation. He is diabetic and checks his blood sugar 2-3 times a week fasting. He says last time it was 240. No nausea vomiting or dysuria. No chest pain or shortness of air. No orthopnea. MPI 2019 showed moderate global hypokinesis without ischemia and the EF is 38%. AICD in place. Peripheral arterial disease. CKD stage IV. Hyperlipidemia, diabetes, history of smoking, obesity He has had his gallbladder out as well as cardiac surgery. Allergies and Home Medications Allergies Coded Allergies: ARRONANo Known Allergies (Unverified Allergy, Mild, 07/25/07) Patient Home Medication List Home Medication List Reviewed: Yes Allopurinol (Allopurinol) 100 Mg Tablet, 100 MG PO DAILY, (Reported) Entered as Reported by: GISELLE MOYA on 04/21/20 1029 Aspirin (Aspirin EC) 81 Mg Tablet.dr, 81 MG PO DAILY, (Reported) Entered as Reported by: GISELLE MOYA on 04/21/20 1029 Calcitriol (Calcitriol) 0.25 Mcg Capsule, 0.25 MG PO DAILY, (Reported) Entered as Reported by: GISELLE MOYA on 04/21/20 1029 Carvedilol (Carvedilol) 12.5 Mg Tablet, 25 MG PO BID Prescribed by: BILL SANTIAGO on 04/22/20 1209 Clopidogrel Bisulfate (Clopidogrel) 75 Mg Tablet, 75 MG PO DAILY, (Reported) Entered as Reported by: ALIVIA CARDENAS on 12/07/15 0906 Furosemide (Furosemide) 80 Mg Tablet, 80 MG PO Q48H, (Reported) Entered as Reported by: GISELLE MOYA on 04/21/20 1029 Gabapentin (Neurontin) 300 Mg Capsule, 300 MG PO TID PRN for PAIN-BREAKTHROUGH, (Reported) Entered as Reported by: GISELLE MOYA on 04/21/20 1031 Hydrocodone/Acetaminophen (Hydrocodone-Acetamin 5-325 mg) 1 Each Tablet, 1 TAB PO Q4H PRN for PAIN-MODERATE (5-7) Prescribed by: BILL SANTIAGO on 04/22/20 1210 Insulin Aspart (Novolog Flexpen) 300 Units/3 Ml Solution, 40 UNITS SC AC, (Reported) Entered as Reported by: ALIVIA CARDENAS on 12/07/15 0906 Insulin Detemir (Levemir Flextouch) 100 Unit/1 Ml Insuln.pen, 65 UNITS SC HS, (Reported) Entered as Reported by: ALIVIA CARDENAS on 12/07/15 09 Lorazepam (Ativan) 0.5 Mg Tablet, 0.5 MG PO BID PRN for ANXIETY, (Reported) Entered as Reported by: GISELLE MOYA on 04/21/20 1029 Depauw-3 Fatty Acids/Fish Oil (Fish Oil 1,200 mg Softgel) 1 Each Capsule, 1,200 MG PO BID, (Reported) Entered as Reported by: ALIVIA CARDENAS on 12/07/15 09 Oxycodone HCl (Oxycontin) 10 Mg Tab.er.12h, 10 MG PO BID Prescribed by: BILL SANTIAGO on 04/22/20 1210 Pantoprazole Sodium (Pantoprazole Sodium) 40 Mg Tablet.dr, 40 MG PO DAILY, (Reported) Entered as Reported by: ALIVIA CARDENAS on 12/07/15 09 Ramipril (Altace) 2.5 Mg Cap, 2.5 MG PO DAILY Prescribed by: BILL SANTIAGO on 04/22/20 1209 Sertraline HCl (Sertraline HCl) 50 Mg Tablet, 50 MG PO DAILY, (Reported) Entered as Reported by: GISELLE MOYA on 04/21/20 1029 Simvastatin (Simvastatin) 40 Mg Tablet, 40 MG PO HS, (Reported) Entered as Reported by: ALIVIA CARDENAS on 12/07/15 09 Review of Systems Review of Systems Constitutional: No chills, No diaphoresis EENTM: No Blurred Vision, No Double Vision Respiratory: Denies Cough, Denies Orthopnea, Denies Shortness of Air Cardiovascular: Denies Chest Pain; Edema; Denies Lightheadedness Gastrointestinal: Denies Abdomen Distended, Denies Abdominal Pain, Denies Difficulty Swallowing Genitourinary: Denies Drainage, Denies Frequency Musculoskeletal: No back pain, No joint pain Skin: No pruritus, No rash Psychiatric/Neurological: Denies Headache, Denies Numbness All Other Systems Reviewed Negative Unless Noted: Yes Past Yfsedxn-Qmzsda-Kmivco Hx Patient Social History Tobacco Use?: No Smoking Status: Former Smoker Use of E-Cig and/or Vaping dev: No Substance use?: No Alcohol Use?: No Immunizations Up To Date Tetanus Booster (TDap): Unknown PED Vaccines UTD: No Second COVID19 Vaccination Walter: UNKNOWN COVID19 Vaccine Inclusion Internship: UNKNOWN Past Medical History Surgeries: Yes (Aortic and iliac STENT , PACEMAKER/DEFIBRILLATOR) Amputation, Gallbladder Respiratory: Yes (02) COPD Currently Using CPAP: No Currently Using BIPAP: No Cardiac: Yes Coronary Artery Disease, Heart Attack, High Cholesterol, Hypertension, Peripheral Vascular Neurological: Yes Neuropathy Reproductive Disorders: No Sexually Transmitted Disease: No HIV/AIDS: No Genitourinary: No Gastrointestinal: Yes Abdominal Hernia, Gastroesophageal Reflux Musculoskeletal: Yes ( PHANTOM PAIN LEFT LEG) Amputee Endocrine: Yes Diabetes, Insulin dep Loss of Vision: Denies Hearing Impairment: Hard of Hearing Cancer: No Psychosocial: No Integumentary: No Blood Disorders: No Adverse Reaction/Blood Tranf: No Family Medical History Cardiovascular disease 19 FATHER, Onset:60 years & older FH: breast cancer 19 MOTHER, Onset:Unknown G8 SISTER, Onset:Unknown FHx: mental retardation G8 SISTER, Onset:Pre- Myocardial infarction G8 BROTHER, Onset:Unknown G8 BROTHER, Onset:Unknown G8 BROTHER, Onset:Unknown G8 BROTHER, Onset:Unknown G8 BROTHER, Onset:Unknown G8 SISTER, Onset:40's - 50 Heart Disease, Cancer, Diabetes Physical Exam Vital Signs Vital Signs - First Documented 04/12/22 04/12/22 12:40 13:15 Temp 36.3 Pulse 91 B/P (MAP) 62/ Pulse Ox 92 O2 Delivery Nasal Cannula O2 Flow Rate 2.00 Capillary Refill : Height/Weight/BMI Height: 5'9.00" Weight: 220lbs. 0.0oz. 99.247441wj; 32.00 BMI Method:Stated General Appearance: WD/WN, no apparent distress HEENT: PERRL/EOMI, pharynx normal Neck: full range of motion, normal inspection Respiratory: lungs clear, normal breath sounds, no respiratory distress, no accessory muscle use Cardiovascular: normal peripheral pulses, regular rate, rhythm Peripheral Pulses: 2+ Radial Pulses (R), 2+ Radial Pulses (L) Gastrointestinal: normal bowel sounds, soft, no organomegaly (Edema up to the umbilicus), distended, other Extremities: normal capillary refill, pedal edema (Right lower extremity pitting edema 2+. Left lower extremity below the knee amputation) Neurologic/Psychiatric: alert, normal mood/affect, oriented x 3 Skin: normal color, warm/dry Progress/Results/Core Measures Results/Orders Lab Results Laboratory Tests Test 04/12/22 13:50 Range/Units White Blood Count 7.6 4.3-11.0 10^3/uL Red Blood Count 4.64 4.30-5.52 10^6/uL Hemoglobin 13.2 L 13.3-17.7 g/dL Hematocrit 42 40-54 % Mean Corpuscular Volume 90 80-99 fL Mean Corpuscular Hemoglobin 28 25-34 pg Mean Corpuscular Hemoglobin Concent 32 32-36 g/dL Red Cell Distribution Width 15.8 H 10.0-14.5 % Platelet Count 150 130-400 10^3/uL Mean Platelet Volume 11.2 9.0-12.2 fL Immature Granulocyte % (Auto) 0 % Neutrophils (%) (Auto) 70 42-75 % Lymphocytes (%) (Auto) 18 12-44 % Monocytes (%) (Auto) 10 0-12 % Eosinophils (%) (Auto) 1 0-10 % Basophils (%) (Auto) 1 0-10 % Neutrophils # (Auto) 5.3 1.8-7.8 10^3/uL Lymphocytes # (Auto) 1.4 1.0-4.0 10^3/uL Monocytes # (Auto) 0.7 0.0-1.0 10^3/uL Eosinophils # (Auto) 0.1 0.0-0.3 10^3/uL Basophils # (Auto) 0.1 0.0-0.1 10^3/uL Immature Granulocyte # (Auto) 0.0 0.0-0.1 10^3/uL Sodium Level 136 135-145 MMOL/L Potassium Level 5.3 H 3.6-5.0 MMOL/L Chloride Level 103 98-107 MMOL/L Carbon Dioxide Level 23 21-32 MMOL/L Anion Gap 10 5-14 MMOL/L Blood Urea Nitrogen 34 H 7-18 MG/DL Creatinine 1.96 H 0.60-1.30 MG/DL Estimat Glomerular Filtration Rate 35 BUN/Creatinine Ratio 17 Glucose Level 176 H 70-105 MG/DL Calcium Level 9.1 8.5-10.1 MG/DL Corrected Calcium 9.4 8.5-10.1 MG/DL Total Bilirubin 1.6 H 0.1-1.0 MG/DL Aspartate Amino Transf (AST/SGOT) 25 5-34 U/L Alanine Aminotransferase (ALT/SGPT) 17 0-55 U/L Alkaline Phosphatase 140 H 40-136 U/L C-Reactive Protein High Sensitivity 1.27 H 0.00-0.50 MG/DL B-Type Natriuretic Peptide 2218.3 H <100.0 PG/ML Total Protein 7.2 6.4-8.2 GM/DL Albumin 3.6 3.2-4.5 GM/DL Lipase 18 8-78 U/L My Orders Orders - JENISE HOLLEY Ua Culture If Indicated (04/12/22 12:14) Cbc With Automated Diff (04/12/22 12:14) Comprehensive Metabolic Panel (04/12/22 12:14) Hs C Reactive Protein (04/12/22 12:14) Lipase (04/12/22 12:14) Bnp [place] (04/12/22 13:29) Ed Iv/Invasive Line Start (04/12/22 13:29) Chest 1 View, Ap/Pa Only (04/12/22 13:29) Ct Abdomen/Pelvis Wo (04/12/22 13:44) Vital Signs/I&O 04/12/22 04/12/22 12:40 13:15 Temp 36.3 Pulse 91 109 B/P (MAP) 62/ 118/81 Pulse Ox 92 O2 Delivery Nasal Cannula Nasal Cannula O2 Flow Rate 2.00 2.00 Progress Progress Note #1: Time: 13:43 Progress Note Patient is a very difficult historian but it seems like he is here because of increasing edema and about his right leg and his right lower quadrant abdomen as well as some discomfort is going on for 5 months. We will get a noncontrast CT of his abdomen and pelvis and check some labs including a BNP, kidney function and urinalysis. He says the pain is mild and does not want anything for it right now. Progress Note #2: Time: 15:48 Progress Note We discussed the case with Dr. Lara and since patient not requiring any extra work of breathing or extra oxygen over baseline we will give him a dose of 120 mg Lasix and sent him back to Dr. Hamm. He states he was taking 80 mg Lasix daily but they put him on metaxalone so they thought to stop the Lasix. He may need to be on both. His edema has certainly worsened in the past week and a half since he stopped taking furosemide and his potassium is 5.7. Diagnostic Imaging Diagonstic Imaging: Xray Plain Films/CT/US/NM/MRI: chest Comments [facility] [facility] [place], [place] NAME: SIN PINEDA [facility] REC#: [id number] PT STATUS: REG ER : 1945 PHYSICIAN: JENISE HOLLEY MD ADMIT DATE: 04/12/22/ER Draft Date of Exam:04/12/22 CHEST 1 VIEW, AP/PA ONLY INDICATION: Difficulty breathing. Frontal chest obtained at 1:55 p.m. and compared to 12/26/2020. FINDINGS: There is cardiomegaly. Pacemaker is unchanged. There is central vascular congestion with interstitial edema appearing similar in severity to the prior study. There is no new consolidation or pneumothorax or pleural fluid. IMPRESSION: Cardiomegaly and central vascular congestion with interstitial edema, similar in severity to the prior study. No new abnormality. Dictated on workstation # [id number] Dict: 04/12/22 1402 Trans: 04/12/22 1405 [id number] Interpreted by: MARLEE ANGULO MD Electronically signed by: Reviewed: Reviewed by Me Diagonstic Imaging: CT Plain Films/CT/US/NM/MRI: abdomen, pelvis Comments [facility] [facility]. [place], [place] NAME: SIN PINEDA [facility] REC#: [id number] PT STATUS: REG ER : 1945 PHYSICIAN: JENISE HOLLEY MD ADMIT DATE: 04/12/22/ER Draft Date of Exam:04/12/22 CT ABDOMEN/PELVIS WO EXAMINATION: CT abdomen and pelvis without contrast. TECHNIQUE: Multiple contiguous axial images were obtained through the abdomen and pelvis without the use of intravenous contrast. All CT scans use one or more of the following dose optimizing techniques: automated exposure control, MA and/or KvP adjustment based on patient size and exam type or iterative reconstruction. HISTORY: Right lower quadrant abdomen pain COMPARISON: 12/26/2020 FINDINGS: Limited views of the lower thorax show small bilateral pleural effusions, right greater than left with mild pulmonary edema. The liver is normal without focal lesion. There is no biliary ductal dilation. Gallbladder is surgically absent. Pancreas is normal. Spleen is normal. Adrenal glands are normal. There is a simple cyst in the left kidney. The kidneys are atrophic. No suspicious renal lesions. There is no hydronephrosis. Urinary bladder is normal. Bowel is normal in caliber without obstruction or inflammation. The appendix is normal. There is a small amount of ascites. No free air. There are several fat-containing ventral hernias. No abdominal or pelvic lymphadenopathy. There has been an aortobifemoral bypass grafting. There are no suspicious osseus lesions. IMPRESSION: 1. Small amount of ascites and small bilateral pleural effusions with mild pulmonary edema. 2. No acute abnormality in the abdomen or pelvis. Dictated on workstation # [id number] Dict: 04/12/22 1449 Trans: 04/12/22 1501 [facility] [id number] Interpreted by: RONDA NUÑEZ MD Electronically signed by: Reviewed: Reviewed by Me Departure Impression Primary Impression: Pulmonary edema Qualified Codes: J81.1 - Chronic pulmonary edema Additional Impression: Dependent edema Disposition: 01 HOME, SELF-CARE Condition: Stable Departure-Patient Inst. Decision time for Depature: 15:50 Referrals: JS CUNHA MD (PCP/Family) Primary Care Physician Patient Instructions: Heart Failure, Adult (DC) Add. Discharge Instructions: Continue taking her medications as prescribed. Start taking Lasix 80 mg daily until you see Dr. Cunha later this week. Dr. Cunha can repeat some blood work as well as give you another injection of Lasix if needed. Promptly return to the nearest ER if you begin to have worsening shortness of air, chest pain or other worrisome symptoms. All discharge instructions reviewed with patient and/or family. Voiced understanding. Copy Copies To 1: JS CUNHA MD, TITUS J Apr 12, 2022 13:36
[2022-04-12 14:03] LABS: BASOPHILS # (AUTO) 0.1 10^3/uL (0.0-0.1); BASOPHILS % (AUTO) 1 % (0-10); EOSINOPHILS # (AUTO) 0.1 10^3/uL (0.0-0.3); EOSINOPHILS % (AUTO) 1 % (0-10); HEMATOCRIT 42 % (40-54); HEMOGLOBIN 13.2 g/dL (13.3-17.7); LYMPHOCYTES # (AUTO) 1.4 10^3/uL (1.0-4.0); LYMPHOCYTES % (AUTO) 18 % (12-44); MEAN CORPUSCULAR HEMOGLOBIN 28 pg (25-34); MEAN CORPUSCULAR HGB CONC 32 g/dL (32-36); MEAN CORPUSCULAR VOLUME 90 fL (80-99); MEAN PLATELET VOLUME 11.2 fL (9.0-12.2); MONOCYTES # (AUTO) 0.7 10^3/uL (0.0-1.0); MONOCYTES % (AUTO) 10 % (0-12); NEUTROPHILS # (AUTO) 5.3 10^3/uL (1.8-7.8); NEUTROPHILS % (AUTO) 70 % (42-75); PLATELET COUNT 150 10^3/uL (130-400); WHITE BLOOD COUNT 7.6 10^3/uL (4.3-11.0)
--- NOTE | 2022-04-12 14:05 | Diagnostic Imaging Report ---
INDICATION: Difficulty breathing. Frontal chest obtained at 1:55 p.m. and compared to 12/26/2020. FINDINGS: There is cardiomegaly. Pacemaker is unchanged. There is central vascular congestion with interstitial edema appearing similar in severity to the prior study. There is no new consolidation or pneumothorax or pleural fluid. IMPRESSION: Cardiomegaly and central vascular congestion with interstitial edema, similar in severity to the prior study. No new abnormality. Dictated by: Dictated on workstation # [id number]
[2022-04-12 14:32] LABS: ALBUMIN 3.6 GM/DL (3.2-4.5); BILIRUBIN,TOTAL 1.6 MG/DL (0.1-1.0); CALCIUM 9.1 MG/DL (8.5-10.1); CREATININE SERUM 1.96 MG/DL (0.60-1.30); POTASSIUM 5.3 MMOL/L (3.6-5.0); TOTAL PROTEIN 7.2 GM/DL (6.4-8.2)
--- NOTE | 2022-04-12 15:02 | Diagnostic Imaging Report ---
EXAMINATION: CT abdomen and pelvis without contrast. TECHNIQUE: Multiple contiguous axial images were obtained through the abdomen and pelvis without the use of intravenous contrast. All CT scans use one or more of the following dose optimizing techniques: automated exposure control, MA and/or KvP adjustment based on patient size and exam type or iterative reconstruction. HISTORY: Right lower quadrant abdomen pain COMPARISON: 12/26/2020 FINDINGS: Limited views of the lower thorax show small bilateral pleural effusions, right greater than left with mild pulmonary edema. The liver is normal without focal lesion. There is no biliary ductal dilation. Gallbladder is surgically absent. Pancreas is normal. Spleen is normal. Adrenal glands are normal. There is a simple cyst in the left kidney. The kidneys are atrophic. No suspicious renal lesions. There is no hydronephrosis. Urinary bladder is normal. Bowel is normal in caliber without obstruction or inflammation. The appendix is normal. There is a small amount of ascites. No free air. There are several fat-containing ventral hernias. No abdominal or pelvic lymphadenopathy. There has been an aortobifemoral bypass grafting. There are no suspicious osseus lesions. IMPRESSION: 1. Small amount of ascites and small bilateral pleural effusions with mild pulmonary edema. 2. No acute abnormality in the abdomen or pelvis. Dictated by: Dictated on workstation # [id number]
[2022-04-12] MEDS ORDERED: FUROSEMIDE 40 MG/4 ML INJ (LASIX) IVP ONE ×2 (16:00)
[2022-04-12 16:22] VITALS: BP 120/76
== END 2022-04-12 16:20 | disposition home or self-care (01) ==
LOC: EDUNIT# 12:03 → ER 12:04
DX: J81.1 Chronic pulmonary edema (principal); I12.9 Hypertensive chronic kidney disease with stage 1 through stage 4 chronic kidney disease, or unspecified chronic kidney disease; N18.4 Chronic kidney disease, stage 4 (severe); E11.22 Type 2 diabetes mellitus with diabetic chronic kidney disease; E11.51 Type 2 diabetes mellitus with diabetic peripheral angiopathy without gangrene; E11.40 Type 2 diabetes mellitus with diabetic neuropathy, unspecified; E66.9 Obesity, unspecified; J44.9 Chronic obstructive pulmonary disease, unspecified; Z87.891 Personal history of nicotine dependence; Z99.81 Dependence on supplemental oxygen; Z95.810 Presence of automatic (implantable) cardiac defibrillator; Z79.4 Long term (current) use of insulin; Z90.49 Acquired absence of other specified parts of digestive tract
CPT/HCPCS: 36415; 71045; 74176; 80053; 83690; 83880; 85025; 86141

== ENCOUNTER 2022-04-15 17:53 | Emergency (ER) | payer MEDICARE, OTHER ==
[~2022-04-15] VITALS: Ht 170.1 cm; Wt 100.0 kg
[2022-04-15] MEDS ORDERED: DEXTROSE 50% 50 ML (IMS) SYR IV ONE (18:15)
[2022-04-15 18:27] LABS: CREATININE SERUM 1.95 MG/DL (0.60-1.30)
--- NOTE | 2022-04-15 18:28 | ED General ---
General Chief Complaint: Glucose Problems Stated Complaint: LOW BLOOD SUGAR Nursing Triage Note: PT ARRIVAL TO ER [facility]IA [facility] WITH COMPLAINTS OF HYPOGLYCEMIA. PT WAS SEEN TODAY IN DR. CARRASQUILLO OFFICE AND WHILE DRIVING HOME, PATIENT SEEMED TIRED, AND ACTUALLY HAD EPISODES WHERE HE WAS UNRESPONSIVE. PATIENTS [facility] AND PATIENT WAS FOUND TO HAVE BLOOD GLUCOSE OF 23. PATIENT WAS COOL, PALE, AND DIAPHORETIC. EMS STARTED 20 G IV IN RIGHT HAND AND GAVE 12.5 GRAMS OF D-10. PT'S BLOOD SUGAR IMPROVED TO 157. PT ARRIVAL TO ER WITH BG OF 80. PT STATES THAT HE TOOK HIS REGULAR INSULIN TODAY AND ATE NORMAL, BUT DIDN'T BELIEVE HE ATE MUCH HE CLAIMS PER EMS. Source of Information: Patient, EMS Exam Limitations: No Limitations History of Present Illness Date Seen by Provider: Apr 15, 2022 Time Seen by Provider: 17:55 Initial Comments This is 76-year-old gentleman presents to the emergency room with hypoglycemic episode as described above in nursing triage notes. Patient feels "fine" upon my arrival to the exam room and mental status seems stable/baseline. Patient states he did not finish his last meal and perhaps did not get his usual carbohydrate count. He does not believe he altered his insulin administration in any way. Oxygen saturation is stable on 2.5 L/min. He normally wears oxygen at 2 L/min continuously. Allergies and Home Medications Allergies Coded Allergies: Lisandra Known Allergies (Unverified Allergy, Mild, 07/25/07) Patient Home Medication List Home Medication List Reviewed: Yes Allopurinol (Allopurinol) 100 Mg Tablet, 100 MG PO DAILY, (Reported) Entered as Reported by: GISELLE MOYA on 04/21/20 1029 Aspirin (Aspirin EC) 81 Mg Tablet.dr, 81 MG PO DAILY, (Reported) Entered as Reported by: GISELLE MOYA on 04/21/20 1029 Calcitriol (Calcitriol) 0.25 Mcg Capsule, 0.25 MG PO DAILY, (Reported) Entered as Reported by: GISELLE MOYA on 04/21/20 1029 Carvedilol (Carvedilol) 12.5 Mg Tablet, 25 MG PO BID Prescribed by: BILL SANTIAGO on 04/22/20 1209 Clopidogrel Bisulfate (Clopidogrel) 75 Mg Tablet, 75 MG PO DAILY, (Reported) Entered as Reported by: ALIVIA CARDENAS on 12/07/15 09 Furosemide (Furosemide) 80 Mg Tablet, 80 MG PO Q48H, (Reported) Entered as Reported by: GISELLE MOYA on 04/21/20 1029 Gabapentin (Neurontin) 300 Mg Capsule, 300 MG PO TID PRN for PAIN-BREAKTHROUGH, (Reported) Entered as Reported by: GISELLE MOYA on 04/21/20 1031 Hydrocodone/Acetaminophen (Hydrocodone-Acetamin 5-325 mg) 1 Each Tablet, 1 TAB PO Q4H PRN for PAIN-MODERATE (5-7) Prescribed by: BILL SANTIAGO on 04/22/20 1210 Insulin Aspart (Novolog Flexpen) 300 Units/3 Ml Solution, 40 UNITS SC AC, (Reported) Entered as Reported by: ALIVIA CARDENAS on 12/07/15 09 Insulin Detemir (Levemir Flextouch) 100 Unit/1 Ml Insuln.pen, 65 UNITS SC HS, (Reported) Entered as Reported by: ALIVIA CARDENAS on 12/07/15 09 Lorazepam (Ativan) 0.5 Mg Tablet, 0.5 MG PO BID PRN for ANXIETY, (Reported) Entered as Reported by: GISELLE MOYA on 04/21/20 1029 [place]-3 Fatty Acids/Fish Oil (Fish Oil 1,200 mg Softgel) 1 Each Capsule, 1,200 MG PO BID, (Reported) Entered as Reported by: ALIVIA CARDENAS on 12/07/15 09 Oxycodone HCl (Oxycontin) 10 Mg Tab.er.12h, 10 MG PO BID Prescribed by: BILL SANTIAGO on 04/22/20 1210 Pantoprazole Sodium (Pantoprazole Sodium) 40 Mg Tablet.dr, 40 MG PO DAILY, (Reported) Entered as Reported by: ALIVIA CARDENAS on 12/07/15 09 Ramipril (Altace) 2.5 Mg Cap, 2.5 MG PO DAILY Prescribed by: BILL SANTIAGO on 04/22/20 1209 Sertraline HCl (Sertraline HCl) 50 Mg Tablet, 50 MG PO DAILY, (Reported) Entered as Reported by: GISELLE MOYA on 04/21/20 1029 Simvastatin (Simvastatin) 40 Mg Tablet, 40 MG PO HS, (Reported) Entered as Reported by: ALIVIA CARDENAS on 12/07/15 0906 Review of Systems Review of Systems Constitutional: see HPI EENTM: no symptoms reported Respiratory: no symptoms reported Cardiovascular: no symptoms reported Gastrointestinal: no symptoms reported Genitourinary: no symptoms reported Musculoskeletal: no symptoms reported Skin: see HPI Psychiatric/Neurological: See HPI Hematologic/Lymphatic: No Symptoms Reported Immunological/Allergic: no symptoms reported Past Tdbbvhx-Xczomg-Ofijcb Hx Patient Social History Tobacco Use?: No Tobacco type used: Cigarettes Smoking Status: Former Smoker Use of E-Cig and/or Vaping dev: No Substance use?: No Alcohol Use?: No Pt feels they are or have been: No Immunizations Up To Date Tetanus Booster (TDap): Unknown PED Vaccines UTD: No Influenza Vaccine Up-to-Date: Yes; Up-to-Date First/Initial COVID19 Vaccinat: UNKNOWN Second COVID19 Vaccination Walter: UNKNOWN Third COVID19 Vaccination Date: UNKNOWN COVID19 Vaccine Community Service Aide: NOMI Past Medical History Surgeries: Yes (Aortic and iliac STENT , PACEMAKER/DEFIBRILLATOR) Amputation, Gallbladder Respiratory: Yes (02) COPD (Supplemental oxygen at 2 L/min) Currently Using CPAP: No Currently Using BIPAP: No Cardiac: Yes (Systolic heart failure) Coronary Artery Disease, Heart Attack, High Cholesterol, Hypertension, Peripheral Vascular Neurological: Yes Neuropathy Reproductive Disorders: No Sexually Transmitted Disease: No HIV/AIDS: No Genitourinary: No Gastrointestinal: Yes Abdominal Hernia, Gastroesophageal Reflux Musculoskeletal: Yes ( PHANTOM PAIN LEFT LEG) Amputee Endocrine: Yes Diabetes, Insulin dep Loss of Vision: Denies Hearing Impairment: Hard of Hearing Cancer: No Psychosocial: No Integumentary: No Blood Disorders: No Adverse Reaction/Blood Tranf: No Family Medical History Reviewed Nursing Family Hx Cardiovascular disease 19 FATHER, Onset:60 years & older FH: breast cancer 19 MOTHER, Onset:Unknown G8 SISTER, Onset:Unknown FHx: mental retardation G8 SISTER, Onset:Pre- Myocardial infarction G8 BROTHER, Onset:Unknown G8 BROTHER, Onset:Unknown G8 BROTHER, Onset:Unknown G8 BROTHER, Onset:Unknown G8 BROTHER, Onset:Unknown G8 SISTER, Onset:40's - 50 Heart Disease, Cancer, Diabetes Physical Exam Vital Signs Vital Signs - First Documented 04/15/22 04/15/22 18:05 20:51 Temp 36.2 Pulse 110 Resp 18 B/P (MAP) 102/57 (72) Pulse Ox 94 O2 Delivery Room Air O2 Flow Rate 2.00 Capillary Refill : Less Than 3 Seconds Height, Weight, BMI Height: 5'9.00" Weight: 220lbs. 0.0oz. [id number]; 34.00 BMI Method:Stated General Appearance: No Apparent Distress, WD/WN HEENT: PERRL/EOMI, Normal ENT Inspection, Other (Mucous membranes moist) Neck: Normal Inspection; No JVD Respiratory: Lungs Clear, Normal Breath Sounds, Other (Slight increased effort on expiration) Cardiovascular: No Edema, No Murmur, Tachycardia (Mild, regular) Gastrointestinal: Non Tender, Soft; No Distended Extremity: Pedal Edema, Other (Left leg amputation) Neurologic/Psychiatric: Alert, Oriented x3, No Motor/Sensory Deficits, Normal Mood/Affect, roof slater II-XII Norm as Tested Skin: Normal Color, Warm/Dry Progress/Results/Core Measures Suspected Sepsis SIRS Temperature: Pulse: 110 Respiratory Rate: 18 Blood Pressure 102 /57 Mean: 72 Laboratory Tests 04/15/22 18:00: Creatinine 1.95H Results/Orders Lab Results Laboratory Tests Test 04/15/22 17:58 04/15/22 18:00 04/15/22 19:36 04/15/22 20:12 Range/Units Glucometer 80 99 111 H 70-110 MG/DL Sodium Level 138 135-145 MMOL/L Potassium Level 4.0 3.6-5.0 MMOL/L Chloride Level 100 98-107 MMOL/L Carbon Dioxide Level 23 21-32 MMOL/L Anion Gap 15 H 5-14 MMOL/L Blood Urea Nitrogen 36 H 7-18 MG/DL Creatinine 1.95 H 0.60-1.30 MG/DL Estimat Glomerular Filtration Rate 35 BUN/Creatinine Ratio 18 Glucose Level 92 70-105 MG/DL Calcium Level 9.0 8.5-10.1 MG/DL Test 04/15/22 20:43 Range/Units Glucometer 129 H 70-110 MG/DL My Orders Orders - CHRISTIAN YANCEY MD Ed Iv/Invasive Line Start (04/15/22 18:04) Basic Metabolic Panel (04/15/22 18:04) Accucheck Stat ONCE (04/15/22 18:04) Accucheck Stat ONCE (04/15/22 18:04) D50w (Emergency) Syringe (Dextrose 50% 5 (04/15/22 18:15) General/Regular (04/15/22 Dinner) Accucheck Stat ONCE (04/15/22 19:33) Accucheck Stat ONCE (04/15/22 20:09) Accucheck Stat ONCE (04/15/22 20:28) Medications Given in ED Vital Signs/I&O 04/15/22 04/15/22 18:05 20:51 Temp 36.2 36.5 Pulse 110 106 Resp 18 20 B/P (MAP) 102/57 (72) 131/73 Pulse Ox 94 95 O2 Delivery Room Air Nasal Cannula O2 Flow Rate 2.00 Capillary Refill : Less Than 3 Seconds Blood Pressure Mean: 72 Point of Care Testing Finger Stick Blood Glucose: 80 Blood Glucose Action Taken: NOTIFIED Progress Note #1: Time: 18:29 Progress Note Patient was seen and examined by Dr. Ozuna on arrival and then by me at shift change. We are checking basic chemistry labs and providing additional D50 along with a meal. We will watch him for couple of hours to ensure his blood sugar remained stable. Progress Note #2: Time: 20:48 Progress Note Blood sugar was trended after giving 25 g of D50 and having the patient eat. There was a gradual trend upward and patient was stable. He was ultimately discharged home with instructions to monitor his blood sugars frequently through the night. See discharge instructions for further discussion. Progress Note #3: Time: 20:53 Progress Note Unfortunately, discharge is being delayed due to no portable oxygen. Family forgot to bring his portable oxygen. They have to drive back to [place] to get it. Departure Impression Primary Impression: Hypoglycemia Disposition: 01 HOME, SELF-CARE Condition: Improved Departure-Patient Inst. Decision time for Depature: 20:47 Referrals: JS CUNHA MD (PCP/Family) Primary Care Physician Patient Instructions: Low Blood Sugar in People With Diabetes Add. Discharge Instructions: Eat some food and with carbohydrates when you return home. Check your blood sugar every couple of hours through the night to ensure your blood sugar is not dropping. Set an alarm if necessary. Call your primary care provider as soon as possible to arrange a follow-up appointment. Return to the ER if you have any other worsening problems. All discharge instructions reviewed with patient and/or family. Voiced understanding. Copy Copies To 1: JS CUNHA MD, JOSHUA T MD Apr 15, 2022 18:28
[2022-04-15 20:51] VITALS: BP 131/73
== END 2022-04-15 21:55 | disposition home or self-care (01) ==
LOC: EDUNIT# 17:53 → ER 17:54
DX: E11.649 Type 2 diabetes mellitus with hypoglycemia without coma (principal); E11.40 Type 2 diabetes mellitus with diabetic neuropathy, unspecified; J44.9 Chronic obstructive pulmonary disease, unspecified; Z79.4 Long term (current) use of insulin; Z99.81 Dependence on supplemental oxygen; Z87.891 Personal history of nicotine dependence
CPT/HCPCS: 36415; 80048; 82947

== ENCOUNTER 2022-05-23 20:55 | Emergency (ER) | payer MEDICARE, OTHER ==
[~2022-05-23] VITALS: Ht 175.2 cm; Wt 92.5 kg
[2022-05-23 21:20] VITALS: BP 116/64
--- NOTE | 2022-05-23 21:31 | ED GU-Male ---
General Chief Complaint: - Reproductive Stated Complaint: DIFF URINATING/GENITAL PAIN Source: patient Exam Limitations: no limitations (MARY STREETER APRN) History of Present Illness Date Seen by Provider: May 23, 2022 Time Seen by Provider: 21:28 Initial Comments To ER with reports of suprapubic fullness and pain as well as hematuria onset about 3 PM today. No vomiting no fevers. Timing/Duration: this afternoon Severity/Quality: moderate Location: suprapubic Radiation: none Activities at Onset: none Prior Genitourinary Problems: none Associated Symptoms: denies symptoms (MARY STREETER APRN) Allergies and Home Medications Allergies Coded Allergies: NKANo Known Allergies (Unverified Allergy, Mild, 07/25/07) Patient Home Medication List Home Medication List Reviewed: Yes (MARY STREETER APRN) Allopurinol (Allopurinol) 100 Mg Tablet, 100 MG PO DAILY, (Reported) Entered as Reported by: GISELLE MOYA on 04/21/20 1029 Aspirin (Aspirin EC) 81 Mg Tablet.dr, 81 MG PO DAILY, (Reported) Entered as Reported by: GISELLE MOYA on 04/21/20 1029 Calcitriol (Calcitriol) 0.25 Mcg Capsule, 0.25 MG PO DAILY, (Reported) Entered as Reported by: GISELLE MOYA on 04/21/20 1029 Carvedilol (Carvedilol) 12.5 Mg Tablet, 25 MG PO BID Prescribed by: BILL SANTIAGO on 04/22/20 1209 Cefuroxime Axetil (Cefuroxime) 250 Mg Tablet, 250 MG PO BID Prescribed by: MARY STREETER on 05/23/22 2223 Clopidogrel Bisulfate (Clopidogrel) 75 Mg Tablet, 75 MG PO DAILY, (Reported) Entered as Reported by: ALIVIA CARDENAS on 12/07/15 0906 Furosemide (Furosemide) 80 Mg Tablet, 80 MG PO Q48H, (Reported) Entered as Reported by: GISELLE MOYA on 04/21/20 1029 Gabapentin (Neurontin) 300 Mg Capsule, 300 MG PO TID PRN for PAIN-BREAKTHROUGH, (Reported) Entered as Reported by: GISELLE MOYA on 04/21/20 1031 Hydrocodone/Acetaminophen (Hydrocodone-Acetamin 5-325 mg) 1 Each Tablet, 1 TAB PO Q4H PRN for PAIN-MODERATE (5-7) Prescribed by: BILL SANTIAGO on 04/22/20 1210 Insulin Aspart (Novolog Flexpen) 300 Units/3 Ml Solution, 40 UNITS SC AC, (Reported) Entered as Reported by: ALIVIA CARDENAS on 12/07/15 09 Insulin Detemir (Levemir Flextouch) 100 Unit/1 Ml Insuln.pen, 65 UNITS SC HS, (Reported) Entered as Reported by: ALIVIA CARDENAS on 12/07/15 09 Lorazepam (Ativan) 0.5 Mg Tablet, 0.5 MG PO BID PRN for ANXIETY, (Reported) Entered as Reported by: GISELLE MOYA on 04/21/20 1029 [place]-3 Fatty Acids/Fish Oil (Fish Oil 1,200 mg Softgel) 1 Each Capsule, 1,200 MG PO BID, (Reported) Entered as Reported by: ALIVIA CARDENAS on 12/07/15 09 Oxycodone HCl (Oxycontin) 10 Mg Tab.er.12h, 10 MG PO BID Prescribed by: BILL SANTIAGO on 04/22/20 1210 Pantoprazole Sodium (Pantoprazole Sodium) 40 Mg Tablet.dr, 40 MG PO DAILY, (Reported) Entered as Reported by: ALIVIA CARDENAS on 12/07/15 09 Phenazopyridine HCl (Pyridium) 100 Mg Tablet, 100 MG PO TID Prescribed by: MARY STREETER on 05/23/22 2223 Ramipril (Altace) 2.5 Mg Cap, 2.5 MG PO DAILY Prescribed by: BILL SANTIAGO on 04/22/20 1209 Sertraline HCl (Sertraline HCl) 50 Mg Tablet, 50 MG PO DAILY, (Reported) Entered as Reported by: GISELLE MOYA on 04/21/20 1029 Simvastatin (Simvastatin) 40 Mg Tablet, 40 MG PO HS, (Reported) Entered as Reported by: ALIVIA CARDENAS on 12/07/15 09 Review of Systems Review of Systems Constitutional: see HPI EENTM: see HPI Respiratory: no symptoms reported Cardiovascular: no symptoms reported Genitourinary: see HPI, dysuria, hematuria Musculoskeletal: no symptoms reported Skin: no symptoms reported Psychiatric/Neurological: No Symptoms Reported Endocrine: No Symptoms Reported Hematologic/Lymphatic: No Symptoms Reported (MARY STREETER APRN) Past Orekkpb-Gwlinx-Szbgqe Hx Immunizations Up To Date Tetanus Booster (TDap): Unknown PED Vaccines UTD: No First/Initial COVID19 Vaccinat: UNKNOWN Second COVID19 Vaccination Walter: UNKNOWN Third COVID19 Vaccination Date: UNKNOWN (MARY STREETER APRN) Past Medical History Surgeries: Yes (Aortic and iliac STENT , PACEMAKER/DEFIBRILLATOR) Amputation, Gallbladder Respiratory: Yes (02) COPD Currently Using CPAP: No Currently Using BIPAP: No Cardiac: Yes (Systolic heart failure) Coronary Artery Disease, Heart Attack, High Cholesterol, Hypertension, Peripheral Vascular Neurological: Yes Neuropathy Reproductive Disorders: No Sexually Transmitted Disease: No HIV/AIDS: No Genitourinary: No Gastrointestinal: Yes Abdominal Hernia, Gastroesophageal Reflux Musculoskeletal: Yes ( PHANTOM PAIN LEFT LEG) Amputee Endocrine: Yes Diabetes, Insulin dep Loss of Vision: Denies Hearing Impairment: Hard of Hearing Cancer: No Psychosocial: No Integumentary: No Blood Disorders: No Adverse Reaction/Blood Tranf: No (MARY STREETER APRN) Family Medical History Cardiovascular disease 19 FATHER, Onset:60 years & older FH: breast cancer 19 MOTHER, Onset:Unknown G8 SISTER, Onset:Unknown FHx: mental retardation G8 SISTER, Onset:Pre- Myocardial infarction G8 BROTHER, Onset:Unknown G8 BROTHER, Onset:Unknown G8 BROTHER, Onset:Unknown G8 BROTHER, Onset:Unknown G8 BROTHER, Onset:Unknown G8 SISTER, Onset:40's - 50 Heart Disease, Cancer, Diabetes (MARY STREETER APRN) Physical Exam Vital Signs Vital Signs - First Documented 05/23/22 21:20 Temp 36.4 Pulse 108 Resp 26 B/P (MAP) 116/64 (81) Pulse Ox 95 O2 Delivery Nasal Cannula O2 Flow Rate 2.00 (CHRISTIAN YANCEY MD) Vital Signs Capillary Refill : (MARY STREETER APRN) Height, Weight, BMI Height: 5'9.00" Weight: 220lbs. 0.0oz. 99.009305jx; 34.00 BMI Method:Stated General Appearance: WD/WN, no apparent distress HEENT: PERRL/EOMI, normal ENT inspection, TMs normal Neck: non-tender, full range of motion Respiratory: normal breath sounds, no respiratory distress, no accessory muscle use Gastrointestinal: normal bowel sounds, non tender, soft Extremities: normal range of motion, non-tender, other (Left qwevl-eik-iikh amputation) Neurologic/Psychiatric: alert, normal mood/affect, oriented x 3 Skin: normal color, warm/dry (MARY STREETER APRN) Progress/Results/Core Measures Suspected Sepsis SIRS Temperature: Pulse: Respiratory Rate: Laboratory Tests 05/23/22 21:25: White Blood Count 10.5 Blood Pressure / Mean: Laboratory Tests 05/23/22 21:25: Creatinine 2.28H, Platelet Count 152 (MARY STREETER APRN) Results/Orders Lab Results Laboratory Tests Test 05/23/22 21:16 05/23/22 21:25 Range/Units Urine Color RED H Urine Clarity CLOUDY Urine pH 7.0 5-9 Urine Specific [place] 1.015 L 1.016-1.022 Urine Protein 3+ H NEGATIVE Urine Glucose (UA) NEGATIVE NEGATIVE Urine Ketones TRACE H NEGATIVE Urine Nitrite POSITIVE H NEGATIVE Urine Bilirubin NEGATIVE NEGATIVE Urine Urobilinogen 4.0 < = 1.0 MG/DL Urine Leukocyte Esterase 1+ H NEGATIVE Urine RBC (Auto) 3+ H NEGATIVE Urine RBC >100 H /HPF Urine WBC >100 H /HPF Urine Squamous Epithelial Cells NONE /HPF Urine Renal Epithelial Cells NONE /HPF Urine Crystals NONE /LPF Urine Bacteria NEGATIVE /HPF Urine Casts NONE /LPF Urine Mucus NEGATIVE /LPF Urine Culture Indicated YES White Blood Count 10.5 4.3-11.0 10^3/uL Red Blood Count 5.26 4.30-5.52 10^6/uL Hemoglobin 14.7 13.3-17.7 g/dL Hematocrit 46 40-54 % Mean Corpuscular Volume 87 80-99 fL Mean Corpuscular Hemoglobin 28 25-34 pg Mean Corpuscular Hemoglobin Concent 32 32-36 g/dL Red Cell Distribution Width 17.2 H 10.0-14.5 % Platelet Count 152 130-400 10^3/uL Mean Platelet Volume 11.8 9.0-12.2 fL Immature Granulocyte % (Auto) 0 % Neutrophils (%) (Auto) 65 42-75 % Lymphocytes (%) (Auto) 23 12-44 % Monocytes (%) (Auto) 8 0-12 % Eosinophils (%) (Auto) 3 0-10 % Basophils (%) (Auto) 1 0-10 % Neutrophils # (Auto) 6.8 1.8-7.8 10^3/uL Lymphocytes # (Auto) 2.5 1.0-4.0 10^3/uL Monocytes # (Auto) 0.8 0.0-1.0 10^3/uL Eosinophils # (Auto) 0.3 0.0-0.3 10^3/uL Basophils # (Auto) 0.1 0.0-0.1 10^3/uL Immature Granulocyte # (Auto) 0.0 0.0-0.1 10^3/uL Sodium Level 133 L 135-145 MMOL/L Potassium Level 4.9 3.6-5.0 MMOL/L Chloride Level 95 L 98-107 MMOL/L Carbon Dioxide Level 19 L 21-32 MMOL/L Anion Gap 19 H 5-14 MMOL/L Blood Urea Nitrogen 61 H 7-18 MG/DL Creatinine 2.28 H 0.60-1.30 MG/DL Estimat Glomerular Filtration Rate 29 BUN/Creatinine Ratio 27 Glucose Level 124 H 70-105 MG/DL Calcium Level 9.8 8.5-10.1 MG/DL (CHRISTIAN YANCEY MD) Micro Results Microbiology 05/23/22 Urine Culture - Preliminary, Resulted Culture In Progress (CHRISTIAN YANCEY MD) Vital Signs/I&O 05/23/22 21:20 Temp 36.4 Pulse 108 Resp 26 B/P (MAP) 116/64 (81) Pulse Ox 95 O2 Delivery Nasal Cannula O2 Flow Rate 2.00 (CHRISTIAN YANCEY MD) Vital Signs/I&O Capillary Refill : (MARY STREETER APRN) Departure Communication (Admissions) 222-post void residual bladder scan revealed 15 mL urine within the bladder. (MARY STREETER APRN) Impression Primary Impression: Urinary tract infection Additional Impression: Hematuria Disposition: 01 HOME, SELF-CARE Condition: Stable Departure-Patient Inst. Decision time for Depature: 21:57 (MARY STREETER APRN) Referrals: JS CUNHA MD (PCP/Family) Primary Care Physician Patient Instructions: Urinary Tract Infection, Adult (DC), Blood in the Urine (Hematuria) in Adults Add. Discharge Instructions: The medication called phenazopyridine should be taken 3 times a day for 2 more days. Do not be alarmed, this will turn your urine a very dark orange color. Return to ER for any concerns. Take the antibiotic as directed. Follow-up with your doctor later this week for recheck. All discharge instructions reviewed with patient and/or family. Voiced understanding. Scripts Cefuroxime Axetil (Cefuroxime) 250 Mg Tablet 250 MG PO BID, #20 TAB Prov: MARY STREETER APRN 05/23/22 Phenazopyridine HCl (Pyridium) 100 Mg Tablet 100 MG PO TID, #6 TAB Prov: MARY STREETER APRN 05/23/22 ATTENDING PHYSICIAN NOTE: I was physically present as attending physician in the emergency department during the care of this patient, but I was not directly involved in the decision making or delivery of care for this patient. (CHRISTIAN YANCEY MD) MARY STREETER APRN May 23, 2022 21:31 CHRISTIAN YANCEY MD May 25, 2022 07:02
[2022-05-23 21:32] LABS: BASOPHILS # (AUTO) 0.1 10^3/uL (0.0-0.1); BASOPHILS % (AUTO) 1 % (0-10); EOSINOPHILS # (AUTO) 0.3 10^3/uL (0.0-0.3); EOSINOPHILS % (AUTO) 3 % (0-10); HEMATOCRIT 46 % (40-54); HEMOGLOBIN 14.7 g/dL (13.3-17.7); LYMPHOCYTES # (AUTO) 2.5 10^3/uL (1.0-4.0); LYMPHOCYTES % (AUTO) 23 % (12-44); MEAN CORPUSCULAR HEMOGLOBIN 28 pg (25-34); MEAN CORPUSCULAR HGB CONC 32 g/dL (32-36); MEAN CORPUSCULAR VOLUME 87 fL (80-99); MEAN PLATELET VOLUME 11.8 fL (9.0-12.2); MONOCYTES # (AUTO) 0.8 10^3/uL (0.0-1.0); MONOCYTES % (AUTO) 8 % (0-12); NEUTROPHILS # (AUTO) 6.8 10^3/uL (1.8-7.8); NEUTROPHILS % (AUTO) 65 % (42-75); PLATELET COUNT 152 10^3/uL (130-400); WHITE BLOOD COUNT 10.5 10^3/uL (4.3-11.0)
[2022-05-23 21:33] LABS: BILIRUBIN,URINE NEGATIVE (NEGATIVE); CLARITY,URINE CLOUDY; COLOR,URINE RED; GLUCOSE, URINE (UA) NEGATIVE (NEGATIVE); KETONES,URINE TRACE (NEGATIVE); LEUKOCYTE ESTERASE ,URINE 1+ (NEGATIVE); NITRITE,URINE POSITIVE (NEGATIVE); PROTEIN,URINE 3+ (NEGATIVE)
[2022-05-23 21:34] LABS: BACTERIA,URINE NEGATIVE /HPF; WBC,URINE >100 /HPF
[2022-05-23 21:35] LABS: RBC,URINE >100 /HPF
[2022-05-23 21:45] LABS: POTASSIUM 4.9 MMOL/L (3.6-5.0)
[2022-05-23] MEDS ORDERED: LIDOCAINE 1% INJ 20 ML VIAL INJ ONE (21:45)
[2022-05-23] MEDS ORDERED: cefTRIAXone 1,000 MG VIAL IM ONE (21:45)
[2022-05-23 21:46] LABS: CALCIUM 9.8 MG/DL (8.5-10.1)
[2022-05-23 21:50] LABS: CREATININE SERUM 2.28 MG/DL (0.60-1.30)
[2022-05-23] MEDS ORDERED: CEFU250T80 PO (22:23)
[2022-05-23] MEDS ORDERED: PHEN-639 PO (22:23)
[2022-05-23] MEDS ORDERED: PHENAZOPYRIDINE 100 MG (PYRIDIUM) TABLET PO ONE (22:30)
== END 2022-05-23 22:42 | disposition home or self-care (01) ==
LOC: EDUNIT# 20:55 → ER 20:58
DX: N39.0 Urinary tract infection, site not specified (principal); E11.9 Type 2 diabetes mellitus without complications; Z79.4 Long term (current) use of insulin
CPT/HCPCS: 36415; 80048; 81000; 85025; 87077; 87088; 99284

== ENCOUNTER 2022-08-22 16:52 | Emergency (ER) | payer MEDICARE, OTHER ==
[~2022-08-22] VITALS: Ht 180 cm; Wt 108.0 kg
[~2022-08-22 16:52] MED LIST changes: +CEFU250T80 PO; +PHEN-639 PO
--- NOTE | 2022-08-22 17:20 | ED General ---
General Chief Complaint: Abdominal/GI Problems Stated Complaint: ASCITIES POCKET RIGHT ABDOMEN Nursing Triage Note: ARRIVED VIA WC TO ROOM 03 WITH COMPLAINTS OF ABD SWELLING ON THE RIGHT LOWER SIDE X2 MONTHS. RODDYRODOLFO STATES THEY ARE TRYING TO GET HIM INTO REHAB BECAUSE THE CAN'T TAKE CARE OF HIM AT HOME. Source of Information: Patient Exam Limitations: No Limitations History of Present Illness Date Seen by Provider: Aug 22, 2022 Time Seen by Provider: 17:18 Initial Comments to ER by private vehicle from home where he lives with his who is not able to take care of him. He has had some right lower abdominal distention. He is unable to care for himself according to adult children no he has been reluctant to seek help as of yet and insists that he is still capable of taking care of himself. and his petite is unable to care for him at home he follows with Dr. Hamm, has had some tenderness to the right lower abdomen for a few days as well as fatigue and general weakness. Timing/Duration: 1-2 Days Severity: Moderate Associated Systoms: No Chest Pain, No Cough, No Diaphoresis, No Fever/Chills; Malaise; No Nausea/Vomiting; Weakness Allergies and Home Medications Allergies Coded Allergies: NKANo Known Allergies (Unverified Allergy, Mild, 07/25/07) Patient Home Medication List Home Medication List Reviewed: Yes Allopurinol (Allopurinol) 100 Mg Tablet, 100 MG PO DAILY, (Reported) Entered as Reported by: GISELLE MOYA on 04/21/20 1029 Aspirin (Aspirin EC) 81 Mg Tablet.dr, 81 MG PO DAILY, (Reported) Entered as Reported by: GISELLE MOYA on 04/21/20 1029 Calcitriol (Calcitriol) 0.25 Mcg Capsule, 0.25 MG PO DAILY, (Reported) Entered as Reported by: GISELLE MOYA on 04/21/20 1029 Carvedilol (Carvedilol) 12.5 Mg Tablet, 25 MG PO BID Prescribed by: BILL SANTIAGO on 04/22/20 1209 Cefuroxime Axetil (Cefuroxime) 250 Mg Tablet, 250 MG PO BID Prescribed by: MARY STREETER on 05/23/223 Clopidogrel Bisulfate (Clopidogrel) 75 Mg Tablet, 75 MG PO DAILY, (Reported) Entered as Reported by: ALIVIA CARDENAS on 12/07/15 09 Furosemide (Furosemide) 80 Mg Tablet, 80 MG PO Q48H, (Reported) Entered as Reported by: GISELLE MOYA on 04/21/20 1029 Gabapentin (Neurontin) 300 Mg Capsule, 300 MG PO TID PRN for PAIN-BREAKTHROUGH, (Reported) Entered as Reported by: GISELLE MOYA on 04/21/20 1031 Hydrocodone/Acetaminophen (Hydrocodone-Acetamin 5-325 mg) 1 Each Tablet, 1 TAB PO Q4H PRN for PAIN-MODERATE (5-7) Prescribed by: BILL SANTIAGO on 04/22/20 1210 Insulin Aspart (Novolog Flexpen) 300 Units/3 Ml Solution, 40 UNITS SC AC, (Reported) Entered as Reported by: ALIVIA CARDENAS on 12/07/15 09 Insulin Detemir (Levemir Flextouch) 100 Unit/1 Ml Insuln.pen, 65 UNITS SC HS, (Reported) Entered as Reported by: ALIVIA CARDENAS on 12/07/15 09 Lorazepam (Ativan) 0.5 Mg Tablet, 0.5 MG PO BID PRN for ANXIETY, (Reported) Entered as Reported by: GISELLE MOYA on 04/21/20 1029 [place]-3 Fatty Acids/Fish Oil (Fish Oil 1,200 mg Softgel) 1 Each Capsule, 1,200 MG PO BID, (Reported) Entered as Reported by: ALIVIA CARDENAS on 12/07/15 09 Oxycodone HCl (Oxycontin) 10 Mg Tab.er.12h, 10 MG PO BID Prescribed by: BILL SANTIAGO on 04/22/20 1210 Pantoprazole Sodium (Pantoprazole Sodium) 40 Mg Tablet.dr, 40 MG PO DAILY, (Rep orted) Entered as Reported by: ALIVIA CARDEANS on 12/07/15 09 Phenazopyridine HCl (Pyridium) 100 Mg Tablet, 100 MG PO TID Prescribed by: MARY STREETER on 05/23/22 2223 Ramipril (Altace) 2.5 Mg Cap, 2.5 MG PO DAILY Prescribed by: BILL SANTIAGO on 04/22/20 1209 Sertraline HCl (Sertraline HCl) 50 Mg Tablet, 50 MG PO DAILY, (Reported) Entered as Reported by: GISELLE MOYA on 04/21/20 1029 Simvastatin (Simvastatin) 40 Mg Tablet, 40 MG PO HS, (Reported) Entered as Reported by: ALIVIA CARDENAS on 12/07/15 0906 Review of Systems Review of Systems Constitutional: see HPI EENTM: see HPI Respiratory: no symptoms reported Cardiovascular: no symptoms reported Genitourinary: no symptoms reported Musculoskeletal: no symptoms reported Skin: no symptoms reported Psychiatric/Neurological: No Symptoms Reported Hematologic/Lymphatic: No Symptoms Reported Immunological/Allergic: no symptoms reported Past Tsiczkq-Lfcinl-Lnazds Hx Patient Social History Smoking Status: Former Smoker Substance use?: No Alcohol Use?: No Immunizations Up To Date Tetanus Booster (TDap): Unknown PED Vaccines UTD: No First/Initial COVID19 Vaccinat: UNKNOWN Second COVID19 Vaccination Walter: UNKNOWN Third COVID19 Vaccination Date: UNKNOWN COVID19 Vaccine Guest Relations Officer: UNKNOWN Past Medical History Surgeries: Yes (Aortic and iliac STENT , PACEMAKER/DEFIBRILLATOR) Amputation, Gallbladder Respiratory: Yes (02) COPD Currently Using CPAP: No Currently Using BIPAP: No Cardiac: Yes (Systolic heart failure) Coronary Artery Disease, Heart Attack, High Cholesterol, Hypertension, Peripheral Vascular Neurological: Yes Neuropathy Reproductive Disorders: No Sexually Transmitted Disease: No HIV/AIDS: No Genitourinary: No Gastrointestinal: Yes Abdominal Hernia, Gastroesophageal Reflux Musculoskeletal: Yes ( PHANTOM PAIN LEFT LEG) Amputee Endocrine: Yes Diabetes, Insulin dep Loss of Vision: Denies Hearing Impairment: Hard of Hearing Cancer: No Psychosocial: No Integumentary: No Blood Disorders: No Adverse Reaction/Blood Tranf: No Family Medical History Cardiovascular disease 19 FATHER, Onset:60 years & older FH: breast cancer 19 MOTHER, Onset:Unknown G8 SISTER, Onset:Unknown FHx: mental retardation G8 SISTER, Onset:Pre- Myocardial infarction G8 BROTHER, Onset:Unknown G8 BROTHER, Onset:Unknown G8 BROTHER, Onset:Unknown G8 BROTHER, Onset:Unknown G8 BROTHER, Onset:Unknown G8 SISTER, Onset:40's - 50 Heart Disease, Cancer, Diabetes Physical Exam Vital Signs Vital Signs - First Documented 08/22/22 08/22/22 17:00 18:00 Temp 37.1 Pulse 108 Resp 16 B/P (MAP) 124/70 (88) Pulse Ox 97 O2 Delivery Room Air O2 Flow Rate 2.00 Capillary Refill : Less Than 3 Seconds Height, Weight, BMI Height: 5'9.00" Weight: 220lbs. 0.0oz. 99.106675to; 33.00 BMI Method:Stated General Appearance: No Apparent Distress, WD/WN, Chronically ill, Other (Lethargic falls asleep during exam) Eyes: Bilateral Eye Normal Inspection, Bilateral Eye PERRL HEENT: PERRL/EOMI, Normal ENT Inspection Neck: Full Range of Motion, Normal Inspection Respiratory: No Accessory Muscle Use, No Respiratory Distress Cardiovascular: No Edema, Normal Peripheral Pulses, Other (Only trace edema right lower extremity with some chronic discoloration of the right lower extremity. Daughter at the bedside reports that his diuretic was changed from 5 mg Monday to 2 mg every day. This was a recent change and has resulted in significant improvement in the degree of swelling of his leg. He has a left [id number] amputation following infection/diabetes complications about 20 years ago.) Gastrointestinal: Normal Bowel Sounds, Soft, Other (There is a bulge to the right lower abdominal wall without apparent tenderness to palpation) Extremity: Pedal Edema (Trace), Other (Delayed cap refill of right foot there is still capillary refill about 3 seconds. There is some erythema to the leg as well.) Neurologic/Psychiatric: Oriented x3, Other (Lethargic) Focused Exam Sepsis Stage: Septic Shock Possible Source: Skin/Soft Tissue Lactate Level 08/22/22 18:27: Lactic Acid Level 1.80 Time of Focused Exam: 20:41 Respiratory: No Accessory Muscle Use, No Respiratory Distress Cardiovascular: Regular Rate, Rhythm (90s), JVD Capillary Refill: NONE Skin: normal color, warm/dry Lactic Acid Level Laboratory Tests Test 08/22/22 18:27 Lactic Acid Level 1.80 MMOL/L (0.50-2.00) Within 3hrs of presentation: Admin fluids, Admin ABX, Blood cultures prior to ABX's, Focus exam, Lactate level Procedures/Interventions Central Line Procedure: betadine prep, sterile drapes applied, sterile dressing applied Position: internal jugular (R) Anesthesia: Lidocaine Volume Anesthetic (ccs): 5 Complications: none Post Position: sutured, good blood return, position confirmed w/ CXR Progress/Results/Core Measures Suspected Sepsis SIRS Temperature: Pulse: 108 Respiratory Rate: 16 Laboratory Tests 08/22/22 17:15: White Blood Count 15.0H Blood Pressure 124 /70 Mean: 88 08/22/22 18:27: Lactic Acid Level 1.80 Laboratory Tests 08/22/22 17:15: Creatinine 4.14H, Platelet Count 133, Total Bilirubin 4.6H Results/Orders Lab Results Laboratory Tests Test 08/22/22 17:15 08/22/22 18:20 08/22/22 18:27 08/22/22 19:40 Range/Units White Blood Count 15.0 H 4.3-11.0 10^3/uL Red Blood Count 4.39 4.30-5.52 10^6/uL Hemoglobin 13.1 L 13.3-17.7 g/dL Hematocrit 39 L 40-54 % Mean Corpuscular Volume 89 80-99 fL Mean Corpuscular Hemoglobin 30 25-34 pg Mean Corpuscular Hemoglobin Concent 33 32-36 g/dL Red Cell Distribution Width 17.6 H 10.0-14.5 % Platelet Count 133 130-400 10^3/uL Mean Platelet Volume 12.4 H 9.0-12.2 fL Immature Granulocyte % (Auto) 1 % Neutrophils (%) (Auto) 81 H 42-75 % Lymphocytes (%) (Auto) 11 L 12-44 % Monocytes (%) (Auto) 7 0-12 % Eosinophils (%) (Auto) 0 0-10 % Basophils (%) (Auto) 1 0-10 % Neutrophils # (Auto) 12.1 H 1.8-7.8 10^3/uL Lymphocytes # (Auto) 1.6 1.0-4.0 10^3/uL Monocytes # (Auto) 1.1 H 0.0-1.0 10^3/uL Eosinophils # (Auto) 0.1 0.0-0.3 10^3/uL Basophils # (Auto) 0.1 0.0-0.1 10^3/uL Immature Granulocyte # (Auto) 0.1 0.0-0.1 10^3/uL Neutrophils % (Manual) 81 % Lymphocytes % (Manual) 12 % Monocytes % (Manual) 6 % Eosinophils % (Manual) 1 % Blood Morphology Comment NORMAL Sodium Level 130 L 135-145 MMOL/L Potassium Level 3.8 3.6-5.0 MMOL/L Chloride Level 90 L 98-107 MMOL/L Carbon Dioxide Level 24 21-32 MMOL/L Anion Gap 16 H 5-14 MMOL/L Blood Urea Nitrogen 69 H 7-18 MG/DL Creatinine 4.14 H 0.60-1.30 MG/DL Estimat Glomerular Filtration Rate 14 BUN/Creatinine Ratio 17 Glucose Level 112 H 70-105 MG/DL Calcium Level 9.2 8.5-10.1 MG/DL Corrected Calcium 9.8 8.5-10.1 MG/DL Total Bilirubin 4.6 H 0.1-1.0 MG/DL Aspartate Amino Transf (AST/SGOT) 27 5-34 U/L Alanine Aminotransferase (ALT/SGPT) 10 0-55 U/L Alkaline Phosphatase 173 H 40-136 U/L Total Protein 7.2 6.4-8.2 GM/DL Albumin 3.3 3.2-4.5 GM/DL Blood Gas Puncture Site L WRIST Blood Gas Patient Temperature 36.1 Arterial Blood pH 7.44 H 7.37-7.43 Arterial Blood Partial Pressure CO2 38 35-45 MMHG Arterial Blood Partial Pressure O2 80 79-93 MMHG Arterial Blood HCO3 26 23-27 MMOL/L Arterial Blood Total CO2 26.9 21.0-31.0 MMOL/L Arterial Blood Oxygen Saturation 98 94-100 % Arterial Blood Base Excess 1.7 -2.5-2.5 MMOL/L Lul Test NA Blood Gas Ventilator Setting NO Blood Gas Inspired Oxygen NA Lactic Acid Level 1.80 0.50-2.00 MMOL/L Ammonia 19 11-32 UMOL/L Urine Color DARK YELLOW Urine Clarity SL CLOUDY Urine pH 5.5 5-9 Urine Specific [place] 1.020 1.016-1.022 Urine Protein 1+ H NEGATIVE Urine Glucose (UA) NEGATIVE NEGATIVE Urine Ketones NEGATIVE NEGATIVE Urine Nitrite NEGATIVE NEGATIVE Urine Bilirubin NEGATIVE NEGATIVE Urine Urobilinogen 4.0 < = 1.0 MG/DL Urine Leukocyte Esterase 1+ H NEGATIVE Urine RBC (Auto) 2+ H NEGATIVE Urine RBC NONE /HPF Urine WBC 10-25 H /HPF Urine Squamous Epithelial Cells NONE /HPF Urine Renal Epithelial Cells NONE /HPF Urine Crystals NONE /LPF Urine Bacteria LARGE H /HPF Urine Casts NONE /LPF Urine Mucus NEGATIVE /LPF Urine Culture Indicated YES My Orders Orders - MARY STREETER INSURANCE LAW SPECIALIST Cbc With Automated Diff (08/22/22 17:21) Comprehensive Metabolic Panel (08/22/22 17:21) Ct Abdomen/Pelvis Wo (08/22/22 17:21) Ua Culture If Indicated (08/22/22 17:21) Chest 1 View, Ap/Pa Only (08/22/22 17:21) Arterial Blood Gas (08/22/22 17:21) Manual Differential (08/22/22 17:15) Ammonia (08/22/22 18:04) Lactated Ringers (Lr 1000 Ml Iv Solution (08/22/22 18:15) Blood Culture (08/22/22 18:41) Lactic Acid Analyzer (08/22/22 18:41) Piperacillin Sodium/Tazobactam (Zosyn Vi (08/22/22 18:45) Chest 1 View, Ap/Pa Only (08/22/22 19:29) Lidocaine 2% (Urojet) (Xylocaine Urojet) (08/22/22 19:45) Urine Culture (08/22/22 19:40) Norepinephrine 8 Mg/250 Ml (Norepinephri (08/22/22 20:15) Lactated Ringers (Lr 1000 Ml Iv Solution (08/22/22 20:15) Lactated Ringers (Lr 1000 Ml Iv Solution (08/22/22 20:30) Medications Given in ED Current Medications Medications Dose Ordered Sig/Amelia Route Start Time Stop Time Status Last Admin Dose Admin Piperacillin Sod/ Tazobactam Sod 4.5 gm/Sodium Chloride 100 ml @ 200 mls/hr ONCE ONCE IV 08/22/22 18:45 08/22/22 19:14 DC 08/22/22 19:01 200 MLS/HR Vital Signs/I&O 08/22/22 08/22/22 17:00 18:00 Temp 37.1 Pulse 108 Resp 16 B/P (MAP) 124/70 (88) Pulse Ox 97 96 O2 Delivery Room Air Nasal Cannula O2 Flow Rate 2.00 Capillary Refill : Less Than 3 Seconds Blood Pressure Mean: 88 Departure Communication (Admissions) 3722-blood pressure has fallen to 79/43 then 81/48, then 86/50 then 81/48. Chest x-ray shows vascular congestion pulmonary edema. We will limit fluid resuscitation to 1 L. Unsuccessful peripheral IV attempts x1 ended up using ultrasound for a 20-gauge IV in the right antecubital fossa. Due to need for additional venous access and potentially pressors will start central line. Based on kidney dysfunction will need to transfer to a facility with nephrology services per our hospitalist Dr Santiago's request. 2016-spoke with [facility] they do not have any beds [facility] have a bed spoke with the lithographic photographer Dr. Crawley who recommends 30/kg fluid bolus, do not do the Levophed. Accepts patient for transfer. Currently blood pressure 78/60 second Liter of LR infusing. Based on his height of 180 cm and weight of 108 kg (BMI 33) this gives an adjusted body weight of 88 kg, IBW of 75kg. We will do 30 mL/kg fluid bolus based on Adjusted body weight. 2039-BP 72/44 second liter of LR still infusing. Daughter and at beside. Notified of transfer plans to [place]. Contreras cath has had about 150ml dark yellow urine out. NAME: MIRIAMSIN Felton Ontodia REC#: [id number] PT STATUS: REG ER : 1945 PHYSICIAN: MARY STREETER APRN ADMIT DATE: 08/22/22/ER Draft Date of Exam:08/22/22 CHEST 1 VIEW, AP/PA ONLY INDICATION: Swelling right side for the last 2 months. EXAMINATION: Chest 08/22/2022 COMPARISON: 04/12/2022 FINDINGS: There are findings of edema throughout both lungs. Superimposed infiltrates not excluded. There is cardiomegaly with pulmonary vascular congestion. No effusions. No pneumothorax. There is a left-sided pacemaker stable from previous imaging. IMPRESSION: 1. Findings of pulmonary edema with superimposed infiltrates not excluded. Dictated on workstation # [id number] Dict: 08/22/221801 Trans: 08/22/221808 [facility] [id number] [facility] [place], [place] NAME: MIRIAMSINEverlater REC#: [id number] PT STATUS: REG ER : 1945 PHYSICIAN: MARY STREETER APRN ADMIT DATE: 08/22/22/ER Draft Date of Exam:08/22/22 CHEST 1 VIEW, AP/PA ONLY EXAMINATION: Chest 1 view HISTORY: central line COMPARISON: 08/22/2022 FINDINGS: Right internal jugular central venous catheter tip terminates in the superior vena cava. Defibrillator is present. Heart is enlarged. There is moderate edema. No pleural effusion or pneumothorax. No change from prior exam. IMPRESSION: 1. Moderate pulmonary edema. Dictated on workstation # [id number] Dict: 08/22/222001 Trans: 08/22/222018 [facility] [id number] Interpreted by: RONDA NUÑEZ MD Electronically signed by : NAME: SIN PINEDA REC#: [id number] PT STATUS: REG ER : 1945 PHYSICIAN: MARY STREETER INSURANCE LAW SPECIALIST ADMIT DATE: 08/22/22/ER Signed Date of Exam:08/22/22 CT ABDOMEN/PELVIS WO EXAMINATION: CT abdomen and pelvis without contrast. TECHNIQUE: Multiple contiguous axial images were obtained through the abdomen and pelvis without the use of intravenous contrast. All CT scans use one or more of the following dose optimizing techniques: automated exposure control, MA and/or KvP adjustment based on patient size and exam type or iterative reconstruction. HISTORY: Abdominal bulge. COMPARISON: 04/12/2022 FINDINGS: Limited views of the lower thorax show peribronchial vascular thickening and groundglass with septal lines. Heart is enlarged. Pacemaker is present. The liver is normal without focal lesion. There is no biliary ductal dilation. The gallbladder is absent. Pancreas is normal. Spleen is normal. Adrenal glands are normal. The kidneys are normal. There is no hydronephrosis. Urinary bladder is normal. There is presacral stranding. There is mild mesenteric edema. No free fluid or air. No abdominal or pelvic lymphadenopathy. There has been an aortobiiliac bypass. There are several fat-containing ventral abdominal hernias. There are no suspicious osseous lesions. IMPRESSION: 1. Presacral stranding and mild mesenteric edema, correlate for evidence of proctitis or history of radiation therapy to the pelvis. 2. Peribronchovascular thickening and groundglass with septal lines in the lung bases show some edema. 3. There are several small fat-containing ventral abdominal hernias. Dictated by: Dictated on workstation # [id number] Dict: 10/1809 Trans: 08/22/221834 [id number] Interpreted by: RONDA NUÑEZ MD Electronically signed by: RONDA NUÑEZ MD 08/22/221834 Impression Primary Impression: Acute on chronic renal failure Additional Impressions: Sepsis Cellulitis of right leg Pulmonary edema Disposition: XFER SHT-TRM HOSP Condition: Stable Transfer Transfer Reason: Exceeds level of care Time Spoke to Accepting Phy: 20:30 Departure-Patient Inst. Referrals: JS CUNHA MD (PCP/Family) Primary Care Physician MARY SRTEETER APRN Aug 22, 2022 17:20
[2022-08-22 17:33] LABS: BASOPHILS # (AUTO) 0.1 10^3/uL (0.0-0.1); BASOPHILS % (AUTO) 1 % (0-10); EOSINOPHILS # (AUTO) 0.1 10^3/uL (0.0-0.3); EOSINOPHILS % (AUTO) 0 % (0-10); HEMATOCRIT 39 % (40-54); HEMOGLOBIN 13.1 g/dL (13.3-17.7); LYMPHOCYTES # (AUTO) 1.6 10^3/uL (1.0-4.0); LYMPHOCYTES % (AUTO) 11 % (12-44); MEAN CORPUSCULAR HEMOGLOBIN 30 pg (25-34); MEAN CORPUSCULAR HGB CONC 33 g/dL (32-36); MEAN CORPUSCULAR VOLUME 89 fL (80-99); MEAN PLATELET VOLUME 12.4 fL (9.0-12.2); MONOCYTES # (AUTO) 1.1 10^3/uL (0.0-1.0); MONOCYTES % (AUTO) 7 % (0-12); NEUTROPHILS # (AUTO) 12.1 10^3/uL (1.8-7.8); NEUTROPHILS % (AUTO) 81 % (42-75); PLATELET COUNT 133 10^3/uL (130-400)
[2022-08-22 17:47] LABS: ALBUMIN 3.3 GM/DL (3.2-4.5)
[2022-08-22 17:48] LABS: POTASSIUM 3.8 MMOL/L (3.6-5.0)
[2022-08-22 17:49] LABS: CALCIUM 9.2 MG/DL (8.5-10.1)
[2022-08-22 17:50] LABS: TOTAL PROTEIN 7.2 GM/DL (6.4-8.2)
[2022-08-22 17:52] LABS: BILIRUBIN,TOTAL 4.6 MG/DL (0.1-1.0)
[2022-08-22 17:54] LABS: CREATININE SERUM 4.14 MG/DL (0.60-1.30)
--- NOTE | 2022-08-22 18:09 | Diagnostic Imaging Report ---
INDICATION: Swelling right side for the last 2 months. EXAMINATION: Chest 08/22/2022 COMPARISON: 04/12/2022 FINDINGS: There are findings of edema throughout both lungs. Superimposed infiltrates not excluded. There is cardiomegaly with pulmonary vascular congestion. No effusions. No pneumothorax. There is a left-sided pacemaker stable from previous imaging. IMPRESSION: 1. Findings of pulmonary edema with superimposed infiltrates not excluded. Dictated by: Dictated on workstation # [id number]
[2022-08-22 18:13] LABS: EOSINOPHILS % (MANUAL) 1 %; LYMPHOCYTES % (MANUAL) 12 %; MONOCYTES % (MANUAL) 6 %; NEUTROPHILS % (MANUAL) 81 %; RBC MORPH NORMAL
--- NOTE | 2022-08-22 18:16 | Diagnostic Imaging Report ---
EXAMINATION: CT abdomen and pelvis without contrast. TECHNIQUE: Multiple contiguous axial images were obtained through the abdomen and pelvis without the use of intravenous contrast. All CT scans use one or more of the following dose optimizing techniques: automated exposure control, MA and/or KvP adjustment based on patient size and exam type or iterative reconstruction. HISTORY: Abdominal bulge. COMPARISON: 04/12/2022 FINDINGS: Limited views of the lower thorax show peribronchial vascular thickening and groundglass with septal lines. Heart is enlarged. Pacemaker is present. The liver is normal without focal lesion. There is no biliary ductal dilation. The gallbladder is absent. Pancreas is normal. Spleen is normal. Adrenal glands are normal. The kidneys are normal. There is no hydronephrosis. Urinary bladder is normal. There is presacral stranding. There is mild mesenteric edema. No free fluid or air. No abdominal or pelvic lymphadenopathy. There has been an aortobiiliac bypass. There are several fat-containing ventral abdominal hernias. There are no suspicious osseous lesions. IMPRESSION: 1. Presacral stranding and mild mesenteric edema, correlate for evidence of proctitis or history of radiation therapy to the pelvis. 2. Peribronchovascular thickening and groundglass with septal lines in the lung bases show some edema. 3. There are several small fat-containing ventral abdominal hernias. Dictated by: Dictated on workstation # [id number]
[2022-08-22] MEDS: LACTATED RINGERS 1,000 ML IV SCH ×2 (18:20→20:19)
[2022-08-22 18:27] LABS: ABG BASE EXCESS 1.7 MMOL/L (-2.5-2.5); ABG OXYGEN SATURATION 98 % (94-100); ABG PCO2 38 MMHG (35-45); ABG PH 7.44 (7.37-7.43); ABG PO2 80 MMHG (79-93); ABG TCO2 26.9 MMOL/L (21.0-31.0); PATIENT TEMP 36.1; VENTILATOR NO
[2022-08-22] MEDS ORDERED: PIPERACILLIN SODIUM/TAZOBACTAM 4.5 GM in NS (IVPB) 100 ML IV ONE (18:45)
[2022-08-22] MEDS ORDERED: LIDOCAINE UROJET 2% GEL 10 ML PKG TOP ONE (19:45)
[2022-08-22 19:48] LABS: BILIRUBIN,URINE NEGATIVE (NEGATIVE); CLARITY,URINE SL CLOUDY; COLOR,URINE DARK YELLOW; GLUCOSE, URINE (UA) NEGATIVE (NEGATIVE); KETONES,URINE NEGATIVE (NEGATIVE); LEUKOCYTE ESTERASE ,URINE 1+ (NEGATIVE); NITRITE,URINE NEGATIVE (NEGATIVE); PH,URINE 5.5 (5-9); PROTEIN,URINE 1+ (NEGATIVE)
[2022-08-22 19:54] LABS: BACTERIA,URINE LARGE /HPF
[2022-08-22] MEDS ORDERED: LACTATED RINGERS 1,000 ML IV SCH ×2 (20:15→20:30)
[2022-08-22] MEDS ORDERED: NOREPINEPHRINE 8 MG/250 ML 250 ML IV SCH (20:15)
--- NOTE | 2022-08-22 20:20 | Diagnostic Imaging Report ---
EXAMINATION: Chest 1 view HISTORY: central line COMPARISON: 08/22/2022 FINDINGS: Right internal jugular central venous catheter tip terminates in the superior vena cava. Defibrillator is present. Heart is enlarged. There is moderate edema. No pleural effusion or pneumothorax. No change from prior exam. IMPRESSION: 1. Moderate pulmonary edema. Dictated by: Dictated on workstation # [id number]
[2022-08-22 21:58] VITALS: BP 90/44
[2022-08-23] MEDS: LACTATED RINGERS 1,000 ML IV SCH (00:46)
== END 2022-08-22 21:58 | disposition short-term general hospital (02) ==
LOC: EDUNIT# 16:52 → ER 16:57
DX: A41.9 Sepsis, unspecified organism (principal); E11.22 Type 2 diabetes mellitus with diabetic chronic kidney disease; I13.0 Hypertensive heart and chronic kidney disease with heart failure and stage 1 through stage 4 chronic kidney disease, or unspecified chronic kidney disease; N18.9 Chronic kidney disease, unspecified; I50.20 Unspecified systolic (congestive) heart failure; L03.115 Cellulitis of right lower limb; J81.1 Chronic pulmonary edema; E11.40 Type 2 diabetes mellitus with diabetic neuropathy, unspecified; Z87.891 Personal history of nicotine dependence; Z79.4 Long term (current) use of insulin
CPT/HCPCS: 36415; 51702; 71045; 74176; 80053; 81000; 82140; 82805; 83605; 85007; 85027; 87040; 87077; 87088; 87186; 99291